=== PATIENT | female | born 1945 | race Caucasian/White ===

== ENCOUNTER 2016-10-17 17:40 | Inpatient (IN) | payer MEDICARE, OTHER ==
[~2016-10-17] VITALS: Ht 157.5 cm; Wt 78.2 kg
[~2016-10-17 17:40] MED LIST: ALBU8.5H6 IH; ASPI-482 PO; ASPI1TAB2 PO; BUPR100T7 PO; BUPR100T8 PO; BUSP10TA PO; CARB200T2 PO; CARB200T4 PO; CARV12.5 PO; CETI-17 PO; CHOL200044 PO; CIPR500T94 PO; DEXL60CA2 PO; DICL100G18 TP; DOCU-109 PO; DOMPERIDONE PO; DULO60CA6 PO; ESZO2TAB PO; FLUT16SP21 NS; GABA600T14 PO; HYDR25TA PO; INSU100I17 SQ; INSU100I27 SQ; INSU100V8 SQ; LEVO750T31 PO; MAG DELAY64 MG PO; MAGN1TAB PO; METF10002 PO; MONT10TA9 PO; MULT-246 PO; NOVALOG; OMEG500C PO; ONDA8TAB15 PO; OXYC-327 PO; POLY17PO5 PO; POTA500T5 PO; RANI150C PO; ROPI1TAB2 PO; SIMV10TA PO; SUCR1TAB PO; TAPE100T7 PO; TELM20TA PO; TIZA4TAB PO; [UNRECOGNIZED DRUG - CODE] PO
[2016-10-17] MEDS ORDERED: tiZANidine 4 MG TABLET. PO PRN (18:15)
[2016-10-17] MEDS ORDERED: DICLOFENAC SODIUM 1% TOPICAL GEL 100GM TUBE. TP PRN (18:15)
[2016-10-17] MEDS ORDERED: DOCUSATE SODIUM 100 MG CAPSULE PO PRN (18:15)
[2016-10-17 18:24] VITALS: BP 145/81
[2016-10-17] MEDS ORDERED: ONDANSETRON PF 4 MG/2 ML VIAL. IV PRN (18:30)
[2016-10-17] MEDS ORDERED: MAG HYDROX/AL HYDROX/SIMETH 30 ML ORAL.SUSP PO PRN (18:45)
[2016-10-17] MEDS ORDERED: ZOLPIDEM 5 MG TABLET. PO PRN (18:45)
[2016-10-17 19:39] LABS: BASO # 0.3 x10^3/uL (0.0-0.2); BASO % 1 % (0-3); EOS # 0.4 x10^3/uL (0.0-0.7); EOS % 2 % (0-3); HEMOGLOBIN 11.6 g/dL (12.0-15.5); LYMPH # 8.6 x10^3/uL (1.0-4.8); LYMPH % 39 % (24-48); MEAN CORPUSCULAR HEMOGLOBIN 30 pg (25-35); MEAN CORPUSCULAR HGB CONC 32 g/dL (31-37); MEAN CORPUSCULAR VOLUME 94 fL (79-100); MONO # 1.4 x10^3/uL (0.0-1.1); MONO % 6 % (0-9); NEUT # 11.6 x10^3uL (1.8-7.7); NEUT % 52 % (31-73); PLATELET COUNT 466 x10^3/uL (140-400); RED BLOOD COUNT 3.83 x10^6/uL (3.50-5.40); RED CELL DISTRIBUTION WIDTH 13.6 % (11.5-14.5); WHITE BLOOD COUNT 22.2 x10^3/uL (4.0-11.0)
[2016-10-17] MEDS ORDERED: BUPR150T8 PO (19:43)
[2016-10-17] MEDS ORDERED: ASPI81TA50 PO (19:47)
[2016-10-17] MEDS ORDERED: SIMV10TA PO (19:47)
[2016-10-17] MEDS ORDERED: CLON0.5T PO (19:47)
[2016-10-17] MEDS ORDERED: OMEG1CAP50 PO (19:47)
[2016-10-17] MEDS ORDERED: FERR-26 PO (19:47)
[2016-10-17 19:50] LABS: ALBUMIN 3.3 g/dL (3.4-5.0); ALBUMIN/GLOBULIN RATIO 0.7 (1.0-1.7); CALCIUM 8.8 mg/dL (8.5-10.1); CREATININE 1.2 mg/dL (0.6-1.0); GFR 44.3; POTASSIUM 4.2 mmol/L (3.5-5.1); TOTAL BILIRUBIN 0.2 mg/dL (0.2-1.0); TOTAL PROTEIN 8.2 g/dL (6.4-8.2)
[2016-10-17] MEDS ORDERED: MELO15TA6 PO (19:55)
[2016-10-17] MEDS ORDERED: PANT40TA3 PO (19:55)
[2016-10-17] MEDS ORDERED: LOSA25TA4 PO (19:55)
[2016-10-17] MEDS ORDERED: INSU100V31 SQ (19:55)
[2016-10-17] MEDS ORDERED: ASCO500T2 PO (19:55)
[2016-10-17] MEDS ORDERED: CYCL-331 PO (19:55)
[2016-10-17] MEDS ORDERED: ROPI1TAB PO (19:55)
[2016-10-17] MEDS ORDERED: NAPR500T PO (19:55)
[2016-10-17] MEDS ORDERED: MIRT15TA PO (19:55)
[2016-10-17] MEDS: IPRATRPIUM/ALBUTEROL 0.5/2.5MG 3 ML NEBU. NEB SCH (20:00)
[2016-10-17] MEDS ORDERED: AZITHROMYCIN 500 MG in IV NORMAL SALINE 250ML 250 ML IV SCH (20:00)
[2016-10-17] MEDS ORDERED: NORT25CA PO (20:10)
[2016-10-17 20:15] LABS: % EOS 2 % (0-5); % LYMPHS 42 % (24-48); % MONOS 10 % (0-10); % SEGS 46 % (35-66)
[2016-10-17 20:21] LABS: PLT ESTIMATE ADEQUATE (ADEQUATE)
[2016-10-17 20:22] LABS: ANISOCYTOSIS SLIGHT
[2016-10-17] MEDS ORDERED: DEXL60CA2 PO (20:46)
[2016-10-17] MEDS ORDERED: MIRT30TA3 PO (20:46)
[2016-10-17] MEDS ORDERED: ATOR10TA60 PO (20:46)
[2016-10-17] MEDS ORDERED: LISI-338 PO (20:47)
[2016-10-17] MEDS ORDERED: carBAMazepine XR 200 MG TAB.ER.12H PO SCH (21:00)
[2016-10-17] MEDS ORDERED: clonazePAM 0.5 MG TABLET PO SCH (21:00)
[2016-10-17] MEDS ORDERED: INSULIN DETEMIR 300 UNITS/3 ML INSULN.PEN. SQ SCH (21:00)
[2016-10-17] MEDS ORDERED: GABAPENTIN 300 MG CAPSULE. PO SCH (21:00)
[2016-10-17] MEDS ORDERED: SUCRALFATE 1 GM TABLET. PO SCH (21:00)
[2016-10-17] MEDS ORDERED: rOPINIRole 1 MG TABLET. PO SCH (21:00)
[2016-10-17] MEDS ORDERED: DULoxetine HCL 60 MG CAPSULE.DR PO SCH (21:00)
[2016-10-17] MEDS ORDERED: INSULIN ASPART 300 UNITS/3 ML INSULN.PEN SQ SCH (21:00)
[2016-10-17] MEDS ORDERED: NORTRIPTYLINE 25 MG CAPSULE PO SCH (21:00)
[2016-10-17] MEDS ORDERED: BUPR150T20 PO (21:21)
[2016-10-17] MEDS ORDERED: BUSP10TA PO (21:23)
[2016-10-17] MEDS ORDERED: NORT50CA PO (21:24)
[2016-10-17] MEDS ORDERED: AMLO5TAB2 PO (21:26)
[2016-10-17] MEDS ORDERED: IV NORMAL SALINE 250ML 250 ML ONE (22:09)
[2016-10-17] MEDS: ENOXAPARIN 40 MG/0.4 ML DISP.SYRIN. SQ SCH (22:35)
[2016-10-17] MEDS: MAGNESIUM CHLORIDE ER 64 MG TABLET.ER PO SCH (22:35)
[2016-10-17] MEDS: INSULIN DETEMIR 300 UNITS/3 ML INSULN.PEN. SQ SCH (22:40)
[2016-10-17] MEDS: INSULIN ASPART 300 UNITS/3 ML INSULN.PEN SQ SCH (22:41)
[2016-10-17 23:12] VITALS: BP 126/69
[2016-10-18] MEDS: IV NORMAL SALINE 1,000ML 1,000 ML IV SCH ×3 (03:30→21:23)
[2016-10-18 05:29] VITALS: BP 156/82
[2016-10-18] MEDS: IPRATRPIUM/ALBUTEROL 0.5/2.5MG 3 ML NEBU. NEB SCH ×4 (05:33→20:24)
[2016-10-18 06:27] LABS: BACTERIA,URINE 0 /HPF (0-FEW); BILIRUBIN,URINE NEG (NEG); CLARITY,URINE CLEAR; COLOR,URINE YELLOW; GLUCOSE,URINE NEG (NEG); HYALINE CASTS, URINE OCC /HPF; NITRITE,URINE NEG (NEG); RBC,URINE 0 /HPF (0-2); SQUAMOUS EPITHELIAL CELL,UR OCC /LPF; UROBILINOGEN,URINE 0.2 mg/dL (0.2 mg/dL)
[2016-10-18 06:36] LABS: BASO # 0.2 x10^3/uL (0.0-0.2); BASO % 1 % (0-3); EOS # 0.5 x10^3/uL (0.0-0.7); EOS % 2 % (0-3); HEMOGLOBIN 10.3 g/dL (12.0-15.5); LYMPH # 8.6 x10^3/uL (1.0-4.8); LYMPH % 39 % (24-48); MEAN CORPUSCULAR HEMOGLOBIN 31 pg (25-35); MEAN CORPUSCULAR HGB CONC 32 g/dL (31-37); MEAN CORPUSCULAR VOLUME 95 fL (79-100); MONO # 1.2 x10^3/uL (0.0-1.1); MONO % 6 % (0-9); NEUT # 11.4 x10^3uL (1.8-7.7); NEUT % 52 % (31-73); PLATELET COUNT 400 x10^3/uL (140-400); RED BLOOD COUNT 3.36 x10^6/uL (3.50-5.40); RED CELL DISTRIBUTION WIDTH 13.6 % (11.5-14.5); WHITE BLOOD COUNT 21.9 x10^3/uL (4.0-11.0)
[2016-10-18 06:44] LABS: CALCIUM 8.3 mg/dL (8.5-10.1); CREATININE 1.2 mg/dL (0.6-1.0); GFR 44.3; POTASSIUM 4.7 mmol/L (3.5-5.1)
[2016-10-18] MEDS ORDERED: metFORMIN 500 MG TABLET PO SCH (08:00)
[2016-10-18] MEDS: amLODIPine BESYLATE 5 MG TABLET PO SCH (08:42)
[2016-10-18] MEDS: DULoxetine HCL 60 MG CAPSULE.DR PO SCH (08:42)
[2016-10-18] MEDS: ASPIRIN ENTERIC COATED 81 MG TABLET.DR. PO SCH (08:42)
[2016-10-18] MEDS: DEXLANSOPRAZOLE 60 MG PO SCH (08:42)
[2016-10-18] MEDS: MONTELUKAST 10 MG TABLET. PO SCH (08:43)
[2016-10-18] MEDS: METFORMIN PO SCH ×2 (08:43→17:12)
[2016-10-18] MEDS: busPIRone 10 MG TABLET. PO SCH ×3 (08:43→21:25)
[2016-10-18] MEDS: buPROPion SR 150 MG TABLET.SA PO SCH ×2 (08:43→12:03)
[2016-10-18] MEDS: MAGNESIUM CHLORIDE ER 64 MG TABLET.ER PO SCH ×2 (08:49→21:30)
[2016-10-18] MEDS: FLUTICASONE 50MCG/NASAL SPRAY 16GM BOTTLE. NS SCH (08:49)
[2016-10-18] MEDS: INSULIN DETEMIR 300 UNITS/3 ML INSULN.PEN. SQ SCH ×2 (08:59→21:35)
[2016-10-18] MEDS ORDERED: ASPIRIN ENTERIC COATED 81 MG TABLET.DR. PO SCH (09:00)
[2016-10-18] MEDS ORDERED: MONTELUKAST 10 MG TABLET. PO SCH (09:00)
[2016-10-18] MEDS ORDERED: LOSARTAN 25 MG TABLET. PO SCH (09:00)
--- NOTE | 2016-10-18 09:23 | RAD ---
INDICATION: Infectious symptoms with concern for pneumonia COMPARISON: 12/19/2014 TECHNIQUE: Axial CT images obtained through the chest. No intravenous contrast. FINDINGS: Mild linear opacity bilateral lower lungs. No evidence of pneumothorax. Severe coronary artery calcific atherosclerosis. Leads are seen within the central canal. Thoracic aorta is nonaneurysmal. Degenerative changes the spine with osteophyte formation. IMPRESSION: 1. Mild linear opacities in bilateral lungs. Given the morphology would favor atelectasis or scarring as the etiology. 2. Severe calcific atherosclerosis including coronary arteries. 3. Degenerative changes of spine. 4. The partially visualized humeral head on the right there is relative lucency throughout the marrow. Could be from benign osseous demineralization but would correlate with symptoms in the region and history of neoplasm to ensure that there is not a more worrisome infiltrative process which is considered less likely. PQRS Compliance Statement: One or more of the following individualized dose reduction techniques were utilized for this examination: 1. Automated exposure control 2. Adjustment of the mA and/or kV according to patient size 3. Use of iterative reconstruction technique
--- NOTE | 2016-10-18 09:56 | PDOC ---
SUBJECTIVE: Feels better OBJECTIVE: WDWN NAD Alert and oriented feels better mild throat normal neck supple Lungs diminished poor movement of air but improved CVR exam regular sinus rhythm Abdomen soft nontender no rebounding or guarding positive bowel sounds External concerns edema Neurologically alert and oriented 3 Vital Signs: Vital Signs Date Time Temp Pulse Resp B/P (MAP) Pulse Ox O2 Delivery O2 Flow Rate FiO2 10/18/16 09:28 95 Room Air 10/18/16 08:42 105 156/82 10/18/16 05:29 97.3 16 I & O Intake and Output 10/18/16 07:00 Intake Total 1748 ml Balance 1748 ml Intake Oral 1150 ml IV Total 598 ml Labs: Laboratory Tests Test 10/17/16 18:43 10/17/16 21:40 10/17/16 22:37 10/18/16 01:55 White Blood Count 22.2 x10^3/uL (4.0-11.0) Red Blood Count 3.83 x10^6/uL (3.50-5.40) Hemoglobin 11.6 g/dL (12.0-15.5) Hematocrit 36.0 % (36.0-47.0) Mean Corpuscular Volume 94 fL (79-100) Mean Corpuscular Hemoglobin 30 pg (25-35) Mean Corpuscular Hemoglobin Concent 32 g/dL (31-37) Red Cell Distribution Width 13.6 % (11.5-14.5) Platelet Count 466 x10^3/uL (140-400) Neutrophils (%) (Auto) 52 % (31-73) Lymphocytes (%) (Auto) 39 % (24-48) Monocytes (%) (Auto) 6 % (0-9) Eosinophils (%) (Auto) 2 % (0-3) Basophils (%) (Auto) 1 % (0-3) Neutrophils # (Auto) 11.6 x10^3uL (1.8-7.7) Lymphocytes # (Auto) 8.6 x10^3/uL (1.0-4.8) Monocytes # (Auto) 1.4 x10^3/uL (0.0-1.1) Eosinophils # (Auto) 0.4 x10^3/uL (0.0-0.7) Basophils # (Auto) 0.3 x10^3/uL (0.0-0.2) Segmented Neutrophils % 46 % (35-66) Lymphocytes % 42 % (24-48) Monocytes % 10 % (0-10) Eosinophils % 2 % (0-5) Platelet Estimate Adequate (ADEQUATE) Large Platelets Present Anisocytosis Slight D-Dimer (Avis) 0.41 mg/L (0.00-0.50) Sodium Level 138 mmol/L (136-145) Potassium Level 4.2 mmol/L (3.5-5.1) Chloride Level 105 mmol/L (98-107) Carbon Dioxide Level 22 mmol/L (21-32) Anion Gap 11 (6-14) Blood Urea Nitrogen 29 mg/dL (7-20) Creatinine 1.2 mg/dL (0.6-1.0) Estimated GFR (Cockcroft-Gault) 44.3 BUN/Creatinine Ratio 24 (6-20) Glucose Level 112 mg/dL (70-99) Calcium Level 8.8 mg/dL (8.5-10.1) Total Bilirubin 0.2 mg/dL (0.2-1.0) Aspartate Amino Transf (AST/SGOT) 32 U/L (15-37) Alanine Aminotransferase (ALT/SGPT) 42 U/L (14-59) Alkaline Phosphatase 71 U/L (46-116) Total Protein 8.2 g/dL (6.4-8.2) Albumin 3.3 g/dL (3.4-5.0) Albumin/Globulin Ratio 0.7 (1.0-1.7) Lactic Acid Level 5.2 mmol/L (0.4-2.0) 3.1 mmol/L (0.4-2.0) Glucose (Fingerstick) 169 mg/dL (70-99) Test 10/18/16 05:45 10/18/16 06:05 10/18/16 07:53 White Blood Count 21.9 x10^3/uL (4.0-11.0) Red Blood Count 3.36 x10^6/uL (3.50-5.40) Hemoglobin 10.3 g/dL (12.0-15.5) Hematocrit 32.0 % (36.0-47.0) Mean Corpuscular Volume 95 fL (79-100) Mean Corpuscular Hemoglobin 31 pg (25-35) Mean Corpuscular Hemoglobin Concent 32 g/dL (31-37) Red Cell Distribution Width 13.6 % (11.5-14.5) Platelet Count 400 x10^3/uL (140-400) Neutrophils (%) (Auto) 52 % (31-73) Lymphocytes (%) (Auto) 39 % (24-48) Monocytes (%) (Auto) 6 % (0-9) Eosinophils (%) (Auto) 2 % (0-3) Basophils (%) (Auto) 1 % (0-3) Neutrophils # (Auto) 11.4 x10^3uL (1.8-7.7) Lymphocytes # (Auto) 8.6 x10^3/uL (1.0-4.8) Monocytes # (Auto) 1.2 x10^3/uL (0.0-1.1) Eosinophils # (Auto) 0.5 x10^3/uL (0.0-0.7) Basophils # (Auto) 0.2 x10^3/uL (0.0-0.2) Sodium Level 141 mmol/L (136-145) Potassium Level 4.7 mmol/L (3.5-5.1) Chloride Level 106 mmol/L (98-107) Carbon Dioxide Level 22 mmol/L (21-32) Anion Gap 13 (6-14) Blood Urea Nitrogen 29 mg/dL (7-20) Creatinine 1.2 mg/dL (0.6-1.0) Estimated GFR (Cockcroft-Gault) 44.3 Glucose Level 143 mg/dL (70-99) Calcium Level 8.3 mg/dL (8.5-10.1) Urine Collection Type Void Urine Color Yellow Urine Clarity Clear Urine pH 5.0 Urine Specific Comstock 1.020 Urine Protein 30 mg/dl (NEG-TRACE) Urine Glucose (UA) Neg mg/dL (NEG) Urine Ketones (Stick) Neg mg/dL (NEG) Urine Blood Neg (NEG) Urine Nitrite Neg (NEG) Urine Bilirubin Neg (NEG) Urine Urobilinogen Dipstick 0.2 mg/dL (0.2 mg/dL) Urine Leukocyte Esterase Small (NEG) Urine RBC 0 /HPF (0-2) Urine WBC 1-4 /HPF (0-4) Urine Squamous Epithelial Cells Occ /LPF Urine Bacteria 0 /HPF (0-FEW) Urine Hyaline Casts Occ /HPF Urine Mucus Slight /LPF Glucose (Fingerstick) 135 mg/dL (70-99) ASSESSMENT: Sepsis Pneumonia and unspecified etiology community-acquired Leukocytosis secondary to sepsis and pneumonia type 2 diabetes Obesity PLAN: Continue with IV antibiotic therapy switched from Zithromax to Levaquin and Rocephin continue to monitor accordingly JAYMIE GE MD Oct 18, 2016 09:56
[2016-10-18 10:52] VITALS: BP 163/70
--- NOTE | 2016-10-18 11:10 | EKG ---
[address] [address] Test Date: 2016-10-18 Test Time: 05:58:18 Pat Name: PAMELA CAIN Department: Room: 105 A Gender: F [employer] Operator: NAIMA : 1945 Requested By: JAYMIE EG Order Number: [id number] Reading MD: Shahid Medrano Measurements Intervals [place] Rate: 102 P: 36 WV: 186 QRS: -41 QRSD: 74 T: 77 QT: 342 QTc: 450 Interpretive Statements SINUS TACHYCARDIA ABNORMAL LEFT AXIS DEVIATION QRS(T) CONTOUR ABNORMALITY CONSIDER ANTEROLATERAL MYOCARDIAL DAMAGE ABNORMAL ECG Electronically Signed On 10-30-2016 14:24:08 CDT by Shahid Medrano
[2016-10-18] MEDS: INSULIN ASPART 300 UNITS/3 ML INSULN.PEN SQ SCH ×2 (12:05→17:16)
[2016-10-18] MEDS: LACTOBACILLUS ACIDOPH & BULGAR 1 TABLET. PO SCH ×2 (13:43→21:30)
[2016-10-18 14:40] VITALS: BP 144/75
[2016-10-18] MEDS ORDERED: buPROPion SR 100 MG TABLET.SA. PO SCH (16:00)
[2016-10-18 17:46] VITALS: BP 150/79
[2016-10-18] MEDS: clonazePAM 0.5 MG TABLET PO PRN (21:26)
[2016-10-18] MEDS: rOPINIRole 1 MG TABLET. PO SCH (21:27)
[2016-10-18] MEDS: NORTRIPTYLINE 50 MG PO SCH (21:27)
[2016-10-18] MEDS: ATORVASTATIN CALCIUM 10 MG TABLET. PO SCH (21:28)
[2016-10-18] MEDS: MIRTAZAPINE 30 MG TABLET PO SCH (21:28)
[2016-10-18] MEDS: carBAMazepine XR 200 MG TAB.ER.12H PO SCH (21:29)
[2016-10-18] MEDS: ENOXAPARIN 40 MG/0.4 ML DISP.SYRIN. SQ SCH (21:30)
[2016-10-18 23:31] VITALS: BP 155/78
[2016-10-19 01:07] LABS: HEMOGLOBIN A1C 7.4 % (4.8-5.6)
[2016-10-19] MEDS: IPRATRPIUM/ALBUTEROL 0.5/2.5MG 3 ML NEBU. NEB SCH ×4 (05:48→20:27)
[2016-10-19 06:05] VITALS: BP 157/84
[2016-10-19 06:29] LABS: BASO # 0.1 x10^3/uL (0.0-0.2); BASO % 0 % (0-3); EOS # 0.8 x10^3/uL (0.0-0.7); EOS % 4 % (0-3); HEMATOCRIT 33.1 % (36.0-47.0); HEMOGLOBIN 10.8 g/dL (12.0-15.5); LYMPH % 44 % (24-48); MEAN CORPUSCULAR HEMOGLOBIN 31 pg (25-35); MEAN CORPUSCULAR HGB CONC 33 g/dL (31-37); MEAN CORPUSCULAR VOLUME 95 fL (79-100); MONO # 1.6 x10^3/uL (0.0-1.1); MONO % 8 % (0-9); NEUT % 44 % (31-73); PLATELET COUNT 408 x10^3/uL (140-400); RED CELL DISTRIBUTION WIDTH 13.7 % (11.5-14.5); WHITE BLOOD COUNT 20.4 x10^3/uL (4.0-11.0)
[2016-10-19 06:43] LABS: CALCIUM 8.8 mg/dL (8.5-10.1); CREATININE 0.9 mg/dL (0.6-1.0); GFR 61.7; POTASSIUM 4.2 mmol/L (3.5-5.1)
[2016-10-19] MEDS: INSULIN ASPART 300 UNITS/3 ML INSULN.PEN SQ SCH ×3 (07:30→16:30)
[2016-10-19] MEDS: MAGNESIUM CHLORIDE ER 64 MG TABLET.ER PO SCH ×2 (07:59→22:08)
[2016-10-19] MEDS: LACTOBACILLUS ACIDOPH & BULGAR 1 TABLET. PO SCH ×3 (07:59→22:09)
[2016-10-19] MEDS: FLUTICASONE 50MCG/NASAL SPRAY 16GM BOTTLE. NS SCH (08:00)
[2016-10-19] MEDS: DEXLANSOPRAZOLE 60 MG PO SCH (08:01)
[2016-10-19] MEDS: MONTELUKAST 10 MG TABLET. PO SCH (08:01)
[2016-10-19] MEDS: DULoxetine HCL 60 MG CAPSULE.DR PO SCH (08:02)
[2016-10-19] MEDS: busPIRone 10 MG TABLET. PO SCH ×3 (08:02→22:09)
[2016-10-19] MEDS: amLODIPine BESYLATE 5 MG TABLET PO SCH (08:03)
[2016-10-19] MEDS: METFORMIN PO SCH ×2 (08:04→16:51)
[2016-10-19] MEDS: ASPIRIN ENTERIC COATED 81 MG TABLET.DR. PO SCH (08:04)
[2016-10-19] MEDS: buPROPion SR 150 MG TABLET.SA PO SCH ×2 (08:04→12:13)
[2016-10-19 08:12] LABS: % EOS 1 % (0-5); % LYMPHS 47 % (24-48); % MONOS 7 % (0-10); % SEGS 45 % (35-66); PLT ESTIMATE INCREASED (ADEQUATE)
[2016-10-19] MEDS: INSULIN DETEMIR 300 UNITS/3 ML INSULN.PEN. SQ SCH ×2 (09:00→22:18)
[2016-10-19 10:43] VITALS: BP 171/74
[2016-10-19] MEDS: IV NORMAL SALINE 1,000ML 1,000 ML IV SCH ×2 (11:31→21:19)
[2016-10-19] MEDS: ASA/APAP/CAFFEINE 250/250/65MG TABLET. PO PRN ×2 (13:55→22:09)
[2016-10-19 14:37] VITALS: BP 170/83
--- NOTE | 2016-10-19 14:38 | RAD ---
INDICATION:infiltrative process in the right humerus COMPARISON: None. FINDINGS: 25 mCi technetium 99m MDP was injected intravenously. Time was allowed for osseous uptake and scintigraphic images were obtained through the chest and humerus bilaterally. There is expected radiotracer distribution throughout the visualized osseous structures. There is some mild radiotracer uptake seen within the bilateral shoulders and elbows but a large focus of focally increased radiotracer uptake is not seen within the right humeral head. There is a small focus of increased radiotracer uptake at one of the left lower ribs posteriorly. IMPRESSION: Small foci of increased radiotracer uptake are seen within the bilateral shoulders, spine and elbows. Nonspecific appearance but can be seen with degenerative changes. There is not a definite focal region of increased radiotracer uptake within the right humeral head at the region of lucency seen on CT. Focus of increased radiotracer uptake is seen within one of the left lower ribs posteriorly. This is of unknown etiology but would correlate with symptoms in the region to ensure that there is not a posttraumatic cause such as a nondisplaced fracture or contusion. There is a subtle linear band of sclerosis in one of the left lower ribs on recent CT.
[2016-10-19 19:15] VITALS: BP 156/78
[2016-10-19] MEDS: ENOXAPARIN 40 MG/0.4 ML DISP.SYRIN. SQ SCH (22:08)
[2016-10-19] MEDS: MIRTAZAPINE 30 MG TABLET PO SCH (22:10)
[2016-10-19] MEDS: ATORVASTATIN CALCIUM 10 MG TABLET. PO SCH (22:11)
[2016-10-19] MEDS: clonazePAM 0.5 MG TABLET PO PRN (22:11)
[2016-10-19] MEDS: rOPINIRole 1 MG TABLET. PO SCH (22:12)
[2016-10-19] MEDS: NORTRIPTYLINE 50 MG PO SCH (22:13)
[2016-10-19] MEDS: carBAMazepine XR 200 MG TAB.ER.12H PO SCH (22:13)
[2016-10-19 23:07] VITALS: BP 163/82
[2016-10-20 05:10] VITALS: BP 177/92
[2016-10-20] MEDS: IV NORMAL SALINE 1,000ML 1,000 ML IV SCH ×2 (05:30→05:38)
[2016-10-20] MEDS: IPRATRPIUM/ALBUTEROL 0.5/2.5MG 3 ML NEBU. NEB SCH ×2 (05:31→11:36)
[2016-10-20 06:08] LABS: BASO # 0.2 x10^3/uL (0.0-0.2); BASO % 1 % (0-3); EOS # 0.7 x10^3/uL (0.0-0.7); EOS % 3 % (0-3); HEMATOCRIT 32.6 % (36.0-47.0); HEMOGLOBIN 10.6 g/dL (12.0-15.5); LYMPH # 9.3 x10^3/uL (1.0-4.8); LYMPH % 44 % (24-48); MEAN CORPUSCULAR HEMOGLOBIN 30 pg (25-35); MEAN CORPUSCULAR HGB CONC 32 g/dL (31-37); MEAN CORPUSCULAR VOLUME 94 fL (79-100); MONO # 1.6 x10^3/uL (0.0-1.1); MONO % 8 % (0-9); NEUT # 9.1 x10^3uL (1.8-7.7); NEUT % 43 % (31-73); PLATELET COUNT 389 x10^3/uL (140-400); RED BLOOD COUNT 3.47 x10^6/uL (3.50-5.40); RED CELL DISTRIBUTION WIDTH 13.4 % (11.5-14.5)
[2016-10-20 06:11] LABS: CALCIUM 8.6 mg/dL (8.5-10.1); CREATININE 0.8 mg/dL (0.6-1.0); GFR 70.7; POTASSIUM 3.8 mmol/L (3.5-5.1)
[2016-10-20] MEDS: METFORMIN PO SCH (08:00)
[2016-10-20] MEDS: buPROPion SR 150 MG TABLET.SA PO SCH ×2 (08:00→12:05)
[2016-10-20] MEDS: FLUTICASONE 50MCG/NASAL SPRAY 16GM BOTTLE. NS SCH (08:01)
[2016-10-20] MEDS: DEXLANSOPRAZOLE 60 MG PO SCH (08:01)
[2016-10-20] MEDS: LACTOBACILLUS ACIDOPH & BULGAR 1 TABLET. PO SCH (08:02)
[2016-10-20] MEDS: ASPIRIN ENTERIC COATED 81 MG TABLET.DR. PO SCH (08:02)
[2016-10-20] MEDS: busPIRone 10 MG TABLET. PO SCH (08:03)
[2016-10-20] MEDS: MAGNESIUM CHLORIDE ER 64 MG TABLET.ER PO SCH (08:04)
[2016-10-20] MEDS: DULoxetine HCL 60 MG CAPSULE.DR PO SCH (08:04)
[2016-10-20] MEDS: amLODIPine BESYLATE 5 MG TABLET PO SCH (08:05)
[2016-10-20] MEDS: MONTELUKAST 10 MG TABLET. PO SCH (08:05)
[2016-10-20] MEDS: INSULIN DETEMIR 300 UNITS/3 ML INSULN.PEN. SQ SCH (08:23)
[2016-10-20] MEDS: INSULIN ASPART 300 UNITS/3 ML INSULN.PEN SQ SCH ×2 (08:23→11:30)
[2016-10-20] MEDS: ASA/APAP/CAFFEINE 250/250/65MG TABLET. PO PRN (08:29)
[2016-10-20] MEDS ORDERED: GUAI237L83 PO (11:09)
[2016-10-20 11:46] VITALS: BP 166/80
--- NOTE | 2016-10-27 12:27 | DS ---
DATE OF DISCHARGE: 10/20/2016 HOSPITAL COURSE: A 71-year-old female brought in with increased shortness of breath, sepsis. The patient is extremely weak for about a week or so prior to admission and had elevated white counts of over 20,000, hemoglobin remained low. The patient made excellent progress during the rest of her hospitalization and her white count then came down. She responded nicely to all the other medications given to her and made good progress during the rest of her hospitalization. She was discharged home. She will be followed up with me in the office. Bone scan was performed of her right humerus negative. In any case, the patient made good progress during the rest of her hospitalization. She was discharged home and followed up as an outpatient. Regular diet. Decreased activity. Continue outpatient therapy as noted. She will return to clinic in 1-2 days or sooner and further evaluation at that time. JAYMIE GE MD DR: MAURIZIO/luis angel JOB#: [id number] / [id number]
--- NOTE | 2016-10-31 14:40 | PATHOLOGY ---
PATHOLOGY REPORT * * * * * * * * FINAL DIAGNOSIS: Peripheral smear: - Mild leukocytosis with a mild absolute neutrophilia with leukoerythroblastic reaction, and with an absolute lymphocytosis comprised of small lymphocytes. - Normocytic normochromic anemia, mild. - Thrombocytosis, mild. COMMENT: The peripheral smear shows a mild leukocytosis. There is a mild absolute neutrophilia with leukoerythroblastic reaction. This is most likely reactive secondary to an infectious or inflammatory process. There is also an absolute lymphocytosis comprised of small lymphocytes. Given the patient's age, the findings are suggestive of a chronic lymphoproliferative disorder, such as CLL. If the lymphocytosis persists, would recommend sending peripheral blood for lymphocyte marker studies by flow cytometry. The peripheral smear also shows a mild normocytic normochromic anemia and mild thrombocytosis, the latter of which is most likely reactive. (JPM:mml; 10/31/2016) REPORT ELECTRONICALLY SIGNED BY: Gary Kim M.D. DATE/TIME: 10/31/2016 14:40 * * * * * * * * MICROSCOPIC DESCRIPTION: Laboratory Data: The CBC results are dated 10/17. The WBC count is 22.2 K/CMM, and the WBC differential reveals 46% segmented neutrophils, 42% lymphs, 10% monos, and 2% eos. The RBC count is 3.83 M/CMM, hemoglobin 11.6 G/DL, hematocrit 36.0%, MCV 94 FL, MCH 30 PG, MCHC 32 G/DL, and the RDW is 13.6%. The platelet count is 466 K/CMM. Peripheral Smear: The peripheral smear is reviewed. The WBC count is mildly increased. There is both an absolute neutrophilia and an absolute lymphocytosis. The WBC differential reveals a predominance of segmented neutrophils, with a slightly smaller population of lymphocytes and with several monocytes and an occasional eosinophil noted. The cytoplasm of neutrophils is pale staining and hypogranular. There is a leukoerythroblastic reaction comprised of rare circulating immature granulocytes and a rare circulating nucleated red blood cell. There are no circulating blasts. The lymphocyte population consists predominantly of small lymphocytes having a high N/C ratio. The lymphocytes have scanty cytoplasm, and possess rounded nuclei having a coarsely condensed chromatin. Red blood cells appear normocytic and normochromic and show no significant anisopoikilocytosis. Platelets are normal in number. A few large platelets are noted. GROSS PATHOLOGY: Received are two Day stained peripheral blood smears, labeled, Pamela Smith. INITIAL CPT CODE(S): 99289 Professional services performed by [facility] at [address] [address] Technical services performed by [facility] at [address] [place] [address], [facility] [address] [address]. SPECIMEN(S) RECEIVED: A.Peripheral smear CLINICAL HISTORY: Pneumonia, leukocytosis, sepsis; physician requests pathologist review of PBS PATIENT: PAMELA SMITH /AGE: 5 1945 (Age: 71) PATIENT #: [id number] ALT CASE #: SPECIMEN COLLECTION DATE: 10/19/2016 SPECIMEN RECEIVED DATE: 10/28/2016 [facility] - [address] [place] [address] - PHONE: [phone] * * * END OF REPORT * * *
== END 2016-10-20 13:45 | disposition home or self-care (01) | DRG 871 ==
LOC: 1 SOUTH 17:40
PROVIDERS: ADMIT Family Medicine; ATTEND Family Medicine
DX: A41.9 Sepsis, unspecified organism (principal); J18.9 Pneumonia, unspecified organism; Y95 Nosocomial condition; E66.9 Obesity, unspecified; E11.9 Type 2 diabetes mellitus without complications; Z68.31 Body mass index [BMI] 31.0-31.9, adult; Z88.8 Allergy status to other drugs, medicaments and biological substances; Z91.018 Allergy to other foods; Z79.899 Other long term (current) drug therapy
CPT/HCPCS: 36415; 71250; 78300; 80048; 80053; 81001; 82947; 83036; 83605; 85007; 85027; 85379; 87040; 87086; 87324; 93005; 94640; 96374; A9503; J0456; J0696; J1650; J1815; J1956; J2405; J7050; J7620; J7030

== ENCOUNTER → 2016-11-23 | Outpatient (CLI) | payer MEDICARE, OTHER ==
[~2016-11-23] MED LIST changes: +AMLO5TAB2 PO; +ASCO500T2 PO; +ASPI81TA50 PO; +ATOR10TA60 PO; +BUPR150T20 PO; +BUPR150T8 PO; +CLON0.5T PO; +CYCL-331 PO; +FERR-26 PO; +GUAI237L83 PO; +INSU100V31 SQ; +LISI-338 PO; +LOSA25TA4 PO; +MELO15TA6 PO; +MIRT15TA PO; +MIRT30TA3 PO; +NAPR500T PO; +NORT25CA PO; +NORT50CA PO; +OMEG1CAP50 PO; +PANT40TA3 PO; +ROPI1TAB PO
--- NOTE | 2016-11-23 16:53 | RAD ---
Maxillofacial CT without IV contrast Indication: Chronic sinusitis Technique: CT of the maxillofacial bones with multiplanar reformats without IV contrast Comparison: None Findings: The frontal sinuses, sphenoid sinuses, ethmoid air cells are clear without evidence of mucoperiosteal thickening or polyps. Mucus retention cyst or polyp is seen within right maxillary sinus in the posteromedial aspect. Mild mucoperiosteal thickening or mucous is seen in the dependent portion of the left maxilla sinus. Mastoid air cells are clear. Orbits within normal limits. Nasal septum is slightly deviated to the right. No suspicious bony lesions. Visualized noncontrast appearance of the brain is within normal limits. The nasopharynx and oropharynx are within normal limits. The temporomandibular joints are within normal limits. Atherosclerotic disease of bilateral cavernous carotid arteries. Impression: Mucous retention cyst or polyp within the right maxilla sinus. Mild apical paracervical thickening or dependent mucus within left maxillary sinus. Rest of the sinuses are clear. PQRS Compliance Statement: One or more of the following individualized dose reduction techniques were utilized for this examination: 1. Automated exposure control 2. Adjustment of the mA and/or kV according to patient size 3. Use of iterative reconstruction technique
== END | disposition home or self-care (01) ==
LOC: CT 13:30
PROVIDERS: ATTEND Otolaryngology
DX: J32.9 Chronic sinusitis, unspecified (principal); I65.23 Occlusion and stenosis of bilateral carotid arteries
CPT/HCPCS: 70486

== ENCOUNTER 2016-12-06 15:18 | Inpatient (IN) | payer MEDICARE, OTHER ==
[~2016-12-06] VITALS: Ht 144.8 cm; Wt 74.6 kg
[2016-12-06 15:53] VITALS: BP 117/72
[2016-12-06] MEDS ORDERED: IV NORMAL SALINE 1,000ML 1,000 ML IV SCH (16:00)
[2016-12-06 16:28] LABS: BASO # 0.1 x10^3/uL (0.0-0.2); BASO % 1 % (0-3); EOS # 0.4 x10^3/uL (0.0-0.7); EOS % 2 % (0-3); HEMATOCRIT 40.4 % (36.0-47.0); HEMOGLOBIN 12.9 g/dL (12.0-15.5); LYMPH % 38 % (24-48); MEAN CORPUSCULAR HEMOGLOBIN 30 pg (25-35); MEAN CORPUSCULAR HGB CONC 32 g/dL (31-37); MEAN CORPUSCULAR VOLUME 94 fL (79-100); MONO % 6 % (0-9); NEUT # 9.8 x10^3uL (1.8-7.7); NEUT % 54 % (31-73); PLATELET COUNT 446 x10^3/uL (140-400); RED BLOOD COUNT 4.32 x10^6/uL (3.50-5.40); RED CELL DISTRIBUTION WIDTH 13.7 % (11.5-14.5); WHITE BLOOD COUNT 18.3 x10^3/uL (4.0-11.0)
[2016-12-06 16:35] LABS: ALBUMIN 3.8 g/dL (3.4-5.0); ALBUMIN/GLOBULIN RATIO 0.8 (1.0-1.7); CALCIUM 8.7 mg/dL (8.5-10.1); CREATININE 1.3 mg/dL (0.6-1.0); GFR 40.4; POTASSIUM 4.8 mmol/L (3.5-5.1); TOTAL BILIRUBIN 0.2 mg/dL (0.2-1.0); TOTAL PROTEIN 8.6 g/dL (6.4-8.2)
[2016-12-06] MEDS: IPRATRPIUM/ALBUTEROL 0.5/2.5MG 3 ML NEBU. NEB SCH ×2 (16:56→22:07)
--- NOTE | 2016-12-06 17:06 | RAD ---
Paranasal sinuses, 4 views, 12/06/2016: History: Left frontal and ethmoid pain, congestion The paranasal sinuses are clear. There is mild deviation of the nasal septum to the right of midline. No bone destruction is evident. IMPRESSION: No significant paranasal sinus abnormality is detected.
--- NOTE | 2016-12-06 17:09 | RAD ---
Chest, 2 views, 12/06/2016: History: Shortness of breath Comparison is made to a study from 12/20/2014. The heart size and pulmonary vascularity are within normal limits. There is mild bibasilar linear scarring and/or atelectasis. No pulmonary consolidation is seen. There is no evidence of significant pleural fluid. Spinal stimulator electrodes extend into the lower thoracic spinal canal. There are moderate scattered spurs in the spine. IMPRESSION: Mild bibasilar linear scarring and/or atelectasis.
--- NOTE | 2016-12-06 18:05 | PDOC ---
Exam Armani Demential Exam: Armani Note: Please also refer to the separate dictated note~for this date of service dictated separately.~Patient seen individually. Discussed the patient with Nursing staff reviewed the chart.~Reviewed interim history and current functioning. Reviewed vital signs,~Labs/ Radiology~and current medications noted below. Continue current treatment with the changes noted in the dictated addendum note Assessment: Vital Signs: Vital Signs Date Time Temp Pulse Resp B/P (MAP) Pulse Ox O2 Delivery O2 Flow Rate FiO2 12/06/16 17:42 Room Air 12/06/16 16:57 96 12/06/16 15:53 97.7 100 20 117/72 (87) Labs: Laboratory Tests Test 12/06/16 16:00 White Blood Count 18.3 x10^3/uL (4.0-11.0) H Red Blood Count 4.32 x10^6/uL (3.50-5.40) Hemoglobin 12.9 g/dL (12.0-15.5) Hematocrit 40.4 % (36.0-47.0) Mean Corpuscular Volume 94 fL (79-100) Mean Corpuscular Hemoglobin 30 pg (25-35) Mean Corpuscular Hemoglobin Concent 32 g/dL (31-37) Red Cell Distribution Width 13.7 % (11.5-14.5) Platelet Count 446 x10^3/uL (140-400) H Neutrophils (%) (Auto) 54 % (31-73) Lymphocytes (%) (Auto) 38 % (24-48) Monocytes (%) (Auto) 6 % (0-9) Eosinophils (%) (Auto) 2 % (0-3) Basophils (%) (Auto) 1 % (0-3) Neutrophils # (Auto) 9.8 x10^3uL (1.8-7.7) H Lymphocytes # (Auto) 7.0 x10^3/uL (1.0-4.8) H Monocytes # (Auto) 1.0 x10^3/uL (0.0-1.1) Eosinophils # (Auto) 0.4 x10^3/uL (0.0-0.7) Basophils # (Auto) 0.1 x10^3/uL (0.0-0.2) Platelet Estimate Pending Sodium Level 137 mmol/L (136-145) Potassium Level 4.8 mmol/L (3.5-5.1) Chloride Level 103 mmol/L (98-107) Carbon Dioxide Level 22 mmol/L (21-32) Anion Gap 12 (6-14) Blood Urea Nitrogen 25 mg/dL (7-20) H Creatinine 1.3 mg/dL (0.6-1.0) H Estimated GFR (Cockcroft-Gault) 40.4 BUN/Creatinine Ratio 19 (6-20) Glucose Level 199 mg/dL (70-99) H Lactic Acid Level 3.3 mmol/L (0.4-2.0) H Calcium Level 8.7 mg/dL (8.5-10.1) Total Bilirubin 0.2 mg/dL (0.2-1.0) Aspartate Amino Transferase (AST) 30 U/L (15-37) Alanine Aminotransferase (ALT) 45 U/L (14-59) Alkaline Phosphatase 77 U/L (46-116) Troponin I Quantitative < 0.017 ng/mL (0-0.055) YF-Qin-N-Type Natriuretic Peptide 45 pg/mL (0-124) Total Protein 8.6 g/dL (6.4-8.2) H Albumin 3.8 g/dL (3.4-5.0) Albumin/Globulin Ratio 0.8 (1.0-1.7) L Current Medications: Meds: Current Medications Ceftriaxone Sodium 1 gm/ Sodium Chloride 50 ml @ 100 mls/hr Q24H IV Last administered on 12/06/16 16:36; Start 12/06/16 at 16:00 Sodium Chloride 1,000 ml @ 75 mls/hr [id number] IV Last administered on 12/06/16 16:00; Start 12/06/16 at 16:00 Albuterol/ Ipratropium (Duoneb) 3 ml RTQID NEB Last administered on 12/06/16 16 :56; Start 12/06/16 at 16:00 Active Scripts Active Robitussin Cough-Chest Dm Liq (Guaifenesin/Dextromethorphan) 237 Ml Liquid 237 Ml PO Q6HRS PRN 10 Days as directions on bottle Novolog Flexpen (Insulin Aspart) 100 Unit/1 Ml Insuln.pen 100 Unit SQ QIDACHS 6 units with every meals + sliding scale inuslin for high blood sugar blood glucose: 151-200 = 3 units if eating, 0 units if not eating. 201-250= 4 units if eating, 2 units if not eating. 251-300= 6 units if eating, 3 units if not eating. 301-351= 7 units if eating, 4 units if not eating. >351= call doctor. Mag Delay (Magnesium Chloride) 64 Mg Tablet.er 64 Mg PO BID Levemir Flextouch (Insulin Detemir) 100 Unit/1 Ml Insuln.pen 50 Unit SQ BID NEW MEDICATION, instead of Lantus with breakfast & @ bedtime Reported Amlodipine Besylate 5 Mg Tablet 5 Mg PO DAILY LAST DOSE GIVEN: DATE: 10/20 TIME: AM NEXT DOSE DUE: DATE: 10/21 TIME: AM Nortriptyline Hcl 50 Mg Capsule 50 Mg PO HS LAST DOSE GIVEN: DATE: 10/19 TIME: Bedtime NEXT DOSE DUE: DATE: 10/20 TIME: Bedtime Buspirone Hcl 10 Mg Tablet 10 Mg PO TID LAST DOSE GIVEN: DATE: 10/20 TIME: AM NEXT DOSE DUE: DATE: 10/20 TIME: NOON Bupropion Hcl Sr (Bupropion Hcl) 150 Mg Tablet.er 150 Mg PO BIDW/ LAST DOSE GIVEN: DATE: 10/20 TIME: AM NEXT DOSE DUE: DATE: 10/20 TIME: Noon Lisinopril 5 Mg Tablet 1 Tab PO DAILY LAST DOSE GIVEN: DATE: 10/20 TIME: AM NEXT DOSE DUE: DATE: 10/21 TIME: AM Dexilant (Dexlansoprazole) 60 Mg Cap. 1 Cap PO DAILY Atorvastatin Calcium 10 Mg Tablet 10 Mg PO QHS LAST DOSE GIVEN: DATE: 10/19 TIME: Bedtime NEXT DOSE DUE: DATE: 10/20 TIME: Bedtime Mirtazapine 30 Mg Tablet 1 Tab PO QHS LAST DOSE GIVEN: DATE: 10/19 TIME: Bedtime NEXT DOSE DUE: DATE: 10/20 TIME: Bedtime Requip (Ropinirole Hcl) 1 Mg Tablet 1 Tab PO QHS LAST DOSE GIVEN: DATE: 10/19 TIME: Bedtime NEXT DOSE DUE: DATE: 10/20 TIME: Bedtime Novolog (Insulin Aspart) 100 Unit/1 Ml Vial 16 Unit SQ TIDAC Klonopin (Clonazepam) 0.5 Mg Tablet 1 Tab PO TID PRN PRN NEEDED every 8 hours, up to three times per day Aspir-Low (Aspirin) 81 Mg Tablet.dr 1 Tab PO DAILY LAST DOSE GIVEN: DATE: 10/20 TIME: AM NEXT DOSE DUE: DATE: 10/21 TIME: AM Fluticasone Propionate Nasal Jet (Fluticasone Propionate) 16 Gm Jet.susp 2 Spr NS DAILY LAST DOSE GIVEN: DATE: 10/20 TIME: AM NEXT DOSE DUE: DATE: 10/21 TIME: AM Tegretol Xr (Carbamazepine) 200 Mg Tab.er.12h 200 Mg PO HS LAST DOSE GIVEN: DATE: YESTERDAY TIME: AT BEDTIME NEXT DOSE DUE: DATE: TODAY TIME: AT BEDTIME Montelukast Sodium Tablet (Montelukast Sodium) 10 Mg Tablet 10 Mg PO DAILY LAST DOSE GIVEN: DATE: 10/20 TIME: AM NEXT DOSE DUE: DATE: 10/21 TIME: AM Colace (Docusate Sodium) 100 Mg Capsule 100 Mg PO BID PRN LAST DOSE GIVEN: DATE: TODAY TIME: AM NEXT DOSE DUE: DATE: TODAY TIME: PM IF NEEDED Cymbalta (Duloxetine Hcl) 60 Mg Capsule.dr 60 Mg PO DAILY LAST DOSE GIVEN: DATE: 10/20 TIME: AM NEXT DOSE DUE: DATE: 10/21 TIME: AM Zyrtec (Cetirizine Hcl) 10 Mg Tab.chew 10 Mg PO DAILY PRN LAST DOSE GIVEN: DATE: NOT USED ON THIS ADMISSION TIME: NEXT DOSE DUE: DATE: TODAY TIME: IF NEEDED Metformin Hcl 1,000 Mg Tablet 1,000 Mg PO BIDWMEALS LAST DOSE GIVEN: DATE: 10/20 TIME: WITH BREAKFAST NEXT DOSE DUE: DATE: 10/20 TIME: WITH DINNER Diagnosis: Problems: (1) Major depressive disorder, recurrent episode (2) Altered mental state CAROL MITCHELL MD Dec 06, 2016 18:04
[2016-12-06] MEDS ORDERED: DOCUSATE SODIUM 100 MG CAPSULE PO PRN (18:30)
[2016-12-06] MEDS ORDERED: clonazePAM 0.5 MG TABLET PO PRN (18:30)
[2016-12-06] MEDS ORDERED: B CO1TAB30 PO (18:45)
[2016-12-06] MEDS ORDERED: TOPI25TA52 PO (18:46)
[2016-12-06] MEDS ORDERED: NAPR500T3 PO (18:46)
[2016-12-06] MEDS ORDERED: AMLO5TAB2 PO (19:09)
[2016-12-06] MEDS ORDERED: INSU100V13 SQ (19:15)
[2016-12-06] MEDS ORDERED: CYAN100072 PO (19:15)
[2016-12-06] MEDS ORDERED: ASCO1TAB14 PO (19:15)
[2016-12-06] MEDS ORDERED: CHOL500016 PO (19:17)
[2016-12-06] MEDS ORDERED: MONT10TA6 PO (19:17)
[2016-12-06] MEDS ORDERED: DULO60CA6 PO (19:17)
[2016-12-06] MEDS ORDERED: OMEG1CAP6 PO (19:31)
[2016-12-06 19:33] VITALS: BP 106/65
[2016-12-06] MEDS ORDERED: ENOXAPARIN 40 MG/0.4 ML DISP.SYRIN. SQ SCH (20:00)
[2016-12-06 20:14] LABS: INFLUENZA A PATIENT NEGATIVE (NEGATIVE); INFLUENZA B PATIENT NEGATIVE (NEGATIVE)
[2016-12-06] MEDS ORDERED: NORTRIPTYLINE HCL 50 MG PO SCH ×2 (21:00)
[2016-12-06] MEDS ORDERED: NON FORMULARY ITEM (Magnesium Chloride (Mag Delay) 64 MG) PO SCH (21:00)
[2016-12-06] MEDS ORDERED: INSULIN ASPART 300 UNITS/3 ML INSULN.PEN SQ SCH (21:00)
[2016-12-06] MEDS: IV NORMAL SALINE 1,000ML 1,000 ML IV SCH ×3 (21:00→22:06)
[2016-12-06] MEDS ORDERED: MIRTAZAPINE 30 MG TABLET PO SCH (21:00)
[2016-12-06] MEDS ORDERED: busPIRone 10 MG TABLET. PO SCH (21:00)
[2016-12-06] MEDS: ATORVASTATIN CALCIUM 10 MG TABLET. PO SCH (21:00)
[2016-12-06] MEDS: MIRTAZAPINE 30 MG TABLET PO SCH (21:00)
[2016-12-06] MEDS ORDERED: INSULIN DETEMIR 300 UNITS/3 ML INSULN.PEN. SQ SCH (21:00)
[2016-12-06] MEDS: TOPIRAMATE 25 MG TABLET. PO SCH (21:00)
[2016-12-06] MEDS: OMEGA-3 FATTY ACIDS/FISH OIL 1,000 MG CAPSULE. PO SCH (21:00)
[2016-12-06] MEDS ORDERED: guaiFENesin DM 200MG/20MG 10 ML SYRUP PO PRN (21:15)
[2016-12-06] MEDS: CEFEPIME HCL 2 GM in IV NORMAL SALINE 100ML 100 ML IV SCH (21:28)
[2016-12-06 21:33] LABS: % EOS 3 % (0-5); % LYMPHS 38 % (24-48); % MONOS 5 % (0-10); % SEGS 54 % (35-66)
[2016-12-06 21:34] LABS: BURR CELLS FEW; PLT ESTIMATE INCREASED (ADEQUATE)
[2016-12-06] MEDS: rOPINIRole 1 MG TABLET. PO SCH (22:00)
[2016-12-06] MEDS: INSULIN DETEMIR 300 UNITS/3 ML INSULN.PEN. SQ SCH (22:00)
[2016-12-06] MEDS: MONTELUKAST 10 MG TABLET. PO SCH (22:00)
[2016-12-06] MEDS: carBAMazepine XR 200 MG TAB.ER.12H PO SCH (22:02)
[2016-12-06] MEDS: ENOXAPARIN 40 MG/0.4 ML DISP.SYRIN. SQ SCH (22:06)
[2016-12-06 22:41] VITALS: BP 100/51
[2016-12-06 23:03] LABS: BILIRUBIN,URINE NEG (NEG); CLARITY,URINE CLEAR; COLOR,URINE YELLOW; GLUCOSE,URINE 500 mg/dL (NEG)
[2016-12-06 23:04] LABS: BACTERIA,URINE FEW /HPF (0-FEW); NITRITE,URINE NEG (NEG); RBC,URINE OCC /HPF (0-2); SQUAMOUS EPITHELIAL CELL,UR FEW /LPF; UROBILINOGEN,URINE 0.2 mg/dL (0.2 mg/dL)
[2016-12-07] MEDS: IV NORMAL SALINE 1,000ML 1,000 ML IV SCH ×4 (00:34→17:31)
[2016-12-07] MEDS: ACETAMINOPHEN 325 MG TABLET PO PRN ×2 (04:50→15:34)
[2016-12-07 05:00] VITALS: BP 128/76
[2016-12-07] MEDS: IPRATRPIUM/ALBUTEROL 0.5/2.5MG 3 ML NEBU. NEB SCH ×4 (05:38→20:44)
[2016-12-07 06:04] LABS: BASO % 0 % (0-3); EOS # 0.4 x10^3/uL (0.0-0.7); EOS % 3 % (0-3); HEMATOCRIT 31.5 % (36.0-47.0); HEMOGLOBIN 10.2 g/dL (12.0-15.5); LYMPH # 8.4 x10^3/uL (1.0-4.8); LYMPH % 46 % (24-48); MEAN CORPUSCULAR HEMOGLOBIN 30 pg (25-35); MEAN CORPUSCULAR HGB CONC 32 g/dL (31-37); MEAN CORPUSCULAR VOLUME 94 fL (79-100); MONO # 1.4 x10^3/uL (0.0-1.1); MONO % 8 % (0-9); NEUT % 44 % (31-73); PLATELET COUNT 351 x10^3/uL (140-400); RED BLOOD COUNT 3.37 x10^6/uL (3.50-5.40); RED CELL DISTRIBUTION WIDTH 13.6 % (11.5-14.5); WHITE BLOOD COUNT 18.3 x10^3/uL (4.0-11.0)
[2016-12-07 06:10] LABS: CALCIUM 7.4 mg/dL (8.5-10.1); CREATININE 1.3 mg/dL (0.6-1.0); GFR 40.4; POTASSIUM 4.3 mmol/L (3.5-5.1)
--- NOTE | 2016-12-07 07:27 | CONS ---
DATE OF CONSULTATION: 12/06/2016 PSYCHIATRIC CONSULTATION This note covers elements not covered in my initial note of 12/06/2016. The patient was seen individually the evening of 12/06/2016. I have discussed with nursing staff, reviewed the chart. IDENTIFYING DATA: The patient is a 71-year-old female, referred by Dr. Moreland on account of worsening symptoms of depression and the patient making statements, "I just want to feel better." Reportedly, the patient has been "emotionally unstable, not eating, no desire to get out of bed, ____ motivated, depressed, withdrawn. CHIEF COMPLAINT: "I have had a lot of stress. My has bipolar disorder and he has been more depressed lately. He goes for treatment at the [facility]. My physical health is deteriorating. I am not sleeping well. I have no appetite, I feel very depressed. I have not been drinking. I used to have an alcohol problem, but none for 37 years." HISTORY OF PRESENT ILLNESS: The patient has a history of major depressive disorder. She has been treated at the [facility] with shahnaz Frost and Ruben is doing the psychotropic medication management. The patient has had increased psychosocial stresses recently. She admits to feeling hopeless, helpless, worthless. She denies active suicidal ideation. She feels she is getting more forgetful. She still drives to [place] and states she has had no issues with this. No clear history of bipolar disorder. PAST PSYCHIATRIC HISTORY: As above. Past history of alcohol abuse, dependence none for 37 years. PAST MEDICAL HISTORY: Hyperlipidemia, hypertension, diabetes mellitus, UTI, pneumonia. ALLERGIES: GRAPE FRUIT, HYDROMORPHONE, METOCLOPRAMIDE, MORPHINE, PHENYTOIN, RESTORIL, TRAZODONE. CURRENT PSYCHOTROPICS: BuSpar 10 mg daily, Tegretol XR 200 mg at bedtime, Klonopin 0.5 mg t.i.d. p.r.n., Cymbalta 60 mg a day, Remeron 15 mg at bedtime, Topamax 25 mg b.i.d. FAMILY HISTORY: Noncontributory. CODE STATUS: Full code. SOCIAL HISTORY: The patient lives at home with her . Her receives psychiatric treatment at the [facility] for bipolar disorder, has been more depressed lately suicidal, this has been stressful for the patient. MENTAL STATUS EXAMINATION: The patient was seen individually. She is lying in bed. She is reasonably oriented, knew it was 12/2016, able to do one step on serial 7s, spelled word world, forward no error, backward 2 errors. Intellect average, Insight good. Judgment intact. No active suicidal ideation. Attention span short. Language function intact. LABORATORY DATA: Reviewed. IMPRESSION: Major depressive disorder, recurrent; moderate anxiety disorder, unspecified. Rest as above. PLAN: Continue Cymbalta 60 mg a day, Klonopin p.r.n., Tegretol XR 200 mg at bedtime. We will go ahead and stop the BuSpar and augment the Cymbalta with Abilify 5 mg a day. Continue Remeron 15 mg at bedtime. Add trazodone 50 mg at bedtime p.r.n., may repeat x 1 for insomnia. Make further adjustments as clinically indicated. Discussed all of this with the patient and received informed consent. Dr. Moreland, thank you for the opportunity to participate in your patient's care. We will follow with you. CAROL MITCHELL MD DR: LALITHA/luis angel JOB#: [id number] / [id number]
[2016-12-07] MEDS ORDERED: BUPROPION HCL 150 MG PO SCH (08:00)
[2016-12-07] MEDS: INSULIN ASPART 300 UNITS/3 ML INSULN.PEN SQ SCH ×3 (08:31→16:37)
[2016-12-07] MEDS: FLUTICASONE 50MCG/NASAL SPRAY 16GM BOTTLE. NS SCH (08:34)
[2016-12-07] MEDS: NON FORMULARY ITEM (Dexlansoprazole (Dexilant) 1 CAP) PO SCH (08:36)
[2016-12-07] MEDS: ASPIRIN ENTERIC COATED 81 MG TABLET.DR. PO SCH (08:38)
[2016-12-07] MEDS: DULoxetine HCL 60 MG CAPSULE.DR PO SCH (08:39)
[2016-12-07] MEDS: OMEGA-3 FATTY ACIDS/FISH OIL 1,000 MG CAPSULE. PO SCH ×3 (08:40→21:38)
[2016-12-07] MEDS: amLODIPine BESYLATE 5 MG TABLET PO SCH (08:46)
[2016-12-07] MEDS: LISINOPRIL 5 MG TABLET. PO SCH (08:47)
[2016-12-07] MEDS: TOPIRAMATE 25 MG TABLET. PO SCH ×2 (08:47→21:38)
[2016-12-07] MEDS: CYANOCOBALAMIN (VITAMIN B-12) 1,000 MCG TABLET. PO SCH (08:48)
[2016-12-07] MEDS ORDERED: CETIRIZINE HCL 10 MG TABLET PO PRN (09:00)
[2016-12-07] MEDS ORDERED: MONTELUKAST 10 MG TABLET. PO SCH (09:00)
[2016-12-07] MEDS ORDERED: amLODIPine BESYLATE 5 MG TABLET PO SCH (09:00)
[2016-12-07] MEDS ORDERED: PNEUMOC CONJ VACC 23-VALENT 0.5 ML VIAL. VAX IM ONE (09:00)
[2016-12-07] MEDS ORDERED: VITAMIN E PO SCH (09:00)
[2016-12-07] MEDS ORDERED: busPIRone 10 MG TABLET. PO SCH (09:00)
[2016-12-07] MEDS ORDERED: BIOTIN PO SCH (09:00)
[2016-12-07] MEDS ORDERED: NAPROXEN 500 MG TABLET PO SCH (09:00)
[2016-12-07] MEDS ORDERED: [UNRECOGNIZED DRUG - OTHER] PO SCH (09:00)
[2016-12-07] MEDS ORDERED: B COMPLEX WITH VITAMIN C PO SCH (09:00)
[2016-12-07] MEDS ORDERED: ARIPiprazole 5 MG TABLET PO SCH (09:00)
[2016-12-07] MEDS ORDERED: ASCORBIC ACID PO SCH (09:00)
[2016-12-07] MEDS ORDERED: CHOLECALCIFEROL PO SCH (09:00)
[2016-12-07] MEDS: NAPROXEN 500 MG TABLET PO SCH ×2 (09:29→21:39)
[2016-12-07] MEDS: INSULIN DETEMIR 300 UNITS/3 ML INSULN.PEN. SQ SCH ×2 (09:31→21:57)
--- NOTE | 2016-12-07 09:33 | RAD ---
CT of the chest without contrast, 12/07/2016: History: Persistent cough, possible pneumonia Noncontrast scans were obtained as requested. Comparison is made to a study from 10/17/2016. There is mild calcific plaquing of the thoracic aorta without evidence of aneurysm. Extensive coronary artery calcifications are present. The heart is not enlarged. Small mediastinal lymph nodes are present without evidence of pathologic enlargement. There are mild streaky bibasilar pulmonary opacities similar to those seen on the previous exam. The findings suggest scarring and/or atelectasis. Respiratory motion artifacts result in some blurring of the basilar pulmonary markings. No dense pulmonary consolidation is seen. There is no evidence of pleural fluid. A spinal stimulator lead extends into the posterior aspect of the lower thoracic spinal canal. There are moderate hypertrophic degenerative changes throughout the thoracic spine. IMPRESSION: 1. Moderate bibasilar linear opacities similar to those seen on 10/17/2016, compatible with scarring and/or chronic atelectasis. 2. Extensive coronary artery calcifications. PQRS Compliance Statement: One or more of the following individualized dose reduction techniques were utilized for this examination: 1. Automated exposure control 2. Adjustment of the mA and/or kV according to patient size 3. Use of iterative reconstruction technique
[2016-12-07 11:27] VITALS: BP 139/77
[2016-12-07] MEDS ORDERED: ZOLPIDEM 5 MG TABLET. PO PRN (12:00)
--- NOTE | 2016-12-07 14:49 | RAD ---
CT of the abdomen without contrast 12/07/2016 Indication: Abdominal pain. History of hernia. Comparison study: CT of the abdomen and pelvis with oral contrast December 20, 2014 Technique: Multidetector CT imaging of the abdomen and pelvis was performed without the administration of IV or oral contrast Findings: Limited visualization of the lung bases demonstrates no gross abnormality. Prior cholecystectomy is noted. The liver and adrenal glands have an unremarkable noncontrast enhanced appearance. Minimal nonspecific perinephric stranding is noted bilaterally. The kidneys otherwise have a grossly unremarkable noncontrast enhanced appearance. Pancreas is atrophic in appearance otherwise grossly unremarkable. The spleen is not visualized. Correlate with history of splenectomy. There is a ventral hernia, just to the left the abdominal midline in the upper abdomen. Hernia defect measures approximately 9 cm longitudinally by approximately 6 cm AP. The hernia sac appears smaller than comparison study. Hernia contains both a nondilated loop of transverse colon, and small bowel loops. Evidence of prior hernia repair noted. The pelvis was not included on this study. Visualized bowel demonstrates no evidence of obstruction or inflammatory change. An acute osseous abnormality is not identified. Dorsal column stimulator is partially visualized. Impression: Ventral hernia in the left upper abdomen as described. PQRS Compliance Statement: One or more of the following individualized dose reduction techniques were utilized for this examination: 1. Automated exposure control 2. Adjustment of the mA and/or kV according to patient size 3. Use of iterative reconstruction technique
[2016-12-07 15:17] VITALS: BP 136/66
--- NOTE | 2016-12-07 18:59 | PDOC ---
Exam [facility] Exam: [facility] Note: Please also refer to the separate dictated note~for this date of service dictated separately.~Patient seen individually. Discussed the patient with Nursing staff reviewed the chart.~Reviewed interim history and current functioning. Reviewed vital signs,~Labs/ Radiology~and current medications noted below. Continue current treatment with the changes noted in the dictated addendum note Assessment: Vital Signs: Vital Signs Date Time Temp Pulse Resp B/P (MAP) Pulse Ox O2 Delivery O2 Flow Rate FiO2 12/07/16 15:40 96 Room Air 12/07/16 15:17 98.3 91 20 136/66 (89) 12/07/16 05:40 2.0 I&O Intake and Output 12/08/16 07:00 Intake Total 2017 ml Output Total 800 ml Balance 1217 ml Intake Oral 750 ml IV Total 1267 ml Output Urine Total 800 ml # Bowel Movements 1 Labs: Laboratory Tests Test 12/06/16 19:30 12/06/16 20:00 12/06/16 20:11 12/06/16 21:40 Influenza Type A (Rapid) Negative (NEGATIVE) Influenza Type B (Rapid) Negative (NEGATIVE) Lactic Acid Level 4.0 mmol/L (0.4-2.0) *H Glucose (Fingerstick) 378 mg/dL (70-99) H Urine Collection Type Unknown Urine Color Yellow Urine Clarity Clear Urine pH 5.0 Urine Specific [place] 1.020 Urine Protein Neg (NEG-TRACE) Urine Glucose (UA) 500 mg/dL (NEG) Urine Ketones (Stick) Neg mg/dL (NEG) Urine Blood Neg (NEG) Urine Nitrite Neg (NEG) Urine Bilirubin Neg (NEG) Urine Urobilinogen Dipstick 0.2 mg/dL (0.2 mg/dL) Urine Leukocyte Esterase Neg (NEG) Urine RBC Occ /HPF (0-2) Urine WBC 1-4 /HPF (0-4) Urine Squamous Epithelial Cells Few /LPF Urine Bacteria Few /HPF (0-FEW) Test 12/07/16 00:50 12/07/16 05:34 12/07/16 07:49 12/07/16 11:32 Lactic Acid Level 2.0 mmol/L (0.4-2.0) White Blood Count 18.3 x10^3/uL (4.0-11.0) H Red Blood Count 3.37 x10^6/uL (3.50-5.40) L Hemoglobin 10.2 g/dL (12.0-15.5) L Hematocrit 31.5 % (36.0-47.0) L Mean Corpuscular Volume 94 fL (79-100) Mean Corpuscular Hemoglobin 30 pg (25-35) Mean Corpuscular Hemoglobin Concent 32 g/dL (31-37) Red Cell Distribution Width 13.6 % (11.5-14.5) Platelet Count 351 x10^3/uL (140-400) Neutrophils (%) (Auto) 44 % (31-73) Lymphocytes (%) (Auto) 46 % (24-48) Monocytes (%) (Auto) 8 % (0-9) Eosinophils (%) (Auto) 3 % (0-3) Basophils (%) (Auto) 0 % (0-3) Neutrophils # (Auto) 8.0 x10^3uL (1.8-7.7) H Lymphocytes # (Auto) 8.4 x10^3/uL (1.0-4.8) H Monocytes # (Auto) 1.4 x10^3/uL (0.0-1.1) H Eosinophils # (Auto) 0.4 x10^3/uL (0.0-0.7) Basophils # (Auto) 0.0 x10^3/uL (0.0-0.2) Sodium Level 139 mmol/L (136-145) Potassium Level 4.3 mmol/L (3.5-5.1) Chloride Level 109 mmol/L (98-107) H Carbon Dioxide Level 21 mmol/L (21-32) Anion Gap 9 (6-14) Blood Urea Nitrogen 23 mg/dL (7-20) H Creatinine 1.3 mg/dL (0.6-1.0) H Estimated GFR (Cockcroft-Gault) 40.4 Glucose Level 192 mg/dL (70-99) H Calcium Level 7.4 mg/dL (8.5-10.1) #L Glucose (Fingerstick) 202 mg/dL (70-99) H 292 mg/dL (70-99) H Test 12/07/16 16:34 Glucose (Fingerstick) 121 mg/dL (70-99) H Current Medications: Meds: Current Medications Ceftriaxone Sodium 1 gm/ Sodium Chloride 50 ml @ 100 mls/hr Q24H IV Last administered on 12/06/16 16:36; Start 12/06/16 at 16:00; Stop 12/06/16 at 20:55; Status DC Sodium Chloride 1,000 ml @ 75 mls/hr [id number] IV Last administered on 12/06/16 16:00; Start 12/06/16 at 16:00; Stop 12/06/16 at 21:44; Status DC Albuterol/ Ipratropium (Duoneb) 3 ml RTQID NEB Last administered on 12/07/16 15 :40; Start 12/06/16 at 16:00 Levofloxacin/ Dextrose 150 ml @ 150 mls/hr QODAY IV Last administered on 19:19; Start 12/06/16 at 18:45 Amlodipine Besylate (Norvasc) 5 mg DAILY PO Last administered on 12/07/16 08:46 ; Start 12/07/16 at 09:00 Aspirin (Aspirin Enteric Coated) 81 mg DAILY PO Last administered on 12/07/16 08:38; Start 12/07/16 at 09:00 Atorvastatin Calcium (Lipitor) 10 mg QHS PO Last administered on 12/06/16 21:00 ; Start 12/06/16 at 21:00 Buspirone HCl (Buspar) 10 mg TID PO ; Start 12/06/16 at 21:00; Stop 12/06/16 at 21 :00; Status DC Carbamazepine (TEGretol XR) 200 mg HS PO Last administered on 12/06/16 22:02; Start 12/06/16 at 21:00 Clonazepam (KlonoPIN) 0.5 mg PRN TID PRN PO ANXIETY Last administered on 22:11; Start 12/06/16 at 18:30 Docusate Sodium (Colace) 100 mg PRN BID PRN PO CONSTIPATION; Start 12/06/16 at 18:30 Duloxetine HCl (Cymbalta) 60 mg DAILY PO Last administered on 12/07/16 08:39; Start 12/07/16 at 09:00 Fluticasone Propionate (Flonase) 2 spray DAILY NS Last administered on 08:34; Start 12/07/16 at 09:00 Insulin Aspart (NovoLOG) 100 units QIDACHS SQ ; Start 12/06/16 at 21:00; Stop 12/06/16 at 21:00; Status DC Insulin Detemir (Levemir) 50 units BID SQ ; Start 12/06/16 at 21:00; Stop at 21:00; Status DC Lisinopril (Prinivil) 5 mg DAILY PO Last administered on 12/07/16 08:47; Start 12/07/16 at 09:00 Mirtazapine (Remeron) 30 mg QHS PO ; Start 12/06/16 at 21:00; Stop 12/06/16 at 21: 00; Status DC Montelukast Sodium (Singulair) 10 mg DAILY PO ; Start 12/07/16 at 09:00; Stop 12/07/16 at 09:00; Status DC Ropinirole HCl (Requip) 1 mg QHS PO Last administered on 12/06/16 22:00; Start 12/06/16 at 21:00 Non-Formulary Medication 150 mg BIDWBKFT/CARMELA PO ; Start 12/07/16 at 08:00; Stop 12/07/16 at 08:00; Status DC Cetirizine HCl (ZyrTEC) 10 mg PRN DAILY PRN PO ALLERGIES; Start 12/07/16 at 09: 00 Non-Formulary Medication 1 cap DAILY PO Last administered on 12/07/16 08:36; Start 12/07/16 at 09:00 Guaifenesin (Robitussin Dm) 10 ml PRN Q6HRS PRN PO COUGH; Start 12/06/16 at 21: 15 Insulin Aspart (NovoLOG) 16 units TIDAC SQ Last administered on 12/07/16 11:57 ; Start 12/07/16 at 07:30 Non-Formulary Medication 64 mg BID PO ; Start 12/06/16 at 21:00; Stop 12/06/16 at 21:00; Status DC Non-Formulary Medication 1,000 mg BIDWMEALS PO Last administered on 12/07/16 17 :09; Start 12/07/16 at 08:00 Non-Formulary Medication 50 mg HS PO ; Start 12/06/16 at 21:00; Stop 12/06/16 at 21:00; Status DC Pneumococcal Polyvalent Vaccine (Pneumovax 23) 0.5 ml ONCE ONCE VAX IM Last administered on 12/07/16 08:55; Start 12/07/16 at 09:00; Stop 12/07/16 at 09:01; Status DC Amlodipine Besylate (Norvasc) 5 mg DAILY PO ; Start 12/07/16 at 09:00; Stop at 09:00; Status DC Cyanocobalamin (Vitamin B-12) 1,000 mcg DAILY PO Last administered on 12/07/16 08:48; Start 12/07/16 at 09:00 Montelukast Sodium (Singulair) 10 mg HS PO Last administered on 12/06/16 22:00 ; Start 12/06/16 at 21:00 Topiramate (Topamax) 25 mg BID PO Last administered on 12/07/16 08:47; Start at 21:00 Non-Formulary Medication 1 each DAILY PO ; Start 12/07/16 at 09:00; Stop 12/07/16 at 09:00; Status DC Non-Formulary Medication 1 each DAILY PO ; Start 12/07/16 at 09:00; Stop 12/07/16 at 09:00; Status DC Non-Formulary Medication 2 tab DAILY PO ; Start 12/07/16 at 09:00; Stop 12/07/16 at 09:00; Status DC Insulin Detemir (Levemir) 80 units BID SQ ; Start 12/07/16 at 21:00; Stop at 21:00; Status DC Fish Oil (Fish Oil) 1,000 mg TID PO Last administered on 12/07/16 14:41; Start 12/06/16 at 21:00 Buspirone HCl (Buspar) 10 mg DAILY PO ; Start 12/07/16 at 09:00; Stop 12/07/16 at 09:00; Status DC Mirtazapine (Remeron) 15 mg QHS PO ; Start 12/06/16 at 21:00 Non-Formulary Medication 50 mg TID PO ; Start 12/06/16 at 21:00; Stop 12/06/16 at 21:08; Status DC Enoxaparin Sodium (Lovenox) 40 mg Q24H SQ ; Start 12/06/16 at 20:00; Stop at 20:00; Status DC Enoxaparin Sodium (Lovenox) 40 mg Q24H SQ Last administered on 12/06/16 22:06; Start 12/06/16 at 21:00 Sodium Chloride 1,000 ml @ 125 mls/hr Q8H IV Last administered on 12/07/16 17: 31; Start 12/06/16 at 21:00 Sodium Chloride 1,000 ml @ 2,190 mls/hr Q28M IV Last administered on 12/07/16 00:34; Start 12/06/16 at 21:00; Stop 12/06/16 at 22:00; Status DC Cefepime HCl 2 gm/ Sodium Chloride 100 ml @ 200 mls/hr Q24H IV Last administered on 12/06/16 21:28; Start 12/06/16 at 21:30 Insulin Detemir (Levemir) 80 units BID SQ Last administered on 12/07/16 09:31; Start 12/06/16 at 21:45 Aripiprazole (Abilify) 5 mg DAILY PO Last administered on 12/07/16 08:37; Start 12/07/16 at 09:00 Acetaminophen (Tylenol) 650 mg PRN Q6HRS PRN PO MILD PAIN / TEMP Last administered on 12/07/16 15:34; Start 12/07/16 at 04:45 Naproxen (Naprosyn) 500 mg BID PO ; Start 12/07/16 at 09:00; Stop 12/07/16 at 09: 00; Status DC Naproxen (Naprosyn) 500 mg BID PO Last administered on 12/07/16 09:29; Start at 09:00 Zolpidem Tartrate (Ambien) 5 mg PRN QHS PRN PO INSOMNIA; Start 12/07/16 at 12:00 ; Stop 12/07/16 at 16:26; Status DC Active Scripts Active Reported Fish Oil 1,000 Mg Capsule ([place]-3 Fatty Acids/Fish Oil) 1 Each Capsule 1 Each PO TID Vitamin D3 (Cholecalciferol (Vitamin D3)) 5,000 Unit Tablet 2 Tab PO DAILY Singulair Tablet (Montelukast Sodium) 10 Mg Tablet 10 Mg PO HS Levemir (Insulin Detemir) 100 Unit/1 Ml Vial 80 Unit SQ BID Hair Skin Nails-Biotin Gummies (Ascorbic Acid/Vitamin E/Biotin) 1 Each Tab.chew 1 Each PO DAILY B-12 (Cyanocobalamin (Vitamin B-12)) 1,000 Mcg Tablet 1,000 Mcg PO DAILY Amlodipine Besylate 5 Mg Tablet 1 Tab PO DAILY Naproxen 500 Mg Tablet 1 Tab PO BID Topamax (Topiramate) 25 Mg Tablet 1 Tab PO BID B-Complex with C (B Complex with Vitamin C) 1 Each Tablet 1 Each PO DAILY Nortriptyline Hcl 50 Mg Capsule 50 Mg PO TID LAST DOSE GIVEN: DATE: 10/19 TIME: Bedtime NEXT DOSE DUE: DATE: 10/20 TIME: Bedtime Buspirone Hcl 10 Mg Tablet 10 Mg PO DAILY LAST DOSE GIVEN: DATE: 10/20 TIME: AM NEXT DOSE DUE: DATE: 10/20 TIME: NOON Lisinopril 5 Mg Tablet 1 Tab PO DAILY LAST DOSE GIVEN: DATE: 10/20 TIME: AM NEXT DOSE DUE: DATE: 10/21 TIME: AM Dexilant (Dexlansoprazole) 60 Mg Cap. 1 Cap PO DAILY Atorvastatin Calcium 10 Mg Tablet 10 Mg PO QHS LAST DOSE GIVEN: DATE: 10/19 TIME: Bedtime NEXT DOSE DUE: DATE: 10/20 TIME: Bedtime Mirtazapine 30 Mg Tablet 0.5 Tab PO QHS LAST DOSE GIVEN: DATE: 10/19 TIME: Bedtime NEXT DOSE DUE: DATE: 10/20 TIME: Bedtime Requip (Ropinirole Hcl) 1 Mg Tablet 1 Tab PO QHS LAST DOSE GIVEN: DATE: 10/19 TIME: Bedtime NEXT DOSE DUE: DATE: 10/20 TIME: Bedtime Novolog (Insulin Aspart) 100 Unit/1 Ml Vial 16 Unit SQ TIDAC Klonopin (Clonazepam) 0.5 Mg Tablet 1 Tab PO TID PRN PRN NEEDED every 8 hours, up to three times per day Aspir-Low (Aspirin) 81 Mg Tablet. 1 Tab PO DAILY LAST DOSE GIVEN: DATE: 10/20 TIME: AM NEXT DOSE DUE: DATE: 10/21 TIME: AM Fluticasone Propionate Nasal [place] (Fluticasone Propionate) 16 Gm [place].susp 2 Spr NS DAILY LAST DOSE GIVEN: DATE: 10/20 TIME: AM NEXT DOSE DUE: DATE: 10/21 TIME: AM Tegretol Xr (Carbamazepine) 200 Mg Tab.er.12h 200 Mg PO HS LAST DOSE GIVEN: DATE: YESTERDAY TIME: AT BEDTIME NEXT DOSE DUE: DATE: TODAY TIME: AT BEDTIME Colace (Docusate Sodium) 100 Mg Capsule 100 Mg PO BID PRN LAST DOSE GIVEN: DATE: TODAY TIME: AM NEXT DOSE DUE: DATE: TODAY TIME: PM IF NEEDED Cymbalta (Duloxetine Hcl) 60 Mg Capsule.dr 60 Mg PO DAILY LAST DOSE GIVEN: DATE: 10/20 TIME: AM NEXT DOSE DUE: DATE: 10/21 TIME: AM Metformin Hcl 1,000 Mg Tablet 1,000 Mg PO BIDWMEALS LAST DOSE GIVEN: DATE: 10/20 TIME: WITH BREAKFAST NEXT DOSE DUE: DATE: 10/20 TIME: WITH DINNER Diagnosis: Problems: (1) Major depressive disorder, recurrent episode CAROL MITCHELL MD Dec 07, 2016 18:59
[2016-12-07 19:11] VITALS: BP 126/67
--- NOTE | 2016-12-07 19:47 | PDOC ---
Exam Armani Demential Exam: Armani Note: Please also refer to the separate dictated note~for this date of service dictated separately.~Patient seen individually. Discussed the patient with Nursing staff reviewed the chart.~Reviewed interim history and current functioning. Reviewed vital signs,~Labs/ Radiology~and current medications noted below. Continue current treatment with the changes noted in the dictated addendum note Assessment: Vital Signs: Vital Signs Date Time Temp Pulse Resp B/P (MAP) Pulse Ox O2 Delivery O2 Flow Rate FiO2 12/07/16 19:11 97.7 86 18 126/67 (86) 97 Nasal Cannula 2.0 I&O Intake and Output 12/08/16 07:00 Intake Total 2017 ml Output Total 800 ml Balance 1217 ml Intake Oral 750 ml IV Total 1267 ml Output Urine Total 800 ml # Bowel Movements 1 Labs: Laboratory Tests Test 12/06/16 20:00 12/06/16 20:11 12/06/16 21:40 12/07/16 00:50 Lactic Acid Level 4.0 mmol/L (0.4-2.0) *H 2.0 mmol/L (0.4-2.0) Glucose (Fingerstick) 378 mg/dL (70-99) H Urine Collection Type Unknown Urine Color Yellow Urine Clarity Clear Urine pH 5.0 Urine Specific Brandt 1.020 Urine Protein Neg (NEG-TRACE) Urine Glucose (UA) 500 mg/dL (NEG) Urine Ketones (Stick) Neg mg/dL (NEG) Urine Blood Neg (NEG) Urine Nitrite Neg (NEG) Urine Bilirubin Neg (NEG) Urine Urobilinogen Dipstick 0.2 mg/dL (0.2 mg/dL) Urine Leukocyte Esterase Neg (NEG) Urine RBC Occ /HPF (0-2) Urine WBC 1-4 /HPF (0-4) Urine Squamous Epithelial Cells Few /LPF Urine Bacteria Few /HPF (0-FEW) Test 12/07/16 05:34 12/07/16 07:49 12/07/16 11:32 12/07/16 16:34 White Blood Count 18.3 x10^3/uL (4.0-11.0) H Red Blood Count 3.37 x10^6/uL (3.50-5.40) L Hemoglobin 10.2 g/dL (12.0-15.5) L Hematocrit 31.5 % (36.0-47.0) L Mean Corpuscular Volume 94 fL (79-100) Mean Corpuscular Hemoglobin 30 pg (25-35) Mean Corpuscular Hemoglobin Concent 32 g/dL (31-37) Red Cell Distribution Width 13.6 % (11.5-14.5) Platelet Count 351 x10^3/uL (140-400) Neutrophils (%) (Auto) 44 % (31-73) Lymphocytes (%) (Auto) 46 % (24-48) Monocytes (%) (Auto) 8 % (0-9) Eosinophils (%) (Auto) 3 % (0-3) Basophils (%) (Auto) 0 % (0-3) Neutrophils # (Auto) 8.0 x10^3uL (1.8-7.7) H Lymphocytes # (Auto) 8.4 x10^3/uL (1.0-4.8) H Monocytes # (Auto) 1.4 x10^3/uL (0.0-1.1) H Eosinophils # (Auto) 0.4 x10^3/uL (0.0-0.7) Basophils # (Auto) 0.0 x10^3/uL (0.0-0.2) Sodium Level 139 mmol/L (136-145) Potassium Level 4.3 mmol/L (3.5-5.1) Chloride Level 109 mmol/L (98-107) H Carbon Dioxide Level 21 mmol/L (21-32) Anion Gap 9 (6-14) Blood Urea Nitrogen 23 mg/dL (7-20) H Creatinine 1.3 mg/dL (0.6-1.0) H Estimated GFR (Cockcroft-Gault) 40.4 Glucose Level 192 mg/dL (70-99) H Calcium Level 7.4 mg/dL (8.5-10.1) #L Glucose (Fingerstick) 202 mg/dL (70-99) H 292 mg/dL (70-99) H 121 mg/dL (70-99) H Current Medications: Meds: Current Medications Ceftriaxone Sodium 1 gm/ Sodium Chloride 50 ml @ 100 mls/hr Q24H IV Last administered on 12/06/16t 16:36; Start 12/06/16 at 16:00; Stop 12/06/16 at 20:55; Status DC Sodium Chloride 1,000 ml @ 75 mls/hr [id number] IV Last administered on 12/06/16 16:00; Start 12/06/16 at 16:00; Stop 12/06/16 at 21:44; Status DC Albuterol/ Ipratropium (Duoneb) 3 ml RTQID NEB Last administered on 12/07/16 15 :40; Start 12/06/16 at 16:00 Levofloxacin/ Dextrose 150 ml @ 150 mls/hr QODAY IV Last administered on 19:19; Start 12/06/16 at 18:45 Amlodipine Besylate (Norvasc) 5 mg DAILY PO Last administered on 12/07/16 08:46 ; Start 12/07/16 at 09:00 Aspirin (Aspirin Enteric Coated) 81 mg DAILY PO Last administered on 12/07/16 08:38; Start 12/07/16 at 09:00 Atorvastatin Calcium (Lipitor) 10 mg QHS PO Last administered on 12/06/16 21:00 ; Start 12/06/16 at 21:00 Buspirone HCl (Buspar) 10 mg TID PO ; Start 12/06/16 at 21:00; Stop 12/06/16 at 21 :00; Status DC Carbamazepine (TEGretol XR) 200 mg HS PO Last administered on 12/06/16 22:02; Start 12/06/16 at 21:00 Clonazepam (KlonoPIN) 0.5 mg PRN TID PRN PO ANXIETY Last administered on 22:11; Start 12/06/16 at 18:30 Docusate Sodium (Colace) 100 mg PRN BID PRN PO CONSTIPATION; Start 12/06/16 at 18:30 Duloxetine HCl (Cymbalta) 60 mg DAILY PO Last administered on 12/07/16 08:39; Start 12/07/16 at 09:00 Fluticasone Propionate (Flonase) 2 spray DAILY NS Last administered on 08:34; Start 12/07/16 at 09:00 Insulin Aspart (NovoLOG) 100 units QIDACHS SQ ; Start 12/06/16 at 21:00; Stop 12/06/16 at 21:00; Status DC Insulin Detemir (Levemir) 50 units BID SQ ; Start 12/06/16 at 21:00; Stop at 21:00; Status DC Lisinopril (Prinivil) 5 mg DAILY PO Last administered on 12/07/16 08:47; Start 12/07/16 at 09:00 Mirtazapine (Remeron) 30 mg QHS PO ; Start 12/06/16 at 21:00; Stop 12/06/16 at 21: 00; Status DC Montelukast Sodium (Singulair) 10 mg DAILY PO ; Start 12/07/16 at 09:00; Stop 12/07/16 at 09:00; Status DC Ropinirole HCl (Requip) 1 mg QHS PO Last administered on 12/06/16 22:00; Start 12/06/16 at 21:00 Non-Formulary Medication 150 mg BIDWBKFT/CARMELA PO ; Start 12/07/16 at 08:00; Stop 12/07/16 at 08:00; Status DC Cetirizine HCl (ZyrTEC) 10 mg PRN DAILY PRN PO ALLERGIES; Start 12/07/16 at 09: 00 Non-Formulary Medication 1 cap DAILY PO Last administered on 12/07/16 08:36; Start 12/07/16 at 09:00 Guaifenesin (Robitussin Dm) 10 ml PRN Q6HRS PRN PO COUGH; Start 12/06/16 at 21: 15 Insulin Aspart (NovoLOG) 16 units TIDAC SQ Last administered on 12/07/16 11:57 ; Start 12/07/16 at 07:30 Non-Formulary Medication 64 mg BID PO ; Start 12/06/16 at 21:00; Stop 12/06/16 at 21:00; Status DC Non-Formulary Medication 1,000 mg BIDWMEALS PO Last administered on 12/07/16 17 :09; Start 12/07/16 at 08:00 Non-Formulary Medication 50 mg HS PO ; Start 12/06/16 at 21:00; Stop 12/06/16 at 21:00; Status DC Pneumococcal Polyvalent Vaccine (Pneumovax 23) 0.5 ml ONCE ONCE VAX IM Last administered on 12/07/16 08:55; Start 12/07/16 at 09:00; Stop 12/07/16 at 09:01; Status DC Amlodipine Besylate (Norvasc) 5 mg DAILY PO ; Start 12/07/16 at 09:00; Stop at 09:00; Status DC Cyanocobalamin (Vitamin B-12) 1,000 mcg DAILY PO Last administered on 12/07/16 08:48; Start 12/07/16 at 09:00 Montelukast Sodium (Singulair) 10 mg HS PO Last administered on 12/06/16 22:00 ; Start 12/06/16 at 21:00 Topiramate (Topamax) 25 mg BID PO Last administered on 12/07/16 08:47; Start at 21:00 Non-Formulary Medication 1 each DAILY PO ; Start 12/07/16 at 09:00; Stop 12/07/16 at 09:00; Status DC Non-Formulary Medication 1 each DAILY PO ; Start 12/07/16 at 09:00; Stop 12/07/16 at 09:00; Status DC Non-Formulary Medication 2 tab DAILY PO ; Start 12/07/16 at 09:00; Stop 12/07/16 at 09:00; Status DC Insulin Detemir (Levemir) 80 units BID SQ ; Start 12/07/16 at 21:00; Stop at 21:00; Status DC Fish Oil (Fish Oil) 1,000 mg TID PO Last administered on 12/07/16 14:41; Start 12/06/16 at 21:00 Buspirone HCl (Buspar) 10 mg DAILY PO ; Start 12/07/16 at 09:00; Stop 12/07/16 at 09:00; Status DC Mirtazapine (Remeron) 15 mg QHS PO ; Start 12/06/16 at 21:00 Non-Formulary Medication 50 mg TID PO ; Start 12/06/16 at 21:00; Stop 12/06/16 at 21:08; Status DC Enoxaparin Sodium (Lovenox) 40 mg Q24H SQ ; Start 12/06/16 at 20:00; Stop at 20:00; Status DC Enoxaparin Sodium (Lovenox) 40 mg Q24H SQ Last administered on 12/06/16 22:06; Start 12/06/16 at 21:00 Sodium Chloride 1,000 ml @ 125 mls/hr Q8H IV Last administered on 12/07/16 17: 31; Start 12/06/16 at 21:00 Sodium Chloride 1,000 ml @ 2,190 mls/hr Q28M IV Last administered on 12/07/16 00:34; Start 12/06/16 at 21:00; Stop 12/06/16 at 22:00; Status DC Cefepime HCl 2 gm/ Sodium Chloride 100 ml @ 200 mls/hr Q24H IV Last administered on 12/06/16 21:28; Start 12/06/16 at 21:30 Insulin Detemir (Levemir) 80 units BID SQ Last administered on 12/07/16 09:31; Start 12/06/16 at 21:45 Aripiprazole (Abilify) 5 mg DAILY PO Last administered on 12/07/16 08:37; Start 12/07/16 at 09:00; Stop 12/07/16 at 19:01; Status DC Acetaminophen (Tylenol) 650 mg PRN Q6HRS PRN PO MILD PAIN / TEMP Last administered on 12/07/16 15:34; Start 12/07/16 at 04:45 Naproxen (Naprosyn) 500 mg BID PO ; Start 12/07/16 at 09:00; Stop 12/07/16 at 09: 00; Status DC Naproxen (Naprosyn) 500 mg BID PO Last administered on 12/07/16 09:29; Start at 09:00 Zolpidem Tartrate (Ambien) 5 mg PRN QHS PRN PO INSOMNIA; Start 12/07/16 at 12:00 ; Stop 12/07/16 at 16:26; Status DC Aripiprazole (Abilify) 2.5 mg DAILY PO ; Start 12/08/16 at 09:00 Active Scripts Active Reported Fish Oil 1,000 Mg Capsule ([place]-3 Fatty Acids/Fish Oil) 1 Each Capsule 1 Each PO TID Vitamin D3 (Cholecalciferol (Vitamin D3)) 5,000 Unit Tablet 2 Tab PO DAILY Singulair Tablet (Montelukast Sodium) 10 Mg Tablet 10 Mg PO HS Levemir (Insulin Detemir) 100 Unit/1 Ml Vial 80 Unit SQ BID Hair Skin Nails-Biotin Gummies (Ascorbic Acid/Vitamin E/Biotin) 1 Each Tab.chew 1 Each PO DAILY B-12 (Cyanocobalamin (Vitamin B-12)) 1,000 Mcg Tablet 1,000 Mcg PO DAILY Amlodipine Besylate 5 Mg Tablet 1 Tab PO DAILY Naproxen 500 Mg Tablet 1 Tab PO BID Topamax (Topiramate) 25 Mg Tablet 1 Tab PO BID B-Complex with C (B Complex with Vitamin C) 1 Each Tablet 1 Each PO DAILY Nortriptyline Hcl 50 Mg Capsule 50 Mg PO TID LAST DOSE GIVEN: DATE: 10/19 TIME: Bedtime NEXT DOSE DUE: DATE: 10/20 TIME: Bedtime Buspirone Hcl 10 Mg Tablet 10 Mg PO DAILY LAST DOSE GIVEN: DATE: 10/20 TIME: AM NEXT DOSE DUE: DATE: 10/20 TIME: NOON Lisinopril 5 Mg Tablet 1 Tab PO DAILY LAST DOSE GIVEN: DATE: 10/20 TIME: AM NEXT DOSE DUE: DATE: 10/21 TIME: AM Dexilant (Dexlansoprazole) 60 Mg Cap. 1 Cap PO DAILY Atorvastatin Calcium 10 Mg Tablet 10 Mg PO QHS LAST DOSE GIVEN: DATE: 10/19 TIME: Bedtime NEXT DOSE DUE: DATE: 10/20 TIME: Bedtime Mirtazapine 30 Mg Tablet 0.5 Tab PO QHS LAST DOSE GIVEN: DATE: 10/19 TIME: Bedtime NEXT DOSE DUE: DATE: 10/20 TIME: Bedtime Requip (Ropinirole Hcl) 1 Mg Tablet 1 Tab PO QHS LAST DOSE GIVEN: DATE: 10/19 TIME: Bedtime NEXT DOSE DUE: DATE: 10/20 TIME: Bedtime Novolog (Insulin Aspart) 100 Unit/1 Ml Vial 16 Unit SQ TIDAC Klonopin (Clonazepam) 0.5 Mg Tablet 1 Tab PO TID PRN PRN NEEDED every 8 hours, up to three times per day Aspir-Low (Aspirin) 81 Mg Tablet.dr 1 Tab PO DAILY LAST DOSE GIVEN: DATE: 10/20 TIME: AM NEXT DOSE DUE: DATE: 10/21 TIME: AM Fluticasone Propionate Nasal [place] (Fluticasone Propionate) 16 Gm [place].susp 2 Spr NS DAILY LAST DOSE GIVEN: DATE: 10/20 TIME: AM NEXT DOSE DUE: DATE: 10/21 TIME: AM Tegretol Xr (Carbamazepine) 200 Mg Tab.er.12h 200 Mg PO HS LAST DOSE GIVEN: DATE: YESTERDAY TIME: AT BEDTIME NEXT DOSE DUE: DATE: TODAY TIME: AT BEDTIME Colace (Docusate Sodium) 100 Mg Capsule 100 Mg PO BID PRN LAST DOSE GIVEN: DATE: TIME: AM NEXT DOSE DUE: DATE: TODAY TIME: PM IF NEEDED Cymbalta (Duloxetine Hcl) 60 Mg Capsule.dr 60 Mg PO DAILY LAST DOSE GIVEN: DATE: 10/20 TIME: AM NEXT DOSE DUE: DATE: 10/21 TIME: AM Metformin Hcl 1,000 Mg Tablet 1,000 Mg PO BIDWMEALS LAST DOSE GIVEN: DATE: 10/20 TIME: WITH BREAKFAST NEXT DOSE DUE: DATE: 10/20 TIME: WITH DINNER Diagnosis: Problems: (1) Major depressive disorder, recurrent episode CAROL MITCHELL MD Dec 07, 2016 19:47
[2016-12-07] MEDS ORDERED: INSULIN DETEMIR 300 UNITS/3 ML INSULN.PEN. SQ SCH (21:00)
[2016-12-07] MEDS: CEFEPIME HCL 2 GM in IV NORMAL SALINE 100ML 100 ML IV SCH (21:28)
[2016-12-07] MEDS: rOPINIRole 1 MG TABLET. PO SCH (21:32)
[2016-12-07] MEDS: carBAMazepine XR 200 MG TAB.ER.12H PO SCH (21:32)
[2016-12-07] MEDS: MONTELUKAST 10 MG TABLET. PO SCH (21:32)
[2016-12-07] MEDS: ATORVASTATIN CALCIUM 10 MG TABLET. PO SCH (21:33)
[2016-12-07] MEDS: MIRTAZAPINE 30 MG TABLET PO SCH (21:38)
[2016-12-07] MEDS: ENOXAPARIN 40 MG/0.4 ML DISP.SYRIN. SQ SCH (21:38)
[2016-12-07 22:50] VITALS: BP 144/77
--- NOTE | 2016-12-08 02:33 | PN ---
DATE: 12/07/2016 This note covers elements not covered in my initial note of 12/07/2016. The patient was seen individually evening of 12/07/2016. Per nursing report, the patient continues to be depressed, withdrawn. She has been ruminating about the fact that she was told she has a hernia and she is perseverating on this, feeling miserable for her ill health. We processed this during the visit today. She also complains of insomnia and we started trazodone p.r.n. MENTAL STATUS EXAM: The patient readily recognizes me. Speech is coherent, but slightly slurred and I wonder if the Abilify 5 mg a day might have something to do with this. We will drop it down to 2.5 mg a day. Abstraction fair, computation impaired, language function intact. Mood and affect still depressed. LABORATORY DATA: Reviewed. IMPRESSION: Major depressive disorder, recurrent; anxiety disorder, unspecified. PLAN: Continue Cymbalta, Tegretol at current dosage together with trazodone p.r.n., reduce Abilify from 5 mg a day to 2.5 mg a day. Make further adjustments as clinically indicated. MAN Adrianna MITCHELL MD DR: LALITHA/luis angel JOB#: [id number] / [id number]
[2016-12-08] MEDS: IV NORMAL SALINE 1,000ML 1,000 ML IV SCH ×2 (04:28→08:41)
[2016-12-08 05:07] VITALS: BP 135/75
[2016-12-08] MEDS: IPRATRPIUM/ALBUTEROL 0.5/2.5MG 3 ML NEBU. NEB SCH ×2 (05:23→09:40)
--- NOTE | 2016-12-08 05:59 | PN ---
DATE: 12/06/2016 SUBJECTIVE: A 71-year-old female admitted with sepsis. The patient says she feels better this morning, so we are going in the right direction. Her white count is still 18,000, main problem. Her chest x-ray, CTA were basically unremarkable. She has a low calcium of 7.4; however, she has this abdominal hernia. CT scan is pending on that, we will make further evaluation. Blood sugars are down in the 200s now as they were markedly elevated. The patient has cough, although basically she does not have anything noted in her saliva or sputum. She was not able to get up, so may be the infection ____ may be from her abdominal area, where she has this large swelling to her abdominal wall, probably a size of the bowling ball. OBJECTIVE: LUNGS: Diminished, but clear. CARDIOVASCULAR: Regular sinus rhythm. ABDOMEN: Soft, protuberant and abdominal hernia as noted primarily in left midline. Positive bowel sounds ____ noted. EXTREMITIES: No clubbing, cyanosis. Trace edema noted. NEUROLOGIC: The patient otherwise neurologically intact. LABORATORY DATA: White count still elevated at 18,000. IMPRESSION: Sepsis, abdominal pain with massive abdominal ventral hernia, cough, and sinus congestion. PLAN: Continue with IV antibiotic therapy. Monitor lactic acid and make further evaluation, although blood pressure has come down to 140/70, respirations 18, pulse 93, and afebrile. JAYMIE GE MD DR: MAURIZIO/luis angel JOB#: [id number] / [id number]
[2016-12-08 06:48] LABS: BASO # 0.1 x10^3/uL (0.0-0.2); BASO % 0 % (0-3); EOS # 0.8 x10^3/uL (0.0-0.7); EOS % 4 % (0-3); HEMOGLOBIN 10.1 g/dL (12.0-15.5); LYMPH # 8.5 x10^3/uL (1.0-4.8); LYMPH % 37 % (24-48); MEAN CORPUSCULAR HEMOGLOBIN 30 pg (25-35); MEAN CORPUSCULAR HGB CONC 32 g/dL (31-37); MEAN CORPUSCULAR VOLUME 95 fL (79-100); MONO # 1.8 x10^3/uL (0.0-1.1); MONO % 8 % (0-9); NEUT % 52 % (31-73); PLATELET COUNT 340 x10^3/uL (140-400); RED BLOOD COUNT 3.37 x10^6/uL (3.50-5.40); RED CELL DISTRIBUTION WIDTH 13.4 % (11.5-14.5); WHITE BLOOD COUNT 23.1 x10^3/uL (4.0-11.0)
[2016-12-08 06:49] LABS: CALCIUM 8.7 mg/dL (8.5-10.1); CREATININE 0.9 mg/dL (0.6-1.0); GFR 61.7; POTASSIUM 4.3 mmol/L (3.5-5.1)
--- NOTE | 2016-12-08 07:43 | ACF ---
Admit Criteria Forms Admit Criteria Forms Admit Criteria Forms PSYCHIATRIC DISORDERS Clinical Indications for Inpatient Care (Place 'X' for any and all applicable criteria): Ongoing inpatient care may be needed for 1 or more of the following(1)(2)(3)(4)( 6)(7)(8): [ ]I. Danger to self or others not manageable at lower level of care. [ ]II. Grave disability (eg, inability to perform self care necessary at lower level of care) [ ]III. Agitation or inappropriate behavior interfering with care for primary condition (eg, attempting to discontinue lines or drains prematurely, unable to cooperate with respiratory care) [X]IV. Severe disability or disorder indicated by ALL of the following: [X]a) Severe behavioral health disorder-related symptoms or condition indicated by 1 or more of the following: [ ]i) Severe problem with cognition, memory, judgment, or impulse control [X]ii) Severe clinical manifestations (eg, hallucinations, delusions, other acute psychotic symptoms, antoni, extreme agitation or anxiety) [X]b) Patient management at lower level of care is not feasible until acute intervention or modification is initiated. Extended stay beyond goal length of stay for the primary condition may be needed untilALLof the following are present(1)(2)(3)(4)722)(23): [ ]a) Danger to self or others is absent or manageable at lower level of care [ ]b) Behavior crisis management, including physical or chemical restraints, is required and is not available at a lower level of care. [ ]c) Behavioral symptoms (e.g., agitation, somnolence, inappropriate behavior) are present, and are not manageable at a lower level of care. [ ]d) Patient cannot understand follow-up treatment and crisis plan. [ ]e) Provider and supports are sufficiently available at lower level of care. [ ]f) Patient can participate (e.g., verify absence of plan for harm) and is in needed of monitoring. The original [facility] [employer] content created by [facility] [employer] has been revised. The portions of the content which have been revised are identified through the use of italic text, and [facility] [employer] has neither reviewed nor approved the modified material. All other unmodified content is copyright [facility]. Please see references footnoted in the original [facility] edition 2014 JOHAN WALDEN Dec 08, 2016 07:43
[2016-12-08 08:17] LABS: % BANDS 1 % (0-9); % EOS 4 % (0-5); % LYMPHS 39 % (24-48); % MONOS 6 % (0-10); % SEGS 50 % (35-66); PLT ESTIMATE ADEQUATE (ADEQUATE)
[2016-12-08 08:20] LABS: SCHISTOCYTES OCC
[2016-12-08] MEDS: INSULIN ASPART 300 UNITS/3 ML INSULN.PEN SQ SCH (08:25)
[2016-12-08] MEDS: LISINOPRIL 5 MG TABLET. PO SCH (08:36)
[2016-12-08] MEDS: ASPIRIN ENTERIC COATED 81 MG TABLET.DR. PO SCH (08:38)
[2016-12-08] MEDS: NAPROXEN 500 MG TABLET PO SCH (08:39)
[2016-12-08] MEDS: DULoxetine HCL 60 MG CAPSULE.DR PO SCH (08:39)
[2016-12-08] MEDS: OMEGA-3 FATTY ACIDS/FISH OIL 1,000 MG CAPSULE. PO SCH (08:39)
[2016-12-08] MEDS: amLODIPine BESYLATE 5 MG TABLET PO SCH (08:40)
[2016-12-08] MEDS: CYANOCOBALAMIN (VITAMIN B-12) 1,000 MCG TABLET. PO SCH (08:40)
[2016-12-08] MEDS: TOPIRAMATE 25 MG TABLET. PO SCH (08:40)
[2016-12-08] MEDS: NON FORMULARY ITEM (Dexlansoprazole (Dexilant) 1 CAP) PO SCH (08:42)
[2016-12-08] MEDS ORDERED: ARIPiprazole 5 MG TABLET PO SCH (09:00)
[2016-12-08] MEDS: FLUTICASONE 50MCG/NASAL SPRAY 16GM BOTTLE. NS SCH (09:00)
[2016-12-08 10:00] VITALS: BP 131/72
== END 2016-12-08 11:40 | disposition short-term general hospital (02) | DRG 872 ==
LOC: 1 SOUTH 15:18
PROVIDERS: ADMIT Family Medicine; ATTEND Family Medicine
DX: A41.9 Sepsis, unspecified organism (principal); N17.9 Acute kidney failure, unspecified; F33.9 Major depressive disorder, recurrent, unspecified; E11.9 Type 2 diabetes mellitus without complications; E78.5 Hyperlipidemia, unspecified; F41.9 Anxiety disorder, unspecified; I10 Essential (primary) hypertension; K43.9 Ventral hernia without obstruction or gangrene; R09.81 Nasal congestion; Z87.01 Personal history of pneumonia (recurrent); Z87.440 Personal history of urinary (tract) infections; Z88.6 Allergy status to analgesic agent; Z88.1 Allergy status to other antibiotic agents; Z88.8 Allergy status to other drugs, medicaments and biological substances; Z91.018 Allergy to other foods; Z79.4 Long term (current) use of insulin; N18.3 Chronic kidney disease, stage 3 (moderate)
CPT/HCPCS: 36415; 70220; 71020; 71250; 74150; 80048; 80053; 81001; 82947; 83605; 83880; 84484; 85007; 85025; 85379; 86738; 87040; 87086; 87205; 87804; 90732; 94640; 94760; J0692; J0696; J1650; J1815; J1956; J7620; 97110; 97530; J7030

== ENCOUNTER 2016-12-26 15:35 | Emergency (ER) | payer MEDICARE, OTHER ==
[~2016-12-26] VITALS: Ht 144.8 cm; Wt 74.4 kg
[~2016-12-26 15:35] MED LIST changes: +ASCO1TAB14 PO; +ASPI-621 PO; -ASPI1TAB2 PO; +B CO1TAB30 PO; +CHOL500016 PO; +CYAN100072 PO; +INSU100V13 SQ; +MONT10TA6 PO; +NAPR500T3 PO; +OMEG1CAP6 PO; +TOPI25TA52 PO
--- NOTE | 2016-12-26 15:41 | PHYS DOC ---
Past History Past Medical History: Asthma, Diabetes, Hypertension, Renal Disease Past Surgical History: Appendectomy, Cholecystectomy, Hysterectomy Smoking: Non-smoker Alcohol Use: None Drug Use: None Adult General Chief Complaint Chief Complaint: MECHANICAL FALL HPI HPI Patient is a 71 year old female who presents with mechanical fall. She was at her doctor's office and tripped over a rug and fell forward. She states that she thinks she lost consciousness because when she opened her eyes are very was standing around her. She denies any back pain. She does complain about a headache and neck discomfort in addition to right knee pain. She also states that she's has some right sided abdominal pain after she fell Mrs. around her hernia site. She also was seeing Dr. Thomas for a chronic cough that she's been having ever since she was diagnosed with pneumonia and discharged from the hospital. She denies any orthopnea or PND. She states she came later on her house. Short of breath but she states she did a 6 minute walking tests and couldn't walk very far. She states she's been using afwv-sgo-mpketci cough suppressants without any relief. Review of Systems Review of Systems Constitutional: Denies fever or chills [] Eyes: Denies change in visual acuity, redness, or eye pain [] HENT: Denies nasal congestion or sore throat [] Respiratory: Denies cough or shortness of breath [] Cardiovascular: No additional information not addressed in HPI [] GI: Denies abdominal pain, nausea, vomiting, bloody stools or diarrhea [] : Denies dysuria or hematuria [] Musculoskeletal: Positive for neck pain, denies any back pain Integument: Denies rash or skin lesions [] Neurologic: Positive for headache, Denies focal weakness or sensory changes [] Endocrine: Denies polyuria or polydipsia [] Allergies Allergies Allergies Coded Allergies Type Severity Reaction Last Updated Verified grapefruit Allergy Intermediate 12/19/14 Yes hydromorphone Allergy Intermediate 12/19/14 Yes metoclopramide Allergy Intermediate 09/03/14 Yes morphine Allergy Intermediate 09/03/14 Yes phenytoin Allergy Intermediate 09/03/14 Yes temazepam Allergy Intermediate 12/19/14 Yes trazodone Allergy Intermediate 09/03/14 Yes zolpidem Allergy Unknown 12/07/16 Yes Physical Exam Physical Exam Constitutional: Well developed, well nourished, no acute distress, non-toxic appearance. [] HENT: Normocephalic, atraumatic, bilateral external ears normal, oropharynx moist, no oral exudates, nose normal. [] Eyes: PERRLA, EOMI, conjunctiva normal, no discharge. [] Neck: Normal range of motion, c-collar in place supple, no stridor. [] Cardiovascular:Heart rate regular rhythm, no murmur [] Lungs & Thorax: Bilateral breath sounds clear to auscultation [] Abdomen: Bowel sounds normal, soft, no tenderness, no masses, no pulsatile masses. [] Skin: Warm, dry, no erythema, no rash. [] Back: No tenderness, no CVA tenderness. [] Extremities: Her palpation around the right knee with ecchymosis distal to the right knee, no pain with range of motion of hips, no cyanosis, no clubbing, ROM intact, no edema. [] Neurologic: Alert and oriented X 3, normal motor function, normal sensory function, no focal deficits noted. [] Psychologic: Affect normal, judgement normal, mood normal. [] EKG EKG [] Radiology/Procedures Radiology/Procedures [address] [address] IMAGING REPORT Signed PATIENT: PAMELA CAIN ACCOUNT: [id number] : 1945 LOCATION: ER AGE: 71 SEX: F EXAM STATUS: REG ER ORD. PHYSICIAN: MARGARETH WAYNE MD REASON: cough PROCEDURE: CHEST AP ONLY EXAM: Chest one view. HISTORY: Cough. COMPARISON: 12/06/2016. FINDINGS: A frontal view of the chest is obtained. There is mild basilar atelectasis. There are no confluent infiltrates. There is no pneumothorax or pleural effusion. The heart is not clearly enlarged given this projection. There are atherosclerotic calcifications of the aorta. There is a chronic fracture deformity along the right proximal humerus. There may be pagetoid change within the right proximal humerus. IMPRESSION: 1. No confluent infiltrates. DICTATED AND SIGNED BY: VLADISLAV CARVALHO MD DATE: 12/26/16 1956 CC: JAYMIE GE MD; MARGARETH WAYNE MD ~ [address] [address] IMAGING REPORT Signed PATIENT: PAMELA CAIN ACCOUNT: [id number] : 1945 LOCATION: ER AGE: 71 SEX: F EXAM STATUS: REG ER ORD. PHYSICIAN: MARGARETH WAYNE MD REASON: fall with neck pain PROCEDURE: CT HEAD AND CERVICAL SPINE WO EXAM: 1. CT head without contrast. 2. CT cervical spine without contrast. HISTORY: Fall, neck pain. TECHNIQUE: Computed tomography of the head and cervical spine was performed without intravenous contrast. COMPARISON: 11/23/2016. FINDINGS: There is no intracranial hemorrhage. Mild hypoattenuation within the periventricular white matter indicates mild chronic small vessel ischemic change. Prominence of the lateral ventricles and hemispheric sulci indicate mild to moderate atrophy. The visualized paranasal sinuses appear clear. There are changes of bilateral cataract surgery. The temporal bones are unremarkable. The calvarium reveals no suspicious lesions. There are atherosclerotic calcifications of the carotid and vertebral arteries. There is a mild cervical dextrocurvature. Mild reversal of the normal lordosis is likely positional area the craniocervical junction is unremarkable. No fractures are identified. Degenerative disc disease is moderate to severe from C4 through C7 and throughout the upper thoracic spine. It is mild more superiorly. There is no prevertebral soft tissue swelling. At C2-3, there is a small posterior disc bulge. Left facet osteoarthritis does not result in significant stenosis. At C3-4, there is a moderate posterior disc-osteophyte complex. It abuts the anterior cord without clear deformity. Uncovertebral osteoarthritis is mild bilaterally. Left facet osteoarthritis is moderate. Foraminal stenosis is moderate on the left. Central canal stenosis is mild. At C4-5, there is a moderate posterior disc-osteophyte complex. Central canal stenosis appears mild with abutment of the anterior cord. Uncovertebral osteoarthritis is moderate to severe on the right and moderate on the left. Foraminal stenosis is moderate to severe on the right and moderate on the left. At C5-6, there is a moderate posterior disc-osteophyte complex. This appears to flatten the anterior cord mildly. Central canal stenosis is mild to moderate. Uncovertebral osteoarthritis is moderate to severe bilaterally. Foraminal stenosis is mild bilaterally. At C6-7, there is a moderate to large posterior disc-osteophyte complex. Central canal stenosis appears mild to moderate with some flattening of the right anterior cord. Uncovertebral osteoarthritis is moderate to severe on the left and moderate on the right. Foraminal stenosis is moderate on the left and mild on the right. IMPRESSION: 1. No acute intracranial findings. 2. Ihxl-ox-ynwrjdod atrophy and mild chronic small vessel ischemic white matter change. 3. No cervical fracture or malalignment. 4. Multilevel central canal stenosis is mild to moderate at C6-7 and mild more superiorly. 5. Multilevel bilateral foraminal stenosis is generally moderate as detailed above. *One or more of the following individualized dose reduction techniques were utilized for this examination: 1. Automated exposure control. 2. Adjustment of the mA and/or kV according to patient size. 3. Use of iterative reconstruction technique. DICTATED AND SIGNED BY: VLADISLAV CARVALHO MD DATE: 12/26/161615 CC: JAYMIE GE MD; MARGARETH WAYNE MD ~ [place] [address] IMAGING REPORT Signed PATIENT: PAMELA CAIN ACCOUNT: [id number] : 1945 LOCATION: ER AGE: 71 SEX: F EXAM STATUS: REG ER ORD. PHYSICIAN: MARGARETH WAYNE MD REASON: fall with pain PROCEDURE: KNEE RIGHT 4V EXAM: Right knee, 4 views HISTORY: Right knee pain. Fall. COMPARISON: None. FINDINGS: No fractures are identified. Joint spaces are maintained. Alignment is normal. There is no joint effusion. Atherosclerotic calcifications are noted. IMPRESSION: 1. Unremarkable examination of the right knee. DICTATED AND SIGNED BY: VLADISLAV CARVALHO MD DATE: 12/26/16 160 CC: JAYMIE GE MD; MARGARETH WAYNE MD ~ Impressions: Closed head injury Neck pain Knee pain Chronic cough Course & Med Decision Making Course & Med Decision Making Pertinent Labs and Imaging studies reviewed. (See chart for details) CT scan head neck and plain films of chest and knee in addition to her Accu- Chek all were nonacute. Patient feels better is being discharged home. Return precautions. Dragon Disclaimer Dragon Disclaimer This chart was dictated in whole or in part using Voice Recognition software in a busy, high-work load, and often noisy Emergency Department environment. It may contain unintended and wholly unrecognized errors or omissions. Departure Departure: Impression: Primary Impression: Closed head injury Disposition: 01 HOME, SELF-CARE Condition: STABLE Referrals: JAYMIE GE MD (PCP) Patient Instructions: Head Injury, Adult, [id number] Additional Instructions: The CAT scan of your head neck and addition to chest x-ray and your x-ray of your knee did not show any abnormalities. Your being discharged home. You can try taking Tylenol as needed for pain. If your headache gets severe. You become confused please return back to emergency department immediately. You can take Tessalon Perles for your cough. You will need to follow-up with your primary care physician regarding her chronic cough. Scripts Benzonatate (TESSALON PERLE) 100 Mg Capsule 1 CAP PO TID Y for COUGH, #30 CAP Prov: MARGARETH WAYNE MD 12/26/16 Problem Qualifiers Primary Impression: Closed head injury Encounter type: initial encounter Qualified Codes: S09.90XA - Unspecified injury of head, initial encounter MARGARETH WAYNE MD Dec 26, 2016 15:41
--- NOTE | 2016-12-26 16:10 | RAD ---
EXAM: Right knee, 4 views HISTORY: Right knee pain. Fall. COMPARISON: None. FINDINGS: No fractures are identified. Joint spaces are maintained. Alignment is normal. There is no joint effusion. Atherosclerotic calcifications are noted. IMPRESSION: 1. Unremarkable examination of the right knee.
--- NOTE | 2016-12-26 16:27 | RAD ---
EXAM: 1. CT head without contrast. 2. CT cervical spine without contrast. HISTORY: Fall, neck pain. TECHNIQUE: Computed tomography of the head and cervical spine was performed without intravenous contrast. COMPARISON: 11/23/2016. FINDINGS: There is no intracranial hemorrhage. Mild hypoattenuation within the periventricular white matter indicates mild chronic small vessel ischemic change. Prominence of the lateral ventricles and hemispheric sulci indicate mild to moderate atrophy. The visualized paranasal sinuses appear clear. There are changes of bilateral cataract surgery. The temporal bones are unremarkable. The calvarium reveals no suspicious lesions. There are atherosclerotic calcifications of the carotid and vertebral arteries. There is a mild cervical dextrocurvature. Mild reversal of the normal lordosis is likely positional area the craniocervical junction is unremarkable. No fractures are identified. Degenerative disc disease is moderate to severe from C4 through C7 and throughout the upper thoracic spine. It is mild more superiorly. There is no prevertebral soft tissue swelling. At C2-3, there is a small posterior disc bulge. Left facet osteoarthritis does not result in significant stenosis. At C3-4, there is a moderate posterior disc-osteophyte complex. It abuts the anterior cord without clear deformity. Uncovertebral osteoarthritis is mild bilaterally. Left facet osteoarthritis is moderate. Foraminal stenosis is moderate on the left. Central canal stenosis is mild. At C4-5, there is a moderate posterior disc-osteophyte complex. Central canal stenosis appears mild with abutment of the anterior cord. Uncovertebral osteoarthritis is moderate to severe on the right and moderate on the left. Foraminal stenosis is moderate to severe on the right and moderate on the left. At C5-6, there is a moderate posterior disc-osteophyte complex. This appears to flatten the anterior cord mildly. Central canal stenosis is mild to moderate. Uncovertebral osteoarthritis is moderate to severe bilaterally. Foraminal stenosis is mild bilaterally. At C6-7, there is a moderate to large posterior disc-osteophyte complex. Central canal stenosis appears mild to moderate with some flattening of the right anterior cord. Uncovertebral osteoarthritis is moderate to severe on the left and moderate on the right. Foraminal stenosis is moderate on the left and mild on the right. IMPRESSION: 1. No acute intracranial findings. 2. Tsbk-bg-dfhppqhk atrophy and mild chronic small vessel ischemic white matter change. 3. No cervical fracture or malalignment. 4. Multilevel central canal stenosis is mild to moderate at C6-7 and mild more superiorly. 5. Multilevel bilateral foraminal stenosis is generally moderate as detailed above. *One or more of the following individualized dose reduction techniques were utilized for this examination: 1. Automated exposure control. 2. Adjustment of the mA and/or kV according to patient size. 3. Use of iterative reconstruction technique.
--- NOTE | 2016-12-26 16:52 | RAD ---
EXAM: Chest one view. HISTORY: Cough. COMPARISON: 12/06/2016. FINDINGS: A frontal view of the chest is obtained. There is mild basilar atelectasis. There are no confluent infiltrates. There is no pneumothorax or pleural effusion. The heart is not clearly enlarged given this projection. There are atherosclerotic calcifications of the aorta. There is a chronic fracture deformity along the right proximal humerus. There may be pagetoid change within the right proximal humerus. IMPRESSION: 1. No confluent infiltrates.
[2016-12-26] MEDS ORDERED: BENZ100C PO (17:31)
[2016-12-26 17:50] VITALS: BP 165/90
== END 2016-12-26 17:50 | disposition home or self-care (01) ==
LOC: ER 15:35
DX: S09.8XXA Other specified injuries of head, initial encounter (principal); M54.2 Cervicalgia; M25.561 Pain in right knee; J45.909 Unspecified asthma, uncomplicated; E11.9 Type 2 diabetes mellitus without complications; N28.9 Disorder of kidney and ureter, unspecified; Z88.5 Allergy status to narcotic agent; Z88.8 Allergy status to other drugs, medicaments and biological substances; Z91.018 Allergy to other foods; W18.09XA Striking against other object with subsequent fall, initial encounter; Y93.89 Activity, other specified; Y92.89 Other specified places as the place of occurrence of the external cause; Y99.8 Other external cause status
CPT/HCPCS: 70450; 71010; 72125; 73564; 82947; 96374; 99285; J3010

== ENCOUNTER 2017-01-09 16:35 | Emergency (ER) | payer MEDICARE, OTHER ==
[~2017-01-09] VITALS: Ht 144.8 cm; Wt 74.4 kg
[~2017-01-09 16:35] MED LIST changes: +BENZ100C PO; -NAPR500T3 PO; +NAPR500T4 PO
--- NOTE | 2017-01-09 17:01 | PHYS DOC ---
General Chief Complaint: MECHANICAL FALL Stated Complaint: HEADACHE Time Seen by MD: 16:37 Problems: History of Present Illness Initial Comments Patient is a 71-year-old female sent to the ED by Dr. Reyes, a new physician and Dr. Ge's office for CT evaluation from reported fall. Dr. Reyes did call and give a report to ED staff. He reports the patient is neurologically intact aside from some dizziness. Patient apparently fell yesterday trying to leave the house, she states that after she fell while she was trying to get up the screen door repeatedly hit her in the head in addition to her hitting her head on the ground. She states that her head was twisted to the left and she complains of lateral right neck pain she describes as muscular. She denies any midline or bony pain. She has had some dizziness and Dr. Reyes has sent her requesting that we repeat CT evaluation. Patient denies loss of consciousness nausea vomiting photophobia or focal neurologic deficit new with this fall. I have attached CT report from December 26 fall. PATIENT: PAMELA CAIN ACCOUNT: [id number] : 1945 LOCATION: ER AGE: 71 SEX: F EXAM STATUS: REG ER ORD. PHYSICIAN: MARGARETH WAYNE MD REASON: fall with neck pain PROCEDURE: CT HEAD AND CERVICAL SPINE WO EXAM: 1. CT head without contrast. 2. CT cervical spine without contrast. HISTORY: Fall, neck pain. TECHNIQUE: Computed tomography of the head and cervical spine was performed without intravenous contrast. COMPARISON: 11/23/2016. FINDINGS: There is no intracranial hemorrhage. Mild hypoattenuation within the periventricular white matter indicates mild chronic small vessel ischemic change. Prominence of the lateral ventricles and hemispheric sulci indicate mild to moderate atrophy. The visualized paranasal sinuses appear clear. There are changes of bilateral cataract surgery. The temporal bones are unremarkable. The calvarium reveals no suspicious lesions. There are atherosclerotic calcifications of the carotid and vertebral arteries. There is a mild cervical dextrocurvature. Mild reversal of the normal lordosis is likely positional area the craniocervical junction is unremarkable. No fractures are identified. Degenerative disc disease is moderate to severe from C4 through C7 and throughout the upper thoracic spine. It is mild more superiorly. There is no prevertebral soft tissue swelling. At C2-3, there is a small posterior disc bulge. Left facet osteoarthritis does not result in significant stenosis. At C3-4, there is a moderate posterior disc-osteophyte complex. It abuts the anterior cord without clear deformity. Uncovertebral osteoarthritis is mild bilaterally. Left facet osteoarthritis is moderate. Foraminal stenosis is moderate on the left. Central canal stenosis is mild. At C4-5, there is a moderate posterior disc-osteophyte complex. Central canal stenosis appears mild with abutment of the anterior cord. Uncovertebral osteoarthritis is moderate to severe on the right and moderate on the left. Foraminal stenosis is moderate to severe on the right and moderate on the left. At C5-6, there is a moderate posterior disc-osteophyte complex. This appears to flatten the anterior cord mildly. Central canal stenosis is mild to moderate. Uncovertebral osteoarthritis is moderate to severe bilaterally. Foraminal stenosis is mild bilaterally. At C6-7, there is a moderate to large posterior disc-osteophyte complex. Central canal stenosis appears mild to moderate with some flattening of the right anterior cord. Uncovertebral osteoarthritis is moderate to severe on the left and moderate on the right. Foraminal stenosis is moderate on the left and mild on the right. IMPRESSION: 1. No acute intracranial findings. 2. Ymqk-ha-hthtlmsk atrophy and mild chronic small vessel ischemic white matter change. 3. No cervical fracture or malalignment. 4. Multilevel central canal stenosis is mild to moderate at C6-7 and mild more superiorly. 5. Multilevel bilateral foraminal stenosis is generally moderate as detailed above. *One or more of the following individualized dose reduction techniques were utilized for this examination: 1. Automated exposure control. 2. Adjustment of the mA and/or kV according to patient size. 3. Use of iterative reconstruction technique. DICTATED AND SIGNED BY: VLADISLAV CARVALHO MD DATE: 12/26/16 7554 CC: JAYMIE GE MD; MARGARETH WAYNE MD ~ Occurred: yesterday Severity: moderate Injuries/Pain Location: head, neck Context: slipped Loss of Consciousness: no loss of consciousness Modifying Factors: worse with jarring, worse with movement Associated Symptoms: dizziness, headache, muscle spasms Allergies: Coded Allergies: grapefruit (Verified Allergy, Intermediate, 12/19/14) hydromorphone (Verified Allergy, Intermediate, 12/19/14) metoclopramide (Verified Allergy, Intermediate, 09/03/14) morphine (Verified Allergy, Intermediate, 09/03/14) phenytoin (Verified Allergy, Intermediate, 09/03/14) temazepam (Verified Allergy, Intermediate, 12/19/14) trazodone (Verified Allergy, Intermediate, 09/03/14) zolpidem (Verified Allergy, Unknown, 12/07/16) Past Medical History Medical History: other (anxiety, depression, GERD) Surgical History: noncontributory Social History Smoker: non-smoker Alcohol: none Drugs: none Review of Systems Constitutional: denies chills, denies fever Eyes: denies blindness, denies decreased acuity Ears, Nose, Mouth, Throat: denies ear discharge, denies nose discharge, denies epistaxis, denies mouth pain Respiratory: denies cough, denies shortness of breath Cardiovascular: denies chest pain, denies palpitations, denies syncope Gastrointestinal: denies nausea, denies vomiting Musculoskeletal: see HPI Skin: see HPI Physical Exam General Appearance: no apparent distress, obese Head: no evidence of injury (head is normocephalic atraumatic negative Ramos sign negative raccoon eyes no ear or nose discharge no fluid behind TMs bilaterally.) Eyes: bilateral eye normal inspection, bilateral eye PERRL, bilateral eye EOMI Ears, Nose, Mouth, Throat: hearing grossly normal, no evidence of ENT injury, no dental injury Neck: full range of motion, muscle spasm (right sided muscle hypertonicity with tenderness no midline or bony pain) Cardiovascular/Respiratory: normal breath sounds, no respiratory distress Gastrointestinal: non tender, soft Back: no CVA tenderness, no vertebral tenderness Extremities: non-tender, pelvis stable Neurologic/Psychiatric: residential treatment staff II-XII nml as tested, no motor/sensory deficits, alert, normal mood/affect, oriented x 3 Skin: normal color, warm/dry [place] Coma Score Best Eye Response: (4) open spontaneously (I know all his life and) Best Verbal Response: (5) oriented Best Motor Response: (6) obeys commands Andrea Total: 15 Orders, Labs, Meds PATIENT: PAMELA CAIN ACCOUNT: [id number] : 1945 LOCATION: ER AGE: 71 SEX: F EXAM STATUS: REG ER ORD. PHYSICIAN: ÁLVARO JOE DO REASON: fall/head trauma yest, dizzy/neck pain today PROCEDURE: CT HEAD AND CERVICAL SPINE WO CT scan of the head without contrast 01/09/2017 Clinical History: Fall last night with head pain and dizziness. Technique: Unenhanced, contiguous, 5 mm axial sections were obtained through the head. One or more of the following individualized dose reduction techniques were utilized for this study: 1. Automated exposure control. 2. Adjustment of the mA and/or kV according to patient size. 3. Use of iterative reconstruction technique. Findings: Comparison study is dated 12/26/2016. There is generalized parenchymal atrophy. Areas of decreased attenuation are seen within the periventricular and subcortical white matter of both cerebral hemispheres consistent with areas of small vessel ischemic disease. No acute parenchymal abnormality is seen. No extra-axial fluid collection is noted. No skull fracture is seen. Impression: No acute intracranial abnormality is seen. CT scan of the cervical spine without contrast 01/09/2017 Clinical history: Fall with neck pain. Technique: Unenhanced, contiguous, 0.625 mm axial sections were obtained through the cervical spine. Axial, coronal and sagittal reconstructed images were obtained. One or more of the following individualized dose reduction techniques were utilized for this study: 1. Automated exposure control. 2. Adjustment of the mA and/or kV according to patient size. 3. Use of iterative reconstruction technique. Findings: Sagittal and coronal reconstructed images demonstrate mild lateral curvature of the cervical spine convex to the right. There is reversal of the normal cervical lordosis. Degenerative changes consisting of disc space narrowing, vertebral endplate sclerosis and mild to moderate anterior and posterior vertebral body osteophyte formation are seen throughout the mid and lower cervical disc spaces. Degenerative changes are seen along the uncovertebral and facet joints throughout the cervical disc spaces. Moderate atherosclerotic calcification is seen in the region of the carotid bifurcations. Impression: No fracture or subluxation of the cervical vertebra is identified. Electronically signed by: Eligio Loya MD (01/09/2017 5:34 PM) [facility] DICTATED AND SIGNED BY: ELIGIO LOYA MD DATE: 01/09/17 1728 CC: JAYMIE GE MD; ÁLVARO JOE DO ~ I discussed findings with the patient and her spouse. Copies of her imaging were given via disc and written report as they are to follow-up with Dr. Reyes. They fester agreement and understanding with the treatment plan and have taken measures to prevent further falls. Departure Time of Disposition: 17:51 Disposition: 01 HOME, SELF-CARE Diagnosis: recurrant fall, concussion, cervical strain Condition: GOOD Patient Instructions: Cervical Strain and Sprain with Rehab-SportsMed, Concussion and Brain Injury, Usbt-gc-Crqz, Fall Prevention and Home Safety, Easy -to-Read Additional Instructions: Use motorized wheelchair and assisted lift to prevent further falls as discussed. Continue current medications. Take disc of your images and written copy of CT results to follow-up appointment with Dr. Reyes as discussed. Return to ED with new or changing symptoms. ÁLVARO JOE DO Jan 09, 2017 17:01
--- NOTE | 2017-01-09 17:37 | RAD ---
CT scan of the head without contrast 01/09/2017 Clinical History: Fall last night with head pain and dizziness. Technique: Unenhanced, contiguous, 5 mm axial sections were obtained through the head. One or more of the following individualized dose reduction techniques were utilized for this study: 1. Automated exposure control. 2. Adjustment of the mA and/or kV according to patient size. 3. Use of iterative reconstruction technique. Findings: Comparison study is dated 12/26/2016. There is generalized parenchymal atrophy. Areas of decreased attenuation are seen within the periventricular and subcortical white matter of both cerebral hemispheres consistent with areas of small vessel ischemic disease. No acute parenchymal abnormality is seen. No extra-axial fluid collection is noted. No skull fracture is seen. Impression: No acute intracranial abnormality is seen. CT scan of the cervical spine without contrast 01/09/2017 Clinical history: Fall with neck pain. Technique: Unenhanced, contiguous, 0.625 mm axial sections were obtained through the cervical spine. Axial, coronal and sagittal reconstructed images were obtained. One or more of the following individualized dose reduction techniques were utilized for this study: 1. Automated exposure control. 2. Adjustment of the mA and/or kV according to patient size. 3. Use of iterative reconstruction technique. Findings: Sagittal and coronal reconstructed images demonstrate mild lateral curvature of the cervical spine convex to the right. There is reversal of the normal cervical lordosis. Degenerative changes consisting of disc space narrowing, vertebral endplate sclerosis and mild to moderate anterior and posterior vertebral body osteophyte formation are seen throughout the mid and lower cervical disc spaces. Degenerative changes are seen along the uncovertebral and facet joints throughout the cervical disc spaces. Moderate atherosclerotic calcification is seen in the region of the carotid bifurcations. Impression: No fracture or subluxation of the cervical vertebra is identified. Electronically signed by: Eligio Loya MD (01/09/2017 5:34 PM) [facility]
[2017-01-09 18:05] VITALS: BP 121/70
== END 2017-01-09 18:16 | disposition home or self-care (01) ==
LOC: ER 16:35
DX: S06.0X0A Concussion without loss of consciousness, initial encounter (principal); S16.1XXA Strain of muscle, fascia and tendon at neck level, initial encounter; R29.6 Repeated falls; F41.9 Anxiety disorder, unspecified; F32.9 Major depressive disorder, single episode, unspecified; K21.9 Gastro-esophageal reflux disease without esophagitis; Z88.5 Allergy status to narcotic agent; Z88.8 Allergy status to other drugs, medicaments and biological substances; Z91.018 Allergy to other foods; W18.09XA Striking against other object with subsequent fall, initial encounter; Y93.89 Activity, other specified; Y99.8 Other external cause status; Y92.009 Unspecified place in unspecified non-institutional (private) residence as the place of occurrence of the external cause
CPT/HCPCS: 70450; 72125; 99284-25

== ENCOUNTER → 2017-01-26 | Day surgery (SDC) | payer MEDICARE, OTHER ==
[2017-01-09 18:05] VITALS: BP 121/70
[~2017-01-26] MED LIST changes: +ALBUTEROL SULFATE 2.5 MG/3 ML NEBU. ONE; +GLYCOPYRROLATE 1 MG/5 ML VIAL. ONE; +IV RINGERS SOLUTION,LACTATED 1,000 ML IV ONE; +KETAMINE HCL 500 MG/10 ML VIAL. ONE; +LIDOCAINE 2% PF Vial for OR 5 ML VIAL. ONE; +PROPOFOL 20 ML IV ONE
== END | disposition home or self-care (01) ==
LOC: SURG 08:58
PROVIDERS: ATTEND Internal Medicine Gastroenterology
DX: K64.8 Other hemorrhoids (principal); K57.30 Diverticulosis of large intestine without perforation or abscess without bleeding; K29.70 Gastritis, unspecified, without bleeding; B37.81 Candidal esophagitis; I10 Essential (primary) hypertension; E78.5 Hyperlipidemia, unspecified; E11.9 Type 2 diabetes mellitus without complications; Z87.01 Personal history of pneumonia (recurrent); Z98.890 Other specified postprocedural states
CPT/HCPCS: 43239; 45380; 82947; J2704; J3490; J7120; J7613; J2001

== ENCOUNTER 2017-03-22 13:15 | Inpatient (IN) | payer MEDICARE, OTHER ==
[~2017-03-22] VITALS: Ht 144.8 cm; Wt 75.1 kg
[~2017-03-22 13:15] MED LIST changes: -ALBUTEROL SULFATE 2.5 MG/3 ML NEBU. ONE; -GLYCOPYRROLATE 1 MG/5 ML VIAL. ONE; -IV RINGERS SOLUTION,LACTATED 1,000 ML IV ONE; -KETAMINE HCL 500 MG/10 ML VIAL. ONE; -LIDOCAINE 2% PF Vial for OR 5 ML VIAL. ONE; +NAPR-683 PO; -NAPR500T PO; -PROPOFOL 20 ML IV ONE
[2017-03-22] MEDS ORDERED: ONDANSETRON PF 4 MG/2 ML VIAL. IV ONE (13:30)
[2017-03-22 13:49] LABS: BASO # 0.1 x10^3/uL (0.0-0.2); BASO % 1 % (0-3); EOS # 0.2 x10^3/uL (0.0-0.7); EOS % 2 % (0-3); HEMOGLOBIN 11.3 g/dL (12.0-15.5); LYMPH # 5.9 x10^3/uL (1.0-4.8); LYMPH % 37 % (24-48); MEAN CORPUSCULAR HEMOGLOBIN 31 pg (25-35); MEAN CORPUSCULAR HGB CONC 32 g/dL (31-37); MEAN CORPUSCULAR VOLUME 94 fL (79-100); MONO # 1.3 x10^3/uL (0.0-1.1); MONO % 8 % (0-9); NEUT # 8.4 x10^3uL (1.8-7.7); NEUT % 53 % (31-73); PLATELET COUNT 427 x10^3/uL (140-400); RED BLOOD COUNT 3.71 x10^6/uL (3.50-5.40); RED CELL DISTRIBUTION WIDTH 14.5 % (11.5-14.5); WHITE BLOOD COUNT 15.9 x10^3/uL (4.0-11.0)
[2017-03-22] MEDS ORDERED: IV NORMAL SALINE 500ML 500 ML IV ONE (14:00)
[2017-03-22 14:12] LABS: ALBUMIN 3.4 g/dL (3.4-5.0); ALBUMIN/GLOBULIN RATIO 0.8 (1.0-1.7); CALCIUM 10.2 mg/dL (8.5-10.1); CREATININE 2.5 mg/dL (0.6-1.0); POTASSIUM 5.8 mmol/L (3.5-5.1); TOTAL BILIRUBIN 0.2 mg/dL (0.2-1.0); TOTAL PROTEIN 7.8 g/dL (6.4-8.2)
[2017-03-22 14:15] LABS: % BANDS 2 % (0-9); % EOS 1 % (0-5); % LYMPHS 41 % (24-48); % MONOS 4 % (0-10); % SEGS 52 % (35-66)
[2017-03-22 14:17] LABS: PLT ESTIMATE INCREASED (ADEQUATE)
[2017-03-22 14:18] LABS: INFLUENZA A PATIENT NEGATIVE (NEGATIVE); INFLUENZA B PATIENT NEGATIVE (NEGATIVE)
[2017-03-22] MEDS ORDERED: ALBUTEROL SULFATE 2.5 MG/3 ML NEBU. CONT NEB ONE (15:00)
[2017-03-22] MEDS ORDERED: IV NORMAL SALINE 1,000ML 2,190 ML IV SCH (15:00)
[2017-03-22] MEDS ORDERED: ALBUTEROL SULFATE 2.5 MG/3 ML NEBU. ONE (15:04)
[2017-03-22] MEDS ORDERED: IV NORMAL SALINE 50ML 50 ML ONE (15:10)
--- NOTE | 2017-03-22 15:10 | RAD ---
History: Elevated lactic acid AP view the chest was obtained at 1503 hours. Comparison: December 26, 2016 The cardiomediastinal silhouette is normal. The pulmonary vasculature is normal. The lungs and pleural margins are clear. Impression: No evidence of an acute cardiopulmonary process.
[2017-03-22 15:11] LABS: BACTERIA,URINE 0 /HPF (0-FEW); BILIRUBIN,URINE NEG (NEG); CLARITY,URINE HAZY; COLOR,URINE YELLOW; GLUCOSE,URINE NEG (NEG); NITRITE,URINE NEG (NEG); SQUAMOUS EPITHELIAL CELL,UR MOD /LPF; UROBILINOGEN,URINE 0.2 mg/dL (0.2 mg/dL)
[2017-03-22] MEDS ORDERED: PIPERACILLIN/TAZOBACTAM 3.375 GM VIAL IV ONE (15:11)
--- NOTE | 2017-03-22 15:11 | PHYS DOC ---
Past History Past Medical History: Cancer, COPD, Depression, Diabetes, High Cholesterol, Hypertension Past Surgical History: Cholecystectomy, Hysterectomy, Tonsillectomy, Other Smoking: Non-smoker Alcohol Use: Sober Drug Use: None Adult General Chief Complaint Chief Complaint: NAUSEA/VOMITING/DIARRHEA HPI HPI 71-year-old female patient brought in by EMS because of nausea and vomiting and diarrhea for one week. Patient states she has had 4 episodes of vomiting daily and total of 2 episodes of diarrhea for the last one week with lower abdominal cramping pain and episode of nonproductive cough with subjective fever and chills and generalized weakness. Patient denies chest pain and palpitation and urinary symptom. Patient states she had sick contacts at home and her had the same problem. Review of Systems Review of Systems Constitutional: Reports subjective fever and chills and generalized weakness Eyes: Denies change in visual acuity, redness, or eye pain [] HENT: Denies nasal congestion or sore throat [] Respiratory: Reports cough and shortness of breath [] Cardiovascular: No additional information not addressed in HPI [] GI: Reports abdominal pain, nausea, vomiting, diarrhea [] : Denies dysuria or hematuria [] Musculoskeletal: Denies back pain or joint pain [] Integument: Denies rash or skin lesions [] Neurologic: Denies headache, focal weakness or sensory changes [] Endocrine: Denies polyuria or polydipsia [] All other systems were reviewed and found to be within normal limits, except as documented in this note. Current Medications Current Medications Current Medications Medications (Trade) Dose Ordered Sig/Kristin Start Time Stop Time Status Last Admin Dose Admin Albuterol Sulfate (Ventolin) 10 mg 1X ONCE 03/22/17 15:00 03/22/17 15:01 UNV Ondansetron HCl (Zofran) 4 mg 1X ONCE 03/22/17 13:30 03/22/17 13:46 DC 03/22/17 13:52 4 MG Piperacillin Sod/ Tazobactam Sod 3.375 gm/Sodium Chloride 50 ml @ 100 mls/hr 1X ONCE 03/22/17 15:00 03/22/17 15:29 UNV Sodium Polystyrene Sulfonate (Kayexalate) 15 gm 1X ONCE 03/22/17 15:00 03/22/17 15:01 UNV Sodium Chloride 2,190 ml @ 2,190 mls/hr Q1H 03/22/17 15:00 UNV Vancomycin HCl 1 gm/Sodium Chloride 250 ml @ 250 mls/hr 1X ONCE 03/22/17 15:00 03/22/17 15:59 UNV Allergies Allergies Allergies Coded Allergies Type Severity Reaction Last Updated Verified grapefruit Allergy Intermediate 12/19/14 Yes hydromorphone Allergy Intermediate 12/19/14 Yes metoclopramide Allergy Intermediate 09/03/14 Yes morphine Allergy Intermediate 09/03/14 Yes phenytoin Allergy Intermediate 09/03/14 Yes temazepam Allergy Intermediate 12/19/14 Yes trazodone Allergy Intermediate 09/03/14 Yes zolpidem Allergy Unknown 12/07/16 Yes Physical Exam Physical Exam Constitutional: Mild distress, ill looking , dehydrated, afebrile, non-toxic appearance. [] HENT: Normocephalic, atraumatic, bilateral external ears normal, oropharynx dry , no oral exudates, nose normal. [] Eyes: PERRLA, EOMI, conjunctiva normal, no discharge. [] Neck: Normal range of motion, no tenderness, supple, no stridor. [] Cardiovascular: Tachycardia, no murmur [] Lungs & Thorax: Bilateral breath sounds clear to auscultation [] Abdomen: Bowel sounds is hypoactive, soft, no tenderness, no masses, no pulsatile masses. [] Skin: Warm, dry, no erythema, no rash. [] Back: No tenderness, no CVA tenderness. [] Extremities: No tenderness, no cyanosis, no clubbing, ROM intact, no edema. [] Neurologic: Alert and oriented X 3, normal motor function, normal sensory function, no focal deficits noted. [] Psychologic: Affect normal, judgement normal, mood normal. [] Current Patient Data Vital Signs Vital Signs Date Time Temp Pulse Resp B/P (MAP) Pulse Ox O2 Delivery O2 Flow Rate FiO2 03/22/17 13:22 97.8 112 18 98 Nasal Cannula 2.0 Lab Results Laboratory Tests Test 03/22/17 13:30 03/22/17 13:53 03/22/17 14:07 White Blood Count 15.9 x10^3/uL (4.0-11.0) H Red Blood Count 3.71 x10^6/uL (3.50-5.40) Hemoglobin 11.3 g/dL (12.0-15.5) L Hematocrit 35.0 % (36.0-47.0) L Mean Corpuscular Volume 94 fL (79-100) Mean Corpuscular Hemoglobin 31 pg (25-35) Mean Corpuscular Hemoglobin Concent 32 g/dL (31-37) Red Cell Distribution Width 14.5 % (11.5-14.5) Platelet Count 427 x10^3/uL (140-400) H Neutrophils (%) (Auto) 53 % (31-73) Lymphocytes (%) (Auto) 37 % (24-48) Monocytes (%) (Auto) 8 % (0-9) Eosinophils (%) (Auto) 2 % (0-3) Basophils (%) (Auto) 1 % (0-3) Neutrophils # (Auto) 8.4 x10^3uL (1.8-7.7) H Lymphocytes # (Auto) 5.9 x10^3/uL (1.0-4.8) H Monocytes # (Auto) 1.3 x10^3/uL (0.0-1.1) H Eosinophils # (Auto) 0.2 x10^3/uL (0.0-0.7) Basophils # (Auto) 0.1 x10^3/uL (0.0-0.2) Segmented Neutrophils % 52 % (35-66) Band Neutrophils % 2 % (0-9) Lymphocytes % 41 % (24-48) Monocytes % 4 % (0-10) Eosinophils % 1 % (0-5) Platelet Estimate Increased (ADEQUATE) Large Platelets Occ Giant Platelets Occ Sodium Level 137 mmol/L (136-145) Potassium Level 5.8 mmol/L (3.5-5.1) H Chloride Level 102 mmol/L (98-107) Carbon Dioxide Level 21 mmol/L (21-32) Anion Gap 14 (6-14) Blood Urea Nitrogen 39 mg/dL (7-20) H Creatinine 2.5 mg/dL (0.6-1.0) H Estimated GFR (Cockcroft-Gault) 19.0 BUN/Creatinine Ratio 16 (6-20) Glucose Level 321 mg/dL (70-99) H Calcium Level 10.2 mg/dL (8.5-10.1) H Total Bilirubin 0.2 mg/dL (0.2-1.0) Aspartate Amino Transferase (AST) 18 U/L (15-37) Alanine Aminotransferase (ALT) 19 U/L (14-59) Alkaline Phosphatase 56 U/L (46-116) Troponin I Quantitative < 0.017 ng/mL (0-0.055) CV-Mdz-X-Type Natriuretic Peptide 188 pg/mL (0-124) H Total Protein 7.8 g/dL (6.4-8.2) Albumin 3.4 g/dL (3.4-5.0) Albumin/Globulin Ratio 0.8 (1.0-1.7) L Lipase 88 U/L (73-393) Influenza Type A (Rapid) Negative (NEGATIVE) Influenza Type B (Rapid) Negative (NEGATIVE) Lactic Acid Level 4.7 mmol/L (0.4-2.0) *H EKG EKG [EKG interpreted by me . EKG at 1323 showed sinus tachycardia at rate of 110, abnormal left axis deviation, poor R-wave progress in inferior leads Radiology/Procedures Radiology/Procedures [] Course & Med Decision Making Course & Med Decision Making Pertinent Labs and Imaging studies reviewed. (See chart for details) Evaluation of patient in ER showed 71-year-old patient brought in by EMS because of nausea and vomiting and diarrhea for one week. Patient had tachycardia without fever or hypotension. Patient had elevation of lactic acid at 4.7 and leukocytosis of 16,000. Code sepsis treatment was started with obtaining blood culture and starting IV fluid and antibiotic. UA showed mild UTI. Cardiac enzymes was unremarkable. Patient had blood sugar more than 300. CT of abdomen/pelvis is pending. Patient had potassium of 5.8 and albuterol and Kayexalate was given. Patient felt better after treatment in ER. Dr. Moreland was informed at 1512 and agreed with plan of care. Dragon Disclaimer Dragon Disclaimer This electronic medical record was generated, in whole or in part, using a voice recognition dictation system. Departure Departure: Impression: Primary Impression: Severe sepsis Additional Impressions: Hyperkalemia Renal insufficiency Uncontrolled diabetes mellitus Hyperglycemia Nausea and vomiting UTI (lower urinary tract infection) Disposition: 09 ADMITTED INPATIENT (At 1512) Admitting Physician: Jimenez Moreland Referrals: JIMENEZ MORELAND MD (PCP) Critical Care Note Total Time (mins): 70 Problem Qualifiers CAROLINE VALENCIA MD Mar 22, 2017 15:11
[2017-03-22 15:12] LABS: HYALINE CASTS, URINE MANY /HPF
[2017-03-22] MEDS ORDERED: IV NORMAL SALINE 1,000ML 1,000 ML IV ONE (15:15)
[2017-03-22] MEDS ORDERED: ONDANSETRON PF 4 MG/2 ML VIAL. IV PRN (15:15)
[2017-03-22] MEDS ORDERED: SODIUM POLYSTYRENE SULFONATE 15 GM/60 ML ORAL.SUSP. PO ONE (15:30)
[2017-03-22] MEDS ORDERED: PIPERACILLIN/TAZOBACTAM 3.375 GM in IV NORMAL SALINE 50ML 50 ML IV ONE (15:30)
[2017-03-22] MEDS ORDERED: IV NORMAL SALINE 250ML 250 ML ONE (15:54)
[2017-03-22] MEDS ORDERED: VANCOMYCIN 1 GM VIAL. ONE (15:54)
[2017-03-22] MEDS ORDERED: VANCOMYCIN 1 GM in IV NORMAL SALINE 250ML 250 ML IV ONE (16:00)
--- NOTE | 2017-03-22 16:17 | RAD ---
CT abdomen and pelvis without contrast: History: Nausea vomiting diarrhea leukocytosis and elevated lactic acid . Comparison:December 10, 2016. Procedure: Axial images are obtained of the abdomen and pelvis without IV or oral contrast. CT abdomen without contrast: Evaluation of solid organs is limited without contrast. There are 2 ventral abdominal wall hernias containing multiple loops of bowel seen previously and unchanged. Liver: Normal. Spleen: Removed. Pancreas: Normal. Gallbladder: Removed. Adrenal Glands: Normal. Kidneys: Normal. There is no free air or free fluid. There is no lymphadenopathy. Impression: Please see CT pelvis without contrast. CT pelvis without contrast: Evaluation of stomach and bowel is limited without contrast. There is no free fluid or lymphadenopathy. There are multiple lytic lesions in the iliacs. These are unchanged also seen on December 02, 2012 CT and therefore felt to be benign. Impression: 1. Ventral hernias seen previously. 2. Stable appearance of the abdomen and pelvis. End impression PQRS Compliance Statement: One or more of the following individualized dose reduction techniques were utilized for this examination: 1. Automated exposure control 2. Adjustment of the mA and/or kV according to patient size 3. Use of iterative reconstruction technique
--- NOTE | 2017-03-22 16:24 | EKG ---
[address] [address] Test Date: 2017-03-22 Test Time: 13:23:48 Pat Name: PAMELA CAIN Department: Room: Gender: F Dermatologist And Dermatopathologist: NINA : 1945 Requested By: CAROLINE VALENCIA Order Number: [id number] Reading MD: Shahid Medrano Measurements Intervals [place] Rate: 110 P: 45 DE: 184 QRS: -46 QRSD: 84 T: 66 QT: 316 QTc: 433 Interpretive Statements SINUS TACHYCARDIA ABNORMAL LEFT AXIS DEVIATION QRS(T) CONTOUR ABNORMALITY CONSISTENT WITH INFERIOR INFARCT PROBABLY OLD ABNORMAL ECG Electronically Signed On 03-31-2017 16:36:07 SMOKE CONTROL SUPERVISOR by Shahid Medrano
[2017-03-22] MEDS ORDERED: VANCOMYCIN 750 MG in IV NORMAL SALINE 250ML 250 ML IV ONE (17:30)
[2017-03-22 19:42] VITALS: BP 114/68
[2017-03-22] MEDS ORDERED: VANCOMYCIN PER PHARMACY MC PRN (20:15)
[2017-03-22] MEDS: INSULIN DETEMIR 300 UNITS/3 ML INSULN.PEN. SQ SCH (21:55)
[2017-03-22] MEDS: HEPARIN PF for SUB-Q USE 5,000 UNIT/0.5 ML VIAL. SQ SCH (21:56)
[2017-03-22] MEDS: NORTRIPTYLINE 25 MG CAPSULE PO SCH (21:57)
[2017-03-22] MEDS: carBAMazepine XR 200 MG TAB.ER.12H PO SCH (21:57)
[2017-03-22] MEDS: MIRTAZAPINE 15 MG TABLET PO SCH (21:57)
[2017-03-22] MEDS: rOPINIRole 1 MG TABLET. PO SCH (21:57)
[2017-03-22] MEDS: MONTELUKAST 10 MG TABLET. PO SCH (21:57)
[2017-03-22] MEDS: TOPIRAMATE 25 MG TABLET. PO SCH (21:57)
[2017-03-22 22:44] VITALS: BP 114/72
[2017-03-22] MEDS: ALBUTEROL SULFATE 2.5 MG/3 ML NEBU. NEB PRN (23:06)
[2017-03-22] MEDS: IV NORMAL SALINE 1,000ML 1,000 ML IV SCH (23:06)
[2017-03-22] MEDS: clonazePAM 0.5 MG TABLET PO PRN (23:44)
[2017-03-22 23:48] VITALS: BP 126/58
[2017-03-23 05:03] VITALS: BP 118/86
[2017-03-23] MEDS: HEPARIN PF for SUB-Q USE 5,000 UNIT/0.5 ML VIAL. SQ SCH ×3 (05:33→21:11)
[2017-03-23 07:09] LABS: BASO # 0.2 x10^3/uL (0.0-0.2); BASO % 1 % (0-3); EOS # 0.7 x10^3/uL (0.0-0.7); EOS % 4 % (0-3); HEMATOCRIT 28.5 % (36.0-47.0); HEMOGLOBIN 9.4 g/dL (12.0-15.5); LYMPH % 53 % (24-48); MEAN CORPUSCULAR HEMOGLOBIN 31 pg (25-35); MEAN CORPUSCULAR HGB CONC 33 g/dL (31-37); MEAN CORPUSCULAR VOLUME 93 fL (79-100); MONO # 1.6 x10^3/uL (0.0-1.1); MONO % 9 % (0-9); NEUT # 5.6 x10^3uL (1.8-7.7); NEUT % 33 % (31-73); PLATELET COUNT 360 x10^3/uL (140-400); RED BLOOD COUNT 3.07 x10^6/uL (3.50-5.40); RED CELL DISTRIBUTION WIDTH 14.5 % (11.5-14.5); WHITE BLOOD COUNT 17.1 x10^3/uL (4.0-11.0)
[2017-03-23 07:21] LABS: ALBUMIN 2.7 g/dL (3.4-5.0); ALBUMIN/GLOBULIN RATIO 0.7 (1.0-1.7); CALCIUM 8.3 mg/dL (8.5-10.1); CREATININE 1.2 mg/dL (0.6-1.0); GFR 44.3; POTASSIUM 3.9 mmol/L (3.5-5.1); TOTAL BILIRUBIN 0.2 mg/dL (0.2-1.0); TOTAL PROTEIN 6.7 g/dL (6.4-8.2)
[2017-03-23] MEDS: PANTOPRAZOLE 40 MG TABLET. PO SCH (07:51)
[2017-03-23] MEDS: INSULIN ASPART 300 UNITS/3 ML INSULN.PEN SQ SCH ×3 (08:15→18:14)
[2017-03-23] MEDS: busPIRone 10 MG TABLET. PO SCH (09:38)
[2017-03-23] MEDS: TOPIRAMATE 25 MG TABLET. PO SCH ×2 (09:38→21:11)
[2017-03-23] MEDS: ASPIRIN ENTERIC COATED 81 MG TABLET.DR. PO SCH (09:38)
[2017-03-23] MEDS: FLUTICASONE 50MCG/NASAL SPRAY 16GM BOTTLE. NS SCH (09:38)
[2017-03-23] MEDS: DULoxetine HCL 60 MG CAPSULE.DR PO SCH (09:38)
[2017-03-23] MEDS: NORTRIPTYLINE 25 MG CAPSULE PO SCH ×3 (09:39→21:11)
[2017-03-23] MEDS: LISINOPRIL 5 MG TABLET. PO SCH (09:39)
[2017-03-23] MEDS: amLODIPine BESYLATE 5 MG TABLET PO SCH (09:39)
[2017-03-23] MEDS: INSULIN DETEMIR 300 UNITS/3 ML INSULN.PEN. SQ SCH ×2 (09:41→21:24)
[2017-03-23 10:41] VITALS: BP 119/63
[2017-03-23] MEDS: clonazePAM 0.5 MG TABLET PO PRN ×2 (11:48→21:12)
[2017-03-23 14:36] VITALS: BP 150/80
[2017-03-23] MEDS ORDERED: VANCOMYCIN 1 GM in IV NORMAL SALINE 250ML 250 ML IV SCH (17:00)
[2017-03-23 17:40] VITALS: BP 120/67
[2017-03-23] MEDS: IV NORMAL SALINE 1,000ML 1,000 ML IV SCH ×2 (18:15→23:10)
--- NOTE | 2017-03-23 19:23 | HP ---
ADMIT DATE: 03/22/2017 HISTORY OF PRESENT ILLNESS: A 71-year-old female admitted through the Emergency Room yesterday, came in with EMS with nausea, vomiting, and diarrhea for the past week. The patient has had 4 episodes of vomiting totally, a total of 2 episodes of diarrhea in the last week, lower abdominal cramping pain, episodic nonproductive cough with subjective fever, chills, generalized weakness, elevated lactic acid. The patient denies any chest pain, palpitation, or urinary symptoms. The patient states she has been sick and has been in contact with her , who has had similar problems. PAST MEDICAL AND SURGICAL HISTORY: Hypertension, hypercholesterolemia, diabetes, asthma, chronic kidney disease with Dr. Mendoza, chronic oxygen therapy as well. The patient has had tonsillectomy, headaches, cardiac problems, respiratory problem, COPD, pneumonia, oxygen dependent, sleep apnea, diverticulosis, hiatal hernia, abdominal surgeries, obesity, abdominal pain, nausea, vomiting, GERD, hysterectomy, multiple urinary tract infections, degenerative arthritis, spine stimulator for chronic pain, also depression. SOCIAL HISTORY: The patient did have smoking, but quit 30 years ago. Denies alcohol or drug use. Lives at home. The patient is a full code. FAMILY HISTORY: Father with hypertension, gallbladder problems in the mother, diabetes in the mother, depression in the father as well as cardiovascular disease in the father. ALLERGIES: GRAPEFRUIT, HYDROMORPHONE, METOCLOPRAMIDE, MORPHINE, DILANTIN, TEMAZEPAM, TRAZODONE AND AMBIEN. MEDICATIONS: Include Norvasc 5 mg a day, ascorbic acid, aspirin 81, Lipitor 10, B complex, Tessalon Perles, buspirone 10 mg daily, Tegretol-XR 200 mg q. 12 hours, vitamin D3, Klonopin 0.5 t.i.d., B12, Dexilant 1 capsule daily, docusate sodium, stool softeners, Cymbalta 60 mg daily, fluticasone nasal spray, NovoLog 16 units t.i.d., Levemir 80 units b.i.d., lisinopril 5 mg daily, metformin 1000 mg b.i.d., Remeron 30 mg daily, Singulair 10 mg daily, naproxen 500 b.i.d., nortriptyline 50 mg t.i.d., omega 3, Requip 1 mg at bedtime, Topamax 25 mg b.i.d. REVIEW OF SYSTEMS: Generally, nausea, vomiting, and diarrhea. Denies chest pain or shortness of breath as usual. PHYSICAL EXAMINATION: GENERAL: Pleasant white female, in moderate amount of distress. VITAL SIGNS: Blood pressure 120/64, respiratory rate 19, pulse 110, temperature 97.8. The patient is somewhat diaphoretic. HEENT: The patient's head was atraumatic, normocephalic. Eyes: PERRLA without jaundice. ____. Mouth and throat: Poor dentition. NECK: Supple without JVD or carotid bruits. No thyromegaly. LUNGS: Diminished throughout, poor movement of air. CARDIOVASCULAR: Regular sinus rhythm, S1, S2, without murmur, rub, thrill, or extra heart sounds. ABDOMEN: Soft, diffuse tenderness. No rebounding or guarding. Positive bowel sounds, no hepatosplenomegaly was noted. EXTREMITIES: No clubbing, cyanosis or edema. NEUROLOGIC: The patient was alert and oriented x 3. The patient did have an elevated lactic acid up to 5. She was placed on vancomycin and make further evaluation on her as indicated on that report. She apparently was extremely dehydrated and believed that the hydration helped the patient with that situation as well. LABORATORY DATA: In any case, the patient's chemistry showed a normal BUN, slightly elevated creatinine and GFR down to 44.3. Sugars are basically holding steady. White count was elevated to 17,000, hemoglobin 9.4 and ____ 28. IMPRESSION: Sepsis, probable gastroenteritis, dehydration, type 2 diabetes, morbid obesity, chronic obstructive pulmonary disease, on chronic oxygen. CT scan of abdomen and pelvis was basically ____ ventral hernias were basically unremarkable. There were multiple lytic lesions in the iliac, apparently seen unchanged since 2012, stable appearance, ventral hernias, otherwise, there were no other abnormalities noted. PLAN: The patient will be given IV fluids, IV antibiotic therapy. Make further evaluation on her as indicated. JAYMIE GE MD DR: MAURIZIO/luis angel JOB#: [id number] / [id number]
[2017-03-23 19:28] VITALS: BP 101/48
[2017-03-23] MEDS: ALBUTEROL SULFATE 2.5 MG/3 ML NEBU. NEB PRN (20:51)
[2017-03-23] MEDS: MONTELUKAST 10 MG TABLET. PO SCH (21:11)
[2017-03-23] MEDS: rOPINIRole 1 MG TABLET. PO SCH (21:11)
[2017-03-23] MEDS: MIRTAZAPINE 15 MG TABLET PO SCH (21:12)
[2017-03-23] MEDS: BENZONATATE 100 MG CAPSULE. PO PRN (21:12)
[2017-03-23] MEDS: carBAMazepine XR 200 MG TAB.ER.12H PO SCH (21:12)
[2017-03-23 22:56] VITALS: BP 126/66
[2017-03-24] MEDS: BENZONATATE 100 MG CAPSULE. PO PRN (04:11)
[2017-03-24] MEDS: HEPARIN PF for SUB-Q USE 5,000 UNIT/0.5 ML VIAL. SQ SCH ×3 (06:29→22:04)
[2017-03-24 06:32] VITALS: BP 119/55
[2017-03-24 06:34] LABS: CALCIUM 8.4 mg/dL (8.5-10.1); GFR 54.7; POTASSIUM 4.1 mmol/L (3.5-5.1)
[2017-03-24 06:36] LABS: BASO # 0.1 x10^3/uL (0.0-0.2); BASO % 0 % (0-3); EOS # 0.8 x10^3/uL (0.0-0.7); EOS % 5 % (0-3); HEMATOCRIT 26.4 % (36.0-47.0); HEMOGLOBIN 8.9 g/dL (12.0-15.5); LYMPH # 8.5 x10^3/uL (1.0-4.8); LYMPH % 52 % (24-48); MEAN CORPUSCULAR HEMOGLOBIN 31 pg (25-35); MEAN CORPUSCULAR HGB CONC 34 g/dL (31-37); MEAN CORPUSCULAR VOLUME 93 fL (79-100); MONO # 1.7 x10^3/uL (0.0-1.1); MONO % 10 % (0-9); NEUT # 5.4 x10^3uL (1.8-7.7); NEUT % 33 % (31-73); PLATELET COUNT 363 x10^3/uL (140-400); RED BLOOD COUNT 2.84 x10^6/uL (3.50-5.40); RED CELL DISTRIBUTION WIDTH 14.2 % (11.5-14.5); WHITE BLOOD COUNT 16.4 x10^3/uL (4.0-11.0)
[2017-03-24] MEDS: PANTOPRAZOLE 40 MG TABLET. PO SCH (07:55)
[2017-03-24 08:23] LABS: % BASOS 1 % (0-3); % EOS 3 % (0-5); % LYMPHS 56 % (24-48); % MONOS 4 % (0-10); % SEGS 36 % (35-66)
[2017-03-24 08:24] LABS: PLT ESTIMATE INCREASED (ADEQUATE); SCHISTOCYTES OCC
[2017-03-24 08:26] LABS: POLYCHROMASIA SLIGHT
[2017-03-24] MEDS: TOPIRAMATE 25 MG TABLET. PO SCH ×2 (08:30→22:02)
[2017-03-24] MEDS: FLUTICASONE 50MCG/NASAL SPRAY 16GM BOTTLE. NS SCH (08:30)
[2017-03-24] MEDS: ASPIRIN ENTERIC COATED 81 MG TABLET.DR. PO SCH (08:30)
[2017-03-24] MEDS: amLODIPine BESYLATE 5 MG TABLET PO SCH (08:33)
[2017-03-24] MEDS: busPIRone 10 MG TABLET. PO SCH (08:34)
[2017-03-24] MEDS: DULoxetine HCL 60 MG CAPSULE.DR PO SCH (08:34)
[2017-03-24] MEDS: LISINOPRIL 5 MG TABLET. PO SCH (08:34)
[2017-03-24] MEDS: NORTRIPTYLINE 25 MG CAPSULE PO SCH ×3 (08:35→22:02)
[2017-03-24] MEDS: INSULIN ASPART 300 UNITS/3 ML INSULN.PEN SQ SCH ×3 (08:44→18:29)
[2017-03-24] MEDS: INSULIN DETEMIR 300 UNITS/3 ML INSULN.PEN. SQ SCH ×2 (08:45→22:05)
[2017-03-24] MEDS: IV NORMAL SALINE 1,000ML 1,000 ML IV SCH ×2 (09:14→23:00)
[2017-03-24 11:04] VITALS: BP 114/59
[2017-03-24 15:53] VITALS: BP 109/63
[2017-03-24] MEDS ORDERED: VANCOMYCIN 1 GM in IV NORMAL SALINE 250ML 250 ML IV SCH (16:00)
[2017-03-24] MEDS: BENZONATATE 100 MG CAPSULE. PO SCH ×2 (19:37→22:02)
[2017-03-24 19:52] VITALS: BP 140/67
[2017-03-24] MEDS: IPRATRPIUM/ALBUTEROL 0.5/2.5MG 3 ML NEBU. NEB SCH (20:16)
[2017-03-24] MEDS: rOPINIRole 1 MG TABLET. PO SCH (22:01)
[2017-03-24] MEDS: MONTELUKAST 10 MG TABLET. PO SCH (22:01)
[2017-03-24] MEDS: MIRTAZAPINE 15 MG TABLET PO SCH (22:01)
[2017-03-24] MEDS: clonazePAM 0.5 MG TABLET PO PRN (22:01)
[2017-03-24] MEDS: carBAMazepine XR 200 MG TAB.ER.12H PO SCH (22:02)
[2017-03-24 23:05] VITALS: BP 139/67
[2017-03-25] VITALS (7 sets, daily range): BP systolic 114–151; BP diastolic 51–78
[2017-03-25] MEDS: IPRATRPIUM/ALBUTEROL 0.5/2.5MG 3 ML NEBU. NEB SCH ×4 (05:27→20:38)
[2017-03-25] MEDS: HEPARIN PF for SUB-Q USE 5,000 UNIT/0.5 ML VIAL. SQ SCH ×3 (06:31→21:42)
[2017-03-25] MEDS: PANTOPRAZOLE 40 MG TABLET. PO SCH (08:08)
[2017-03-25] MEDS: INSULIN ASPART 300 UNITS/3 ML INSULN.PEN SQ SCH ×3 (08:10→17:40)
[2017-03-25 08:15] LABS: BASO # 0.1 x10^3/uL (0.0-0.2); BASO % 0 % (0-3); EOS # 0.8 x10^3/uL (0.0-0.7); EOS % 4 % (0-3); HEMATOCRIT 28.4 % (36.0-47.0); HEMOGLOBIN 9.6 g/dL (12.0-15.5); LYMPH # 8.7 x10^3/uL (1.0-4.8); LYMPH % 51 % (24-48); MEAN CORPUSCULAR HEMOGLOBIN 31 pg (25-35); MEAN CORPUSCULAR HGB CONC 34 g/dL (31-37); MEAN CORPUSCULAR VOLUME 93 fL (79-100); MONO # 1.5 x10^3/uL (0.0-1.1); MONO % 9 % (0-9); NEUT # 6.2 x10^3uL (1.8-7.7); NEUT % 36 % (31-73); PLATELET COUNT 383 x10^3/uL (140-400); RED BLOOD COUNT 3.06 x10^6/uL (3.50-5.40); RED CELL DISTRIBUTION WIDTH 14.2 % (11.5-14.5); WHITE BLOOD COUNT 17.3 x10^3/uL (4.0-11.0)
[2017-03-25 08:23] LABS: CALCIUM 8.9 mg/dL (8.5-10.1); GFR 54.7; POTASSIUM 4.2 mmol/L (3.5-5.1)
[2017-03-25] MEDS: ASPIRIN ENTERIC COATED 81 MG TABLET.DR. PO SCH (08:43)
[2017-03-25] MEDS: DULoxetine HCL 60 MG CAPSULE.DR PO SCH (08:43)
[2017-03-25] MEDS: FLUTICASONE 50MCG/NASAL SPRAY 16GM BOTTLE. NS SCH (08:43)
[2017-03-25] MEDS: TOPIRAMATE 25 MG TABLET. PO SCH ×2 (08:45→21:41)
[2017-03-25] MEDS: BENZONATATE 100 MG CAPSULE. PO SCH ×3 (08:45→21:40)
[2017-03-25] MEDS: LISINOPRIL 5 MG TABLET. PO SCH (08:46)
[2017-03-25] MEDS: amLODIPine BESYLATE 5 MG TABLET PO SCH (08:46)
[2017-03-25] MEDS: busPIRone 10 MG TABLET. PO SCH (08:48)
[2017-03-25] MEDS: NORTRIPTYLINE 25 MG CAPSULE PO SCH ×3 (08:48→21:40)
[2017-03-25] MEDS: INSULIN DETEMIR 300 UNITS/3 ML INSULN.PEN. SQ SCH ×2 (08:54→21:43)
[2017-03-25] MEDS ORDERED: IOHEXOL 300 MG/ML 75 ML VIAL. IV ONE (10:30)
--- NOTE | 2017-03-25 12:13 | RAD ---
PQRS Compliance Statement: One or more of the following individualized dose reduction techniques were utilized for this examination: 1. Automated exposure control 2. Adjustment of the mA and/or kV according to patient size 3. Use of iterative reconstruction technique CT CHEST WITH CONTRAST, PULMONARY ANGIOGRAM. CT ABDOMEN PELVIS WITH CONTRAST History: LLQ pain, shortness of breath. History of COPD. Comparison: CT chest without contrast 12/07/2016. CT abdomen and pelvis without contrast, 3 days ago. Technique: Helical CT of the chest was performed after the administration of 70 cc of Omnipaque 300 intravenous contrast according to PE protocol. 3-D MIP coronal reconstruction was performed to better evaluate the pulmonary arteries. Helical CT imaging continued in the abdomen and pelvis. Findings: Pulmonary arteries are adequately opacified. There is no evidence of pulmonary embolism. Subsegmental pulmonary arteries in the bilateral lower lobes are not well evaluated. There is no thoracic aortic dissection. Great vessels normal caliber. Thyroid is symmetric. No adenopathy in the chest. Coronary artery disease. Cardiac size is mildly enlarged. No pericardial effusion. The central airways are patent. There is respiratory motion artifact. Mild consolidations and linear opacities are seen in the bilateral lower lobes mainly posteriorly. Finding unchanged from prior study and is probably scarring or chronic atelectasis. Cholecystectomy. Liver, pancreas, and adrenal glands are normal. The spleen is absent. No hydronephrosis. Atherosclerotic abdominal aorta. Unchanged ventral hernias containing small bowel and colon. No bowel obstruction. No dilated small bowel. No evidence of colitis. No secondary signs of appendicitis. No abdominal adenopathy or free fluid. Urinary bladder is distended, otherwise normal. Uterus surgically absent. No pelvic free fluid. There is right upper gluteal spinal simulator pack. Leads are posterior to T9 vertebral body. L2 vertebral body hemangioma. IMPRESSION: 1. There is no CT evidence of pulmonary embolus. Subsegmental pulmonary arteries in the lower lobes are not well evaluated due to respiratory motion. 2. There is stable scarring or chronic atelectasis in the bilateral lower lobes. 3. No acute abdominal or pelvic abnormality. 4. There are multiple ventral hernias containing small bowel and colon.
[2017-03-25] MEDS: IV NORMAL SALINE 1,000ML 1,000 ML IV SCH (15:10)
[2017-03-25] MEDS: MONTELUKAST 10 MG TABLET. PO SCH (21:40)
[2017-03-25] MEDS: carBAMazepine XR 200 MG TAB.ER.12H PO SCH (21:40)
[2017-03-25] MEDS: rOPINIRole 1 MG TABLET. PO SCH (21:40)
[2017-03-25] MEDS: MIRTAZAPINE 15 MG TABLET PO SCH (21:40)
--- NOTE | 2017-03-25 23:50 | PN ---
DATE: LOCATION: [facility] ICU bed #4 ____. SUBJECTIVE: This patient came in with severe abdominal pain, nausea, vomiting, and diarrhea. She had an elevated white count of 17,000. The patient was having some trouble breathing, put her on some breathing treatments. The patient has cough and bronchospasms as well. The diarrhea still is present, although stools have been negative for any type of abnormality. The patient seems to be a little bit better hydrated. Labs all have improved. OBJECTIVE: LUNGS: Otherwise, the patient's lungs are diminished throughout, ____ been, but she still has coarse breath sounds and she is on chronic oxygen therapy. CARDIOVASCULAR: Regular sinus rhythm. ABDOMEN: Soft, diffuse tenderness. No rebounding or guarding. Positive bowel sounds, no hepatosplenomegaly was noted. EXTREMITIES: No clubbing, cyanosis, or edema. IMPRESSION: Leukocytosis, gastroenteritis, dehydration, chronic obstructive pulmonary disease, oxygen dependency. We will go ahead and continue with present hydration. Continue to monitor her diarrhea, make further evaluation of electrolytes and so forth and give her some breathing treatments since she was having trouble breathing. JAYMIE GE MD DR: MAURIZIO/luis angel JOB#: [id number] / [id number]
[2017-03-26] MEDS: IV NORMAL SALINE 1,000ML 1,000 ML IV SCH (02:30)
[2017-03-26 05:03] VITALS: BP 135/69
[2017-03-26] MEDS: HEPARIN PF for SUB-Q USE 5,000 UNIT/0.5 ML VIAL. SQ SCH ×3 (05:38→22:06)
[2017-03-26] MEDS: IPRATRPIUM/ALBUTEROL 0.5/2.5MG 3 ML NEBU. NEB SCH ×4 (05:49→20:13)
[2017-03-26 07:17] LABS: BASO # 0.1 x10^3/uL (0.0-0.2); BASO % 1 % (0-3); EOS # 0.7 x10^3/uL (0.0-0.7); EOS % 4 % (0-3); HEMATOCRIT 28.3 % (36.0-47.0); HEMOGLOBIN 9.6 g/dL (12.0-15.5); LYMPH # 8.1 x10^3/uL (1.0-4.8); LYMPH % 44 % (24-48); MEAN CORPUSCULAR HEMOGLOBIN 31 pg (25-35); MEAN CORPUSCULAR HGB CONC 34 g/dL (31-37); MEAN CORPUSCULAR VOLUME 92 fL (79-100); MONO # 1.9 x10^3/uL (0.0-1.1); MONO % 10 % (0-9); NEUT # 7.7 x10^3uL (1.8-7.7); NEUT % 42 % (31-73); PLATELET COUNT 396 x10^3/uL (140-400); RED BLOOD COUNT 3.09 x10^6/uL (3.50-5.40); RED CELL DISTRIBUTION WIDTH 14.1 % (11.5-14.5); WHITE BLOOD COUNT 18.6 x10^3/uL (4.0-11.0)
[2017-03-26 07:43] LABS: CALCIUM 9.3 mg/dL (8.5-10.1); CREATININE 0.9 mg/dL (0.6-1.0); POTASSIUM 4.2 mmol/L (3.5-5.1)
[2017-03-26 07:51] LABS: GFR 61.7
[2017-03-26] MEDS: INSULIN ASPART 300 UNITS/3 ML INSULN.PEN SQ SCH ×3 (08:37→17:19)
[2017-03-26] MEDS: INSULIN DETEMIR 300 UNITS/3 ML INSULN.PEN. SQ SCH ×2 (08:37→21:13)
[2017-03-26] MEDS: PANTOPRAZOLE 40 MG TABLET. PO SCH (08:43)
[2017-03-26] MEDS: LISINOPRIL 5 MG TABLET. PO SCH (08:43)
[2017-03-26] MEDS: DULoxetine HCL 60 MG CAPSULE.DR PO SCH (08:43)
[2017-03-26] MEDS: TOPIRAMATE 25 MG TABLET. PO SCH ×2 (08:44→21:14)
[2017-03-26] MEDS: amLODIPine BESYLATE 5 MG TABLET PO SCH (08:44)
[2017-03-26] MEDS: ASPIRIN ENTERIC COATED 81 MG TABLET.DR. PO SCH (08:44)
[2017-03-26] MEDS: NORTRIPTYLINE 25 MG CAPSULE PO SCH ×3 (08:44→21:14)
[2017-03-26] MEDS: BENZONATATE 100 MG CAPSULE. PO SCH ×3 (08:44→21:14)
[2017-03-26] MEDS: busPIRone 10 MG TABLET. PO SCH (08:44)
[2017-03-26] MEDS: FLUTICASONE 50MCG/NASAL SPRAY 16GM BOTTLE. NS SCH (08:45)
[2017-03-26 09:06] LABS: % BANDS 1 % (0-9); % EOS 4 % (0-5); % LYMPHS 43 % (24-48); % MONOS 7 % (0-10); % SEGS 45 % (35-66); PLT ESTIMATE INCREASED (ADEQUATE)
[2017-03-26 09:07] LABS: POLYCHROMASIA SLIGHT
[2017-03-26 09:08] LABS: OVALOCYTES OCC
[2017-03-26] MEDS ORDERED: HYDROcodone/APAP 5/325MG 1 TAB TABLET PO PRN (10:45)
[2017-03-26 11:36] VITALS: BP 146/69
--- NOTE | 2017-03-26 14:47 | PN ---
DATE: SUBJECTIVE: The patient in with gastroenteritis, sepsis. The patient has been resting fairly comfortably here. Her temperatures remained stable, blood pressure 150/50, respiratory 18, pulse 87, afebrile, oxygen saturation good. The patient was complaining of left lower quadrant pain, had some diaphoresis this morning, and so a CT scan was performed. Her white count is still elevated at 17,000. She does have a switch on her lymphocytes, so now that there preponderant could be from a viral infection. Otherwise, no lymphadenopathy, no rashes noted. No joint achiness. In any case, the patient had pain in the left side. CT scan was unremarkable. PHYSICAL EXAMINATION: VITAL SIGNS: The patient's vital signs as noted. LUNGS: Clear. CARDIOVASCULAR: Regular sinus rhythm. ABDOMEN: Soft, diffuse tenderness in the mid to left lower quadrant area. No rebounding, slight guarding. EXTREMITIES: No clubbing or cyanosis, no edema. NEUROLOGIC: The patient was alert and oriented x 3. LABORATORY DATA: White count of 17,000. The source of this is still a mystery of somewhat. IMPRESSION: Gastroenteritis, dehydration, abdominal pain. PLAN: Continue to monitor the patient accordingly, make further evaluation on her as indicated, with fluids and hopefully ready for discharge ____. JAYMIE GE MD DR: MAURIZIO/luis angel JOB#: [id number] / [id number]
[2017-03-26 16:30] VITALS: BP 111/60
[2017-03-26 19:36] VITALS: BP 100/52
[2017-03-26] MEDS: rOPINIRole 1 MG TABLET. PO SCH (21:14)
[2017-03-26] MEDS: MIRTAZAPINE 15 MG TABLET PO SCH (21:14)
[2017-03-26] MEDS: MONTELUKAST 10 MG TABLET. PO SCH (21:15)
[2017-03-26] MEDS: carBAMazepine XR 200 MG TAB.ER.12H PO SCH (21:15)
[2017-03-26 22:42] VITALS: BP 151/67
--- NOTE | 2017-03-27 00:40 | PN ---
DATE: SUBJECTIVE: A 71-year-old female in with abdominal pain, nausea, vomiting, diarrhea. The patient still has extremely high white count of almost 19,000; hemoglobin 9.6 and hematocrit 28, stable. The patient's lymphocytes are going down. The patient otherwise seems to be resting fairly comfortably, making fairly good progress overall. The patient's urine cultures were negative. OBJECTIVE: VITAL SIGNS: Otherwise, the patient's blood pressure 130/70, respiratory rate 20, pulse 90, afebrile. GENERAL: The patient alert and oriented. LUNGS: Clear. CARDIOVASCULAR: Stable. ABDOMEN: The patient has tenderness left rib, left upper quadrant area. The patient is having difficulty eating. Pain medication and alike. Continue to monitor accordingly. The patient's CTA was basically unremarkable, chronic atelectasis noted. Otherwise, the patient is resting comfortably. He will continue to be monitored carefully and make further evaluation on her as indicated. IMPRESSION: Therefore, acute exacerbation of abdominal pain, diarrhea, gastroenteritis. PLAN: Continue to monitor the patient accordingly, make further evaluation per those results. Otherwise, we will continue to try pain management, make sure she is able eating, drinking, and hopefully discharge her soon. JAYMIE GE MD DR: MAURIZIO/luis angel JOB#: [id number] / [id number]
[2017-03-27 05:09] VITALS: BP 113/69
[2017-03-27] MEDS: IPRATRPIUM/ALBUTEROL 0.5/2.5MG 3 ML NEBU. NEB SCH ×2 (05:21→09:54)
[2017-03-27] MEDS: HEPARIN PF for SUB-Q USE 5,000 UNIT/0.5 ML VIAL. SQ SCH (06:10)
[2017-03-27] MEDS: ASPIRIN ENTERIC COATED 81 MG TABLET.DR. PO SCH (08:35)
[2017-03-27] MEDS: BENZONATATE 100 MG CAPSULE. PO SCH (08:35)
[2017-03-27] MEDS: busPIRone 10 MG TABLET. PO SCH (08:35)
[2017-03-27] MEDS: LISINOPRIL 5 MG TABLET. PO SCH (08:35)
[2017-03-27] MEDS: TOPIRAMATE 25 MG TABLET. PO SCH (08:35)
[2017-03-27] MEDS: DULoxetine HCL 60 MG CAPSULE.DR PO SCH (08:35)
[2017-03-27] MEDS: PANTOPRAZOLE 40 MG TABLET. PO SCH (08:35)
[2017-03-27] MEDS: FLUTICASONE 50MCG/NASAL SPRAY 16GM BOTTLE. NS SCH (08:36)
[2017-03-27] MEDS: amLODIPine BESYLATE 5 MG TABLET PO SCH (08:36)
[2017-03-27] MEDS: NORTRIPTYLINE 25 MG CAPSULE PO SCH (08:37)
[2017-03-27] MEDS: INSULIN ASPART 300 UNITS/3 ML INSULN.PEN SQ SCH ×2 (08:46→12:20)
[2017-03-27] MEDS: INSULIN DETEMIR 300 UNITS/3 ML INSULN.PEN. SQ SCH (08:46)
[2017-03-27 10:33] VITALS: BP 119/54
--- NOTE | 2017-03-27 17:56 | DS ---
DATE OF DISCHARGE: 03/27/2017 HOSPITAL COURSE: A 71-year-old female came in initially through the Emergency Room on 03/23/2017, discharged 03/27/2017. The patient has been having episodes of nausea, vomiting, unable to keep anything down. Also, was nonproductive cough with fever, chills and generalized weakness. The patient had an elevated lactic acid. She also was noted to have a white count that was extremely elevated in the range of 16,000, but was as high as 18,000. There was no left shift. The patient had chronic anemia. She did show some signs of dehydration. The patient's blood sugars were elevated. Her lactic acid was as high as 5.5. Her potassium was also noted to be elevated at first as well. In any case, the patient was placed initially on IV antibiotic therapy. Workup did not really show any particular type of a source of infection. She had a CTA of her abdomen as well as her chest and nothing was found of any significance there. The patient also was noted to have some ventral hernias, but did not complain obviously of abdominal pain. The patient made good progress and despite her being on antibiotics, her white count actually went up and when taken off her white count remained stable, so we did not feel it was an infectious etiology and she will be followed up by Hematology as an outpatient. There were no complications during the hospital administration and the patient made good progress. Her urine cultures were negative. IMPRESSION: Sepsis, gastroenteritis, dehydration, abdominal pain, type 2 diabetes, morbid obesity, chronic obstructive pulmonary disease, possible gastroenteritis, hyperkalemia, [id number] protein malnutrition. PLAN: The patient will be placed on a diabetic diet, decreased activity. Continue her breathing treatments at home and make further evaluation on her as an outpatient. JAYMIE GE MD DR: MAURIZIO/luis angel JOB#: [id number] / [id number]
== END 2017-03-27 13:20 | disposition home or self-care (01) | DRG 872 ==
LOC: ER 13:15 → 1 SOUTH 15:19 → ER 16:45 → ICU 03-23 18:20 → 1 SOUTH 03-25 11:35
PROVIDERS: ADMIT Family Medicine; ATTEND Family Medicine
DX: A41.9 Sepsis, unspecified organism (principal); N17.9 Acute kidney failure, unspecified; E44.0 Moderate protein-calorie malnutrition; E11.22 Type 2 diabetes mellitus with diabetic chronic kidney disease; N39.0 Urinary tract infection, site not specified; E11.65 Type 2 diabetes mellitus with hyperglycemia; E87.5 Hyperkalemia; Z99.81 Dependence on supplemental oxygen; D64.9 Anemia, unspecified; E66.01 Morbid (severe) obesity due to excess calories; E78.00 Pure hypercholesterolemia, unspecified; E86.0 Dehydration; R65.20 Severe sepsis without septic shock; G47.30 Sleep apnea, unspecified; I12.9 Hypertensive chronic kidney disease with stage 1 through stage 4 chronic kidney disease, or unspecified chronic kidney disease; J44.9 Chronic obstructive pulmonary disease, unspecified; K21.9 Gastro-esophageal reflux disease without esophagitis; K43.9 Ventral hernia without obstruction or gangrene; M19.90 Unspecified osteoarthritis, unspecified site; K57.90 Diverticulosis of intestine, part unspecified, without perforation or abscess without bleeding; G89.29 Other chronic pain; F32.9 Major depressive disorder, single episode, unspecified; K52.9 Noninfective gastroenteritis and colitis, unspecified; Z81.8 Family history of other mental and behavioral disorders; Z82.49 Family history of ischemic heart disease and other diseases of the circulatory system; Z83.3 Family history of diabetes mellitus; Z87.440 Personal history of urinary (tract) infections; Z87.891 Personal history of nicotine dependence; Z90.710 Acquired absence of both cervix and uterus; Z87.01 Personal history of pneumonia (recurrent); Z90.49 Acquired absence of other specified parts of digestive tract; Z88.6 Allergy status to analgesic agent; Z88.8 Allergy status to other drugs, medicaments and biological substances; Z91.018 Allergy to other foods; Z79.4 Long term (current) use of insulin; Z68.35 Body mass index [BMI] 35.0-35.9, adult; N18.3 Chronic kidney disease, stage 3 (moderate)
CPT/HCPCS: 36415; 71010; 71275; 74174; 74176; 80048; 80053; 81001; 82947; 83605; 83690; 83880; 84484; 85007; 85025; 87040; 87086; 87804; 93005; 94640; 94760; 96365; 96368; 96375; J1815; J1956; J2405; J2543; J3370; J7040; J7050; J7613; J7620; Q9967; 97530; 99291-25; J7030

== ENCOUNTER 2017-06-03 17:23 | Inpatient (IN) | payer MEDICARE, OTHER ==
[~2017-06-03] VITALS: Ht 144.8 cm; Wt 69.5 kg
[~2017-06-03 17:23] MED LIST changes: -FERR-26 PO; +FERR325T14 PO; +NAPR-514 PO; -NAPR500T4 PO
[2017-06-03] MEDS ORDERED: IV NORMAL SALINE 1,000ML 1,000 ML IV ONE (18:30)
[2017-06-03] MEDS ORDERED: ONDANSETRON PF 4 MG/2 ML VIAL. IV ONE (18:30)
[2017-06-03 18:52] LABS: BASO # 0.2 x10^3/uL (0.0-0.2); BASO % 1 % (0-3); EOS # 1.3 x10^3/uL (0.0-0.7); EOS % 7 % (0-3); HEMATOCRIT 33.3 % (36.0-47.0); HEMOGLOBIN 10.8 g/dL (12.0-15.5); LYMPH # 6.8 x10^3/uL (1.0-4.8); LYMPH % 35 % (24-48); MEAN CORPUSCULAR HEMOGLOBIN 31 pg (25-35); MEAN CORPUSCULAR HGB CONC 32 g/dL (31-37); MEAN CORPUSCULAR VOLUME 95 fL (79-100); MONO # 1.5 x10^3/uL (0.0-1.1); MONO % 8 % (0-9); NEUT # 9.5 x10^3uL (1.8-7.7); NEUT % 49 % (31-73); PLATELET COUNT 414 x10^3/uL (140-400); RED BLOOD COUNT 3.51 x10^6/uL (3.50-5.40); RED CELL DISTRIBUTION WIDTH 14.1 % (11.5-14.5); WHITE BLOOD COUNT 19.2 x10^3/uL (4.0-11.0)
[2017-06-03 19:01] LABS: CALCIUM 9.3 mg/dL (8.5-10.1); CREATININE 2.1 mg/dL (0.6-1.0); GFR 23.2; MAGNESIUM 1.6 mg/dL (1.8-2.4); POTASSIUM 5.4 mmol/L (3.5-5.1)
[2017-06-03] MEDS ORDERED: MAGNESIUM SULFATE 1GM 100 ML IV ONE (19:15)
[2017-06-03] MEDS ORDERED: cefTRIAXone IV Push 1 GM VIAL. IVP ONE (19:45)
--- NOTE | 2017-06-03 19:54 | PHYS DOC ---
Past History Past Medical History: Cancer, COPD, Depression, Diabetes, High Cholesterol, Hypertension Past Surgical History: Cholecystectomy, Hysterectomy, Spleenectomy, Tonsillectomy, Other Smoking: Non-smoker Alcohol Use: Sober Drug Use: None Adult General Chief Complaint Chief Complaint: NAUSEA/VOMITING/DIARRHEA HPI HPI Patient is a 71 year old F who presents with nausea/vomiting and diarrhea over the past 3-4 days. Dian was diagnosed with a urinary tract infection 3 days ago and started on antibiotic. At that time she describes right flank pain associated with nausea and vomiting. She vomited multiple times yesterday but only vomited once today. She feels that her flank pain has improved. She feels that the flank pain is improved since she used a topical pain medication. She denies any other associated symptoms at this time. She denies any exacerbating or relieving factors. She is accompanied by her . She has multiple chronic medical problems. They both state that when she has had similar symptoms previously she did require admission for IV antibiotics. Review of Systems Review of Systems Constitutional: Denies fever or chills [] Eyes: Denies change in visual acuity, redness, or eye pain [] HENT: Denies nasal congestion or sore throat [] Respiratory: Denies cough or shortness of breath [] Cardiovascular: No additional information not addressed in HPI [] GI: Negative except history of present illness : Negative except history of present illness Musculoskeletal: Denies back pain or joint pain [] Integument: Denies rash or skin lesions [] Neurologic: Denies headache, focal weakness or sensory changes [] Endocrine: Denies polyuria or polydipsia [] All other systems were reviewed and found to be within normal limits, except as documented in this note. Family History Family History No pertinent family medical history was reported Current Medications Current Medications Current medications were reviewed Current Medications Medications (Trade) Dose Ordered Sig/Kristin Start Time Stop Time Status Last Admin Dose Admin Ceftriaxone Sodium 1 gm/ Sodium Chloride 50 ml @ 100 mls/hr 1X ONCE 06/03/17 19:30 06/03/17 19:59 UNV Ceftriaxone Sodium (Rocephin) 1 gm 1X ONCE 06/03/17 19:45 06/03/17 19:46 DC Magnesium Sulfate 100 ml @ 100 mls/hr 1X ONCE 06/03/17 19:15 06/03/17 20:14 06/03/17 19:34 100 MLS/HR Ondansetron HCl (Zofran) 4 mg 1X ONCE 06/03/17 18:30 06/03/17 18:31 DC 06/03/17 18:38 4 MG Sodium Chloride 1,000 ml @ 1,000 mls/hr 1X ONCE 06/03/17 18:30 06/03/17 19:29 DC 06/03/17 18:38 1,000 MLS/HR Allergies Allergies Allergies Coded Allergies Type Severity Reaction Last Updated Verified grapefruit Allergy Intermediate 12/19/14 Yes hydromorphone Allergy Intermediate 12/19/14 Yes metoclopramide Allergy Intermediate 09/03/14 Yes morphine Allergy Intermediate 09/03/14 Yes phenytoin Allergy Intermediate 09/03/14 Yes temazepam Allergy Intermediate 12/19/14 Yes trazodone Allergy Intermediate 09/03/14 Yes zolpidem Allergy Intermediate 03/24/17 Yes Physical Exam Physical Exam Constitutional: Well developed, well nourished, mild distress, non-toxic appearance. [] HENT: Normocephalic, atraumatic, Eyes: EOMI, conjunctiva normal, no discharge. [] Neck: Normal range of motion, no tenderness, supple, no stridor. [] Cardiovascular:Heart rate regular rhythm, Lungs & Thorax: Bilateral breath sounds clear to auscultation [] Abdomen: Bowel sounds normal, soft, no masses, no pulsatile masses. [] Mild right flank pain noted Skin: Warm, dry, no erythema, no rash. [] Back: No tenderness, no CVA tenderness. [] Extremities: No tenderness, no cyanosis, no clubbing, ROM intact, no edema. [] Neurologic: Alert and oriented X 3, normal motor function, normal sensory function, no focal deficits noted. [] Psychologic: Affect normal, judgement normal, mood normal. [] Current Patient Data Vital Signs Vital Signs Date Time Temp Pulse Resp B/P (MAP) Pulse Ox O2 Delivery O2 Flow Rate FiO2 06/03/17 18:00 98.2 89 16 99 Room Air Lab Results Laboratory Tests Test 06/03/17 18:30 06/03/17 19:26 06/03/17 20:38 White Blood Count 19.2 x10^3/uL (4.0-11.0) Red Blood Count 3.51 x10^6/uL (3.50-5.40) Hemoglobin 10.8 g/dL (12.0-15.5) Hematocrit 33.3 % (36.0-47.0) Mean Corpuscular Volume 95 fL (79-100) Mean Corpuscular Hemoglobin 31 pg (25-35) Mean Corpuscular Hemoglobin Concent 32 g/dL (31-37) Red Cell Distribution Width 14.1 % (11.5-14.5) Platelet Count 414 x10^3/uL (140-400) Neutrophils (%) (Auto) 49 % (31-73) Lymphocytes (%) (Auto) 35 % (24-48) Monocytes (%) (Auto) 8 % (0-9) Eosinophils (%) (Auto) 7 % (0-3) Basophils (%) (Auto) 1 % (0-3) Neutrophils # (Auto) 9.5 x10^3uL (1.8-7.7) Lymphocytes # (Auto) 6.8 x10^3/uL (1.0-4.8) Monocytes # (Auto) 1.5 x10^3/uL (0.0-1.1) Eosinophils # (Auto) 1.3 x10^3/uL (0.0-0.7) Basophils # (Auto) 0.2 x10^3/uL (0.0-0.2) Segmented Neutrophils % 51 % (35-66) Lymphocytes % 38 % (24-48) Monocytes % 4 % (0-10) Eosinophils % 5 % (0-5) Basophils % 2 % (0-3) Platelet Estimate Increased (ADEQUATE) Large Platelets Occ Polychromasia Slight Ovalocytes Occ Crenated Cell Present Sodium Level 132 mmol/L (136-145) Potassium Level 5.4 mmol/L (3.5-5.1) Chloride Level 101 mmol/L (98-107) Carbon Dioxide Level 17 mmol/L (21-32) Anion Gap 14 (6-14) Blood Urea Nitrogen 43 mg/dL (7-20) Creatinine 2.1 mg/dL (0.6-1.0) Estimated GFR (Cockcroft-Gault) 23.2 Glucose Level 197 mg/dL (70-99) Calcium Level 9.3 mg/dL (8.5-10.1) Magnesium Level 1.6 mg/dL (1.8-2.4) Lactic Acid Level 1.6 mmol/L (0.4-2.0) Urine Collection Type Unknown Urine Color Yellow Urine Clarity Clear Urine pH 5.0 Urine Specific [place] 1.020 Urine Protein Neg (NEG-TRACE) Urine Glucose (UA) Neg mg/dL (NEG) Urine Ketones (Stick) Neg mg/dL (NEG) Urine Blood Neg (NEG) Urine Nitrite Neg (NEG) Urine Bilirubin Small (NEG) Urine Urobilinogen Dipstick 0.2 mg/dL (0.2 mg/dL) Urine Leukocyte Esterase Small (NEG) Urine RBC 0 /HPF (0-2) Urine WBC 5-10 /HPF (0-4) Urine Squamous Epithelial Cells Occ /LPF Urine Bacteria 0 /HPF (0-FEW) Urine Mucus Slight /LPF Laboratory Tests Test 06/03/17 18:30 White Blood Count 19.2 x10^3/uL (4.0-11.0) H Red Blood Count 3.51 x10^6/uL (3.50-5.40) Hemoglobin 10.8 g/dL (12.0-15.5) L Hematocrit 33.3 % (36.0-47.0) L Mean Corpuscular Volume 95 fL (79-100) Mean Corpuscular Hemoglobin 31 pg (25-35) Mean Corpuscular Hemoglobin Concent 32 g/dL (31-37) Red Cell Distribution Width 14.1 % (11.5-14.5) Platelet Count 414 x10^3/uL (140-400) H Neutrophils (%) (Auto) 49 % (31-73) Lymphocytes (%) (Auto) 35 % (24-48) Monocytes (%) (Auto) 8 % (0-9) Eosinophils (%) (Auto) 7 % (0-3) H Basophils (%) (Auto) 1 % (0-3) Neutrophils # (Auto) 9.5 x10^3uL (1.8-7.7) H Lymphocytes # (Auto) 6.8 x10^3/uL (1.0-4.8) H Monocytes # (Auto) 1.5 x10^3/uL (0.0-1.1) H Eosinophils # (Auto) 1.3 x10^3/uL (0.0-0.7) H Basophils # (Auto) 0.2 x10^3/uL (0.0-0.2) Platelet Estimate Pending Sodium Level 132 mmol/L (136-145) L Potassium Level 5.4 mmol/L (3.5-5.1) H Chloride Level 101 mmol/L (98-107) Carbon Dioxide Level 17 mmol/L (21-32) L Anion Gap 14 (6-14) Blood Urea Nitrogen 43 mg/dL (7-20) H Creatinine 2.1 mg/dL (0.6-1.0) H Estimated GFR (Cockcroft-Gault) 23.2 Glucose Level 197 mg/dL (70-99) H Calcium Level 9.3 mg/dL (8.5-10.1) Magnesium Level 1.6 mg/dL (1.8-2.4) L EKG EKG Normal sinus rhythm, normal QRS interval, no ST abnormalities, peak T waves noted Radiology/Procedures Radiology/Procedures [] Course & Med Decision Making Course & Med Decision Making Pertinent Labs and Imaging studies reviewed. (See chart for details) [] Dragon Disclaimer Dragon Disclaimer This electronic medical record was generated, in whole or in part, using a voice recognition dictation system. Departure Departure: Impression: Primary Impression: Hyperkalemia Additional Impressions: Hypomagnesemia Acute kidney failure UTI (urinary tract infection) Disposition: ADMITTED INPATIENT Admitting Physician: Domonique Power Condition: STABLE Referrals: JAYMIE GE MD (PCP) Problem Qualifiers Additional Impressions: Acute kidney failure Acute renal failure type: unspecified Qualified Codes: N17.9 - Acute kidney failure, unspecified UTI (urinary tract infection) Urinary tract infection type: site unspecified JAYMEI HO MD Jun 03, 2017 19:54
[2017-06-03 21:10] LABS: BACTERIA,URINE 0 /HPF (0-FEW); BILIRUBIN,URINE SMALL (NEG); CLARITY,URINE CLEAR; COLOR,URINE YELLOW; GLUCOSE,URINE NEG (NEG); NITRITE,URINE NEG (NEG); RBC,URINE 0 /HPF (0-2); SQUAMOUS EPITHELIAL CELL,UR OCC /LPF; UROBILINOGEN,URINE 0.2 mg/dL (0.2 mg/dL)
[2017-06-03 21:49] VITALS: BP 134/78
[2017-06-03 22:33] LABS: % BASOS 2 % (0-3); % EOS 5 % (0-5); % LYMPHS 38 % (24-48); % MONOS 4 % (0-10); % SEGS 51 % (35-66)
[2017-06-03 22:37] LABS: OVALOCYTES OCC; PLT ESTIMATE INCREASED (ADEQUATE); POLYCHROMASIA SLIGHT
[2017-06-04] MEDS ORDERED: BUPR150T8 PO ×2 (01:25)
[2017-06-04] MEDS ORDERED: GABA-586 PO (01:25)
[2017-06-04] MEDS ORDERED: DICL100G18 TP (01:25)
[2017-06-04] MEDS ORDERED: CYCL-331 PO (01:25)
[2017-06-04] MEDS ORDERED: ONDA4TAB12 PO (01:25)
[2017-06-04] MEDS ORDERED: ASCO500T2 PO (01:25)
[2017-06-04] MEDS ORDERED: METO50TA6 PO (01:25)
[2017-06-04] MEDS ORDERED: TRAM50TA PO (01:25)
[2017-06-04] MEDS ORDERED: PROM25TA10 PO (01:25)
[2017-06-04] MEDS ORDERED: ONDA4TAB11 PO (01:25)
[2017-06-04] MEDS ORDERED: ALBU8.5H8 INH (01:25)
[2017-06-04] MEDS ORDERED: CETI10TA16 PO (01:25)
[2017-06-04] MEDS ORDERED: LOSA1TAB22 PO ×2 (01:25)
[2017-06-04] MEDS ORDERED: IPRA3AMP NEB ×2 (01:25→01:40)
[2017-06-04] MEDS ORDERED: TIZA4TAB PO (01:25)
[2017-06-04] MEDS ORDERED: SUMA100T4 PO (01:25)
[2017-06-04] MEDS ORDERED: MELO15TA23 PO (01:25)
[2017-06-04] MEDS ORDERED: RANI150T2 PO (01:25)
[2017-06-04 05:20] VITALS: BP 131/59
--- NOTE | 2017-06-04 06:30 | NUR ---
Assumed care of the patient from the ED on 06/03/17 @2146 via stretcher. Patient alert and oriented no acute distress noted. Vital signs stable, sat 99% on 2 liters of oxygen nasal cannula. No complaints or concerns voiced during the shift. Able to transfer self to and from the bathroom without any difficulties. Resting quietly with eyes closed. Call henriquez is in reach.
[2017-06-04] MEDS ORDERED: ALBUTEROL SULFATE 8GM INHALER. INH PRN (07:30)
[2017-06-04] MEDS ORDERED: ONDANSETRON ODT 4 MG TAB.RAPDIS PO PRN (07:30)
[2017-06-04] MEDS ORDERED: ALBUTEROL SULFATE 2.5 MG/3 ML NEBU. NEB PRN (07:45)
[2017-06-04] MEDS: IPRATRPIUM/ALBUTEROL 0.5/2.5MG 3 ML NEBU. NEB SCH ×4 (08:00→20:39)
[2017-06-04 08:06] LABS: BASO # 0.2 x10^3/uL (0.0-0.2); BASO % 1 % (0-3); EOS # 1.6 x10^3/uL (0.0-0.7); EOS % 11 % (0-3); HEMATOCRIT 31.3 % (36.0-47.0); HEMOGLOBIN 10.3 g/dL (12.0-15.5); LYMPH # 5.6 x10^3/uL (1.0-4.8); LYMPH % 38 % (24-48); MEAN CORPUSCULAR HEMOGLOBIN 31 pg (25-35); MEAN CORPUSCULAR HGB CONC 33 g/dL (31-37); MEAN CORPUSCULAR VOLUME 95 fL (79-100); MONO # 1.3 x10^3/uL (0.0-1.1); MONO % 9 % (0-9); NEUT # 6.3 x10^3uL (1.8-7.7); NEUT % 42 % (31-73); PLATELET COUNT 401 x10^3/uL (140-400); RED BLOOD COUNT 3.29 x10^6/uL (3.50-5.40); RED CELL DISTRIBUTION WIDTH 13.9 % (11.5-14.5); WHITE BLOOD COUNT 14.9 x10^3/uL (4.0-11.0)
[2017-06-04 08:13] LABS: ALBUMIN 3.2 g/dL (3.4-5.0); ALBUMIN/GLOBULIN RATIO 0.7 (1.0-1.7); CREATININE 1.7 mg/dL (0.6-1.0); GFR 29.6; POTASSIUM 5.7 mmol/L (3.5-5.1); TOTAL BILIRUBIN 0.1 mg/dL (0.2-1.0); TOTAL PROTEIN 7.5 g/dL (6.4-8.2)
[2017-06-04] MEDS: DICLOFENAC SODIUM 1% TOPICAL GEL 100GM TUBE. TP SCH ×4 (09:00→21:13)
[2017-06-04] MEDS ORDERED: tiZANidine 4 MG TABLET. PO SCH (09:00)
[2017-06-04] MEDS ORDERED: LISINOPRIL 5 MG TABLET. PO SCH (09:00)
[2017-06-04] MEDS ORDERED: VITAMIN B COMPLEX CAPSULE. PO SCH (09:00)
[2017-06-04] MEDS: ASPIRIN ENTERIC COATED 81 MG TABLET.DR. PO SCH (09:18)
[2017-06-04] MEDS: CHOLECALCIFEROL (VITAMIN D3) 1,000 UNIT TABLET PO SCH (09:18)
[2017-06-04] MEDS: ASCORBIC ACID 500 MG TABLET PO SCH (09:18)
[2017-06-04] MEDS: OMEGA-3 FATTY ACIDS/FISH OIL 1,000 MG CAPSULE. PO SCH ×3 (09:18→21:11)
[2017-06-04] MEDS: TOPIRAMATE 25 MG TABLET. PO SCH ×2 (09:18→21:12)
[2017-06-04] MEDS: CYANOCOBALAMIN (VITAMIN B-12) 1,000 MCG TABLET. PO SCH (09:19)
[2017-06-04] MEDS: busPIRone 10 MG TABLET. PO SCH (09:19)
[2017-06-04] MEDS: DULoxetine HCL 60 MG CAPSULE.DR PO SCH (09:19)
[2017-06-04] MEDS: FLUTICASONE 50MCG/NASAL SPRAY 16GM BOTTLE. NS SCH (09:19)
[2017-06-04] MEDS: CETIRIZINE HCL 10 MG TABLET PO SCH (09:22)
[2017-06-04] MEDS: buPROPion SR 150 MG TABLET.SA PO SCH ×2 (09:22→21:12)
[2017-06-04] MEDS: cefTRIAXone IV Push 1 GM VIAL. IVP SCH (09:22)
[2017-06-04] MEDS: CYCLOBENZAPRINE 10 MG TABLET. PO SCH ×3 (09:22→21:11)
[2017-06-04] MEDS: GABAPENTIN 300 MG CAPSULE. PO SCH ×3 (09:22→21:12)
[2017-06-04] MEDS: METOPROLOL TART IMMED RELEASE 50 MG TABLET PO SCH ×2 (09:23→21:11)
[2017-06-04] MEDS: INSULIN DETEMIR 300 UNITS/3 ML INSULN.PEN. SQ SCH ×2 (09:24→21:19)
[2017-06-04] MEDS: INSULIN ASPART 300 UNITS/3 ML INSULN.PEN SQ SCH ×3 (09:25→17:10)
[2017-06-04] MEDS: traMADol 50 MG TABLET PO PRN (09:38)
[2017-06-04] MEDS: IV NORMAL SALINE 1,000ML 1,000 ML IV SCH (09:38)
--- NOTE | 2017-06-04 10:16 | HP ---
ADMIT DATE: 06/03/2017 HISTORY OF PRESENT ILLNESS: The patient is a 71-year-old female with nausea, vomiting for the last 3-4 days, treated for urinary tract infection, got increasingly worse, started to have severe right flank pain as well, pain radiating up into her back associated with nausea and vomiting. The patient also has severe left arm pain with movement, made worse with movement. In any case, the patient was taking antiemetics placed and she was markedly dehydrated, acute renal failure as well as dehydration, nausea, vomiting, and flank pain. The patient was admitted for further evaluation and treatment thereof. PAST MEDICAL HISTORY: Includes that of tonsillectomy, headaches, hypercholesterolemia, COPD, pneumonia, sleep apnea, diverticulosis, abdominal surgeries, obesity, GERD, reproductive disorders, hysterectomy, renal disease, urinary tract infections, degenerative arthritis, chronic lower back pain with a pain stimulator, endocrine disorders like diabetes, depression, tardive dyskinesia, blood disorders. Influenza and pneumococcal vaccinations were normal. She has also had a splenectomy. FAMILY HISTORY: Positive for hypertension in the father. Mother with gallbladder and diabetes. Father with depression and cardiovascular problems. ALLERGIES: GRAPEFRUIT, HYDROMORPHONE, METOCLOPRAMIDE, MORPHINE, DILANTIN, TEMAZEPAM, TRAZODONE AND AMBIEN. The patient is a full code. HOME MEDICATIONS: Include that of albuterol, ascorbic acid, aspirin, Lipitor, B complex, Wellbutrin 150, buspirone 10 mg daily, Tegretol XR 200 mg at bedtime, Zyrtec 10, vitamin D3, B12, Voltaren, Cymbalta 60, fluticasone, gabapentin 300 mg t.i.d., DuoNeb, lisinopril 5, losartan/ HCTZ, meloxicam 15, metformin 1000 b.i.d., metoprolol 50 mg b.i.d., Zofran 4 mg, promethazine 25 mg, Zantac 150, Requip 1 mg, sumatriptan 100 mg, tizanidine 4 mg, Topamax, tramadol 50. REVIEW OF SYSTEMS: The patient denies any chest pain, some mild shortness of breath, left arm pain, nausea, vomiting, right flank pain. Denies any melena, hematochezia, hematemesis. Did have some diarrhea; however, neurologically stable. PHYSICAL EXAMINATION: GENERAL: The patient is a pleasant white female, moderate amount of pain. VITAL SIGNS: Blood pressure 130/60, respiratory rate 16, pulse 85, afebrile. HEENT: The patient's head was atraumatic, normocephalic. Eyes: PERRLA without jaundice. Mouth and throat were normal. NECK: Supple, no JVD, carotid bruits. No thyromegaly. LUNGS: The patient's lungs were diminished throughout, poor movement of air. CARDIOVASCULAR: Regular sinus rhythm, S1, S2, without murmur, rub, thrill, or extra heart sounds. ABDOMEN: The patient's abdomen is soft, nontender, no rebound or guarding. Positive bowel sounds, no hepatosplenomegaly was noted. EXTREMITIES: No clubbing, cyanosis, nor edema. The patient's left arm with poor movement secondary to the pain, I believe in the shoulder and elbow area. NEUROLOGIC: Stable. LABORATORY DATA: White count 19,000, hemoglobin 10. BUN 43, creatinine 2.1, potassium has gone up slightly, but not on potassium. Urine unremarkable. IMPRESSION: Leukocytosis, hyperkalemia, type 2 diabetes, history of gastroparesis, right flank pain. PLAN: The patient will be admitted for further evaluation, IV fluids, antibiotics and make further assessment on her as indicated. JAYMIE GE MD DR: MAURIZIO/luis angel JOB#: [id number] / [id number]
--- NOTE | 2017-06-04 10:44 | RAD ---
2 view CXR: Clinical indications: Shortness of breath. Comparison: March 22, 2017. Findings: No acute lung infiltrate or pleural effusion or pulmonary edema or lung mass or pneumothorax is seen. The heart size, pulmonary vasculature, mediastinum and both oliver are stable. The osseous structures appear intact. Impression: No acute radiographic abnormality is seen.
--- NOTE | 2017-06-04 10:47 | NUR ---
Pt alert and oriented x4. Complaining of left arm pain, Dr Moreland aware. PRN tramadol given along with heating pad. Pt is A paced on the monitor. Bed low and locked. IVF started. Will continue to monitor.
--- NOTE | 2017-06-04 11:20 | RAD ---
CT study of the abdomen and pelvis without contrast History: Abdominal pain. Left flank pain for 2 days. Comparison: March 25, 2017. Technique: Noncontrast helical CT scanning of the abdomen and pelvis was performed. Without contrast, the sensitivity to detect organ pathology and GI tract pathology is decreased. PQRS Compliance Statement: One or more of the following individualized dose reduction techniques were utilized for this examination: 1. Automated exposure control 2. Adjustment of the mA and/or kV according to patient size 3. Use of iterative reconstruction technique Findings: The liver and pancreas are homogeneous in appearance on this noncontrast study. 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 The gallbladder is surgically absent. No extrahepatic biliary ductal dilatation is seen. No adrenal mass is evident. No renal stone or hydronephrosis or hydroureter is seen. However, there is a tiny 2 mm stone within the distal left ureter seen on image 109 and series 2 located about 2 cm proximal to the UVJ. The urinary bladder wall is smooth. Left-sided mild perinephric inflammatory stranding is seen. No focal aneurysmal dilatation of the abdominal aorta is seen. No enlarged abdominal or pelvic lymphadenopathy is evident. Anterior abdominal wall hernia containing bowel is again evident. This is unchanged. No bowel obstruction is seen. No free air or free fluid or mesenteric edema is seen. L2 hemangioma is seen. No lung base consolidation is evident. There is chronic atelectasis of both lung bases posteriorly. IMPRESSION: 2 mm distal left ureteral stone located 2 cm proximal to the UVJ. No hydronephrosis or hydroureter is seen. However, there is mild perinephric inflammatory change around the left kidney. Therefore, rupture of a calyx is possible which may decompress any hydronephrosis or hydroureter.
[2017-06-04 11:25] VITALS: BP 105/65
--- NOTE | 2017-06-04 11:40 | EKG ---
[address] [address] Test Date: 2017-06-03 Test Time: 18:32:49 Pat Name: PAMELA CAIN Department: Room: Gender: F Toe Lining Closer: SHLOMO : 1945 Requested By: JAYMIE HO Order Number: [id number] Reading MD: Measurements Intervals [place] Rate: 83 P: 0 AK: 170 QRS: -49 QRSD: 84 T: 71 QT: 360 QTc: 429 Interpretive Statements SINUS RHYTHM ABNORMAL LEFT AXIS DEVIATION T ABNORMALITY IN HIGH LATERAL LEADS ABNORMAL ECG RI6.01 No previous ECG available for comparison
[2017-06-04] MEDS: ENOXAPARIN 30 MG/0.3 ML DISP.SYRIN. SQ SCH (12:10)
[2017-06-04 14:38] VITALS: BP 109/61
[2017-06-04 19:45] VITALS: BP 99/58
[2017-06-04] MEDS ORDERED: MONTELUKAST 10 MG TABLET. PO SCH (21:00)
[2017-06-04] MEDS ORDERED: carBAMazepine XR 200 MG TAB.ER.12H PO SCH (21:00)
[2017-06-04] MEDS ORDERED: rOPINIRole 1 MG TABLET. PO SCH (21:00)
[2017-06-04] MEDS ORDERED: ATORVASTATIN CALCIUM 10 MG TABLET. PO SCH (21:00)
[2017-06-04] MEDS ORDERED: MIRTAZAPINE 30 MG TABLET PO SCH (21:00)
[2017-06-04] MEDS: LACTOBACILLUS RHAMNOSUS GG 1 CAPSULE. PO SCH (21:12)
[2017-06-04 23:44] VITALS: BP 134/69
[2017-06-05] MEDS: traMADol 50 MG TABLET PO PRN (02:04)
[2017-06-05] MEDS: IPRATRPIUM/ALBUTEROL 0.5/2.5MG 3 ML NEBU. NEB SCH ×2 (04:54→10:52)
[2017-06-05] MEDS: TOPIRAMATE 25 MG TABLET. PO SCH (05:30)
[2017-06-05] MEDS: IV NORMAL SALINE 1,000ML 1,000 ML IV SCH (06:10)
[2017-06-05 06:31] LABS: BASO # 0.1 x10^3/uL (0.0-0.2); BASO % 1 % (0-3); EOS # 1.5 x10^3/uL (0.0-0.7); EOS % 8 % (0-3); HEMATOCRIT 28.3 % (36.0-47.0); HEMOGLOBIN 9.2 g/dL (12.0-15.5); LYMPH # 8.2 x10^3/uL (1.0-4.8); LYMPH % 47 % (24-48); MEAN CORPUSCULAR HEMOGLOBIN 31 pg (25-35); MEAN CORPUSCULAR HGB CONC 33 g/dL (31-37); MEAN CORPUSCULAR VOLUME 96 fL (79-100); MONO # 1.7 x10^3/uL (0.0-1.1); MONO % 10 % (0-9); NEUT # 6.1 x10^3uL (1.8-7.7); NEUT % 35 % (31-73); PLATELET COUNT 344 x10^3/uL (140-400); RED BLOOD COUNT 2.96 x10^6/uL (3.50-5.40); RED CELL DISTRIBUTION WIDTH 14.1 % (11.5-14.5); WHITE BLOOD COUNT 17.6 x10^3/uL (4.0-11.0)
[2017-06-05 06:41] LABS: CALCIUM 8.7 mg/dL (8.5-10.1); CREATININE 1.3 mg/dL (0.6-1.0); GFR 40.4; POTASSIUM 4.7 mmol/L (3.5-5.1)
[2017-06-05 07:41] LABS: % BASOS 2 % (0-3); % EOS 12 % (0-5); % LYMPHS 44 % (24-48); % MONOS 5 % (0-10); % SEGS 37 % (35-66)
[2017-06-05 07:42] LABS: PLATELET CLUMP PRESENT; PLT ESTIMATE ADEQUATE (ADEQUATE)
[2017-06-05] MEDS: buPROPion SR 150 MG TABLET.SA PO SCH (08:29)
[2017-06-05] MEDS: CHOLECALCIFEROL (VITAMIN D3) 1,000 UNIT TABLET PO SCH (08:29)
[2017-06-05] MEDS: CYANOCOBALAMIN (VITAMIN B-12) 1,000 MCG TABLET. PO SCH (08:29)
[2017-06-05] MEDS: GABAPENTIN 300 MG CAPSULE. PO SCH (08:29)
[2017-06-05] MEDS: DULoxetine HCL 60 MG CAPSULE.DR PO SCH (08:30)
[2017-06-05] MEDS: ASCORBIC ACID 500 MG TABLET PO SCH (08:30)
[2017-06-05] MEDS: CYCLOBENZAPRINE 10 MG TABLET. PO SCH (08:30)
[2017-06-05] MEDS: busPIRone 10 MG TABLET. PO SCH (08:30)
[2017-06-05] MEDS: ASPIRIN ENTERIC COATED 81 MG TABLET.DR. PO SCH (08:30)
[2017-06-05] MEDS: OMEGA-3 FATTY ACIDS/FISH OIL 1,000 MG CAPSULE. PO SCH (08:30)
[2017-06-05] MEDS: LACTOBACILLUS RHAMNOSUS GG 1 CAPSULE. PO SCH (08:30)
[2017-06-05] MEDS: CETIRIZINE HCL 10 MG TABLET PO SCH (08:30)
[2017-06-05] MEDS: METOPROLOL TART IMMED RELEASE 50 MG TABLET PO SCH (08:30)
[2017-06-05] MEDS: FLUTICASONE 50MCG/NASAL SPRAY 16GM BOTTLE. NS SCH (08:31)
[2017-06-05] MEDS: ENOXAPARIN 30 MG/0.3 ML DISP.SYRIN. SQ SCH (08:35)
[2017-06-05] MEDS: INSULIN ASPART 300 UNITS/3 ML INSULN.PEN SQ SCH (08:38)
[2017-06-05] MEDS: INSULIN DETEMIR 300 UNITS/3 ML INSULN.PEN. SQ SCH (08:39)
[2017-06-05] MEDS: cefTRIAXone IV Push 1 GM VIAL. IVP SCH (08:42)
[2017-06-05] MEDS: DICLOFENAC SODIUM 1% TOPICAL GEL 100GM TUBE. TP SCH (09:00)
[2017-06-05 09:53] VITALS: BP 151/79
--- NOTE | 2017-06-05 12:01 | NUR ---
NSG NOTE; TRANSFER TO [facility] AT 1200 VIA CART ACCOMP BY EMS PERSONNEL. REPORT GIVEN VIA PHONE TO RECEIVING AMADEO WEAVER.
--- NOTE | 2017-06-09 12:26 | DS ---
DATE OF DISCHARGE: 06/05/2017 HOSPITAL COURSE: The patient is a 71-year-old female who came in with nausea, vomiting for 3-4 days, possibly treated for urinary tract infection, began to have severe pain in left arm and also in her right abdominal area. A CT scan demonstrated nephrolithiasis as well as possible injury to the chuyita of the kidney. As a result of this and her elevated white count of 19,000, the patient was transferred down to [place] for urological consultation. The patient otherwise was stable by the time of discharge. Sugars were elevated. The patient made good progress during the rest of her hospitalization here and was transferred via EMS to [place] for urological consultation. IMPRESSION: Nephrolithiasis, possible injury to the chuyita, type 2 diabetes, morbid obesity, moderate protein malnutrition, chronic kidney disease 3, possibly due to the obstruction. JAYMIE GE MD DR: MAURIZIO/luis angel JOB#: [id number] / [id number]
== END 2017-06-05 12:00 | disposition short-term general hospital (02) | DRG 683 ==
LOC: ER 17:23 → 1 SOUTH 20:50
PROVIDERS: ADMIT Family Medicine; ATTEND Family Medicine
DX: N17.9 Acute kidney failure, unspecified (principal); N39.0 Urinary tract infection, site not specified; E11.22 Type 2 diabetes mellitus with diabetic chronic kidney disease; E87.5 Hyperkalemia; N20.0 Calculus of kidney; E66.01 Morbid (severe) obesity due to excess calories; E83.42 Hypomagnesemia; J44.9 Chronic obstructive pulmonary disease, unspecified; E78.00 Pure hypercholesterolemia, unspecified; E86.0 Dehydration; G47.30 Sleep apnea, unspecified; I10 Essential (primary) hypertension; F32.9 Major depressive disorder, single episode, unspecified; G89.29 Other chronic pain; K57.90 Diverticulosis of intestine, part unspecified, without perforation or abscess without bleeding; M19.90 Unspecified osteoarthritis, unspecified site; M54.5 Low back pain; K21.9 Gastro-esophageal reflux disease without esophagitis; E66.9 Obesity, unspecified; Z81.8 Family history of other mental and behavioral disorders; Z82.49 Family history of ischemic heart disease and other diseases of the circulatory system; Z83.3 Family history of diabetes mellitus; Z90.710 Acquired absence of both cervix and uterus; Z90.81 Acquired absence of spleen; Z88.6 Allergy status to analgesic agent; Z88.1 Allergy status to other antibiotic agents; Z88.8 Allergy status to other drugs, medicaments and biological substances; Z91.018 Allergy to other foods; Z90.49 Acquired absence of other specified parts of digestive tract; Z68.33 Body mass index [BMI] 33.0-33.9, adult; N18.3 Chronic kidney disease, stage 3 (moderate)
CPT/HCPCS: 36415; 71046; 74176; 80048; 80053; 81001; 82947; 83605; 83735; 85007; 85025; 85379; 87040; 93005; 94640; 94760; 96361; 96365; 96375; J0696; J1650; J1815; J1956; J2405; J3475; J7620; 99285-25; J7030

== ENCOUNTER → 2017-06-28 | Outpatient (CLI) | payer MEDICARE, OTHER ==
[2017-06-05 09:53] VITALS: BP 151/79
[~2017-06-28] MED LIST changes: +ALBU8.5H8 INH; +CETI10TA16 PO; +GABA-586 PO; +IPRA3AMP NEB; +LOSA1TAB22 PO; +MELO15TA23 PO; +METO50TA6 PO; +ONDA4TAB11 PO; +ONDA4TAB12 PO; +PROM25TA10 PO; +RANI150T2 PO; +SUMA100T4 PO; +TRAM50TA PO
--- NOTE | 2017-06-28 12:11 | RAD ---
Indication: Abdominal hernia. Technique: CT abdomen and pelvis without IV contrast with multiplanar reformats. Comparison: Previous study from 06/04/2017 Findings: Limited study due to lack of IV contrast. Heart is normal in size. No pericardial or pleural effusion. Coronary artery calcifications noted. Clear lung bases. Noncontrast appearance of the liver, pancreas, adrenals is within normal limits. Status post splenectomy and cholecystectomy. No hydronephrosis or nephrolithiasis. No retroperitoneal or pelvic adenopathy. No bowel obstruction. Left parasagittal anterior abdominal wall hernia containing focal loop of transverse colon, small bowel and omentum and mesentery with neck measuring approximately 8.3 cm. The hernia sac measures 8.0 x 4.5 x 12.0 cm. Another focal small bowel loop containing umbilical hernia noted with neck measuring 3.3 cm. Bladder is compressed limiting evaluation however shows no radiopaque stones. Status post hysterectomy. No solid adnexal lesions. No ascites or free pelvic fluid. Right superficial gluteal spinal course to greater noted with its leads at the level of T9 vertebral body. Hemangioma seen in L2 vertebral body. No suspicious bony lesion. Impression: Limited study due to lack of IV contrast. Anterior abdominal wall hernia as described above without evidence of bowel obstruction or strangulation. PQRS Compliance Statement: One or more of the following individualized dose reduction techniques were utilized for this examination: 1. Automated exposure control 2. Adjustment of the mA and/or kV according to patient size 3. Use of iterative reconstruction technique
== END | disposition home or self-care (01) ==
LOC: CT 10:59
PROVIDERS: ATTEND Family Medicine
DX: K43.9 Ventral hernia without obstruction or gangrene (principal); I25.10 Atherosclerotic heart disease of native coronary artery without angina pectoris; D18.09 Hemangioma of other sites; J44.9 Chronic obstructive pulmonary disease, unspecified; I10 Essential (primary) hypertension; E11.9 Type 2 diabetes mellitus without complications; Z90.710 Acquired absence of both cervix and uterus; Z90.81 Acquired absence of spleen; Z79.01 Long term (current) use of anticoagulants
CPT/HCPCS: 74176

== ENCOUNTER → 2017-06-29 | Day surgery (SDC) | payer MEDICARE, OTHER ==
[~2017-06-29] MED LIST changes: +ALBUTEROL SULFATE 2.5 MG/3 ML NEBU. NEB ONE; +ALBUTEROL SULFATE 2.5 MG/3 ML NEBU. NEB PRN; +ATROPINE 0.5 MG/5 ML DISP.SYRIN. IV PRN; +IV RINGERS SOLUTION,LACTATED 1,000 ML IV ONE; +IV RINGERS SOLUTION,LACTATED 1,000 ML IV SCH; +LIDOCAINE 2% PF Vial for OR 5 ML VIAL. ONE; +NALOXONE 0.4 MG/ML VIAL. IV PRN; +ONDANSETRON PF 4 MG/2 ML VIAL. IV PRN; +PROPOFOL 20 ML IV ONE
[2017-06-29 10:33] VITALS: BP 123/63
== END | disposition home or self-care (01) ==
LOC: SURG 08:21
PROVIDERS: ATTEND Internal Medicine Gastroenterology
DX: K25.9 Gastric ulcer, unspecified as acute or chronic, without hemorrhage or perforation (principal); K20.9 Esophagitis, unspecified; K31.89 Other diseases of stomach and duodenum; K21.9 Gastro-esophageal reflux disease without esophagitis; I25.2 Old myocardial infarction; I12.9 Hypertensive chronic kidney disease with stage 1 through stage 4 chronic kidney disease, or unspecified chronic kidney disease; E11.22 Type 2 diabetes mellitus with diabetic chronic kidney disease; N18.3 Chronic kidney disease, stage 3 (moderate); E78.5 Hyperlipidemia, unspecified; J45.909 Unspecified asthma, uncomplicated; F32.9 Major depressive disorder, single episode, unspecified; M19.90 Unspecified osteoarthritis, unspecified site; G25.81 Restless legs syndrome; Z79.899 Other long term (current) drug therapy; Z79.82 Long term (current) use of aspirin; Z87.891 Personal history of nicotine dependence; Z90.49 Acquired absence of other specified parts of digestive tract; Z90.710 Acquired absence of both cervix and uterus; Z90.81 Acquired absence of spleen; Z88.6 Allergy status to analgesic agent; Z88.8 Allergy status to other drugs, medicaments and biological substances
CPT/HCPCS: 43235; 82947; J2704; J7120; J7613; J2001

== ENCOUNTER → 2017-07-19 | Outpatient (CLI) | payer MEDICARE, OTHER ==
[2017-06-29 10:33] VITALS: BP 123/63
[~2017-07-19] MED LIST changes: -ALBUTEROL SULFATE 2.5 MG/3 ML NEBU. NEB ONE; -ALBUTEROL SULFATE 2.5 MG/3 ML NEBU. NEB PRN; -ATROPINE 0.5 MG/5 ML DISP.SYRIN. IV PRN; -IV RINGERS SOLUTION,LACTATED 1,000 ML IV ONE; -IV RINGERS SOLUTION,LACTATED 1,000 ML IV SCH; -LIDOCAINE 2% PF Vial for OR 5 ML VIAL. ONE; -NALOXONE 0.4 MG/ML VIAL. IV PRN; -ONDANSETRON PF 4 MG/2 ML VIAL. IV PRN; -PROPOFOL 20 ML IV ONE
[2017-07-19 13:22] LABS: BASO # 0.2 x10^3/uL (0.0-0.2); BASO % 1 % (0-3); EOS # 0.8 x10^3/uL (0.0-0.7); EOS % 5 % (0-3); HEMATOCRIT 32.4 % (36.0-47.0); HEMOGLOBIN 10.6 g/dL (12.0-15.5); LYMPH # 5.6 x10^3/uL (1.0-4.8); LYMPH % 38 % (24-48); MEAN CORPUSCULAR HEMOGLOBIN 31 pg (25-35); MEAN CORPUSCULAR HGB CONC 33 g/dL (31-37); MEAN CORPUSCULAR VOLUME 94 fL (79-100); MONO # 1.1 x10^3/uL (0.0-1.1); MONO % 7 % (0-9); NEUT # 7.2 x10^3uL (1.8-7.7); NEUT % 48 % (31-73); PLATELET COUNT 466 x10^3/uL (140-400); RED BLOOD COUNT 3.44 x10^6/uL (3.50-5.40); RED CELL DISTRIBUTION WIDTH 14.8 % (11.5-14.5); WHITE BLOOD COUNT 14.9 x10^3/uL (4.0-11.0)
[2017-07-19 13:32] LABS: ALBUMIN 3.6 g/dL (3.4-5.0); ALBUMIN/GLOBULIN RATIO 0.8 (1.0-1.7); CALCIUM 9.4 mg/dL (8.5-10.1); CREATININE 1.4 mg/dL (0.6-1.0); GFR 37.1; POTASSIUM 4.9 mmol/L (3.5-5.1); TOTAL BILIRUBIN 0.2 mg/dL (0.2-1.0)
[2017-07-19 14:00] LABS: % ATYL 3 % (0-0); % BANDS 0 % (0-9); % BASOS 1 % (0-3); % EOS 5 % (0-5); % LYMPHS 40 % (24-48); % METAS 0 % (0-0); % MONOS 2 % (0-10); % MYELOS 1 % (0-0); % SEGS 48 % (35-66); PLT ESTIMATE INCREASED (ADEQUATE)
[2017-07-19 14:01] LABS: BURR CELLS PRESENT
== END | disposition home or self-care (01) ==
LOC: LAB 12:04
PROVIDERS: ATTEND Internal Medicine Hematology & Oncology
DX: D72.829 Elevated white blood cell count, unspecified (principal); D64.9 Anemia, unspecified; I12.9 Hypertensive chronic kidney disease with stage 1 through stage 4 chronic kidney disease, or unspecified chronic kidney disease; E11.22 Type 2 diabetes mellitus with diabetic chronic kidney disease; N18.3 Chronic kidney disease, stage 3 (moderate)
CPT/HCPCS: 36415; 80053; 84443; 85007; 85025

== ENCOUNTER → 2017-07-28 | Outpatient (CLI) | payer MEDICARE, OTHER ==
[2017-06-29 10:33] VITALS: BP 123/63
--- NOTE | 2017-07-28 12:11 | RAD ---
Radionuclide gastric emptying study, 07/28/2017: History: Fullness, retained food in stomach The study was performed utilizing a solid test meal radiolabeled with 2.0 mCi of technetium 99m sulfur colloid. Imaging was performed out to 1 hour. Very little gastric emptying is evident. The T1/2 was calculated at 255 minutes. A normal T1/2 is 60 minutes +/- 30 minutes. IMPRESSION: Moderately delayed gastric emptying
== END | disposition home or self-care (01) ==
LOC: NM 08:59
PROVIDERS: ATTEND Internal Medicine Gastroenterology
DX: K30 Functional dyspepsia (principal)
CPT/HCPCS: 78264; A9541

== ENCOUNTER 2017-10-10 18:27 | Emergency (ER) | payer MEDICARE, OTHER ==
[~2017-10-10] VITALS: Ht 144.8 cm; Wt 72.6 kg
[~2017-10-10 18:27] MED LIST changes: -IPRA3AMP NEB; +IPRA3AMP29 NEB; -METF10002 PO; +METF10003 PO
[2017-10-10] MEDS ORDERED: IV NORMAL SALINE 1,000ML 1,000 ML IV SCH (18:34)
--- NOTE | 2017-10-10 18:34 | ED.ADGEN ---
Past History Past Medical History: Cancer, COPD, Depression, Diabetes, High Cholesterol, Hypertension, VT Past Surgical History: Cholecystectomy, Hysterectomy, Spleenectomy, Tonsillectomy, Other Smoking: Non-smoker Alcohol Use: Sober Drug Use: None Adult General Chief Complaint Chief Complaint ".. I ve been sick today.. nausea... a little diarrhea ..abd. pain.. ".. " But just this afternoon.. I got really weak..I got bad reflux or something.. I got dizzy and passed out..." HPI HPI Patient is a 72 year old female who presents with nausea, vomiting, some diarrhea, generalized weakness, epigastric pain and hypotension. Pt. is know diabetic . In [place] 2 weeks ago on vacation. Pt. is very diaphoretic and localizes her discomfort to epigastric area. Pt. present in hypotension and tachycardia. Pt. denies prior hx of VT. Denies tarry stools. Pt. denies intake of bad food. Pt. does have hx DM, HTN, and elevated cholesterol. Stat EKG shows elevation of ST In II and I with contralateral changes. STEMI protocol initiated. . Follows with Dr. Moreland Review of Systems Review of Systems Constitutional: Denies fever or chills [] Eyes: Denies change in visual acuity, redness, or eye pain [] HENT: Denies nasal congestion or sore throat [] Respiratory: Denies cough or shortness of breath [] Cardiovascular: No additional information not addressed in HPI [] GI: Complaints of epigastric abdominal pain, nausea,. Denies vomiting, bloody stools . Hx of some diarrhea [] : Denies dysuria or hematuria [] Musculoskeletal: Denies back pain or joint pain [] Integument: Denies rash or skin lesions [] Neurologic: Denies headache, focal weakness or sensory changes [] Endocrine: Denies polyuria or polydipsia [] All other systems were reviewed and found to be within normal limits, except as documented in this note. Family History Family History Non-contributory Current Medications Current Medications Current Medications Medications (Trade) Dose Ordered Sig/Kristin Start Time Stop Time Status Last Admin Dose Admin Aspirin (Melany Aspirin) 325 mg 1X ONCE 10/10/17 19:00 10/10/17 19:01 DC Famotidine (Pepcid Vial) 20 mg 1X ONCE 10/10/17 19:00 10/10/17 19:01 DC Fentanyl Citrate (Fentanyl 2ml Vial) 25 mcg PRN Q15MIN PRN 10/10/17 18:45 10/10/17 21:15 DC Heparin Sodium (Porcine) (Heparin Sodium) 4,000 unit 1X ONCE 10/10/17 18:45 10/10/17 18:47 DC Heparin Sodium/ Dextrose 500 ml @ 0 mls/hr CONT PRN 10/10/17 18:45 10/10/17 21:15 DC Ondansetron HCl (Zofran) 8 mg 1X ONCE 10/10/17 19:00 10/10/17 19:01 DC Potassium Chloride/Dextrose 1,000 ml @ 75 mls/hr 1X ONCE 10/10/17 19:00 10/10/17 21:15 DC Sodium Chloride 1,000 ml @ 1,000 mls/hr Q1H 10/10/17 18:34 10/10/17 19:33 DC See Nursing for home meds. Allergies Allergies Allergies Coded Allergies Type Severity Reaction Last Updated Verified grapefruit Allergy Intermediate 12/19/14 Yes hydromorphone Allergy Intermediate 12/19/14 Yes metoclopramide Allergy Intermediate 09/03/14 Yes morphine Allergy Intermediate 09/03/14 Yes phenytoin Allergy Intermediate 09/03/14 Yes temazepam Allergy Intermediate 12/19/14 Yes trazodone Allergy Intermediate 09/03/14 Yes zolpidem Allergy Intermediate 03/24/17 Yes ropinirole Allergy Unknown 06/22/17 Yes Physical Exam Physical Exam Constitutional: In acute distress, ill in appearance. [] HENT: Normocephalic, atraumatic, bilateral external ears normal, oropharynx moist, no oral exudates, nose normal. [] Eyes: PERRLA, EOMI, conjunctiva normal, no discharge. [] Neck: Normal range of motion, no tenderness, supple, no stridor. [] Cardiovascular:Tachycardia Heart rate regular rhythm, PMI to Lt. Lungs & Thorax: Bilateral breath sounds crackles and wheezed bi lateral on auscultation [] Abdomen: Bowel sounds decreased, soft, epigastric tenderness, no masses, no pulsatile masses. Morbid obesity. Skin: Warm, diaphoretic, no erythema, no rash. [] Back: No tenderness, no CVA tenderness. [] Extremities: No tenderness, no cyanosis, no clubbing, ROM intact, ankle edema. [] No cording appreciated. Neurologic: Alert and oriented X 3, normal motor function, normal sensory function, no focal deficits noted. [] Psychologic: Affect anxious, judgement normal, mood normal. [] Current Patient Data Vital Signs Vital Signs Date Time Temp Pulse Resp B/P (MAP) Pulse Ox O2 Delivery O2 Flow Rate FiO2 10/10/17 18:54 Nasal Cannula 10/10/17 18:54 105 20 100 3.0 10/10/17 18:53 82/50 (61) Lab Results Laboratory Tests Test 10/10/17 18:45 10/10/17 19:00 POC Troponin I 0.02 ng/ml (<0.08) POC Hemoglobin 14.6 gm/dL POC Hematocrit 43 % POC Sodium 141 mmol/L (135-145) POC Potassium 4.1 mmol/L (3.5-5.0) POC Chloride 112 mmol/L (98-110) H POC Total CO2 14 mmol/L (23-32) L Anion Gap 20 mmol/L (6-14) H POC Blood Urea Nitrogen 31 mg/dL (8-26) H POC Creatinine 1.7 mg/dL (0.5-1.4) H Glucose Level 238 mg/dL (60-99) H POC Ionized Calcium (Jacob) 1.19 mmol/L (1.13-1.32) EKG EKG My interpretation of EKG shows as supraventricular tachycardia[]. Does have elevation in ST segment in lead I and II with contralateral changes-consistent with inferior VT- compared to prior these findings not present Radiology/Procedures Radiology/Procedures Patient was transferred before x-ray completed[] Course & Med Decision Making Course & Med Decision Making Pertinent Labs and Imaging studies reviewed. (See chart for details) Patient's labs were normal. Glucose 238, BUN 31 creatinine 1.7. Hgb. 14.6 Discussed presentation, testing and tx. plan with Dr. Casey- will accept pt in transfer to [facility] as STEMI- CC [address] Moreland to be notified of transfer. [] Final Impression Final Impression 1. Acute VT- Inferior? 2. Hypotension[] 3. Hx. HTN 4. DM 5. Hx. N, V, Diarrhea Dragon Disclaimer Dragon Disclaimer This electronic medical record was generated, in whole or in part, using a voice recognition dictation system. OTIS BOUDREAUX MD Oct 10, 2017 18:33
[2017-10-10] MEDS ORDERED: HEPARIN for IV BOLUS 10,000 UNIT/10 ML VIAL. IV ONE (18:45)
[2017-10-10] MEDS ORDERED: HEPARIN 25,000UTS/500ML PREMIX 500 ML IV PRN (18:45)
[2017-10-10 18:54] VITALS: BP 82/50
[2017-10-10] MEDS ORDERED: ONDANSETRON PF 4 MG/2 ML VIAL. IV ONE (19:00)
[2017-10-10] MEDS ORDERED: POTASSIUM CL 20MEQ IN D5W 1,000 ML IV ONE (19:00)
[2017-10-10] MEDS ORDERED: ASPIRIN 325 MG TABLET PO ONE (19:00)
[2017-10-10] MEDS ORDERED: FAMOTIDINE 20 MG/2 ML VIAL IVP ONE (19:00)
[2017-10-10 19:05] LABS: HEMOGLOBIN ISTAT 14.6 gm/dL; POTASSIUM ISTAT 4.1 mmol/L (3.5-5.0)
--- NOTE | 2017-10-11 06:23 | EKG ---
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
== END 2017-10-10 19:00 | disposition short-term general hospital (02) ==
LOC: ER 18:27
DX: I95.9 Hypotension, unspecified (principal); J44.9 Chronic obstructive pulmonary disease, unspecified; E11.9 Type 2 diabetes mellitus without complications; E78.00 Pure hypercholesterolemia, unspecified; I10 Essential (primary) hypertension; I25.2 Old myocardial infarction; Z90.49 Acquired absence of other specified parts of digestive tract; Z90.710 Acquired absence of both cervix and uterus; Z88.5 Allergy status to narcotic agent; Z88.8 Allergy status to other drugs, medicaments and biological substances; Z91.018 Allergy to other foods
CPT/HCPCS: 36415; 80047; 84484; 93005; 99291

== ENCOUNTER 2017-11-10 17:50 | Emergency (ER) | payer MEDICARE, OTHER ==
[~2017-11-10] VITALS: Ht 144.8 cm; Wt 72.0 kg
[2017-11-10] MEDS ORDERED: IV NORMAL SALINE 500ML 500 ML IV ONE (18:45)
[2017-11-10 18:46] LABS: BASO # 0.2 x10^3/uL (0.0-0.2); BASO % 1 % (0-3); EOS # 0.7 x10^3/uL (0.0-0.7); EOS % 4 % (0-3); HEMATOCRIT 32.4 % (36.0-47.0); HEMOGLOBIN 10.6 g/dL (12.0-15.5); LYMPH # 6.1 x10^3/uL (1.0-4.8); LYMPH % 34 % (24-48); MEAN CORPUSCULAR HEMOGLOBIN 30 pg (25-35); MEAN CORPUSCULAR HGB CONC 33 g/dL (31-37); MEAN CORPUSCULAR VOLUME 90 fL (79-100); MONO # 1.6 x10^3/uL (0.0-1.1); MONO % 9 % (0-9); NEUT # 9.4 x10^3uL (1.8-7.7); NEUT % 52 % (31-73); PLATELET COUNT 448 x10^3/uL (140-400); RED BLOOD COUNT 3.59 x10^6/uL (3.50-5.40); RED CELL DISTRIBUTION WIDTH 13.9 % (11.5-14.5); WHITE BLOOD COUNT 17.9 x10^3/uL (4.0-11.0)
[2017-11-10 18:59] LABS: ALBUMIN 3.4 g/dL (3.4-5.0); ALBUMIN/GLOBULIN RATIO 0.7 (1.0-1.7); CALCIUM 9.7 mg/dL (8.5-10.1); CREATININE 1.2 mg/dL (0.6-1.0); GFR 44.2; POTASSIUM 4.7 mmol/L (3.5-5.1); TOTAL BILIRUBIN 0.1 mg/dL (0.2-1.0); TOTAL PROTEIN 8.4 g/dL (6.4-8.2)
--- NOTE | 2017-11-10 19:24 | PHYS DOC ---
Past History Past Medical History: CAD, COPD, Depression, Diabetes, GERD, UTI Past Surgical History: Hysterectomy, Tonsillectomy Smoking: Non-smoker Alcohol Use: None Drug Use: None Adult General Chief Complaint Chief Complaint: ABDOMINAL PAIN HPI HPI 72-year-old female presents with one-day history of abdominal pain. Patient states that she has had abdominal cramping around her umbilicus intermittently throughout the day. She feels that her abdomen is more distended than normal. Nothing seems to pain better or worse. Patient denies shortness of breath, chest pain, fever, or chills. She has had nausea but no vomiting. She denies diarrhea, but has not had a bowel movement today. She had a bowel movement yesterday but admits to constipation and straining yesterday. The patient recently had an [facility] and had stents placed. She states that her pain is not similar today. Review of Systems Review of Systems Constitutional: Denies fever or chills [] Eyes: Denies change in visual acuity, redness, or eye pain [] HENT: Denies nasal congestion or sore throat [] Respiratory: Denies cough or shortness of breath [] Cardiovascular: No additional information not addressed in HPI [] GI: Abdominal pain and constipation[] : Denies dysuria or hematuria [] Musculoskeletal: Denies back pain or joint pain [] Integument: Denies rash or skin lesions [] Neurologic: Denies headache, focal weakness or sensory changes [] Endocrine: Denies polyuria or polydipsia [] All other systems were reviewed and found to be within normal limits, except as documented in this note. Current Medications Current Medications Current Medications Medications (Trade) Dose Ordered Sig/Kristin Start Time Stop Time Status Last Admin Dose Admin Sodium Chloride 500 ml @ 0 mls/hr 1X ONCE 11/10/17 18:45 11/10/17 18:46 DC 11/10/17 18:45 500 MLS/HR Allergies Allergies Allergies Coded Allergies Type Severity Reaction Last Updated Verified grapefruit Allergy Intermediate 12/19/14 Yes hydromorphone Allergy Intermediate 12/19/14 Yes metoclopramide Allergy Intermediate 09/03/14 Yes morphine Allergy Intermediate 09/03/14 Yes phenytoin Allergy Intermediate 09/03/14 Yes temazepam Allergy Intermediate 12/19/14 Yes trazodone Allergy Intermediate 09/03/14 Yes zolpidem Allergy Intermediate 03/24/17 Yes ropinirole Allergy Unknown 06/22/17 Yes Physical Exam Physical Exam Constitutional: Well developed, obese, well nourished, no acute distress, non- toxic appearance. [] HENT: Normocephalic, atraumatic, bilateral external ears normal, oropharynx moist, no oral exudates, nose normal. [] Eyes: PERRLA, EOMI, conjunctiva normal, no discharge. [] Neck: Normal range of motion, no tenderness, supple, no stridor. [] Cardiovascular:Heart rate regular rhythm, no murmur [] Lungs & Thorax: Bilateral breath sounds clear to auscultation [] Abdomen: Bowel sounds normal, soft, periumbilical tenderness, no masses, no pulsatile masses. [] Skin: Warm, dry, no erythema, no rash. [] Back: No tenderness, no CVA tenderness. [] Extremities: No tenderness, no cyanosis, no clubbing, ROM intact, no edema. [] Neurologic: Alert and oriented X 3, normal motor function, normal sensory function, no focal deficits noted. [] Psychologic: Affect normal, judgement normal, mood normal. [] Current Patient Data Vital Signs Vital Signs Date Time Temp Pulse Resp B/P (MAP) Pulse Ox O2 Delivery O2 Flow Rate FiO2 11/10/17 18:40 98.3 86 22 97 Room Air Lab Results Laboratory Tests Test 11/10/17 18:30 White Blood Count 17.9 x10^3/uL (4.0-11.0) H Red Blood Count 3.59 x10^6/uL (3.50-5.40) Hemoglobin 10.6 g/dL (12.0-15.5) L Hematocrit 32.4 % (36.0-47.0) L Mean Corpuscular Volume 90 fL (79-100) Mean Corpuscular Hemoglobin 30 pg (25-35) Mean Corpuscular Hemoglobin Concent 33 g/dL (31-37) Red Cell Distribution Width 13.9 % (11.5-14.5) Platelet Count 448 x10^3/uL (140-400) H Neutrophils (%) (Auto) 52 % (31-73) Lymphocytes (%) (Auto) 34 % (24-48) Monocytes (%) (Auto) 9 % (0-9) Eosinophils (%) (Auto) 4 % (0-3) H Basophils (%) (Auto) 1 % (0-3) Neutrophils # (Auto) 9.4 x10^3uL (1.8-7.7) H Lymphocytes # (Auto) 6.1 x10^3/uL (1.0-4.8) H Monocytes # (Auto) 1.6 x10^3/uL (0.0-1.1) H Eosinophils # (Auto) 0.7 x10^3/uL (0.0-0.7) Basophils # (Auto) 0.2 x10^3/uL (0.0-0.2) Platelet Estimate Pending Sodium Level 136 mmol/L (136-145) Potassium Level 4.7 mmol/L (3.5-5.1) Chloride Level 103 mmol/L (98-107) Carbon Dioxide Level 20 mmol/L (21-32) L Anion Gap 13 (6-14) Blood Urea Nitrogen 28 mg/dL (7-20) H Creatinine 1.2 mg/dL (0.6-1.0) H Estimated GFR (Cockcroft-Gault) 44.2 BUN/Creatinine Ratio 23 (6-20) H Glucose Level 93 mg/dL (70-99) Calcium Level 9.7 mg/dL (8.5-10.1) Total Bilirubin 0.1 mg/dL (0.2-1.0) L Aspartate Amino Transferase (AST) 17 U/L (15-37) Alanine Aminotransferase (ALT) 21 U/L (14-59) Alkaline Phosphatase 75 U/L (46-116) Total Protein 8.4 g/dL (6.4-8.2) H Albumin 3.4 g/dL (3.4-5.0) Albumin/Globulin Ratio 0.7 (1.0-1.7) L Lipase 117 U/L (73-393) EKG EKG [] Radiology/Procedures Radiology/Procedures [] Impressions: PA chest radiograph 11/10/2017 Clinical History: Coronary artery disease. Recent [facility]. A PA digital radiograph of the chest was obtained. Comparison study is dated 06/04/2017. A spinal stimulator is unchanged position. The cardiac silhouette is mildly enlarged. The thoracic aorta is mildly tortuous. No acute pulmonary infiltrate is seen. No pleural effusion or pneumothorax is noted. The osseous structures are unchanged. Impression: No acute abnormality is seen. Electronically signed by: Eligio Loya MD (11/10/2017 10:03 PM) [facility] CT scan of the abdomen and pelvis with contrast 11/10/2017 CLINICAL HISTORY: Abdominal pain. TECHNIQUE: After the intravenous administration of 60 cc of Omnipaque 300, contiguous, 5 mm axial sections were obtained through the abdomen and pelvis. One or more of the following individualized dose reduction techniques were utilized for this study: 1. Automated exposure control. 2. Adjustment of the mA and/or kV according to patient size. 3. Use of iterative reconstruction technique. FINDINGS: Comparison study is dated 06/28/2017. Images through the lung bases demonstrate mild cardiomegaly. Minimal subsegmental atelectasis is seen. The liver, pancreas, adrenal glands and kidneys are within normal limits. 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 Surgical clips are seen within the gallbladder fossa consistent with a cholecystectomy. Atherosclerotic calcification of the abdominal aorta is seen which tapers normally. Air and stool is seen throughout the colon. A large ventral hernia is seen which contains nondilated small and large bowel loops is again noted. This measures 12 cm in greatest transverse diameter. Images through the pelvis demonstrate the urinary bladder distended with urine. A moderate amount of stool is seen within the sigmoid colon and rectum. No free fluid is seen. The patient appears to be post hysterectomy. No adnexal mass is noted. No free fluid is seen. A spinal stimulator is seen in place. The osseous structures are unchanged. IMPRESSION: No acute abnormality is seen. Electronically signed by: Eligio Loya MD (11/10/2017 8:36 PM) [facility] Course & Med Decision Making Course & Med Decision Making Pertinent Labs and Imaging studies reviewed. (See chart for details) Patient's labs are marked for a white count of 17. Her troponin is negative. Her chest x-ray is unremarkable. Her CT of the abdomen and pelvis shows a large ventral hernia 12 cm which is not new. This could be the source for discomfort. There is no sign of incarcerated bowel. She also has moderate stool retention and a distended bladder. Her urine does show leukocyte esterase and white cells. I will treat her for UTI. [] Dragon Disclaimer Dragon Disclaimer This electronic medical record was generated, in whole or in part, using a voice recognition dictation system. Departure Departure: Referrals: JAYMIE GE MD (PCP) SABRINA DAMON DO Nov 10, 2017 19:24
[2017-11-10 19:56] LABS: % BANDS 1 % (0-9); % BASOS 1 % (0-3); % EOS 7 % (0-5); % LYMPHS 39 % (24-48); % MONOS 8 % (0-10); % SEGS 44 % (35-66); ANISOCYTOSIS PRESENT; PLT ESTIMATE INCREASED (ADEQUATE)
[2017-11-10] MEDS ORDERED: IOHEXOL 300 MG/ML 75 ML VIAL. IV ONE (20:00)
--- NOTE | 2017-11-10 20:40 | RAD ---
CT scan of the abdomen and pelvis with contrast 11/10/2017 CLINICAL HISTORY: Abdominal pain. TECHNIQUE: After the intravenous administration of 60 cc of Omnipaque 300, contiguous, 5 mm axial sections were obtained through the abdomen and pelvis. One or more of the following individualized dose reduction techniques were utilized for this study: 1. Automated exposure control. 2. Adjustment of the mA and/or kV according to patient size. 3. Use of iterative reconstruction technique. FINDINGS: Comparison study is dated 06/28/2017. Images through the lung bases demonstrate mild cardiomegaly. Minimal subsegmental atelectasis is seen. The liver, pancreas, adrenal glands and kidneys are within normal limits. 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 Surgical clips are seen within the gallbladder fossa consistent with a cholecystectomy. Atherosclerotic calcification of the abdominal aorta is seen which tapers normally. Air and stool is seen throughout the colon. A large ventral hernia is seen which contains nondilated small and large bowel loops is again noted. This measures 12 cm in greatest transverse diameter. Images through the pelvis demonstrate the urinary bladder distended with urine. A moderate amount of stool is seen within the sigmoid colon and rectum. No free fluid is seen. The patient appears to be post hysterectomy. No adnexal mass is noted. No free fluid is seen. A spinal stimulator is seen in place. The osseous structures are unchanged. IMPRESSION: No acute abnormality is seen. Electronically signed by: Eligio Loya MD (11/10/2017 8:36 PM) [facility]
[2017-11-10 20:46] LABS: BACTERIA,URINE FEW /HPF (0-FEW); BILIRUBIN,URINE NEG (NEG); CLARITY,URINE CLEAR; COLOR,URINE YELLOW; GLUCOSE,URINE NEG (NEG); NITRITE,URINE NEG (NEG); RBC,URINE 0 /HPF (0-2); UROBILINOGEN,URINE 0.2 mg/dL (0.2 mg/dL)
--- NOTE | 2017-11-10 22:07 | RAD ---
PA chest radiograph 11/10/2017 Clinical History: Coronary artery disease. Recent [place]. A PA digital radiograph of the chest was obtained. Comparison study is dated 06/04/2017. A spinal stimulator is unchanged position. The cardiac silhouette is mildly enlarged. The thoracic aorta is mildly tortuous. No acute pulmonary infiltrate is seen. No pleural effusion or pneumothorax is noted. The osseous structures are unchanged. Impression: No acute abnormality is seen. Electronically signed by: Eligio Loya MD (11/10/2017 10:03 PM) [facility]
[2017-11-10] MEDS ORDERED: SULF1TAB24 PO (22:25)
[2017-11-10] MEDS ORDERED: cefTRIAXone IV Push 1 GM VIAL. IVP ONE (22:30)
[2017-11-10 22:36] VITALS: BP 128/71
--- NOTE | 2017-11-11 06:33 | EKG ---
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
== END 2017-11-10 22:44 | disposition home or self-care (01) ==
LOC: ER 17:50
DX: N39.0 Urinary tract infection, site not specified (principal); K43.9 Ventral hernia without obstruction or gangrene; I25.10 Atherosclerotic heart disease of native coronary artery without angina pectoris; J44.9 Chronic obstructive pulmonary disease, unspecified; F32.9 Major depressive disorder, single episode, unspecified; E11.9 Type 2 diabetes mellitus without complications; K21.9 Gastro-esophageal reflux disease without esophagitis; Z87.440 Personal history of urinary (tract) infections; Z90.710 Acquired absence of both cervix and uterus; Z88.5 Allergy status to narcotic agent; Z88.8 Allergy status to other drugs, medicaments and biological substances; Z91.018 Allergy to other foods
CPT/HCPCS: 36415; 71045; 74177; 80053; 81001; 83690; 84484; 85007; 85025; 87086; 93005; 96374; 99285; J0696; J7040; Q9967

== ENCOUNTER 2017-11-21 07:53 | Emergency (ER) | payer MEDICARE, OTHER ==
[~2017-11-21] VITALS: Ht 144.8 cm; Wt 67.1 kg
[~2017-11-21 07:53] MED LIST changes: +SULF1TAB24 PO
--- NOTE | 2017-11-21 08:16 | PHYS DOC ---
Past History Past Medical History: CAD, COPD, Depression, Diabetes, GERD, UTI Past Surgical History: Appendectomy, Cholecystectomy, Hysterectomy, Spleenectomy, Tonsillectomy Smoking: Non-smoker Alcohol Use: None Drug Use: None Adult General Chief Complaint Chief Complaint: GI PROBLEM HPI HPI Patient is a 72-year-old female who presents for evaluation of abdominal pain and states that her known hernia is "sticking out more" than it normally does and is hurting. She states that she lifted something that only weighed about 10 pounds yesterday and afterwards noticed increased pain and swelling. She had difficulty sleeping last night because of the pain. She reports a history of previous hernia surgery, cholecystectomy, hysterectomy, splenectomy, and appendectomy. She's had a bowel movement since the pain and swelling was noted without difficulty. She has had some mild nausea but no vomiting. She is alert and oriented 3, calm, and appears to be no distress at this time. She states that Dr. Ge is her primary care physician. Review of Systems Review of Systems Constitutional: Denies fever or chills [] Eyes: Denies change in visual acuity, redness, or eye pain [] HENT: Denies nasal congestion or sore throat [] Respiratory: Denies cough or shortness of breath [] Cardiovascular: No additional information not addressed in HPI [] GI: Denies vomiting, bloody stools or diarrhea [] +abd pain, +hernia - larger than usual : Denies dysuria or hematuria [] Musculoskeletal: Denies back pain or joint pain [] Integument: Denies rash or skin lesions [] Neurologic: Denies headache, focal weakness or sensory changes [] Endocrine: Denies polyuria or polydipsia [] All other systems were reviewed and found to be within normal limits, except as documented in this note. Allergies Allergies Allergies Coded Allergies Type Severity Reaction Last Updated Verified grapefruit Allergy Intermediate 12/19/14 Yes hydromorphone Allergy Intermediate 12/19/14 Yes metoclopramide Allergy Intermediate 09/03/14 Yes morphine Allergy Intermediate 09/03/14 Yes phenytoin Allergy Intermediate 09/03/14 Yes temazepam Allergy Intermediate 12/19/14 Yes trazodone Allergy Intermediate 09/03/14 Yes zolpidem Allergy Intermediate 03/24/17 Yes ropinirole Allergy Unknown 06/22/17 Yes Physical Exam Physical Exam Constitutional: Well developed, well nourished, no acute distress, non-toxic appearance. [] obese, calm HENT: Normocephalic, atraumatic, bilateral external ears normal, oropharynx moist, no oral exudates, nose normal. [] Eyes: PERRLA, EOMI, conjunctiva normal, no discharge. [] Neck: Normal range of motion, no tenderness, supple, no stridor. [] Cardiovascular:Heart rate regular rhythm, no murmur [] Lungs & Thorax: Bilateral breath sounds clear to auscultation [] Abdomen: Bowel sounds normal, soft, no tenderness, no masses, no pulsatile masses. [] +hernia inferior to umbilicus and slightly left of midline, not reducible, moderately +ttp, high-pitched bowel sounds are noted, remainder of abdominal examination is unremarkable Skin: Warm, dry, no erythema, no rash. [] Back: No tenderness, no CVA tenderness. [] Extremities: No tenderness, no cyanosis, no clubbing, ROM intact, no edema. [] Neurologic: Alert and oriented X 3, normal motor function, normal sensory function, no focal deficits noted. [] Psychologic: Affect normal, judgement normal, mood normal. [] Current Patient Data Lab Results Laboratory Tests Test 11/21/17 08:20 11/21/17 08:43 11/21/17 09:30 White Blood Count 23.0 x10^3/uL Red Blood Count 3.42 x10^6/uL Hemoglobin 10.2 g/dL Hematocrit 31.1 % Mean Corpuscular Volume 91 fL Mean Corpuscular Hemoglobin 30 pg Mean Corpuscular Hemoglobin Concent 33 g/dL Red Cell Distribution Width 14.4 % Platelet Count 534 x10^3/uL Neutrophils (%) (Auto) 64 % Lymphocytes (%) (Auto) 25 % Monocytes (%) (Auto) 7 % Eosinophils (%) (Auto) 3 % Basophils (%) (Auto) 1 % Neutrophils # (Auto) 14.8 x10^3uL Lymphocytes # (Auto) 5.7 x10^3/uL Monocytes # (Auto) 1.5 x10^3/uL Eosinophils # (Auto) 0.7 x10^3/uL Basophils # (Auto) 0.3 x10^3/uL Segmented Neutrophils % 60 % Band Neutrophils % 2 % Lymphocytes % 29 % Monocytes % 8 % Eosinophils % 1 % Platelet Estimate Increased Large Platelets Occ Polychromasia Slight Tear Drop Cells Occ Ovalocytes Occ Sodium Level 138 mmol/L Potassium Level 4.3 mmol/L Chloride Level 103 mmol/L Carbon Dioxide Level 22 mmol/L Anion Gap 13 Blood Urea Nitrogen 34 mg/dL Creatinine 1.2 mg/dL Estimated GFR (Cockcroft-Gault) 44.2 BUN/Creatinine Ratio 28 Glucose Level 162 mg/dL Calcium Level 9.2 mg/dL Total Bilirubin 0.2 mg/dL Aspartate Amino Transf (AST/SGOT) 17 U/L Alanine Aminotransferase (ALT/SGPT) 21 U/L Alkaline Phosphatase 69 U/L Total Protein 7.7 g/dL Albumin 3.2 g/dL Albumin/Globulin Ratio 0.7 Lipase 121 U/L Urine Collection Type Unknown Urine Color Yellow Urine Clarity Clear Urine pH 5.5 Urine Specific [place] 1.010 Urine Protein Neg Urine Glucose (UA) Neg mg/dL Urine Ketones (Stick) Neg mg/dL Urine Blood Neg Urine Nitrite Neg Urine Bilirubin Neg Urine Urobilinogen Dipstick 0.2 mg/dL Urine Leukocyte Esterase Neg Urine RBC 1-2 /HPF Urine WBC 1-4 /HPF Urine Squamous Epithelial Cells Few /LPF Urine Transitional Epithelial Cells Occ /LPF Urine Bacteria 0 /HPF Current Medications Medications (Trade) Dose Ordered Sig/Kristin Route PRN Reason Start Time Stop Time Status Last Admin Dose Admin Fentanyl Citrate (Fentanyl 2ml Vial) 50 mcg PRN Q15MIN PRN IV PAIN GREATER THAN 3/10 11/21/17 08:15 11/22/17 08:14 11/21/17 08:29 Sodium Chloride 1,000 ml @ 100 mls/hr Q10H IV 11/21/17 08:15 11/21/17 18:14 11/21/17 08:25 Ondansetron HCl (Zofran) 4 mg 1X ONCE IV 11/21/17 08:15 11/21/17 08:16 DC 11/21/17 08:28 Iohexol (Omnipaque 240 Mg/ml) 50 ml STK-MED ONCE .ROUTE 11/21/17 08:31 11/21/17 08:32 DC Iohexol (Omnipaque 300 Mg/ml) 75 ml 1X ONCE IV 11/21/17 09:30 11/21/17 09:31 DC EKG EKG [] Radiology/Procedures Radiology/Procedures [address] [id number] IMAGING REPORT Signed PATIENT: PAMELA CAIN ACCOUNT: [id number] : 1945 LOCATION: ER AGE: 72 SEX: F EXAM STATUS: REG ER ORD. PHYSICIAN: ZULEYKA MONTAGUE DO REASON: abd pain, states hernia is "sticking out more and hurts" PROCEDURE: CT ABD PELV W/ORAL&IV CONTRAST CT abdomen and pelvis with contrast History: Painful hernia, abdominal pain Technique: After the administration of oral and intravenous contrast, CT imaging was performed of the abdomen and pelvis. Multiplanar images are reviewed. Exposure: One or more of the following individualized dose reduction techniques were utilized for this examination: 1. Automated exposure control 2. Adjustment of the mA and/or kV according to patient size 3. Use of iterative reconstruction technique. Contrast: 60 cc Omnipaque 300 Comparison: November 10, 2017 Findings: The entirety of the lateral flank regions are not included due to patient's size. There is prominent coronary calcification. No new focal abnormality is identified of the liver or pancreas. 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 There has been cholecystectomy. Both kidneys enhance, no hydronephrosis. There is lobulated contour of the bilateral kidneys. There is scattered mild plaque of the abdominal aorta and iliac arteries. There is again ventral left paracentral hernia containing segments of the small bowel and also short segment of the transverse colon. There is also a small right paracentral ventral hernia containing short segment of the small bowel. Bowel is not significantly dilated. There may be some small bowel wall thickening in the left abdomen. There is no evidence of bowel obstruction. There is no free air or free fluid. There is again lytic focus right L2 vertebral body more likely hemangioma. There is thoracic spinal stimulator device, lead tips terminating T8-9. There is multilevel lumbar facet degenerative change. There is vacuum disc disease L5-S1. Impression: 1. There is again left paracentral ventral hernia containing segments of the transverse colon and nondilated small bowel, also small right paracentral ventral hernia containing short segment of small bowel. There is no evidence of bowel obstruction. There is appearance of possible small bowel wall thickening in the left abdomen which could be due to enteritis. 2. There is prominent coronary calcification. Electronically signed by: Maya Mauricio MD (11/21/2017 10:14 AM) [facility] DICTATED AND SIGNED BY: MAYA MAURICIO MD DATE: 11/21/17 1006 CC: ZULEYKA MONTAGUE DO; JAYMIE GE MD ~ Course & Med Decision Making Course & Med Decision Making Pertinent Labs and Imaging studies reviewed. (See chart for details) @1142 - Patient updated on lab and imaging results. Of note her white blood cell count has been elevated many times in the past usually between 14 and 20. Workup today fails reveal any emergent pathology. The CT scan suggests there could be some enteritis. A result the patient will be sent home with Cipro and Flagyl. She stable for discharge at this time will follow-up with her primary care physician in the next 2-3 days. Advised patient to return to the emergency Department immediately for any new or worsening symptoms. Dragon Disclaimer Dragon Disclaimer This electronic medical record was generated, in whole or in part, using a voice recognition dictation system. Departure Departure: Impression: Primary Impression: Enteritis Additional Impressions: Abdominal pain Ventral hernia, recurrent Disposition: 01 HOME, SELF-CARE Condition: STABLE Referrals: JAYMIE GE MD (PCP) Patient Instructions: Hernia, Viral Gastroenteritis Additional Instructions: Take the medications as prescribed. Return to the ER immediately for any new or worsening symptoms. Follow-up with your doctor in the next 2-3 days. Scripts Ciprofloxacin Hcl (CIPRO) 500 Mg Tablet 1 TAB PO BID, #14 TAB Prov: ZULEYKA MONTAGUE DO 11/21/17 Metronidazole (FLAGYL) 500 Mg Tablet 1 TAB PO TID for 7 Days, #21 TAB Prov: ZULEYKA MONTAGUE DO 11/21/17 Hydrocodone Bit/Acetaminophen (NORCO 5-325 TABLET) 1 Each Tablet 1 TAB PO PRN Q6HRS PRN for PAIN, #20 TAB 0 Refills Prov: ZULEYKA MONTAGUE DO 11/21/17 Problem Qualifiers ZULEYAK MONTAGUE DO Nov 21, 2017 08:16
[2017-11-21] MEDS: IV NORMAL SALINE 1,000ML 1,000 ML IV SCH (08:25)
[2017-11-21] MEDS: ONDANSETRON PF 4 MG/2 ML VIAL. IV ONE (08:28)
[2017-11-21] MEDS ORDERED: IOHEXOL 240 MG/ML 50ML VIAL. ONE (08:31)
[2017-11-21 08:36] LABS: BASO # 0.3 x10^3/uL (0.0-0.2); BASO % 1 % (0-3); EOS # 0.7 x10^3/uL (0.0-0.7); EOS % 3 % (0-3); HEMATOCRIT 31.1 % (36.0-47.0); HEMOGLOBIN 10.2 g/dL (12.0-15.5); LYMPH # 5.7 x10^3/uL (1.0-4.8); LYMPH % 25 % (24-48); MEAN CORPUSCULAR HEMOGLOBIN 30 pg (25-35); MEAN CORPUSCULAR HGB CONC 33 g/dL (31-37); MEAN CORPUSCULAR VOLUME 91 fL (79-100); MONO # 1.5 x10^3/uL (0.0-1.1); MONO % 7 % (0-9); NEUT # 14.8 x10^3uL (1.8-7.7); NEUT % 64 % (31-73); PLATELET COUNT 534 x10^3/uL (140-400); RED BLOOD COUNT 3.42 x10^6/uL (3.50-5.40); RED CELL DISTRIBUTION WIDTH 14.4 % (11.5-14.5)
[2017-11-21 09:03] LABS: % BANDS 2 % (0-9); % EOS 1 % (0-5); % LYMPHS 29 % (24-48); % MONOS 8 % (0-10); % SEGS 60 % (35-66)
[2017-11-21 09:05] LABS: OVALOCYTES OCC; PLT ESTIMATE INCREASED (ADEQUATE); TEAR DROP CELLS OCC
[2017-11-21 09:06] LABS: POLYCHROMASIA SLIGHT
[2017-11-21 09:09] LABS: ALBUMIN 3.2 g/dL (3.4-5.0); ALBUMIN/GLOBULIN RATIO 0.7 (1.0-1.7); CALCIUM 9.2 mg/dL (8.5-10.1); CREATININE 1.2 mg/dL (0.6-1.0); POTASSIUM 4.3 mmol/L (3.5-5.1); TOTAL BILIRUBIN 0.2 mg/dL (0.2-1.0); TOTAL PROTEIN 7.7 g/dL (6.4-8.2)
[2017-11-21 09:10] LABS: GFR 44.2
[2017-11-21] MEDS ORDERED: IOHEXOL 300 MG/ML 75 ML VIAL. IV ONE (09:30)
[2017-11-21 09:49] LABS: BACTERIA,URINE 0 /HPF (0-FEW); BILIRUBIN,URINE NEG (NEG); CLARITY,URINE CLEAR; COLOR,URINE YELLOW; GLUCOSE,URINE NEG (NEG); NITRITE,URINE NEG (NEG); SQUAMOUS EPITHELIAL CELL,UR FEW /LPF; UROBILINOGEN,URINE 0.2 mg/dL (0.2 mg/dL)
--- NOTE | 2017-11-21 10:17 | RAD ---
CT abdomen and pelvis with contrast History: Painful hernia, abdominal pain Technique: After the administration of oral and intravenous contrast, CT imaging was performed of the abdomen and pelvis. Multiplanar images are reviewed. Exposure: One or more of the following individualized dose reduction techniques were utilized for this examination: 1. Automated exposure control 2. Adjustment of the mA and/or kV according to patient size 3. Use of iterative reconstruction technique. Contrast: 60 cc Omnipaque 300 Comparison: November 10, 2017 Findings: The entirety of the lateral flank regions are not included due to patient's size. There is prominent coronary calcification. No new focal abnormality is identified of the liver or pancreas. 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 There has been cholecystectomy. Both kidneys enhance, no hydronephrosis. There is lobulated contour of the bilateral kidneys. There is scattered mild plaque of the abdominal aorta and iliac arteries. There is again ventral left paracentral hernia containing segments of the small bowel and also short segment of the transverse colon. There is also a small right paracentral ventral hernia containing short segment of the small bowel. Bowel is not significantly dilated. There may be some small bowel wall thickening in the left abdomen. There is no evidence of bowel obstruction. There is no free air or free fluid. There is again lytic focus right L2 vertebral body more likely hemangioma. There is thoracic spinal stimulator device, lead tips terminating T8-9. There is multilevel lumbar facet degenerative change. There is vacuum disc disease L5-S1. Impression: 1. There is again left paracentral ventral hernia containing segments of the transverse colon and nondilated small bowel, also small right paracentral ventral hernia containing short segment of small bowel. There is no evidence of bowel obstruction. There is appearance of possible small bowel wall thickening in the left abdomen which could be due to enteritis. 2. There is prominent coronary calcification. Electronically signed by: Rachid Roe MD (11/21/2017 10:14 AM) [facility]
[2017-11-21] MEDS ORDERED: METR500T PO (11:52)
[2017-11-21] MEDS ORDERED: CIPR500T94 PO (11:52)
[2017-11-21] MEDS ORDERED: HYDR-971 PO (11:52)
[2017-11-21 12:05] VITALS: BP 117/74
== END 2017-11-21 12:15 | disposition home or self-care (01) ==
LOC: ER 07:53
DX: K43.2 Incisional hernia without obstruction or gangrene (principal); K52.9 Noninfective gastroenteritis and colitis, unspecified; J44.9 Chronic obstructive pulmonary disease, unspecified; I25.10 Atherosclerotic heart disease of native coronary artery without angina pectoris; E11.9 Type 2 diabetes mellitus without complications; K21.9 Gastro-esophageal reflux disease without esophagitis; Z87.440 Personal history of urinary (tract) infections; Z90.89 Acquired absence of other organs; Z90.49 Acquired absence of other specified parts of digestive tract; Z90.710 Acquired absence of both cervix and uterus; Z88.5 Allergy status to narcotic agent; Z88.8 Allergy status to other drugs, medicaments and biological substances; Z91.018 Allergy to other foods
CPT/HCPCS: 36415; 74177; 80053; 81001; 83690; 85007; 85025; 96361; 96374; J2405; J3010; 99285-25; J7030

== ENCOUNTER 2017-11-23 14:49 | Inpatient (IN) | payer MEDICARE, OTHER ==
[~2017-11-23] VITALS: Ht 146.1 cm; Wt 66.2 kg
[~2017-11-23 14:49] MED LIST changes: +HYDR-971 PO; +METR500T PO
[2017-11-23 15:37] VITALS: BP 139/81
[2017-11-23] MEDS: IV NORMAL SALINE 1,000ML 1,000 ML IV SCH ×2 (16:00→18:00)
[2017-11-23] MEDS ORDERED: HYDROcodone/APAP 5/325MG 1 TAB TABLET PO PRN ×2 (16:00→18:15)
[2017-11-23] MEDS ORDERED: ONDANSETRON ODT 4 MG TAB.RAPDIS PO PRN (16:00)
[2017-11-23] MEDS ORDERED: ACETAMINOPHEN 325 MG TABLET PO PRN (16:00)
[2017-11-23] MEDS ORDERED: ALBU8.5H8 INH (16:25)
[2017-11-23] MEDS ORDERED: PANT40TA5 PO (16:25)
[2017-11-23] MEDS ORDERED: HYDR-2758 PO (16:25)
[2017-11-23] MEDS ORDERED: NORT25CA PO (16:25)
[2017-11-23] MEDS ORDERED: ATOR10TA PO (16:25)
[2017-11-23] MEDS ORDERED: FLUT9.9S NS (16:25)
[2017-11-23] MEDS ORDERED: CLON0.5T PO (16:25)
[2017-11-23] MEDS ORDERED: RANI150T2 PO (16:25)
[2017-11-23] MEDS ORDERED: CARB200T PO (16:25)
[2017-11-23] MEDS ORDERED: MIRT15TA PO (16:25)
[2017-11-23] MEDS ORDERED: LOPE2CAP PO (16:25)
[2017-11-23] MEDS ORDERED: METO-239 PO (16:25)
[2017-11-23] MEDS ORDERED: SODI650T PO (16:25)
[2017-11-23] MEDS ORDERED: METF10003 PO (16:25)
[2017-11-23] MEDS ORDERED: CLOP75TA PO (16:25)
[2017-11-23] MEDS ORDERED: INSU100I27 SQ (16:25)
[2017-11-23] MEDS ORDERED: ZONI100C PO (16:25)
[2017-11-23] MEDS ORDERED: BUPR150T8 PO (16:25)
[2017-11-23] MEDS ORDERED: IPRA3AMP29 NEB (16:25)
[2017-11-23] MEDS ORDERED: MONT10TA9 PO (16:25)
[2017-11-23] MEDS ORDERED: CIPR500T PO (16:25)
[2017-11-23] MEDS ORDERED: METR500T PO (16:25)
[2017-11-23] MEDS ORDERED: MULT-245 PO (16:25)
[2017-11-23] MEDS ORDERED: ERYT250T14 PO (16:25)
[2017-11-23] MEDS ORDERED: BUSP10TA PO (16:25)
[2017-11-23] MEDS ORDERED: DULO60CA6 PO (16:25)
[2017-11-23] MEDS ORDERED: LISI-338 PO (16:25)
[2017-11-23] MEDS ORDERED: CYAN10005 PO (16:25)
[2017-11-23] MEDS ORDERED: ASCO500T2 PO (16:25)
[2017-11-23] MEDS ORDERED: ASPI-630 PO (16:25)
[2017-11-23] MEDS ORDERED: INSU100I17 SQ (16:25)
[2017-11-23] MEDS ORDERED: OMEG-33 PO (16:25)
[2017-11-23] MEDS ORDERED: ROPI1TAB PO (16:25)
[2017-11-23] MEDS ORDERED: AMLO5TAB4 PO (16:25)
[2017-11-23] MEDS ORDERED: DICL100G18 TP (16:25)
[2017-11-23 16:47] LABS: BASO # 0.1 x10^3/uL (0.0-0.2); BASO % 1 % (0-3); EOS # 0.6 x10^3/uL (0.0-0.7); EOS % 4 % (0-3); HEMATOCRIT 31.5 % (36.0-47.0); HEMOGLOBIN 10.4 g/dL (12.0-15.5); LYMPH # 5.2 x10^3/uL (1.0-4.8); LYMPH % 37 % (24-48); MEAN CORPUSCULAR HEMOGLOBIN 30 pg (25-35); MEAN CORPUSCULAR HGB CONC 33 g/dL (31-37); MEAN CORPUSCULAR VOLUME 89 fL (79-100); MONO # 1.3 x10^3/uL (0.0-1.1); MONO % 9 % (0-9); NEUT % 49 % (31-73); PLATELET COUNT 538 x10^3/uL (140-400); RED BLOOD COUNT 3.52 x10^6/uL (3.50-5.40); RED CELL DISTRIBUTION WIDTH 14.4 % (11.5-14.5); WHITE BLOOD COUNT 14.3 x10^3/uL (4.0-11.0)
[2017-11-23 17:02] LABS: ALBUMIN 3.4 g/dL (3.4-5.0); ALBUMIN/GLOBULIN RATIO 0.7 (1.0-1.7); CALCIUM 9.2 mg/dL (8.5-10.1); CREATININE 1.2 mg/dL (0.6-1.0); GFR 44.2; POTASSIUM 4.1 mmol/L (3.5-5.1); TOTAL BILIRUBIN 0.1 mg/dL (0.2-1.0); TOTAL PROTEIN 8.3 g/dL (6.4-8.2)
[2017-11-23] MEDS ORDERED: CHOL10003 PO (17:08)
[2017-11-23 17:22] LABS: BACTERIA,URINE 0 /HPF (0-FEW); BILIRUBIN,URINE NEG (NEG); CLARITY,URINE CLEAR; COLOR,URINE YELLOW; GLUCOSE,URINE 500 mg/dL (NEG); NITRITE,URINE NEG (NEG); RBC,URINE 0 /HPF (0-2); UROBILINOGEN,URINE 0.2 mg/dL (0.2 mg/dL); WBC,URINE RARE /HPF (0-4)
[2017-11-23] MEDS ORDERED: ALBUTEROL SULFATE 8GM INHALER. INH PRN (17:45)
[2017-11-23] MEDS ORDERED: PIP/TAZO PER PHARMACY MC PRN (17:45)
[2017-11-23 18:12] VITALS: BP 157/85
[2017-11-23] MEDS ORDERED: LOPERAMIDE 2 MG CAPSULE PO PRN (18:15)
[2017-11-23] MEDS ORDERED: ALBUTEROL SULFATE 2.5 MG/3 ML NEBU. NEB PRN (18:30)
[2017-11-23] MEDS: IPRATRPIUM/ALBUTEROL 0.5/2.5MG 3 ML NEBU. NEB SCH (20:46)
[2017-11-23] MEDS ORDERED: NORTRIPTYLINE 25 MG CAPSULE PO SCH (21:00)
[2017-11-23] MEDS ORDERED: rOPINIRole 1 MG TABLET. PO SCH (21:00)
[2017-11-23] MEDS ORDERED: ATORVASTATIN CALCIUM 10 MG TABLET. PO SCH (21:00)
[2017-11-23] MEDS ORDERED: carBAMazepine 200 MG TABLET PO SCH (21:00)
[2017-11-23] MEDS ORDERED: MONTELUKAST 10 MG TABLET. PO SCH (21:00)
[2017-11-23] MEDS ORDERED: MIRTAZAPINE 15 MG TABLET PO SCH (21:00)
[2017-11-23] MEDS: DICLOFENAC SODIUM 1% TOPICAL GEL 100GM TUBE. TP SCH (21:09)
[2017-11-23] MEDS: CIPROFLOXACIN 200MG PREMIX 100 ML IV SCH (21:10)
[2017-11-23] MEDS: busPIRone 10 MG TABLET. PO SCH (21:10)
[2017-11-23] MEDS: OMEGA-3 FATTY ACIDS/FISH OIL 1,000 MG CAPSULE. PO SCH (21:11)
[2017-11-23] MEDS: clonazePAM 0.5 MG TABLET PO SCH (21:11)
[2017-11-23] MEDS: buPROPion SR 150 MG TABLET.SA PO SCH (21:11)
[2017-11-23] MEDS: ZONISAMIDE 100 MG CAPSULE. PO SCH (21:12)
[2017-11-23] MEDS: INSULIN GLARGINE 300 UNITS/3 ML INSULN.PEN. SQ SCH (21:16)
[2017-11-23 22:47] VITALS: BP 131/76
[2017-11-24] MEDS: PIPERACILLIN/TAZOBACTAM 2.25 GM in IV NORMAL SALINE 50ML 50 ML IV SCH ×3 (00:28→12:13)
[2017-11-24] MEDS: IV NORMAL SALINE 1,000ML 1,000 ML IV SCH ×2 (02:00→08:24)
[2017-11-24] MEDS: IPRATRPIUM/ALBUTEROL 0.5/2.5MG 3 ML NEBU. NEB SCH ×2 (04:57→11:15)
[2017-11-24 05:01] VITALS: BP 135/75
[2017-11-24 06:19] LABS: BASO # 0.1 x10^3/uL (0.0-0.2); BASO % 1 % (0-3); EOS # 0.7 x10^3/uL (0.0-0.7); EOS % 4 % (0-3); HEMATOCRIT 29.1 % (36.0-47.0); HEMOGLOBIN 9.6 g/dL (12.0-15.5); LYMPH # 7.8 x10^3/uL (1.0-4.8); LYMPH % 43 % (24-48); MEAN CORPUSCULAR HEMOGLOBIN 30 pg (25-35); MEAN CORPUSCULAR HGB CONC 33 g/dL (31-37); MEAN CORPUSCULAR VOLUME 90 fL (79-100); MONO # 1.8 x10^3/uL (0.0-1.1); MONO % 10 % (0-9); NEUT # 7.8 x10^3uL (1.8-7.7); NEUT % 43 % (31-73); PLATELET COUNT 490 x10^3/uL (140-400); RED BLOOD COUNT 3.25 x10^6/uL (3.50-5.40); RED CELL DISTRIBUTION WIDTH 14.4 % (11.5-14.5); WHITE BLOOD COUNT 18.2 x10^3/uL (4.0-11.0)
[2017-11-24 06:41] LABS: CALCIUM 8.7 mg/dL (8.5-10.1); CREATININE 1.1 mg/dL (0.6-1.0); GFR 48.8; POTASSIUM 3.7 mmol/L (3.5-5.1)
[2017-11-24 07:00] LABS: % BANDS 3 % (0-9); % EOS 4 % (0-5); % LYMPHS 42 % (24-48); % MONOS 3 % (0-10); % SEGS 41 % (35-66)
[2017-11-24 07:02] LABS: PLT ESTIMATE INCREASED (ADEQUATE); SCHISTOCYTES OCC; SPHEROCYTES OCC
[2017-11-24 07:03] LABS: OVALOCYTES OCC
[2017-11-24] MEDS ORDERED: PANTOPRAZOLE 40 MG TABLET. PO SCH (07:30)
--- NOTE | 2017-11-24 07:54 | RAD ---
Abdomen, 2 views, 11/23/2017: HISTORY: Lower abdominal pain, nausea There is surgical clips in the right upper quadrant. Spinal stimulator leads extend into the lower thoracic spinal canal. There is contrast material in the left colon from previous diagnostic study. There is a moderate amount stool in the right colon. The bowel loops are not dilated. No free air is present in the abdomen. There is no evidence of organomegaly. IMPRESSION: 1. Residual contrast in the left colon from a recent CT study. 2. No acute abdominal abnormality is detected. Electronically signed by: Zana Aviles MD (11/24/2017 7:51 AM) [facility]
[2017-11-24] MEDS ORDERED: metFORMIN 500 MG TABLET PO SCH (08:00)
[2017-11-24] MEDS ORDERED: ASPIRIN 81 MG TAB.CHEW PO SCH (08:00)
[2017-11-24] MEDS: CIPROFLOXACIN 200MG PREMIX 100 ML IV SCH (08:17)
[2017-11-24] MEDS: DICLOFENAC SODIUM 1% TOPICAL GEL 100GM TUBE. TP SCH ×2 (08:21→12:12)
[2017-11-24] MEDS: buPROPion SR 150 MG TABLET.SA PO SCH (08:23)
[2017-11-24] MEDS: clonazePAM 0.5 MG TABLET PO SCH ×2 (08:23→12:11)
[2017-11-24] MEDS: busPIRone 10 MG TABLET. PO SCH (08:23)
[2017-11-24] MEDS: OMEGA-3 FATTY ACIDS/FISH OIL 1,000 MG CAPSULE. PO SCH ×2 (08:23→15:21)
[2017-11-24] MEDS: ZONISAMIDE 100 MG CAPSULE. PO SCH ×2 (08:25→15:21)
[2017-11-24] MEDS: INSULIN LISPRO 300 UNITS/3 ML INSULN.PEN. SQ SCH ×2 (08:36→12:20)
[2017-11-24] MEDS: INSULIN GLARGINE 300 UNITS/3 ML INSULN.PEN. SQ SCH (08:37)
[2017-11-24] MEDS ORDERED: FLUTICASONE 50MCG/NASAL SPRAY 16GM BOTTLE. NS SCH (09:00)
[2017-11-24] MEDS ORDERED: LISINOPRIL 5 MG TABLET. PO SCH (09:00)
[2017-11-24] MEDS ORDERED: SODIUM BICARBONATE 650 MG TABLET PO SCH (09:00)
[2017-11-24] MEDS ORDERED: DULoxetine HCL 60 MG CAPSULE.DR PO SCH (09:00)
[2017-11-24] MEDS ORDERED: METOPROLOL SUCC 24HR ER 25 MG TAB.ER.24H. PO SCH (09:00)
[2017-11-24] MEDS ORDERED: amLODIPine BESYLATE 5 MG TABLET PO SCH (09:00)
[2017-11-24] MEDS ORDERED: MULTIVITAMIN with MINERAL TABLET. PO SCH (09:00)
[2017-11-24] MEDS ORDERED: FAMOTIDINE 20 MG TABLET PO SCH (09:00)
[2017-11-24] MEDS ORDERED: CYANOCOBALAMIN (VITAMIN B-12) 1,000 MCG TABLET. PO SCH (09:00)
[2017-11-24] MEDS ORDERED: CLOPIDOGREL BISULFATE 75 MG TABLET PO SCH (09:00)
[2017-11-24 11:17] VITALS: BP 125/72
[2017-11-24 16:02] VITALS: BP 109/67
[2017-11-24] MEDS ORDERED: CIPROFLOXACIN 400MG PREMIX 200 ML IV SCH (21:00)
[2017-11-24] MEDS ORDERED: LACTOBACILLUS RHAMNOSUS GG 1 CAPSULE. PO SCH (21:00)
--- NOTE | 2017-11-25 10:52 | DS ---
DATE OF DISCHARGE: 11/24/2017 HOSPITAL COURSE: The patient is a 72-year-old female. She was having severe abdominal pain, came in through the office and was evaluated there. The patient's CAT scan had been taken a day previous and noted that the patient had severe ventral hernia containing segments of the transverse colon and nondilated small bowel; however, the patient's white count was noted to be as high as 18,000, hemoglobin was dropping down to 9.6 and 29. As a result of the increase in her white count she had been placed on IV antibiotic therapy. Her lactic acid was elevated. She was transferred down to a surgical consultation down to [facility] per her request and the like. In any case, the patient tolerated the procedure and her stay here. There were no complications. She received IV antibiotic therapy and then transferred for surgical consultation. IMPRESSION: Colitis, hernia of the small bowel, type 2 diabetes, leukocytosis, morbid obesity. PLAN: The patient will be transferred via ambulance down to that medical center down there at [place]. JAYMIE GE MD DR: MAURIZIO/luis angel JOB#: [id number] / [id number]
== END 2017-11-24 16:50 | disposition short-term general hospital (02) | DRG 872 ==
LOC: 1 SOUTH 15:11
PROVIDERS: ADMIT Family Medicine; ATTEND Family Medicine
DX: A41.9 Sepsis, unspecified organism (principal); K42.0 Umbilical hernia with obstruction, without gangrene; N39.0 Urinary tract infection, site not specified; E11.9 Type 2 diabetes mellitus without complications; E66.01 Morbid (severe) obesity due to excess calories; R30.0 Dysuria; K45.8 Other specified abdominal hernia without obstruction or gangrene; K52.9 Noninfective gastroenteritis and colitis, unspecified; Z68.31 Body mass index [BMI] 31.0-31.9, adult; Z88.5 Allergy status to narcotic agent; Z88.8 Allergy status to other drugs, medicaments and biological substances; Z79.899 Other long term (current) drug therapy; Z83.3 Family history of diabetes mellitus
CPT/HCPCS: 36415; 74021; 74177; 80048; 80053; 81001; 82947; 83605; 83690; 85007; 85025; 94640; J0744; J1815; J2543; J3490; J7620; J7030

== ENCOUNTER 2017-12-18 17:16 | Emergency (ER) | payer MEDICARE, OTHER ==
[~2017-12-18] VITALS: Ht 144.8 cm; Wt 65.8 kg
[~2017-12-18 17:16] MED LIST changes: -AMLO5TAB2 PO; +AMLO5TAB4 PO; +AMLO5TAB7 PO; +ASPI-630 PO; +ATOR10TA PO; +CARB200T PO; +CHOL10003 PO; +CIPR500T PO; +CLOP75TA PO; +CYAN10005 PO; +ERYT250T14 PO; -ESZO2TAB PO; +ESZO2TAB26 PO; +FLUT9.9S NS; +HYDR-2758 PO; +LOPE2CAP PO; -LOSA25TA4 PO; +LOSA25TA5 PO; -METF10003 PO; +METF10007 PO; +METO-239 PO; +MULT-245 PO; +OMEG-33 PO; +PANT40TA5 PO; +SODI650T PO; +ZONI100C PO
[2017-12-18] MEDS ORDERED: IV NORMAL SALINE 1,000ML 1,000 ML IV SCH (17:34)
--- NOTE | 2017-12-18 17:42 | PHYS DOC ---
Past History Past Medical History: CAD, COPD, Depression, Diabetes, GERD, UTI Past Surgical History: Appendectomy, Cholecystectomy, Hysterectomy, Spleenectomy, Tonsillectomy Additional Past Surgical Histo: several failed hernia surgeries Smoking: Non-smoker Alcohol Use: None Drug Use: None Adult General Chief Complaint Chief Complaint: SYNCOPE HPI HPI Patient is a 72-year-old female who presents to the emergency department via EMS. She states she was sitting down and felt very lightheaded and had a syncopal episode. She states she has felt weak and lightheaded for the past 24 hours. She has had several episodes of vomiting and had generalized abdominal pain. She has been having regular bowel movements without diarrhea or constipation. She denies any shortness of breath or chest pain, headache, numbness, focal weakness, but doesn't at the generalized dizziness, lightheadedness, and fatigue. She has not had any fevers or chills. She is noted to be hypotensive upon arrival with blood pressure about 70/35. Review of Systems Review of Systems Constitutional: Denies fever or chills [] Eyes: Denies change in visual acuity, redness, or eye pain [] HENT: Denies nasal congestion or sore throat [] Respiratory: Denies cough or shortness of breath [] Cardiovascular:The patient denies any shortness of breath, chest pain, palpitations, or orthopnea [] GI: No additional information not addressed in HPI [] : Denies dysuria or hematuria [] Musculoskeletal: Denies back pain or joint pain [] Integument: Denies rash or skin lesions [] Neurologic: Denies headache, focal weakness or sensory changes. Reports generalized weakness and fatigue. [] Endocrine: Denies polyuria or polydipsia [] All other systems were reviewed and found to be within normal limits, except as documented in this note. Allergies Allergies Allergies Coded Allergies Type Severity Reaction Last Updated Verified grapefruit Allergy Intermediate 12/19/14 Yes hydromorphone Allergy Intermediate 12/19/14 Yes metoclopramide Allergy Intermediate 09/03/14 Yes morphine Allergy Intermediate 09/03/14 Yes phenytoin Allergy Intermediate 09/03/14 Yes temazepam Allergy Intermediate 12/19/14 Yes trazodone Allergy Intermediate 09/03/14 Yes zolpidem Allergy Intermediate 03/24/17 Yes ropinirole Allergy Unknown 3/22/18 Yes Physical Exam Physical Exam PHYSICAL EXAM: CONSTITUTIONAL: Well developed, well nourished HEAD: normocephalic, atraumatic EENT: PERRL, EOMI. Conjunctivae normal color, sclerae non-icteric; moist mucous membranes. NECK: Supple, non-tender; no meningismus. LUNGS: Lungs CTA, breathing even and unlabored. Normal air movement. HEART: Regular rate and rhythm, no murmur CHEST: No deformity; non-tender ABDOMEN: The abdomen is soft, there is mild diffuse tenderness to palpation of the abdomen, which is somewhat protuberant. There is questionable hernia palpable in the left mid abdomen without any definite firm or tender bowel loops palpable. Bowel sounds are diminished. EXTREM: Normal ROM; no deformity, no calf tenderness. Weak, but present pedal pulses are palpable in all extremities. There is no pedal edema. SKIN: No rash; no diaphoresis NEURO: Alert; normal speech and cognition; CN's grossly intact; strength grossly intact without focal deficit. BACK: No CVA TTP. EKG EKG [Normal Sinus Rhythm @ 87 BPM, leftward axis, normal intervals, there are non- specific ST/T changes without acute ischemic changes noted. ] Radiology/Procedures Radiology/Procedures [] Course & Med Decision Making Course & Med Decision Making Pertinent Labs and Imaging studies reviewed. (See chart for details) CRITICAL CARE TIME: 45 Minutes, excluding any procedures and care of other patients. 6:00 PM: Patient care was turned over to Dr. Swanson at shift change, pending lab results, disposition, and further resuscitation. The patient will need hospitalization. Report has been given. Severe sepsis with septic shock. Fluid bolus, IV antibiotics given. Blood pressure stabilized. Patient will require hospitalization with available critical care staff and infectious disease consultants. Patient to be transferred to [facility]. Dragon Disclaimer Dragon Disclaimer This electronic medical record was generated, in whole or in part, using a voice recognition dictation system. Departure Departure: Impression: Primary Impression: Syncope Additional Impressions: Abdominal pain Hypotension Condition: GUARDED Referrals: JAYMIE GE MD (PCP) Problem Qualifiers FITZ QUINN MD Dec 18, 2017 17:42 SABRINA SWANSON DO Dec 19, 2017 02:19
--- NOTE | 2017-12-18 17:59 | EKG ---
[address] [address] Test Date: 2017-12-18 Test Time: 17:54:20 Pat Name: PAMELA CAIN Department: Room: Gender: F Covered Button Maker: : 1945 Requested By: FITZ QUINN Order Number: [id number] Reading MD: Cj Casey MD Measurements Intervals [place] Rate: 87 P: 41 RI: 182 QRS: -5 QRSD: 84 T: 58 QT: 366 QTc: 441 Interpretive Statements SINUS RHYTHM Electronically Signed On 12-19-2017 12:48:56 CDT by Cj Casey MD
[2017-12-18] MEDS ORDERED: IV NORMAL SALINE 1,000ML 1,000 ML IV ONE (18:00)
[2017-12-18 18:18] LABS: BASO # 0.3 x10^3/uL (0.0-0.2); BASO % 1 % (0-3); EOS # 0.4 x10^3/uL (0.0-0.7); EOS % 1 % (0-3); HEMATOCRIT 36.6 % (36.0-47.0); HEMOGLOBIN 11.6 g/dL (12.0-15.5); LYMPH # 4.9 x10^3/uL (1.0-4.8); LYMPH % 17 % (24-48); MEAN CORPUSCULAR HEMOGLOBIN 29 pg (25-35); MEAN CORPUSCULAR HGB CONC 32 g/dL (31-37); MEAN CORPUSCULAR VOLUME 92 fL (79-100); MONO # 0.9 x10^3/uL (0.0-1.1); MONO % 3 % (0-9); NEUT # 21.8 x10^3uL (1.8-7.7); NEUT % 77 % (31-73); PLATELET COUNT 512 x10^3/uL (140-400); RED BLOOD COUNT 3.99 x10^6/uL (3.50-5.40); RED CELL DISTRIBUTION WIDTH 14.6 % (11.5-14.5); WHITE BLOOD COUNT 28.4 x10^3/uL (4.0-11.0)
[2017-12-18] MEDS ORDERED: IV NORMAL SALINE 50ML 50 ML ONE (18:24)
[2017-12-18] MEDS ORDERED: cefTRIAXone SODIUM 1 GM VIAL IV ONE (18:24)
[2017-12-18 18:34] LABS: ALBUMIN 3.4 g/dL (3.4-5.0); ALBUMIN/GLOBULIN RATIO 0.8 (1.0-1.7); CALCIUM 9.8 mg/dL (8.5-10.1); CREATININE 1.5 mg/dL (0.6-1.0); GFR 34.1; MAGNESIUM 1.8 mg/dL (1.8-2.4); POTASSIUM 4.5 mmol/L (3.5-5.1); TOTAL BILIRUBIN 0.1 mg/dL (0.2-1.0)
[2017-12-18 18:35] LABS: TOTAL PROTEIN 7.9 g/dL (6.4-8.2)
[2017-12-18] MEDS ORDERED: CONTRAST GIVEN MC PRN (18:45)
[2017-12-18] MEDS ORDERED: MEROPENEM 1 GM VIAL IV ONE ×2 (18:54→18:55)
[2017-12-18] MEDS ORDERED: IV NORMAL SALINE 100ML 100 ML ONE ×2 (18:55)
[2017-12-18] MEDS ORDERED: IOHEXOL 300 MG/ML 75 ML VIAL. IV ONE (19:00)
[2017-12-18 19:08] LABS: % BANDS 13 % (0-9); % BASOS 1 % (0-3); % EOS 2 % (0-5); % LYMPHS 17 % (24-48); % MONOS 3 % (0-10); % SEGS 64 % (35-66); BURR CELLS OCC; HYPOCHROMIA PRESENT; PLATELET CLUMP PRESENT; PLT ESTIMATE INCREASED (ADEQUATE); TOXIC GRANULATION PRESENT
[2017-12-18] MEDS ORDERED: MEROPENEM 1 GM in IV NORMAL SALINE 100ML 100 ML IV ONE (19:15)
--- NOTE | 2017-12-18 19:22 | RAD ---
CT scan of the abdomen and pelvis with contrast 12/18/2017 CLINICAL HISTORY: Abdominal pain with nausea and vomiting and elevated white blood count. TECHNIQUE: After the intravenous administration of 60 cc of Omnipaque 300, contiguous, 5 mm axial sections were obtained through the abdomen and pelvis. One or more of the following individualized dose reduction techniques were utilized for this study: 1. Automated exposure control. 2. Adjustment of the mA and/or kV according to patient size. 3. Use of iterative reconstruction technique. FINDINGS: Comparison study is dated 11/21/2017. Images through the lung bases demonstrate mild cardiomegaly. Extensive coronary artery calcifications are seen. Dependent subsegmental atelectasis is seen involving both lower lobes. The liver, pancreas, adrenal glands and kidneys are within normal limits. Atherosclerotic calcification of the abdominal aorta is seen. The abdominal aorta tapers normally. A stimulator is seen within the superior right gluteal region, unchanged. Surgical clips are seen within the gallbladder fossa consistent with a cholecystectomy. No free fluid or free air is seen within the abdomen. A left paracentral ventral hernia is again seen. This contains both small bowel loops and a portion of the mid transverse colon. The hernia sac measures 11 cm greatest transverse diameter. It does not appear to be causing a bowel obstruction. A large amount of stool is seen throughout the colon. The colon is distended throughout its course. Mild wall thickening of the midportion of the descending colon is seen. Increased density seen within the adjacent fat. These findings could reflect a mild colitis. Images through the pelvis demonstrate the urinary bladder to be contracted. No free fluid is seen. The osseous structures are unchanged. IMPRESSION: 1. Large amount stool is seen throughout the colon extending to the rectum without evidence of bowel obstruction. 2. Mild wall thickening of portions of the descending colon is seen. Increased density is seen within the adjacent fat. These findings could reflect a mild colitis. Electronically signed by: Eligio Loya MD (12/18/2017 7:19 PM) [facility]
[2017-12-18 21:07] LABS: AMORPHOUS SEDIMENT,UR PRESENT /HPF; BACTERIA,URINE FEW /HPF (0-FEW); BILIRUBIN,URINE NEG (NEG); CLARITY,URINE HAZY; COLOR,URINE YELLOW; GLUCOSE,URINE NEG (NEG); HYALINE CASTS, URINE OCC /HPF; NITRITE,URINE NEG (NEG); RBC,URINE 0 /HPF (0-2); UROBILINOGEN,URINE 0.2 mg/dL (0.2 mg/dL)
[2017-12-18 21:20] VITALS: BP 119/90
--- NOTE | 2017-12-18 21:42 | RAD ---
AP portable chest radiograph 12/18/2017 Clinical History: Hypotension and syncope. An AP erect portable digital radiograph of the chest was obtained. Comparison study is dated 11/10/2017. The cardiac silhouette is mildly enlarged. The thoracic aorta is tortuous. No acute pulmonary infiltrate is seen. No pleural effusion or pneumothorax is noted. The osseous structures are unchanged. IMPRESSION: No acute abnormality is seen. Electronically signed by: Eligio Loya MD (12/18/2017 9:38 PM) [facility]
== END 2017-12-18 21:31 | disposition short-term general hospital (02) ==
LOC: ER 17:16
DX: R55 Syncope and collapse (principal); I95.9 Hypotension, unspecified; R10.84 Generalized abdominal pain; I25.10 Atherosclerotic heart disease of native coronary artery without angina pectoris; J44.9 Chronic obstructive pulmonary disease, unspecified; E11.9 Type 2 diabetes mellitus without complications; K21.9 Gastro-esophageal reflux disease without esophagitis; Z87.440 Personal history of urinary (tract) infections; Z90.89 Acquired absence of other organs; Z90.49 Acquired absence of other specified parts of digestive tract; Z90.710 Acquired absence of both cervix and uterus; Z90.81 Acquired absence of spleen; Z88.5 Allergy status to narcotic agent; Z88.8 Allergy status to other drugs, medicaments and biological substances; Z91.018 Allergy to other foods
CPT/HCPCS: 36415; 51702; 71045; 74177; 80053; 81001; 83605; 83690; 83735; 83880; 84484; 85007; 85025; 85610; 85730; 93005; 96365; 96367; 96375; 99285; J0696; J2185; J3010; Q9967; J7030

== ENCOUNTER → 2018-04-16 | Outpatient (CLI) | payer MEDICARE, OTHER ==
[~2018-04-16] MED LIST changes: +ALBU2.5V8 INH; -ALBU8.5H8 INH; +HYDR-2155 PO; -HYDR-2758 PO; +HYDR-3165 PO; -HYDR-971 PO; +IOHEXOL 300 MG/ML 50 ML VIAL. IV ONE; +LOSA25TA11 PO; -LOSA25TA5 PO; -OXYC-327 PO; +OXYC1TAB19 PO
[2018-04-16 10:24] LABS: CREATININE 1.1 mg/dL (0.6-1.0); GFR 48.8
--- NOTE | 2018-04-16 15:56 | RAD ---
CT scan of the head without and with contrast 04/16/2018 Clinical History: Headache with left retro-orbital pain for sometime. Technique: Contiguous, 5 mm axial sections were obtained through the head without and with use of intravenous contrast. 60 cc of Omnipaque 300 were administered intravenously during this examination. One or more of the following individualized dose reduction techniques were utilized for this study: 1. Automated exposure control. 2. Adjustment of the mA and/or kV according to patient size. 3. Use of iterative reconstruction technique. Findings: There is generalized parenchymal atrophy. Areas of decreased attenuation are seen within the periventricular and subcortical white matter of both cerebral hemispheres consistent with areas of small vessel ischemic disease. No acute parenchymal abnormality is seen. No extra-axial fluid collection is noted. No area of abnormal contrast enhancement is seen. No skull fracture is seen. The visualized orbits are within normal limits. Impression: No acute intracranial abnormality is seen. Electronically signed by: Eligio Loya MD (04/16/2018 3:52 PM) [facility]
== END | disposition home or self-care (01) ==
LOC: CT 09:26
PROVIDERS: ATTEND Family Medicine
DX: G31.89 Other specified degenerative diseases of nervous system (principal); J32.8 Other chronic sinusitis; E11.9 Type 2 diabetes mellitus without complications; J44.9 Chronic obstructive pulmonary disease, unspecified
CPT/HCPCS: 36415; 70470; 82565; 84520; Q9967

== ENCOUNTER 2018-04-20 14:32 | Inpatient (IN) | payer MEDICARE, OTHER ==
[~2018-04-20] VITALS: Ht 144.8 cm; Wt 70.5 kg
[~2018-04-20 14:32] MED LIST changes: -IOHEXOL 300 MG/ML 50 ML VIAL. IV ONE
[2018-04-20] MEDS ORDERED: IV NORMAL SALINE 1,000ML 1,000 ML IV ONE (14:45)
--- NOTE | 2018-04-20 14:52 | PHYS DOC ---
Past History Past Medical History: CAD, COPD, Depression, Diabetes, GERD, UTI Past Surgical History: Appendectomy, Cholecystectomy, Hysterectomy, Spleenectomy, Tonsillectomy Additional Past Surgical Histo: several failed hernia surgeries Smoking: Non-smoker Alcohol Use: None Drug Use: None Adult General Chief Complaint Chief Complaint: syncope HPI HPI 72-year-old female presents via EMS with syncope and fall. The patient has had 4 syncopal episodes today. She has fallen twice. The other 2 times her caught her. She has been having intermittent headaches almost every day recently. Her PCP is currently working this up. She recently had a CT scan to evaluate her sinuses. The patient denies any injuries or pain at this time. She has had at least one episode of diarrhea today. She is feeling very tired and worn out. She denies fever at home. Review of Systems Review of Systems Constitutional: Denies fever or chills [] Eyes: Denies change in visual acuity, redness, or eye pain [] HENT: Denies nasal congestion or sore throat [] Respiratory: Denies cough or shortness of breath [] Cardiovascular: No additional information not addressed in HPI [] GI: Diarrhea. Denies abdominal pain, nausea, vomiting, bloody stools. [] : Denies dysuria or hematuria [] Musculoskeletal: Denies back pain or joint pain [] Integument: Denies rash or skin lesions [] Neurologic: Headache. Denies focal weakness or sensory changes [] Endocrine: Denies polyuria or polydipsia [] All other systems were reviewed and found to be within normal limits, except as documented in this note. Current Medications Current Medications Current Medications Medications (Trade) Dose Ordered Sig/Kristin Start Time Stop Time Status Last Admin Dose Admin Sodium Chloride 1,000 ml @ 1,000 mls/hr 1X ONCE 04/20/18 14:45 04/20/18 15:44 Allergies Allergies Allergies Coded Allergies Type Severity Reaction Last Updated Verified grapefruit Allergy Intermediate 12/19/14 Yes hydromorphone Allergy Intermediate 12/19/14 Yes metoclopramide Allergy Intermediate 09/03/14 Yes morphine Allergy Intermediate 09/03/14 Yes phenytoin Allergy Intermediate 09/03/14 Yes temazepam Allergy Intermediate 12/19/14 Yes trazodone Allergy Intermediate 09/03/14 Yes zolpidem Allergy Intermediate 03/24/17 Yes ropinirole Allergy Unknown 06/22/17 Yes Physical Exam Physical Exam Constitutional: Well developed, well nourished, no acute distress, non-toxic appearance. Appears tired [] HENT: Normocephalic, atraumatic, bilateral external ears normal, oropharynx dry , no oral exudates, nose normal. [] Eyes: PERRLA, EOMI, conjunctiva normal, no discharge. [] Neck: Normal range of motion, no tenderness, supple, no stridor. [] Cardiovascular: Heart rate 103, regular rhythm, no murmur [] Lungs & Thorax: Bilateral breath sounds clear to auscultation [] Abdomen: Bowel sounds normal, soft, no tenderness, no masses, no pulsatile masses. [] Skin: Warm, dry, no erythema, no rash. [] Back: No tenderness, no CVA tenderness. [] Extremities: No tenderness, no cyanosis, no clubbing, ROM intact, no edema. [] Neurologic: Alert and oriented X 3, normal motor function, normal sensory function, no focal deficits noted. [] Psychologic: Affect normal, judgement normal, mood normal. [] EKG EKG Sinus rhythm, rate 96, left axis, no ST elevations or depressions.[] Radiology/Procedures Radiology/Procedures [] Impressions: PQRS Compliance Statement: One or more of the following individualized dose reduction techniques were utilized for this examination: 1. Automated exposure control 2. Adjustment of the mA and/or kV according to patient size 3. Use of iterative reconstruction technique CT HEAD WITHOUT CONTRAST History: DIZZY, N/V Comparison: CT head with and without contrast, 4 days ago. Procedure: Axial images are obtained of the head from the skull base through the vertex without IV contrast. Findings: There is generalized cerebral atrophy. No mass-effect, midline shift, hemorrhage, extra-axial fluid collection, or obvious acute infarction is identified. Basilar cisterns are patent. Bone windows demonstrate no acute calvarial abnormality. The visualized paranasal sinuses are clear. Mastoid air cells are well aerated. IMPRESSION: No acute intracranial abnormality. Electronically signed by: Kirk Madrid MD (04/20/2018 3:14 PM) [id number] DICTATED AND SIGNED BY: KIRK MADRID MD DATE: 04/20/18 [id number] CC: SABRINA DAMON DO; JAYMIE GE MD AP chest, 04/10/2018: HISTORY: Dizziness Comparison is made to a study from 12/18/2017. The heart size and pulmonary vascularity are normal. No pulmonary infiltrate is seen. There is no evidence of pleural fluid. A spinal stimulator lead is again noted in the lower thoracic spinal canal. IMPRESSION: No acute cardiopulmonary abnormality is detected. Electronically signed by: Zana Aviles MD (04/20/2018 3:19 PM) [facility] DICTATED AND SIGNED BY: ZANA AVILES MD DATE: 04/20/18 [id number] CC: SABRINA DAMON DO; JAYMIE GE MD Course & Med Decision Making Course & Med Decision Making Pertinent Labs and Imaging studies reviewed. (See chart for details) Patient was hypotensive on arrival the blood pressure in the 80s over 60s. We have given her 1 L normal saline. The patient's labs are significant for a white count 22 and a left shift. Her chart does show that she typically has an elevated white count. Her head CT is negative for acute findings. Chest x-rays unremarkable. Her creatinine is 1.6. Review of her chart shows that she has had creatinines as high in the past, but mostly she is 1.1. She does appear clinically dehydrated. I have discussed the patient with Dr. Ge and he has accepted the patient for admission. [] Dragon Disclaimer Dragon Disclaimer This electronic medical record was generated, in whole or in part, using a voice recognition dictation system. Departure Departure: Impression: Primary Impression: Dehydration Additional Impression: Elevated serum creatinine Disposition: ADMITTED INPATIENT Admitting Physician: Jaymie Ge Condition: STABLE Referrals: JAYMIE GE MD (PCP) Problem Qualifiers SABRINA DAMON DO Apr 20, 2018 14:52
--- NOTE | 2018-04-20 15:23 | RAD ---
AP chest, 04/10/2018: HISTORY: Dizziness Comparison is made to a study from 12/18/2017. The heart size and pulmonary vascularity are normal. No pulmonary infiltrate is seen. There is no evidence of pleural fluid. A spinal stimulator lead is again noted in the lower thoracic spinal canal. IMPRESSION: No acute cardiopulmonary abnormality is detected. Electronically signed by: Zana Aviles MD (04/20/2018 3:19 PM) [facility]
[2018-04-20 15:27] LABS: BASO # 0.2 x10^3/uL (0.0-0.2); BASO % 1 % (0-3); EOS # 0.5 x10^3/uL (0.0-0.7); EOS % 2 % (0-3); HEMATOCRIT 36.2 % (36.0-47.0); HEMOGLOBIN 11.4 g/dL (12.0-15.5); LYMPH # 2.6 x10^3/uL (1.0-4.8); LYMPH % 12 % (24-48); MEAN CORPUSCULAR HEMOGLOBIN 29 pg (25-35); MEAN CORPUSCULAR HGB CONC 32 g/dL (31-37); MEAN CORPUSCULAR VOLUME 91 fL (79-100); MONO # 1.1 x10^3/uL (0.0-1.1); MONO % 5 % (0-9); NEUT # 17.9 x10^3uL (1.8-7.7); NEUT % 80 % (31-73); PLATELET COUNT 567 x10^3/uL (140-400); RED CELL DISTRIBUTION WIDTH 17.6 % (11.5-14.5); WHITE BLOOD COUNT 22.2 x10^3/uL (4.0-11.0)
--- NOTE | 2018-04-20 15:29 | RAD ---
PQRS Compliance Statement: One or more of the following individualized dose reduction techniques were utilized for this examination: 1. Automated exposure control 2. Adjustment of the mA and/or kV according to patient size 3. Use of iterative reconstruction technique CT HEAD WITHOUT CONTRAST History: DIZZY, N/V Comparison: CT head with and without contrast, 4 days ago. Procedure: Axial images are obtained of the head from the skull base through the vertex without IV contrast. Findings: There is generalized cerebral atrophy. No mass-effect, midline shift, hemorrhage, extra-axial fluid collection, or obvious acute infarction is identified. Basilar cisterns are patent. Bone windows demonstrate no acute calvarial abnormality. The visualized paranasal sinuses are clear. Mastoid air cells are well aerated. IMPRESSION: No acute intracranial abnormality. Electronically signed by: Kirk Madrid MD (04/20/2018 3:14 PM) [id number]
[2018-04-20] MEDS ORDERED: ONDANSETRON PF 4 MG/2 ML VIAL. IV ONE (15:30)
[2018-04-20 15:36] LABS: ALBUMIN 3.7 g/dL (3.4-5.0); ALBUMIN/GLOBULIN RATIO 0.7 (1.0-1.7); CALCIUM 9.5 mg/dL (8.5-10.1); CREATININE 1.6 mg/dL (0.6-1.0); GFR 31.7; POTASSIUM 4.8 mmol/L (3.5-5.1); TOTAL BILIRUBIN 0.2 mg/dL (0.2-1.0); TOTAL PROTEIN 8.8 g/dL (6.4-8.2)
[2018-04-20 16:09] LABS: % BANDS 12 % (0-9); % EOS 1 % (0-5); % LYMPHS 13 % (24-48); % MONOS 2 % (0-10); % SEGS 72 % (35-66)
[2018-04-20 16:10] LABS: PLT ESTIMATE INCREASED (ADEQUATE)
[2018-04-20 16:11] LABS: ANISOCYTOSIS SLIGHT; HYPOCHROMIA SLIGHT; TOXIC GRANULATION SLIGHT
[2018-04-20 19:30] VITALS: BP 113/70
[2018-04-20 20:08] LABS: BILIRUBIN,URINE NEG (NEG); CLARITY,URINE HAZY; COLOR,URINE AMBER; GLUCOSE,URINE NEG (NEG)
[2018-04-20 20:09] LABS: BACTERIA,URINE MANY /HPF (0-FEW); NITRITE,URINE POS (NEG); RBC,URINE OCC /HPF (0-2); SQUAMOUS EPITHELIAL CELL,UR OCC /LPF; UROBILINOGEN,URINE 0.2 mg/dL (0.2 mg/dL); WBC,URINE 20-40 /HPF (0-4)
[2018-04-20] MEDS ORDERED: PIP/TAZO PER PHARMACY MC PRN (20:45)
[2018-04-20] MEDS ORDERED: ALBUTEROL SULFATE 2.5 MG/3 ML NEBU. INH PRN ×2 (20:45→21:29)
[2018-04-20] MEDS ORDERED: FISH OIL PO SCH (21:00)
[2018-04-20] MEDS: IPRATRPIUM/ALBUTEROL 0.5/2.5MG 3 ML NEBU. NEB SCH (21:00)
[2018-04-20] MEDS ORDERED: NON FORMULARY ITEM (Ciprofloxacin Hcl 1 TAB) PO SCH (21:00)
[2018-04-20] MEDS ORDERED: FATTY ACIDS PO SCH (21:00)
[2018-04-20] MEDS ORDERED: NON FORMULARY ITEM (Metronidazole (Flagyl) 1 TAB) PO SCH (21:00)
[2018-04-20] MEDS ORDERED: VANCOMYCIN 1.5 GM in IV NORMAL SALINE 500ML 500 ML IV ONE (21:00)
[2018-04-20] MEDS ORDERED: OMEGA PO SCH (21:00)
[2018-04-20] MEDS ORDERED: ERYTHROMYCIN BASE 250 MG TABLET PO SCH (21:00)
[2018-04-20] MEDS ORDERED: LOPERAMIDE 2 MG CAPSULE PO PRN (22:00)
[2018-04-20] MEDS: clonazePAM 0.5 MG TABLET PO SCH (22:44)
[2018-04-20] MEDS: ATORVASTATIN CALCIUM 10 MG TABLET. PO SCH (22:45)
[2018-04-20] MEDS: MIRTAZAPINE 15 MG TABLET PO SCH (22:45)
[2018-04-20] MEDS: carBAMazepine 200 MG TABLET PO SCH (22:45)
[2018-04-20 22:48] VITALS: BP 103/63
[2018-04-20] MEDS: METOPROLOL TART IMMED RELEASE 25 MG TABLET PO SCH (23:03)
[2018-04-20] MEDS: ZONISAMIDE 100 MG CAPSULE. PO SCH (23:04)
[2018-04-20] MEDS: NORTRIPTYLINE 25 MG CAPSULE PO SCH (23:04)
[2018-04-20] MEDS: rOPINIRole 1 MG TABLET. PO SCH (23:04)
[2018-04-20] MEDS: DICLOFENAC SODIUM 1% TOPICAL GEL 100GM TUBE. TP SCH (23:04)
[2018-04-20] MEDS: INSULIN GLARGINE 300 UNITS/3 ML INSULN.PEN. SQ SCH (23:06)
--- NOTE | 2018-04-21 00:09 | EKG ---
[address] [address] Test Date: 2018-04-20 Test Time: 14:47:08 Pat Name: PAMELA CAIN Department: Room: Gender: F Camp Boss: NINA : 1945 Requested By: SABRINA DAMON Order Number: [id number] Reading MD: Measurements Intervals [place] Rate: 96 P: 28 SD: 178 QRS: -36 QRSD: 84 T: 90 QT: 376 QTc: 476 Interpretive Statements SINUS RHYTHM ABNORMAL LEFT AXIS DEVIATION QRS(T) CONTOUR ABNORMALITY CONSISTENT WITH ANTERIOR INFARCT AGE UNDETERMINED CONSISTENT WITH INFERIOR INFARCT PROBABLY OLD ST & T ABNORMALITY, CONSIDER HIGH LATERAL ISCHEMIA OR LEFT VENTRICULAR STRAIN ABNORMAL ECG RI6.01 Unconfirmed report No previous ECG available for comparison
[2018-04-21] MEDS: PIPERACILLIN/TAZOBACTAM 3.375 GM in IV NORMAL SALINE 50ML 50 ML IV SCH ×4 (01:18→17:38)
[2018-04-21] MEDS: IV NORMAL SALINE 1,000ML 1,000 ML IV SCH ×4 (03:35→22:29)
[2018-04-21] MEDS: IPRATRPIUM/ALBUTEROL 0.5/2.5MG 3 ML NEBU. NEB SCH ×3 (05:06→20:12)
[2018-04-21 05:40] VITALS: BP 106/63
[2018-04-21] MEDS: HYDROcodone/APAP 5/325MG 1 TAB TABLET PO PRN (06:15)
[2018-04-21 06:16] LABS: BASO # 0.1 x10^3/uL (0.0-0.2); BASO % 1 % (0-3); EOS % 5 % (0-3); HEMATOCRIT 29.4 % (36.0-47.0); HEMOGLOBIN 9.3 g/dL (12.0-15.5); LYMPH # 8.6 x10^3/uL (1.0-4.8); LYMPH % 44 % (24-48); MEAN CORPUSCULAR HEMOGLOBIN 28 pg (25-35); MEAN CORPUSCULAR HGB CONC 32 g/dL (31-37); MEAN CORPUSCULAR VOLUME 90 fL (79-100); MONO # 1.4 x10^3/uL (0.0-1.1); MONO % 7 % (0-9); NEUT # 8.5 x10^3uL (1.8-7.7); NEUT % 44 % (31-73); PLATELET COUNT 476 x10^3/uL (140-400); RED BLOOD COUNT 3.28 x10^6/uL (3.50-5.40); RED CELL DISTRIBUTION WIDTH 17.5 % (11.5-14.5); WHITE BLOOD COUNT 19.5 x10^3/uL (4.0-11.0)
[2018-04-21] MEDS ORDERED: metFORMIN 500 MG TABLET PO SCH (08:00)
[2018-04-21] MEDS: SODIUM BICARBONATE 650 MG TABLET PO SCH (08:44)
[2018-04-21] MEDS: INSULIN LISPRO 300 UNITS/3 ML INSULN.PEN. SQ SCH ×3 (08:45→17:10)
[2018-04-21] MEDS: ASPIRIN ENTERIC COATED 81 MG TABLET.DR. PO SCH (08:46)
[2018-04-21] MEDS: clonazePAM 0.5 MG TABLET PO SCH ×3 (08:46→21:15)
[2018-04-21] MEDS: LISINOPRIL 5 MG TABLET. PO SCH (08:47)
[2018-04-21] MEDS: buPROPion SR 150 MG TABLET.SA PO SCH (08:47)
[2018-04-21] MEDS: PANTOPRAZOLE 40 MG TABLET. PO SCH (08:47)
[2018-04-21] MEDS: CETIRIZINE HCL 10 MG TABLET PO SCH (08:48)
[2018-04-21] MEDS: busPIRone 10 MG TABLET. PO SCH (08:48)
[2018-04-21] MEDS: MULTIVITAMIN with MINERAL TABLET. PO SCH (08:49)
[2018-04-21] MEDS: DULoxetine HCL 60 MG CAPSULE.DR PO SCH (08:49)
[2018-04-21] MEDS: CLOPIDOGREL BISULFATE 75 MG TABLET PO SCH (08:50)
[2018-04-21] MEDS: ZONISAMIDE 100 MG CAPSULE. PO SCH ×3 (08:50→21:16)
[2018-04-21] MEDS: FLUTICASONE 50MCG/NASAL SPRAY 16GM BOTTLE. NS SCH (08:50)
[2018-04-21] MEDS: LACTOBACILLUS RHAMNOSUS GG 1 CAPSULE. PO SCH ×2 (08:50→21:15)
[2018-04-21] MEDS: FAMOTIDINE 20 MG TABLET PO SCH (08:50)
[2018-04-21] MEDS: DICLOFENAC SODIUM 1% TOPICAL GEL 100GM TUBE. TP SCH ×4 (08:51→21:00)
[2018-04-21] MEDS: INSULIN GLARGINE 300 UNITS/3 ML INSULN.PEN. SQ SCH ×2 (08:52→21:24)
[2018-04-21 10:40] VITALS: BP 119/67
[2018-04-21] MEDS ORDERED: IOHEXOL 240 MG/ML 50ML VIAL. ONE (11:09)
[2018-04-21] MEDS: METOPROLOL TART IMMED RELEASE 25 MG TABLET PO SCH ×2 (11:19→21:16)
[2018-04-21] MEDS: amLODIPine BESYLATE 5 MG TABLET PO SCH (11:19)
[2018-04-21] MEDS: ASA/APAP/CAFFEINE 250/250/65MG TABLET. PO PRN (11:20)
--- NOTE | 2018-04-21 12:23 | PN ---
DATE: 04/21/2018 SUBJECTIVE: A 72-year-old female admitted yesterday. The patient apparently may have a sepsis. She has an elevated white count over 24,000. She had multiple syncopal episodes. She is complaining of migraine headache. Her white count has come down from over 20 down to 19,000. She is on double antibiotics. OBJECTIVE: VITAL SIGNS: Show elevated pulse rates. Her initial blood pressure was 84/52, respiratory rate 20, pulse in the 90s, blood pressures come up with fluids and holding back some of her blood pressure medications. Last blood pressure 106/60, respiratory rate 20, pulse 87, afebrile. GENERAL: The patient is alert and oriented, complaining of facial pain. We will get sinus x-rays. NECK: Supple. LUNGS: Diminished, but clear. CARDIOVASCULAR: Stable. ABDOMEN: Soft, but definite tenderness in the left upper quadrant area. Some guarding, but no rebounding, positive bowel sounds. No hepatosplenomegaly. Frankly bursitis edema. NEUROLOGIC: Baseline for her. LABORATORY DATA: White count is noted 9.5 yesterday. She did have 12 bands. Hemoglobin has dropped to 9.3. Blood sugars are being monitored. Urine did show 20-40 white blood cells. D-dimer elevated, will do a V/Q scan. IMPRESSION: Sepsis, leukocytosis, urinary tract infection, abdominal pain, type 2 diabetes. PLAN: Continue with protocol for now and make sure for results on these other situations. JAYMIE GE MD DR: MAURIZIO/luis angel JOB#: [id number] / [id number]
[2018-04-21] MEDS: VANCOMYCIN PER PHARMACY MC PRN (12:47)
[2018-04-21 15:11] VITALS: BP 109/66
--- NOTE | 2018-04-21 15:12 | RAD ---
CT scan dated 04/21/2018. Comparison made to chest x-ray dated 04/20/2018. Clinical data indication: Elevated d-dimer. FINDINGS: Ventilation/perfusion imaging performed after the administration of 5.5 mCi of technetium 99 MAA and 16.4 mCi of xenon-133. Single breath and equilibrium phase ventilation images show symmetric distribution of tracer throughout both lungs. No significant retention of xenon on the washout images. Perfusion imaging show symmetric distribution of tracer. No pleural-based defect or mismatch defect. IMPRESSION: Low probability for pulmonary embolus. Electronically signed by: Cyrus Barrientos MD (04/21/2018 3:08 PM) [facility] – [place]
--- NOTE | 2018-04-21 15:14 | RAD ---
EXAM: CT Abdomen and Pelvis without IV contrast CLINICAL HISTORY: LUQ PAIN AND ELEVATED WBC. COMPARISON: 12/18/2017 TECHNIQUE: Helical CT of the abdomen and pelvis without intravenous contrast. Oral contrast was administered. Axial, coronal and sagittal reformatted images were generated. PQRS compliance statement - One or more of the following individualized dose reduction techniques were utilized for this study: 1. Automated exposure control 2. Adjustment of the mA and/or kV according to patient size 3. Use of iterative reconstruction technique FINDINGS: Lack of intravenous contrast limits evaluation of solid organs, vasculature, and lymph nodes. Lower chest: Coronary artery calcifications are seen. Patchy opacities in the lower lobes bilaterally likely atelectasis limited in evaluation by respiratory motion artifact. Abdomen and Pelvis: No focal liver lesion. Accounting for postcholecystectomy change, no biliary ductal dilatation. 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 Adrenal glands are normal. Pancreas is unremarkable. Moderate colonic stool content is seen. Colonic diverticula are seen. No evidence for acute diverticulitis. There are 2 ventral abdominal hernias containing portions of small and large bowel however no associated fat infiltration or free fluid is seen. Portion of metal mesh hernia repair is seen. Appendix is not seen. No abdominal or pelvic ascites. No lymphadenopathy. Atherosclerotic calcifications of aorta are seen. Bones: Spinal stimulator leads are seen. Multilevel degenerative changes are seen.. Lytic lesion within the L2 vertebral body with coarse trabeculation, likely hemangioma. IMPRESSION: 1. 2 ventral abdominal hernias containing portions of small and large bowel are again seen. No evidence for bowel obstruction. 2. 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 3. Colonic diverticulosis without evidence of acute diverticulitis. Electronically signed by: Romario Tyler MD (04/21/2018 3:10 PM) [facility]
--- NOTE | 2018-04-21 15:16 | RAD ---
3 views of sinuses dated 04/21/2018. No comparison available. CLINICAL INDICATION: Sinus pain facial pain and pressure. FINDINGS: 4 views of the facial bones obtained. Suspected partial opacification of the right maxillary sinus without air-fluid level. Ethmoid and sphenoid sinuses are grossly clear. No bony destructive process. IMPRESSION: Suspected mild mucosal thickening of the right maxillary sinus. No air-fluid levels are identified. Electronically signed by: Cyrus Barrientos MD (04/21/2018 3:12 PM) [facility] [place]
[2018-04-21 19:44] VITALS: BP 101/61
[2018-04-21] MEDS ORDERED: TEMAZEPAM 15 MG CAPSULE PO SCH (21:00)
[2018-04-21] MEDS: ATORVASTATIN CALCIUM 10 MG TABLET. PO SCH (21:15)
[2018-04-21] MEDS: carBAMazepine 200 MG TABLET PO SCH (21:15)
[2018-04-21] MEDS: NORTRIPTYLINE 25 MG CAPSULE PO SCH (21:16)
[2018-04-21] MEDS: rOPINIRole 1 MG TABLET. PO SCH (21:16)
[2018-04-21] MEDS: TEMAZEPAM 15 MG CAPSULE PO SCH (21:16)
[2018-04-21] MEDS: MIRTAZAPINE 15 MG TABLET PO SCH (21:16)
[2018-04-21] MEDS: VANCOMYCIN 1 GM in IV NORMAL SALINE 250ML 250 ML IV SCH (22:29)
[2018-04-21 22:57] VITALS: BP 113/72
[2018-04-22] MEDS: PIPERACILLIN/TAZOBACTAM 3.375 GM in IV NORMAL SALINE 50ML 50 ML IV SCH ×4 (02:32→17:15)
[2018-04-22] MEDS: IPRATRPIUM/ALBUTEROL 0.5/2.5MG 3 ML NEBU. NEB SCH ×3 (05:05→20:13)
[2018-04-22 05:47] VITALS: BP 102/62
[2018-04-22] MEDS: IV NORMAL SALINE 1,000ML 1,000 ML IV SCH ×3 (06:05→21:28)
[2018-04-22 07:20] LABS: BASO # 0.2 x10^3/uL (0.0-0.2); BASO % 1 % (0-3); EOS % 7 % (0-3); HEMOGLOBIN 8.7 g/dL (12.0-15.5); LYMPH # 3.7 x10^3/uL (1.0-4.8); LYMPH % 28 % (24-48); MEAN CORPUSCULAR HEMOGLOBIN 28 pg (25-35); MEAN CORPUSCULAR HGB CONC 31 g/dL (31-37); MEAN CORPUSCULAR VOLUME 91 fL (79-100); MONO # 1.2 x10^3/uL (0.0-1.1); MONO % 9 % (0-9); NEUT # 7.2 x10^3uL (1.8-7.7); NEUT % 55 % (31-73); PLATELET COUNT 435 x10^3/uL (140-400); RED BLOOD COUNT 3.07 x10^6/uL (3.50-5.40); RED CELL DISTRIBUTION WIDTH 17.5 % (11.5-14.5); WHITE BLOOD COUNT 13.3 x10^3/uL (4.0-11.0)
[2018-04-22 07:25] LABS: CALCIUM 7.6 mg/dL (8.5-10.1); CREATININE 1.1 mg/dL (0.6-1.0); GFR 48.8; POTASSIUM 4.2 mmol/L (3.5-5.1)
[2018-04-22] MEDS: FAMOTIDINE 20 MG TABLET PO SCH (08:03)
[2018-04-22] MEDS: PANTOPRAZOLE 40 MG TABLET. PO SCH (08:03)
[2018-04-22] MEDS: CLOPIDOGREL BISULFATE 75 MG TABLET PO SCH (08:03)
[2018-04-22] MEDS: MULTIVITAMIN with MINERAL TABLET. PO SCH (08:03)
[2018-04-22] MEDS: buPROPion SR 150 MG TABLET.SA PO SCH (08:03)
[2018-04-22] MEDS: ASPIRIN ENTERIC COATED 81 MG TABLET.DR. PO SCH (08:03)
[2018-04-22] MEDS: CETIRIZINE HCL 10 MG TABLET PO SCH (08:04)
[2018-04-22] MEDS: LACTOBACILLUS RHAMNOSUS GG 1 CAPSULE. PO SCH ×2 (08:04→21:25)
[2018-04-22] MEDS: DULoxetine HCL 60 MG CAPSULE.DR PO SCH (08:04)
[2018-04-22] MEDS: clonazePAM 0.5 MG TABLET PO SCH ×3 (08:04→21:27)
[2018-04-22] MEDS: busPIRone 10 MG TABLET. PO SCH (08:04)
[2018-04-22] MEDS: ZONISAMIDE 100 MG CAPSULE. PO SCH ×3 (08:05→21:29)
[2018-04-22] MEDS: FLUTICASONE 50MCG/NASAL SPRAY 16GM BOTTLE. NS SCH (08:05)
[2018-04-22] MEDS: SODIUM BICARBONATE 650 MG TABLET PO SCH (08:05)
[2018-04-22] MEDS: INSULIN LISPRO 300 UNITS/3 ML INSULN.PEN. SQ SCH ×3 (08:06→17:13)
[2018-04-22] MEDS: DICLOFENAC SODIUM 1% TOPICAL GEL 100GM TUBE. TP SCH ×4 (08:08→21:00)
[2018-04-22] MEDS: INSULIN GLARGINE 300 UNITS/3 ML INSULN.PEN. SQ SCH ×2 (08:08→21:41)
[2018-04-22] MEDS: HYDROcodone/APAP 5/325MG 1 TAB TABLET PO PRN (09:24)
[2018-04-22] MEDS ORDERED: LOPERAMIDE 2 MG CAPSULE PO PRN (12:00)
[2018-04-22] MEDS: amLODIPine BESYLATE 5 MG TABLET PO SCH (12:04)
[2018-04-22] MEDS: METOPROLOL TART IMMED RELEASE 25 MG TABLET PO SCH ×2 (12:04→21:26)
[2018-04-22] MEDS: LISINOPRIL 5 MG TABLET. PO SCH (12:05)
[2018-04-22 12:40] VITALS: BP 127/75
--- NOTE | 2018-04-22 16:11 | PN ---
DATE: SUBJECTIVE: The patient admitted with apparent sepsis, had a white count of over 24,000, gradually it has come down with IV antibiotic. She has developed some diarrhea. The source of her infection is somewhat still pending and we are still looking for sources of that. The patient has been worked up at [facility] for a very similar situation and they were able to rescue the problem as well. The patient's diarrhea is infrequent, but may be related to her IV antibiotic. The patient had a CT scan that did show a lytic lesion within L2 bilaterally with coarse trabeculation likely hemangioma. She has a spinal stimulator, other than that basically stable there. OBJECTIVE: VITAL SIGNS: Blood pressure 130/80, respiratory rate 20, pulse 60, afebrile. NEUROLOGIC: The patient is alert and oriented x 3. Speech fluent, spontaneous, appropriate. Cranial nerves 2-12 are grossly intact. LUNGS: Diminished. ABDOMEN: Soft, diffuse tenderness in the left upper quadrant area, but no rebounding, no guarding. Positive bowel sounds. No hepatosplenomegaly was noted. The patient otherwise continued to be monitored. IMPRESSION: Sepsis, leukocytosis, urinary tract infection, abdominal pain, no diarrhea, type 2 diabetes, obesity. PLAN: Continue to monitor the patient accordingly. Make further evaluation. The patient also has some partial opacification of right maxillary sinus consistent with sinusitis, which may be a source of some of these white counts. Continue to monitor on that. JAYMIE GE MD DR: MAURIZIO/luis angel JOB#: [id number] / [id number]
[2018-04-22 17:44] VITALS: BP 122/65
[2018-04-22 19:57] VITALS: BP 108/61
[2018-04-22] MEDS: MIRTAZAPINE 15 MG TABLET PO SCH (21:25)
[2018-04-22] MEDS: ASA/APAP/CAFFEINE 250/250/65MG TABLET. PO PRN (21:25)
[2018-04-22] MEDS: carBAMazepine 200 MG TABLET PO SCH (21:25)
[2018-04-22] MEDS: rOPINIRole 1 MG TABLET. PO SCH (21:27)
[2018-04-22] MEDS: ATORVASTATIN CALCIUM 10 MG TABLET. PO SCH (21:27)
[2018-04-22] MEDS: TEMAZEPAM 15 MG CAPSULE PO SCH (21:27)
[2018-04-22] MEDS: NORTRIPTYLINE 25 MG CAPSULE PO SCH (21:29)
[2018-04-22] MEDS: VANCOMYCIN 1 GM in IV NORMAL SALINE 250ML 250 ML IV SCH (21:32)
[2018-04-22 21:34] LABS: FECAL OB PT NEGATIVE (NEG)
[2018-04-22 21:40] LABS: VANC TR 10.3 mcg/mL (10.0-20.0)
[2018-04-22] MEDS: BENZOCAINE/MENTHOL LOZNGE 18'S BOX. PO PRN (22:34)
[2018-04-22 22:51] VITALS: BP 131/74
[2018-04-23] MEDS: PIPERACILLIN/TAZOBACTAM 3.375 GM in IV NORMAL SALINE 50ML 50 ML IV SCH ×4 (00:39→17:26)
[2018-04-23] MEDS: IV NORMAL SALINE 1,000ML 1,000 ML IV SCH ×2 (02:15→08:35)
[2018-04-23 05:22] VITALS: BP 128/78
[2018-04-23] MEDS: IPRATRPIUM/ALBUTEROL 0.5/2.5MG 3 ML NEBU. NEB SCH ×3 (05:23→20:22)
[2018-04-23 07:05] LABS: BASO # 0.2 x10^3/uL (0.0-0.2); BASO % 1 % (0-3); EOS # 1.1 x10^3/uL (0.0-0.7); EOS % 6 % (0-3); HEMATOCRIT 27.4 % (36.0-47.0); HEMOGLOBIN 8.6 g/dL (12.0-15.5); LYMPH # 4.4 x10^3/uL (1.0-4.8); LYMPH % 24 % (24-48); MEAN CORPUSCULAR HEMOGLOBIN 28 pg (25-35); MEAN CORPUSCULAR HGB CONC 31 g/dL (31-37); MEAN CORPUSCULAR VOLUME 91 fL (79-100); MONO # 1.5 x10^3/uL (0.0-1.1); MONO % 8 % (0-9); NEUT % 60 % (31-73); PLATELET COUNT 416 x10^3/uL (140-400); RED BLOOD COUNT 3.02 x10^6/uL (3.50-5.40); RED CELL DISTRIBUTION WIDTH 17.5 % (11.5-14.5); WHITE BLOOD COUNT 18.2 x10^3/uL (4.0-11.0)
[2018-04-23 07:19] LABS: CALCIUM 8.1 mg/dL (8.5-10.1); CREATININE 0.9 mg/dL (0.6-1.0); GFR 61.5; POTASSIUM 4.2 mmol/L (3.5-5.1)
[2018-04-23] MEDS: INSULIN LISPRO 300 UNITS/3 ML INSULN.PEN. SQ SCH ×3 (07:30→16:30)
[2018-04-23 08:11] LABS: % BANDS 1 % (0-9); % EOS 6 % (0-5); % LYMPHS 26 % (24-48); % MONOS 5 % (0-10); % SEGS 62 % (35-66)
[2018-04-23 08:12] LABS: HYPOCHROMIA SLIGHT; PLT ESTIMATE ADEQUATE (ADEQUATE)
[2018-04-23 08:13] LABS: ANISOCYTOSIS SLIGHT
[2018-04-23] MEDS: FAMOTIDINE 20 MG TABLET PO SCH (08:31)
[2018-04-23] MEDS: LACTOBACILLUS RHAMNOSUS GG 1 CAPSULE. PO SCH ×2 (08:31→23:13)
[2018-04-23] MEDS: buPROPion SR 150 MG TABLET.SA PO SCH (08:31)
[2018-04-23] MEDS: LISINOPRIL 5 MG TABLET. PO SCH (08:32)
[2018-04-23] MEDS: MULTIVITAMIN with MINERAL TABLET. PO SCH (08:32)
[2018-04-23] MEDS: CLOPIDOGREL BISULFATE 75 MG TABLET PO SCH (08:32)
[2018-04-23] MEDS: PANTOPRAZOLE 40 MG TABLET. PO SCH (08:33)
[2018-04-23] MEDS: METOPROLOL TART IMMED RELEASE 25 MG TABLET PO SCH ×2 (08:33→23:11)
[2018-04-23] MEDS: ASPIRIN ENTERIC COATED 81 MG TABLET.DR. PO SCH (08:33)
[2018-04-23] MEDS: FLUTICASONE 50MCG/NASAL SPRAY 16GM BOTTLE. NS SCH (08:34)
[2018-04-23] MEDS: busPIRone 10 MG TABLET. PO SCH (08:34)
[2018-04-23] MEDS: CETIRIZINE HCL 10 MG TABLET PO SCH (08:34)
[2018-04-23] MEDS: amLODIPine BESYLATE 5 MG TABLET PO SCH (08:34)
[2018-04-23] MEDS: clonazePAM 0.5 MG TABLET PO SCH (08:34)
[2018-04-23] MEDS: DULoxetine HCL 60 MG CAPSULE.DR PO SCH (08:34)
[2018-04-23] MEDS: SODIUM BICARBONATE 650 MG TABLET PO SCH (08:35)
[2018-04-23] MEDS: ZONISAMIDE 100 MG CAPSULE. PO SCH ×3 (08:36→23:08)
[2018-04-23] MEDS: DICLOFENAC SODIUM 1% TOPICAL GEL 100GM TUBE. TP SCH ×4 (08:36→23:00)
[2018-04-23] MEDS: INSULIN GLARGINE 300 UNITS/3 ML INSULN.PEN. SQ SCH ×2 (08:45→23:07)
[2018-04-23] MEDS: VANCOMYCIN PER PHARMACY MC PRN (09:09)
[2018-04-23] MEDS ORDERED: BUTALB/APAP/CAFEIN 50/325/40MG TABLET. PO PRN (09:45)
[2018-04-23] MEDS: VANCOMYCIN 1 GM in IV NORMAL SALINE 250ML 250 ML IV SCH ×2 (09:54→22:59)
--- NOTE | 2018-04-23 10:23 | PN ---
DATE: SUBJECTIVE: The patient in the course with multiple medical problems. She has been having more difficulty breathing here of late and as a result of this will get some Lasix and get a chest x-ray, breathing treatments have been ordered. Her white count is back up to 18,000, but according to notes from [facility] that may be well within her range of white count, they attributed to the fact that the patient had a splenectomy. She had 5 stools already today. Her weight has been increasing, so we will decrease her IV fluids as well as give her some IV Lasix. OBJECTIVE: VITAL SIGNS: Otherwise, vital signs include blood pressure 130/70, pulse is 80, respiratory rate is 24, and afebrile. GENERAL: The patient is alert and oriented, having a little bit of trouble breathing. LUNGS: Do show some expiratory wheezes and rhonchi. CARDIOVASCULAR: Tachycardic. ABDOMEN: Soft, nontender, no rebounding or guarding. Positive bowel sounds. IMPRESSION: Therefore of sepsis, acute respiratory distress, and chronic leukocytosis, post-splenectomy. PLAN: We will continue to monitor the patient accordingly and make further assessment as indicated. C. diff is still pending. JAYMIE GE MD DR: MAURIZIO/luis angel JOB#: [id number] / [id number]
[2018-04-23] MEDS ORDERED: FUROSEMIDE 20 MG/2 ML VIAL IVP ONE (10:30)
[2018-04-23] MEDS: BENZOCAINE/MENTHOL LOZNGE 18'S BOX. PO PRN (10:38)
[2018-04-23] MEDS: BUDESONIDE 3 MG CAP.ER.24H. PO SCH (10:38)
[2018-04-23] MEDS: ASA/APAP/CAFFEINE 250/250/65MG TABLET. PO PRN ×2 (10:39→18:01)
[2018-04-23 11:18] VITALS: BP 127/71
[2018-04-23] MEDS: clonazePAM 1 MG TABLET PO SCH ×2 (14:22→23:12)
[2018-04-23 15:12] VITALS: BP 112/69
[2018-04-23] MEDS: metFORMIN 500 MG TABLET PO SCH (17:00)
[2018-04-23 19:48] VITALS: BP 159/83
[2018-04-23 23:00] VITALS: BP 160/88
[2018-04-23] MEDS: MIRTAZAPINE 15 MG TABLET PO SCH (23:09)
[2018-04-23] MEDS: TEMAZEPAM 15 MG CAPSULE PO SCH (23:09)
[2018-04-23] MEDS: rOPINIRole 1 MG TABLET. PO SCH (23:11)
[2018-04-23] MEDS: carBAMazepine 200 MG TABLET PO SCH (23:11)
[2018-04-23] MEDS: ATORVASTATIN CALCIUM 10 MG TABLET. PO SCH (23:12)
[2018-04-23] MEDS: NORTRIPTYLINE 25 MG CAPSULE PO SCH (23:13)
[2018-04-24] MEDS: PIPERACILLIN/TAZOBACTAM 3.375 GM in IV NORMAL SALINE 50ML 50 ML IV SCH ×2 (00:23→06:42)
[2018-04-24] MEDS: ASA/APAP/CAFFEINE 250/250/65MG TABLET. PO PRN ×3 (00:52→19:42)
[2018-04-24] MEDS: IPRATRPIUM/ALBUTEROL 0.5/2.5MG 3 ML NEBU. NEB SCH ×3 (05:37→19:33)
[2018-04-24 05:55] VITALS: BP 101/62
[2018-04-24 06:59] LABS: BASO # 0.2 x10^3/uL (0.0-0.2); BASO % 1 % (0-3); EOS # 1.1 x10^3/uL (0.0-0.7); EOS % 6 % (0-3); HEMATOCRIT 25.4 % (36.0-47.0); LYMPH % 24 % (24-48); MEAN CORPUSCULAR HEMOGLOBIN 28 pg (25-35); MEAN CORPUSCULAR HGB CONC 31 g/dL (31-37); MEAN CORPUSCULAR VOLUME 90 fL (79-100); MONO # 1.5 x10^3/uL (0.0-1.1); MONO % 9 % (0-9); NEUT # 10.1 x10^3uL (1.8-7.7); NEUT % 60 % (31-73); PLATELET COUNT 375 x10^3/uL (140-400); RED BLOOD COUNT 2.81 x10^6/uL (3.50-5.40); RED CELL DISTRIBUTION WIDTH 17.6 % (11.5-14.5); WHITE BLOOD COUNT 16.8 x10^3/uL (4.0-11.0)
[2018-04-24 07:22] LABS: CALCIUM 8.1 mg/dL (8.5-10.1); GFR 54.5; POTASSIUM 3.3 mmol/L (3.5-5.1)
[2018-04-24] MEDS: INSULIN LISPRO 300 UNITS/3 ML INSULN.PEN. SQ SCH ×3 (07:30→17:52)
[2018-04-24] MEDS: metFORMIN 500 MG TABLET PO SCH ×2 (08:00→17:46)
[2018-04-24] MEDS: clonazePAM 1 MG TABLET PO SCH ×3 (08:11→22:25)
[2018-04-24] MEDS: CLOPIDOGREL BISULFATE 75 MG TABLET PO SCH (08:13)
[2018-04-24] MEDS: MULTIVITAMIN with MINERAL TABLET. PO SCH (08:13)
[2018-04-24] MEDS: ASPIRIN ENTERIC COATED 81 MG TABLET.DR. PO SCH (08:13)
[2018-04-24] MEDS: CETIRIZINE HCL 10 MG TABLET PO SCH (08:14)
[2018-04-24] MEDS: busPIRone 10 MG TABLET. PO SCH (08:14)
[2018-04-24] MEDS: FAMOTIDINE 20 MG TABLET PO SCH (08:14)
[2018-04-24] MEDS: DULoxetine HCL 60 MG CAPSULE.DR PO SCH (08:14)
[2018-04-24] MEDS: PANTOPRAZOLE 40 MG TABLET. PO SCH (08:15)
[2018-04-24] MEDS: LACTOBACILLUS RHAMNOSUS GG 1 CAPSULE. PO SCH ×2 (08:15→22:21)
[2018-04-24] MEDS: buPROPion SR 150 MG TABLET.SA PO SCH (08:15)
[2018-04-24] MEDS: BENZOCAINE/MENTHOL LOZNGE 18'S BOX. PO PRN (08:16)
[2018-04-24] MEDS: DICLOFENAC SODIUM 1% TOPICAL GEL 100GM TUBE. TP SCH ×4 (08:16→22:21)
[2018-04-24] MEDS: FLUTICASONE 50MCG/NASAL SPRAY 16GM BOTTLE. NS SCH (08:17)
[2018-04-24] MEDS: SODIUM BICARBONATE 650 MG TABLET PO SCH (08:18)
[2018-04-24] MEDS: BUDESONIDE 3 MG CAP.ER.24H. PO SCH (08:19)
[2018-04-24] MEDS: ZONISAMIDE 100 MG CAPSULE. PO SCH ×4 (08:19→22:21)
[2018-04-24] MEDS: amLODIPine BESYLATE 5 MG TABLET PO SCH (08:23)
[2018-04-24] MEDS: METOPROLOL TART IMMED RELEASE 25 MG TABLET PO SCH ×2 (08:23→22:22)
[2018-04-24] MEDS: LISINOPRIL 5 MG TABLET. PO SCH (08:24)
[2018-04-24] MEDS: INSULIN GLARGINE 300 UNITS/3 ML INSULN.PEN. SQ SCH ×2 (08:24→23:07)
--- NOTE | 2018-04-24 08:40 | RAD ---
Chest radiograph 04/23/2018 1:18 PM INDICATION: Shortness of air COMPARISON: 04/20/2018 TECHNIQUE: Portable upright frontal view of the chest is provided. FINDINGS: The cardiomediastinal silhouette is borderline enlarged, stable. There are no pleural effusions. Mild pulmonary vascular congestion. There is no pneumothorax. The lungs are clear. No significant osseous abnormality is identified. IMPRESSION: Mild pulmonary vascular congestion as may be seen with congestive heart failure or alternate fluid overload states. Perihilar interstitial changes may be seen with atypical pneumonitis. Electronically signed by: Ceci Quintana MD (04/24/2018 8:35 AM) [facility]
[2018-04-24] MEDS ORDERED: ELECTROLYTE (NON-ICU) PROTOCOL MC PRN (09:00)
[2018-04-24] MEDS ORDERED: FUROSEMIDE 40 MG/4 ML VIAL IVP ONE (09:45)
[2018-04-24] MEDS ORDERED: POTASSIUM CHLORIDE 20 MEQ TABLET.ER. PO ONE (10:00)
[2018-04-24] MEDS ORDERED: AZITHROMYCIN 250 MG TABLET. PO SCH (10:00)
[2018-04-24] MEDS: FERROUS SULFATE 325 MG TABLET. PO SCH ×2 (10:24→22:25)
[2018-04-24] MEDS: VANCOMYCIN PER PHARMACY MC PRN (10:39)
[2018-04-24 11:16] VITALS: BP 114/70
[2018-04-24 16:02] VITALS: BP_SYST 115; BP_SYST 148; BP_DIAS 71; BP_DIAS 81
[2018-04-24 20:59] VITALS: BP 133/77
--- NOTE | 2018-04-24 21:53 | PN ---
DATE: SUBJECTIVE: A 72-year-old female in the course with multiple medical problems. The patient had met some septic criteria and her white count has been vacillating, although chest x-ray demonstrates of the possibility of an atypical type of pneumonia and so that is being performed and waiting for results on that. Otherwise, she will be changed on her antibiotics. She is feeling fairly well. We will continue to be monitored accordingly on that. PHYSICAL EXAMINATION: VITAL SIGNS: Blood pressure 148/81, respiration 16, pulse 100, afebrile. GENERAL: The patient is alert and oriented. LUNGS: Diminished throughout, poor movement of air. CARDIOVASCULAR: Regular sinus rhythm. ABDOMEN: Soft, nontender. LABORATORY DATA: White count around 16,000, hemoglobin continues to drop to about 8 and 25. We will continue to monitor her, continue on IV antibiotic therapy since she does meet the criteria of sepsis and continue to administer IV antibiotic therapy, sepsis, acute respiratory distress with hypoxia, chronic leukocytosis, post splenectomy, and type 2 diabetes. PLAN: As above to continue to monitor her and make further evaluation with PT, OT as well. JAYMIE GE MD DR: MAURIZIO/luis angel JOB#: [id number] / [id number]
[2018-04-24] MEDS: TEMAZEPAM 15 MG CAPSULE PO SCH (22:21)
[2018-04-24] MEDS: NORTRIPTYLINE 25 MG CAPSULE PO SCH (22:21)
[2018-04-24] MEDS: rOPINIRole 1 MG TABLET. PO SCH (22:25)
[2018-04-24] MEDS: carBAMazepine 200 MG TABLET PO SCH (22:25)
[2018-04-24] MEDS: ATORVASTATIN CALCIUM 10 MG TABLET. PO SCH (22:25)
[2018-04-24] MEDS: MIRTAZAPINE 15 MG TABLET PO SCH (22:25)
[2018-04-24 23:30] VITALS: BP 124/68
[2018-04-25] MEDS: BENZOCAINE/MENTHOL LOZNGE 18'S BOX. PO PRN ×3 (01:05→22:00)
[2018-04-25] MEDS ORDERED: VANCOMYCIN 1 GM in IV NORMAL SALINE 250ML 250 ML IV SCH (05:00)
[2018-04-25] MEDS: IPRATRPIUM/ALBUTEROL 0.5/2.5MG 3 ML NEBU. NEB SCH ×3 (05:22→21:57)
[2018-04-25 05:25] VITALS: BP 123/78
[2018-04-25 07:18] LABS: BASO # 0.1 x10^3/uL (0.0-0.2); BASO % 1 % (0-3); EOS # 0.9 x10^3/uL (0.0-0.7); EOS % 5 % (0-3); HEMATOCRIT 24.8 % (36.0-47.0); HEMOGLOBIN 7.8 g/dL (12.0-15.5); LYMPH % 23 % (24-48); MEAN CORPUSCULAR HEMOGLOBIN 28 pg (25-35); MEAN CORPUSCULAR HGB CONC 32 g/dL (31-37); MEAN CORPUSCULAR VOLUME 90 fL (79-100); MONO # 1.4 x10^3/uL (0.0-1.1); MONO % 8 % (0-9); NEUT # 11.1 x10^3uL (1.8-7.7); NEUT % 63 % (31-73); PLATELET COUNT 384 x10^3/uL (140-400); RED BLOOD COUNT 2.76 x10^6/uL (3.50-5.40); RED CELL DISTRIBUTION WIDTH 17.5 % (11.5-14.5); WHITE BLOOD COUNT 17.6 x10^3/uL (4.0-11.0)
[2018-04-25 07:21] LABS: CALCIUM 8.3 mg/dL (8.5-10.1); GFR 54.5; POTASSIUM 3.5 mmol/L (3.5-5.1)
[2018-04-25] MEDS: INSULIN LISPRO 300 UNITS/3 ML INSULN.PEN. SQ SCH ×3 (07:30→17:18)
[2018-04-25] MEDS: amLODIPine BESYLATE 5 MG TABLET PO SCH (09:00)
[2018-04-25] MEDS: CLOPIDOGREL BISULFATE 75 MG TABLET PO SCH (09:00)
[2018-04-25] MEDS: METOPROLOL TART IMMED RELEASE 25 MG TABLET PO SCH ×2 (09:00→21:59)
[2018-04-25] MEDS: LISINOPRIL 5 MG TABLET. PO SCH (09:00)
[2018-04-25] MEDS: INSULIN GLARGINE 300 UNITS/3 ML INSULN.PEN. SQ SCH ×2 (09:00→21:00)
[2018-04-25 10:13] LABS: % BANDS 5 % (0-9); % BASOS 0 % (0-3); % EOS 6 % (0-5); % LYMPHS 23 % (24-48); % MONOS 1 % (0-10); % SEGS 65 % (35-66); ANISOCYTOSIS PRESENT; HYPOCHROMIA PRESENT; PLT ESTIMATE ADEQUATE (ADEQUATE); POLYCHROMASIA PRESENT; TARGET CELLS OCC
[2018-04-25 10:38] VITALS: BP_SYST 103; BP_SYST 117; BP_DIAS 62; BP_DIAS 75
[2018-04-25 10:39] VITALS: BP 93/60
[2018-04-25] MEDS: DULoxetine HCL 60 MG CAPSULE.DR PO SCH (10:42)
[2018-04-25] MEDS: metFORMIN 500 MG TABLET PO SCH ×2 (10:42→17:07)
[2018-04-25] MEDS: PANTOPRAZOLE 40 MG TABLET. PO SCH (10:42)
[2018-04-25] MEDS: CETIRIZINE HCL 10 MG TABLET PO SCH (10:42)
[2018-04-25] MEDS: LACTOBACILLUS RHAMNOSUS GG 1 CAPSULE. PO SCH ×2 (10:42→21:58)
[2018-04-25] MEDS: busPIRone 10 MG TABLET. PO SCH (10:42)
[2018-04-25] MEDS: MULTIVITAMIN with MINERAL TABLET. PO SCH (10:42)
[2018-04-25] MEDS: FERROUS SULFATE 325 MG TABLET. PO SCH ×2 (10:45→22:00)
[2018-04-25] MEDS: buPROPion SR 150 MG TABLET.SA PO SCH (10:45)
[2018-04-25] MEDS: FLUTICASONE 50MCG/NASAL SPRAY 16GM BOTTLE. NS SCH (10:45)
[2018-04-25] MEDS: FAMOTIDINE 20 MG TABLET PO SCH (10:45)
[2018-04-25] MEDS: BUDESONIDE 3 MG CAP.ER.24H. PO SCH (10:46)
[2018-04-25] MEDS: SODIUM BICARBONATE 650 MG TABLET PO SCH (10:46)
[2018-04-25] MEDS: DICLOFENAC SODIUM 1% TOPICAL GEL 100GM TUBE. TP SCH ×4 (10:47→21:58)
[2018-04-25] MEDS: ZONISAMIDE 100 MG CAPSULE. PO SCH ×3 (10:47→21:59)
[2018-04-25] MEDS: clonazePAM 1 MG TABLET PO SCH ×3 (10:52→21:58)
[2018-04-25 12:04] LABS: FECAL OB PT NEGATIVE (NEG)
[2018-04-25 14:58] VITALS: BP 111/70
[2018-04-25 19:38] VITALS: BP 143/81
[2018-04-25] MEDS: ASA/APAP/CAFFEINE 250/250/65MG TABLET. PO PRN (20:09)
[2018-04-25] MEDS: NORTRIPTYLINE 25 MG CAPSULE PO SCH (21:58)
[2018-04-25] MEDS: MIRTAZAPINE 15 MG TABLET PO SCH (21:59)
[2018-04-25] MEDS: ATORVASTATIN CALCIUM 10 MG TABLET. PO SCH (21:59)
[2018-04-25] MEDS: TEMAZEPAM 15 MG CAPSULE PO SCH (21:59)
[2018-04-25] MEDS: carBAMazepine 200 MG TABLET PO SCH (21:59)
[2018-04-25] MEDS: rOPINIRole 1 MG TABLET. PO SCH (22:00)
--- NOTE | 2018-04-25 22:13 | PN ---
DATE: SUBJECTIVE: The patient is not feeling very well this morning, became orthostatic. We will put some Jobst stockings, DINA hoses on her. She had a significant drop in her blood pressure from 123 down to 93. She then felt lightheaded and tired with some respiratory rates up to 24, pulse 76, afebrile. The patient will continue to be monitored there. She will be switched over to Levaquin. Final cultures on her urine finally came back and shows that the Klebsiella pneumoniae and is sensitive to Levaquin, so she will be started on that as her white count had also gone up to about 17.6. OBJECTIVE: LUNGS: Otherwise, the patient's lungs are diminished, but clear. CARDIOVASCULAR: Regular sinus rhythm. ABDOMEN: Soft, nontender. NEUROLOGIC: The patient looks very tired, worn out. We will continue with her antibiotic to see if we can bring the white count down and she is diuresed well with the Lasix. May need to cutdown on the furosemide a little bit to also help also that her orthostatic blood pressure. Her budesonide, again, she is taking budesonide 3 mg daily, I may cut that down to just 1 mg. IMPRESSION: Therefore impression of sepsis, Klebsiella pneumoniae, urinary tract infection, leukocytosis, history of splenectomy, abdominal pain, diarrhea, type 2 diabetes, orthostatic hypotension, lightheadedness, dizziness, iron deficiency anemia. PLAN: I have doubled up on her iron supplement to bring that up and we will continue to monitor her accordingly on that situation. Clostridium difficile was negative as well. JAYMIE GE MD DR: MAURIZIO/luis angel JOB#: [id number] / [id number]
[2018-04-25] MEDS: HYDROcodone/APAP 5/325MG 1 TAB TABLET PO PRN (23:15)
[2018-04-25 23:16] VITALS: BP 167/88
[2018-04-26] MEDS: IPRATRPIUM/ALBUTEROL 0.5/2.5MG 3 ML NEBU. NEB SCH ×2 (05:01→09:29)
[2018-04-26 05:50] VITALS: BP 110/70
[2018-04-26 06:27] LABS: BASO # 0.1 x10^3/uL (0.0-0.2); BASO % 1 % (0-3); EOS % 6 % (0-3); HEMATOCRIT 23.7 % (36.0-47.0); HEMOGLOBIN 7.6 g/dL (12.0-15.5); LYMPH # 4.6 x10^3/uL (1.0-4.8); LYMPH % 29 % (24-48); MEAN CORPUSCULAR HEMOGLOBIN 29 pg (25-35); MEAN CORPUSCULAR HGB CONC 32 g/dL (31-37); MEAN CORPUSCULAR VOLUME 89 fL (79-100); MONO # 1.4 x10^3/uL (0.0-1.1); MONO % 8 % (0-9); NEUT # 9.1 x10^3uL (1.8-7.7); NEUT % 56 % (31-73); PLATELET COUNT 411 x10^3/uL (140-400); RED BLOOD COUNT 2.66 x10^6/uL (3.50-5.40); RED CELL DISTRIBUTION WIDTH 17.4 % (11.5-14.5); WHITE BLOOD COUNT 16.2 x10^3/uL (4.0-11.0)
[2018-04-26] MEDS: INSULIN LISPRO 300 UNITS/3 ML INSULN.PEN. SQ SCH ×2 (07:30→13:02)
[2018-04-26] MEDS: CLOPIDOGREL BISULFATE 75 MG TABLET PO SCH (09:00)
[2018-04-26] MEDS ORDERED: BUDESONIDE 3 MG CAP.ER.24H. PO SCH (09:00)
--- NOTE | 2018-04-26 09:13 | CONS ---
DATE OF CONSULTATION: 04/24/2018 NEUROLOGY CONSULTATION REFERRING PHYSICIAN: Dr. Moreland. REASON FOR CONSULTATION: Recurrent syncopal episode and falls. HISTORY OF PRESENT ILLNESS: This is a 72-year-old right-handed -Mex[place] female who was admitted through Emergency Room on 04/20/2018 on account of generalized weakness, frequent falls and possible syncopal attacks. According to the patient, she has had recurrent episodes when she passed out while standing. She described a very brief spell lasted a few seconds without postictal confusion or seizure-like activities. She denies any head injuries, bowel or bladder incontinence or tongue biting. The patient always is able to get up after the episode. Apparently, she possibly had 4 syncopal episodes, but she fell in 2 of them. She also complains of frequent vomiting and diarrhea. She also complains of migraine headaches described as severe one-sided headaches associated with nausea and sometimes vomiting, photophobia and phonophobia. The patient denies any history of seizure or recent head injuries. PAST MEDICAL HISTORY: Significant for coronary artery disease, COPD, depressions, diabetes mellitus, GERD, and urinary tract infection. PAST SURGICAL HISTORY: Significant for cholecystectomy, appendectomy, hysterectomy, splenectomy, tonsillectomy. SOCIAL HISTORY: The patient is . She denies smoking, alcohol drinking, or illicit drug use. CURRENT HOME MEDICATIONS: Excedrin for migraines, Tylenol, albuterol inhaler, amlodipine, Lipitor, Entocort, bupropion, BuSpar, carbamazepine, clonazepam, Plavix, Voltaren, Cymbalta, Pepcid, Flonase, Lortab, insulin, lisinopril, metformin, metoprolol, Remeron, nortriptyline, pantoprazole, allopurinol for restless leg syndrome. ALLERGIES: GRAPEFRUIT, HYDROMORPHONE, METOCLOPRAMIDE, MORPHINE, PHENYTOIN, ____, TRAZODONE, AND ZOLPIDEM. FAMILY HISTORY: Brother had stomach cancer. Sister had breast cancer. Father had hypertension, depression, and cardiovascular disease. Mother had gallbladder disease. PHYSICAL EXAMINATION: GENERAL: Well-developed, well-nourished female, not in acute distress. She weighs 155 pounds. VITAL SIGNS: Blood pressure 133/77, respiratory rate 24, pulse is 112, temperature 98.7, oxygen saturation 94% on 3 liters by nasal cannula. HEENT: Normocephalic, atraumatic, otherwise, unremarkable. NECK: Supple. Negative for carotid bruit, lymphadenopathy or thyromegaly. LUNGS: Clear to A and P. CARDIOVASCULAR: Regular rate and rhythm, normal S1, S2. ABDOMEN: Soft. Bowel sounds positive. EXTREMITIES: Negative for cyanosis, clubbing or pitting edema. NEUROLOGICAL EXAM: 1. Mental Status: The patient is alert and oriented x 3. The speech is fluent. There is no language dysfunction. Memory, judgment, and abstracting thinking are fair. The patient denies hallucination or delusion. 2. Cranial Nerves: Visual perez are full. The pupils are reactive to light and accommodation. The extraocular movements are intact. There is no nystagmus. There is no facial motor or sensory deficit. Hearing is intact bilaterally. The palate is elevated symmetrically. Sternocleidomastoid muscles are powerful bilaterally. The patient shrugs her shoulders symmetrically, protrudes her tongue in the midline without fasciculation or atrophy. 3. Motor: No focal muscle bulk was seen. The tone is normal. The strength is 4/5 throughout. 4. Sensory examination revealed normal pinprick, light touch, vibratory and position senses. Deep tendon reflexes were symmetric and hypoactive with absent Achilles responses. Gait not tested. LABORATORY DATA: CBC revealed white blood cells of 16.8 thousand, hemoglobin 8, hematocrit 25.4, platelet count 375,000. Chemistry revealed sodium of INCOMPLETE DICTATION M Bernard ROB MD DR: SYLVIE/luis angel JOB#: [id number] / [id number]
[2018-04-26] MEDS: LACTOBACILLUS RHAMNOSUS GG 1 CAPSULE. PO SCH (09:17)
[2018-04-26] MEDS: clonazePAM 1 MG TABLET PO SCH ×2 (09:17→13:03)
[2018-04-26] MEDS: busPIRone 10 MG TABLET. PO SCH (09:18)
[2018-04-26] MEDS: metFORMIN 500 MG TABLET PO SCH (09:18)
[2018-04-26] MEDS: LISINOPRIL 5 MG TABLET. PO SCH (09:18)
[2018-04-26] MEDS: FERROUS SULFATE 325 MG TABLET. PO SCH (09:18)
[2018-04-26] MEDS: DULoxetine HCL 60 MG CAPSULE.DR PO SCH (09:18)
[2018-04-26] MEDS: FAMOTIDINE 20 MG TABLET PO SCH (09:18)
[2018-04-26] MEDS: MULTIVITAMIN with MINERAL TABLET. PO SCH (09:18)
[2018-04-26] MEDS: buPROPion SR 150 MG TABLET.SA PO SCH (09:19)
[2018-04-26] MEDS: METOPROLOL TART IMMED RELEASE 25 MG TABLET PO SCH (09:19)
[2018-04-26] MEDS: ZONISAMIDE 100 MG CAPSULE. PO SCH ×2 (09:19→13:03)
[2018-04-26] MEDS: CETIRIZINE HCL 10 MG TABLET PO SCH (09:19)
[2018-04-26] MEDS: PANTOPRAZOLE 40 MG TABLET. PO SCH (09:19)
[2018-04-26] MEDS: amLODIPine BESYLATE 5 MG TABLET PO SCH (09:21)
[2018-04-26] MEDS: FLUTICASONE 50MCG/NASAL SPRAY 16GM BOTTLE. NS SCH (09:23)
[2018-04-26] MEDS: SODIUM BICARBONATE 650 MG TABLET PO SCH (09:23)
[2018-04-26] MEDS: INSULIN GLARGINE 300 UNITS/3 ML INSULN.PEN. SQ SCH (09:31)
[2018-04-26] MEDS: DICLOFENAC SODIUM 1% TOPICAL GEL 100GM TUBE. TP SCH ×2 (09:33→11:14)
[2018-04-26] MEDS ORDERED: IRON SUCROSE COMPLEX 200 MG in IV NORMAL SALINE 100ML 100 ML IV ONE (11:00)
[2018-04-26 11:11] VITALS: BP 104/62
[2018-04-26] MEDS: ASA/APAP/CAFFEINE 250/250/65MG TABLET. PO PRN (11:23)
--- NOTE | 2018-04-26 12:20 | CONS ---
DATE OF CONSULTATION: 04/24/2018 NEUROLOGY CONSULTATION REFERRING PHYSICIAN: Dr. Moreland. REASON FOR CONSULTATION: Recurrent syncopal episode and falls. HISTORY OF PRESENT ILLNESS: This is a 72-year-old right-handed -Serbian female who was admitted through Emergency Room on 04/20/2018 on account of generalized weakness, frequent falls and possible syncopal attacks. According to the patient, she has had recurrent episodes when she passed out while standing. She described a very brief spell lasted a few seconds without postictal confusion or seizure-like activities. She denies any head injuries, bowel or bladder incontinence or tongue biting. The patient always is able to get up after the episode. Apparently, she possibly had 4 syncopal episodes, but she fell in 2 of them. She also complains of frequent vomiting and diarrhea. She also complains of migraine headaches described as severe one-sided headaches associated with nausea and sometimes vomiting, photophobia and phonophobia. The patient denies any history of seizure or recent head injuries. PAST MEDICAL HISTORY: Significant for coronary artery disease, COPD, depressions, diabetes mellitus, GERD, and urinary tract infection. PAST SURGICAL HISTORY: Significant for cholecystectomy, appendectomy, hysterectomy, splenectomy, tonsillectomy. SOCIAL HISTORY: The patient is . She denies smoking, alcohol drinking, or illicit drug use. CURRENT HOME MEDICATIONS: Excedrin for migraines, Tylenol, albuterol inhaler, amlodipine, Lipitor, Entocort, bupropion, BuSpar, carbamazepine, clonazepam, Plavix, Voltaren, Cymbalta, Pepcid, Flonase, Lortab, insulin, lisinopril, metformin, metoprolol, Remeron, nortriptyline, pantoprazole, allopurinol for restless leg syndrome. ALLERGIES: GRAPEFRUIT, HYDROMORPHONE, METOCLOPRAMIDE, MORPHINE, PHENYTOIN, ____, TRAZODONE, AND ZOLPIDEM. FAMILY HISTORY: Brother had stomach cancer. Sister had breast cancer. Father had hypertension, depression, and cardiovascular disease. Mother had gallbladder disease. PHYSICAL EXAMINATION: GENERAL: Well-developed, well-nourished female, not in acute distress. She weighs 155 pounds. VITAL SIGNS: Blood pressure 133/77, respiratory rate 24, pulse is 112, temperature 98.7, oxygen saturation 94% on 3 liters by nasal cannula. HEENT: Normocephalic, atraumatic, otherwise, unremarkable. NECK: Supple. Negative for carotid bruit, lymphadenopathy or thyromegaly. LUNGS: Clear to A and P. CARDIOVASCULAR: Regular rate and rhythm, normal S1, S2. ABDOMEN: Soft. Bowel sounds positive. EXTREMITIES: Negative for cyanosis, clubbing or pitting edema. NEUROLOGICAL EXAM: 1. Mental Status: The patient is alert and oriented x 3. The speech is fluent. There is no language dysfunction. Memory, judgment, and abstracting thinking are fair. The patient denies hallucination or delusion. 2. Cranial Nerves: Visual perez are full. The pupils are reactive to light and accommodation. The extraocular movements are intact. There is no nystagmus. There is no facial motor or sensory deficit. Hearing is intact bilaterally. The palate is elevated symmetrically. Sternocleidomastoid muscles are powerful bilaterally. The patient shrugs her shoulders symmetrically, protrudes her tongue in the midline without fasciculation or atrophy. 3. Motor: No focal muscle bulk was seen. The tone is normal. The strength is 4/5 throughout. 4. Sensory examination revealed normal pinprick, light touch, vibratory and position senses. Deep tendon reflexes were symmetric and hypoactive with absent Achilles responses. Gait not tested. LABORATORY DATA: CBC revealed white blood cells of 16.8 thousand, hemoglobin 8, hematocrit 25.4, platelet count 375,000. Chemistry revealed sodium of IMPRESSION: 1. Frequent falls and syncopal episode, probably multifactorial including severe anemia, probably due to iron deficiency, rule out dehydration, orthostatic hypotension. 2. Multiple medical problems and include anemia with a hemoglobin of 7.6, diabetes mellitus, frequent migraine headaches, depression, anxiety, GERD, urinary tract infection, COPD, coronary artery disease and hyperlipidemia. RECOMMENDATIONS: 1. Continue with current management for sepsis and other medical problems. 2. We will add topiramate 25 mg twice daily for recurrent migraine headaches. 3. Physical therapy as tolerated. M Bernard ROB MD DR: SYLVIE/luis angel JOB#: [id number] / [id number]
--- NOTE | 2018-04-26 12:25 | PN ---
DATE: 04/26/2018 SUBJECTIVE: The patient complains of frequent headaches behind the left eye associated with photophobia, phonophobia, and sometimes with dizziness. 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 She has been on topiramate daily until 05/2017. The patient stated the topiramate had helped her in the past to prevent migraine-like headaches. OBJECTIVE: GENERAL: Well-developed, well-nourished female, not in acute distress. VITAL SIGNS: Blood pressure 110/70, respiratory rate 20, pulse is 76, temperature is 97.8, oxygen saturation is 98% on 2 liters by nasal cannula. HEENT: The patient looked very pale. Normocephalic, atraumatic, otherwise unremarkable. NECK: Supple. Negative for carotid bruit, lymphadenopathy or thyromegaly. LUNGS: Clear to A and P. CARDIOVASCULAR: Regular rate and rhythm, normal S1, S2. ABDOMEN: Soft. Bowel sounds positive. EXTREMITIES: Negative for cyanosis, clubbing or pitting edema. NEUROLOGICAL EXAM: Mental Status: The patient is alert and oriented x 3. Speech is fluent. There is no language dysfunction, otherwise unremarkable. Cranial nerves are intact. Motor Examination: No focal muscle bulk was seen. The tone is normal. The strength is 4/5 throughout. Sensory examination revealed normal pinprick and light touch senses throughout. Deep tendon reflexes were symmetric and hypoactive with absent Achilles responses. Gait not tested at this time. LABORATORY DATA: CBC revealed white blood cells of 16.2 thousand, hemoglobin 7.6, hematocrit 23.7, platelet count 411,000. Chemistry revealed sodium 139, potassium 4.1, chloride 107, CO2 of 21, BUN 13, creatinine 1, glucose 124. IMPRESSION: 1. Frequent falls and syncopal episode, probably multifactorial including severe anemia, probably due to iron deficiency, rule out dehydration, orthostatic hypotension. 2. Multiple medical problems and include anemia with a hemoglobin of 7.6, diabetes mellitus, frequent migraine headaches, depression, anxiety, GERD, urinary tract infection, COPD, coronary artery disease and hyperlipidemia. RECOMMENDATIONS: 1. Continue with current management for sepsis and other medical problems. 2. We will add topiramate 25 mg twice daily for recurrent migraine headaches. 3. Physical therapy as tolerated. M Bernard ROB MD DR: SYLVIE/luis angel JOB#: [id number] / [id number]
[2018-04-26] MEDS ORDERED: POLYVINYL ALCOHOL/POVIDONE/PF OPHTH SOLUTION DROPERETTE. OU PRN (13:00)
[2018-04-26 14:44] VITALS: BP 118/63
[2018-04-26] MEDS ORDERED: TOPIRAMATE 25 MG TABLET. PO SCH (21:00)
[2018-04-27] MEDS ORDERED: ASPIRIN ENTERIC COATED 81 MG TABLET.DR. PO SCH (09:00)
== END 2018-04-26 15:42 | DRG 871 ==
LOC: ER 14:32 → 1 SOUTH 18:10
PROVIDERS: ADMIT Family Medicine; ATTEND Family Medicine
DX: A41.9 Sepsis, unspecified organism (principal); N17.0 Acute kidney failure with tubular necrosis; N39.0 Urinary tract infection, site not specified; B96.1 Klebsiella pneumoniae [K. pneumoniae] as the cause of diseases classified elsewhere; D18.00 Hemangioma unspecified site; D50.9 Iron deficiency anemia, unspecified; E78.5 Hyperlipidemia, unspecified; E86.0 Dehydration; F32.9 Major depressive disorder, single episode, unspecified; F41.9 Anxiety disorder, unspecified; G25.81 Restless legs syndrome; G43.909 Migraine, unspecified, not intractable, without status migrainosus; I25.10 Atherosclerotic heart disease of native coronary artery without angina pectoris; J44.9 Chronic obstructive pulmonary disease, unspecified; K21.9 Gastro-esophageal reflux disease without esophagitis; R29.6 Repeated falls; Z79.4 Long term (current) use of insulin; Z80.0 Family history of malignant neoplasm of digestive organs; Z80.3 Family history of malignant neoplasm of breast; Z81.8 Family history of other mental and behavioral disorders; Z82.49 Family history of ischemic heart disease and other diseases of the circulatory system; Z90.49 Acquired absence of other specified parts of digestive tract; Z90.710 Acquired absence of both cervix and uterus; Z90.81 Acquired absence of spleen; I12.9 Hypertensive chronic kidney disease with stage 1 through stage 4 chronic kidney disease, or unspecified chronic kidney disease; E11.22 Type 2 diabetes mellitus with diabetic chronic kidney disease; N18.2 Chronic kidney disease, stage 2 (mild)
CPT/HCPCS: 36415; 70220; 70450; 71045; 74176; 78582; 80048; 80053; 80202; 81001; 82274; 82550; 82947; 83540; 83550; 83605; 84132; 84484; 85007; 85025; 85045; 85379; 86738; 87086; 87186; 87493; 93005; 94640; 94760; 96361; 96374; A9540; A9558; J0456; J1756; J1815; J1940; J1956; J2405; J2543; J3370; J7040; J7050; J7620; 99285-25; J7030

== ENCOUNTER 2018-05-04 23:50 | Inpatient (IN) | payer MEDICARE, OTHER ==
[~2018-05-04] VITALS: Ht 144.8 cm; Wt 68.3 kg
[~2018-05-04 23:50] MED LIST changes: +AMLO5TAB10 PO; -AMLO5TAB7 PO; +CYAN-25 PO; -CYAN10005 PO; -MONT10TA6 PO; +MONT10TA80 PO; -MONT10TA9 PO; -TIZA4TAB PO; +TIZA4TAB2 PO
--- NOTE | 2018-05-04 23:54 | ED.ADGEN ---
Past History Past Medical History: CAD, COPD, Depression, Diabetes, GERD, Hypertension, UTI Past Surgical History: Appendectomy, Cholecystectomy, Hysterectomy, Spleenectomy, Tonsillectomy Additional Past Surgical Histo: several failed hernia surgeries Smoking: Non-smoker Alcohol Use: None Drug Use: None Adult General Chief Complaint Chief Complaint "..I ve been vomiting..so much.. I could not count... and so many stools I can' t count,," HPI HPI Patient is a 72 year old female who presents with above hx and complaints nausea , vomiting and diarrhea. Patient reports multiple episodes of watery stools. No history of tarry or bloody stools. Patient does have history of immunosuppression due to splenectomy. Patient also has history of diabetes and hypertension. Patient denies any specific ill contacts. Patient currently at [facility] for rehabilitation. Patient has been a resident there since previous discharge from [facility]. History of multiple medical problems including generalized weakness, anemia, gait disorder, depression, GERD, COPD, diabetes, chronic renal disease, hypertension, asthma, anxiety disorder, allergic rhinitis, hyperlipidemia, generalized deconditioning. Patient normally follows Dr. Hong. Review of Systems Review of Systems Constitutional: Denies fever or chills [] Eyes: Denies change in visual acuity, redness, or eye pain [] HENT: Denies nasal congestion or sore throat [] Respiratory: Denies cough or shortness of breath [] Cardiovascular: No additional information not addressed in HPI [] GI: Complaints of generalized crampy abdominal pain, nausea, vomiting, and diarrhea [] : Denies dysuria or hematuria [] Musculoskeletal: Denies back pain or joint pain [] Integument: Denies rash or skin lesions [] Neurologic: Denies headache, focal weakness or sensory changes [] Endocrine: Denies polyuria or polydipsia [] All other systems were reviewed and found to be within normal limits, except as documented in this note. Family History Family History Noncontributory Current Medications Current Medications See nursing for home meds Current Medications Medications (Trade) Dose Ordered Sig/Kristin Start Time Stop Time Status Last Admin Dose Admin Acetaminophen (Tylenol) 650 mg PRN Q4HRS PRN 05/05/18 01:30 05/06/18 01:29 Famotidine (Pepcid Vial) 20 mg 1X ONCE 05/05/18 00:30 05/05/18 00:31 DC 05/05/18 00:22 20 MG Lactated Ringer's 1,000 ml @ 1,000 mls/hr Q1H 05/05/18 00:30 05/05/18 01:29 DC 05/05/18 00:21 1,000 MLS/HR Metronidazole 100 ml @ 100 mls/hr Q8HRS 05/05/18 02:00 Ondansetron HCl (Zofran) 4 mg PRN Q4HRS PRN 05/05/18 01:30 05/06/18 01:29 Sodium Chloride 500 ml @ As Directed STK-MED ONCE 05/05/18 02:19 05/05/18 02:22 DC Vancomycin HCl (Vanco Per Pharmacy) 1 each PRN DAILY PRN 05/05/18 01:30 Vancomycin HCl (Vancomycin Trough Level) 1 each 1X ONCE 05/07/18 01:30 05/07/18 01:31 Vancomycin HCl (Vancomycin) 1 gm STK-MED ONCE 05/05/18 02:22 05/05/18 02:24 DC Vancomycin HCl 1.5 gm/Sodium Chloride 500 ml @ 250 mls/hr 1X ONCE 05/05/18 02:00 05/05/18 03:59 05/05/18 02:00 250 MLS/HR Vancomycin HCl 1 gm/Sodium Chloride 250 ml @ 250 mls/hr Q24H 05/06/18 02:00 Allergies Allergies Allergies Coded Allergies Type Severity Reaction Last Updated Verified grapefruit Allergy Intermediate 12/19/14 Yes hydromorphone Allergy Intermediate 12/19/14 Yes metoclopramide Allergy Intermediate 09/03/14 Yes morphine Allergy Intermediate 09/03/14 Yes phenytoin Allergy Intermediate 09/03/14 Yes ropinirole Allergy Intermediate 04/23/18 Yes trazodone Allergy Intermediate 09/03/14 Yes zolpidem Allergy Intermediate 03/24/17 Yes Physical Exam Physical Exam Constitutional: Moderately acute distress, non-toxic appearance. [] HENT: Normocephalic, atraumatic, bilateral external ears normal, oropharynx moist, no oral exudates, nose normal. [] Eyes: PERRLA, EOMI, conjunctiva normal, no discharge. [] Neck: Normal range of motion, no tenderness, supple, no stridor. [] Cardiovascular:Heart rate regular rhythm, no murmur [] Lungs & Thorax: Bilateral breath sounds equal apex with few scattered wheezes on auscultation [] Abdomen: Bowel sounds hyperactive, soft, generalized tenderness, no masses, no pulsatile masses. Old scar.. Obese Skin: Warm, dry, no erythema, no rash. [] Back: No tenderness, no CVA tenderness. [] Extremities: No tenderness, no cyanosis, no clubbing, ROM intact, equal edema. [ ] Neurologic: Alert and oriented X 3, normal motor function, normal sensory function, no focal deficits noted. [] Psychologic: Affect anxious, judgement normal, mood depressed Current Patient Data Vital Signs Vital Signs Date Time Temp Pulse Resp B/P (MAP) Pulse Ox O2 Delivery O2 Flow Rate FiO2 05/05/18 02:55 87 19 100/42 (61) 96 Nasal Cannula 2.0 05/05/18 00:56 97.6 Lab Results Laboratory Tests Test 05/05/18 00:20 05/05/18 01:35 05/05/18 02:20 White Blood Count 28.2 x10^3/uL (4.0-11.0) H Red Blood Count 3.98 x10^6/uL (3.50-5.40) Hemoglobin 11.5 g/dL (12.0-15.5) L Hematocrit 36.7 % (36.0-47.0) Mean Corpuscular Volume 92 fL (79-100) Mean Corpuscular Hemoglobin 29 pg (25-35) Mean Corpuscular Hemoglobin Concent 31 g/dL (31-37) Red Cell Distribution Width 18.7 % (11.5-14.5) H Platelet Count 891 x10^3/uL (140-400) #H Neutrophils (%) (Auto) 89 % (31-73) H Lymphocytes (%) (Auto) 6 % (24-48) L Monocytes (%) (Auto) 3 % (0-9) Eosinophils (%) (Auto) 1 % (0-3) Basophils (%) (Auto) 0 % (0-3) Neutrophils # (Auto) 25.1 x10^3uL (1.8-7.7) H Lymphocytes # (Auto) 1.8 x10^3/uL (1.0-4.8) Monocytes # (Auto) 0.9 x10^3/uL (0.0-1.1) Eosinophils # (Auto) 0.3 x10^3/uL (0.0-0.7) Basophils # (Auto) 0.1 x10^3/uL (0.0-0.2) Segmented Neutrophils % 81 % (35-66) H Band Neutrophils % 9 % (0-9) Lymphocytes % 7 % (24-48) L Monocytes % 1 % (0-10) Eosinophils % 1 % (0-5) Basophils % 1 % (0-3) Platelet Estimate Increased (ADEQUATE) Polychromasia Present Hypochromasia Present Anisocytosis Present Microcytosis Present Macrocytosis Present Prothrombin Time 11.2 SEC (9.4-11.4) Prothrombin Time INR 1.1 (0.9-1.1) PTT 25 SEC (23-33) Sodium Level 133 mmol/L (136-145) L Potassium Level 5.6 mmol/L (3.5-5.1) H Chloride Level 98 mmol/L (98-107) Carbon Dioxide Level 21 mmol/L (21-32) Anion Gap 14 (6-14) Blood Urea Nitrogen 33 mg/dL (7-20) H Creatinine 1.7 mg/dL (0.6-1.0) H Estimated GFR (Cockcroft-Gault) 29.5 Glucose Level 228 mg/dL (70-99) H Calcium Level 9.1 mg/dL (8.5-10.1) Total Bilirubin 0.3 mg/dL (0.2-1.0) Direct Bilirubin 0.1 mg/dL (0.0-0.2) Aspartate Amino Transferase (AST) 25 U/L (15-37) Alanine Aminotransferase (ALT) 32 U/L (14-59) Alkaline Phosphatase 115 U/L (46-116) Creatine Kinase 37 U/L (26-192) Troponin I Quantitative 0.018 ng/mL (0-0.055) Total Protein 9.5 g/dL (6.4-8.2) H Albumin 3.5 g/dL (3.4-5.0) Lipase 140 U/L (73-393) Urine Collection Type U cath Urine Color Yellow Urine Clarity Clear Urine pH 5.5 Urine Specific [place] 1.020 Urine Protein 30 mg/dl (NEG-TRACE) Urine Glucose (UA) Neg mg/dL (NEG) Urine Ketones (Stick) Trace mg/dL (NEG) Urine Blood Neg (NEG) Urine Nitrite Neg (NEG) Urine Bilirubin Neg (NEG) Urine Urobilinogen Dipstick 0.2 mg/dL (0.2 mg/dL) Urine Leukocyte Esterase Neg (NEG) Urine RBC 0 /HPF (0-2) Urine WBC 0 /HPF (0-4) Urine Squamous Epithelial Cells Few /LPF Urine Amorphous Sediment Present /HPF Urine Bacteria Few /HPF (0-FEW) Urine Mucus Slight /LPF Urine Opiates Screen Neg (NEG) Urine Methadone Screen Neg (NEG) Urine Barbiturates Pos (NEG) Urine Phencyclidine Screen Neg (NEG) Urine Amphetamine/Methamphetamine Neg (NEG) Urine Benzodiazepines Screen Neg (NEG) Urine Cocaine Screen Neg (NEG) Urine Cannabinoids Screen Neg (NEG) Urine Ethyl Alcohol Neg (NEG) Lactic Acid Level 1.4 mmol/L (0.4-2.0) EKG EKG My interpretation EKG shows a sinus rhythm at 75 bpm. There is some nonspecific left port axis. No findings acute STEMI of contralateral changes[] Radiology/Procedures Radiology/Procedures I interpretation chest x-ray shows no acute cardiopulmonary changes from last film on file. Does have some findings of pulmonary edema but is improved from prior film. Does have cardiomegaly. Acute abdomen film still pending at time of admission.[] Course & Med Decision Making Course & Med Decision Making Pertinent Labs and Imaging studies reviewed. (See chart for details). Patient had multiple stools while in the emergency department Discussed presentation, testing and treatment plan with - Will be admitted for further treatment and evaluation. [] Final Impression Final Impression 1. Nausea vomiting diarrhea 2. Dehydration 3, Leukocytosis 28 with 81 Segs 4. Thrombocytosis 891 5. DM -228 gluc[] 6. Hyponatremia 133 7. Hyperkalemia 8. Anemia 11.5 Hgb 9. Suspect C-diff 10.Hypotension 11. SIRs- Sepsis Dragon Disclaimer Dragon Disclaimer This electronic medical record was generated, in whole or in part, using a voice recognition dictation system. Dragon Disclaimer This chart was dictated in whole or in part using Voice Recognition software in a busy, high-work load, and often noisy Emergency Department environment. It may contain unintended and wholly unrecognized errors or omissions. Discharge Summary Visit Information Final Diagnosis Problems Medical Problems: (1) Abdominal pain Status: Acute Brief Hospital Course Allergies Allergies Coded Allergies Type Severity Reaction Last Updated Verified grapefruit Allergy Intermediate 12/19/14 Yes hydromorphone Allergy Intermediate 12/19/14 Yes metoclopramide Allergy Intermediate 09/03/14 Yes morphine Allergy Intermediate 09/03/14 Yes phenytoin Allergy Intermediate 09/03/14 Yes ropinirole Allergy Intermediate 04/23/18 Yes trazodone Allergy Intermediate 09/03/14 Yes zolpidem Allergy Intermediate 03/24/17 Yes Vital Signs Vital Signs Date Time Temp Pulse Resp B/P (MAP) Pulse Ox O2 Delivery O2 Flow Rate FiO2 05/05/18 06:24 90 18 100/46 (64) 95 Room Air 05/05/18 02:55 2.0 05/05/18 00:56 97.6 Lab Results Laboratory Tests Test 05/05/18 00:20 05/05/18 01:35 05/05/18 02:20 05/05/18 05:15 White Blood Count 28.2 x10^3/uL (4.0-11.0) Red Blood Count 3.98 x10^6/uL (3.50-5.40) Hemoglobin 11.5 g/dL (12.0-15.5) Hematocrit 36.7 % (36.0-47.0) Mean Corpuscular Volume 92 fL (79-100) Mean Corpuscular Hemoglobin 29 pg (25-35) Mean Corpuscular Hemoglobin Concent 31 g/dL (31-37) Red Cell Distribution Width 18.7 % (11.5-14.5) Platelet Count 891 x10^3/uL (140-400) Neutrophils (%) (Auto) 89 % (31-73) Lymphocytes (%) (Auto) 6 % (24-48) Monocytes (%) (Auto) 3 % (0-9) Eosinophils (%) (Auto) 1 % (0-3) Basophils (%) (Auto) 0 % (0-3) Neutrophils # (Auto) 25.1 x10^3uL (1.8-7.7) Lymphocytes # (Auto) 1.8 x10^3/uL (1.0-4.8) Monocytes # (Auto) 0.9 x10^3/uL (0.0-1.1) Eosinophils # (Auto) 0.3 x10^3/uL (0.0-0.7) Basophils # (Auto) 0.1 x10^3/uL (0.0-0.2) Segmented Neutrophils % 81 % (35-66) Band Neutrophils % 9 % (0-9) Lymphocytes % 7 % (24-48) Monocytes % 1 % (0-10) Eosinophils % 1 % (0-5) Basophils % 1 % (0-3) Platelet Estimate Increased (ADEQUATE) Polychromasia Present Hypochromasia Present Anisocytosis Present Microcytosis Present Macrocytosis Present Prothrombin Time 11.2 SEC (9.4-11.4) Prothromb Time International Ratio 1.1 (0.9-1.1) Activated Partial Thromboplast Time 25 SEC (23-33) Sodium Level 133 mmol/L (136-145) Potassium Level 5.6 mmol/L (3.5-5.1) Chloride Level 98 mmol/L (98-107) Carbon Dioxide Level 21 mmol/L (21-32) Anion Gap 14 (6-14) Blood Urea Nitrogen 33 mg/dL (7-20) Creatinine 1.7 mg/dL (0.6-1.0) Estimated GFR (Cockcroft-Gault) 29.5 Glucose Level 228 mg/dL (70-99) Calcium Level 9.1 mg/dL (8.5-10.1) Total Bilirubin 0.3 mg/dL (0.2-1.0) Direct Bilirubin 0.1 mg/dL (0.0-0.2) Aspartate Amino Transf (AST/SGOT) 25 U/L (15-37) Alanine Aminotransferase (ALT/SGPT) 32 U/L (14-59) Alkaline Phosphatase 115 U/L (46-116) Creatine Kinase 37 U/L (26-192) Troponin I Quantitative 0.018 ng/mL (0-0.055) Total Protein 9.5 g/dL (6.4-8.2) Albumin 3.5 g/dL (3.4-5.0) Lipase 140 U/L (73-393) Urine Collection Type U cath Urine Color Yellow Urine Clarity Clear Urine pH 5.5 Urine Specific [place] 1.020 Urine Protein 30 mg/dl (NEG-TRACE) Urine Glucose (UA) Neg mg/dL (NEG) Urine Ketones (Stick) Trace mg/dL (NEG) Urine Blood Neg (NEG) Urine Nitrite Neg (NEG) Urine Bilirubin Neg (NEG) Urine Urobilinogen Dipstick 0.2 mg/dL (0.2 mg/dL) Urine Leukocyte Esterase Neg (NEG) Urine RBC 0 /HPF (0-2) Urine WBC 0 /HPF (0-4) Urine Squamous Epithelial Cells Few /LPF Urine Amorphous Sediment Present /HPF Urine Bacteria Few /HPF (0-FEW) Urine Mucus Slight /LPF Urine Opiates Screen Neg (NEG) Urine Methadone Screen Neg (NEG) Urine Barbiturates Pos (NEG) Urine Phencyclidine Screen Neg (NEG) Urine Amphetamine/Methamphetamine Neg (NEG) Urine Benzodiazepines Screen Neg (NEG) Urine Cocaine Screen Neg (NEG) Urine Cannabinoids Screen Neg (NEG) Urine Ethyl Alcohol Neg (NEG) Lactic Acid Level 1.4 mmol/L (0.4-2.0) Influenza Type A (Rapid) Negative (NEGATIVE) Influenza Type B (Rapid) Negative (NEGATIVE) Brief Hospital Course Ms. Smith is a 72 old female who presented with N,V,D. Admitted Dr. Moreland Discharge Information Condition at Discharge: Improved Dischare Medications Current Medications Lactated Ringer's 1,000 ml @ 1,000 mls/hr Q1H IV Last administered on at 00:21; Start 05/05/18 at 00:30; Stop 05/05/18 at 01:29; Status DC Ondansetron HCl (Zofran) 8 mg 1X ONCE IV Last administered on 05/05/18at 00:22; Start 05/05/18 at 00:30; Stop 05/05/18 at 00:31; Status DC Famotidine (Pepcid Vial) 20 mg 1X ONCE IVP Last administered on 05/05/18at 00:22 ; Start 05/05/18 at 00:30; Stop 05/05/18 at 00:31; Status DC Vancomycin HCl 1 gm/Sodium Chloride 250 ml @ 250 mls/hr 1X ONCE IV ; Start 05/05/18 at 01:30; Stop 05/05/18 at 02:29; Status UNV Vancomycin HCl 1.5 gm/Sodium Chloride 500 ml @ 250 mls/hr 1X ONCE IV Last administered on 05/05/18at 02:00; Start 05/05/18 at 02:00; Stop 05/05/18 at 03:59; Status DC Vancomycin HCl (Vanco Per Pharmacy) 1 each PRN DAILY PRN MC SEE COMMENTS Last administered on 05/05/18at 04:17; Start 05/05/18 at 01:30 Ondansetron HCl (Zofran) 4 mg PRN Q4HRS PRN IV NAUSEA/VOMITING; Start 05/05/18 at 01:30; Stop 05/06/18 at 01:29 Acetaminophen (Tylenol) 650 mg PRN Q4HRS PRN PO FEVER; Start 05/05/18 at 01:30; Stop 05/06/18 at 01:29 Sodium Chloride 1,000 ml @ 2,000 mls/hr 1X ONCE IV Last administered on at 01:33; Start 05/05/18 at 01:30; Stop 05/05/18 at 01:59; Status DC Sodium Chloride 1,000 ml @ 160 mls/hr 1X ONCE IV ; Start 05/05/18 at 02:30; Stop 05/05/18 at 08:44 Metronidazole 100 ml @ 100 mls/hr Q8HRS IV ; Start 05/05/18 at 02:00 Sodium Chloride 500 ml @ As Directed STK-MED ONCE .ROUTE ; Start 05/05/18 at 02: 19; Stop 05/05/18 at 02:22; Status DC Vancomycin HCl (Vancomycin) 1 gm STK-MED ONCE .ROUTE ; Start 05/05/18 at 02:20; Stop 05/05/18 at 02:22; Status DC Vancomycin HCl (Vancomycin) 1 gm STK-MED ONCE .ROUTE ; Start 05/05/18 at 02:22; Stop 05/05/18 at 02:24; Status DC Vancomycin HCl 1 gm/Sodium Chloride 250 ml @ 250 mls/hr Q24H IV ; Start at 02:00 Vancomycin HCl (Vancomycin Trough Level) 1 each 1X ONCE MC ; Start 05/07/18 at 01:30; Stop 05/07/18 at 01:31 Active Scripts Active Reported Vitamin D3 (Cholecalciferol (Vitamin D3)) 1,000 Unit Tablet 1 Tab PO DAILY Hydrocodone-Apap 5-325 (Hydrocodone Bit/Acetaminophen) 1 Each Tablet 1 Tab PO PRN Q6HRS PRN Flagyl (Metronidazole) 500 Mg Tablet 1 Tab PO TID Ciprofloxacin Hcl 500 Mg Tablet 1 Tab PO BID Lipitor (Atorvastatin Calcium) 10 Mg Tablet 1 Tab PO QHS Klonopin (Clonazepam) 0.5 Mg Tablet 1 Tab PO TID Norvasc (Amlodipine Besylate) 5 Mg Tablet 1 Tab PO DAILY Zonisamide 100 Mg Capsule 100 Mg PO TID Clopidogrel (Clopidogrel Bisulfate) 75 Mg Tablet 1 Tab PO DAILY Nortriptyline Hcl 25 Mg Capsule 2 Cap PO QHS Metformin Hcl 1,000 Mg Tablet 1 Tab PO BID Flonase Allergy Relief (Fluticasone Propionate) 9.9 Ml [place].susp 2 Sprays NS DAILY Lisinopril 5 Mg Tablet 1 Tab PO DAILY Pantoprazole Sodium 40 Mg Tablet.dr 1 Tab PO DAILY Proair Hfa Inhaler (Albuterol Sulfate) 8.5 Gm Hfa.aer.ad 1 Puff INH PRN Q6HRS PRN Omro 3 1,000 Mg Softgel (Omro-3 Fatty Acids/Fish Oil) 1 Each Capsule 1 Each PO TID Wellbutrin Sr (Bupropion Hcl) 150 Mg Tablet.er 1 Tab PO BID Montelukast Sodium Tablet (Montelukast Sodium) 10 Mg Tablet 1 Tab PO HS Cymbalta (Duloxetine Hcl) 60 Mg Capsule.dr 1 Cap PO DAILY Vitamin C (Ascorbic Acid) 500 Mg Tablet 500 Mg PO BID Multi Vitamin Daily (Multivitamin) 1 Each Tablet 1 Each PO DAILY Vitamin B-12 (Cyanocobalamin (Vitamin B-12)) 1,000 Mcg Tablet 1 Tab PO DAILY Novolog Flexpen (Insulin Aspart) 100 Unit/1 Ml Insuln.pen 15 Unit SQ TIDAC Levemir Flextouch (Insulin Detemir) 100 Unit/1 Ml Insuln.pen 80 Unit SQ BID Remeron (Mirtazapine) 15 Mg Tablet 1 Tab PO QHS Tegretol (Carbamazepine) 200 Mg Tablet 1 Tab PO HS Buspirone Hcl 10 Mg Tablet 1 Tab PO DAILY Voltaren (Diclofenac Sodium) 100 Gm Gel..gram. 1 Gm TP QID Erythromycin (Erythromycin Base) 250 Mg Tablet 125 Mg PO BID Sodium Bicarbonate 650 Mg Tablet 1 Tab PO DAILY Loperamide (Loperamide Hcl) 2 Mg Capsule 2 Mg PO AFTER EACH LOOSE STO Ranitidine Hcl 150 Mg Tablet 1 Tab PO DAILY Requip (Ropinirole Hcl) 1 Mg Tablet 1 Tab PO QHS Aspirin 81 Mg Tab.chew 81 Mg PO DAILY Metoprolol Succinate ( Xl ) (Metoprolol Succinate) 25 Mg Tab.er.24h 0.5 Tab PO DAILY Duoneb 0.5-3(2.5) Mg/3 Ml (Albuterol/Ipratropium) 3 Ml Ampul.neb 3 Ml NEB TID OTIS BOUDREAUX MD May 04, 2018 23:54
[2018-05-05] VITALS (18 sets, daily range): BP systolic 95–143; BP diastolic 43–65
[2018-05-05] MEDS ORDERED: FAMOTIDINE 20 MG/2 ML VIAL IVP ONE (00:30)
[2018-05-05] MEDS ORDERED: ONDANSETRON PF 4 MG/2 ML VIAL. IV ONE (00:30)
[2018-05-05] MEDS ORDERED: IV RINGERS SOLUTION,LACTATED 1,000 ML IV SCH (00:30)
[2018-05-05 00:48] LABS: BASO # 0.1 x10^3/uL (0.0-0.2); BASO % 0 % (0-3); EOS # 0.3 x10^3/uL (0.0-0.7); EOS % 1 % (0-3); HEMATOCRIT 36.7 % (36.0-47.0); HEMOGLOBIN 11.5 g/dL (12.0-15.5); LYMPH # 1.8 x10^3/uL (1.0-4.8); LYMPH % 6 % (24-48); MEAN CORPUSCULAR HEMOGLOBIN 29 pg (25-35); MEAN CORPUSCULAR HGB CONC 31 g/dL (31-37); MEAN CORPUSCULAR VOLUME 92 fL (79-100); MONO # 0.9 x10^3/uL (0.0-1.1); MONO % 3 % (0-9); NEUT # 25.1 x10^3uL (1.8-7.7); NEUT % 89 % (31-73); PLATELET COUNT 891 x10^3/uL (140-400); RED BLOOD COUNT 3.98 x10^6/uL (3.50-5.40); RED CELL DISTRIBUTION WIDTH 18.7 % (11.5-14.5); WHITE BLOOD COUNT 28.2 x10^3/uL (4.0-11.0)
[2018-05-05 00:51] LABS: ALBUMIN 3.5 g/dL (3.4-5.0); CALCIUM 9.1 mg/dL (8.5-10.1); CREATININE 1.7 mg/dL (0.6-1.0); DIRECT BILIRUBIN 0.1 mg/dL (0.0-0.2); GFR 29.5; POTASSIUM 5.6 mmol/L (3.5-5.1); TOTAL BILIRUBIN 0.3 mg/dL (0.2-1.0); TOTAL PROTEIN 9.5 g/dL (6.4-8.2)
[2018-05-05] MEDS ORDERED: VANCOMYCIN 1 GM in IV NORMAL SALINE 250ML 250 ML IV ONE (01:30)
[2018-05-05] MEDS ORDERED: ONDANSETRON PF 4 MG/2 ML VIAL. IV PRN (01:30)
[2018-05-05] MEDS ORDERED: ACETAMINOPHEN 325 MG TABLET PO PRN (01:30)
[2018-05-05] MEDS ORDERED: IV NORMAL SALINE 1,000ML 1,000 ML IV ONE ×2 (01:30→02:30)
[2018-05-05 01:55] LABS: BILIRUBIN,URINE NEG (NEG); CLARITY,URINE CLEAR; COLOR,URINE YELLOW; GLUCOSE,URINE NEG (NEG)
[2018-05-05 01:56] LABS: AMORPHOUS SEDIMENT,UR PRESENT /HPF; BACTERIA,URINE FEW /HPF (0-FEW); NITRITE,URINE NEG (NEG); RBC,URINE 0 /HPF (0-2); SQUAMOUS EPITHELIAL CELL,UR FEW /LPF; UROBILINOGEN,URINE 0.2 mg/dL (0.2 mg/dL); WBC,URINE 0 /HPF (0-4)
[2018-05-05] MEDS ORDERED: VANCOMYCIN 1.5 GM in IV NORMAL SALINE 500ML 500 ML IV ONE (02:00)
[2018-05-05 02:08] LABS: % BANDS 9 % (0-9); % BASOS 1 % (0-3); % EOS 1 % (0-5); % LYMPHS 7 % (24-48); % MONOS 1 % (0-10); % SEGS 81 % (35-66); ANISOCYTOSIS PRESENT; HYPOCHROMIA PRESENT; PLT ESTIMATE INCREASED (ADEQUATE); POLYCHROMASIA PRESENT
[2018-05-05 02:08] LABS: BARBITURATES POS (NEG); BENZODIAZEPINES NEG (NEG); CANNABINOIDS NEG (NEG); COCAINE NEG (NEG); METHADONE NEG (NEG); OPIATES NEG (NEG); PHENCYCLIDINE NEG (NEG)
[2018-05-05 02:09] LABS: MICROCYTOSIS PRESENT
[2018-05-05 02:11] LABS: AMPHETAMINE/METHAMPHETAMINE NEG (NEG)
[2018-05-05] MEDS ORDERED: IV NORMAL SALINE 500ML 500 ML ONE (02:19)
[2018-05-05] MEDS ORDERED: VANCOMYCIN 1 GM VIAL. ONE ×2 (02:20→02:22)
[2018-05-05] MEDS: VANCOMYCIN PER PHARMACY MC PRN (04:17)
--- NOTE | 2018-05-05 04:18 | EKG ---
[address] [address] Test Date: 2018-05-05 Test Time: 00:58:57 Pat Name: PAMELA CAIN Department: Room: [place] [address] Gender: F Local Coordinator: SHLOMO : 1945 Requested By: OTIS BOUDREAUX Order Number: [id number] Reading MD: Cj Casey MD Measurements Intervals Burton Rate: 75 P: 31 UT: 170 QRS: -21 QRSD: 64 T: 59 QT: 420 QTc: 472 Interpretive Statements SINUS RHYTHM CANNOT RULE OUT PRIOR SEPTAL INFARCT NON-SPECIFIC ST/T CHANGES Electronically Signed On 05-07-2018 10:07:19 [employer] HISTORY by Cj Casey MD
--- NOTE | 2018-05-05 04:32 | RAD ---
AP chest x-ray COMPARISON: Chest x-ray April 23, 2018. HISTORY: Shortness of breath. FINDINGS: Thoracic spinal stimulator. Mild cardiomegaly stable. There is improvement of the pulmonary edema since the prior exam. No pneumothorax or pleural effusions. Chronic deformity of the right humeral neck again noted. IMPRESSION: Mild improvement of the pulmonary edema since the prior x-ray. Mild cardiomegaly is stable. Electronically signed by: Vinnie Gan MD (05/05/2018 4:27 AM) [facility]
[2018-05-05 06:18] LABS: INFLUENZA A PATIENT NEGATIVE (NEGATIVE); INFLUENZA B PATIENT NEGATIVE (NEGATIVE)
[2018-05-05] MEDS ORDERED: ALBUTEROL SULFATE 2.5 MG/3 ML NEBU. INH PRN (08:00)
[2018-05-05] MEDS ORDERED: HYDROcodone/APAP 5/325MG 1 TAB TABLET PO PRN (08:00)
[2018-05-05] MEDS ORDERED: LOPERAMIDE 2 MG CAPSULE PO PRN (08:30)
[2018-05-05] MEDS ORDERED: DEXTROSE 50% 25 GM / 50ML DISP.SYRIN. IV PRN (08:45)
[2018-05-05] MEDS ORDERED: ERYTHROMYCIN BASE 250 MG TABLET PO SCH (09:00)
[2018-05-05] MEDS: LISINOPRIL 5 MG TABLET. PO SCH (09:00)
[2018-05-05] MEDS ORDERED: CIPROFLOXACIN HCL 500 MG TABLET PO SCH (09:00)
[2018-05-05] MEDS ORDERED: NON FORMULARY ITEM (Metronidazole (Flagyl) 1 TAB) PO SCH (09:00)
[2018-05-05] MEDS ORDERED: ZONISAMIDE 25 MG PO SCH (09:00)
[2018-05-05] MEDS ORDERED: FLUTICASONE 50MCG/NASAL SPRAY 16GM BOTTLE. NS SCH (09:00)
[2018-05-05] MEDS: IPRATRPIUM/ALBUTEROL 0.5/2.5MG 3 ML NEBU. NEB SCH ×3 (09:00→20:51)
[2018-05-05] MEDS ORDERED: INSULIN GLARGINE 300 UNITS/3 ML INSULN.PEN. SQ SCH (09:00)
[2018-05-05] MEDS: amLODIPine BESYLATE 5 MG TABLET PO SCH (09:00)
[2018-05-05] MEDS: metFORMIN 500 MG TABLET PO SCH ×2 (09:09→17:14)
[2018-05-05] MEDS: busPIRone 10 MG TABLET. PO SCH (09:10)
[2018-05-05] MEDS: ASPIRIN 81 MG TAB.CHEW PO SCH (09:10)
[2018-05-05] MEDS: SODIUM BICARBONATE 650 MG TABLET PO SCH (09:10)
[2018-05-05] MEDS: DULoxetine HCL 60 MG CAPSULE.DR PO SCH (09:11)
[2018-05-05] MEDS: clonazePAM 0.5 MG TABLET PO SCH ×3 (09:12→21:10)
[2018-05-05] MEDS: FAMOTIDINE 20 MG TABLET PO SCH (09:12)
[2018-05-05] MEDS: OMEGA-3 FATTY ACIDS/FISH OIL 1,000 MG CAPSULE. PO SCH ×3 (09:12→21:10)
[2018-05-05] MEDS: MULTIVITAMIN with MINERAL TABLET. PO SCH (09:13)
[2018-05-05] MEDS: PANTOPRAZOLE 40 MG TABLET. PO SCH (09:13)
[2018-05-05] MEDS: CLOPIDOGREL BISULFATE 75 MG TABLET PO SCH (09:13)
[2018-05-05] MEDS: METOPROLOL SUCC 24HR ER 25 MG TAB.ER.24H. PO SCH (09:14)
[2018-05-05] MEDS: buPROPion SR 150 MG TABLET.SA PO SCH ×2 (09:15→21:10)
[2018-05-05] MEDS: CHOLECALCIFEROL (VITAMIN D3) 1,000 UNIT TABLET PO SCH (09:15)
[2018-05-05] MEDS: CYANOCOBALAMIN (VITAMIN B-12) 1,000 MCG TABLET. PO SCH (09:15)
[2018-05-05] MEDS: ASCORBIC ACID 500 MG TABLET PO SCH ×2 (09:15→21:10)
[2018-05-05] MEDS: ZONISAMIDE 100 MG CAPSULE. PO SCH ×3 (09:17→21:10)
[2018-05-05] MEDS: DICLOFENAC SODIUM 1% TOPICAL GEL 100GM TUBE. TP SCH ×4 (09:19→21:11)
[2018-05-05] MEDS ORDERED: INSULIN LISPRO 300 UNITS/3 ML INSULN.PEN. SQ SCH (12:00)
[2018-05-05] MEDS: INSULIN LISPRO 300 UNITS/3 ML INSULN.PEN. SQ SCH ×3 (12:00→17:00)
[2018-05-05] MEDS ORDERED: POLYVINYL ALCOHOL 1.4% OPHTH SOLUTION 15ML BOTTLE. OU PRN (14:00)
[2018-05-05] MEDS: ASA/APAP/CAFFEINE 250/250/65MG TABLET. PO PRN ×2 (14:18→22:15)
[2018-05-05] MEDS: IV NORMAL SALINE 1,000ML 1,000 ML IV SCH (14:19)
[2018-05-05 16:57] LABS: FECAL OB PT NEGATIVE (NEG)
[2018-05-05] MEDS: INSULIN GLARGINE 300 UNITS/3 ML INSULN.PEN. SQ SCH (21:00)
[2018-05-05] MEDS: NORTRIPTYLINE 25 MG CAPSULE PO SCH (21:10)
[2018-05-05] MEDS: MONTELUKAST 10 MG TABLET. PO SCH (21:10)
[2018-05-05] MEDS: MIRTAZAPINE 15 MG TABLET PO SCH (21:10)
[2018-05-05] MEDS: carBAMazepine 200 MG TABLET PO SCH (21:10)
[2018-05-05] MEDS: ATORVASTATIN CALCIUM 10 MG TABLET. PO SCH (21:10)
[2018-05-05] MEDS: rOPINIRole 1 MG TABLET. PO SCH (21:10)
[2018-05-05] MEDS: LACTOBACILLUS RHAMNOSUS GG 1 CAPSULE. PO SCH (21:10)
--- NOTE | 2018-05-05 21:17 | HP ---
ADMIT DATE: 05/05/2018 HISTORY OF PRESENT ILLNESS: The patient is a 72-year-old female who came in through the Emergency Room, apparently having problems with nausea, vomiting and diarrhea. The patient has had multiple episodes of watery stool. 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 The patient also has multiple other problems. The patient had a white count of 28,000 and as a result of this, the patient was admitted to the hospital for further evaluation and treatment. The patient is also a diabetic. Her C. diff and influenzas were negative. We will continue to monitor the patient on that, place her on IV fluids with her white count of 28,000, platelet count of almost 900,000. The patient was also having 9% bands. The patient was admitted for further evaluation and possible sepsis and make further evaluation on her as indicated. PAST MEDICAL HISTORY: As noted immunocompromised, splenectomy, tonsillectomy, headaches, heart attacks, coronary artery disease, hypercholesterolemia, respiratory disease, pneumonias. She is on chronic oxygen home therapy, sleep apnea, diverticulosis, obesity, umbilical hernia repair, gastroesophageal reflux, hysterectomy, renal disease, urinary tract infection, musculoskeletal disorders, back pain, endocrine disorders, spinal stimulator for pain in place. Psychiatric impression of severe depression, previous suicide attempt 25 years ago. She has had history of tardive dyskinesia but off medications and splenectomy. Influenza and pneumococcal vaccinations are all up-to-date. FAMILY HISTORY: Positive for brother and mother and another brother with diabetes as well as a sister, one brother with polio. One sister with breast cancer, hypertension in the father, cholecystectomy in the mother, depression in the father and cardiovascular disease in the father as well. ALLERGIES: GRAPEFRUIT, HYDROMORPHONE, METOCLOPRAMIDE, MORPHINE, DILANTIN, ROBINUL, TRAZODONE, AND AMBIEN. MEDICATIONS: See her medication list, reconciled in the chart. The doses have been reviewed. REVIEW OF SYSTEMS: Denies smoking, alcohol or drug use. Lives at home. SOCIAL HISTORY: No smoking, alcohol or chewing tobacco. REVIEW OF SYSTEMS: Nausea, vomiting with diarrhea. The patient denies any chest pain, shortness of breath. Does have chronic migraine headaches, but no visual changes, blurred vision, double vision. Denies any melena, hematochezia, or hematemesis and neurologically baseline except for her bad headache. PHYSICAL EXAMINATION: GENERAL: A pleasant white female, in moderate amount of distress, looking very fairly ill. VITAL SIGNS: Temperature was as high as 99.7, blood pressure as low as 82/44, respiratory rate 16, pulse as high as 95. The patient was given additional fluids and her blood pressure came up, temperature up to 99.7. HEENT: The patient's head was atraumatic, normocephalic. Eyes: PERRLA without jaundice. Mouth and throat: Poor dentition. NECK: Supple, no JVD or thyromegaly. LUNGS: Diminished throughout, but clear. CARDIOVASCULAR: Regular sinus rhythm. ABDOMEN: Soft, nontender, no rebound or guarding. Positive bowel sounds, no hepatosplenomegaly noted. EXTREMITIES: No clubbing, cyanosis, no edema. NEUROLOGIC: The patient was alert and oriented x 3. Speech fluent, spontaneous, appropriate. Cranial nerves 2-12 grossly intact. LABORATORY DATA: White count 28, hemoglobin 9.5, platelets elevated to 900,000; bands 9. Chemistries as indicated 133 sodium, 5.6 potassium, creatinine of 1.7, sugar 228. BNP of 5900. Urine unremarkable, positive for barbiturates, otherwise C. diff, influenza A, B negative. Stool hemoccult negative. MRSA negative. RADIOLOGICAL DATA: The patient's chest x-ray shows improvement of pulmonary edema. IMPRESSION: Severe nausea, vomiting, dehydration, probable gastroenteritis, probable sepsis, history of splenectomy, type 2 diabetes, tardive dyskinesia, obesity, diarrhea, thrombocytosis possibly related to her splenomegaly, dehydration, mild pulmonary edema, hyperkalemia, chronic kidney disease stage 3. IMPRESSION AND PLAN: The patient continued to be monitored in ICU, put her on vancomycin, small amount of IV fluids. Continue to monitor vital signs and make further evaluation on the progress of this individual. JAYMIE GE MD DR: MAURIZIO/luis angel JOB#: [id number] / [id number]
--- NOTE | 2018-05-05 22:06 | RAD ---
CT abdomen pelvis without contrast dated 05/05/2018. Comparison made to 04/21/2018. CLINICAL INDICATION: Abdominal pain and diarrhea. Increased white count. TECHNIQUE: Contiguous axial imaging of the abdomen and pelvis performed without the administration of IV or oral contrast. One or more of the following individualized dose reduction techniques were utilized for this examination: 1. Automated exposure control 2. Adjustment of the mA and/or kV according to patient size 3. Use of iterative reconstruction technique. FINDINGS: Images of the lung bases show patchy bibasilar airspace disease with small bilateral pleural effusions. Heart size mildly enlarged. Extensive coronary artery calcifications. No pericardial effusion. Solid abdominal viscera not well evaluated in the absence of contrast material. No apparent attenuation abnormality of the liver. The gallbladder and spleen are surgically absent. Pancreas, adrenal glands and kidneys are unremarkable. No stone or hydronephrosis. Unopacified GI tract is normal in caliber and contour. There are fluid-filled loops of small and large bowel. There is evidence of prior ventral hernia repair. There are 2 recurrent hernia defect along the margins of the mass to the left of midline that contains small bowel loops, unchanged from prior study. No bowel obstruction. No inflammatory changes in the mesentery. There is a third smaller hernia defect of the right of midline that contains only fat. Scattered diverticula throughout the colon. No focal bowel wall thickening. Images of the pelvis show mildly distended urinary bladder. The uterus is surgically absent. No free pelvic fluid or pelvic lymphadenopathy. Bone windows show no acute findings. Multilevel spondylosis. IMPRESSION: 1. There are fluid-filled loops of small and large bowel without evidence of focal bowel wall thickening or mesenteric inflammatory change. This could be related to enteritis. 2. There 2 prominent ventral hernias containing small bowel loops that are unchanged from prior study. No evidence of bowel obstruction. 3. Diverticulosis. 4. Status post cholecystectomy and hysterectomy. 5. Patchy bibasilar airspace disease, atelectasis versus edema. There are small bilateral pleural effusions. Electronically signed by: Cyrus Barrientos MD (05/05/2018 10:01 PM) [facility]
[2018-05-06] VITALS (24 sets, daily range): BP systolic 110–154; BP diastolic 45–75
[2018-05-06] MEDS: IV NORMAL SALINE 1,000ML 1,000 ML IV SCH (02:07)
[2018-05-06] MEDS: VANCOMYCIN 1 GM in IV NORMAL SALINE 250ML 250 ML IV SCH (02:07)
[2018-05-06] MEDS: IV DEXTROSE 5 %-0.45 % NACL 1,000 ML IV SCH ×2 (02:46→13:43)
[2018-05-06] MEDS: IPRATRPIUM/ALBUTEROL 0.5/2.5MG 3 ML NEBU. NEB SCH ×3 (05:23→20:53)
[2018-05-06 06:53] LABS: BASO # 0.1 x10^3/uL (0.0-0.2); BASO % 1 % (0-3); EOS # 0.9 x10^3/uL (0.0-0.7); EOS % 7 % (0-3); HEMATOCRIT 27.7 % (36.0-47.0); HEMOGLOBIN 8.6 g/dL (12.0-15.5); LYMPH # 3.5 x10^3/uL (1.0-4.8); LYMPH % 30 % (24-48); MEAN CORPUSCULAR HEMOGLOBIN 29 pg (25-35); MEAN CORPUSCULAR HGB CONC 31 g/dL (31-37); MEAN CORPUSCULAR VOLUME 94 fL (79-100); MONO # 1.3 x10^3/uL (0.0-1.1); MONO % 11 % (0-9); NEUT % 51 % (31-73); PLATELET COUNT 668 x10^3/uL (140-400); RED BLOOD COUNT 2.96 x10^6/uL (3.50-5.40); RED CELL DISTRIBUTION WIDTH 18.2 % (11.5-14.5); WHITE BLOOD COUNT 11.8 x10^3/uL (4.0-11.0)
[2018-05-06 06:57] LABS: CALCIUM 7.7 mg/dL (8.5-10.1); CREATININE 0.9 mg/dL (0.6-1.0); GFR 61.5; POTASSIUM 3.5 mmol/L (3.5-5.1)
[2018-05-06] MEDS: metFORMIN 500 MG TABLET PO SCH ×2 (07:31→16:30)
[2018-05-06] MEDS: INSULIN LISPRO 300 UNITS/3 ML INSULN.PEN. SQ SCH ×6 (07:31→17:00)
[2018-05-06] MEDS: PANTOPRAZOLE 40 MG TABLET. PO SCH (07:31)
[2018-05-06] MEDS: ASPIRIN 81 MG TAB.CHEW PO SCH (07:31)
[2018-05-06] MEDS: FLUTICASONE 50MCG/NASAL SPRAY 16GM BOTTLE. NS SCH (08:51)
[2018-05-06] MEDS: FAMOTIDINE 20 MG TABLET PO SCH (08:51)
[2018-05-06] MEDS: buPROPion SR 150 MG TABLET.SA PO SCH ×2 (08:51→21:25)
[2018-05-06] MEDS: MULTIVITAMIN with MINERAL TABLET. PO SCH (08:51)
[2018-05-06] MEDS: ASCORBIC ACID 500 MG TABLET PO SCH ×2 (08:51→21:25)
[2018-05-06] MEDS: clonazePAM 0.5 MG TABLET PO SCH ×3 (08:51→21:25)
[2018-05-06] MEDS: CHOLECALCIFEROL (VITAMIN D3) 1,000 UNIT TABLET PO SCH (08:52)
[2018-05-06] MEDS: LACTOBACILLUS RHAMNOSUS GG 1 CAPSULE. PO SCH ×2 (08:52→21:25)
[2018-05-06] MEDS: CLOPIDOGREL BISULFATE 75 MG TABLET PO SCH (08:52)
[2018-05-06] MEDS: CYANOCOBALAMIN (VITAMIN B-12) 1,000 MCG TABLET. PO SCH (08:52)
[2018-05-06] MEDS: OMEGA-3 FATTY ACIDS/FISH OIL 1,000 MG CAPSULE. PO SCH ×3 (08:52→21:25)
[2018-05-06] MEDS: busPIRone 10 MG TABLET. PO SCH (08:52)
[2018-05-06] MEDS: DULoxetine HCL 60 MG CAPSULE.DR PO SCH (08:52)
[2018-05-06] MEDS: DICLOFENAC SODIUM 1% TOPICAL GEL 100GM TUBE. TP SCH ×4 (08:53→21:26)
[2018-05-06] MEDS: METOPROLOL SUCC 24HR ER 25 MG TAB.ER.24H. PO SCH (08:53)
[2018-05-06] MEDS: ZONISAMIDE 100 MG CAPSULE. PO SCH ×3 (08:57→21:25)
[2018-05-06] MEDS: SODIUM BICARBONATE 650 MG TABLET PO SCH (08:57)
[2018-05-06] MEDS: amLODIPine BESYLATE 5 MG TABLET PO SCH (09:00)
[2018-05-06] MEDS: LISINOPRIL 5 MG TABLET. PO SCH (09:00)
[2018-05-06] MEDS: INSULIN GLARGINE 300 UNITS/3 ML INSULN.PEN. SQ SCH ×2 (09:00→21:00)
[2018-05-06] MEDS ORDERED: ELECTROLYTE (ICU) PROTOCOL. MC PRN (10:15)
[2018-05-06] MEDS ORDERED: LOPERAMIDE 2 MG CAPSULE PO PRN (10:15)
[2018-05-06] MEDS: NORTRIPTYLINE 25 MG CAPSULE PO SCH (21:25)
[2018-05-06] MEDS: rOPINIRole 1 MG TABLET. PO SCH (21:25)
[2018-05-06] MEDS: carBAMazepine 200 MG TABLET PO SCH (21:25)
[2018-05-06] MEDS: MIRTAZAPINE 15 MG TABLET PO SCH (21:25)
[2018-05-06] MEDS: ATORVASTATIN CALCIUM 10 MG TABLET. PO SCH (21:25)
[2018-05-06] MEDS: MONTELUKAST 10 MG TABLET. PO SCH (21:25)
--- NOTE | 2018-05-06 22:19 | PN ---
DATE: 05/06/2018 SUBJECTIVE: The patient is a 72-year-old female. She came in with markedly elevated problems of leukocytosis of 28,000. The patient was feeling quite ill with nausea, vomiting, diarrhea. The patient was placed on IV antibiotic therapy. Abdominal CT demonstrated multiple hernias, some of them fairly significant, but no entrapment of bowel. As a result of this, the patient is resting fairly comfortably. We are hydrating her carefully. Her white count dropped from 28,000 down to 11,000 and she is making there better progress. Blood sugars also were too low during the night, so we had to hold off on some of her hypoglycemic agents and they have come back up into range there. Otherwise, the patient seems to be making good progress, overall. We will continue to monitor, hydrate her gradually, make further evaluation on her, hopefully ready for discharge. IMPRESSION: Therefore, gastroenteritis, nausea, vomiting, diarrhea, dehydration, marked leukocytosis, probable SIRS and make further evaluation on her as indicated. JAYMIE GE MD DR: MAURIZIO/luis angel JOB#: [id number] / [id number]
[2018-05-07] VITALS (8 sets, daily range): BP systolic 96–119; BP diastolic 48–62
[2018-05-07 01:53] LABS: VANC TR 10.4 mcg/mL (10.0-20.0)
[2018-05-07] MEDS: VANCOMYCIN 1 GM in IV NORMAL SALINE 250ML 250 ML IV SCH (02:33)
[2018-05-07] MEDS: IV DEXTROSE 5 %-0.45 % NACL 1,000 ML IV SCH (02:34)
[2018-05-07] MEDS: VANCOMYCIN PER PHARMACY MC PRN (02:54)
[2018-05-07] MEDS: IPRATRPIUM/ALBUTEROL 0.5/2.5MG 3 ML NEBU. NEB SCH ×2 (05:21→09:11)
[2018-05-07] MEDS: INSULIN LISPRO 300 UNITS/3 ML INSULN.PEN. SQ SCH ×4 (08:00→12:00)
[2018-05-07] MEDS: INSULIN GLARGINE 300 UNITS/3 ML INSULN.PEN. SQ SCH (09:00)
[2018-05-07] MEDS: PANTOPRAZOLE 40 MG TABLET. PO SCH (09:04)
[2018-05-07] MEDS: buPROPion SR 150 MG TABLET.SA PO SCH (09:05)
[2018-05-07] MEDS: LACTOBACILLUS RHAMNOSUS GG 1 CAPSULE. PO SCH (09:05)
[2018-05-07] MEDS: LISINOPRIL 5 MG TABLET. PO SCH (09:05)
[2018-05-07] MEDS: busPIRone 10 MG TABLET. PO SCH (09:05)
[2018-05-07] MEDS: SODIUM BICARBONATE 650 MG TABLET PO SCH (09:05)
[2018-05-07] MEDS: CYANOCOBALAMIN (VITAMIN B-12) 1,000 MCG TABLET. PO SCH (09:05)
[2018-05-07] MEDS: CHOLECALCIFEROL (VITAMIN D3) 1,000 UNIT TABLET PO SCH (09:05)
[2018-05-07] MEDS: OMEGA-3 FATTY ACIDS/FISH OIL 1,000 MG CAPSULE. PO SCH ×2 (09:05→14:20)
[2018-05-07] MEDS: METOPROLOL SUCC 24HR ER 25 MG TAB.ER.24H. PO SCH (09:05)
[2018-05-07] MEDS: clonazePAM 0.5 MG TABLET PO SCH ×2 (09:05→14:20)
[2018-05-07] MEDS: DULoxetine HCL 60 MG CAPSULE.DR PO SCH (09:06)
[2018-05-07] MEDS: ASCORBIC ACID 500 MG TABLET PO SCH (09:06)
[2018-05-07] MEDS: FAMOTIDINE 20 MG TABLET PO SCH (09:06)
[2018-05-07] MEDS: ZONISAMIDE 100 MG CAPSULE. PO SCH ×2 (09:06→14:20)
[2018-05-07] MEDS: FLUTICASONE 50MCG/NASAL SPRAY 16GM BOTTLE. NS SCH (09:06)
[2018-05-07] MEDS: CLOPIDOGREL BISULFATE 75 MG TABLET PO SCH (09:06)
[2018-05-07] MEDS: ASPIRIN 81 MG TAB.CHEW PO SCH (09:06)
[2018-05-07] MEDS: MULTIVITAMIN with MINERAL TABLET. PO SCH (09:06)
[2018-05-07] MEDS: amLODIPine BESYLATE 5 MG TABLET PO SCH (09:06)
[2018-05-07] MEDS: DICLOFENAC SODIUM 1% TOPICAL GEL 100GM TUBE. TP SCH ×2 (09:07→14:21)
[2018-05-07] MEDS: metFORMIN 500 MG TABLET PO SCH (09:13)
[2018-05-07 10:01] LABS: BASO # 0.1 x10^3/uL (0.0-0.2); BASO % 1 % (0-3); EOS # 0.7 x10^3/uL (0.0-0.7); EOS % 7 % (0-3); HEMATOCRIT 28.2 % (36.0-47.0); HEMOGLOBIN 9.1 g/dL (12.0-15.5); LYMPH # 2.9 x10^3/uL (1.0-4.8); LYMPH % 28 % (24-48); MEAN CORPUSCULAR HEMOGLOBIN 30 pg (25-35); MEAN CORPUSCULAR HGB CONC 32 g/dL (31-37); MEAN CORPUSCULAR VOLUME 94 fL (79-100); MONO % 9 % (0-9); NEUT # 5.7 x10^3uL (1.8-7.7); NEUT % 55 % (31-73); PLATELET COUNT 620 x10^3/uL (140-400); RED BLOOD COUNT 3.01 x10^6/uL (3.50-5.40); RED CELL DISTRIBUTION WIDTH 18.5 % (11.5-14.5); WHITE BLOOD COUNT 10.3 x10^3/uL (4.0-11.0)
[2018-05-07 10:17] LABS: ALBUMIN 2.7 g/dL (3.4-5.0); ALBUMIN/GLOBULIN RATIO 0.6 (1.0-1.7); CREATININE 0.9 mg/dL (0.6-1.0); GFR 61.5; POTASSIUM 3.3 mmol/L (3.5-5.1); TOTAL BILIRUBIN 0.2 mg/dL (0.2-1.0); TOTAL PROTEIN 7.3 g/dL (6.4-8.2)
[2018-05-07] MEDS: ASA/APAP/CAFFEINE 250/250/65MG TABLET. PO PRN (10:57)
[2018-05-07] MEDS ORDERED: POTASSIUM CHLORIDE 20 MEQ TABLET.ER. PO ONE (12:00)
--- NOTE | 2018-05-07 14:52 | DISCH ---
HOME HEALTH DISCHARGE/MEDS DISCHARGE INFORMATION: Final Diagnosis: Problems Medical Problems: (1) Abdominal pain Status: Acute Condition on Discharge: Stable CODE STATUS: Code Status: Full HOME HEALTH: Face to Face: I certify this patient is under my care and that I, or a nurse practitioner or physician's property management assistant working with me, had a face to face encounter that meets the physician face to face encounter requirements with this patient on [Date]. Physical Therapy For: Evalulation/Treatment Occupational Therapy For: Evaluation/Treatment Speech Language Pathology For: Evaluation/Treatment POST DISCHARGE ORDERS: Activity Instructions for Disc: Resume previous activity DIET AFTER DISCHARGE: ADA TREATMENT/EQUIPMENT ORDERS: Adaptive Equipment Issued: None CERTIFICATION STATEMENT: Certification Statement: Based on the above finding, I certify that this patient is confined to the home and needs intermittent correction care, physical therapy and/or speech therapy, or continues to need occupational therapy.~ This patient is under my care, and I have initiated the establishment of the plan of care.~ This patient will be followed by myself or a community physician who will periodically review the plan of care. DISCHARGE MEDICATIONS: Home Meds Reported Medications Cholecalciferol (Vitamin D3) (VITAMIN D3) 1,000 Unit Tablet, 1 TAB PO DAILY, # 30 TAB 5 Refills 11/23/17 Hydrocodone Bit/Acetaminophen (HYDROCODONE-APAP 5-325 ) 1 Each Tablet, 1 TAB PO PRN Q6HRS PRN for PAIN, TAB 0 Refills 11/23/17 Metronidazole (FLAGYL) 500 Mg Tablet, 1 TAB PO TID, #14 TAB 11/23/17 Atorvastatin Calcium (LIPITOR) 10 Mg Tablet, 1 TAB PO QHS, #90 TAB 1 Refill 11/23/17 Clonazepam (KLONOPIN) 0.5 Mg Tablet, 1 TAB PO TID, #90 TAB 11/23/17 Amlodipine Besylate (NORVASC) 5 Mg Tablet, 1 TAB PO DAILY, #30 TAB 5 Refills 11/23/17 Zonisamide (ZONISAMIDE) 100 Mg Capsule, 100 MG PO TID, CAP 11/23/17 Clopidogrel Bisulfate (CLOPIDOGREL) 75 Mg Tablet, 1 TAB PO DAILY, #90 TAB 1 Refill 11/23/17 Nortriptyline Hcl (NORTRIPTYLINE HCL) 25 Mg Capsule, 2 CAP PO QHS, #30 CAP 3 Refills 11/23/17 Metformin Hcl (METFORMIN HCL) 1,000 Mg Tablet, 1 TAB PO BID, #60 TAB 5 Refills 11/23/17 Fluticasone Propionate (Flonase Allergy Relief) 9.9 Ml [place].susp, 2 SPRAYS NS DAILY, BOTTLE 11/23/17 Lisinopril (LISINOPRIL) 5 Mg Tablet, 1 TAB PO DAILY, #30 TAB 5 Refills 11/23/17 Pantoprazole Sodium (PANTOPRAZOLE SODIUM) 40 Mg Tablet.dr, 1 TAB PO DAILY, #30 TAB 3 Refills 11/23/17 Albuterol Sulfate (PROAIR HFA INHALER) 8.5 Gm Hfa.aer.ad, 1 PUFF INH PRN Q6HRS PRN for SHORTNESS OF BREATH, INHALER 0 Refills 11/23/17 Bupropion Hcl (WELLBUTRIN SR) 150 Mg Tablet.er, 1 TAB PO BID, #60 TAB 5 Refills 11/23/17 Montelukast Sodium (MONTELUKAST SODIUM TABLET) 10 Mg Tablet, 1 TAB PO HS, #30 TAB 5 Refills 11/23/17 Duloxetine Hcl (CYMBALTA) 60 Mg Capsule.dr, 1 CAP PO DAILY, #90 CAP 3 Refills 11/23/17 Ascorbic Acid (VITAMIN C) 500 Mg Tablet, 500 MG PO BID, TAB 11/23/17 Multivitamin (MULTI VITAMIN DAILY) 1 Each Tablet, 1 EACH PO DAILY, TAB 11/23/17 Cyanocobalamin (Vitamin B-12) (VITAMIN B-12) 1,000 Mcg Tablet, 1 TAB PO DAILY, # 30 TAB 2 Refills 11/23/17 Insulin Aspart (NOVOLOG FLEXPEN) 100 Unit/1 Ml Insuln.pen, 15 UNIT SQ TIDAC, SYR 11/23/17 Insulin Detemir (Levemir Flextouch) 100 Unit/1 Ml Insuln.pen, 80 UNIT SQ BID, SYR 11/23/17 Mirtazapine (REMERON) 15 Mg Tablet, 1 TAB PO QHS, #30 TAB 1 Refill 11/23/17 Carbamazepine (TEGRETOL) 200 Mg Tablet, 1 TAB PO HS, #60 TAB 1 Refill 11/23/17 Buspirone Hcl (BUSPIRONE HCL) 10 Mg Tablet, 1 TAB PO DAILY, #60 TAB 1 Refill 11/23/17 Diclofenac Sodium (VOLTAREN) 100 Gm Gel..gram., 1 GM TP QID, #100 GM 2 Refills 11/23/17 Erythromycin Base (ERYTHROMYCIN) 250 Mg Tablet, 125 MG PO BID, TAB 11/23/17 Sodium Bicarbonate (SODIUM BICARBONATE) 650 Mg Tablet, 1 TAB PO DAILY, #60 TAB 5 Refills 11/23/17 Loperamide Hcl (LOPERAMIDE) 2 Mg Capsule, 2 MG PO AFTER EACH LOOSE STO, CAP 11/23/17 Ranitidine Hcl (RANITIDINE HCL) 150 Mg Tablet, 1 TAB PO DAILY, #180 TAB 3 Refills 11/23/17 Ropinirole Hcl (REQUIP) 1 Mg Tablet, 1 TAB PO QHS, #30 TAB 2 Refills 11/23/17 Aspirin (ASPIRIN) 81 Mg Tab.chew, 81 MG PO DAILY, TAB 11/23/17 Metoprolol Succinate (METOPROLOL SUCCINATE ( XL )) 25 Mg Tab.er.24h, 0.5 TAB PO DAILY, #30 TAB 5 Refills 11/23/17 Ipratropium/Albuterol Sulfate (DUONEB 0.5-3(2.5) MG/3 ML) 3 Ml Ampul.neb, 3 ML NEB TID, EACH 11/23/17 AISLINN ALLEN MD May 07, 2018 14:52
--- NOTE | 2018-05-07 15:42 | DS ---
DATE OF DISCHARGE: 05/05/2018 HOSPITAL COURSE: The patient is a 72-year-old female patient, who was admitted from [facility] with recurrent bouts of nausea, vomiting and diarrhea. The patient is immunocompromised, has splenectomy and was found to have marked leukocytosis with a white cell count 28,000. Her platelet count is also extremely high at 900,000. Her stool was sent for C. diff that was negative. Influenza A and B were negative and so far all her blood cultures and stool cultures were negative. The patient, herself is stable. She has had no further episodes of nausea, vomiting or diarrhea. No abdominal pain. She is tolerating her diet and she does not want to go back to [place]. She wants to go home with home health. PHYSICAL EXAMINATION: GENERAL: When I saw her this afternoon, she looked pale, but no jaundice, cyanosis, or thyromegaly. No jugular venous distension. No lower limb edema. VITAL SIGNS: Her heart rate was 75, blood pressure was 117/49, temperature was 98.1, respiratory rate 18 and oxygen saturation was 96% on room air. HEAD, EYES, EARS, NOSE AND THROAT: Showed normocephalic, atraumatic. NECK: Supple. HEART: Showed normal first and second heart sounds. No gallop, rub or murmur. CHEST: Clear to auscultation. No crepitation or rhonchi. ABDOMEN: Distended, soft, nontender. NEUROLOGIC: She is awake, alert, responding appropriately. All cranial nerves intact. She moves extremities without difficulty. She ambulates without assistance or assistive devices. Her intake over the last 24 hours was 2200, output was 550. Her lab work showed a white cell count of 10,300, hemoglobin 9.1, hematocrit 28, MCV 94 and platelet count of 620,000. Her chemistry showed serum sodium 140, potassium 3.3, chloride 108, bicarbonate 20, anion gap of 12, BUN 5, creatinine 0.9, estimated GFR was 61 mL per minute. Her glucose 134, calcium was 8. Total bilirubin, AST, ALT, alkaline phosphatase were normal. Total protein was 7.3, albumin 2.7. Her prothrombin time was 11.2, INR of 1.1, aPTT was 25. Urinalysis was essentially unremarkable and was negative for nitrite, leukocyte esterase. No wbc's and no bacteria. Her influenza A and B were negative. Stool for Clostridium difficile toxins were negative. Her nasal screen for MRSA by PCR was negative and her stool for occult blood was negative. DISCHARGE MEDICATIONS: The patient was discharged home to continue on all her medication including albuterol sulfate 1 puff every 6 hours, amlodipine besylate 5 mg once a day, ascorbic acid 500 mg twice a day, aspirin 81 mg once a day, atorvastatin calcium 10 mg at bedtime, Wellbutrin SR 150 mg p.o. b.i.d., buspirone 10 mg daily, carbamazepine for Tegretol 200 mg at bedtime, vitamin D3 1000 international units once a day, clonazepam 0.5 mg 3 times a day, Plavix 75 mg once a day, cyanocobalamin 1000 mcg tablet once a day, diclofenac sodium for Voltaren 1 gram topically 4 times a day, Cymbalta 60 mg once a day, Flonase 2 sprays to each nostril once a day, hydrocodone/APAP 5/325 one tablet every 6 hours. She is on NovoLog insulin 15 units before meals and detemir insulin 80 units twice a day, ipratropium bromide, albuterol sulfate 3 times a day, lisinopril 5 mg once a day, loperamide 2 mg up to 16 mg a day, metformin 1000 mg twice a day, metoprolol succinate 25 mg once a day, mirtazapine for Remeron 15 mg at bedtime, Singulair 10 mg once a day at bedtime, multivitamin 1 tablet once a day, nortriptyline once a day she takes 50 mg at bedtime, Protonix 40 mg once a day, Requip 1 mg at bedtime, sodium bicarbonate 650 mg daily, zonisamide 100 mg 3 times a day. I have discontinued her erythromycin, metronidazole and ranitidine. FINAL DISCHARGE DIAGNOSES: Acute gastroenteritis, resolved. Her glucose was negative. Stool for cultures all negative. Blood cultures negative. Influenza A and B were negative. Other medical problems include the patient immune suppression because of splenectomy, coronary artery disease, hypercholesterolemia, obstructive sleep apnea, morbid obesity, umbilical hernia repair, gastroesophageal reflux disease. AISLINN ALLEN MD DR: EDILSON/luis angel JOB#: [id number] / [id number]
== END 2018-05-07 15:20 | disposition home or self-care (01) | DRG 872 ==
LOC: ER 23:50 → UNDOADMIN 05-05 01:00 → ICU 05-05 01:00 → ER 05-05 03:37
PROVIDERS: ADMIT Family Medicine; ATTEND Family Medicine
DX: A41.9 Sepsis, unspecified organism (principal); E87.1 Hypo-osmolality and hyponatremia; K52.9 Noninfective gastroenteritis and colitis, unspecified; E86.0 Dehydration; E87.5 Hyperkalemia; D89.9 Disorder involving the immune mechanism, unspecified; E11.22 Type 2 diabetes mellitus with diabetic chronic kidney disease; E66.01 Morbid (severe) obesity due to excess calories; E78.00 Pure hypercholesterolemia, unspecified; G47.33 Obstructive sleep apnea (adult) (pediatric); I12.9 Hypertensive chronic kidney disease with stage 1 through stage 4 chronic kidney disease, or unspecified chronic kidney disease; J44.9 Chronic obstructive pulmonary disease, unspecified; E78.5 Hyperlipidemia, unspecified; I25.10 Atherosclerotic heart disease of native coronary artery without angina pectoris; K21.9 Gastro-esophageal reflux disease without esophagitis; N18.9 Chronic kidney disease, unspecified; Z80.3 Family history of malignant neoplasm of breast; Z81.8 Family history of other mental and behavioral disorders; Z82.49 Family history of ischemic heart disease and other diseases of the circulatory system; Z90.49 Acquired absence of other specified parts of digestive tract; Z90.710 Acquired absence of both cervix and uterus; Z90.81 Acquired absence of spleen; Z91.5 Personal history of self-harm; Z99.81 Dependence on supplemental oxygen; Z83.3 Family history of diabetes mellitus; F32.9 Major depressive disorder, single episode, unspecified; F41.9 Anxiety disorder, unspecified; K57.90 Diverticulosis of intestine, part unspecified, without perforation or abscess without bleeding; Z87.440 Personal history of urinary (tract) infections; Z88.6 Allergy status to analgesic agent; Z88.1 Allergy status to other antibiotic agents; Z88.8 Allergy status to other drugs, medicaments and biological substances; Z91.018 Allergy to other foods
CPT/HCPCS: 36415; 71045; 74176; 80048; 80053; 80076; 80202; 80307; 81001; 82274; 82550; 82947; 83605; 83690; 83880; 84145; 84484; 85007; 85025; 85610; 85730; 87040; 87045; 87493; 87641; 87804; 93005; 94640; 96361; 96365; 96366; 96375; J1815; J2405; J3370; J3490; J7040; J7050; J7120; J7620; P9612; 99285-25; J7030

== ENCOUNTER → 2018-05-29 | Outpatient (CLI) | payer MEDICARE, OTHER ==
[2018-05-07 11:56] VITALS: BP 117/49
[~2018-05-29] MED LIST changes: -CYAN-25 PO; +CYAN10005 PO; +MONT10TA6 PO; -MONT10TA80 PO; +MONT10TA9 PO; +TIZA4TAB PO; -TIZA4TAB2 PO
--- NOTE | 2018-05-29 16:27 | CARD ---
MR#: [id number] Date of Study: 05/29/2018 Ordering Physician: SHADI KENNEDY, Referring Physician: SHADI KENNEDY, Tech: Lakia Shea [facility] APPROVED REPORT EXAM: Two-dimensional and M-mode echocardiogram with Doppler and color Doppler. Other Information Quality : Technically LimitedHR: 86bpm Rhythm : NSRTechnically limited study due to body habitus. INDICATION CAD 2D DIMENSIONS RVDd1.9 (2.9-3.5cm)Left Atrium(2D)2.5 (1.6-4.0cm) IVSd1.0 (0.7-1.1cm)Aortic Root(2D)2.7 (2.0-3.7cm) LVDd4.1 (3.9-5.9cm)LVOT Diameter1.8 (1.8-2.4cm) PWd1.1 (0.7-1.1cm)LVDs2.7 (2.5-4.0cm) FS (%) 33.7 %SV47.5 ml LVEF(%)60.0 (>50%) Aortic Valve AoV Peak Jhonathan.185.3cm/sAoV VTI37.5cm AO Peak GR.13.7mmHgLVOT Peak Jhonathan.98.5cm/s LVOT VTI 19.69cmAO Mean GR.8mmHg LIGIA (VMAX)1.35hu3HBP (VTI)1.28cm2 Mitral Valve MV E Urlaxbeh91.8cm/sMV DECEL [id number] MV A Ksdrtocr356.4cm/sE/A Ratio0.7 MV A [id number] Pulmonary Valve PV Peak Bmrsskym67.5cm/sPV Peak Grad.3mmHg Tricuspid Valve TR P. Rfxwfvea516zn/sRAP TLPAGOIQ6uaZe TR Peak Gr.28bvTaDAMK74ppPt LEFT VENTRICLE The left ventricle is normal size. There is normal left ventricular wall thickness. The left ventricu lar systolic function is normal. The Ejection Fraction is 55-60%. There is normal LV segmental wall m otion. Transmitral Doppler flow pattern is Grade I-abnormal relaxation pattern. RIGHT VENTRICLE The right ventricle is normal size. There is normal right ventricular wall thickness. The right ventr icular systolic function is normal. ATRIA The left atrium size is normal. The right atrium size is normal. The interatrial septum is intact wit h no evidence for an atrial septal defect or patent foramen ovale as noted on 2-D or Doppler imaging. AORTIC VALVE The aortic valve is probably trileaflet. Doppler and Color Flow revealed no significant aortic regurg itation. There is no significant aortic valvular stenosis. MITRAL VALVE Mitral annular calcification is mild. There is no evidence of mitral valve prolapse. There is no mitr al valve stenosis. Doppler and Color Flow revealed no mitral valve regurgitation noted. TRICUSPID VALVE The tricuspid valve is normal in structure and function. Doppler and Color Flow revealed trace tricus pid regurgitation. The PA pressure was estimated at 28 mmHg. There is no tricuspid valve prolapse or vegetation. There is no tricuspid valve stenosis. PULMONIC VALVE The pulmonary valve is normal in structure and function. Doppler and Color Flow revealed no pulmonic valvular regurgitation. There is no pulmonic valvular stenosis. GREAT VESSELS The aortic root is normal in size. The ascending aorta is normal in size. The IVC is normal in size a nd collapses >50% with inspiration. PERICARDIAL EFFUSION There is no evidence of significant pericardial effusion. Critical Notification Critical Value: No <Conclusion> The left ventricular systolic function is normal. The Ejection Fraction is 55-60%. Transmitral Doppler flow pattern is Grade I-abnormal relaxation pattern. Trace tricuspid regurgitation. The PA pressure was estimated at 28 mmHg. There is no evidence of significant pericardial effusion. Signed by : Shahid Medrano, Electronically Approved : 05/29/2018 16:27:20
== END | disposition home or self-care (01) ==
LOC: ECHO 10:26
PROVIDERS: ATTEND Internal Medicine Cardiovascular Disease
DX: I25.10 Atherosclerotic heart disease of native coronary artery without angina pectoris (principal); R00.8 Other abnormalities of heart beat
CPT/HCPCS: 93306

== ENCOUNTER → 2018-07-31 | Outpatient (CLI) | payer MEDICARE, OTHER ==
[2018-05-07 11:56] VITALS: BP 117/49
[~2018-07-31] MED LIST changes: +IOHEXOL 240 MG/ML 50ML VIAL. ONE
[2018-07-31 12:58] LABS: BASO # 0.1 x10^3/uL (0.0-0.2); BASO % 1 % (0-3); EOS # 0.4 x10^3/uL (0.0-0.7); EOS % 3 % (0-3); HEMATOCRIT 37.4 % (36.0-47.0); HEMOGLOBIN 12.2 g/dL (12.0-15.5); LYMPH # 4.6 x10^3/uL (1.0-4.8); LYMPH % 39 % (24-48); MEAN CORPUSCULAR HEMOGLOBIN 29 pg (25-35); MEAN CORPUSCULAR HGB CONC 33 g/dL (31-37); MEAN CORPUSCULAR VOLUME 90 fL (79-100); MONO # 0.9 x10^3/uL (0.0-1.1); MONO % 8 % (0-9); NEUT # 5.8 x10^3uL (1.8-7.7); NEUT % 49 % (31-73); PLATELET COUNT 557 x10^3/uL (140-400); RED BLOOD COUNT 4.14 x10^6/uL (3.50-5.40); WHITE BLOOD COUNT 11.8 x10^3/uL (4.0-11.0)
[2018-07-31 13:04] LABS: CALCIUM 9.7 mg/dL (8.5-10.1); CREATININE 1.4 mg/dL (0.6-1.0); MAGNESIUM 1.4 mg/dL (1.8-2.4); POTASSIUM 4.7 mmol/L (3.5-5.1)
--- NOTE | 2018-07-31 14:41 | RAD ---
EXAM: Abdomen and pelvis CT without intravenous contrast. HISTORY: Pain. TECHNIQUE: Computed tomographic images of the abdomen and pelvis were obtained following without intravenous contrast. Multiplanar reformatting was performed. *One or more of the following individualized dose reduction techniques were utilized for this examination: 1. Automated exposure control. 2. Adjustment of the mA and/or kV according to patient size. 3. Use of iterative reconstruction technique. COMPARISON: 05/05/2018. FINDINGS: Evaluation of the lower thorax demonstrates increased posterior extrapleural fat, an incidental finding. There is no pleural effusion or pneumothorax. No infiltrate is seen. There is coronary artery atherosclerosis. No hepatic lesion is seen. The liver appears upper normal in size. The gallbladder is surgically absent. There is a calcification within the pancreatic head which may be due to the sequela of chronic pancreatitis. There is no acute pancreatitis or focal pancreatic lesion. The spleen is absent. The adrenal glands are unremarkable. There is renal cortical lobulation, likely developmental or due to scarring. There is no evidence of obstructive uropathy or nephroureterolithiasis. The bladder is nearly empty. The uterus is surgically absent. There is moderate colonic stool. There are a few distal colonic diverticula. There are ventral abdominal wall hernias to the right and left of midline containing fat and a segment of small bowel. The larger hernia sac to the left of midline also contains a portion of the transverse colon. There is no evidence of incarceration or mechanical obstruction. There is ventral abdominal wall mesh due to prior hernia repair. There are few smaller tiny fat-containing ventral abdominal wall hernias. There is no aneurysm. There are several stable prominent retroperitoneal and mesenteric lymph nodes. There is no suspicious osseous lesion. There is a generator within the right buttock with lead extending cephalad beyond the ptrsl-tc-lwci. There are few vertebral body osseous hemangiomas, an incidental finding. There is a suspected tiny incidental lipoma within the lateral right ventral abdominal wall. IMPRESSION: 1. Ventral abdominal wall hernias containing segments of small bowel and a segment of the transverse colon. There is no evidence of incarceration or mechanical obstruction. These are stable to slightly increased compared to the prior study and superimposed on findings consistent with prior hernia repair. 2. Few distal colonic diverticula. Electronically signed by: Kaleigh Shanks MD (07/31/2018 2:38 PM) [place] [id number]
== END | disposition home or self-care (01) ==
LOC: CT 12:18
PROVIDERS: ATTEND Family Medicine
DX: K57.30 Diverticulosis of large intestine without perforation or abscess without bleeding (principal); K43.9 Ventral hernia without obstruction or gangrene; I25.10 Atherosclerotic heart disease of native coronary artery without angina pectoris; K59.00 Constipation, unspecified
CPT/HCPCS: 36415; 74176; 80048; 83615; 83735; 85025

== ENCOUNTER 2018-08-03 19:28 | Emergency (ER) | payer MEDICARE, OTHER ==
[~2018-08-03] VITALS: Ht 144.8 cm; Wt 64.0 kg
[~2018-08-03 19:28] MED LIST changes: -IOHEXOL 240 MG/ML 50ML VIAL. ONE
--- NOTE | 2018-08-03 20:48 | RAD ---
ACUTE ABDOMEN SERIES History: Abdominal pain. History of small bowel obstruction. Single view chest compared with 05/04/2018. Heart size is stable. No evidence of pneumothorax, pleural effusion or consolidating infiltrate. Bones are intact. Spinal stimulator device is again noted. 4 images of the abdomen are obtained. No evidence of free intraperitoneal gas. Surgical clips right upper quadrant. Bowel gas pattern is nonspecific but does not appear obstructive. The spinal stimulator pack is identified. IMPRESSION: Bowel gas pattern does not appear obstructive. No acute infiltrate in the chest. Electronically signed by: Cyrus Garrison MD (08/03/2018 8:45 PM) [facility]
--- NOTE | 2018-08-03 20:50 | ED.ADGEN ---
Past History Past Medical History: Arthritis, Gallstones Past Surgical History: No Surgical History, Appendectomy, Cholecystectomy, Hysterectomy, Tonsillectomy Additional Past Surgical Histo: several failed hernia surgeries Smoking: Non-smoker Alcohol Use: None Drug Use: None Adult General Chief Complaint Chief Complaint Abdominal pain HPI HPI Patient is a 72-year-old female with history of constipation, abdominal wall hernias and small bowel obstructions who presents with persistent diffuse abdominal pain described as cramping. Mild to moderate, malaise and diarrhea. Also reports malaise. Patient urged have formed bowel movement but states she is only having liquid diarrhea. Patient seen by PCP earlier this week and prescribed MiraLAX and Zofran. Denies nausea. No fever chills, sweats. No other acute symptoms or complaints.[] Review of Systems Review of Systems Review symptoms as per history of present illness. All other review symptoms are negative. All other systems were reviewed and found to be within normal limits, except as documented in this note. Current Medications Current Medications Current Medications Medications (Trade) Dose Ordered Sig/Kristin Start Time Stop Time Status Last Admin Dose Admin Acetaminophen/ Hydrocodone Bitart (Lortab 5/325) 1 tab 1X ONCE 08/03/18 23:30 08/03/18 23:42 DC 08/03/18 23:38 1 TAB Fentanyl Citrate (Fentanyl 2ml Vial) 25 mcg 1X ONCE 08/03/18 21:00 08/03/18 21:01 DC 08/03/18 22:14 25 MCG Iohexol (Omnipaque 300 Mg/ml) 60 ml 1X ONCE 08/03/18 23:00 08/03/18 23:01 DC 08/03/18 23:06 60 ML Ondansetron HCl (Zofran) 4 mg 1X ONCE 08/03/18 21:00 08/03/18 21:01 DC 08/03/18 22:14 4 MG Allergies Allergies Allergies Coded Allergies Type Severity Reaction Last Updated Verified grapefruit Allergy Intermediate 12/19/14 Yes hydromorphone Allergy Intermediate 12/19/14 Yes metoclopramide Allergy Intermediate 09/03/14 Yes morphine Allergy Intermediate 09/03/14 Yes phenytoin Allergy Intermediate 09/03/14 Yes ropinirole Allergy Intermediate 04/23/18 Yes trazodone Allergy Intermediate 09/03/14 Yes zolpidem Allergy Intermediate 03/24/17 Yes Physical Exam Physical Exam Constitutional: Well developed, well nourished, no acute distress, non-toxic appearance. [] HENT: Normocephalic, atraumatic, bilateral external ears normal, oropharynx moist, no oral exudates, nose normal. [] Eyes: PERRLA, EOMI, conjunctiva normal, no discharge. [] Neck: Normal range of motion, no tenderness, supple, no stridor. [] Cardiovascular:Heart rate regular rhythm, no murmur [] Lungs & Thorax: Bilateral breath sounds clear to auscultation [] Abdomen: Bowel sounds normal, soft, obesity compromising exam, quite bowel sounds.. [] Back: No tenderness, no CVA tenderness. [] Extremities: No tenderness, no cyanosis, no clubbing, ROM intact, no edema. [] Neurologic: Alert and oriented X 3, normal motor function, normal sensory function, no focal deficits noted. [] Psychologic: Affect normal, judgement normal, mood normal. [] Current Patient Data Lab Results Laboratory Tests Test 08/03/18 20:35 08/03/18 22:05 Urine Collection Type Unknown Urine Color Straw Urine Clarity Clear Urine pH 5.5 Urine Specific [place] <=1.005 Urine Protein Neg (NEG-TRACE) Urine Glucose (UA) Neg mg/dL (NEG) Urine Ketones (Stick) Neg mg/dL (NEG) Urine Blood Neg (NEG) Urine Nitrite Neg (NEG) Urine Bilirubin Neg (NEG) Urine Urobilinogen Dipstick 0.2 mg/dL (0.2 mg/dL) Urine Leukocyte Esterase Neg (NEG) Urine RBC 0 /HPF (0-2) Urine WBC Occ /HPF (0-4) Urine Squamous Epithelial Cells Occ /LPF Urine Bacteria 0 /HPF (0-FEW) White Blood Count 15.2 x10^3/uL (4.0-11.0) H Red Blood Count 3.75 x10^6/uL (3.50-5.40) Hemoglobin 11.0 g/dL (12.0-15.5) L Hematocrit 33.7 % (36.0-47.0) L Mean Corpuscular Volume 90 fL (79-100) Mean Corpuscular Hemoglobin 29 pg (25-35) Mean Corpuscular Hemoglobin Concent 33 g/dL (31-37) Red Cell Distribution Width 15.1 % (11.5-14.5) H Platelet Count 483 x10^3/uL (140-400) H Neutrophils (%) (Auto) 48 % (31-73) Lymphocytes (%) (Auto) 39 % (24-48) Monocytes (%) (Auto) 8 % (0-9) Eosinophils (%) (Auto) 4 % (0-3) H Basophils (%) (Auto) 1 % (0-3) Neutrophils # (Auto) 7.3 x10^3uL (1.8-7.7) Lymphocytes # (Auto) 5.8 x10^3/uL (1.0-4.8) H Monocytes # (Auto) 1.2 x10^3/uL (0.0-1.1) H Eosinophils # (Auto) 0.5 x10^3/uL (0.0-0.7) Basophils # (Auto) 0.2 x10^3/uL (0.0-0.2) Platelet Estimate Pending Sodium Level 131 mmol/L (136-145) L Potassium Level 4.4 mmol/L (3.5-5.1) Chloride Level 96 mmol/L (98-107) L Carbon Dioxide Level 25 mmol/L (21-32) Anion Gap 10 (6-14) Blood Urea Nitrogen 27 mg/dL (7-20) H Creatinine 1.1 mg/dL (0.6-1.0) H Estimated GFR (Cockcroft-Gault) 48.8 BUN/Creatinine Ratio 25 (6-20) H Glucose Level 153 mg/dL (70-99) H Calcium Level 9.3 mg/dL (8.5-10.1) Total Bilirubin 0.2 mg/dL (0.2-1.0) Aspartate Amino Transferase (AST) 17 U/L (15-37) Alanine Aminotransferase (ALT) 17 U/L (14-59) Alkaline Phosphatase 73 U/L (46-116) Total Protein 8.0 g/dL (6.4-8.2) Albumin 3.3 g/dL (3.4-5.0) L Albumin/Globulin Ratio 0.7 (1.0-1.7) L Lipase 76 U/L (73-393) EKG EKG [] Radiology/Procedures Radiology/Procedures CT ABD/PELvIS: No findings of obstruction per radiology report Course & Med Decision Making Course & Med Decision Making Pertinent Labs and Imaging studies reviewed. (See chart for details) [Abdomen soft, nontender nonsurgical. No findings of bowel obstruction. Elevated white blood cell count without obvious source of infection. Vital signs stable. Will treat supportively with PCP follow-up. Return cautions reviewed.] Final Impression Final Impression [1 abdominal pain 2. constipation] Dragon Disclaimer Dragon Disclaimer This electronic medical record was generated, in whole or in part, using a voice recognition dictation system. SABRINA YANES DO August 03, 2018 20:50
[2018-08-03] MEDS ORDERED: ONDANSETRON PF 4 MG/2 ML VIAL. IV ONE (21:00)
[2018-08-03 21:45] LABS: BACTERIA,URINE 0 /HPF (0-FEW); BILIRUBIN,URINE NEG (NEG); CLARITY,URINE CLEAR; COLOR,URINE STRAW; GLUCOSE,URINE NEG (NEG); NITRITE,URINE NEG (NEG); RBC,URINE 0 /HPF (0-2); SQUAMOUS EPITHELIAL CELL,UR OCC /LPF; UROBILINOGEN,URINE 0.2 mg/dL (0.2 mg/dL); WBC,URINE OCC /HPF (0-4)
[2018-08-03 22:19] LABS: BASO # 0.2 x10^3/uL (0.0-0.2); BASO % 1 % (0-3); EOS # 0.5 x10^3/uL (0.0-0.7); EOS % 4 % (0-3); HEMATOCRIT 33.7 % (36.0-47.0); LYMPH # 5.8 x10^3/uL (1.0-4.8); LYMPH % 39 % (24-48); MEAN CORPUSCULAR HEMOGLOBIN 29 pg (25-35); MEAN CORPUSCULAR HGB CONC 33 g/dL (31-37); MEAN CORPUSCULAR VOLUME 90 fL (79-100); MONO # 1.2 x10^3/uL (0.0-1.1); MONO % 8 % (0-9); NEUT # 7.3 x10^3uL (1.8-7.7); NEUT % 48 % (31-73); PLATELET COUNT 483 x10^3/uL (140-400); RED BLOOD COUNT 3.75 x10^6/uL (3.50-5.40); RED CELL DISTRIBUTION WIDTH 15.1 % (11.5-14.5); WHITE BLOOD COUNT 15.2 x10^3/uL (4.0-11.0)
[2018-08-03 22:37] LABS: ALBUMIN 3.3 g/dL (3.4-5.0); ALBUMIN/GLOBULIN RATIO 0.7 (1.0-1.7); CALCIUM 9.3 mg/dL (8.5-10.1); CREATININE 1.1 mg/dL (0.6-1.0); GFR 48.8; POTASSIUM 4.4 mmol/L (3.5-5.1); TOTAL BILIRUBIN 0.2 mg/dL (0.2-1.0)
[2018-08-03] MEDS ORDERED: IOHEXOL 300 MG/ML 75 ML VIAL. IV ONE (23:00)
[2018-08-03] MEDS ORDERED: HYDROcodone/APAP 5/325MG 1 TAB TABLET PO ONE (23:30)
--- NOTE | 2018-08-03 23:42 | RAD ---
PQRS Compliance statement: One or more of the following individualized dose reduction techniques were utilized for this examination: 1. Automated exposure control. 2. Adjustment of the mA and/or kV according to patient size. 3. Use of iterative reconstruction technique. Indication:Abdominal pain. TECHNIQUE: CT abdomen and pelvis with IV contrast with multiplanar reformats. COMPARISON: 07/31/2018 FINDINGS: Heart is normal in size. No pericardial or pleural effusion. This liver, pancreas, adrenals within normal limits. Status post cholecystectomy. Spleen is not visualized likely surgically absent. No nephrolithiasis or hydronephrosis. No enlarged retroperitoneal or pelvic adenopathy. Mild diffuse atherosclerotic plaque in the abdominal aorta. No free pelvic fluid or ascites. No bowel obstruction. Midline anterior abdominal wall hernia is seen containing transverse colon and loops of small bowel with neck of the hernia approximately measuring 11.2 cm. No pneumoperitoneum. No suspicious bony lesion. Status post hysterectomy. Urinary bladder is within normal limits. IMPRESSION: 1. Stable anterior abdominal wall hernia as described above. No bowel obstruction. Electronically signed by: Gerry Thayer DO (08/03/2018 11:39 PM) [facility]
[2018-08-04 00:02] LABS: % EOS 2 % (0-5); % MONOS 9 % (0-10)
[2018-08-04 00:04] LABS: % LYMPHS 31 % (24-48); % SEGS 58 % (35-66)
[2018-08-04 00:06] LABS: ANISOCYTOSIS SLIGHT; PLT ESTIMATE INCREASED (ADEQUATE); SCHISTOCYTES OCC
[2018-08-04] MEDS ORDERED: MAGNESIUM CITRATE 296 ML SOLUTION. PO ONE (00:15)
[2018-08-04 00:20] VITALS: BP 140/82
== END 2018-08-04 00:20 | disposition home or self-care (01) ==
LOC: ER 19:28
DX: K59.00 Constipation, unspecified (principal); M19.90 Unspecified osteoarthritis, unspecified site; R53.81 Other malaise; Z90.49 Acquired absence of other specified parts of digestive tract; Z90.89 Acquired absence of other organs; Z90.710 Acquired absence of both cervix and uterus; Z88.5 Allergy status to narcotic agent; Z88.8 Allergy status to other drugs, medicaments and biological substances; Z91.018 Allergy to other foods
CPT/HCPCS: 36415; 74022; 74177; 80053; 81001; 83690; 85007; 85025; 96374; 96375; 99285; J2405; J3010; Q9967

== ENCOUNTER → 2019-01-23 | Outpatient (CLI) | payer MEDICARE, OTHER ==
[~2019-01-23] MED LIST changes: +CYAN-25 PO; -CYAN10005 PO; -MONT10TA6 PO; +MONT10TA80 PO; -MONT10TA9 PO; -TIZA4TAB PO; +TIZA4TAB2 PO
--- NOTE | 2019-01-23 14:15 | RAD ---
EXAM: CT RIGHT HIP WITHOUT CONTRAST DATE: 01/23/2019 10:30 AM COMPARISON: CT abdomen and pelvis 08/03/2018 INDICATION: Fall, mass TECHNIQUE: Non-union protocol completed through the affected site without IV contrast. 2-D reformatted sagittal and coronal images were created at the CT console workstation. PQRS compliance statement - One or more of the following individualized dose reduction techniques were utilized for this study: 1. Automated exposure control 2. Adjustment of the mA and/or kV according to patient size 3. Use of iterative reconstruction technique FINDINGS: Within the soft tissues overlying the posterior lateral right hip there is a 3.3 x 2.6 x 4.5 cm well-circumscribed mass. Centrally the attenuation measures approximately 25 Hounsfield units. Moderate associated subcutaneous soft tissue swelling is seen. Muscle bulk is grossly normal. No fatty atrophy. Vascular calcifications are seen. No acute fracture is seen. Borderline lateral patellar tracking. On this marginal evaluation of the visceral pelvis, no pelvic mass, lymphadenopathy or ascites. IMPRESSION: 1. Low attenuating mass overlying the right hip may represent hematoma given history of trauma/fall. Given the proximity to the subjacent fascia, Boykin-Dot lesion would also have similar appearance. Given the density measures greater than fluid, imaging follow-up is recommended to exclude associated solid mass component. Electronically signed by: Romario Tyler MD (01/23/2019 2:12 PM) [facility]
== END | disposition home or self-care (01) ==
LOC: CT 10:01
PROVIDERS: ATTEND Family Medicine
DX: R22.41 Localized swelling, mass and lump, right lower limb (principal); E11.22 Type 2 diabetes mellitus with diabetic chronic kidney disease
CPT/HCPCS: 73700

== ENCOUNTER 2019-02-23 17:16 | Inpatient (IN) | payer MEDICARE, OTHER ==
[~2019-02-23] VITALS: Ht 144.8 cm; Wt 65.5 kg
[~2019-02-23 17:16] MED LIST changes: -BUPR150T20 PO; +BUPR150T27 PO; +ONDA-84 PO; -ONDA4TAB11 PO; -ZONI100C PO; +ZONI100C26 PO
--- NOTE | 2019-02-23 17:59 | PHYS DOC ---
Past History Past Medical History: Depression, High Cholesterol, PR, Other Additional Past Medical Histor: tardive dysk, renal insuff Past Surgical History: Cholecystectomy, Hysterectomy, Other Additional Past Surgical Histo: splenectomy Smoking: Non-smoker Alcohol Use: None Drug Use: None Adult General Chief Complaint Chief Complaint: MECHANICAL FALL [facility] HPI Patient is a 73-year-old female with multiple medical problems coronary artery disease diabetes tardive dyskinesia Hyperlipidemia depression who was brought in by after a fall in the bathroom she said she does not know why she follow falling is a frequent problem for her she was fell backwards no loss of consciousness per the who ran right up and she was wide awake with no seizure activity she did hit her head she takes aspirin only she's been describing 2 days of mid abdominal discomfort she has a history of diverticulitis she was worried about that she also has hernias as well Patient denies fever she has had diarrhea on arrival to the emergency room No chest pain or shortness of breath off the neck feels a little stiff as well Review of Systems Review of Systems Constitutional: Eyes: Denies change in visual acuity, redness, or eye pain [] HENT: Denies nasal congestion or sore throat [] Respiratory: Chronic cough Cardiovascular: No additional information not addressed in HPI [] GI: 2 days of abdominal pain described as a left left wrist pain Integument: Denies rash or skin lesions [] Neurologic: Denies headache, focal weakness or sensory changes [] Endocrine: Denies polyuria or polydipsia [] All other systems were reviewed and found to be within normal limits, except as documented in this note. Current Medications Current Medications Current Medications Medications (Trade) Dose Ordered Sig/Kristin Start Time Stop Time Status Last Admin Dose Admin Sodium Chloride 1,000 ml @ 1,000 mls/hr 1X ONCE 02/23/19 18:00 02/23/19 18:59 Allergies Allergies Allergies Coded Allergies Type Severity Reaction Last Updated Verified grapefruit Allergy Intermediate 12/19/14 Yes hydromorphone Allergy Intermediate 12/19/14 Yes metoclopramide Allergy Intermediate 09/03/14 Yes morphine Allergy Intermediate 09/03/14 Yes phenytoin Allergy Intermediate 09/03/14 Yes ropinirole Allergy Intermediate 04/23/18 Yes trazodone Allergy Intermediate 09/03/14 Yes zolpidem Allergy Intermediate 03/24/17 Yes Physical Exam Physical Exam Constitutional: Well developed, well nourished, no acute distress, non-toxic appearance. [] HENT: Normocephalic, contusion noted to the occiput, bilateral external ears normal, oropharynx moist, no oral exudates, nose normal. [] Eyes: PERRLA, EOMI, conjunctiva normal, no discharge. [] Neck: Normal range of motion mostly paraspinous tenderness on the left Cardiovascular:Heart rate regular rhythm, no murmur [] Lungs & Thorax: Bilateral breath sounds clear to auscultation [] Abdomen: Bowel sounds normal, soft, there is left lower quadrant tenderness which is mild and there is also easily reducible ventral hernia without tenderness, no masses, no pulsatile masses. [] Skin: Warm, dry, no erythema, no rash. [] Back: No tenderness, no CVA tenderness. [] Extremities: Tenderness to palpation the left snuffbox area range of motion of the wrist is intact however Neurologic: Alert and oriented X 3, normal motor function, normal sensory function, no focal deficits noted. [] Psychologic: Affect normal, judgement normal, mood normal. [] Current Patient Data Vital Signs Vital Signs Date Time Temp Pulse Resp B/P (MAP) Pulse Ox O2 Delivery O2 Flow Rate FiO2 02/23/19 17:43 98 18 99 Room Air EKG EKG []nsr normal rate twi high lateral overall the ekg is improved compared to 04/20/18 Radiology/Procedures Radiology/Procedures []IMPRESSION: 1. Two ventral abdominal wall hernias containing fat and loops of small bowel and transverse colon status post ventral abdominal wall hernia repair. There is no evidence of incarceration or mechanical obstruction. These are similar compared to the prior exam. 2. Nonspecific fluid-filled colon. This can be seen with diarrhea. There is no convincing colitis or diverticulitis. 3. Pancreatic parenchymal calcifications likely due to the sequela of chronic hepatitis. There is no acute pancreatitis. Electronically signed by: Kaleigh Pfeiffer MD (02/23/2019 7:14 PM) [facility] dislocation or subluxation. IMPRESSION: No acute osseous finding. Electronically signed by: Kaleigh Pfeiffer MD (02/23/2019 7:07 PM) [facility] DICTATED AND SIGNED BY: KALEIGH PFEIFFER MD DATE: 02/23/191906 CC: JAYMIE GE MD; BALTAZAR TERRY MD ~ FINDINGS: A frontal view of the chest obtained. There is no infiltrate, pleural effusion or pneumothorax. There is a stable prominent cardiac silhouette. There are dorsal column stimulator leads overlying the mid thoracic spine. There is a chronic fracture deformity of the proximal right humerus. IMPRESSION: No acute pulmonary finding. Electronically signed by: Kaleigh Pfeiffer MD (02/23/2019 7:07 PM) [place] [id number] DICTATED AND SIGNED BY: KALEIGH PFEIFFER MD DATE: 02/23/191906 Impressions: IMPRESSION: 1. No acute intracranial finding or evidence of acute cervical spine trauma. 2. Cerebral atrophy. 3. Multilevel degenerative change within the cervical spine, described in detail above. 4. Heterogeneous bone density due to demineralization and superimposed hemangiomas. This limits evaluation for small lytic lesions. Electronically signed by: Kaleigh Pfeiffer MD (02/23/2019 7:06 PM) [facility] Course & Med Decision Making Course & Med Decision Making Pertinent Labs and Imaging studies reviewed. (See chart for details) []73-year-old female multiple issues diabetes coronary disease depression tardive dyskinesia presenting after a fall frequent falls noted at baseline head trauma noted also complained of 2 days of abdominal discomfort with some diarrhea on arrival to the emergency room plan to rule out diverticulitis check urinalysis checked low blood work the blood pressure was in the 90s systolic with that she has a history also of orthostatic hypotension so we will give IV fluid bolus and monitor her closely. Chest x-ray also there were some snuffbox tenderness check that as well White count is actually somewhat better than previous. Waiting on the urinalysis I did give a bolus of ceftriaxone in the emergency room given the lactic acid pending completion of the ER workup Blood pressure was somewhat labile in the emergency room patient tells me this is a chronic problem for her she suffers from orthostatic hypotension. When I was in the room the blood pressure was in the mid 80s and then we laid her flat in Trendelenburg and a 1 up to 98 systolic we also had a reading of 113 systolic. We are giving IV fluid bolus at this time Urinalysis is pending otherwise no obvious source of bacterial infection CT scan did show fluid-filled loops of bowel and she is having diarrhea in the emergency room so we have ordered a C. difficile we are waiting on that I spoke with Dr. Hong plan to admit for the above hydration and observation repeat lactic etc. In addition the patient did have some snuffbox tenderness with a negative x-rays we put the patient in a Velcro wrist splint that I advise repeat x-rays in a week for persistent symptoms Dragon Disclaimer Dragon Disclaimer This electronic medical record was generated, in whole or in part, using a voice recognition dictation system. Departure Departure: Impression: Primary Impression: Dehydration Additional Impressions: Lactic acidosis Orthostatic hypotension Disposition: ADMITTED INPATIENT Admitting Physician: Jaymie Ge Condition: STABLE Referrals: JAYMIE GE MD (PCP) Problem Qualifiers BALTAZAR TERRY MD Feb 23, 2019 17:59
[2019-02-23] MEDS ORDERED: IV NORMAL SALINE 1,000ML 1,000 ML IV ONE (18:00)
[2019-02-23 18:34] LABS: BASO # 0.1 x10^3/uL (0.0-0.2); BASO % 1 % (0-3); EOS # 0.3 x10^3/uL (0.0-0.7); EOS % 2 % (0-3); HEMATOCRIT 34.3 % (36.0-47.0); HEMOGLOBIN 10.5 g/dL (12.0-15.5); LYMPH % 22 % (24-48); MEAN CORPUSCULAR HEMOGLOBIN 28 pg (25-35); MEAN CORPUSCULAR HGB CONC 31 g/dL (31-37); MEAN CORPUSCULAR VOLUME 92 fL (79-100); MONO # 0.8 x10^3/uL (0.0-1.1); MONO % 6 % (0-9); NEUT # 9.2 x10^3uL (1.8-7.7); NEUT % 69 % (31-73); PLATELET COUNT 471 x10^3/uL (140-400); RED BLOOD COUNT 3.71 x10^6/uL (3.50-5.40); RED CELL DISTRIBUTION WIDTH 17.6 % (11.5-14.5); WHITE BLOOD COUNT 13.4 x10^3/uL (4.0-11.0)
[2019-02-23 18:48] LABS: ALBUMIN 3.4 g/dL (3.4-5.0); ALBUMIN/GLOBULIN RATIO 0.8 (1.0-1.7); CALCIUM 9.1 mg/dL (8.5-10.1); CREATININE 1.7 mg/dL (0.6-1.0); GFR 29.5; TOTAL BILIRUBIN 0.1 mg/dL (0.2-1.0); TOTAL PROTEIN 7.8 g/dL (6.4-8.2)
--- NOTE | 2019-02-23 19:09 | RAD ---
EXAM: Head and cervical spine CT without contrast. HISTORY: Syncope. TECHNIQUE: Computed tomographic images of the head and cervical spine were obtained without contrast. *One or more of the following individualized dose reduction techniques were utilized for this examination: 1. Automated exposure control. 2. Adjustment of the mA and/or kV according to patient size. 3. Use of iterative reconstruction technique. COMPARISON: 04/20/2018. FINDINGS: Head: There is no hemorrhage. There is no mass effect or midline shift. There is no hydrocephalus. There is cerebral volume loss. The goodrich-white matter differentiation pattern is intact. The orbits, paranasal sinuses mastoid air cells are unremarkable. The temporomandibular joints are intact. No suspicious calvarial lesion is seen. Cervical spine: There is cervical kyphosis. There is mild anterolisthesis of C3 on C4, likely positional or degenerative. There is severe degenerative endplate remodeling with osteophytosis and Schmorl's node formation at C4 through the upper thoracic levels. There is bone demineralization and there are multiple osseous hemangiomas. This limits evaluation for lytic lesions. At C2-C3, there is moderate bilateral facet arthropathy. There is no stenosis. At C3-C4, there is a disc bulge and endplate remodeling. There is mild right and severe left facet arthropathy. There is mild right and moderate left foraminal stenosis. At C4-C5, there is a disc bulge and endplate ossified ptosis. There is moderate right and mild left facet arthropathy. There is bilateral uncovertebral arthropathy. There is severe bilateral foraminal stenosis. At C5-C6, there is a disc bulge and endplate osteophytosis. There is bilateral uncovertebral arthropathy. There is mild bilateral foraminal stenosis. There is mild central canal stenosis. At C6-C7, there is a disc bulge and endplate osteophytosis. There is bilateral uncovertebral arthropathy. There is mild central canal stenosis. At C7-T1, there is a disc bulge and endplate osteophytosis. There is left uncovertebral therapy. There is mild left foraminal stenosis. IMPRESSION: 1. No acute intracranial finding or evidence of acute cervical spine trauma. 2. Cerebral atrophy. 3. Multilevel degenerative change within the cervical spine, described in detail above. 4. Heterogeneous bone density due to demineralization and superimposed hemangiomas. This limits evaluation for small lytic lesions. Electronically signed by: Kaleigh Shanks MD (02/23/2019 7:06 PM) [facility]
--- NOTE | 2019-02-23 19:10 | RAD ---
EXAM: Chest, single view. HISTORY: Weakness. COMPARISON: 08/03/2018 FINDINGS: A frontal view of the chest obtained. There is no infiltrate, pleural effusion or pneumothorax. There is a stable prominent cardiac silhouette. There are dorsal column stimulator leads overlying the mid thoracic spine. There is a chronic fracture deformity of the proximal right humerus. IMPRESSION: No acute pulmonary finding. Electronically signed by: Kaleigh Shanks MD (02/23/2019 7:07 PM) [facility]
--- NOTE | 2019-02-23 19:10 | RAD ---
EXAM: Left wrist, 3 views. HISTORY: Trauma. Fall. COMPARISON: None. FINDINGS: 3 views of the left wrist are obtained. There is no fracture, dislocation or subluxation. IMPRESSION: No acute osseous finding. Electronically signed by: Kaleigh Shanks MD (02/23/2019 7:07 PM) [facility]
[2019-02-23] MEDS: IV NORMAL SALINE 1,000ML 1,000 ML IV SCH ×4 (19:15→22:59)
--- NOTE | 2019-02-23 19:17 | RAD ---
EXAM: Abdomen and pelvis CT without intravenous contrast. HISTORY: Pain. Syncope. TECHNIQUE: Computed tomographic images of the abdomen and pelvis were obtained without contrast. Multiplanar reformatting was performed. *One or more of the following individualized dose reduction techniques were utilized for this examination: 1. Automated exposure control. 2. Adjustment of the mA and/or kV according to patient size. 3. Use of iterative reconstruction technique. COMPARISON: 08/03/2018. FINDINGS: Evaluation of the lower thorax demonstrates posterior dependent and basilar atelectasis. There is cardiomegaly. There is coronary artery atherosclerosis. No hepatic lesion is seen. The gallbladder is surgically absent. There are few pancreatic parenchymal calcifications likely due to the sequela of chronic pancreatitis. There is no convincing acute pancreatitis. The spleen is absent. The adrenal glands are unremarkable. There is renal cortical lobulation likely due to scarring. There is no hydronephrosis. Evaluation for small renal lesions is limited in the absence of contrast. The appendix appears absent. There is nonspecific fluid-filled colon, a finding which can be seen with diarrhea. There is no evidence of colitis. No bowel obstruction is seen. There are ventral abdominal wall hernias containing fat and loops of small bowel and transverse colon. This includes a hernia sac to the left of midline measuring approximately 8 cm in maximum dimension and the hernia sac to the right of midline measuring approximately 4 cm in maximum dimension. There is evidence of prior ventral abdominal wall hernia repair. There is a generator within the right buttock with lead extending to terminate within the lower thoracic spinal canal. The uterus is surgically absent. The urinary bladder is unremarkable. There is aortic and aortic branch vessel atherosclerosis. There are few nonspecific lymph nodes. No suspicious lymphadenopathy is seen. There are degenerative changes involving the spine. There are few osseous hemangiomas, the largest of which is seen within L2. There is stranding and gas within the right ventral abdominal wall fat due to medication injection sites. IMPRESSION: 1. Two ventral abdominal wall hernias containing fat and loops of small bowel and transverse colon status post ventral abdominal wall hernia repair. There is no evidence of incarceration or mechanical obstruction. These are similar compared to the prior exam. 2. Nonspecific fluid-filled colon. This can be seen with diarrhea. There is no convincing colitis or diverticulitis. 3. Pancreatic parenchymal calcifications likely due to the sequela of chronic hepatitis. There is no acute pancreatitis. Electronically signed by: Kaleigh Shanks MD (02/23/2019 7:14 PM) [facility]
[2019-02-23] MEDS ORDERED: IV NORMAL SALINE 100ML 100 ML ONE ×2 (21:00)
[2019-02-23 22:33] LABS: BACTERIA,URINE MANY /HPF (0-FEW); BILIRUBIN,URINE NEG (NEG); CLARITY,URINE CLEAR; COLOR,URINE YELLOW; GLUCOSE,URINE 500 mg/dL (NEG); NITRITE,URINE POS (NEG); SQUAMOUS EPITHELIAL CELL,UR OCC /LPF; UROBILINOGEN,URINE 0.2 mg/dL (0.2 mg/dL)
[2019-02-23 23:07] VITALS: BP 123/73
--- NOTE | 2019-02-23 23:42 | NUR ---
The patient, PAMELA CAIN, 73 y/o, F admitted by JAYMIE GE MD, was given written information regarding hospital policies, unit procedures and contact persons. Patient did not bring her home medication list and states she does not remember all of her meds and that her will bring the list in the morning. Patient does know her home insulin regimen and states she would like her insulin tonight. Valuables were checked and left with patient.
[2019-02-24] MEDS ORDERED: NAPR-514 PO (01:05)
[2019-02-24] MEDS ORDERED: METF500T11 PO (01:05)
[2019-02-24] MEDS ORDERED: OMEG-33 PO (01:05)
[2019-02-24] MEDS ORDERED: CARV6.2541 PO (01:05)
[2019-02-24] MEDS ORDERED: CETI10TA16 PO (01:05)
[2019-02-24] MEDS ORDERED: RANI150T2 PO (01:05)
[2019-02-24] MEDS ORDERED: BUSP15TA PO (01:05)
[2019-02-24] MEDS ORDERED: ARIP2TAB35 PO (01:05)
[2019-02-24] MEDS ORDERED: FURO20TA3 PO (01:05)
[2019-02-24] MEDS ORDERED: ATORVASTATIN CA80 MG PO (01:05)
[2019-02-24] MEDS ORDERED: DULO60CA98 PO (01:05)
[2019-02-24] MEDS ORDERED: SPIR25TA5 PO (01:05)
[2019-02-24] MEDS: ASA/APAP/CAFFEINE 250/250/65MG TABLET. PO PRN ×3 (02:10→19:40)
[2019-02-24 05:20] VITALS: BP 120/73
[2019-02-24] MEDS ORDERED: LOPERAMIDE 2 MG CAPSULE PO PRN (08:45)
[2019-02-24] MEDS ORDERED: FUROSEMIDE 20 MG TABLET PO PRN (08:45)
[2019-02-24] MEDS ORDERED: IPRATRPIUM/ALBUTEROL 0.5/2.5MG 3 ML NEBU. NEB SCH (09:00)
[2019-02-24] MEDS: FLUTICASONE 50MCG/NASAL SPRAY 16GM BOTTLE. NS SCH (10:00)
[2019-02-24] MEDS: INSULIN GLARGINE SYRINGE. SQ SCH ×2 (10:00→20:56)
[2019-02-24] MEDS: buPROPion SR 150 MG TABLET.SA PO SCH ×2 (10:10→20:51)
[2019-02-24] MEDS: busPIRone 15 MG TABLET. PO SCH ×2 (10:10→20:52)
[2019-02-24] MEDS: CYANOCOBALAMIN (VITAMIN B-12) 1,000 MCG TABLET. PO SCH (10:11)
[2019-02-24] MEDS: ATORVASTATIN CALCIUM 20 MG TABLET PO SCH (10:11)
[2019-02-24] MEDS: NAPROXEN 500 MG TABLET PO SCH ×2 (10:11→20:52)
[2019-02-24] MEDS: MULTIVITAMIN with MINERAL TABLET. PO SCH (10:12)
[2019-02-24] MEDS: ASPIRIN 81 MG TAB.CHEW PO SCH (10:12)
[2019-02-24] MEDS: METOPROLOL SUCC 24HR ER 25 MG TAB.ER.24H. PO SCH (10:12)
[2019-02-24] MEDS: SPIRONOLACTONE 25 MG TABLET PO SCH (10:12)
[2019-02-24] MEDS: LISINOPRIL 5 MG TABLET. PO SCH (10:13)
[2019-02-24] MEDS: MONTELUKAST 10 MG TABLET. PO SCH (10:13)
[2019-02-24] MEDS: FAMOTIDINE 20 MG TABLET PO SCH (10:13)
[2019-02-24] MEDS: CHOLECALCIFEROL (VITAMIN D3) 1,000 UNIT TABLET PO SCH (10:13)
[2019-02-24] MEDS: CETIRIZINE HCL 10 MG TABLET PO SCH (10:14)
[2019-02-24] MEDS: PANTOPRAZOLE 40 MG TABLET. PO SCH (10:14)
[2019-02-24] MEDS: amLODIPine BESYLATE 5 MG TABLET PO SCH (10:14)
[2019-02-24] MEDS: ASCORBIC ACID 500 MG TABLET PO SCH ×2 (10:14→20:52)
[2019-02-24] MEDS: DULoxetine HCL 60 MG CAPSULE.DR PO SCH ×2 (10:26→20:51)
[2019-02-24] MEDS: DICLOFENAC SODIUM 1% TOPICAL GEL 100GM TUBE. TP SCH ×4 (10:27→20:55)
[2019-02-24] MEDS: ZONISAMIDE 100 MG CAPSULE. PO SCH ×3 (10:27→20:54)
[2019-02-24] MEDS: ARIPiprazole 2 MG TABLET PO SCH (10:27)
[2019-02-24] MEDS: INSULIN LISPRO 300 UNITS/3 ML VIAL. SQ SCH ×2 (11:30→16:30)
[2019-02-24 11:41] VITALS: BP 122/73
[2019-02-24] MEDS: metFORMIN XR 500 MG TAB.ER.24H PO SCH (12:44)
[2019-02-24] MEDS: IV NORMAL SALINE 1,000ML 1,000 ML IV SCH (12:48)
[2019-02-24] MEDS: SIMETHICONE 80 MG TAB.CHEW PO PRN (14:01)
[2019-02-24] MEDS ORDERED: IPRATRPIUM/ALBUTEROL 0.5/2.5MG 3 ML NEBU. NEB PRN (15:30)
[2019-02-24 15:41] VITALS: BP 117/69
[2019-02-24] MEDS: OMEGA-3 FATTY ACIDS/FISH OIL 1,000 MG CAPSULE. PO SCH ×2 (15:48→20:51)
[2019-02-24] MEDS: CARVEDILOL 6.25 MG TABLET PO SCH (17:39)
--- NOTE | 2019-02-24 18:27 | HP ---
ADMIT DATE: 02/23/2019 HISTORY OF PRESENT ILLNESS: A 73-year-old female came in through the Emergency Room. Apparently, she slipped and fell at home. She has a long history of multiple medical problems. She fell in the bathroom, fell backwards, hit her head and she claims she lost consciousness, although the ER says negative. There was no seizure activity, but the patient says she did go blank. She has also been having severe diarrhea of late with dehydration. The patient was admitted for orthostatic hypotension, syncope, mild concussion and the like to make further evaluation with rehydration. PAST MEDICAL HISTORY: Tonsillectomy, headaches, heart attack, coronary artery disease, coronary stent, October 2017, hypercholesterolemia, respiratory disease, pneumonias, sleep apnea, diverticulosis, abdominal surgery, obesity, gastroesophageal reflux, hysterectomy, renal disease, spine stimulator placement, diabetes, psychiatric problems of depression, anxiety, previous suicide attempt 25 years ago. Medical symptoms of tardive dyskinesia, splenectomy. Influenza vaccination, pneumococcal all up-to-date. Surgeries, splenectomy. FAMILY HISTORY: He had a brother with stomach cancer and polio. Father with depression and cardiovascular disease, hypertension. Sister with type 2 diabetes, mother with diabetes and cholecystectomy. ALLERGIES: GRAPEFRUIT, HYDROMORPHONE, METOCLOPRAMIDE, MORPHINE, DILANTIN, ROBINUL, TRAZODONE AND AMBIEN. SOCIAL HISTORY: The patient denies smoking, alcohol or drug use. Is a FULL CODE. HOME MEDICATIONS: Listed as Zyrtec 10, DuoNeb treatments, Lipitor 80, omega 3, carvedilol 6.25 b.i.d., Norvasc 5, aspirin, naproxen 500 b.i.d., diclofenac gel to affected joint, clonazepam 0.5, carbamazepine 100 mg t.i.d., Wellbutrin 150 mg, duloxetine 60 mg b.i.d., Remeron 2 tablets at bedtime, nortriptyline 2 capsules at bedtime 50 mg, buspirone p.r.n., furosemide 20 mg a day, Singulair, Flonase nasal spray, loperamide, Zantac, insulin and like and some vitamin pills. REVIEW OF SYSTEMS: The patient notes a headache bump on the back of her head, feeling lightheaded, having dizzy spells. The patient denies chest pain, shortness of breath. Denies abdominal pain. Denies any melena, hematochezia, hematemesis and neurologically baseline except for her diarrhea, giving her abdominal pain. PHYSICAL EXAMINATION: GENERAL: This is a pleasant white female complaining of pain. VITAL SIGNS: Blood pressure 97/39 dropped when standing to 82/41, respiratory rate 18, pulse in the upper 90s, afebrile. HEENT: The patient's head was atraumatic, normocephalic. Eyes: PERRLA without jaundice. The mouth and throat were normal. NECK: Supple, no JVD or thyromegaly. LUNGS: Diminished throughout, poor movement of air. CARDIOVASCULAR: Regular sinus rhythm. ABDOMEN: Soft, nontender. EXTREMITIES: No clubbing, cyanosis, nor edema. NEUROLOGIC: The patient was alert and oriented x 3. There was some swelling to the back of her head there. LABORATORY DATA: White count was 13,000, no left shift. Chemistries showed elevated blood sugar, consistent with her diabetes and a BUN and creatinine 27 and 1.7, lactic acid 3.7, but no obvious signs of infection outside of some 5-10 white blood cells, but since she is having loose stools and possibility of C. diff, she only gave one dose of Rocephin. We will wait for cultures to be more specific on that. IMPRESSION: Orthostatic hypotension, fall at home in the bathroom, concussion to the head, anemia of chronic disease, type 2 diabetes, poorly controlled, elevated lactic acid, chronic kidney disease stage 3, leukorrhea. Patient had multiple scans performed including abdominal CT, CT of the head. Basically outside of some ventral abdominal wall hernias, there was a fluid filled colon consistent with diarrhea. The CT scan of the head was unremarkable as well as her cervical spine, cerebral atrophy, multiple degenerative changes. JAYMIE GE MD DR: MAURIZIO/luis angel JOB#: [id number] / [id number]
[2019-02-24 19:22] VITALS: BP 117/51
[2019-02-24] MEDS: MIRTAZAPINE 30 MG TABLET PO SCH (20:52)
[2019-02-24] MEDS: carBAMazepine 200 MG TABLET PO SCH (20:52)
[2019-02-24] MEDS: NORTRIPTYLINE 25 MG CAPSULE PO SCH (20:53)
[2019-02-24] MEDS: rOPINIRole 1 MG TABLET. PO SCH (20:54)
--- NOTE | 2019-02-24 22:06 | NUR ---
Medical records show an allergy to ropinirole. Patient states she is not allergic and that she takes this medication daily. Allergy deleted from [facility].
[2019-02-24 22:30] VITALS: BP 139/83
[2019-02-25] MEDS: ASA/APAP/CAFFEINE 250/250/65MG TABLET. PO PRN ×2 (01:32→19:30)
--- NOTE | 2019-02-25 01:58 | EKG ---
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
[2019-02-25] MEDS: NAPROXEN 500 MG TABLET PO SCH ×2 (05:04→21:38)
[2019-02-25 05:17] VITALS: BP 160/78
[2019-02-25] MEDS: SIMETHICONE 80 MG TAB.CHEW PO PRN (06:21)
[2019-02-25 06:42] LABS: BASO # 0.1 x10^3/uL (0.0-0.2); BASO % 1 % (0-3); EOS # 0.6 x10^3/uL (0.0-0.7); EOS % 5 % (0-3); HEMATOCRIT 29.7 % (36.0-47.0); HEMOGLOBIN 9.4 g/dL (12.0-15.5); LYMPH # 4.5 x10^3/uL (1.0-4.8); LYMPH % 40 % (24-48); MEAN CORPUSCULAR HEMOGLOBIN 29 pg (25-35); MEAN CORPUSCULAR HGB CONC 32 g/dL (31-37); MEAN CORPUSCULAR VOLUME 91 fL (79-100); MONO # 1.1 x10^3/uL (0.0-1.1); MONO % 10 % (0-9); NEUT # 4.9 x10^3uL (1.8-7.7); NEUT % 44 % (31-73); PLATELET COUNT 454 x10^3/uL (140-400); RED BLOOD COUNT 3.28 x10^6/uL (3.50-5.40); RED CELL DISTRIBUTION WIDTH 17.5 % (11.5-14.5); WHITE BLOOD COUNT 11.3 x10^3/uL (4.0-11.0)
[2019-02-25 06:48] LABS: CALCIUM 8.7 mg/dL (8.5-10.1); GFR 54.3; POTASSIUM 4.6 mmol/L (3.5-5.1)
[2019-02-25] MEDS: INSULIN LISPRO 300 UNITS/3 ML VIAL. SQ SCH ×3 (07:30→16:39)
[2019-02-25] MEDS: PANTOPRAZOLE 40 MG TABLET. PO SCH (07:42)
[2019-02-25] MEDS: ATORVASTATIN CALCIUM 20 MG TABLET PO SCH (07:42)
[2019-02-25] MEDS: metFORMIN XR 500 MG TAB.ER.24H PO SCH (07:42)
[2019-02-25] MEDS: OMEGA-3 FATTY ACIDS/FISH OIL 1,000 MG CAPSULE. PO SCH ×3 (07:42→21:38)
[2019-02-25] MEDS: buPROPion SR 150 MG TABLET.SA PO SCH ×2 (07:42→21:38)
[2019-02-25] MEDS: LISINOPRIL 5 MG TABLET. PO SCH (07:43)
[2019-02-25] MEDS: amLODIPine BESYLATE 5 MG TABLET PO SCH (07:43)
[2019-02-25] MEDS: ASPIRIN 81 MG TAB.CHEW PO SCH (07:43)
[2019-02-25] MEDS: CHOLECALCIFEROL (VITAMIN D3) 1,000 UNIT TABLET PO SCH (07:43)
[2019-02-25] MEDS: METOPROLOL SUCC 24HR ER 25 MG TAB.ER.24H. PO SCH (07:44)
[2019-02-25] MEDS: CARVEDILOL 6.25 MG TABLET PO SCH (07:44)
[2019-02-25] MEDS: busPIRone 15 MG TABLET. PO SCH ×2 (07:44→21:37)
[2019-02-25] MEDS: FAMOTIDINE 20 MG TABLET PO SCH (07:44)
[2019-02-25] MEDS: CETIRIZINE HCL 10 MG TABLET PO SCH (07:45)
[2019-02-25] MEDS: MULTIVITAMIN with MINERAL TABLET. PO SCH (07:45)
[2019-02-25] MEDS: SPIRONOLACTONE 25 MG TABLET PO SCH (07:45)
[2019-02-25] MEDS: MONTELUKAST 10 MG TABLET. PO SCH (07:45)
[2019-02-25] MEDS: CYANOCOBALAMIN (VITAMIN B-12) 1,000 MCG TABLET. PO SCH (07:45)
[2019-02-25] MEDS: DULoxetine HCL 60 MG CAPSULE.DR PO SCH ×2 (07:45→21:39)
[2019-02-25] MEDS: ASCORBIC ACID 500 MG TABLET PO SCH (07:45)
[2019-02-25] MEDS: ARIPiprazole 2 MG TABLET PO SCH (07:45)
[2019-02-25] MEDS: ZONISAMIDE 100 MG CAPSULE. PO SCH ×3 (07:46→21:39)
[2019-02-25] MEDS: FLUTICASONE 50MCG/NASAL SPRAY 16GM BOTTLE. NS SCH (07:46)
[2019-02-25] MEDS: INSULIN GLARGINE SYRINGE. SQ SCH ×2 (07:46→21:42)
[2019-02-25] MEDS: DICLOFENAC SODIUM 1% TOPICAL GEL 100GM TUBE. TP SCH ×4 (07:47→21:44)
[2019-02-25] MEDS: clonazePAM 0.5 MG TABLET PO PRN (07:52)
[2019-02-25] MEDS ORDERED: CYCLOBENZAPRINE 10 MG TABLET. PO PRN (09:00)
[2019-02-25] MEDS ORDERED: CARVEDILOL 6.25 MG TABLET PO ONE (09:30)
[2019-02-25] MEDS: CYCLOBENZAPRINE 10 MG TABLET. PO PRN ×2 (09:50→21:49)
[2019-02-25] MEDS ORDERED: SIMETHICONE 80 MG TAB.CHEW PO PRN (10:00)
[2019-02-25 10:15] VITALS: BP 152/77
[2019-02-25] MEDS: SIMETHICONE 80 MG TAB.CHEW PO SCH ×2 (11:57→21:38)
[2019-02-25] MEDS: LIPASE/PROTEAS/AMYLAS 10/32/42 CAPSULE.DR. PO SCH ×2 (12:01→16:21)
[2019-02-25 14:31] VITALS: BP 136/78
[2019-02-25] MEDS: CARVEDILOL 12.5 MG TABLET PO SCH (16:21)
[2019-02-25 20:00] VITALS: BP 120/70
--- NOTE | 2019-02-25 21:01 | NUR ---
PT reported onset of migraine at beginning of shift, given medication. PT pleasant, calm and cooperative with cares.
[2019-02-25] MEDS: carBAMazepine 200 MG TABLET PO SCH (21:37)
[2019-02-25] MEDS: rOPINIRole 1 MG TABLET. PO SCH (21:39)
[2019-02-25] MEDS: MIRTAZAPINE 30 MG TABLET PO SCH (21:39)
[2019-02-25] MEDS: NORTRIPTYLINE 25 MG CAPSULE PO SCH (21:40)
[2019-02-25] MEDS: traMADol 50 MG TABLET PO PRN (23:16)
[2019-02-25 23:26] VITALS: BP 125/70
--- NOTE | 2019-02-26 02:19 | PN ---
DATE: 02/25/2019 SUBJECTIVE: The patient came in, apparently fell in her kitchen and hit the back of her head, had a mild concussion. The patient seems to be adjusting accordingly and is making fairly good progress overall. Ejection fraction 55%-60%. The patient receiving physical and occupational therapy, blood pressure elevated 166/86, respiratory rate 20, pulse 72, afebrile. The patient is alert and oriented, still a lump on the back of her head, is getting smaller. We will continue with PT, OT and make further evaluation on her as indicated. OBJECTIVE LUNGS: Diminished. CARDIOVASCULAR: Stable. ABDOMEN: Soft, nontender. NEUROLOGIC: The patient is alert and oriented x 3. LABORATORY DATA: The patient's white count 11.3, hemoglobin down to 9.4 and 29. The patient's blood sugar slightly elevated in the 140s-170s. The patient's UA is still pending and no signs of urinary tract infection. She still continued to have some form of diarrhea and we will continue to monitor her accordingly on that. As the C. difficile has not been returned yet and we will continue to monitor her on that. Adjust her diet accordingly. IMPRESSION: Orthostatic hypotension; concussion; anemia of chronic disease; type 2 diabetes, poorly controlled; chronic kidney disease stage 3; leukorrhea; ventral wall hernias. PLAN: Continue to monitor the patient and accordingly make further evaluation on her as indicated. PT, OT. JAYMIE GE MD DR: MAURIZIO/luis angel JOB#: [id number] / [id number]
[2019-02-26 06:18] VITALS: BP 107/69
[2019-02-26] MEDS: INSULIN LISPRO 300 UNITS/3 ML VIAL. SQ SCH (07:30)
[2019-02-26] MEDS: PANTOPRAZOLE 40 MG TABLET. PO SCH (07:45)
[2019-02-26] MEDS: LIPASE/PROTEAS/AMYLAS 10/32/42 CAPSULE.DR. PO SCH (07:45)
[2019-02-26] MEDS: clonazePAM 0.5 MG TABLET PO PRN (07:46)
[2019-02-26] MEDS: ASPIRIN 81 MG TAB.CHEW PO SCH (07:46)
[2019-02-26] MEDS: ZONISAMIDE 100 MG CAPSULE. PO SCH (07:46)
[2019-02-26] MEDS: busPIRone 15 MG TABLET. PO SCH (07:46)
[2019-02-26] MEDS: NAPROXEN 500 MG TABLET PO SCH (07:46)
[2019-02-26] MEDS: ATORVASTATIN CALCIUM 20 MG TABLET PO SCH (07:46)
[2019-02-26] MEDS: MULTIVITAMIN with MINERAL TABLET. PO SCH (07:46)
[2019-02-26] MEDS: OMEGA-3 FATTY ACIDS/FISH OIL 1,000 MG CAPSULE. PO SCH (07:47)
[2019-02-26] MEDS: CHOLECALCIFEROL (VITAMIN D3) 1,000 UNIT TABLET PO SCH (07:47)
[2019-02-26] MEDS: SPIRONOLACTONE 25 MG TABLET PO SCH (07:47)
[2019-02-26] MEDS: CYANOCOBALAMIN (VITAMIN B-12) 1,000 MCG TABLET. PO SCH (07:47)
[2019-02-26] MEDS: amLODIPine BESYLATE 5 MG TABLET PO SCH (07:47)
[2019-02-26] MEDS: buPROPion SR 150 MG TABLET.SA PO SCH (07:47)
[2019-02-26] MEDS: LISINOPRIL 5 MG TABLET. PO SCH (07:47)
[2019-02-26] MEDS: MONTELUKAST 10 MG TABLET. PO SCH (07:47)
[2019-02-26] MEDS: FAMOTIDINE 20 MG TABLET PO SCH (07:48)
[2019-02-26] MEDS: INSULIN GLARGINE SYRINGE. SQ SCH (07:48)
[2019-02-26] MEDS: DULoxetine HCL 60 MG CAPSULE.DR PO SCH (07:48)
[2019-02-26] MEDS: CETIRIZINE HCL 10 MG TABLET PO SCH (07:48)
[2019-02-26] MEDS: SIMETHICONE 80 MG TAB.CHEW PO SCH (07:48)
[2019-02-26] MEDS: CARVEDILOL 12.5 MG TABLET PO SCH (07:49)
[2019-02-26] MEDS: FLUTICASONE 50MCG/NASAL SPRAY 16GM BOTTLE. NS SCH (07:52)
[2019-02-26 07:53] VITALS: BP 107/69
[2019-02-26] MEDS: METOPROLOL SUCC 24HR ER 25 MG TAB.ER.24H. PO SCH (07:53)
[2019-02-26] MEDS: DICLOFENAC SODIUM 1% TOPICAL GEL 100GM TUBE. TP SCH (07:53)
[2019-02-26] MEDS: ARIPiprazole 2 MG TABLET PO SCH (07:53)
[2019-02-26] MEDS: traMADol 50 MG TABLET PO PRN (08:55)
[2019-02-26] MEDS ORDERED: CARV12.547 PO (09:47)
[2019-02-26] MEDS ORDERED: LIPA1CAP12 PO (09:47)
[2019-02-26] MEDS: CYCLOBENZAPRINE 10 MG TABLET. PO PRN (10:06)
--- NOTE | 2019-02-26 10:07 | NUR ---
Discharge Note: ERIN CAIN [facility] Discharge instructions and discharge home medications reviewed with Patient and a copy given. All questions have been answered and understanding verbalized. The following instructions and handouts were given: FALLS, FLEXERIL Discontinued lines and drains: IV D/C, TIP IN TACT. Patient discharged to home with family present at bedside at the time of discharge.
--- NOTE | 2019-03-20 21:30 | DS ---
DATE OF DISCHARGE: 02/26/2019 HOSPITAL COURSE: A 73-year-old female came in through the emergency room. Apparently slipped and fell at home, long history of multiple medical problems, fell backwards and hit her head. As a result of this, the patient was seen in the emergency room and was noted to also have severe diarrhea, dehydration. She was noted to have orthostatic hypotension. She also had chronic problems of anemia; type 2 diabetes, poorly controlled; elevated lactic acid, but it is, we believe, from her dehydration. Blood sugars were brought under control. Her urine was unremarkable. The patient had elevated white count of 11,000. The patient made good progress, received PT, OT. The patient was rehydrated. Home health to follow her as an outpatient. IMPRESSION: Multiple falls at home, mild concussion, anemia of chronic disease, type 2 diabetes, morbid obesity, chronic kidney disease stage 3, leukorrhea, ventral wall hernias. PLAN: The patient will be discharged home, followed up as an outpatient, make further evaluation on her as indicated as an outpatient. JAYMIE GE MD DR: MAURIZIO/luis angel JOB#: [id number] / [id number]
== END 2019-02-26 10:09 | disposition home or self-care (01) | DRG 391 ==
LOC: ER 17:16 → 1 SOUTH 20:09
PROVIDERS: ADMIT Family Medicine; ATTEND Family Medicine
DX: A09 Infectious gastroenteritis and colitis, unspecified (principal); N17.0 Acute kidney failure with tubular necrosis; S06.0X9A Concussion with loss of consciousness of unspecified duration, initial encounter; E78.00 Pure hypercholesterolemia, unspecified; F32.9 Major depressive disorder, single episode, unspecified; I25.10 Atherosclerotic heart disease of native coronary artery without angina pectoris; E78.5 Hyperlipidemia, unspecified; F41.9 Anxiety disorder, unspecified; K21.9 Gastro-esophageal reflux disease without esophagitis; I95.1 Orthostatic hypotension; D63.8 Anemia in other chronic diseases classified elsewhere; N18.3 Chronic kidney disease, stage 3 (moderate); E11.22 Type 2 diabetes mellitus with diabetic chronic kidney disease; E86.0 Dehydration; N89.8 Other specified noninflammatory disorders of vagina; W01.0XXA Fall on same level from slipping, tripping and stumbling without subsequent striking against object, initial encounter; Y93.89 Activity, other specified; Y92.091 Bathroom in other non-institutional residence as the place of occurrence of the external cause; Y99.8 Other external cause status; Z88.5 Allergy status to narcotic agent; Z88.8 Allergy status to other drugs, medicaments and biological substances; Z91.018 Allergy to other foods; Z95.5 Presence of coronary angioplasty implant and graft; I25.2 Old myocardial infarction; Z90.710 Acquired absence of both cervix and uterus; Z90.81 Acquired absence of spleen; Z91.5 Personal history of self-harm; Z80.0 Family history of malignant neoplasm of digestive organs; Z81.8 Family history of other mental and behavioral disorders; Z83.3 Family history of diabetes mellitus; Z82.49 Family history of ischemic heart disease and other diseases of the circulatory system
CPT/HCPCS: 29125; 36415; 70450; 71045; 72125; 73110; 74176; 80048; 80053; 81001; 82947; 83605; 83690; 84145; 84484; 85025; 87040; 87086; 93005; 96365; 96366; J0696; J1815; J3010; 97110; 99285-25; J7030

== ENCOUNTER 2019-04-08 12:05 | Inpatient (IN) | payer MEDICARE, OTHER ==
[~2019-04-08] VITALS: Ht 146.1 cm; Wt 64.5 kg
[~2019-04-08 12:05] MED LIST changes: +ARIP2TAB35 PO; +ATORVASTATIN CA80 MG PO; +BUSP15TA PO; +CARV12.547 PO; +CARV6.2541 PO; +DULO60CA98 PO; +FURO20TA3 PO; +LIPA1CAP12 PO; +METF500T11 PO; +SPIR25TA5 PO
[2019-04-08 12:28] VITALS: BP 158/76
[2019-04-08] MEDS ORDERED: IOHEXOL 240 MG/ML 50ML VIAL. ONE (12:52)
[2019-04-08] MEDS ORDERED: MORPHINE SULFATE 2 MG/ML DISP.SYRIN. IV PRN (13:00)
[2019-04-08] MEDS ORDERED: IOHEXOL 240 MG/ML 50ML VIAL. PO ONE (13:00)
[2019-04-08] MEDS ORDERED: ONDANSETRON PF 4 MG/2 ML VIAL. IVP PRN (13:00)
[2019-04-08 13:16] LABS: BASO # 0.2 x10^3/uL (0.0-0.2); BASO % 1 % (0-3); EOS # 0.5 x10^3/uL (0.0-0.7); EOS % 3 % (0-3); HEMATOCRIT 35.6 % (36.0-47.0); LYMPH % 21 % (24-48); MEAN CORPUSCULAR HEMOGLOBIN 28 pg (25-35); MEAN CORPUSCULAR HGB CONC 31 g/dL (31-37); MEAN CORPUSCULAR VOLUME 91 fL (79-100); MONO # 1.5 x10^3/uL (0.0-1.1); MONO % 8 % (0-9); NEUT # 12.4 x10^3uL (1.8-7.7); NEUT % 67 % (31-73); PLATELET COUNT 579 x10^3/uL (140-400); RED BLOOD COUNT 3.92 x10^6/uL (3.50-5.40); RED CELL DISTRIBUTION WIDTH 16.2 % (11.5-14.5); WHITE BLOOD COUNT 18.5 x10^3/uL (4.0-11.0)
[2019-04-08] MEDS ORDERED: FUROSEMIDE 20 MG TABLET PO PRN (13:30)
[2019-04-08] MEDS ORDERED: IV 1/2 NORMAL SALINE 1,000 ML IV PRN (13:30)
[2019-04-08 13:41] LABS: % BANDS 1 % (0-9); % EOS 1 % (0-5); % LYMPHS 19 % (24-48); % MONOS 9 % (0-10); % SEGS 70 % (35-66); PLT ESTIMATE INCREASED (ADEQUATE)
[2019-04-08 13:42] LABS: POLYCHROMASIA PRESENT
[2019-04-08 13:43] LABS: TOXIC GRANULATION PRESENT; TOXIC VACUOLATION PRESENT
[2019-04-08 13:44] LABS: ANISOCYTOSIS PRESENT
[2019-04-08 13:45] LABS: OVALOCYTES OCC; TEAR DROP CELLS OCC
[2019-04-08] MEDS ORDERED: LOPERAMIDE 2 MG CAPSULE PO PRN (13:45)
[2019-04-08 14:02] LABS: ALBUMIN 3.4 g/dL (3.4-5.0); ALBUMIN/GLOBULIN RATIO 0.7 (1.0-1.7); CALCIUM 8.9 mg/dL (8.5-10.1); CREATININE 1.5 mg/dL (0.6-1.0); POTASSIUM 5.1 mmol/L (3.5-5.1); TOTAL BILIRUBIN 0.2 mg/dL (0.2-1.0); TOTAL PROTEIN 8.3 g/dL (6.4-8.2)
[2019-04-08 14:22] VITALS: BP 145/85
[2019-04-08] MEDS: IV NORMAL SALINE 1,000ML 1,000 ML IV SCH (14:24)
--- NOTE | 2019-04-08 14:47 | RAD ---
Examination: CT ABD PEL W/ORAL CONTRST ONLY History: Left lower quadrant pain, nausea Comparison/Correlation: 02/23/2019 CT abdomen and pelvis without contrast Findings: Axial images of the abdomen and pelvis were obtained following oral contrast only. Sagittal and coronal reformatted images were provided. Coronary arterial calcification noted. Liver is unremarkable. Spleen is not identified. Few punctate calcifications involving the pancreas. Cholecystectomy is evident. Adrenal glands are normal. No radiopaque collecting system calculi. Inferior vena cava is somewhat decompressed. There are ventral abdominal wall hernias containing fat and loops of small bowel and transverse colon. This includes a hernia sac to the left of midline measuring approximately 8 cm in maximum dimension and the hernia sac to the right of midline measuring approximately 4 cm in maximum dimension. There is evidence of prior ventral abdominal wall hernia repair. There is a generator within the right buttock with lead extending to terminate within the lower thoracic spinal canal. The uterus is surgically absent. The urinary bladder is unremarkable. There is aortic and aortic branch vessel atherosclerosis. There are few nonspecific lymph nodes. No suspicious lymphadenopathy is seen. There are degenerative changes involving the spine. There are few osseous hemangiomas, the largest of which is seen within L2. Impression: No acute inflammatory process. Ventral hernias are again seen containing short segment of the transverse colon and small bowel. No findings of cannulation or obstruction. PQRS Compliance Statement: One or more of the following individualized dose reduction techniques were utilized for this examination: 1. Automated exposure control 2. Adjustment of the mA and/or kV according to patient size 3. Use of iterative reconstruction technique Electronically signed by: Leroy Loaiza MD (04/08/2019 2:44 PM) [facility]
--- NOTE | 2019-04-08 14:49 | NUR ---
NURSING NOTE ADMIT PT DIRECT ADMIT TO ROOM [address] OFFICE WITH DX OF LLQ PAIN, N/V. RULE OUT DIVERTICULITIS. PT C/O NAUSEA AND VOMITING, DENIES VOMITING SINCE YESTERDAY BUT STATES HER STOMACH DOES HURT. PT SETTLED IN ROOM, DR GE NOTIFIED OF ARRIVAL. NO COMPLICATIONS. AMADEO AYALA.
[2019-04-08] MEDS: CARVEDILOL 12.5 MG TABLET PO SCH (16:16)
[2019-04-08] MEDS: DICLOFENAC SODIUM 1% TOPICAL GEL 100GM TUBE. TP SCH ×4 (16:16→21:00)
[2019-04-08] MEDS: LIPASE/PROTEAS/AMYLAS 10/32/42 CAPSULE.DR. PO SCH (16:16)
[2019-04-08] MEDS ORDERED: INSULIN ASPART 6 UNIT SQ SCH (16:30)
[2019-04-08] MEDS: IPRATRPIUM/ALBUTEROL 0.5/2.5MG 3 ML NEBU. NEB SCH ×2 (16:34→20:37)
[2019-04-08] MEDS: INSULIN LISPRO 300 UNITS/3 ML VIAL. SQ SCH (16:49)
[2019-04-08 17:16] LABS: CLARITY,URINE CLEAR; COLOR,URINE YELLOW
[2019-04-08 17:17] LABS: BACTERIA,URINE 0 /HPF (0-FEW); BILIRUBIN,URINE NEG (NEG); GLUCOSE,URINE 500 mg/dL (NEG); NITRITE,URINE NEG (NEG); RBC,URINE 0 /HPF (0-2); SQUAMOUS EPITHELIAL CELL,UR OCC /LPF; UROBILINOGEN,URINE 0.2 mg/dL (0.2 mg/dL); WBC,URINE 0 /HPF (0-4)
[2019-04-08] MEDS ORDERED: PIP/TAZO PER PHARMACY MC PRN (18:30)
[2019-04-08 19:37] VITALS: BP 121/77
[2019-04-08] MEDS: busPIRone 15 MG TABLET. PO SCH (20:09)
[2019-04-08] MEDS: buPROPion SR 150 MG TABLET.SA PO SCH (20:09)
[2019-04-08 20:10] VITALS: BP 127/73
[2019-04-08] MEDS: DULoxetine HCL 60 MG CAPSULE.DR PO SCH (20:10)
[2019-04-08] MEDS: MIRTAZAPINE 30 MG TABLET PO SCH (20:11)
[2019-04-08] MEDS: ZONISAMIDE 100 MG CAPSULE. PO SCH (20:11)
[2019-04-08] MEDS: carBAMazepine 200 MG TABLET PO SCH (20:11)
[2019-04-08] MEDS: rOPINIRole 1 MG TABLET. PO SCH (20:11)
[2019-04-08] MEDS: NORTRIPTYLINE 25 MG CAPSULE PO SCH (20:11)
[2019-04-08] MEDS: INSULIN GLARGINE SYRINGE. SQ SCH (20:16)
[2019-04-08] MEDS ORDERED: INSULIN DETEMIR 36 UNIT SQ SCH (21:00)
[2019-04-08 22:10] VITALS: BP 127/73
[2019-04-08] MEDS: clonazePAM 0.5 MG TABLET PO PRN (22:53)
--- NOTE | 2019-04-08 23:26 | RAD ---
PA and lateral chest x-ray HISTORY: Shortness of breath. COMPARISON: Chest x-ray February 23, 2019. FINDINGS: Heart size normal. Mild tortuosity thoracic aorta is stable. Thoracic spinal stimulator. Blunting of the posterior costophrenic angles may represent small pleural effusions. No pneumothorax. No pulmonary opacities. Thoracic disc osteophytes. IMPRESSION: Small pleural effusions versus pleural thickening along the posterior diaphragms. Electronically signed by: Vinnie Gan MD (04/08/2019 11:23 PM) [facility]
[2019-04-08] MEDS: PIPERACILLIN/TAZOBACTAM 3.375 GM in IV NORMAL SALINE 50ML 50 ML IV SCH (23:59)
[2019-04-09] MEDS: IV NORMAL SALINE 1,000ML 1,000 ML IV SCH ×3 (02:20→15:58)
[2019-04-09] MEDS: IPRATRPIUM/ALBUTEROL 0.5/2.5MG 3 ML NEBU. NEB SCH ×4 (04:52→20:33)
[2019-04-09] MEDS: PIPERACILLIN/TAZOBACTAM 3.375 GM in IV NORMAL SALINE 50ML 50 ML IV SCH ×3 (05:37→16:34)
[2019-04-09 05:47] VITALS: BP 121/76
[2019-04-09 06:36] LABS: BASO # 0.1 x10^3/uL (0.0-0.2); BASO % 1 % (0-3); EOS # 0.6 x10^3/uL (0.0-0.7); EOS % 5 % (0-3); HEMATOCRIT 30.4 % (36.0-47.0); HEMOGLOBIN 9.6 g/dL (12.0-15.5); LYMPH # 4.1 x10^3/uL (1.0-4.8); LYMPH % 33 % (24-48); MEAN CORPUSCULAR HEMOGLOBIN 28 pg (25-35); MEAN CORPUSCULAR HGB CONC 32 g/dL (31-37); MEAN CORPUSCULAR VOLUME 90 fL (79-100); MONO # 1.2 x10^3/uL (0.0-1.1); MONO % 9 % (0-9); NEUT # 6.5 x10^3uL (1.8-7.7); NEUT % 52 % (31-73); PLATELET COUNT 526 x10^3/uL (140-400); RED BLOOD COUNT 3.37 x10^6/uL (3.50-5.40); RED CELL DISTRIBUTION WIDTH 15.9 % (11.5-14.5); WHITE BLOOD COUNT 12.4 x10^3/uL (4.0-11.0)
[2019-04-09 06:47] LABS: CALCIUM 8.1 mg/dL (8.5-10.1); GFR 54.3; POTASSIUM 4.3 mmol/L (3.5-5.1)
[2019-04-09] MEDS: INSULIN LISPRO 300 UNITS/3 ML VIAL. SQ SCH ×2 (08:00→12:07)
[2019-04-09] MEDS: DULoxetine HCL 60 MG CAPSULE.DR PO SCH ×2 (08:24→20:23)
[2019-04-09] MEDS: buPROPion SR 150 MG TABLET.SA PO SCH ×2 (08:24→20:23)
[2019-04-09] MEDS: LIPASE/PROTEAS/AMYLAS 10/32/42 CAPSULE.DR. PO SCH ×3 (08:25→16:34)
[2019-04-09] MEDS: busPIRone 15 MG TABLET. PO SCH ×2 (08:25→20:22)
[2019-04-09] MEDS: CARVEDILOL 12.5 MG TABLET PO SCH ×2 (08:25→16:35)
[2019-04-09] MEDS: ARIPiprazole 2 MG TABLET PO SCH (08:27)
[2019-04-09] MEDS: FLUTICASONE 50MCG/NASAL SPRAY 16GM BOTTLE. NS SCH (08:27)
[2019-04-09] MEDS: MONTELUKAST 10 MG TABLET. PO SCH (08:30)
[2019-04-09] MEDS: MULTIVITAMIN with MINERAL TABLET. PO SCH (08:30)
[2019-04-09] MEDS: amLODIPine BESYLATE 5 MG TABLET PO SCH (08:30)
[2019-04-09] MEDS: CHOLECALCIFEROL (VITAMIN D3) 1,000 UNIT TABLET PO SCH (08:30)
[2019-04-09] MEDS: PANTOPRAZOLE 40 MG TABLET. PO SCH (08:30)
[2019-04-09] MEDS: LISINOPRIL 5 MG TABLET. PO SCH (08:31)
[2019-04-09] MEDS: FAMOTIDINE 20 MG TABLET PO SCH (08:31)
[2019-04-09] MEDS: METOPROLOL SUCC 24HR ER 25 MG TAB.ER.24H. PO SCH (08:31)
[2019-04-09] MEDS: SPIRONOLACTONE 25 MG TABLET PO SCH (08:31)
[2019-04-09] MEDS: ATORVASTATIN CALCIUM 20 MG TABLET PO SCH (08:31)
[2019-04-09] MEDS: CETIRIZINE HCL 10 MG TABLET PO SCH (08:31)
[2019-04-09] MEDS: ASPIRIN 81 MG TAB.CHEW PO SCH (08:31)
[2019-04-09] MEDS: DICLOFENAC SODIUM 1% TOPICAL GEL 100GM TUBE. TP SCH ×4 (08:35→20:32)
[2019-04-09] MEDS: ZONISAMIDE 100 MG CAPSULE. PO SCH ×3 (08:36→20:23)
[2019-04-09] MEDS: INSULIN GLARGINE SYRINGE. SQ SCH (08:36)
[2019-04-09] MEDS ORDERED: ASA/APAP/CAFFEINE 250/250/65MG TABLET. PO PRN (10:00)
[2019-04-09 11:35] VITALS: BP 116/70
[2019-04-09] MEDS ORDERED: POLYVINYL ALCOHOL 1.4% OPHTH SOLUTION 15ML BOTTLE. OU PRN (14:15)
[2019-04-09 15:43] VITALS: BP 99/50
[2019-04-09] MEDS: POLYVINYL ALCOHOL 1.4% OPHTH SOLUTION 15ML BOTTLE. OU PRN ×2 (15:57→20:32)
[2019-04-09] MEDS: INSULIN ASPART 6 UNIT SQ SCH (16:36)
[2019-04-09 20:02] VITALS: BP 104/61
[2019-04-09] MEDS: LACTOBACILLUS RHAMNOSUS GG 1 CAPSULE. PO SCH (20:22)
[2019-04-09] MEDS: MIRTAZAPINE 30 MG TABLET PO SCH (20:23)
[2019-04-09] MEDS: carBAMazepine 200 MG TABLET PO SCH (20:23)
[2019-04-09] MEDS: rOPINIRole 1 MG TABLET. PO SCH (20:23)
[2019-04-09] MEDS: NORTRIPTYLINE 25 MG CAPSULE PO SCH (20:24)
[2019-04-09] MEDS: INSULIN DETEMIR 36 UNIT SQ SCH (20:25)
[2019-04-09] MEDS: clonazePAM 0.5 MG TABLET PO PRN (21:43)
[2019-04-09] MEDS: ASA/APAP/CAFFEINE 250/250/65MG TABLET. PO PRN (23:11)
--- NOTE | 2019-04-09 23:33 | PN ---
DATE: SUBJECTIVE: The patient came in with abdominal pain. She has had this before. The patient is resting fairly comfortably, making fairly good progress. She still had a lot of tenderness. Attempts were made to transfer the patient; however, [place] was on diversion and [facility] refused to see her because of some other problems they were having. In any case, the patient seems to be doing somewhat better. Her white count has come down very nicely to the 12,000 range from over 18,000. Notes from Dr. Perry, who had seen her down there at [facility] before indicated that these hernias are longstanding and that no surgery would be indicated because of her overall other medical health problems. OBJECTIVE: VITAL SIGNS: Her blood pressure is 100/50, respiratory rate 20, pulse 70, afebrile. GENERAL: The patient is alert and oriented x 3. Speech fluent, spontaneous, appropriate. ABDOMEN: Soft. Ventral hernias were noted. Tender on palpation, some slight guarding, but no rebounding. The patient's bowel sounds are active, having bowel movements. PLAN: We will go ahead and have her ready hopefully for discharge in the morning. Continue on IV antibiotic therapy. IMPRESSION: Abdominal ventral hernias, possible colitis; anemia of chronic disease; type 2 diabetes; morbid obesity. PLAN: As above. JAYMIE GE MD DR: MAURIZIO/luis angel JOB#: [id number] / [id number]
[2019-04-09 23:43] VITALS: BP 122/78
[2019-04-10] MEDS: PIPERACILLIN/TAZOBACTAM 3.375 GM in IV NORMAL SALINE 50ML 50 ML IV SCH ×4 (00:04→17:12)
[2019-04-10 00:07] LABS: HEMOGLOBIN A1C 8.4 % (4.8-5.6)
[2019-04-10] MEDS ORDERED: ACETAMINOPHEN 325 MG TABLET PO PRN (03:00)
[2019-04-10] MEDS: IPRATRPIUM/ALBUTEROL 0.5/2.5MG 3 ML NEBU. NEB SCH ×4 (04:35→20:38)
[2019-04-10] MEDS: IV NORMAL SALINE 1,000ML 1,000 ML IV SCH ×2 (05:51→18:01)
[2019-04-10 06:23] VITALS: BP 114/76
[2019-04-10 06:49] LABS: BASO # 0.1 x10^3/uL (0.0-0.2); BASO % 1 % (0-3); EOS # 0.7 x10^3/uL (0.0-0.7); EOS % 6 % (0-3); HEMATOCRIT 30.6 % (36.0-47.0); HEMOGLOBIN 9.5 g/dL (12.0-15.5); LYMPH # 3.3 x10^3/uL (1.0-4.8); LYMPH % 29 % (24-48); MEAN CORPUSCULAR HEMOGLOBIN 28 pg (25-35); MEAN CORPUSCULAR HGB CONC 31 g/dL (31-37); MEAN CORPUSCULAR VOLUME 91 fL (79-100); MONO # 1.1 x10^3/uL (0.0-1.1); MONO % 10 % (0-9); NEUT # 6.3 x10^3uL (1.8-7.7); NEUT % 55 % (31-73); PLATELET COUNT 500 x10^3/uL (140-400); RED BLOOD COUNT 3.37 x10^6/uL (3.50-5.40); RED CELL DISTRIBUTION WIDTH 15.5 % (11.5-14.5); WHITE BLOOD COUNT 11.6 x10^3/uL (4.0-11.0)
[2019-04-10 06:55] LABS: CALCIUM 8.6 mg/dL (8.5-10.1); CREATININE 1.1 mg/dL (0.6-1.0); GFR 48.7; POTASSIUM 4.3 mmol/L (3.5-5.1)
[2019-04-10] MEDS: INSULIN ASPART 6 UNIT SQ SCH ×3 (08:00→17:14)
[2019-04-10] MEDS: ATORVASTATIN CALCIUM 20 MG TABLET PO SCH (08:09)
[2019-04-10] MEDS: CARVEDILOL 12.5 MG TABLET PO SCH ×2 (08:10→17:11)
[2019-04-10] MEDS: FAMOTIDINE 20 MG TABLET PO SCH (08:10)
[2019-04-10] MEDS: METOPROLOL SUCC 24HR ER 25 MG TAB.ER.24H. PO SCH (08:11)
[2019-04-10] MEDS: busPIRone 15 MG TABLET. PO SCH ×2 (08:11→22:08)
[2019-04-10] MEDS: DULoxetine HCL 60 MG CAPSULE.DR PO SCH ×2 (08:11→22:08)
[2019-04-10] MEDS: LIPASE/PROTEAS/AMYLAS 10/32/42 CAPSULE.DR. PO SCH ×3 (08:11→17:11)
[2019-04-10] MEDS: buPROPion SR 150 MG TABLET.SA PO SCH ×2 (08:11→22:08)
[2019-04-10] MEDS: ASPIRIN 81 MG TAB.CHEW PO SCH (08:12)
[2019-04-10] MEDS: MULTIVITAMIN with MINERAL TABLET. PO SCH (08:12)
[2019-04-10] MEDS: CHOLECALCIFEROL (VITAMIN D3) 1,000 UNIT TABLET PO SCH (08:12)
[2019-04-10] MEDS: LACTOBACILLUS RHAMNOSUS GG 1 CAPSULE. PO SCH ×2 (08:12→22:08)
[2019-04-10] MEDS: LISINOPRIL 5 MG TABLET. PO SCH (08:12)
[2019-04-10] MEDS: SPIRONOLACTONE 25 MG TABLET PO SCH (08:12)
[2019-04-10] MEDS: CETIRIZINE HCL 10 MG TABLET PO SCH (08:12)
[2019-04-10] MEDS: PANTOPRAZOLE 40 MG TABLET. PO SCH (08:12)
[2019-04-10] MEDS: MONTELUKAST 10 MG TABLET. PO SCH (08:12)
[2019-04-10] MEDS: amLODIPine BESYLATE 5 MG TABLET PO SCH (08:13)
[2019-04-10] MEDS: DICLOFENAC SODIUM 1% TOPICAL GEL 100GM TUBE. TP SCH ×5 (08:13→22:11)
[2019-04-10] MEDS: FLUTICASONE 50MCG/NASAL SPRAY 16GM BOTTLE. NS SCH (08:13)
[2019-04-10] MEDS: POLYVINYL ALCOHOL 1.4% OPHTH SOLUTION 15ML BOTTLE. OU PRN (08:13)
[2019-04-10] MEDS: ZONISAMIDE 100 MG CAPSULE. PO SCH ×3 (08:14→22:08)
[2019-04-10] MEDS: ARIPiprazole 2 MG TABLET PO SCH (08:14)
[2019-04-10] MEDS: INSULIN DETEMIR 36 UNIT SQ SCH ×2 (08:18→22:09)
[2019-04-10] MEDS ORDERED: TEMAZEPAM 7.5 MG CAPSULE PO PRN (09:30)
[2019-04-10] MEDS ORDERED: BISACODYL 10 MG SUPP.RECT PR PRN (09:30)
[2019-04-10] MEDS: ASA/APAP/CAFFEINE 250/250/65MG TABLET. PO PRN (10:26)
[2019-04-10 10:49] VITALS: BP 132/62
[2019-04-10 14:54] VITALS: BP 133/70
[2019-04-10] MEDS: LIDOCAINE (700MG/PATCH) PATCH. TD SCH (14:56)
--- NOTE | 2019-04-10 16:30 | RAD ---
Examination: Acute abdomen series HISTORY: History of abdominal pain COMPARISON: 08/03/2018. Findings: Mild cardiomegaly. The lungs are clear. No evidence of free air noted under the hemidiaphragms. Cholecystectomy clips identified. Few air-fluid levels identified in the bowel loops in the mid abdomen. Feces and gas noted in the colon. IMPRESSION: Few air-fluid levels identified in the bowel loops in the mid abdomen, partial small bowel obstruction is not completely excluded. Electronically signed by: Gerald Rutherford MD (04/10/2019 4:27 PM) [facility]
[2019-04-10 19:26] VITALS: BP 121/71
[2019-04-10] MEDS ORDERED: PATCH REMOVAL. MC SCH (21:00)
[2019-04-10] MEDS: NORTRIPTYLINE 25 MG CAPSULE PO SCH (22:07)
[2019-04-10] MEDS: carBAMazepine 200 MG TABLET PO SCH (22:08)
[2019-04-10] MEDS: DOCUSATE SODIUM 100 MG CAPSULE PO SCH (22:08)
[2019-04-10] MEDS: MIRTAZAPINE 30 MG TABLET PO SCH (22:08)
[2019-04-10] MEDS: rOPINIRole 1 MG TABLET. PO SCH (22:08)
[2019-04-10 22:42] VITALS: BP 124/70
--- NOTE | 2019-04-10 23:05 | PN ---
DATE: SUBJECTIVE: A 73-year-old female in with severe abdominal pain. She has severe ventral hernias, possible colitis. The patient has noted no surgeons want to do anything with her because she is an extreme high risk for surgery. She has been seen by Psychiatry. If you look at her review of medication, she is on multiple antidepressants and other medications, but apparently she does see a psychiatrist to adjust her antidepressant medications as well as other medication such as carbamazepine, buspirone, nortriptyline, Zonegran and other neurological medications. She is on piperacillin and Levaquin and that seems to be helping her. Infection has come down from 18 down now to 11. The patient's sodium and potassium are basically unremarkable. Otherwise, holding its own. The patient otherwise is resting fairly comfortably, still complaining of some pain, but somewhat improved. OBJECTIVE: VITAL SIGNS: Blood pressure 114/76, respiratory rate 18, pulse 72, afebrile. GENERAL: The patient is alert and oriented x 3. Speech fluent, spontaneous, appropriate. Cranial nerves 2-12 grossly intact. ABDOMEN: Markedly distended with these ventral hernias. They are tender, but less tender than they were, so there is improvement. EXTREMITIES: No clubbing, cyanosis or edema. NEUROLOGIC: Intact. LABORATORY DATA: White count discussed earlier. The patient's electrolytes also basically stable as is her creatinine. Blood sugars seem to be under relatively good control overall. She did have an elevated uric acid, although no signs of gout there. The patient is to have an acute abdominal series this morning and make further evaluation. IMPRESSION: Severe abdominal pain; colitis; ventral hernias, inoperable; multiple antidepressive medications per her psychiatrist. PLAN: Continue to monitor her carefully and make further evaluation on her as indicated. JAYMIE GE MD DR: MAURIZIO/luis angel JOB#: [id number] / [id number]
[2019-04-11 05:55] VITALS: BP 163/82
[2019-04-11] MEDS: PIPERACILLIN/TAZOBACTAM 3.375 GM in IV NORMAL SALINE 50ML 50 ML IV SCH ×3 (06:03)
[2019-04-11] MEDS: LIPASE/PROTEAS/AMYLAS 10/32/42 CAPSULE.DR. PO SCH (08:18)
[2019-04-11] MEDS: buPROPion SR 150 MG TABLET.SA PO SCH (08:18)
[2019-04-11] MEDS: ASPIRIN 81 MG TAB.CHEW PO SCH (08:18)
[2019-04-11] MEDS: MULTIVITAMIN with MINERAL TABLET. PO SCH (08:18)
[2019-04-11] MEDS: FAMOTIDINE 20 MG TABLET PO SCH (08:18)
[2019-04-11] MEDS: ATORVASTATIN CALCIUM 20 MG TABLET PO SCH (08:18)
[2019-04-11] MEDS: LACTOBACILLUS RHAMNOSUS GG 1 CAPSULE. PO SCH (08:18)
[2019-04-11] MEDS: busPIRone 15 MG TABLET. PO SCH (08:18)
[2019-04-11] MEDS: CARVEDILOL 12.5 MG TABLET PO SCH (08:18)
[2019-04-11] MEDS: LISINOPRIL 5 MG TABLET. PO SCH (08:19)
[2019-04-11] MEDS: METOPROLOL SUCC 24HR ER 25 MG TAB.ER.24H. PO SCH (08:19)
[2019-04-11 08:20] VITALS: BP 163/82
[2019-04-11] MEDS: CETIRIZINE HCL 10 MG TABLET PO SCH (08:20)
[2019-04-11] MEDS: PANTOPRAZOLE 40 MG TABLET. PO SCH (08:20)
[2019-04-11] MEDS: CHOLECALCIFEROL (VITAMIN D3) 1,000 UNIT TABLET PO SCH (08:20)
[2019-04-11] MEDS: amLODIPine BESYLATE 5 MG TABLET PO SCH (08:20)
[2019-04-11] MEDS: DOCUSATE SODIUM 100 MG CAPSULE PO SCH (08:20)
[2019-04-11] MEDS: MONTELUKAST 10 MG TABLET. PO SCH (08:20)
[2019-04-11] MEDS: ARIPiprazole 2 MG TABLET PO SCH (08:21)
[2019-04-11] MEDS: SPIRONOLACTONE 25 MG TABLET PO SCH (08:21)
[2019-04-11] MEDS: ZONISAMIDE 100 MG CAPSULE. PO SCH (08:23)
[2019-04-11] MEDS: LIDOCAINE (700MG/PATCH) PATCH. TD SCH (08:23)
[2019-04-11] MEDS: DICLOFENAC SODIUM 1% TOPICAL GEL 100GM TUBE. TP SCH (08:24)
[2019-04-11] MEDS: DULoxetine HCL 60 MG CAPSULE.DR PO SCH (08:28)
[2019-04-11] MEDS: INSULIN ASPART 6 UNIT SQ SCH (08:39)
[2019-04-11] MEDS: INSULIN DETEMIR 36 UNIT SQ SCH (08:39)
[2019-04-11] MEDS: IPRATRPIUM/ALBUTEROL 0.5/2.5MG 3 ML NEBU. NEB SCH (08:40)
[2019-04-11] MEDS: FLUTICASONE 50MCG/NASAL SPRAY 16GM BOTTLE. NS SCH (08:41)
[2019-04-11] MEDS: ASA/APAP/CAFFEINE 250/250/65MG TABLET. PO PRN (09:08)
--- NOTE | 2019-04-11 09:24 | NUR ---
NURSING NOTES: DR. GE HERE TO SEE PATIENT THIS AM. PLAN IS TO TRANSFER PATIENT TO [facility] FOR PROBABLE SMALL BOWEL OBSTRUCTIONS. PATIENT C/O PAIN IN ABDOMEN AT 3/10 THIS AM. LBM 04/10/19 NOTED TO BE LOOSE. PATIENT ALSO C/O MIGRAINE THIS AM, PRN EXCEDRIN GIVEN, WILL CONTINUE TO MONITOR. NO FURTHER CONCERNS AT THIS TIME.
--- NOTE | 2019-04-11 10:30 | NUR ---
NURSING NOTES: EMS HERE TO TRANSFER PATIENT TO [facility] AT THIS TIME. ALL PATIENT BELONGINGS SENT WITH PATIENT. NO CONCERNS AT THIS TIME.
--- NOTE | 2019-04-11 11:11 | DS ---
DATE OF DISCHARGE: 04/11/2019 HOSPITAL SUMMARY: A 73-year-old female patient came in with abdominal pain. The patient has severe abdominal pain. She has multiple ventral hernias that have been there for some time. The patient was attempted to be transferred, but either due to diversion or surgeons not wanting to do anything aggressive with her at that time, the patient was kept here and bowel rest and the like. She actually been a little bit progress, but continued on her last x-ray did show a small-bowel obstruction and as a result of that partial small-bowel obstruction and only passing loose watery stools would indicate the patient does have some type of obstruction. The patient's blood pressure is 163/82, respiratory rate 20, pulse 75. The patient was transferred down to [place] for a second opinion with surgery down there as indicated. The patient has had previous repairs to her abdominal hernia. She also has some tardive dyskinesia. She has also splenectomy as noted. Her white count is 11, hemoglobin 9.5 and 30. Chemistries were unremarkable. She is also diabetic. BUN and creatinine of 18 and 1.1, sodium 137, 4.3 and A1c of 8.4. Uric acid elevated at 9.9. The patient did seem to get some relief with Lidoderm patches to her abdomen as well as afraid to give her pain medications by mouth, so as to cause even more constipation. The patient because of this recurrent partial small-bowel obstruction or small-bowel obstruction and her loose stools, would indicate some type of blockage. The patient will be transferred as noted down to [place] for a second opinion. The patient consents to such and will be transferred down there. IMPRESSION: Small-bowel obstruction, abdominal pain, ventral hernias, type 2 diabetes, morbid obesity, anemia of chronic disease, chronic kidney disease stage 2, hyperuricemia. PLAN: The patient will be continued to be monitored and transferred via EMS to [facility]. JAYMIE GE MD DR: MAURIZIO/luis angel JOB#: [id number] / [id number]
== END 2019-04-11 10:32 | disposition short-term general hospital (02) | DRG 388 ==
LOC: 1 SOUTH 12:05
PROVIDERS: ADMIT Family Medicine; ATTEND Family Medicine
DX: K56.609 Unspecified intestinal obstruction, unspecified as to partial versus complete obstruction (principal); N17.0 Acute kidney failure with tubular necrosis; Z68.44 Body mass index [BMI] 60.0-69.9, adult; K52.9 Noninfective gastroenteritis and colitis, unspecified; K43.9 Ventral hernia without obstruction or gangrene; Z88.8 Allergy status to other drugs, medicaments and biological substances; Z79.899 Other long term (current) drug therapy; E11.9 Type 2 diabetes mellitus without complications; E66.01 Morbid (severe) obesity due to excess calories; D63.1 Anemia in chronic kidney disease; E11.22 Type 2 diabetes mellitus with diabetic chronic kidney disease; N18.2 Chronic kidney disease, stage 2 (mild); Z79.4 Long term (current) use of insulin; E79.0 Hyperuricemia without signs of inflammatory arthritis and tophaceous disease
CPT/HCPCS: 36415; 71046; 74022; 74176; 80048; 80053; 81001; 82150; 82947; 83036; 83690; 84550; 85007; 85025; 94640; J1815; J1956; J2543; J3010; J7620; Q9966; J7030

== ENCOUNTER 2019-04-19 20:04 | Inpatient (IN) | payer MEDICARE, OTHER ==
[~2019-04-19] VITALS: Ht 146.1 cm; Wt 67.6 kg
[2019-04-19] MEDS ORDERED: IV NORMAL SALINE 1,000ML 1,000 ML IV ONE ×2 (20:15→22:15)
--- NOTE | 2019-04-19 20:45 | PHYS DOC ---
Past History Past Medical History: Depression, High Cholesterol, CA, Other Additional Past Medical Histor: tardive dysk, renal insuff Past Surgical History: Cholecystectomy, Hysterectomy, Other Additional Past Surgical Histo: splenectomy Smoking: Non-smoker Alcohol Use: None Drug Use: None Adult General Chief Complaint Chief Complaint: SYNCOPE HPI HPI 73-year-old female presents via EMS with 2 syncopal episodes today. They were about one hour apart. The patient tells me that she just started to feel weak and like she might pass out and then notes all she remembers. Her caught her the second time. The first time the patient's son exactly sure where she was when it happened. She has been having diarrhea the last 3 days. She was recently admitted to this facility and discharged on Monday. She has been trying to drink fluids orally. She denies vomiting. Her diarrhea is very runny. She denies any pain or other complaints. No recent changes to medications. Denies fever or chills. Review of Systems Review of Systems Constitutional: Denies fever or chills [] Eyes: Denies change in visual acuity, redness, or eye pain [] HENT: Denies nasal congestion or sore throat [] Respiratory: Denies cough or shortness of breath [] Cardiovascular: No additional information not addressed in HPI [] GI: Diarrhea. Denies abdominal pain, nausea, vomiting, bloody stools [] : Denies dysuria or hematuria [] Musculoskeletal: Denies back pain or joint pain [] Integument: Denies rash or skin lesions [] Neurologic: Syncope. Denies headache, focal weakness or sensory changes [] Endocrine: Denies polyuria or polydipsia [] All other systems were reviewed and found to be within normal limits, except as documented in this note. Current Medications Current Medications Current Medications Medications (Trade) Dose Ordered Sig/Kristin Start Time Stop Time Status Last Admin Dose Admin Loperamide HCl (Imodium) 4 mg 1X ONCE 04/19/19 21:00 04/19/19 21:01 Sodium Chloride 1,000 ml @ 1,000 mls/hr 1X ONCE 04/19/19 20:15 04/19/19 21:14 04/19/19 20:15 1,000 MLS/HR Allergies Allergies Allergies Coded Allergies Type Severity Reaction Last Updated Verified grapefruit Allergy Intermediate 04/19/19 Yes hydromorphone Allergy Intermediate 04/19/19 Yes metoclopramide Allergy Intermediate 04/19/19 Yes morphine Allergy Intermediate 04/19/19 Yes phenytoin Allergy Intermediate 04/19/19 Yes trazodone Allergy Intermediate 04/19/19 Yes zolpidem Allergy Intermediate 04/19/19 Yes Physical Exam Physical Exam Constitutional: Well developed, obese, well nourished, no acute distress, non- toxic appearance. [] HENT: Normocephalic, atraumatic, bilateral external ears normal, oropharynx dry, no oral exudates, nose normal. [] Eyes: PERRLA, EOMI, conjunctiva normal, no discharge. [] Neck: Normal range of motion, no tenderness, supple, no stridor. [] Cardiovascular:Heart rate regular rhythm, no murmur [] Lungs & Thorax: Bilateral breath sounds clear to auscultation [] Abdomen: Bowel sounds normal, soft, no tenderness, no masses, no pulsatile masses. [] Skin: Warm, dry, no erythema, no rash. [] Back: No tenderness, no CVA tenderness. [] Extremities: No tenderness, no cyanosis, no clubbing, ROM intact, no edema. [] Neurologic: Alert and oriented X 3, normal motor function, normal sensory function, no focal deficits noted. [] Psychologic: Affect normal, judgement normal, mood normal. [] Current Patient Data Vital Signs Vital Signs Date Time Temp Pulse Resp B/P (MAP) Pulse Ox O2 Delivery O2 Flow Rate FiO2 04/19/19 20:06 98.0 65 18 59/33 (42) 95 Room Air EKG EKG [] Radiology/Procedures Radiology/Procedures [] Course & Med Decision Making Course & Med Decision Making Pertinent Labs and Imaging studies reviewed. (See chart for details) The patient's initial blood pressure had a map of 62. She is awake and talking. I will start him a liter normal saline. Her labs, urinalysis, and stool testing is pending. The patient does have a history of being hypotensive with ER visits in the past. The patient's labs show anemia, elevated creatinine 1.6, her baseline appears to be 1.1. The patient is beginning to respond to fluids as her pressure has improved slightly. I spoke with Dr. Moreland and he has accepted her for admission. [] Dragon Disclaimer Dragon Disclaimer This electronic medical record was generated, in whole or in part, using a voice recognition dictation system. Departure Departure: Impression: Primary Impression: Syncope Additional Impressions: Diarrhea Hypotension Dehydration Disposition: 09 ADMITTED INPATIENT Admitting Physician: Jimenez Moreland Condition: GUARDED Referrals: JIMENEZ MORELAND MD (PCP) Problem Qualifiers Primary Impression: Syncope Syncope type: unspecified Qualified Codes: R55 - Syncope and collapse Additional Impressions: Diarrhea Diarrhea type: unspecified type Qualified Codes: R19.7 - Diarrhea, unspecified Hypotension Hypotension type: hypotension due to hypovolemia Qualified Codes: I95.89 - Other hypotension; E86.1 - Hypovolemia SABRINA DAMON DO Apr 19, 2019 20:44
[2019-04-19 20:59] LABS: BASO # 0.1 x10^3/uL (0.0-0.2); BASO % 1 % (0-3); EOS # 0.8 x10^3/uL (0.0-0.7); EOS % 6 % (0-3); HEMATOCRIT 31.6 % (36.0-47.0); HEMOGLOBIN 9.8 g/dL (12.0-15.5); LYMPH # 3.6 x10^3/uL (1.0-4.8); LYMPH % 27 % (24-48); MEAN CORPUSCULAR HEMOGLOBIN 28 pg (25-35); MEAN CORPUSCULAR HGB CONC 31 g/dL (31-37); MEAN CORPUSCULAR VOLUME 89 fL (79-100); MONO # 1.4 x10^3/uL (0.0-1.1); MONO % 10 % (0-9); NEUT # 7.3 x10^3uL (1.8-7.7); NEUT % 55 % (31-73); PLATELET COUNT 462 x10^3/uL (140-400); RED BLOOD COUNT 3.55 x10^6/uL (3.50-5.40); RED CELL DISTRIBUTION WIDTH 15.7 % (11.5-14.5); WHITE BLOOD COUNT 13.2 x10^3/uL (4.0-11.0)
[2019-04-19] MEDS ORDERED: LOPERAMIDE 2 MG CAPSULE PO ONE (21:00)
[2019-04-19 21:02] LABS: CALCIUM 8.6 mg/dL (8.5-10.1); CREATININE 1.6 mg/dL (0.6-1.0); GFR 31.6; POTASSIUM 5.1 mmol/L (3.5-5.1)
[2019-04-19 21:07] LABS: ALBUMIN/GLOBULIN RATIO 0.7 (1.0-1.7); TOTAL BILIRUBIN 0.2 mg/dL (0.2-1.0); TOTAL PROTEIN 7.6 g/dL (6.4-8.2)
[2019-04-19 21:18] LABS: BILIRUBIN,URINE NEG (NEG); CLARITY,URINE CLEAR; COLOR,URINE YELLOW; GLUCOSE,URINE 500 mg/dL (NEG)
[2019-04-19 21:19] LABS: BACTERIA,URINE FEW /HPF (0-FEW); NITRITE,URINE NEG (NEG); RBC,URINE 0 /HPF (0-2); SQUAMOUS EPITHELIAL CELL,UR OCC /LPF; UROBILINOGEN,URINE 0.2 mg/dL (0.2 mg/dL); WBC,URINE OCC /HPF (0-4); YEAST,URINE PRESENT /HPF
[2019-04-19] MEDS ORDERED: ONDANSETRON PF 4 MG/2 ML VIAL. IV PRN (23:00)
--- NOTE | 2019-04-19 23:15 | NUR ---
The patient, PAMELA CAIN, 73 y/o, F admitted by JAYMIE GE MD, was given written information regarding hospital policies, unit procedures and contact persons. Valuables were checked and logged. Call light in place. Will continue to monitor.
[2019-04-19] MEDS ORDERED: PIP/TAZO PER PHARMACY MC PRN (23:45)
[2019-04-19] MEDS ORDERED: VANCOMYCIN PER PHARMACY MC PRN (23:45)
[2019-04-19] MEDS ORDERED: ASPI-621 PO (23:53)
--- NOTE | 2019-04-19 23:55 | NUR ---
Dr. Moreland notified of low BP 89/48, elevated white count, and lactic acid. New orders received for IV fluids NS @100cc/hr, vanco and zosyn per pharmacy. Pt also c/o right lateral ankle pain from fall at home and migraine headache. PRN home meds resumed for pain and BLISS per MD.
[2019-04-20 00:14] VITALS: BP 89/48
[2019-04-20] MEDS: PIPERACILLIN/TAZOBACTAM 2.25 GM in IV NORMAL SALINE 50ML 50 ML IV SCH ×3 (00:30→11:31)
[2019-04-20] MEDS: ASA/APAP/CAFFEINE 250/250/65MG TABLET. PO PRN ×3 (00:42→21:52)
[2019-04-20] MEDS: rOPINIRole 0.5 MG TABLET. PO SCH ×2 (00:42→20:59)
[2019-04-20] MEDS: IV NORMAL SALINE 1,000ML 1,000 ML IV SCH ×3 (00:42→20:00)
[2019-04-20] MEDS: MIRTAZAPINE 15 MG TABLET PO SCH ×2 (00:43→20:59)
[2019-04-20] MEDS: NAPROXEN 500 MG TABLET PO SCH ×3 (00:43→20:59)
[2019-04-20] MEDS: carBAMazepine 200 MG TABLET PO SCH ×2 (00:43→21:00)
[2019-04-20] MEDS: clonazePAM 0.5 MG TABLET PO PRN (00:43)
[2019-04-20] MEDS ORDERED: VANCOMYCIN 1.5 GM in IV NORMAL SALINE 500ML 500 ML IV ONE (01:00)
--- NOTE | 2019-04-20 02:24 | NUR ---
Pharmacy Vancomycin Dosing Note S:Consulted to monitor and dose vancomycin started 04/20/19. O:PAMELA CAIN is a 73 year old F with Empiric, . Height: 4 feet, 9.5 inches Weight: 66.6 kg [place] Body Weight: 39.75 Adjusted Body Weight: 50.49 Dosing Weight: Actual Other Antibiotics: ZOSYN 2.25 GM Q6H LABS: Last BUN: 37 Last Creatinine: 1.6 Creatinine Clearance: 26 Last WBC: 13.2 Last Procalcitonin: Tmax (past 24 hours): Microbiology: I/O: Drug Levels: Last level: on at Last dose given 04/20/19 at 0200 Vancomycin Dosing: Loading Dose: 1500 mg x1 Dosing Weight: Actual Target Trough: 10-20 A: Based on: WT AND CRCL P: 1. Begin Vancomycin 1000 mg IV q24h 2. Follow up Trough level on 04/22/19 at 0130 3. Pharmacy will continue to monitor, follow and adjust therapy as needed. CHARLIE HERNANDEZ RPH, 04/20/19223 Signed: 04/20/19 at 022 by CHARLIE HERNANDEZ RPH PHA
[2019-04-20 03:16] VITALS: BP 102/49
[2019-04-20] MEDS: LACTOBACILLUS RHAMNOSUS GG 1 CAPSULE. PO SCH ×2 (08:37→21:00)
[2019-04-20 11:10] VITALS: BP 121/69
[2019-04-20] MEDS ORDERED: LOPERAMIDE 2 MG CAPSULE PO PRN (11:15)
[2019-04-20] MEDS ORDERED: FUROSEMIDE 20 MG TABLET PO PRN (11:15)
[2019-04-20] MEDS: IPRATRPIUM/ALBUTEROL 0.5/2.5MG 3 ML NEBU. NEB SCH ×3 (11:26→20:09)
[2019-04-20] MEDS ORDERED: INSULIN ASPART 6 UNIT SQ SCH (11:30)
[2019-04-20] MEDS: ASPIRIN 81 MG TAB.CHEW PO SCH (11:31)
[2019-04-20] MEDS: LIPASE/PROTEAS/AMYLAS 10/32/42 CAPSULE.DR. PO SCH ×2 (11:31→17:18)
[2019-04-20] MEDS: buPROPion SR 150 MG TABLET.SA PO SCH ×2 (11:31→20:59)
[2019-04-20] MEDS: FAMOTIDINE 20 MG TABLET PO SCH (11:31)
[2019-04-20] MEDS: DULoxetine HCL 60 MG CAPSULE.DR PO SCH ×2 (11:32→21:02)
[2019-04-20] MEDS: ATORVASTATIN CALCIUM 20 MG TABLET PO SCH (11:32)
[2019-04-20] MEDS: LISINOPRIL 5 MG TABLET. PO SCH (11:32)
[2019-04-20] MEDS: SPIRONOLACTONE 25 MG TABLET PO SCH (11:32)
[2019-04-20] MEDS: CYANOCOBALAMIN (VITAMIN B-12) 1,000 MCG TABLET. PO SCH (11:32)
[2019-04-20] MEDS: ASCORBIC ACID 500 MG TABLET PO SCH ×2 (11:32→21:00)
[2019-04-20] MEDS: CHOLECALCIFEROL (VITAMIN D3) 1,000 UNIT TABLET PO SCH (11:32)
[2019-04-20] MEDS: CETIRIZINE HCL 10 MG TABLET PO SCH (11:32)
[2019-04-20] MEDS: METOPROLOL SUCC 24HR ER 25 MG TAB.ER.24H. PO SCH (11:33)
[2019-04-20] MEDS: busPIRone 15 MG TABLET. PO SCH ×2 (11:39→21:00)
[2019-04-20] MEDS: MONTELUKAST 10 MG TABLET. PO SCH (11:39)
[2019-04-20] MEDS: MULTIVITAMIN with MINERAL TABLET. PO SCH (11:39)
[2019-04-20] MEDS: INSULIN LISPRO 300 UNITS/3 ML VIAL. SQ SCH ×2 (12:00→17:34)
--- NOTE | 2019-04-20 12:43 | HP ---
ADMIT DATE: 04/19/2019 HISTORY OF PRESENT ILLNESS: The patient with a history of abdominal hernias and possible bowel obstruction. The patient has been losing her bowels as well as becoming increasingly having syncopal episodes. The patient was feeling weak. Her blood pressure dropped down into the 50s, came in elevated lactic acid. The patient also has been having some diarrhea, but presently she denies any chest pain or shortness of breath. The patient has been trying to drink fluids, although she just has been having loose stools, which she is probably dehydrated and along with her other medications brought her systolic down into the 50s. The patient was initially seen and revived down in the Emergency Room. She was admitted for further evaluation and treatment of her syncope, hypotension, possible sepsis. PAST MEDICAL HISTORY: Tonsillectomy, heart attack, coronary stents in 10/2017, hypercholesterolemia, respiratory distress, pneumonia, home oxygen, sleep apnea, diverticulosis, hiatal hernias, abdominal surgery for umbilical hernia repair, obesity, GERD, hysterectomy, renal disease, UTIs, musculoskeletal disorders, diabetes, psychiatric problems with depression, anxiety, previous suicide attempt 25 years ago. Medical symptoms of tardive dyskinesia, blood disorders. The patient has splenectomy, seizure disorder. Influenza, pneumococcal all up-to-date. Pneumonia vaccines up-to-date. FAMILY HISTORY: Brother with polio. Mother and brother and sister with diabetes. Brother with stomach cancer, sister with breast cancer, father with hypertension, mother with gallbladder problems. Father, depression and coronary artery disease. ALLERGIES: THE PATIENT HAS ALLERGY TO GRAPEFRUIT, HYDROMORPHONE, METOCLOPRAMIDE, MORPHINE, DILANTIN, TRAZODONE, AND AMBIEN. HOME MEDICATIONS: Include that of Zyrtec, DuoNeb 4 times a day, Lipitor 10, omega 3, carvedilol 12.5, metoprolol 25, Norvasc 5, lisinopril 5, spironolactone, clonazepam 0.5, carbamazepine 200 mg, bupropion 150, duloxetine, Remeron 15 mg 2 at bedtime, nortriptyline 25 mg 2 capsules at bedtime, Abilify 2 mg, buspirone 1 b.i.d., Requip 1 mg at bedtime, furosemide 20, fluticasone propionate, loperamide, Zenpep, ranitidine 150, Protonix 40, insulin 6 units a.c. and Levemir, B12, ascorbic acid, multivitamin. SOCIAL HISTORY: Denies smoking, alcohol or drug use. REVIEW OF SYSTEMS: The patient denies any headaches, visual change, blurred vision, double vision. Does have shortness of breath and also problem with feeling lightheaded and passing out. The patient denies any chest pain, abdominal pain. Does have some nausea and loose stools, losing control of her bowels with diarrhea, no blood or mucus in them. Extremities, no clubbing or cyanosis. Neurologically baseline presently for her. PHYSICAL EXAMINATION: GENERAL: This is a very pleasant white female looking stated age. VITAL SIGNS: As noted, her initial blood pressure in the ER was 59/33, pulse of 65, afebrile, good oxygen saturation. However, she has come up to 120/70, respiratory rate 20, pulse 80, afebrile. HEENT: The patient's head was atraumatic, normocephalic. Eyes: PERRLA without jaundice. Mouth and throat were normal. NECK: Supple. No JVD, carotids bruits or thyromegaly. LUNGS: Diminished throughout, poor movement of air, but basically clear. CARDIOVASCULAR: Regular sinus rhythm. ABDOMEN: Soft, diffuse tenderness and has multiple ventral hernias. No rebounding or guarding. Positive bowel sounds, no hepatosplenomegaly. EXTREMITIES: No clubbing, cyanosis, nor edema. NEUROLOGIC: The patient was alert and oriented x 3. LABORATORY DATA: The patient's labs as noted were slightly off, did have an elevated lactic acid. White count 13, hemoglobin 9.8 and hematocrit 31, platelets elevated. Otherwise, chemistries; 135, BUN and creatinine 37 and 1.6, albumin low at 3. UA was unremarkable except for a high concentration in the patient. Otherwise, chest x-ray was unremarkable. IMPRESSION: Therefore of syncope, hypotension, possible sepsis, abdominal pain, ventral hernias, type 2 diabetes, morbid obesity, history of orthostatic hypotension, chronic kidney disease stage 3, moderate protein malnutrition, chronic diarrhea. PLAN: The patient will be hydrated with IV antibiotic therapy. C. diff. Monitor cardiac enzymes and make further evaluation as she progresses. Held back on some of her medications to help her get her blood pressure back up. JAYMIE GE MD DR: MAURIZIO/luis angel JOB#: [id number] / [id number]
[2019-04-20] MEDS: OMEGA-3 FATTY ACIDS/FISH OIL 1,000 MG CAPSULE. PO SCH ×2 (13:53→21:02)
[2019-04-20] MEDS: FLUTICASONE 50MCG/NASAL SPRAY 16GM BOTTLE. NS SCH (13:54)
[2019-04-20] MEDS: ARIPiprazole 2 MG TABLET PO SCH (13:54)
[2019-04-20] MEDS: DICLOFENAC SODIUM 1% TOPICAL GEL 100GM TUBE. TP SCH ×3 (13:54→20:59)
[2019-04-20] MEDS: ZONISAMIDE 100 MG CAPSULE. PO SCH ×2 (13:55→21:01)
[2019-04-20 15:46] VITALS: BP 109/66
[2019-04-20] MEDS: VANCOMYCIN 125 MG/2.5 ML ORAL SOLUTION. PO SCH ×2 (17:00→21:00)
--- NOTE | 2019-04-20 18:11 | RAD ---
Exam: Acute abdominal series INDICATION: Abdominal pain TECHNIQUE: Frontal view of the chest with upright and supine views of the abdomen Comparisons: 04/10/2019 FINDINGS: The cardiomediastinal silhouette and pulmonary vessels are within normal limits. The lung and pleural spaces are clear. Air and stool are noted throughout the colon to the level of the colon in a nonobstructive bowel gas pattern. No free air. No suspicious osseous lesions or acute fractures. IMPRESSION: 1. No acute cardiopulmonary process. 2. Nonobstructive bowel gas pattern. Electronically signed by: Lexx Hagen MD (04/20/2019 6:08 PM) [id number]
[2019-04-20] MEDS: NORTRIPTYLINE 25 MG CAPSULE PO SCH (21:01)
[2019-04-20] MEDS: INSULIN GLARGINE SYRINGE. SQ SCH (21:06)
[2019-04-20 21:37] VITALS: BP 114/69
[2019-04-21] MEDS ORDERED: VANCOMYCIN 1 GM in IV NORMAL SALINE 250ML 250 ML IV SCH (02:00)
[2019-04-21] MEDS: IPRATRPIUM/ALBUTEROL 0.5/2.5MG 3 ML NEBU. NEB SCH ×4 (05:21→20:26)
[2019-04-21 05:58] VITALS: BP 130/72
[2019-04-21] MEDS: IV NORMAL SALINE 1,000ML 1,000 ML IV SCH ×2 (06:00→16:00)
[2019-04-21 07:36] LABS: BASO # 0.1 x10^3/uL (0.0-0.2); BASO % 1 % (0-3); EOS % 7 % (0-3); HEMATOCRIT 28.9 % (36.0-47.0); HEMOGLOBIN 9.1 g/dL (12.0-15.5); LYMPH # 4.6 x10^3/uL (1.0-4.8); LYMPH % 33 % (24-48); MEAN CORPUSCULAR HEMOGLOBIN 28 pg (25-35); MEAN CORPUSCULAR HGB CONC 32 g/dL (31-37); MEAN CORPUSCULAR VOLUME 89 fL (79-100); MONO # 1.2 x10^3/uL (0.0-1.1); MONO % 9 % (0-9); NEUT % 51 % (31-73); PLATELET COUNT 431 x10^3/uL (140-400); RED BLOOD COUNT 3.24 x10^6/uL (3.50-5.40); RED CELL DISTRIBUTION WIDTH 15.5 % (11.5-14.5); WHITE BLOOD COUNT 13.8 x10^3/uL (4.0-11.0)
[2019-04-21 07:43] LABS: CALCIUM 8.5 mg/dL (8.5-10.1); CREATININE 1.2 mg/dL (0.6-1.0); POTASSIUM 4.4 mmol/L (3.5-5.1)
--- NOTE | 2019-04-21 08:51 | EKG ---
[address] [address] Test Date: 2019-04-21 Test Time: 08:44:07 Pat Name: PAMELA CAIN Department: Room: 107 A Gender: F Mobile Sales Assistant: : 1945 Requested By: JAYMIE GE Order Number: [id number] Reading MD: Measurements Intervals [place] Rate: 83 P: 47 [place]: 190 QRS: -21 QRSD: 68 T: 113 QT: 374 QTc: 445 Interpretive Statements SINUS RHYTHM LEFTWARD AXIS CONSIDER LEFT VENTRICULAR HYPERTROPHY QRS(T) CONTOUR ABNORMALITY CONSISTENT WITH INFERIOR INFARCT PROBABLY OLD ST & T ABNORMALITY, CONSIDER HIGH LATERAL ISCHEMIA OR LEFT VENTRICULAR STRAIN ABNORMAL ECG
[2019-04-21] MEDS: PANTOPRAZOLE 40 MG TABLET. PO SCH ×2 (09:00→09:26)
[2019-04-21] MEDS: VANCOMYCIN 125 MG/2.5 ML ORAL SOLUTION. PO SCH ×4 (09:26→21:40)
[2019-04-21] MEDS: ATORVASTATIN CALCIUM 20 MG TABLET PO SCH (09:26)
[2019-04-21] MEDS: OMEGA-3 FATTY ACIDS/FISH OIL 1,000 MG CAPSULE. PO SCH ×3 (09:26→21:41)
[2019-04-21] MEDS: NAPROXEN 500 MG TABLET PO SCH ×2 (09:26→21:41)
[2019-04-21] MEDS: LIPASE/PROTEAS/AMYLAS 10/32/42 CAPSULE.DR. PO SCH ×3 (09:27→17:45)
[2019-04-21] MEDS: ASA/APAP/CAFFEINE 250/250/65MG TABLET. PO PRN ×2 (09:27→19:20)
[2019-04-21] MEDS: MULTIVITAMIN with MINERAL TABLET. PO SCH (09:27)
[2019-04-21] MEDS: DULoxetine HCL 60 MG CAPSULE.DR PO SCH ×2 (09:27→21:42)
[2019-04-21] MEDS: SPIRONOLACTONE 25 MG TABLET PO SCH (09:27)
[2019-04-21] MEDS: ASCORBIC ACID 500 MG TABLET PO SCH ×2 (09:27→21:42)
[2019-04-21] MEDS: LISINOPRIL 5 MG TABLET. PO SCH (09:28)
[2019-04-21] MEDS: METOPROLOL SUCC 24HR ER 25 MG TAB.ER.24H. PO SCH (09:28)
[2019-04-21] MEDS: ASPIRIN 81 MG TAB.CHEW PO SCH (09:29)
[2019-04-21] MEDS: CYANOCOBALAMIN (VITAMIN B-12) 1,000 MCG TABLET. PO SCH (09:29)
[2019-04-21] MEDS: busPIRone 15 MG TABLET. PO SCH ×2 (09:29→21:41)
[2019-04-21] MEDS: CETIRIZINE HCL 10 MG TABLET PO SCH (09:29)
[2019-04-21] MEDS: FAMOTIDINE 20 MG TABLET PO SCH (09:29)
[2019-04-21] MEDS: CHOLECALCIFEROL (VITAMIN D3) 1,000 UNIT TABLET PO SCH (09:29)
[2019-04-21] MEDS: MONTELUKAST 10 MG TABLET. PO SCH (09:29)
[2019-04-21] MEDS: buPROPion SR 150 MG TABLET.SA PO SCH ×2 (09:30→21:41)
[2019-04-21] MEDS: ZONISAMIDE 100 MG CAPSULE. PO SCH ×3 (09:30→21:43)
[2019-04-21] MEDS: ARIPiprazole 2 MG TABLET PO SCH (09:30)
[2019-04-21] MEDS: clonazePAM 0.5 MG TABLET PO PRN ×2 (09:31→21:42)
[2019-04-21] MEDS: FLUTICASONE 50MCG/NASAL SPRAY 16GM BOTTLE. NS SCH (09:31)
[2019-04-21] MEDS: INSULIN GLARGINE SYRINGE. SQ SCH ×2 (09:36→21:54)
[2019-04-21] MEDS: DICLOFENAC SODIUM 1% TOPICAL GEL 100GM TUBE. TP SCH ×4 (09:37→21:43)
[2019-04-21] MEDS: INSULIN LISPRO 300 UNITS/3 ML VIAL. SQ SCH ×3 (09:43→17:47)
--- NOTE | 2019-04-21 12:10 | PN ---
DATE: 04/21/2019 SUBJECTIVE: A 73-year-old female came in with syncope, sepsis, hypotension and elevated lactic acids, blood sugar also elevated, but better control. OBJECTIVE: VITAL SIGNS: The patient's blood pressure was in the 70s and 80s systolic, come up to 130/72, respiratory rate 18, pulse 82, afebrile. GENERAL: The patient is alert and oriented. LUNGS: Diminished, but clear. CARDIOVASCULAR: Stable. ABDOMEN: Soft, diffuse tenderness, no rebound or guarding. Positive bowel sounds, no hepatosplenomegaly was noted. The patient had positive C. difficile probably the source of her lactic acid. We will go ahead and continue to monitor her accordingly and give her vancomycin orally and seems to be improving with that combination of medications. Otherwise, she is resting fairly comfortable. Continue to monitor her accordingly. The patient will be monitored. IMPRESSION: Clostridium difficile colitis, diarrhea, sepsis, possible systemic inflammatory response syndrome and chronic kidney disease stage 3, type 2 diabetes, morbid obesity. PLAN: As above. JAYMIE GE MD DR: MAURIZIO/luis angel JOB#: [id number] / [id number]
--- NOTE | 2019-04-21 14:09 | NUR ---
Per RN record, pt had fall at home prior to admission. Pt would benefit from PT/OT eval and treat to ensure safe discharge disposition. Please write PT/OT eval and treat orders if you agree. Addendum: 04/21/19 at 1409 by NANCY PRINCE PT Amended: Links added.
[2019-04-21 15:54] VITALS: BP 142/74
[2019-04-21 21:08] VITALS: BP 122/67
[2019-04-21] MEDS: rOPINIRole 0.5 MG TABLET. PO SCH (21:40)
[2019-04-21] MEDS: MIRTAZAPINE 15 MG TABLET PO SCH (21:41)
[2019-04-21] MEDS: carBAMazepine 200 MG TABLET PO SCH (21:42)
[2019-04-21] MEDS: NORTRIPTYLINE 25 MG CAPSULE PO SCH (21:43)
[2019-04-22] MEDS: IV NORMAL SALINE 1,000ML 1,000 ML IV SCH (02:00)
[2019-04-22] MEDS: IPRATRPIUM/ALBUTEROL 0.5/2.5MG 3 ML NEBU. NEB SCH ×2 (05:17→09:47)
[2019-04-22 06:04] VITALS: BP 143/77
[2019-04-22] MEDS: VANCOMYCIN 125 MG/2.5 ML ORAL SOLUTION. PO SCH (08:19)
[2019-04-22] MEDS: FLUTICASONE 50MCG/NASAL SPRAY 16GM BOTTLE. NS SCH (08:19)
[2019-04-22] MEDS: DICLOFENAC SODIUM 1% TOPICAL GEL 100GM TUBE. TP SCH (08:20)
[2019-04-22] MEDS: LIPASE/PROTEAS/AMYLAS 10/32/42 CAPSULE.DR. PO SCH ×2 (08:21→12:30)
[2019-04-22] MEDS: METOPROLOL SUCC 24HR ER 25 MG TAB.ER.24H. PO SCH (08:22)
[2019-04-22] MEDS: PANTOPRAZOLE 40 MG TABLET. PO SCH (08:22)
[2019-04-22] MEDS: ASCORBIC ACID 500 MG TABLET PO SCH (08:22)
[2019-04-22] MEDS: LISINOPRIL 5 MG TABLET. PO SCH (08:22)
[2019-04-22] MEDS: CETIRIZINE HCL 10 MG TABLET PO SCH (08:22)
[2019-04-22] MEDS: ATORVASTATIN CALCIUM 20 MG TABLET PO SCH (08:23)
[2019-04-22] MEDS: buPROPion SR 150 MG TABLET.SA PO SCH (08:23)
[2019-04-22] MEDS: MULTIVITAMIN with MINERAL TABLET. PO SCH (08:23)
[2019-04-22] MEDS: MONTELUKAST 10 MG TABLET. PO SCH (08:23)
[2019-04-22] MEDS: CHOLECALCIFEROL (VITAMIN D3) 1,000 UNIT TABLET PO SCH (08:23)
[2019-04-22] MEDS: OMEGA-3 FATTY ACIDS/FISH OIL 1,000 MG CAPSULE. PO SCH (08:23)
[2019-04-22] MEDS: FAMOTIDINE 20 MG TABLET PO SCH (08:23)
[2019-04-22] MEDS: DULoxetine HCL 60 MG CAPSULE.DR PO SCH (08:23)
[2019-04-22] MEDS: CYANOCOBALAMIN (VITAMIN B-12) 1,000 MCG TABLET. PO SCH (08:23)
[2019-04-22] MEDS: ARIPiprazole 2 MG TABLET PO SCH (08:23)
[2019-04-22] MEDS: SPIRONOLACTONE 25 MG TABLET PO SCH (08:24)
[2019-04-22] MEDS: NAPROXEN 500 MG TABLET PO SCH (08:24)
[2019-04-22] MEDS: ASPIRIN 81 MG TAB.CHEW PO SCH (08:24)
[2019-04-22] MEDS: ZONISAMIDE 100 MG CAPSULE. PO SCH (08:24)
[2019-04-22] MEDS: busPIRone 15 MG TABLET. PO SCH (08:24)
--- NOTE | 2019-04-22 08:27 | NUR ---
IP:patient test + for c diff. Requires contact + precautions.
[2019-04-22] MEDS: INSULIN GLARGINE SYRINGE. SQ SCH (08:35)
[2019-04-22] MEDS: INSULIN LISPRO 300 UNITS/3 ML VIAL. SQ SCH ×2 (08:36→12:37)
[2019-04-22] MEDS ORDERED: VANC500V PO (08:43)
--- NOTE | 2019-04-22 09:04 | DS ---
DATE OF DISCHARGE: HOSPITAL COURSE: A 73-year-old female came in with abdominal pain. The patient was having problems also with extremely low blood pressure. Her systolic dropped down into the 50s. She had an elevated lactic acid. Technically, she had sepsis. She was started on piperacillin and vancomycin; however, she was also having diarrhea and then later on, we did a C. difficile, came back positive, took her off her IV antibiotics and put her on oral vancomycin. She tolerated that well, felt better. Blood pressure came back up. The patient's white count was slightly elevated. Her last blood pressure 140/77, respiratory rate 20, pulse 83, afebrile. The patient is alert and oriented. LUNGS: Diminished, but clear. ABDOMEN: Ventral hernias giving her any problems at the present time, so we will continue to monitor her accordingly as an outpatient. Continue on vancomycin. IMPRESSION: Clostridium difficile colitis, sepsis, hypotension, anemia of chronic disease, type 2 diabetes, morbid obesity, chronic kidney disease stage 3, moderate protein malnutrition. PLAN: The patient will be discharged home. Follow up as an outpatient. Diabetic diet, decreased activity. C. difficile precautions at home. Follow up in 7-10 days or sooner as needed. JAYMIE GE MD DR: MAURIZIO/luis angel JOB#: [id number] / [id number]
[2019-04-22 10:33] VITALS: BP 122/68
--- NOTE | 2019-04-22 13:21 | NUR ---
NSG NOTE; DISCHARGE VERBAL AND WRITTEN DISCHARGE INSTRUCTIONS GIVEN TO PT WITH VERBAL UNDERSTANDING WRITTEN RX X1 GIVEN TO PT DISCHARGED TO HOME AT 1318 VIA W/C ACCOMP BY
== END 2019-04-22 13:18 | disposition home or self-care (01) | DRG 871 ==
LOC: ER 20:04 → 1 SOUTH 21:31
PROVIDERS: ADMIT Family Medicine; ATTEND Family Medicine
DX: A41.9 Sepsis, unspecified organism (principal); N17.0 Acute kidney failure with tubular necrosis; A04.72 Enterocolitis due to Clostridium difficile, not specified as recurrent; E44.0 Moderate protein-calorie malnutrition; D63.8 Anemia in other chronic diseases classified elsewhere; Z68.31 Body mass index [BMI] 31.0-31.9, adult; E66.01 Morbid (severe) obesity due to excess calories; E78.00 Pure hypercholesterolemia, unspecified; E86.0 Dehydration; G40.909 Epilepsy, unspecified, not intractable, without status epilepticus; F32.9 Major depressive disorder, single episode, unspecified; F41.9 Anxiety disorder, unspecified; G47.30 Sleep apnea, unspecified; I95.1 Orthostatic hypotension; K21.9 Gastro-esophageal reflux disease without esophagitis; K52.9 Noninfective gastroenteritis and colitis, unspecified; K57.90 Diverticulosis of intestine, part unspecified, without perforation or abscess without bleeding; E86.1 Hypovolemia; N18.3 Chronic kidney disease, stage 3 (moderate); E11.22 Type 2 diabetes mellitus with diabetic chronic kidney disease; K43.9 Ventral hernia without obstruction or gangrene; I25.2 Old myocardial infarction; Z80.0 Family history of malignant neoplasm of digestive organs; Z80.3 Family history of malignant neoplasm of breast; Z81.8 Family history of other mental and behavioral disorders; Z82.49 Family history of ischemic heart disease and other diseases of the circulatory system; Z83.3 Family history of diabetes mellitus; Z90.710 Acquired absence of both cervix and uterus; Z90.81 Acquired absence of spleen; Z91.5 Personal history of self-harm; Z95.5 Presence of coronary angioplasty implant and graft; Z87.01 Personal history of pneumonia (recurrent); Z90.49 Acquired absence of other specified parts of digestive tract; Z88.5 Allergy status to narcotic agent; Z88.8 Allergy status to other drugs, medicaments and biological substances
CPT/HCPCS: 36415; 74022; 80048; 80053; 81001; 82550; 82947; 83605; 84484; 85025; 87040; 87045; 87177; 87493; 93005; 94640; 96360; 96361; J1815; J2543; J3010; J3370; J7040; J7620; P9612; 99285-25; J7030

== ENCOUNTER 2019-05-18 17:54 | Observation (INO) | payer MEDICARE, OTHER ==
[~2019-05-18] VITALS: Ht 144.8 cm; Wt 67.6 kg
[~2019-05-18 17:54] MED LIST changes: -ROPI1TAB2 PO; +ROPI1TAB4 PO; +VANC500V PO
--- NOTE | 2019-05-18 18:12 | EKG ---
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
[2019-05-18] MEDS ORDERED: PROCHLORPERAZINE 10 MG/2 ML VIAL. IV ONE (18:15)
[2019-05-18] MEDS ORDERED: diphenhydrAMINE 50 MG/ML VIAL IVP ONE (18:15)
[2019-05-18] MEDS ORDERED: KETOROLAC 30 MG/ML VIAL. IVP ONE (18:15)
[2019-05-18] MEDS ORDERED: ASPIRIN 81 MG TAB.CHEW PO ONE (18:15)
--- NOTE | 2019-05-18 18:23 | PHYS DOC ---
Past History Past Medical History: Anemia, Depression, Diabetes, High Cholesterol, AR, Renal Disease, Other Additional Past Medical Histor: tardive dysk, renal insuff; morbid obesity; hyperuricemia; small bowel obst Past Surgical History: Cholecystectomy, Hysterectomy, Other Additional Past Surgical Histo: splenectomy Smoking: Non-smoker Alcohol Use: None Drug Use: None Adult General Chief Complaint Chief Complaint: CHEST PAIN HPI HPI Patient is a 73-year-old female with past medical history hypertension diabetes hyperlipidemia anxiety depression and migraine headaches and coronary artery disease status post stents 2. She states onset of migraine today around 1500 hrs. Migrated is in its typical location frontal region and associated with her normal symptoms of dizziness left earache and nausea. Patient states she's used her home medications with no relief. Patient also complains of chest pain. Patient states chest pain started approximately 1.5 hours prior to arrival. Patient states she noted her heart racing. She states her chest discomfort was in her left chest and radiated to her back. Patient states pain has been constant since onset she described it as an aching and pinching sensation. Patient does states she notices some left arm numbness and tingling. Review of Systems Review of Systems Constitutional: Denies fever or chills [] Eyes: Denies change in visual acuity, redness, or eye pain [] HENT: Denies nasal congestion or sore throat [] Respiratory: Denies cough or shortness of breath [] Cardiovascular: No additional information not addressed in HPI [] GI: Denies abdominal pain, nausea, vomiting, bloody stools or diarrhea [] : Denies dysuria or hematuria [] Musculoskeletal: Denies back pain or joint pain [] Integument: Denies rash or skin lesions [] Neurologic: Denies headache, focal weakness or sensory changes [] Endocrine: Denies polyuria or polydipsia [] All other systems were reviewed and found to be within normal limits, except as documented in this note. Current Medications Current Medications Current Medications Medications (Trade) Dose Ordered Sig/Kristin Start Time Stop Time Status Last Admin Dose Admin Aspirin (Children'S Aspirin) 324 mg 1X ONCE 05/18/19 18:15 05/18/19 18:16 UNV Diphenhydramine HCl (Benadryl) 50 mg 1X ONCE 05/18/19 18:15 05/18/19 18:16 UNV Fentanyl Citrate (Fentanyl 2ml Vial) 50 mcg 1X ONCE 05/18/19 18:15 05/18/19 18:17 DC Ketorolac Tromethamine (Toradol 30mg Vial) 30 mg 1X ONCE 05/18/19 18:15 05/18/19 18:16 UNV Prochlorperazine Edisylate (Compazine) 10 mg 1X ONCE 05/18/19 18:15 05/18/19 18:16 UNV Allergies Allergies Allergies Coded Allergies Type Severity Reaction Last Updated Verified grapefruit Allergy Intermediate 04/19/19 Yes hydromorphone Allergy Intermediate 04/19/19 Yes metoclopramide Allergy Intermediate 04/19/19 Yes morphine Allergy Intermediate 04/19/19 Yes phenytoin Allergy Intermediate 04/19/19 Yes trazodone Allergy Intermediate 04/19/19 Yes zolpidem Allergy Intermediate 04/19/19 Yes Physical Exam Physical Exam Constitutional: Well developed, well nourished, no acute distress, non-toxic appearance. [] HENT: Normocephalic, atraumatic, bilateral external ears normal, oropharynx moist, no oral exudates, nose normal. [] Eyes: PERRLA, EOMI, conjunctiva normal, no discharge. [] Neck: Normal range of motion, no tenderness, supple, no stridor. [] Cardiovascular:Heart rate regular rhythm, no murmur [] Lungs & Thorax: Bilateral breath sounds clear to auscultation [] Abdomen: Bowel sounds normal, soft, no tenderness, no masses, no pulsatile masses. [] Skin: Warm, dry, no erythema, no rash. [] Back: No tenderness, no CVA tenderness. [] Extremities: No tenderness, no cyanosis, no clubbing, ROM intact, no edema. [] Neurologic: Alert and oriented X 3, normal motor function, normal sensory function, no focal deficits noted. [] Psychologic: Affect normal, judgement normal, mood normal. [] Current Patient Data Vital Signs Vital Signs Date Time Temp Pulse Resp B/P (MAP) Pulse Ox O2 Delivery O2 Flow Rate FiO2 05/18/19 18:09 112 20 148/83 (104) 95 EKG EKG EKG at 1805 heart rate 111. Patient sinus tachycardia patient does have ST changes V2 V3 no reciprocal changes.[] Radiology/Procedures Radiology/Procedures CXR- no acute abnormalities [] Course & Med Decision Making Course & Med Decision Making Pertinent Labs and Imaging studies reviewed. (See chart for details) []Patient was evaluated for chief complaint. Workup consisted of laboratory analysis radiologic imaging and EKG. Results reviewed and discussed with patient. Patient's migraine was treated with Toradol Benadryl and Compazine with improvement. 2000hrs-- headche and chest pain completely resolved. EKG compared to previous. Patient does have new changes in V2 V3. Patient will be admitted to Dr. Moreland for further evaluation and treatment. Dragon Disclaimer Dragon Disclaimer This electronic medical record was generated, in whole or in part, using a voice recognition dictation system. Departure Departure: Impression: Primary Impression: Chest pain Additional Impression: Migraine Disposition: ADMITTED INPATIENT Admitting Physician: Jimenez Moreland Condition: STABLE Referrals: JIMENEZ MORELAND MD (PCP) Problem Qualifiers ALMA JOSEPH DO May 18, 2019 18:23
[2019-05-18 18:35] LABS: BASO # 0.1 x10^3/uL (0.0-0.2); BASO % 1 % (0-3); EOS # 0.5 x10^3/uL (0.0-0.7); EOS % 4 % (0-3); HEMATOCRIT 32.2 % (36.0-47.0); HEMOGLOBIN 10.1 g/dL (12.0-15.5); LYMPH # 4.3 x10^3/uL (1.0-4.8); LYMPH % 30 % (24-48); MEAN CORPUSCULAR HEMOGLOBIN 28 pg (25-35); MEAN CORPUSCULAR HGB CONC 31 g/dL (31-37); MEAN CORPUSCULAR VOLUME 91 fL (79-100); MONO # 1.2 x10^3/uL (0.0-1.1); MONO % 8 % (0-9); NEUT # 8.2 x10^3uL (1.8-7.7); NEUT % 57 % (31-73); PLATELET COUNT 630 x10^3/uL (140-400); RED BLOOD COUNT 3.56 x10^6/uL (3.50-5.40); RED CELL DISTRIBUTION WIDTH 16.3 % (11.5-14.5); WHITE BLOOD COUNT 14.4 x10^3/uL (4.0-11.0)
--- NOTE | 2019-05-18 19:11 | RAD ---
Exam: Chest one view INDICATION: Chest pain TECHNIQUE: Frontal view of the chest Comparisons: 04/08/2019 FINDINGS: The cardiomediastinal silhouette and pulmonary vessels are within normal limits. The lung and pleural spaces are clear. IMPRESSION: No acute cardiopulmonary process. Electronically signed by: Lexx Hagen MD (05/18/2019 7:08 PM) [id number]
[2019-05-18 19:18] LABS: CREATININE 1.7 mg/dL (0.6-1.0); GFR 29.5; POTASSIUM 4.7 mmol/L (3.5-5.1)
[2019-05-18 19:24] LABS: ALBUMIN 3.3 g/dL (3.4-5.0); ALBUMIN/GLOBULIN RATIO 0.7 (1.0-1.7); TOTAL BILIRUBIN 0.2 mg/dL (0.2-1.0); TOTAL PROTEIN 8.3 g/dL (6.4-8.2)
[2019-05-18] MEDS ORDERED: NITROGLYCERIN SUBLINGUAL 0.4 MG BOTTLE OF 25. SL PRN (20:30)
[2019-05-18] MEDS ORDERED: ONDANSETRON PF 4 MG/2 ML VIAL. IV PRN (20:30)
[2019-05-18 21:39] VITALS: BP 126/64
[2019-05-18] MEDS ORDERED: FUROSEMIDE 20 MG TABLET PO PRN (21:45)
[2019-05-18] MEDS ORDERED: ASA/APAP/CAFFEINE 250/250/65MG TABLET. PO PRN (21:45)
[2019-05-18] MEDS ORDERED: LOPERAMIDE 2 MG CAPSULE PO PRN (21:45)
[2019-05-18] MEDS ORDERED: clonazePAM 0.5 MG TABLET PO PRN (21:45)
--- NOTE | 2019-05-18 21:49 | NUR ---
The patient, PAMELA CAIN, 73 y/o, F admitted by JAYMIE GE MD, was given written information regarding hospital policies, unit procedures and contact persons. Valuables were checked and logged. Call light at bedside. Blood sugar checked. Pt had not had anything to eat all night and requested a box lunch. pvc monitor applied. Will continue to monitor.
[2019-05-18] MEDS ORDERED: ATORVASTATIN CALCIUM 20 MG TABLET PO SCH (22:00)
[2019-05-18] MEDS: DICLOFENAC SODIUM 1% TOPICAL GEL 100GM TUBE. TP SCH (22:00)
[2019-05-18] MEDS: IPRATRPIUM/ALBUTEROL 0.5/2.5MG 3 ML NEBU. NEB SCH (22:00)
[2019-05-18] MEDS ORDERED: NORTRIPTYLINE 25 MG CAPSULE PO SCH (22:00)
[2019-05-18] MEDS ORDERED: rOPINIRole 1 MG TABLET. PO SCH (22:00)
[2019-05-18] MEDS ORDERED: carBAMazepine 200 MG TABLET PO SCH (22:00)
[2019-05-18] MEDS: CARVEDILOL 12.5 MG TABLET PO SCH (22:00)
[2019-05-18] MEDS: ZONISAMIDE 100 MG CAPSULE. PO SCH (22:00)
[2019-05-18] MEDS: busPIRone 15 MG TABLET. PO SCH (22:00)
[2019-05-18] MEDS ORDERED: MIRTAZAPINE 15 MG TABLET PO SCH (22:00)
[2019-05-18] MEDS: NAPROXEN 500 MG TABLET PO SCH (22:00)
[2019-05-18] MEDS: OMEGA-3 FATTY ACIDS/FISH OIL 1,000 MG CAPSULE. PO SCH (22:18)
[2019-05-18] MEDS: buPROPion SR 150 MG TABLET.SA PO SCH (22:19)
[2019-05-18] MEDS: ASCORBIC ACID 500 MG TABLET PO SCH (22:19)
[2019-05-18] MEDS: DULoxetine HCL 60 MG CAPSULE.DR PO SCH (22:19)
[2019-05-18] MEDS: INSULIN GLARGINE SYRINGE. SQ SCH (22:27)
[2019-05-19] MEDS: IPRATRPIUM/ALBUTEROL 0.5/2.5MG 3 ML NEBU. NEB SCH ×3 (05:35→15:19)
[2019-05-19 06:13] VITALS: BP 101/60
[2019-05-19] MEDS ORDERED: PANTOPRAZOLE 40 MG TABLET. PO SCH (07:30)
[2019-05-19] MEDS ORDERED: FLUTICASONE 50MCG/NASAL SPRAY 16GM BOTTLE. NS SCH (09:00)
[2019-05-19] MEDS ORDERED: MONTELUKAST 10 MG TABLET. PO SCH (09:00)
[2019-05-19] MEDS ORDERED: LISINOPRIL 5 MG TABLET. PO SCH (09:00)
[2019-05-19] MEDS ORDERED: FAMOTIDINE 20 MG TABLET PO SCH (09:00)
[2019-05-19] MEDS ORDERED: CETIRIZINE HCL 10 MG TABLET PO SCH (09:00)
[2019-05-19] MEDS ORDERED: CHOLECALCIFEROL (VITAMIN D3) 1,000 UNIT TABLET PO SCH (09:00)
[2019-05-19] MEDS ORDERED: ASPIRIN 81 MG TAB.CHEW PO SCH (09:00)
[2019-05-19] MEDS ORDERED: ARIPiprazole 2 MG TABLET PO SCH (09:00)
[2019-05-19] MEDS ORDERED: METOPROLOL SUCC 24HR ER 25 MG TAB.ER.24H. PO SCH (09:00)
[2019-05-19] MEDS ORDERED: MULTIVITAMIN with MINERAL TABLET. PO SCH (09:00)
[2019-05-19] MEDS ORDERED: amLODIPine BESYLATE 5 MG TABLET PO SCH (09:00)
[2019-05-19] MEDS ORDERED: CYANOCOBALAMIN (VITAMIN B-12) 1,000 MCG TABLET. PO SCH (09:00)
[2019-05-19] MEDS ORDERED: SPIRONOLACTONE 25 MG TABLET PO SCH (09:00)
[2019-05-19] MEDS: ASCORBIC ACID 500 MG TABLET PO SCH (09:10)
[2019-05-19] MEDS: DULoxetine HCL 60 MG CAPSULE.DR PO SCH (09:11)
[2019-05-19] MEDS: buPROPion SR 150 MG TABLET.SA PO SCH (09:11)
[2019-05-19] MEDS: OMEGA-3 FATTY ACIDS/FISH OIL 1,000 MG CAPSULE. PO SCH ×2 (09:11→14:23)
[2019-05-19] MEDS: CARVEDILOL 12.5 MG TABLET PO SCH (09:12)
[2019-05-19] MEDS: LIPASE/PROTEAS/AMYLAS 10/32/42 CAPSULE.DR. PO SCH ×2 (09:13→12:56)
[2019-05-19] MEDS: INSULIN LISPRO 300 UNITS/3 ML VIAL. SQ SCH ×2 (09:31→12:00)
[2019-05-19] MEDS: busPIRone 15 MG TABLET. PO SCH (09:33)
[2019-05-19] MEDS: NAPROXEN 500 MG TABLET PO SCH (09:35)
[2019-05-19] MEDS: DICLOFENAC SODIUM 1% TOPICAL GEL 100GM TUBE. TP SCH ×2 (09:36→13:00)
[2019-05-19] MEDS: INSULIN GLARGINE SYRINGE. SQ SCH (09:36)
[2019-05-19] MEDS: ZONISAMIDE 100 MG CAPSULE. PO SCH ×2 (09:36→14:23)
[2019-05-19] MEDS ORDERED: IV NORMAL SALINE 1,000ML 1,000 ML IV SCH (09:45)
[2019-05-19] MEDS ORDERED: CLOPIDOGREL BISULFATE 75 MG TABLET PO ONE (09:45)
[2019-05-19] MEDS ORDERED: HEPARIN 25,000UTS/250ML PREMIX 250 ML IV PRN ×2 (09:45→10:30)
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
[2019-05-19] MEDS ORDERED: HEPARIN for IV BOLUS 10,000 UNIT/10 ML VIAL. IV ONE (10:30)
[2019-05-19] MEDS ORDERED: HEPARIN for IV BOLUS 10,000 UNIT/10 ML VIAL. IV PRN (10:30)
[2019-05-19 10:59] VITALS: BP 112/61
[2019-05-19] MEDS ORDERED: BUTALB/APAP/CAFEIN 50/325/40MG TABLET. PO PRN (11:00)
[2019-05-19 15:00] VITALS: BP 136/66
--- NOTE | 2019-05-19 15:34 | NUR ---
Pt resting in bed. Received Fioricet for a headache. Pt denies chest pain, but feels "pressure" to left chest. Received Plavix one time dose and Heparin drip started. Next PTT at 1751. Pt to transfer to [facility] for heart cath in the am.
--- NOTE | 2019-05-19 16:20 | NUR ---
Report given to Doroteo at [facility]. Pt being transferred to room 260.
--- NOTE | 2019-05-19 16:40 | EKG ---
[address] [address] Test Date: 2019-05-19 Test Time: 10:52:00 Pat Name: PAMELA CAIN Department: Room: [facility] 1 Gender: F Solutions Manager: NINA : 1945 Requested By: SHADI KENNEDY Order Number: [id number] Reading MD: Measurements Intervals [place] Rate: 88 P: 36 [place]: 186 QRS: -20 QRSD: 76 T: 78 QT: 366 QTc: 446 Interpretive Statements SINUS RHYTHM LEFTWARD AXIS QRS(T) CONTOUR ABNORMALITY CONSISTENT WITH INFERIOR INFARCT POSSIBLY RECENT ST & T ABNORMALITY, CONSIDER HIGH LATERAL ISCHEMIA OR LEFT VENTRICULAR STRAIN ABNORMAL ECG RI6.02 No previous ECG available for comparison
--- NOTE | 2019-05-19 16:52 | NUR ---
Pt transferred to [facility], room 260, via EMS. Spouse informed. Report given. Consents signed. IVF and Heparin drip infusing in route.
[2019-05-19] MEDS ORDERED: MIRTAZAPINE 30 MG TABLET PO SCH (21:00)
== END 2019-05-19 16:55 | disposition short-term general hospital (02) ==
LOC: ER 17:54 → ICU 21:28
PROVIDERS: ADMIT Family Medicine; ATTEND Family Medicine
DX: R07.89 Other chest pain (principal); I21.4 Non-ST elevation (NSTEMI) myocardial infarction; I25.110 Atherosclerotic heart disease of native coronary artery with unstable angina pectoris; I25.5 Ischemic cardiomyopathy; I10 Essential (primary) hypertension; E78.5 Hyperlipidemia, unspecified; E66.01 Morbid (severe) obesity due to excess calories; F32.9 Major depressive disorder, single episode, unspecified; E11.9 Type 2 diabetes mellitus without complications; I25.2 Old myocardial infarction; G43.909 Migraine, unspecified, not intractable, without status migrainosus; R42 Dizziness and giddiness; Z79.82 Long term (current) use of aspirin; Z79.899 Other long term (current) drug therapy; Z95.5 Presence of coronary angioplasty implant and graft; Z90.81 Acquired absence of spleen; Z90.710 Acquired absence of both cervix and uterus
CPT/HCPCS: 36415; 71045; 80053; 82947; 84484; 85025; 85610; 85730; 93005; 94640; 96361; 96365; 96366; 96375; 96376; 99285; G0378; J0780; J1200; J1644; J1815; J1885; G0379; J7030

== ENCOUNTER 2019-05-29 17:03 | Emergency (ER) | payer MEDICARE, OTHER ==
[~2019-05-29] VITALS: Ht 144.8 cm; Wt 67.6 kg
[2019-05-29] MEDS ORDERED: IV NORMAL SALINE 1,000ML 1,000 ML IV SCH (17:07)
--- NOTE | 2019-05-29 17:32 | PHYS DOC ---
Past History Past Medical History: Anemia, Depression, Diabetes, High Cholesterol, [place], Renal Disease, Other Additional Past Medical Histor: tardive dysk, renal insuff; morbid obesity; hyperuricemia; small bowel obst Past Surgical History: Cholecystectomy, Hysterectomy, Other Additional Past Surgical Histo: splenectomy Smoking: Non-smoker Alcohol Use: None Drug Use: None Adult General Chief Complaint Chief Complaint: ABDOMINAL PAIN [facility] HPI Patient is a 73-year-old female who presents with complaint of abdominal pain f or the last 24 hours. Patient states that she has developed nausea and vomiting over the last couple of hours and states that she has had several episodes of vomiting. She states that she has been constipated but states that her last bowel movement was earlier today at about 2 PM. She states the stool was soft but not like diarrhea. She rates pain in her abdomen at a 7 out of 10 and states that it is in her lower abdomen.[] Review of Systems Review of Systems Constitutional: Denies fever or chills [] Respiratory: Denies cough or shortness of breath [] Cardiovascular: No additional information not addressed in HPI [] GI: Complains of lower abdominal pain with nausea and vomiting. Denies diarrhea [] Integument: Denies rash or skin lesions [] Neurologic: Denies headache, focal weakness or sensory changes [] All other systems were reviewed and found to be within normal limits, except as documented in this note. Allergies Allergies Allergies Coded Allergies Type Severity Reaction Last Updated Verified grapefruit Allergy Intermediate 04/19/19 Yes hydromorphone Allergy Intermediate 04/19/19 Yes metoclopramide Allergy Intermediate 04/19/19 Yes morphine Allergy Intermediate 04/19/19 Yes phenytoin Allergy Intermediate 04/19/19 Yes trazodone Allergy Intermediate 04/19/19 Yes zolpidem Allergy Intermediate 04/19/19 Yes Physical Exam Physical Exam Constitutional: Well developed, well nourished, no acute distress, non-toxic appearance. [] HENT: Normocephalic, atraumatic, bilateral external ears normal, oropharynx moist, no oral exudates, nose normal. [] Eyes: PERRLA, EOMI, conjunctiva normal, no discharge. [] Neck: Normal range of motion, no tenderness, supple, no stridor. [] Cardiovascular: Regular rate and rhythm[] Lungs & Thorax: Bilateral breath sounds clear to auscultation [] Abdomen: Bowel sounds normal, soft, with lower abdominal tenderness. [] Skin: Warm, dry, no erythema, no rash. [] Extremities: No tenderness, no cyanosis, no clubbing, ROM intact. [] Neurologic: Alert and oriented X 3, no focal deficits noted. [] EKG EKG EKG demonstrates sinus tachycardia with a rate of 102. There are significant ST segment elevations noted in V2 through V5 consistent with anterior wall STEMI.[] Radiology/Procedures Radiology/Procedures [] Course & Med Decision Making Course & Med Decision Making Pertinent Labs and Imaging studies reviewed. (See chart for details) Patient moved to room upon arrival was evaluated by ER medical staff after which an IV was established and blood work was drawn. Upon reviewing EKG, image was sent to Dr. Casey who had completed a heart catheter just last week. He has reviewed today's EKG and compared it with last week's EKG and states that it does look worse. He is requesting the patient be transferred to [place] and will communicate findings with Dr. Medrano. I have communicated plan with Dr. Power who will accept patient in transfer. Dragon Disclaimer Dragon Disclaimer This electronic medical record was generated, in whole or in part, using a voice recognition dictation system. Departure Departure: Impression: Primary Impression: STEMI (ST elevation myocardial infarction) Disposition: [address] [facility] Admitting Physician: Domonique Power Condition: IMPROVED Referrals: JAYMIE GE MD (PCP) Problem Qualifiers Primary Impression: STEMI (ST elevation myocardial infarction) Involved coronary artery: unspecified coronary artery Qualified Codes: I21.3 - ST elevation (STEMI) myocardial infarction of unspecified site BRET BATES Jr. DO May 29, 2019 17:32
[2019-05-29] MEDS ORDERED: IV NORMAL SALINE 1,000ML 1,000 ML IV ONE (17:45)
[2019-05-29] MEDS ORDERED: ONDANSETRON PF 4 MG/2 ML VIAL. IVP ONE (17:45)
[2019-05-29 17:52] VITALS: BP 131/65
[2019-05-29 18:02] LABS: BASO # 0.1 x10^3/uL (0.0-0.2); BASO % 0 % (0-3); EOS # 0.5 x10^3/uL (0.0-0.7); EOS % 3 % (0-3); HEMATOCRIT 32.1 % (36.0-47.0); HEMOGLOBIN 10.2 g/dL (12.0-15.5); LYMPH # 3.6 x10^3/uL (1.0-4.8); LYMPH % 18 % (24-48); MEAN CORPUSCULAR HEMOGLOBIN 30 pg (25-35); MEAN CORPUSCULAR HGB CONC 32 g/dL (31-37); MEAN CORPUSCULAR VOLUME 94 fL (79-100); MONO # 1.5 x10^3/uL (0.0-1.1); MONO % 8 % (0-9); NEUT # 14.1 x10^3uL (1.8-7.7); NEUT % 71 % (31-73); PLATELET COUNT 623 x10^3/uL (140-400); RED BLOOD COUNT 3.41 x10^6/uL (3.50-5.40); RED CELL DISTRIBUTION WIDTH 16.8 % (11.5-14.5); WHITE BLOOD COUNT 19.8 x10^3/uL (4.0-11.0)
--- NOTE | 2019-05-29 18:05 | EKG ---
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
[2019-05-29 18:09] LABS: CALCIUM 8.8 mg/dL (8.5-10.1); CREATININE 1.9 mg/dL (0.6-1.0); GFR 25.9; POTASSIUM 4.7 mmol/L (3.5-5.1)
[2019-05-29 18:15] LABS: ALBUMIN 3.2 g/dL (3.4-5.0); ALBUMIN/GLOBULIN RATIO 0.6 (1.0-1.7); TOTAL BILIRUBIN 0.4 mg/dL (0.2-1.0); TOTAL PROTEIN 8.6 g/dL (6.4-8.2)
[2019-05-29 18:46] LABS: % BANDS 10 % (0-9); % BASOS 0 % (0-3); % EOS 5 % (0-5); % LYMPHS 17 % (24-48); % MONOS 4 % (0-10); % MYELOS 1 % (0-0); % SEGS 63 % (35-66); NUCLEATED RBC 1; PLT ESTIMATE INCREASED (ADEQUATE)
[2019-05-29 18:47] LABS: ANISOCYTOSIS SLIGHT
== END 2019-05-29 17:54 | disposition short-term general hospital (02) ==
LOC: ER 17:03
DX: I21.3 ST elevation (STEMI) myocardial infarction of unspecified site (principal); R11.2 Nausea with vomiting, unspecified; E11.9 Type 2 diabetes mellitus without complications; E78.00 Pure hypercholesterolemia, unspecified; I25.2 Old myocardial infarction; E66.01 Morbid (severe) obesity due to excess calories; Z68.32 Body mass index [BMI] 32.0-32.9, adult; Z88.5 Allergy status to narcotic agent; Z88.8 Allergy status to other drugs, medicaments and biological substances; Z91.018 Allergy to other foods
CPT/HCPCS: 36415; 80053; 83690; 84484; 85007; 85025; 93005; 96361; 96374; 96375; 99285; J1265; J2405; J7030

== ENCOUNTER → 2019-06-20 | Outpatient (CLI) | payer MEDICARE, OTHER ==
[2019-05-29 17:52] VITALS: BP 131/65
--- NOTE | 2019-06-20 16:56 | RAD ---
Two-view chest dated 06/20/2019. Comparison made to 2019. CLINICAL INDICATION: Dyspnea and edema. FINDINGS: PA and lateral views obtained. Heart and mediastinal contours are stable. Lungs are clear. No consolidation or pleural effusion. No pneumothorax. There are prominent perihilar linear markings, unchanged. Spinal similar device in place. IMPRESSION: No acute radiographic abnormality. Stable findings compared to 05/18/2019. Electronically signed by: Cyrus Barrientos MD (06/20/2019 4:53 PM) [id number]
[2019-06-20 17:04] LABS: BASO # 0.1 x10^3/uL (0.0-0.2); BASO % 1 % (0-3); EOS # 0.6 x10^3/uL (0.0-0.7); EOS % 5 % (0-3); HEMATOCRIT 32.1 % (36.0-47.0); HEMOGLOBIN 10.2 g/dL (12.0-15.5); LYMPH # 3.8 x10^3/uL (1.0-4.8); LYMPH % 31 % (24-48); MEAN CORPUSCULAR HEMOGLOBIN 30 pg (25-35); MEAN CORPUSCULAR HGB CONC 32 g/dL (31-37); MEAN CORPUSCULAR VOLUME 95 fL (79-100); MONO # 1.1 x10^3/uL (0.0-1.1); MONO % 9 % (0-9); NEUT # 6.5 x10^3uL (1.8-7.7); NEUT % 54 % (31-73); PLATELET COUNT 528 x10^3/uL (140-400); RED BLOOD COUNT 3.39 x10^6/uL (3.50-5.40); RED CELL DISTRIBUTION WIDTH 16.7 % (11.5-14.5); WHITE BLOOD COUNT 12.1 x10^3/uL (4.0-11.0)
[2019-06-20 17:09] LABS: CALCIUM 10.4 mg/dL (8.5-10.1); CREATININE 1.5 mg/dL (0.6-1.0); POTASSIUM 4.6 mmol/L (3.5-5.1)
== END | disposition home or self-care (01) ==
LOC: LAB 16:23
PROVIDERS: ATTEND Family Medicine
DX: R06.09 Other forms of dyspnea (principal); R00.8 Other abnormalities of heart beat; R60.0 Localized edema
CPT/HCPCS: 36415; 71046; 80048; 85025

== ENCOUNTER → 2019-06-26 | Outpatient (CLI) | payer MEDICARE, OTHER ==
[2019-05-29 17:52] VITALS: BP 131/65
--- NOTE | 2019-06-26 14:14 | RAD ---
Examination: 3 views of the right knee 2 views of the right hip HISTORY: History of right hip, knee pain COMPARISON: None available FINDINGS: The alignment of the knee joint grossly appears unremarkable. The alignment of the right hip joint grossly appears unremarkable. There is mild joint space loss identified in the right hip joint and medial, lateral, patellofemoral compartments of the knee joint likely degenerative changes. Impression: No acute osseous findings. Electronically signed by: Gerald Rutherford MD (06/26/2019 2:11 PM) [id number]
== END | disposition home or self-care (01) ==
LOC: DXRAD 13:36
PROVIDERS: ATTEND Family Medicine
DX: M16.11 Unilateral primary osteoarthritis, right hip (principal); M17.11 Unilateral primary osteoarthritis, right knee
CPT/HCPCS: 73502; 73562

== ENCOUNTER 2020-05-26 14:48 | Inpatient (IN) | payer MEDICARE, OTHER ==
[~2020-05-26] VITALS: Ht 144.8 cm; Wt 62.5 kg
[~2020-05-26 14:48] MED LIST changes: +AMLO-186 PO; -AMLO5TAB10 PO; -ASCO500T2 PO; +ASCO500T4 PO; -CIPR500T PO; +CIPR500T2 PO; -LISI-338 PO; +LISI-517 PO; +METF-658 PO; -METF500T11 PO; +MIRT-37 PO; -MIRT15TA PO; -PANT40TA5 PO; +PANT40TA6 PO
[2020-05-26] MEDS ORDERED: DEXTROSE 50% 25 GM / 50ML DISP.SYRIN. IV ONE (15:00)
--- NOTE | 2020-05-26 15:26 | EKG ---
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
[2020-05-26 16:57] LABS: HEMATOCRIT 29.8 % (36.0-47.0); HEMOGLOBIN 9.2 g/dL (12.0-15.5); MEAN CORPUSCULAR HEMOGLOBIN 28 pg (25-35); MEAN CORPUSCULAR HGB CONC 31 g/dL (31-37); MEAN CORPUSCULAR VOLUME 92 fL (79-100); PLATELET COUNT 820 x10^3/uL (140-400); RED BLOOD COUNT 3.26 x10^6/uL (3.50-5.40); RED CELL DISTRIBUTION WIDTH 19.1 % (11.5-14.5); WHITE BLOOD COUNT 12.3 x10^3/uL (4.0-11.0)
[2020-05-26 16:58] LABS: BASO % 1 % (0-3); EOS % 1 % (0-3); LYMPH # 3.5 x10^3/uL (1.0-4.8); LYMPH % 29 % (24-48); MONO # 1.2 x10^3/uL (0.0-1.1); MONO % 10 % (0-9); NEUT # 7.3 x10^3uL (1.8-7.7); NEUT % 59 % (31-73)
[2020-05-26 16:59] LABS: BASO # 0.1 x10^3/uL (0.0-0.2); EOS # 0.1 x10^3/uL (0.0-0.7)
[2020-05-26 17:04] LABS: CALCIUM 8.6 mg/dL (8.5-10.1); CREATININE 1.8 mg/dL (0.6-1.0); GFR 27.5; POTASSIUM 4.3 mmol/L (3.5-5.1)
--- NOTE | 2020-05-26 17:04 | PHYS DOC ---
Past History Past Medical History: Anemia, Depression, Diabetes, High Cholesterol, [place], Renal Disease, Other Additional Past Medical Histor: tardive dysk, renal insuff; morbid obesity; hyperuricemia; small bowel obst Past Surgical History: Cholecystectomy, Hysterectomy, Other Additional Past Surgical Histo: splenectomy Smoking: Non-smoker Alcohol Use: None Drug Use: None General Adult EDM: Chief Complaint: HYPOGLYCEMIA HPI: HPI: Patient is a [age] year old [sex] who presents with [] Review of Systems: Review of Systems: Constitutional: Denies fever or chills Eyes: Denies change in visual acuity HENT: Denies nasal congestion or sore throat Respiratory: Denies cough or shortness of breath Cardiovascular: Denies chest pain or edema GI: Denies abdominal pain, nausea, vomiting, bloody stools or diarrhea : Denies dysuria Musculoskeletal: Denies back pain or joint pain Integument: Denies rash Neurologic: Denies headache, focal weakness or sensory changes Endocrine: Denies polyuria or polydipsia Lymphatic: Denies swollen glands Psychiatric: Denies depression or anxiety Current Medications: Current Meds: Current Medications Medications (Trade) Dose Ordered Sig/Kristin Start Time Stop Time Status Last Admin Dose Admin Dextrose (Dextrose 50%-Water Syringe) 25 gm 1X ONCE 05/26/20 15:00 05/26/20 15:01 DC 05/26/20 15:20 25 GM Allergies: Allergies: Allergies Coded Allergies Type Severity Reaction Last Updated Verified grapefruit Allergy Intermediate 04/19/19 Yes hydromorphone Allergy Intermediate 04/19/19 Yes metoclopramide Allergy Intermediate 04/19/19 Yes morphine Allergy Intermediate 04/19/19 Yes phenytoin Allergy Intermediate 04/19/19 Yes trazodone Allergy Intermediate 04/19/19 Yes zolpidem Allergy Intermediate 04/19/19 Yes Physical Exam: PE: Constitutional: Well developed, well nourished, no acute distress, non-toxic appearance. [] HENT: Normocephalic, atraumatic, bilateral external ears normal, oropharynx moist, no oral exudates, nose normal. [] Eyes: PERRLA, EOMI, conjunctiva normal, no discharge. [] Neck: Normal range of motion, no tenderness, supple, no stridor. [] Cardiovascular:Heart rate regular rhythm, no murmur [] Lungs & Thorax: Bilateral breath sounds clear to auscultation [] Abdomen: Bowel sounds normal, soft, no tenderness, no masses, no pulsatile masses. [] Skin: Warm, dry, no erythema, no rash. [] Back: No tenderness, no CVA tenderness. [] Extremities: No tenderness, no cyanosis, no clubbing, ROM intact, no edema. [] Neurologic: Alert and oriented X 3, normal motor function, normal sensory function, no focal deficits noted. [] Psychologic: Affect normal, judgement normal, mood normal. [] Current Patient Data: Labs: Laboratory Tests Test 05/26/20 15:58 White Blood Count 12.3 x10^3/uL (4.0-11.0) H Red Blood Count 3.26 x10^6/uL (3.50-5.40) L Hemoglobin 9.2 g/dL (12.0-15.5) L Hematocrit 29.8 % (36.0-47.0) L Mean Corpuscular Volume 92 fL (79-100) Mean Corpuscular Hemoglobin 28 pg (25-35) Mean Corpuscular Hemoglobin Concent 31 g/dL (31-37) Red Cell Distribution Width 19.1 % (11.5-14.5) H Platelet Count 820 x10^3/uL (140-400) H Neutrophils (%) (Auto) 59 % (31-73) Lymphocytes (%) (Auto) 29 % (24-48) Monocytes (%) (Auto) 10 % (0-9) H Eosinophils (%) (Auto) 1 % (0-3) Basophils (%) (Auto) 1 % (0-3) Neutrophils # (Auto) 7.3 x10^3uL (1.8-7.7) Lymphocytes # (Auto) 3.5 x10^3/uL (1.0-4.8) Monocytes # (Auto) 1.2 x10^3/uL (0.0-1.1) H Eosinophils # (Auto) 0.1 x10^3/uL (0.0-0.7) Basophils # (Auto) 0.1 x10^3/uL (0.0-0.2) Platelet Estimate Pending Creatine Kinase 23 U/L (26-192) L Creatine Kinase MB (Mass) < 0.5 ng/mL (0.0-3.6) Creatine Kinase MB Relative Index 2.2 % (0-4) Troponin I Quantitative < 0.017 ng/mL (0-0.055) Vital Signs: Vital Signs Date Time Temp Pulse Resp B/P (MAP) Pulse Ox O2 Delivery O2 Flow Rate FiO2 05/26/20 14:50 97.6 74 16 116/63 (80) 97 EKG: EKG: @1519 NSR at 79bpm, NO ST elevation, QRS 66ms, QT/QTc 388/451ms Radiology/Procedures: Radiology/Procedures: [] Heart Score: Risk Factors: Risk Factors: DM, Current or recent (<one month) smoker, HTN, HLP, family history of CAD, obesity. Risk Scores: Score 0 - 3: 2.5% MACE over next 6 weeks - Discharge Home Score 4 - 6: 20.3% MACE over next 6 weeks - Admit for Clinical Observation Score 7 - 10: 72.7% MACE over next 6 weeks - Early Invasive Strategies Course & Med Decision Making: Course & Med Decision Making Pertinent Labs and Imaging studies reviewed. (See chart for details) [] Dragon Disclaimer: Dragon Disclaimer: This electronic medical record was generated, in whole or in part, using a voice recognition dictation system. Departure Departure: Impression: Primary Impression: Hypoglycemia Additional Impression: UTI (urinary tract infection) Qualified Codes: N30.00 - Acute cystitis without hematuria Disposition: ADMITTED INPT THIS HOSP Admitting Physician: Jaymie Moreland Condition: STABLE Referrals: JAYMIE MORELAND MD (PCP) Scripts Diclofenac Sodium (VOLTAREN) 100 Gm Gel..gram. 1 MELISSA TP QID for pain, #1 EACH 3 Refills Prov: JAYMIE MORELAND MD 06/01/20 Furosemide (FUROSEMIDE) 20 Mg Tablet 20 MG PO PRN DAILY PRN for FLUID RETENTION, #30 TAB 1 Refill Prov: JAYMIE MORELAND MD 06/01/20 Pantoprazole Sodium (PANTOPRAZOLE SODIUM) 40 Mg Tablet.dr 40 MG PO DAILYAC for stomach for 30 Days, #30 TAB 3 Refills Prov: JAYMIE MORELAND MD 06/01/20 Metoprolol Succinate (METOPROLOL SUCCINATE ( XL )) 25 Mg Tab.er.24h 12.5 MG PO DAILY for heart for 30 Days, #15 TAB.SR 3 Refills Prov: JAYMIE MORELAND MD 06/01/20 Erythromycin Base (ERYTHROMYCIN) 250 Mg Tablet 250 MG PO TIDAC for gastropresis for 10 Days, #30 TAB Prov: JAYMIE MORELAND MD 06/01/20 Cetirizine Hcl (CETIRIZINE HCL) 10 Mg Tablet 10 MG PO DAILY for allergies for 30 Days, #30 TAB 4 Refills Prov: JAYMIE MORELAND MD 06/01/20 Critical Care Time Critical care time was 30 minutes which includes time at bedside, spent in discussion of patient's care with specialists and/or family members, with interpretation of laboratory and/or radiological studies and is exclusive of procedures. TIFFANIE KAPLAN DO May 26, 2020 17:04
[2020-05-26 17:10] LABS: ALBUMIN 2.2 g/dL (3.4-5.0); ALBUMIN/GLOBULIN RATIO 0.4 (1.0-1.7); MAGNESIUM 1.7 mg/dL (1.8-2.4); TOTAL BILIRUBIN 0.2 mg/dL (0.2-1.0); TOTAL PROTEIN 7.6 g/dL (6.4-8.2)
[2020-05-26 17:10] LABS: BILIRUBIN,URINE NEG (NEG); CLARITY,URINE CLOUDY; COLOR,URINE YELLOW; GLUCOSE,URINE NEG (NEG); NITRITE,URINE POS (NEG); UROBILINOGEN,URINE 0.2 mg/dL (0.2 mg/dL)
[2020-05-26 17:11] LABS: BACTERIA,URINE MOD /HPF (0-FEW); SQUAMOUS EPITHELIAL CELL,UR OCC /LPF; WBC,URINE >40 /HPF (0-4)
[2020-05-26] MEDS ORDERED: DEXTROSE 50% 25 GM / 50ML DISP.SYRIN. IV PRN (17:15)
[2020-05-26] MEDS ORDERED: IV DEXTROSE 5 %-0.45 % NACL 1,000 ML IV ONE (17:15)
[2020-05-26] MEDS: ONDANSETRON PF 4 MG/2 ML VIAL. IVP PRN (17:40)
[2020-05-26] MEDS ORDERED: PHENAZOPYRIDINE 200 MG TABLET. PO ONE (18:00)
[2020-05-26] MEDS ORDERED: IV NORMAL SALINE 50ML 50 ML ONE (18:07)
[2020-05-26] MEDS ORDERED: cefTRIAXone SODIUM 1 GM VIAL ONE (18:07)
[2020-05-26 19:30] VITALS: BP 103/60
[2020-05-26 21:41] LABS: % BASOS 1 % (0-3); % LYMPHS 25 % (24-48); % MONOS 10 % (0-10); % SEGS 64 % (35-66); ANISOCYTOSIS SLIGHT; PLT ESTIMATE INCREASED (ADEQUATE)
[2020-05-27] VITALS: BP 102/60
[2020-05-27] MEDS ORDERED: FUROSEMIDE 20 MG TABLET PO PRN (00:30)
[2020-05-27] MEDS ORDERED: IPRATRPIUM/ALBUTEROL 0.5/2.5MG 3 ML NEBU. ONE (05:23)
[2020-05-27] MEDS: IPRATRPIUM/ALBUTEROL 0.5/2.5MG 3 ML NEBU. NEB SCH ×2 (05:25→10:42)
[2020-05-27] MEDS: clonazePAM 0.5 MG TABLET PO PRN ×2 (05:57→19:27)
[2020-05-27] MEDS: METOPROLOL SUCC 24HR ER 25 MG TAB.ER.24H. PO SCH (08:33)
[2020-05-27] MEDS: amLODIPine BESYLATE 5 MG TABLET PO SCH ×2 (08:33→08:36)
[2020-05-27] MEDS: SPIRONOLACTONE 25 MG TABLET PO SCH (08:33)
[2020-05-27] MEDS: ASPIRIN CHEWABLE 81 MG TABLET. PO SCH (08:33)
[2020-05-27] MEDS: LISINOPRIL 5 MG TABLET. PO SCH ×2 (08:33→08:37)
[2020-05-27] MEDS: LIPASE/PROTEAS/AMYLAS 10/32/42 CAPSULE.DR. PO SCH ×3 (08:34→17:00)
[2020-05-27] MEDS: PANTOPRAZOLE 40 MG TABLET. PO SCH (08:34)
[2020-05-27] MEDS: DICLOFENAC SODIUM 1% TOPICAL GEL 100GM TUBE. TP SCH ×4 (08:34→19:28)
[2020-05-27] MEDS: MONTELUKAST 10 MG TABLET. PO SCH (08:34)
[2020-05-27] MEDS: ARIPiprazole 2 MG TABLET PO SCH (08:34)
[2020-05-27] MEDS: LOPERAMIDE 2 MG CAPSULE PO SCH (08:34)
[2020-05-27] MEDS: CETIRIZINE HCL 10 MG TABLET PO SCH (08:34)
[2020-05-27] MEDS: ONDANSETRON PF 4 MG/2 ML VIAL. IVP PRN (08:46)
[2020-05-27] MEDS ORDERED: NAPROXEN 500 MG TABLET PO SCH (09:00)
[2020-05-27] MEDS ORDERED: DULoxetine HCL 60 MG CAPSULE.DR PO SCH (09:00)
[2020-05-27 10:01] LABS: BASO # 0.1 x10^3/uL (0.0-0.2); BASO % 1 % (0-3); EOS # 0.2 x10^3/uL (0.0-0.7); EOS % 1 % (0-3); HEMATOCRIT 26.9 % (36.0-47.0); HEMOGLOBIN 8.5 g/dL (12.0-15.5); LYMPH # 4.3 x10^3/uL (1.0-4.8); LYMPH % 33 % (24-48); MEAN CORPUSCULAR HEMOGLOBIN 29 pg (25-35); MEAN CORPUSCULAR HGB CONC 32 g/dL (31-37); MEAN CORPUSCULAR VOLUME 90 fL (79-100); MONO # 1.7 x10^3/uL (0.0-1.1); MONO % 13 % (0-9); NEUT # 6.8 x10^3uL (1.8-7.7); NEUT % 52 % (31-73); PLATELET COUNT 816 x10^3/uL (140-400); RED BLOOD COUNT 2.98 x10^6/uL (3.50-5.40); RED CELL DISTRIBUTION WIDTH 19.5 % (11.5-14.5)
[2020-05-27 10:06] LABS: CALCIUM 8.5 mg/dL (8.5-10.1); CREATININE 1.3 mg/dL (0.6-1.0)
[2020-05-27 10:50] VITALS: BP 149/82
[2020-05-27] MEDS ORDERED: ROPI1TAB4 PO (12:03)
[2020-05-27] MEDS ORDERED: ONDA4TAB12 PO (12:03)
[2020-05-27] MEDS ORDERED: OXYC-325 PO (12:03)
[2020-05-27] MEDS ORDERED: METF10007 PO (12:03)
[2020-05-27] MEDS ORDERED: LACT1CAP19 PO (12:03)
[2020-05-27] MEDS ORDERED: EMPA10TA PO (12:03)
[2020-05-27] MEDS ORDERED: ALBU2.5V8 INH (12:03)
[2020-05-27] MEDS ORDERED: OMEP20CA16 PO (12:03)
[2020-05-27] MEDS ORDERED: GABA600T7 PO (12:03)
[2020-05-27] MEDS ORDERED: AMIT50TA PO (12:03)
[2020-05-27] MEDS ORDERED: METH-38 PO (12:03)
[2020-05-27 14:48] VITALS: BP 166/74
--- NOTE | 2020-05-27 15:47 | RAD ---
CT of the abdomen and pelvis without IV contrast for nausea of unknown etiology, umbilical pain. TECHNIQUE: Contiguous axial CT images are obtained from the apex of diaphragm to the pelvic floor. Sa gittal and coronal reformations are evaluated. FINDINGS: There is a groundglass infiltrate in the left lower lobe concerning for infectious or infla mmatory pneumonitis. There is a large hemangioma at L2. No suspicious osteoblastic or osteolytic bone lesions are identified. Multilevel degenerative changes are seen throughout the lower thoracic and l umbar spine. There are extensive multifocal coronary artery calcifications. Heart size is normal. Cassie luation of the abdominal organs is limited by lack of IV contrast. There has been a prior cholecystec marcos. No gross morphologic abnormalities are identified involving the liver, pancreas, bilateral adre nal glands, or bilateral kidneys. Spleen is absent. No free or loculated fluid collections are identi fied. No suspicious retroperitoneal or mesenteric adenopathy is seen. There is a large anterior abdom inal wall hernia nonincarcerated loops of small bowel. There are postsurgical changes of the anterior abdominal wall in this location. Evaluation of large and small bowel is limited by lack of enteric c ontrast. There is no evidence of bowel obstruction. There is suggestion of circumferential mucosal th ickening throughout a 10 to 15 cm segment of distal sigmoid colon, with perhaps subtle hyperemia in t his area that could signify very early colitis perhaps from diverticulitis. The urinary bladder is fl uid distended and grossly unremarkable. There is mild aortoiliac atherosclerosis. IMPRESSION: 1. 10 to 15 cm segment of wall thickening and subtle hyperemia involving the sigmoid colon concerning for early uncomplicated colitis, likely diverticulitis. 2. Focal groundglass opacity in the left lower lobe which could reflect active inflammatory infectiou s pneumonitis. 3. Large abdominal wall hernia containing nonincarcerated small and large bowel. 4. Absence of the spleen. 5. Other chronic changes as described. PQRS Compliance Statement: One or more of the following individualized dose reduction techniques were utilized for this examinat ion: 1. Automated exposure control 2. Adjustment of the mA and/or kV according to patient size 3. Use of iterative reconstruction technique Electronically signed by: Jacoby Hollins MD (05/27/2020 3:45 PM) [id number]
--- NOTE | 2020-05-27 17:56 | PN ---
DATE: 05/27/2020 SUBJECTIVE: The patient admitted through the Emergency Room, continues to have some nausea, vomiting, abdominal pain. The patient came in with extremely low blood sugar in the 20s. The patient had an elevated white count. She is also anemic at 8.5 and 27. Blood sugars have come up into the 240 range and she has been placed on a sliding scale. She also was noted to have greater than 40 white blood cells per high powered field, probably with her history consistent with that of a pyelonephritis. Also, CT scan performed by this physician showed diverticulitis. Also, she could have pneumonia. The patient otherwise will be placed on appropriate IV antibiotics for that. OBJECTIVE: VITAL SIGNS: Blood pressure 160/70, respiratory rate 18, pulse 107. Earlier today, blood pressure approximately 100/60, pulse little bit over 100. She is afebrile, room air 98%. LUNGS: Diminished, but clear. CARDIOVASCULAR: Regular sinus rhythm. ABDOMEN: Soft, but there is definite tenderness in the left lower quadrant area. No rebounding, no guarding. Positive bowel sounds. EXTREMITIES: No clubbing, cyanosis or edema. NEUROLOGIC: A lot of pain and nausea. Continue to monitor the patient accordingly, make further evaluation on her as indicated. IMPRESSION: Pyelonephritis, diverticulitis, change in mental status, severe hypoglycemia, recent history of non-ST elevation myocardial infarction, history of chronic obstructive pulmonary disease, tardive dyskinesia. PLAN: The patient continued to be monitored carefully with IV antibiotic therapy and make further evaluation on her as adjustments are indicated. She had a previous history of C. difficile colitis. JAYMIE GE MD DR: MAURZIIO/luis angel JOB#: [id number] / [id number]
[2020-05-27] MEDS: rOPINIRole 1 MG TABLET. PO SCH (19:27)
[2020-05-27] MEDS: MIRTAZAPINE 30 MG TABLET PO SCH (19:27)
[2020-05-27] MEDS: ASA/APAP/CAFFEINE 250/250/65MG TABLET. PO PRN (19:30)
[2020-05-27 20:47] VITALS: BP 114/68
[2020-05-27] MEDS ORDERED: MIRTAZAPINE 15 MG TABLET PO SCH (21:00)
[2020-05-27] MEDS ORDERED: NORTRIPTYLINE 25 MG CAPSULE PO SCH (21:00)
[2020-05-27] MEDS: metroNIDAZOLE 500 MG TABLET PO SCH (22:02)
[2020-05-27 23:23] VITALS: BP 122/74
[2020-05-28] MEDS: metroNIDAZOLE 500 MG TABLET PO SCH ×3 (05:27→19:55)
[2020-05-28 05:39] VITALS: BP 122/75
[2020-05-28] MEDS: CETIRIZINE HCL 10 MG TABLET PO SCH (08:20)
[2020-05-28] MEDS: SPIRONOLACTONE 25 MG TABLET PO SCH (08:20)
[2020-05-28] MEDS: LOPERAMIDE 2 MG CAPSULE PO SCH (08:20)
[2020-05-28] MEDS: LIPASE/PROTEAS/AMYLAS 10/32/42 CAPSULE.DR. PO SCH ×3 (08:20→17:00)
[2020-05-28] MEDS: PANTOPRAZOLE 40 MG TABLET. PO SCH (08:20)
[2020-05-28] MEDS: ASPIRIN CHEWABLE 81 MG TABLET. PO SCH (08:21)
[2020-05-28] MEDS: MONTELUKAST 10 MG TABLET. PO SCH (08:21)
[2020-05-28] MEDS: LISINOPRIL 5 MG TABLET. PO SCH (08:22)
[2020-05-28] MEDS: METOPROLOL SUCC 24HR ER 25 MG TAB.ER.24H. PO SCH (08:23)
[2020-05-28] MEDS: amLODIPine BESYLATE 5 MG TABLET PO SCH (08:24)
[2020-05-28] MEDS: ARIPiprazole 2 MG TABLET PO SCH (08:25)
[2020-05-28] MEDS ORDERED: GALC120P SQ (08:59)
[2020-05-28] MEDS: DICLOFENAC SODIUM 1% TOPICAL GEL 100GM TUBE. TP SCH ×4 (09:00→19:56)
--- NOTE | 2020-05-28 10:11 | EKG ---
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
[2020-05-28 11:21] VITALS: BP 144/80
[2020-05-28] MEDS: ASA/APAP/CAFFEINE 250/250/65MG TABLET. PO PRN ×2 (13:21→19:56)
[2020-05-28 15:48] VITALS: BP 93/56
[2020-05-28] MEDS: PROCHLORPERAZINE 10 MG/2 ML VIAL. IV PRN (17:21)
--- NOTE | 2020-05-28 18:56 | PN ---
DATE: SUBJECTIVE: A 74-year-old female in with pneumonia, community acquired as well as that of pyelonephritis, diverticulitis. The patient continues to make satisfactory progress, recent history of non-STEMI, but doing well. No chest pain. Does feel a little bit better today. OBJECTIVE: VITAL SIGNS: Blood pressure 144/80, respiratory rate 16, pulse 104, afebrile, 97% on room air. The patient's white count still slightly elevated; however, she is making good progress overall. Blood sugars are being controlled. She is a poorly controlled diabetic. We will continue to monitor the patient accordingly, make further evaluation on her as indicated. LUNGS: Otherwise, lungs clear. CARDIOVASCULAR: Regular sinus rhythm. ABDOMEN: Soft, diffuse tenderness in the left lower quadrant area. No rebound or guarding. Positive bowel sounds. IMPRESSION: Therefore of a pyelonephritis, diverticulitis, history of chronic obstructive pulmonary disease with infection, history of recent non-STEMI. PLAN: Continue with present drug regimen. JAYMIE GE MD DR: MAURIZIO/luis angel JOB#: [id number] / [id number]
[2020-05-28] MEDS: rOPINIRole 1 MG TABLET. PO SCH (19:55)
[2020-05-28] MEDS: MIRTAZAPINE 30 MG TABLET PO SCH (19:55)
[2020-05-28] MEDS: clonazePAM 0.5 MG TABLET PO PRN (19:55)
[2020-05-28] MEDS: LACTOBACILLUS RHAMNOSUS GG 1 CAPSULE. PO SCH (19:55)
[2020-05-28 19:59] VITALS: BP 98/56
[2020-05-28] MEDS ORDERED: LACTOBACILLUS RHAMNOSUS GG 1 CAPSULE. PO SCH (21:00)
[2020-05-28 22:25] VITALS: BP 113/67
[2020-05-29 05:36] VITALS: BP 120/72
[2020-05-29] MEDS: metroNIDAZOLE 500 MG TABLET PO SCH ×3 (06:23→21:30)
[2020-05-29] MEDS: amLODIPine BESYLATE 5 MG TABLET PO SCH (09:05)
[2020-05-29] MEDS: LISINOPRIL 5 MG TABLET. PO SCH (09:06)
[2020-05-29] MEDS: MONTELUKAST 10 MG TABLET. PO SCH (09:06)
[2020-05-29] MEDS: CETIRIZINE HCL 10 MG TABLET PO SCH (09:06)
[2020-05-29] MEDS: METOPROLOL SUCC 24HR ER 25 MG TAB.ER.24H. PO SCH (09:06)
[2020-05-29] MEDS: ARIPiprazole 2 MG TABLET PO SCH (09:07)
[2020-05-29] MEDS: LIPASE/PROTEAS/AMYLAS 10/32/42 CAPSULE.DR. PO SCH ×3 (09:07→17:11)
[2020-05-29] MEDS: ASPIRIN CHEWABLE 81 MG TABLET. PO SCH (09:07)
[2020-05-29] MEDS: LOPERAMIDE 2 MG CAPSULE PO SCH (09:07)
[2020-05-29] MEDS: SPIRONOLACTONE 25 MG TABLET PO SCH (09:07)
[2020-05-29] MEDS: PANTOPRAZOLE 40 MG TABLET. PO SCH (09:07)
[2020-05-29] MEDS: LACTOBACILLUS RHAMNOSUS GG 1 CAPSULE. PO SCH ×2 (09:07→21:13)
[2020-05-29] MEDS: DICLOFENAC SODIUM 1% TOPICAL GEL 100GM TUBE. TP SCH ×4 (09:10→21:23)
[2020-05-29] MEDS: IPRATRPIUM/ALBUTEROL 0.5/2.5MG 3 ML NEBU. NEB PRN ×2 (09:58→22:33)
[2020-05-29] MEDS: PROCHLORPERAZINE 10 MG/2 ML VIAL. IV PRN ×2 (10:05→15:21)
[2020-05-29 10:57] VITALS: BP 113/71
--- NOTE | 2020-05-29 12:07 | RAD ---
PA and lateral chest x-ray compared to similar exam dated June 192019 for shortness of air. FINDINGS: The lungs are clear. The cardiomediastinum is grossly unremarkable. There are degenerative changes throughout the thoracic spine. IMPRESSION: 1. No acute cardiopulmonary abnormality. Electronically signed by: Jacoby Hollins MD (05/29/2020 12:05 PM) [id number]
[2020-05-29] MEDS ORDERED: INSULIN LISPRO 300 UNITS/3 ML VIAL. SQ SCH (13:00)
[2020-05-29 15:33] VITALS: BP 125/70
[2020-05-29] MEDS: INSULIN LISPRO 300 UNITS/3 ML VIAL. SQ SCH (17:00)
[2020-05-29 19:31] VITALS: BP 137/70
[2020-05-29] MEDS: rOPINIRole 1 MG TABLET. PO SCH (21:13)
[2020-05-29] MEDS: MIRTAZAPINE 30 MG TABLET PO SCH (21:13)
[2020-05-29] MEDS: clonazePAM 0.5 MG TABLET PO PRN (21:13)
[2020-05-29] MEDS: INSULIN GLARGINE SYRINGE. SQ SCH (21:30)
--- NOTE | 2020-05-29 21:48 | PN ---
DATE: 05/29/2020 SUBJECTIVE: A 74-year-old female in with diverticulitis as well as pyelonephritis and possible early infectious process in the lung, has no complaints, says she feels a little better, but still some tenderness in that left lower quadrant. OBJECTIVE: VITAL SIGNS: Her pulse is still elevated, sometimes as high as 130 (NC), blood pressure 113/70, afebrile, 97% oxygen. GENERAL: The patient is alert and oriented. LUNGS: Diminished, but clear. CARDIOVASCULAR: Stable. ABDOMEN: Soft, diffuse tenderness in that left lower quadrant, but markedly improved showing good progress overall. We will continue to monitor. LABORATORY DATA: Blood sugars are being come back up. She also had severe hypoglycemia when she first came in and we will restart her on her insulin. Also, urine came back both Klebsiella pneumoniae and E. coli, for which she is on appropriate antibiotic therapy. IMPRESSION: Pyelonephritis, diverticulitis, history of chronic obstructive pulmonary disease with the infection, history of recent non-ST elevated myocardial infarction, urinary tract infection with Klebsiella pneumoniae and E. coli. PLAN: Continue to give her IV antibiotic therapy. Restart her on her insulin and bring the sugars down and continue to treat the diverticulitis and the other infectious processes as indicated. JAYMIE GE MD DR: MAURIZIO/luis angel JOB#: [id number] / [id number]
[2020-05-29 22:35] VITALS: BP 111/71
[2020-05-30 05:29] VITALS: BP 102/67
[2020-05-30] MEDS: metroNIDAZOLE 500 MG TABLET PO SCH ×3 (06:06→21:05)
[2020-05-30] MEDS: LIPASE/PROTEAS/AMYLAS 10/32/42 CAPSULE.DR. PO SCH ×3 (07:55→16:57)
[2020-05-30] MEDS: MONTELUKAST 10 MG TABLET. PO SCH (07:55)
[2020-05-30] MEDS: PROCHLORPERAZINE 10 MG/2 ML VIAL. IV PRN (07:55)
[2020-05-30] MEDS: ASPIRIN CHEWABLE 81 MG TABLET. PO SCH (07:56)
[2020-05-30] MEDS: LACTOBACILLUS RHAMNOSUS GG 1 CAPSULE. PO SCH ×2 (07:56→20:23)
[2020-05-30] MEDS: PANTOPRAZOLE 40 MG TABLET. PO SCH (07:56)
[2020-05-30] MEDS: LOPERAMIDE 2 MG CAPSULE PO SCH (07:56)
[2020-05-30] MEDS: CETIRIZINE HCL 10 MG TABLET PO SCH (07:56)
[2020-05-30] MEDS: SPIRONOLACTONE 25 MG TABLET PO SCH (07:56)
[2020-05-30] MEDS: clonazePAM 0.5 MG TABLET PO PRN ×2 (07:56→20:23)
[2020-05-30] MEDS: METOPROLOL SUCC 24HR ER 25 MG TAB.ER.24H. PO SCH (07:57)
[2020-05-30] MEDS: LISINOPRIL 5 MG TABLET. PO SCH (07:57)
[2020-05-30] MEDS: ARIPiprazole 2 MG TABLET PO SCH (07:57)
[2020-05-30] MEDS: INSULIN GLARGINE SYRINGE. SQ SCH ×2 (08:00→20:28)
[2020-05-30] MEDS: INSULIN LISPRO 300 UNITS/3 ML VIAL. SQ SCH ×3 (08:00→16:56)
[2020-05-30] MEDS: DICLOFENAC SODIUM 1% TOPICAL GEL 100GM TUBE. TP SCH ×4 (08:02→20:22)
[2020-05-30] MEDS: amLODIPine BESYLATE 5 MG TABLET PO SCH (08:02)
[2020-05-30 10:18] VITALS: BP 103/68
[2020-05-30] MEDS: ERYTHROMYCIN BASE 250 MG TABLET PO SCH ×2 (11:30→16:30)
[2020-05-30 15:59] VITALS: BP 94/55
[2020-05-30] MEDS: LORazepam 1 MG TABLET PO PRN (16:47)
[2020-05-30 19:00] VITALS: BP 108/68
[2020-05-30] MEDS: MIRTAZAPINE 30 MG TABLET PO SCH (20:23)
[2020-05-30] MEDS: rOPINIRole 1 MG TABLET. PO SCH (20:23)
[2020-05-30] MEDS: IPRATRPIUM/ALBUTEROL 0.5/2.5MG 3 ML NEBU. NEB PRN (21:45)
[2020-05-30 22:59] VITALS: BP 114/72
[2020-05-31 05:24] VITALS: BP 108/70
[2020-05-31] MEDS: metroNIDAZOLE 500 MG TABLET PO SCH ×3 (05:33→20:20)
[2020-05-31] MEDS: ERYTHROMYCIN BASE 250 MG TABLET PO SCH ×3 (07:30→16:53)
[2020-05-31] MEDS: clonazePAM 0.5 MG TABLET PO PRN ×2 (07:45→20:20)
[2020-05-31] MEDS: LIPASE/PROTEAS/AMYLAS 10/32/42 CAPSULE.DR. PO SCH ×3 (07:45→16:53)
[2020-05-31] MEDS: ASPIRIN CHEWABLE 81 MG TABLET. PO SCH (07:45)
[2020-05-31] MEDS: LACTOBACILLUS RHAMNOSUS GG 1 CAPSULE. PO SCH ×2 (07:46→20:20)
[2020-05-31] MEDS: MONTELUKAST 10 MG TABLET. PO SCH (07:46)
[2020-05-31] MEDS: METOPROLOL SUCC 24HR ER 25 MG TAB.ER.24H. PO SCH (07:46)
[2020-05-31] MEDS: PROCHLORPERAZINE 10 MG/2 ML VIAL. IV PRN (07:48)
[2020-05-31] MEDS: CETIRIZINE HCL 10 MG TABLET PO SCH (07:48)
[2020-05-31] MEDS: PANTOPRAZOLE 40 MG TABLET. PO SCH (07:48)
[2020-05-31] MEDS: LOPERAMIDE 2 MG CAPSULE PO SCH (07:48)
[2020-05-31] MEDS: ARIPiprazole 2 MG TABLET PO SCH (07:49)
[2020-05-31] MEDS: SPIRONOLACTONE 25 MG TABLET PO SCH (07:49)
[2020-05-31] MEDS: LISINOPRIL 5 MG TABLET. PO SCH (07:49)
[2020-05-31] MEDS: amLODIPine BESYLATE 5 MG TABLET PO SCH (07:49)
[2020-05-31] MEDS: DICLOFENAC SODIUM 1% TOPICAL GEL 100GM TUBE. TP SCH ×4 (07:50→20:21)
[2020-05-31] MEDS: INSULIN LISPRO 300 UNITS/3 ML VIAL. SQ SCH ×3 (07:52→16:57)
[2020-05-31] MEDS: INSULIN GLARGINE SYRINGE. SQ SCH ×2 (08:23→20:21)
[2020-05-31 11:02] VITALS: BP 106/70
--- NOTE | 2020-05-31 11:27 | PN ---
DATE: SUBJECTIVE: A 74-year-old female with diverticulitis, pyelonephritis. The patient was doing fairly well yesterday, but began to have problems this morning, did not feel very good. Still had marked tenderness in the left lower quadrant area. The patient had nausea and difficulty in controlling since SHE IS ALLERGIC TO REGLAN and Compazine does not seem to help her with the nausea. Probable gastroparesis from her diabetes. OBJECTIVE: VITAL SIGNS: Blood pressure 105/70, respiratory rate 20, pulse 105, afebrile. GENERAL: The patient is alert, but somewhat anxious, agitated, depressed affect. LUNGS: Diminished, but clear. CARDIOVASCULAR: Regular sinus rhythm. ABDOMEN: Soft, diffuse tenderness in that left lower quadrant. We will continue with antibiotics, give her some Ativan and try to bring her blood sugars under better control to see if this does not help her gastroparesis. IMPRESSION: Diverticulitis, pyelonephritis, gastroparesis, nausea, type 2 diabetes, morbid obesity, hypotension. PLAN: Continue to monitor carefully and make further adjustments per those results. JAYMIE GE MD DR: MAURIZIO/luis angel JOB#: [id number] / [id number]
[2020-05-31] MEDS: LORazepam 1 MG TABLET PO PRN (11:34)
[2020-05-31 13:50] LABS: CALCIUM 8.7 mg/dL (8.5-10.1); CREATININE 1.2 mg/dL (0.6-1.0); GFR 43.9; POTASSIUM 5.3 mmol/L (3.5-5.1)
[2020-05-31 15:48] VITALS: BP 148/82
[2020-05-31 19:58] VITALS: BP 119/76
[2020-05-31] MEDS: IPRATRPIUM/ALBUTEROL 0.5/2.5MG 3 ML NEBU. NEB PRN (20:08)
[2020-05-31] MEDS: rOPINIRole 1 MG TABLET. PO SCH (20:19)
[2020-05-31] MEDS: MIRTAZAPINE 30 MG TABLET PO SCH (20:20)
--- NOTE | 2020-05-31 22:22 | PDOC ---
Exam Note: [facility] Note: Please also refer to the separate dictated note~for this date of service dictated separately.~Patient seen individually. Discussed the patient with Nursing staff reviewed the chart.~Reviewed interim history and current functioning. Reviewed vital signs,~Labs/ Radiology~and current medications noted below. Continue current treatment with the changes noted in the dictated addendum note Assessment: Vital Signs/I&O: Vital Signs Date Time Temp Pulse Resp B/P (MAP) Pulse Ox O2 Delivery O2 Flow Rate FiO2 05/31/20 22:15 18 05/31/20 21:10 97 Room Air 05/31/20 19:58 98.0 110 119/76 (90) 05/31/20 05:24 2.0 I & O 05/30/20 05/30/20 05/31/20 15:00 23:00 07:00 Intake Total 360 ml 490 ml Balance 360 ml 490 ml Labs: Laboratory Tests Test 05/31/20 07:36 05/31/20 11:26 05/31/20 13:20 05/31/20 16:27 Glucose (Fingerstick) 200 mg/dL (70-99) H 350 mg/dL (70-99) H 229 mg/dL (70-99) H D-Dimer (Avis) 1.34 mg/L (0.00-0.50) H Sodium Level 130 mmol/L (136-145) L Potassium Level 5.3 mmol/L (3.5-5.1) H Chloride Level 99 mmol/L (98-107) Carbon Dioxide Level 21 mmol/L (21-32) Anion Gap 10 (6-14) Blood Urea Nitrogen 25 mg/dL (7-20) H Creatinine 1.2 mg/dL (0.6-1.0) H Estimated GFR (Cockcroft-Gault) 43.9 Glucose Level 339 mg/dL (70-99) H Calcium Level 8.7 mg/dL (8.5-10.1) Thyroid Stimulating Hormone (TSH) 5.241 uIU/mL (0.358-3.740) Test 05/31/20 19:02 Glucose (Fingerstick) 301 mg/dL (70-99) H Current Medications: Meds: Laboratory Tests Test 05/31/20 07:36 05/31/20 11:26 05/31/20 13:20 05/31/20 16:27 Glucose (Fingerstick) 200 mg/dL 350 mg/dL 229 mg/dL D-Dimer (Avis) 1.34 mg/L Sodium Level 130 mmol/L Potassium Level 5.3 mmol/L Chloride Level 99 mmol/L Carbon Dioxide Level 21 mmol/L Anion Gap 10 Blood Urea Nitrogen 25 mg/dL Creatinine 1.2 mg/dL Estimated GFR (Cockcroft-Gault) 43.9 Glucose Level 339 mg/dL Calcium Level 8.7 mg/dL Thyroid Stimulating Hormone (TSH) 5.241 uIU/mL Test 05/31/20 19:02 Glucose (Fingerstick) 301 mg/dL Current Medications Medications (Trade) Dose Ordered Sig/Kristin Route PRN Reason Start Time Stop Time Status Last Admin Dose Admin Dextrose (Dextrose 50%-Water Syringe) 25 gm 1X ONCE IV 05/26/20 15:00 05/26/20 15:01 DC 05/26/20 15:20 Ondansetron HCl (Zofran) 4 mg PRN Q4HRS PRN IVP NAUSEA/VOMITING 05/26/20 17:15 05/27/20 17:14 DC 05/27/20 08:46 Dextrose (Dextrose 50%-Water Syringe) 12.5 gm PRN Q15MIN PRN IV SEE COMMENTS 05/26/20 17:15 05/26/20 18:20 Dextrose/Sodium Chloride 1,000 ml @ 75 mls/hr 1X ONCE IV 05/26/20 17:15 05/27/20 06:34 DC 05/26/20 20:35 Phenazopyridine HCl (Pyridium) 200 mg 1X ONCE PO 05/26/20 18:00 05/26/20 18:01 DC 05/26/20 18:14 Ceftriaxone Sodium 1 gm/ Sodium Chloride 50 ml @ 100 mls/hr 1X ONCE IV 05/26/20 18:00 05/26/20 18:29 DC 05/26/20 18:24 Sodium Chloride 50 ml @ As Directed STK-MED ONCE .ROUTE 05/26/20 18:07 05/26/20 18:08 DC Ceftriaxone Sodium (Rocephin) 1 gm STK-MED ONCE .ROUTE 05/26/20 18:07 05/26/20 18:08 DC Amlodipine Besylate (Norvasc) 5 mg DAILY PO 05/27/20 09:00 05/29/20 09:05 Aripiprazole (Abilify) 2 mg DAILY PO 05/27/20 09:00 05/31/20 07:49 Aspirin (Aspirin Chewable) 81 mg DAILYWBKFT PO 05/27/20 08:00 05/31/20 07:45 Acetaminophen/ Aspirin/Caffeine (Excedrin Migraine) 1 tab PRN Q6HRS PRN PO MIGRAINE HEADACHE 05/27/20 00:30 05/28/20 19:56 Cetirizine HCl (ZyrTEC) 10 mg DAILY PO 05/27/20 09:00 05/31/20 07:48 Clonazepam (KlonoPIN) 0.5 mg PRN BID PRN PO ANXIETY / AGITATION 05/27/20 00:30 05/31/20 20:20 Diclofenac Sodium (Voltaren) 1 tigre QID TP 05/27/20 09:00 05/31/20 20:21 Duloxetine HCl (Cymbalta) 60 mg BID PO 05/27/20 09:00 05/27/20 11:20 DC 05/27/20 08:34 Furosemide (Lasix) 20 mg PRN DAILY PRN PO FLUID RETENTION 05/27/20 00:30 Albuterol/ Ipratropium (Duoneb) 3 ml RTQID NEB 05/27/20 08:00 05/27/20 13:13 DC 05/27/20 10:42 Amylase/Lipase/ Protease (Zenpep 10,000) 2 cap TIDWMEALS PO 05/27/20 08:00 05/31/20 16:53 Lisinopril (Prinivil) 5 mg DAILY PO 05/27/20 09:00 05/29/20 09:06 Loperamide HCl (Imodium) 2 mg DAILY PO 05/27/20 09:00 05/31/20 07:48 Metoprolol Succinate (Toprol Xl) 12.5 mg DAILY PO 05/27/20 09:00 05/31/20 07:46 Mirtazapine (Remeron) 30 mg QHS PO 05/27/20 21:00 05/27/20 00:31 DC Montelukast Sodium (Singulair) 10 mg DAILY PO 05/27/20 09:00 05/31/20 07:46 Naproxen (Naprosyn) 500 mg BID PO 05/27/20 09:00 05/27/20 11:20 DC 05/27/20 08:33 Nortriptyline HCl (Pamelor) 50 mg QHS PO 05/27/20 21:00 05/27/20 00:31 DC Pantoprazole Sodium (Protonix) 40 mg DAILYAC PO 05/27/20 07:30 05/31/20 07:48 Ropinirole HCl (Requip) 1 mg QHS PO 05/27/20 21:00 05/31/20 20:19 Spironolactone (Aldactone) 25 mg DAILY PO 05/27/20 09:00 05/31/20 07:49 Albuterol/ Ipratropium (Duoneb) 3 ml STK-MED ONCE .ROUTE 05/27/20 05:23 05/27/20 05:23 DC Prochlorperazine Edisylate (Compazine) 10 mg PRN Q6HRS PRN IV NAUSEA/VOMITING 05/27/20 11:15 05/31/20 07:48 Fentanyl Citrate (Fentanyl 2ml Vial) 25 mcg PRN Q2HR PRN IVP PAIN 05/27/20 11:15 05/28/20 09:32 DC 05/28/20 08:21 Mirtazapine (Remeron) 30 mg QHS PO 05/27/20 21:00 05/31/20 20:20 Albuterol/ Ipratropium (Duoneb) 3 ml PRN QID PRN NEB SOA/wheezing 05/27/20 14:00 05/31/20 20:08 Metronidazole (Flagyl) 500 mg Q8HRS PO 05/27/20 22:00 05/31/20 20:20 Levofloxacin/ Dextrose 100 ml @ 100 mls/hr 1X ONCE IV 05/27/20 17:00 05/27/20 17:59 DC 05/27/20 17:21 Levofloxacin/ Dextrose 50 ml @ 50 mls/hr Q24H IV 05/28/20 17:00 05/31/20 17:08 Fentanyl Citrate (Fentanyl 2ml Vial) 50 mcg PRN Q2HR PRN IVP PAIN 05/28/20 09:45 05/31/20 20:22 Lactobacillus Rhamnosus (Culturelle) 1 cap BID PO 05/28/20 21:00 05/31/20 20:20 Lactobacillus Rhamnosus (Culturelle) 1 cap BID PO 05/28/20 21:00 Cancel Insulin Human Lispro (HumaLOG) 6 units TIDWMEALS SQ 05/29/20 17:00 05/31/20 16:57 Insulin Glargine (Lantus Syringe) 36 unit BID SQ 05/29/20 21:00 05/31/20 20:21 Insulin Human Lispro (HumaLOG) 25 units 1X SQ 05/29/20 13:00 05/29/20 13:34 Erythromycin (E-Mycin) 250 mg TIDAC PO 05/30/20 11:30 05/31/20 16:53 Lorazepam (Ativan) 1 mg PRN Q8HRS PRN PO ANXIETY / AGITATION 05/30/20 15:30 05/31/20 11:34 I have reviewed the current psychotropics carefully including drug interactions. Risk benefit ratio favors no change other than as noted in my dictated progress note. Diagnosis: Problems: (1) Shortness of breath (2) Altered mental state (3) UTI (urinary tract infection) CAROL MITCHELL MD May 31, 2020 22:22
[2020-06-01] MEDS: LORazepam 1 MG TABLET PO PRN (01:54)
--- NOTE | 2020-06-01 02:40 | PN ---
DATE: SUBJECTIVE: A 74-year-old female came in with pyelonephritis, diverticulitis. The patient had multiple anxiety attacks. We consulted Dr. Elizondo for this. Patient otherwise is ____, has some problems with high anxiety, still having some discomfort in her left lower quadrant. Dr. Elizondo has been kind enough to review the patient for ____ psychiatric needs. OBJECTIVE: VITAL SIGNS: Blood pressure 120/76, respiratory rate of 20, pulse of 110, afebrile. GENERAL: The patient is alert and oriented. LUNGS: Diminished throughout. CARDIOVASCULAR: Regular sinus rhythm. ABDOMEN: Soft, nontender, except for the left lower quadrant, but she has improved on the IV antibiotic therapy. We will continue on such and hopefully ready for discharge here soon. Discussed with the family, situation and hopefully would be ready for discharge. Potassium on the high side at 5.3. We will adjust that. Sugars are still running high, but improved from where they were when she came in with hypoglycemia. IMPRESSION: Diverticulitis, pyelonephritis, hypoglycemia, hypothyroidism, chronic kidney disease stage 3b. JAYIME GE MD DR: MAURIZIO/luis angel JOB#: [id number] / [id number]
[2020-06-01] MEDS: metroNIDAZOLE 500 MG TABLET PO SCH (05:30)
[2020-06-01 06:08] VITALS: BP 125/79
[2020-06-01] MEDS: PROCHLORPERAZINE 10 MG/2 ML VIAL. IV PRN (08:11)
[2020-06-01] MEDS: ARIPiprazole 2 MG TABLET PO SCH (09:52)
[2020-06-01] MEDS: amLODIPine BESYLATE 5 MG TABLET PO SCH (09:52)
[2020-06-01] MEDS: ERYTHROMYCIN BASE 250 MG TABLET PO SCH (09:52)
[2020-06-01] MEDS: PANTOPRAZOLE 40 MG TABLET. PO SCH (09:52)
[2020-06-01] MEDS: DICLOFENAC SODIUM 1% TOPICAL GEL 100GM TUBE. TP SCH (09:52)
[2020-06-01] MEDS: ASPIRIN CHEWABLE 81 MG TABLET. PO SCH (09:53)
[2020-06-01] MEDS: LISINOPRIL 5 MG TABLET. PO SCH (09:53)
[2020-06-01] MEDS: LACTOBACILLUS RHAMNOSUS GG 1 CAPSULE. PO SCH (09:53)
[2020-06-01] MEDS: CETIRIZINE HCL 10 MG TABLET PO SCH (09:53)
[2020-06-01 09:54] VITALS: BP 125/79
[2020-06-01] MEDS: MONTELUKAST 10 MG TABLET. PO SCH (09:54)
[2020-06-01] MEDS: LIPASE/PROTEAS/AMYLAS 10/32/42 CAPSULE.DR. PO SCH (09:54)
[2020-06-01] MEDS: SPIRONOLACTONE 25 MG TABLET PO SCH (09:54)
[2020-06-01] MEDS: METOPROLOL SUCC 24HR ER 25 MG TAB.ER.24H. PO SCH (09:54)
[2020-06-01] MEDS: LOPERAMIDE 2 MG CAPSULE PO SCH (09:58)
[2020-06-01] MEDS: INSULIN LISPRO 300 UNITS/3 ML VIAL. SQ SCH (10:01)
[2020-06-01] MEDS: INSULIN GLARGINE SYRINGE. SQ SCH (10:01)
[2020-06-01] MEDS ORDERED: ERYT250T14 PO (10:22)
[2020-06-01] MEDS ORDERED: METO-239 PO (10:22)
[2020-06-01] MEDS ORDERED: DICL100G18 TP (10:22)
[2020-06-01] MEDS ORDERED: CETI10TA16 PO (10:22)
[2020-06-01] MEDS ORDERED: LEVO250T7 PO (10:22)
[2020-06-01] MEDS ORDERED: FURO20TA3 PO (10:22)
[2020-06-01] MEDS ORDERED: PANT40TA6 PO (10:22)
--- NOTE | 2020-06-01 10:25 | DISCH ---
HOME HEALTH DISCHARGE/MEDS DISCHARGE INFORMATION: Discharge Date: Jun 01, 2020 Final Diagnosis: Problems Medical Problems: (1) Hypoglycemia Status: Acute (2) UTI (urinary tract infection) Status: Acute Condition on Discharge: Stable CODE STATUS: Code Status: Full HOME HEALTH: Face to Face: I certify this patient is under my care and that I, or a nurse practitioner or physician's medical office assistant instructor working with me, had a face to face encounter that meets the physician face to face encounter requirements with this patient on 06/01/2020 Medical Condition(s): COPD, DM, Falls, Other (DIVERTICULITIS, HYPOGLYCEMI A,PYELONEPHRITIS) Nursing Home For: Assess Cardiopulm Status, Assess & Educate Safety, Assess/Skilled Observatio, Diabetic Care, Medication Management, Pain Management Physical Therapy For: Evalulation/Treatment Occupational Therapy For: Evaluation/Treatment Homebound Status Met By: Unsteady balance w/ amb,, Extreme weakness w/ amb. CERTIFICATION STATEMENT: Certification Statement: Based on the above finding, I certify that this patient is confined to the home and needs intermittent custodial care, physical therapy and/or speech therapy, or continues to need occupational therapy.~ This patient is under my care, and I have initiated the establishment of the plan of care.~ This patient will be followed by myself or a community physician who will periodically review the plan of care. DISCHARGE MEDICATIONS: Home Meds Active Scripts Lipase/Protease/Amylase (ZENPEP DR 10,000 UNITS CAPSULE) 1 Each Capsule., 2 CAP PO TIDWMEALS for stomach, #90 CAP 2 Refills Prov:JAYMIE GE MD 02/26/19 Reported Medications Galcanezumab-Gnlm (Emgality) 120 Mg/1 Ml Pen.injctr, 120 MG SQ 1X for MONTHLY FOR MIGRANES, EACH 05/28/20 Ropinirole Hcl (ROPINIROLE HCL) 1 Mg Tablet, 1 MG PO Q8HRS for RESTLESS LEGS, TAB 05/27/20 Oxycodone HCl/Acetaminophen (Percocet 5-325 mg Tablet) 1 Each Tablet, 1 EACH PO PRN Q4HRS PRN for PAIN, TAB 05/27/20 Omeprazole (OMEPRAZOLE) 20 Mg Capsule., 20 MG PO DAILY for GERD, CAP 05/27/20 Methocarbamol (ROBAXIN-750) 750 Mg Tablet, 750 MG PO PRN Q8HRS PRN for MUSCLE SPASM, TAB 05/27/20 Metformin Hcl (METFORMIN HCL) 1,000 Mg Tablet, 1000 MG PO BID for ANTI-DIABETIC, TAB 0 Refills 05/27/20 Lactobacillus Rhamnosus Gg (CULTURELLE) 1 Each Cap.sprink, 1 CAP PO DAILY for SUPPLEMENT for 30 Days, #30 CAP 0 Refills 05/27/20 Gabapentin (GABAPENTIN) 600 Mg Tablet, 100 MG PO TID for NEUROGENIC PAIN, TAB 05/27/20 Empagliflozin (Jardiance) 10 Mg Tablet, 10 MG PO DAILY for DM, TAB 05/27/20 Amitriptyline Hcl (AMITRIPTYLINE HCL) 50 Mg Tablet, 1 TAB PO QHS for SLEEP, #30 TAB 1 Refill 05/27/20 Albuterol Sulfate (PROAIR HFA INHALER) 8.5 Gm Hfa.aer.ad, 1 PUFF INH Q8HRS PRN for SHORTNESS OF BREATH, EACH 0 Refills 05/27/20 Ondansetron (ONDANSETRON ODT) 4 Mg Tab.rapdis, 1 TAB PO PRN Q6-8HRS for NAUSEA, #16 TAB 05/27/20 Aripiprazole (ABILIFY) 2 Mg Tablet, 1 TAB PO DAILY for MOOD STABILIZER LAST DOSE GIVEN: DATE: TODAY TIME: AM NEXT DOSE DUE: DATE: TOMORROW TIME: AM 02/24/19 Spironolactone (SPIRONOLACTONE) 25 Mg Tablet, 1 TAB PO DAILY for FLUID RETENTION LAST DOSE GIVEN: DATE: TODAY TIME: AM NEXT DOSE DUE: DATE: TOMORROW TIME: AM 02/24/19 Naproxen (NAPROXEN) 500 Mg Tablet, 1 TAB PO BID for PAIN LAST DOSE GIVEN: DATE: TODAY TIME: AM NEXT DOSE DUE: DATE: TODAY TIME: PM 02/24/19 Atorvastatin Calcium (ATORVASTATIN CALCIUM) 80 Mg Tablet, 1 TAB PO DAILY for HIGH CHOLESTEROL LAST DOSE GIVEN: DATE: TODAY TIME: AM NEXT DOSE DUE: DATE: TOMORROW TIME: AM 02/24/19 Duloxetine Hcl (DULOXETINE HCL) 60 Mg Capsule.dr, 60 MG PO BID for DPRESSION LAST DOSE GIVEN: DATE: TODAY TIME: AM NEXT DOSE DUE: DATE: TODAY TIME: PM 02/24/19 Amlodipine Besylate (NORVASC) 5 Mg Tablet, 1 TAB PO DAILY for HIGH BLOOD PRESSURE LAST DOSE GIVEN: DATE: TODAY TIME: AM NEXT DOSE DUE: DATE: TOMORROW TIME: AM 11/23/17 Zonisamide (ZONISAMIDE) 100 Mg Capsule, 100 MG PO TID for SEIZURES LAST DOSE GIVEN: DATE: TODAY TIME: AM NEXT DOSE DUE: DATE: TODAY TIME: AFTERNOON 11/23/17 Nortriptyline Hcl (NORTRIPTYLINE HCL) 25 Mg Capsule, 2 CAP PO QHS for SLEEP AIDE LAST DOSE GIVEN: DATE: YESTERDAY TIME: AT BEDTIME NEXT DOSE DUE: DATE: TODAY TIME: AT BEDTIME 11/23/17 Lisinopril (LISINOPRIL) 5 Mg Tablet, 1 TAB PO DAILY for HIGH BLOOD PRESSURE LAST DOSE GIVEN: DATE: TODAY TIME: AM NEXT DOSE DUE: DATE: TOMORROW TIME: AM 11/23/17 Bupropion Hcl (WELLBUTRIN SR) 150 Mg Tablet.er, 1 TAB PO BID for DEPRESSION LAST DOSE GIVEN: DATE: TODAY TIME: AM NEXT DOSE DUE: DATE: TODAY TIME: PM 11/23/17 Montelukast Sodium (MONTELUKAST SODIUM TABLET ) 10 Mg Tablet, 1 TAB PO DAILY for ALLERGIES LAST DOSE GIVEN: DATE: TODAY TIME: AM NEXT DOSE DUE: DATE: TOMORROW TIME: AM 11/23/17 Insulin Aspart (NOVOLOG FLEXPEN) 100 Unit/1 Ml Insuln.pen, 6 UNIT SQ TIDAC for HIGH BLOOD SUGAR-DIABETES LAST DOSE GIVEN: DATE: TODAY TIME: WITH LUNCH NEXT DOSE DUE: DATE: TODAY TIME: WITH DINNER 11/23/17 Insulin Detemir (Levemir Flextouch) 100 Unit/1 Ml Insuln.pen, 36 UNIT SQ BID for HIGH BLOOD SUGAR-DIABETES LAST DOSE GIVEN: DATE: TODAY TIME: AM NEXT DOSE DUE: DATE: TODAY TIME: PM 11/23/17 Carbamazepine (TEGRETOL) 200 Mg Tablet, 1 TAB PO HS for NERVE PAIN LAST DOSE GIVEN: DATE: YESTERDAY TIME: AT BEDTIME NEXT DOSE DUE: DATE: TODAY TIME: AT BEDTIME 11/23/17 Loperamide Hcl (LOPERAMIDE) 2 Mg Capsule, 2 MG PO AFTER EACH LOOSE STO for DIARRHEA NOT GIVEN IN THE HOSPITAL DO NOT TAKE THIS MEDICATION WHILE YOU HAVE C DIFF 11/23/17 Aspirin (ASPIRIN) 81 Mg Tab.chew, 81 MG PO DAILY for HEART HEALTH LAST DOSE GIVEN: DATE: TODAY TIME: AM NEXT DOSE DUE: DATE: TOMORROW TIME: AM 11/23/17 Discontinued Reported Medications Aspirin/Acetaminophen/Caffeine (EXCEDRIN EXTRA STRENGTH CAPLET) 1 Each Tablet, 1 EACH PO PRN Q6HRS PRN for MIGRAINE HEADACHE NOT GIVEN TODAY NEXT DOSE DUE: DATE: TODAY TIME: IF AND WHEN NEEDED 04/19/19 Ranitidine Hcl (RANITIDINE HCL) 150 Mg Tablet, 1 TAB PO DAILY for GERD LAST DOSE GIVEN: DATE: TODAY TIME: AM NEXT DOSE DUE: DATE: TOMORROW TIME: AM 02/24/19 [place]-3 Fatty Acids/Fish Oil (OMEGA 3 1,000 MG SOFTGEL) 1 Each Capsule, 1 CAP PO TID for SUPPLEMENT LAST DOSE GIVEN: DATE: TODAY TIME: AM NEXT DOSE DUE: DATE: TODAY TIME: AFTERNOON 02/24/19 Furosemide (FUROSEMIDE) 20 Mg Tablet, 1 TAB PO PRN DAILY PRN for FLUID RETENTION NOT GIVEN TODAY NEXT DOSE DUE: DATE: TODAY TIME: IF AND WHEN NEEDED 02/24/19 Cetirizine Hcl (CETIRIZINE HCL) 10 Mg Tablet, 1 TAB PO DAILY for ALLERGIES LAST DOSE GIVEN: DATE: TODAY TIME: AM NEXT DOSE DUE: DATE: TOMORROW TIME: AM 02/24/19 Buspirone Hcl (BUSPIRONE HCL) 15 Mg Tablet, 1 TAB PO BID for ANXIETY LAST DOSE GIVEN: DATE: TIME: AM NEXT DOSE DUE: DATE: TOMORROW TIME: AM 02/24/19 Cholecalciferol (Vitamin D3) (VITAMIN D3) 1,000 Unit Tablet, 1 TAB PO DAILY for SUPPLEMENT LAST DOSE GIVEN: DATE: TODAY TIME: AM NEXT DOSE DUE: DATE: TOMORROW TIME: AM 11/23/17 Clonazepam (KLONOPIN) 0.5 Mg Tablet, 1 TAB PO PRN BID PRN for ANXIETY / AGITATION NOT GIVEN TODAY NEXT DOSE DUE: DATE: TODAY TIME: IF AND WHEN NEEDED 11/23/17 Fluticasone Propionate (Flonase Allergy Relief) 9.9 Ml [place].susp, 2 SPRAYS NS DAILY for SINUS CONGESTION LAST DOSE GIVEN: DATE: TODAY TIME: AM NEXT DOSE DUE: DATE: TOMORROW TIME: AM 11/23/17 Pantoprazole Sodium (PANTOPRAZOLE SODIUM) 40 Mg Tablet.dr, 1 TAB PO DAILY for HEARTBURN LAST DOSE GIVEN: DATE: TIME: AM NEXT DOSE DUE: DATE: TOMORROW TIME: AM 11/23/17 Ascorbic Acid (VITAMIN C) 500 Mg Tablet, 500 MG PO BID for SUPPLEMENT LAST DOSE GIVEN: DATE: TIME: AM NEXT DOSE DUE: DATE: TIME: PM 11/23/17 Multivitamin (MULTI VITAMIN DAILY) 1 Each Tablet, 1 EACH PO DAILY for SUPPLEMENT LAST DOSE GIVEN: DATE: TIME: AM NEXT DOSE DUE: DATE: TOMORROW TIME: AM 11/23/17 Cyanocobalamin (Vitamin B-12) (VITAMIN B-12) 1,000 Mcg Tablet, 1 TAB PO DAILY for SUPPLEMENT LAST DOSE GIVEN: DATE: TIME: AM NEXT DOSE DUE: DATE: TOMORROW TIME: AM 11/23/17 Mirtazapine (REMERON) 15 Mg Tablet, 2 TAB PO QHS for MEMORY LAST DOSE GIVEN: DATE: YESTERDAY TIME: AT BEDTIME NEXT DOSE DUE: DATE: TIME: AT BEDTIME 11/23/17 Diclofenac Sodium (VOLTAREN) 100 Gm Gel..gram., 1 GM TP QID for KNEE PAIN LAST DOSE GIVEN: DATE: TIME: AM NEXT DOSE DUE: DATE: TODAY TIME: EARLY AFTERNOON 11/23/17 Ropinirole Hcl (REQUIP) 1 Mg Tablet, 1 TAB PO QHS for RESTLESS LEGS LAST DOSE GIVEN: DATE: YESTERDAY TIME: AT BEDTIME NEXT DOSE DUE: DATE: TIME: AT BEDTIME 11/23/17 Metoprolol Succinate (METOPROLOL SUCCINATE ( XL )) 25 Mg Tab.er.24h, 0.5 TAB PO DAILY for HIGH BLOOD PRESSURE LAST DOSE GIVEN: DATE: TIME: AM NEXT DOSE DUE: DATE: TOMORROW TIME: AM 11/23/17 Ipratropium/Albuterol Sulfate (DUONEB 0.5-3(2.5) MG/3 ML) 3 Ml Ampul.neb, 3 ML NEB QID for SHORTNESS OF BREATH LAST DOSE GIVEN: DATE: TIME: AM NEXT DOSE DUE: DATE: TODAY TIME: EARLY AFTERNOON 11/23/17 JAYMIE GE MD Jun 01, 2020 10:25
--- NOTE | 2020-06-02 23:03 | CONS ---
DATE OF CONSULTATION: 05/31/2020 PSYCHIATRIC CONSULTATION This is a late entry, date of service 05/31/2020 covers elements not covered in my initial note 05/31/2020. IDENTIFYING DATA: The patient is a 74-year-old female referred by Dr. Moreland on account of increased anxiety and marked insomnia. The patient was seen individually evening of 05/31/2020. Discussed with nursing staff, reviewed the chart. IDENTIFYING DATA: The patient was admitted through the Emergency Room on account of nausea, vomiting, abdominal pain. She was initially admitted with very low blood sugars, elevated white cell count, anemic at 8.5. While being medically stabilized, she has been extremely anxious, apprehensive, restless and I have been asked to consult to make recommendations from a psychiatric standpoint. CHIEF COMPLAINT: "I have always had anxiety. 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 She has been seen at the [facility] by Eloy Gold, nurse practitioner, but anxiety has only worsened over time. No clear psychotic symptoms, suicidal or homicidal ideation. No symptoms of bipolar disorder. She has been depressed, but feels anxiety overwhelms even the mood symptoms. PAST PSYCHIATRIC HISTORY: As above. PAST MEDICAL HISTORY: Positive for pyelonephritis, diverticulitis, confirmed on CT abdomen. Severe hypoglycemia, recent history of non-ST elevation SC, history of COPD, tardive dyskinesia. CURRENT PSYCHOTROPICS: Reviewed. DRUG ALLERGIES: ____, HYDROMORPHONE, METOCLOPRAMIDE, MORPHINE, PHENYTOIN, TRAZODONE, AMBIEN. FAMILY HISTORY: Noncontributory. SOCIAL HISTORY: The patient lives at home with her . No alcohol or drug abuse history is noted. MENTAL STATUS EXAMINATION: The patient is reasonably oriented. Speech is coherent, abstraction fair, computation somewhat impaired, language function intact. Mood and affect somewhat anxious. No suicidal or homicidal ideation. LABORATORY DATA: Reviewed. IMPRESSION: History of major depressive disorder versus bipolar disorder, depressed; anxiety disorder, unspecified. PLAN: From a psychiatric standpoint, the patient remains on Klonopin and BuSpar for anxiety, Cymbalta 60 mg twice a day. It may be best for the patient to return back to the [facility] for further adjustments in her psychotropics for anxiety including increase in BuSpar and consideration for low dose Seroquel split during the day 12.5 mg 9 a.m., 1:00 p.m., 5:00 p.m. She is also on Remeron [address] Moreland, thank you for the opportunity to participate in your patient's care. We will follow with you. CAROL MITCHELL MD DR: LALITHA/luis angel JOB#: [id number] / [id number]
--- NOTE | 2020-06-04 06:49 | EKG ---
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
--- NOTE | 2020-06-08 11:29 | DS ---
DATE OF DISCHARGE: 06/01/2020 HOSPITAL COURSE: This is a 74-year-old female with pneumonia, community acquired as well as pyelonephritis. The patient came into the office and was found to have a sugar of approximately 25-35, was basically unconscious and a hypoglycemic episode. The patient was brought in, given D50. Apparently taking her medications without eating and had significant problems there. The patient also was noted to have abdominal pain. A CT scan of her abdomen and pelvis showed diverticulitis as well as pyelonephritis with left flank pain. The patient also was noted to have possibility of pneumonitis as well. She was placed on IV antibiotic therapy and was also noted she had Klebsiella pneumoniae and E. coli growing out of her urine. Approximately 1-2 months prior, the patient did have a non-STEMI heart attack and also was recovering from that. She has a multiplicity of medical issues. Her hemoglobin had dropped down to 8.5/27, but basically stable. Blood sugars were erratic at best. Kidney function showed chronic kidney disease stage 4, and she has severe protein malnutrition. The patient was placed on IV antibiotic therapy, and she made reasonably good progress with her diverticulitis, pyelonephritis and the like. The patient had been encouraged to go to a rehab facility for continued rehabilitation, and she was continued to be weakened even after recovery from these multiple problems, but she refused and wanted to go home. DISCHARGE DIAGNOSES: Therefore is sepsis, diverticulitis, pyelonephritis, chronic kidney disease stage 4, type 2 diabetes, coronary artery disease, recent history of a non-STEMI heart attack, COVID-19 negative. Severe protein malnutrition, anemia of chronic disease, sinus tachycardia. PLAN: As above, the patient was discharged per patient's request. She will be on a diabetic heart healthy diet. See MRAD. She will follow up in 7-10 days. Home health to be provided and will make further evaluation on her as an outpatient for close monitoring. JAYMIE GE MD DR: MAURIZIO/luis angel JOB#: [id number] / [id number]
== END 2020-06-01 11:00 | disposition home health service (06) | DRG 871 ==
LOC: ER 14:48 → 1 SOUTH 16:37 → OBSVTOIN 05-27 12:13
PROVIDERS: ADMIT Family Medicine; ATTEND Family Medicine
DX: A41.9 Sepsis, unspecified organism (principal); E43 Unspecified severe protein-calorie malnutrition; J15.6 Pneumonia due to other Gram-negative bacteria; J15.9 Unspecified bacterial pneumonia; J44.0 Chronic obstructive pulmonary disease with (acute) lower respiratory infection; K57.92 Diverticulitis of intestine, part unspecified, without perforation or abscess without bleeding; N18.4 Chronic kidney disease, stage 4 (severe); N10 Acute pyelonephritis; E11.43 Type 2 diabetes mellitus with diabetic autonomic (poly)neuropathy; E03.9 Hypothyroidism, unspecified; E11.22 Type 2 diabetes mellitus with diabetic chronic kidney disease; E11.649 Type 2 diabetes mellitus with hypoglycemia without coma; E66.01 Morbid (severe) obesity due to excess calories; E78.00 Pure hypercholesterolemia, unspecified; F41.1 Generalized anxiety disorder; I25.2 Old myocardial infarction; Z88.8 Allergy status to other drugs, medicaments and biological substances; Z90.710 Acquired absence of both cervix and uterus; Z90.81 Acquired absence of spleen; F32.9 Major depressive disorder, single episode, unspecified; K31.84 Gastroparesis; Z79.4 Long term (current) use of insulin; Z20.822 Contact with and (suspected) exposure to COVID-19; Z68.29 Body mass index [BMI] 29.0-29.9, adult; D63.8 Anemia in other chronic diseases classified elsewhere; I25.10 Atherosclerotic heart disease of native coronary artery without angina pectoris
CPT/HCPCS: 36415; 71046; 74176; 80048; 80053; 81001; 82550; 82553; 82947; 83735; 84443; 84484; 85007; 85025; 85379; 87077; 87086; 87186; 93005; 94640; 96365; 96375; 96376; G0378; G0379; J0696; J0780; J1815; J1956; J2405; J3010; U0003; 97110; 97116; 97530; 99291-25

== ENCOUNTER 2020-06-03 10:02 | Inpatient (IN) | payer MEDICARE, OTHER ==
[~2020-06-03] VITALS: Ht 144.8 cm; Wt 64.3 kg
[~2020-06-03 10:02] MED LIST changes: +AMIT50TA PO; +EMPA10TA PO; +GABA600T7 PO; +GALC120P SQ; +LACT1CAP19 PO; +LEVO250T7 PO; +METH-38 PO; +OMEP20CA16 PO; +OXYC-325 PO
[2020-06-03] MEDS ORDERED: IV NORMAL SALINE 1,000ML 1,000 ML IV ONE (10:45)
[2020-06-03 10:55] LABS: BASO # 0.1 x10^3/uL (0.0-0.2); BASO % 1 % (0-3); EOS # 0.3 x10^3/uL (0.0-0.7); EOS % 2 % (0-3); HEMATOCRIT 27.8 % (36.0-47.0); HEMOGLOBIN 8.6 g/dL (12.0-15.5); LYMPH % 28 % (24-48); MEAN CORPUSCULAR HEMOGLOBIN 29 pg (25-35); MEAN CORPUSCULAR HGB CONC 31 g/dL (31-37); MEAN CORPUSCULAR VOLUME 94 fL (79-100); MONO # 2.4 x10^3/uL (0.0-1.1); MONO % 14 % (0-9); NEUT # 9.7 x10^3uL (1.8-7.7); NEUT % 56 % (31-73); PLATELET COUNT 691 x10^3/uL (140-400); RED BLOOD COUNT 2.97 x10^6/uL (3.50-5.40); RED CELL DISTRIBUTION WIDTH 20.7 % (11.5-14.5); WHITE BLOOD COUNT 17.5 x10^3/uL (4.0-11.0)
[2020-06-03 11:06] LABS: ALBUMIN 2.3 g/dL (3.4-5.0); ALBUMIN/GLOBULIN RATIO 0.5 (1.0-1.7); CALCIUM 7.8 mg/dL (8.5-10.1); CREATININE 1.9 mg/dL (0.6-1.0); GFR 25.8; MAGNESIUM 1.6 mg/dL (1.8-2.4); TOTAL BILIRUBIN 0.2 mg/dL (0.2-1.0); TOTAL PROTEIN 6.9 g/dL (6.4-8.2)
[2020-06-03 11:12] LABS: POTASSIUM 6.5 mmol/L (3.5-5.1)
--- NOTE | 2020-06-03 11:14 | EKG ---
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
--- NOTE | 2020-06-03 11:51 | RAD ---
Single view chest dated 06/03/2020. Comparison made to 05/29/2020. Clinical data indication: Altered mental status. FINDINGS: Single upright view of the chest shows stable heart and mediastinal contours. Prominent perihilar ryley ear markings, similar to prior study. No consolidation or pleural effusion. No pneumothorax. IMPRESSION: No acute radiographic abnormality. Stable findings compared to 05/29/2020. Electronically signed by: Cyrus Barrientos MD (06/03/2020 11:49 AM) [id number]
[2020-06-03] MEDS ORDERED: INSULIN REGULAR 100 UNIT/ML 3ML VIAL. IV ONE (12:00)
[2020-06-03] MEDS ORDERED: DEXTROSE 25% 10 ML DISP.SYRIN. IV ONE (12:00)
[2020-06-03] MEDS ORDERED: ACETAMINOPHEN 325 MG TABLET PO PRN (12:00)
[2020-06-03] MEDS ORDERED: ONDANSETRON PF 4 MG/2 ML VIAL. IVP PRN (12:00)
[2020-06-03] MEDS ORDERED: CALCIUM GLUCONATE 1,000 MG/10 ML VIAL IV ONE (12:00)
[2020-06-03 13:33] LABS: % ATYL 1 % (0-0); % EOS 1 % (0-5); % LYMPHS 28 % (24-48); % MONOS 12 % (0-10); % SEGS 58 % (35-66); ANISOCYTOSIS MOD; PLT ESTIMATE INCREASED (ADEQUATE)
[2020-06-03 13:34] LABS: POIKILOCYTOSIS SLIGHT
[2020-06-03] MEDS: IV NORMAL SALINE 1,000ML 1,000 ML IV SCH (13:40)
--- NOTE | 2020-06-03 14:16 | PHYS DOC ---
Past History Past Medical History: Anemia, Depression, Diabetes, High Cholesterol, DC, Renal Disease, Other Additional Past Medical Histor: tardive dysk, renal insuff; morbid obesity; hyperuricemia; small bowel obst Past Surgical History: Cholecystectomy, Hysterectomy, Other Additional Past Surgical Histo: splenectomy Smoking: Non-smoker Alcohol Use: None Drug Use: None General Adult EDM: Chief Complaint: WEAKNESS/GENERALIZED HPI: HPI: Patient is a 74-year-old female coming in for generalized weakness and fatigue. Patient was discharged from the hospital 2 days ago. States she did not feel back to her normal state of health at that time but states she is feeling worse today. Patient states she was having diarrhea in the hospital and continues to have diarrhea, she describes it as not watery, nonbloody. Says it is reddish- brown. Patient states she has had history of C. difficile before but says this is different. Denies any vomiting. Per spouse she has had very little p.o. intake. Denies cough, fevers, chest pain. Patient states she has a sore on her bottom she thinks is a bedsore. Patient was diagnosed with a UTI discharged on antibiotics. Review of Systems: Review of Systems: All other systems within normal limits except for as noted in the HPI Current Medications: Current Meds: Current Medications Medications (Trade) Dose Ordered Sig/Kristin Start Time Stop Time Status Last Admin Dose Admin Sodium Chloride 1,000 ml @ 1,000 mls/hr 1X ONCE 06/03/20 10:45 06/03/20 11:44 DC 06/03/20 10:58 1,000 MLS/HR Allergies: Allergies: Allergies Coded Allergies Type Severity Reaction Last Updated Verified grapefruit Allergy Intermediate 04/19/19 Yes hydromorphone Allergy Intermediate 04/19/19 Yes metoclopramide Allergy Intermediate 04/19/19 Yes morphine Allergy Intermediate 04/19/19 Yes phenytoin Allergy Intermediate 04/19/19 Yes trazodone Allergy Intermediate 04/19/19 Yes zolpidem Allergy Intermediate 04/19/19 Yes Physical Exam: PE: Constitutional: Well developed, well nourished, no acute distress, non-toxic appearance. [] HENT: Normocephalic, atraumatic, bilateral external ears normal, nose normal. Dry mucous membranes [] Eyes: PERRLA, conjunctiva normal, no discharge. [] Neck: No rigidity, supple, no stridor. [] Cardiovascular: Regular rate and rhythm, brisk cap refill [] Lungs & Thorax: Non labored symmetric respirations, no tachypnea or respiratory distress [] Abdomen: Soft, nondistended. Skin: Warm, dry, no erythema, no rash. [] Back: Unremarkable, small area of erythema around sacrum Extremities: No deformities, range of motion grossly intact, no lower extremity edema [] Neurologic: Alert and oriented X 3, no focal deficits noted. [] Psychologic: Affect normal, judgement normal, mood normal. [] Current Patient Data: Labs: Laboratory Tests Test 06/03/20 10:05 06/03/20 10:32 06/03/20 10:55 White Blood Count 17.5 x10^3/uL (4.0-11.0) H Red Blood Count 2.97 x10^6/uL (3.50-5.40) L Hemoglobin 8.6 g/dL (12.0-15.5) L Hematocrit 27.8 % (36.0-47.0) L Mean Corpuscular Volume 94 fL (79-100) Mean Corpuscular Hemoglobin 29 pg (25-35) Mean Corpuscular Hemoglobin Concent 31 g/dL (31-37) Red Cell Distribution Width 20.7 % (11.5-14.5) H Platelet Count 691 x10^3/uL (140-400) H Neutrophils (%) (Auto) 56 % (31-73) Lymphocytes (%) (Auto) 28 % (24-48) Monocytes (%) (Auto) 14 % (0-9) H Eosinophils (%) (Auto) 2 % (0-3) Basophils (%) (Auto) 1 % (0-3) Neutrophils # (Auto) 9.7 x10^3uL (1.8-7.7) H Lymphocytes # (Auto) 5.0 x10^3/uL (1.0-4.8) H Monocytes # (Auto) 2.4 x10^3/uL (0.0-1.1) H Eosinophils # (Auto) 0.3 x10^3/uL (0.0-0.7) Basophils # (Auto) 0.1 x10^3/uL (0.0-0.2) Segmented Neutrophils % 58 % (35-66) Lymphocytes % 28 % (24-48) Atypical Lymphocytes % (Manual) 1 % (0-0) H Monocytes % 12 % (0-10) H Eosinophils % 1 % (0-5) Platelet Estimate Increased (ADEQUATE) Poikilocytosis Slight Anisocytosis Mod Sodium Level 127 mmol/L (136-145) L Potassium Level 6.5 mmol/L (3.5-5.1) *H Chloride Level 97 mmol/L (98-107) L Carbon Dioxide Level 18 mmol/L (21-32) L Anion Gap 12 (6-14) Blood Urea Nitrogen 25 mg/dL (7-20) H Creatinine 1.9 mg/dL (0.6-1.0) H Estimated GFR (Cockcroft-Gault) 25.8 BUN/Creatinine Ratio 13 (6-20) Glucose Level 241 mg/dL (70-99) H Calcium Level 7.8 mg/dL (8.5-10.1) L Magnesium Level 1.6 mg/dL (1.8-2.4) L Total Bilirubin 0.2 mg/dL (0.2-1.0) Aspartate Amino Transferase (AST) 19 U/L (15-37) Alanine Aminotransferase (ALT) 19 U/L (14-59) Alkaline Phosphatase 79 U/L (46-116) Total Protein 6.9 g/dL (6.4-8.2) Albumin 2.3 g/dL (3.4-5.0) L Albumin/Globulin Ratio 0.5 (1.0-1.7) L Troponin I Quantitative < 0.017 ng/mL (0-0.055) POC Venous pH 7.33 (7.32-7.42) POC Venous pCO2 33 mmHg (41-51) L POC Venous pO2 21 mmHg (20-40) Venous Blood HCO3 18 mmol/L (24-28) L POC Venous O2 Saturation (Jacob) 32 % POC FiO2 21 Lactic Acid Level 2.3 mmol/L (0.4-2.0) H Ammonia 14 mcmol/L (11-34) Vital Signs: Vital Signs Date Time Temp Pulse Resp B/P (MAP) Pulse Ox O2 Delivery O2 Flow Rate FiO2 06/03/20 13:20 96 19 94/42 (59) 95 Room Air 06/03/20 10:02 98.6 EKG: EKG: Sinus rhythm, left axis deviation, no ST elevation or depression, normal intervals, no ectopy, no peaked T waves. [] Radiology/Procedures: Radiology/Procedures: Single view chest dated 06/03/2020. Comparison made to 05/29/2020. Clinical data indication: Altered mental status. FINDINGS: Single upright view of the chest shows stable heart and mediastinal contours. Prominent perihilar linear markings, similar to prior study. No consolidation or pleural effusion. No pneumothorax. IMPRESSION: No acute radiographic abnormality. Stable findings compared to 05/29/2020.[] Heart Score: Risk Factors: Risk Factors: DM, Current or recent (<one month) smoker, HTN, HLP, family history of CAD, obesity. Risk Scores: Score 0 - 3: 2.5% MACE over next 6 weeks - Discharge Home Score 4 - 6: 20.3% MACE over next 6 weeks - Admit for Clinical Observation Score 7 - 10: 72.7% MACE over next 6 weeks - Early Invasive Strategies Course & Med Decision Making: Course & Med Decision Making Pertinent Labs and Imaging studies reviewed. (See chart for details) Hyperkalemia treated with insulin, dextrose, and calcium gluconate. No QRS widening on ECG, admitted to Dr. Moreland [] Karen Disclaimer: Karen Disclaimer: This electronic medical record was generated, in whole or in part, using a voice recognition dictation system. Departure Departure: Impression: Primary Impression: Hyperkalemia Additional Impressions: Dehydration Fatigue Diarrhea Disposition: ADMITTED INPT THIS HOSP Admitting Physician: Jaymie Moreland Condition: GUARDED Referrals: JAYMIE MORELAND MD (PCP) PADMINI SIFUENTES MD Jun 03, 2020 14:16
[2020-06-03 14:27] VITALS: BP 110/62
--- NOTE | 2020-06-03 17:32 | NUR ---
ADMISSION NOTE- PT ARRIVES VIA EMS FROM[facility] AT 1450. VSS, TELE APPLIED. NO C/O PAIN AT THIS TIME. TRANSFERS TO BED WITH ASSIST OF STAFF. REQUESTS BSC, SHE HAS BEEN HAVING TO USE THE RESTROOM A LOT, AND IS VERY FATIGUED.
--- NOTE | 2020-06-03 17:35 | NUR ---
PT REPORTS BEING UTD ON FLU VAX, BUT DOES NOT RECALL DATE.
[2020-06-03] MEDS ORDERED: ONDANSETRON ODT 4 MG TAB.RAPDIS PO PRN (18:15)
[2020-06-03] MEDS ORDERED: GALCANEZUMAB GNLM 120 MG SQ SCH (18:15)
[2020-06-03] MEDS ORDERED: ALBUTEROL SULFATE 2.5 MG/3 ML NEBU. INH PRN (18:15)
[2020-06-03] MEDS ORDERED: FUROSEMIDE 20 MG TABLET PO PRN (18:15)
--- NOTE | 2020-06-03 18:59 | HP ---
ADMIT DATE: 06/03/2020 HISTORY OF PRESENT ILLNESS: A 74-year-old female at home recently with diverticulitis and pyelonephritis. The patient was found by her home health agency nurse with blood pressure down in the 70s. Initially, she had come in a few weeks ago with a low blood sugar down in the 20s or 30s and recovered from that very nicely, went home and then depreciated her blood pressure extensively, became extremely weak and tired, came in, was seen through the Emergency Room and was admitted for further evaluation of her hypotension. She also continues to have some diarrhea. No blood noted, watery stools. Denies any cough or fever. She did have a history of diverticulitis as noted. The patient otherwise is admitted for this situation as indicated above. C. difficile will be ordered. PAST MEDICAL HISTORY: Unchanged since previous one noted here at her last H and P, CHF, heart attacks, headaches, sleep apnea, tardive dyskinesia, urinary tract infections, severe degenerative arthritis, previous suicide attempt, influenza, pneumococcal all up-to-date. She has had a previous history of splenectomy, diverticulitis, pyelonephritis and pneumonitis. FAMILY HISTORY: Positive for polio in her brother and diabetes, stomach cancer in her brother. Breast cancer in her sister, hypertension, gallbladder problems, depression, cardiovascular disease. ALLERGIES: GRAPEFRUIT, HYDROMORPHONE, REGLAN, MORPHINE, DILANTIN, TRAZODONE, AND AMBIEN. SOCIAL HISTORY: The patient denies smoking, alcohol or drug use, full code. REVIEW OF SYSTEMS: The patient basically feels weak, tired, run down, worse than what she was obviously when she left the hospital. Otherwise, she denies chest pain, shortness of breath, just generalized weakness. PHYSICAL EXAMINATION: GENERAL: Pleasant white female, moderate amount of distress. VITAL SIGNS: Blood pressure 90/35, respiratory rate 20, pulse 90. She is afebrile, 95% oxygen saturation. The patient otherwise is ill-appearing white female, moderate amount of distress. HEENT: The patient's head was atraumatic, normocephalic. Eyes: PERRLA without jaundice. The mouth and throat were normal. NECK: Supple, without JVD or carotid bruits. No thyromegaly. LUNGS: Diminished throughout, poor movement of air in the bases. CARDIOVASCULAR: Regular sinus rhythm, S1, S2. ABDOMEN: Soft, nontender, no rebound or guarding except in the left lower quadrant, some mild tenderness, but on deep palpation. NEUROLOGIC: Alert and oriented, baseline for her, but just does not feel good overall. Stool will be collected for C. difficile. LABORATORY DATA: Her white count has shot up to 17,000 and hemoglobin is down to 8.6 and 26. No left shift. Her potassium was also elevated at 6.5, sodium of only 127. Blood sugar 240. The patient will be monitored carefully in all these issues. IMPRESSION: Hyperkalemia, hyponatremia, hypotension, diarrhea, possible C. diff history recently of diverticulitis, history of chronic obstructive pulmonary disease, type 2 diabetes, history of pyelonephritis. PLAN: We will go ahead and continue to monitor the patient accordingly, get her potassium down and repeat her blood work in the morning. Also, may just start her on vancomycin, stool has been collected for her possible C. diff. JAYMIE GE MD DR: MAURIZIO/luis angel JOB#: [id number] / [id number]
[2020-06-03 19:05] VITALS: BP 97/61
[2020-06-03] MEDS ORDERED: ALBUTEROL SULFATE 2.5 MG/3 ML NEBU. NEB PRN (19:30)
[2020-06-03] MEDS ORDERED: LOPERAMIDE 2 MG CAPSULE PO SCH (21:00)
[2020-06-03] MEDS ORDERED: ATORVASTATIN CALCIUM 20 MG TABLET PO SCH (21:00)
[2020-06-03] MEDS: INSULIN GLARGINE SYRINGE. SQ SCH (21:00)
[2020-06-03] MEDS: VANCOMYCIN 125 MG/2.5 ML ORAL SOLUTION. PO SCH (21:00)
[2020-06-03] MEDS: DICLOFENAC SODIUM 1% TOPICAL GEL 100GM TUBE. TP SCH (21:00)
[2020-06-03] MEDS: buPROPion SR 150 MG TABLET.SA PO SCH (21:11)
[2020-06-03] MEDS: rOPINIRole 1 MG TABLET. PO SCH (21:11)
[2020-06-03] MEDS ORDERED: diphenhydrAMINE HCL 25 MG CAPSULE PO PRN (22:30)
[2020-06-04 00:26] VITALS: BP 109/67
[2020-06-04] MEDS: IV NORMAL SALINE 1,000ML 1,000 ML IV SCH (05:00)
[2020-06-04] MEDS: rOPINIRole 1 MG TABLET. PO SCH (05:47)
[2020-06-04 06:06] VITALS: BP 91/53
[2020-06-04 06:21] LABS: ALBUMIN 1.9 g/dL (3.4-5.0); ALBUMIN/GLOBULIN RATIO 0.4 (1.0-1.7); CALCIUM 7.9 mg/dL (8.5-10.1); CREATININE 1.4 mg/dL (0.6-1.0); GFR 36.8; POTASSIUM 5.4 mmol/L (3.5-5.1); TOTAL BILIRUBIN 0.2 mg/dL (0.2-1.0); TOTAL PROTEIN 6.4 g/dL (6.4-8.2)
[2020-06-04 06:24] LABS: BASO # 0.2 x10^3/uL (0.0-0.2); BASO % 1 % (0-3); EOS # 0.2 x10^3/uL (0.0-0.7); EOS % 2 % (0-3); HEMATOCRIT 23.1 % (36.0-47.0); HEMOGLOBIN 7.3 g/dL (12.0-15.5); LYMPH # 5.2 x10^3/uL (1.0-4.8); LYMPH % 38 % (24-48); MEAN CORPUSCULAR HEMOGLOBIN 29 pg (25-35); MEAN CORPUSCULAR HGB CONC 32 g/dL (31-37); MEAN CORPUSCULAR VOLUME 93 fL (79-100); MONO # 2.3 x10^3/uL (0.0-1.1); MONO % 16 % (0-9); NEUT # 5.9 x10^3uL (1.8-7.7); NEUT % 43 % (31-73); PLATELET COUNT 617 x10^3/uL (140-400); RED BLOOD COUNT 2.49 x10^6/uL (3.50-5.40); WHITE BLOOD COUNT 13.8 x10^3/uL (4.0-11.0)
[2020-06-04] MEDS: INSULIN LISPRO 300 UNITS/3 ML VIAL. SQ SCH ×2 (07:30→11:30)
[2020-06-04] MEDS ORDERED: PANTOPRAZOLE 40 MG TABLET. PO SCH (07:30)
[2020-06-04] MEDS: buPROPion SR 150 MG TABLET.SA PO SCH (08:37)
[2020-06-04] MEDS: amLODIPine BESYLATE 5 MG TABLET PO SCH ×2 (08:37→08:42)
[2020-06-04] MEDS: DICLOFENAC SODIUM 1% TOPICAL GEL 100GM TUBE. TP SCH (08:39)
[2020-06-04] MEDS: VANCOMYCIN 125 MG/2.5 ML ORAL SOLUTION. PO SCH (08:39)
[2020-06-04] MEDS: INSULIN GLARGINE SYRINGE. SQ SCH (08:39)
[2020-06-04] MEDS ORDERED: ASPIRIN CHEWABLE 81 MG TABLET. PO SCH (09:00)
[2020-06-04] MEDS ORDERED: SPIRONOLACTONE 25 MG TABLET PO SCH (09:00)
[2020-06-04] MEDS ORDERED: MONTELUKAST 10 MG TABLET. PO SCH (09:00)
[2020-06-04] MEDS ORDERED: ARIPiprazole 2 MG TABLET PO SCH (09:00)
[2020-06-04] MEDS ORDERED: CETIRIZINE HCL 10 MG TABLET PO SCH (09:00)
[2020-06-04] MEDS ORDERED: METOPROLOL SUCC 24HR ER 25 MG TAB.ER.24H. PO SCH (09:00)
[2020-06-04] MEDS ORDERED: LACTOBACILLUS RHAMNOSUS GG 1 CAPSULE. PO SCH (09:00)
--- NOTE | 2020-06-04 10:29 | DISCH ---
DISCHARGE ORDERS DISCHARGE DATE: Jun 04, 2020 FINAL DIAGNOSIS hyperkalemia, weakness, falls,diabetes, hypertension CONDITION AT DISCHARGE: Stable Code Status: Full SNF STAY <30 DAYS: Yes HOSPICE: No HOSPICE EVALUATE & TREAT: No ADMIT TO LTAC: No POST DISCHARGE ORDERS: ACTIVITY ORDERS: Resume previous activity WEIGHT BEARING STATUS: No restrictions DIET AFTER DISCHARGE: ADA WOUND/INCISION CARE: No wound care needed CHECKS AFTER DISCHARGE: CHECKS AFTER DISCHARGE: Check blood press - daily, Check blood sugar, ac/hs COMMENTS: Check blood pressure before giving medications FOLLOW-UP: LAB ORDERS FOLLOW-UP: CBC on June 08- please notifiy me of results TREATMENT/EQUIPMENT ORDERS: ADAPTIVE EQUIPMENT NEEDED: None DISCHARGE MEDICATIONS: Home Meds Active Scripts Diclofenac Sodium (VOLTAREN) 100 Gm Gel..gram., 1 MELISSA TP QID for pain, #1 EACH 3 Refills Prov:JAYMIE GE MD 06/01/20 Furosemide (FUROSEMIDE) 20 Mg Tablet, 20 MG PO PRN DAILY PRN for FLUID RETENTION, #30 TAB 1 Refill Prov:JAYMIE GE MD 06/01/20 Pantoprazole Sodium (PANTOPRAZOLE SODIUM) 40 Mg Tablet.dr, 40 MG PO DAILYAC for stomach for 30 Days, #30 TAB 3 Refills Prov:JAYMIE GE MD 06/01/20 Metoprolol Succinate (METOPROLOL SUCCINATE ( XL )) 25 Mg Tab.er.24h, 12.5 MG PO DAILY for heart for 30 Days, #15 TAB.SR 3 Refills Prov:JAYMIE GE MD 06/01/20 Erythromycin Base (ERYTHROMYCIN) 250 Mg Tablet, 250 MG PO TIDAC for gastropresis for 10 Days, #30 TAB Prov:JAYMIE GE MD 06/01/20 Cetirizine Hcl (CETIRIZINE HCL) 10 Mg Tablet, 10 MG PO DAILY for allergies for 30 Days, #30 TAB 4 Refills Prov:JAYMIE GE MD 06/01/20 Reported Medications Galcanezumab-Gnlm (Emgality) 120 Mg/1 Ml Pen.injctr, 120 MG SQ 1X for MONTHLY FOR MIGRANES TAKE ON YOUR REG SCHEDULED DAY 05/28/20 Ropinirole Hcl (ROPINIROLE HCL) 1 Mg Tablet, 1 MG PO Q8HRS for RESTLESS LEGS LAST DOSE GIVEN: DATE: TODAY TIME: 6 AM NEXT DOSE DUE: DATE: TODAY TIME: 2 PM 05/27/20 Lactobacillus Rhamnosus Gg (CULTURELLE) 1 Each Cap.sprink, 1 CAP PO DAILY for SUPPLEMENT LAST DOSE GIVEN: DATE: TODAY TIME: AM NEXT DOSE DUE: DATE: TOMORROW TIME: AM 05/27/20 Albuterol Sulfate (PROAIR HFA INHALER) 8.5 Gm Hfa.aer.ad, 1 PUFF INH Q8HRS PRN for SHORTNESS OF BREATH, 0 Refills NOT GIVEN TODAY NEXT DOSE DUE: DATE: TIME: IF AND WHEN NEEDED 05/27/20 Ondansetron (ONDANSETRON ODT) 4 Mg Tab.rapdis, 1 TAB PO PRN Q6-8HRS for NAUSEA NOT GIVEN TODAY NEXT DOSE DUE: DATE: TODAY TIME: IF AND WHEN NEEDED 05/27/20 Aripiprazole (ABILIFY) 2 Mg Tablet, 1 TAB PO DAILY for MOOD STABILIZER LAST DOSE GIVEN: DATE: TODAY TIME: AM NEXT DOSE DUE: DATE: TOMORROW TIME: AM 02/24/19 Spironolactone (SPIRONOLACTONE) 25 Mg Tablet, 1 TAB PO DAILY for FLUID RETENTION LAST DOSE GIVEN: DATE: TODAY TIME: AM NEXT DOSE DUE: DATE: TOMORROW TIME: AM 02/24/19 Atorvastatin Calcium (ATORVASTATIN CALCIUM) 80 Mg Tablet, 1 TAB PO DAILY for HIGH CHOLESTEROL LAST DOSE GIVEN: DATE: TODAY TIME: AM NEXT DOSE DUE: DATE: ORROW TIME: AM 02/24/19 Amlodipine Besylate (NORVASC) 5 Mg Tablet, 1 TAB PO DAILY for HIGH BLOOD PRESSURE LAST DOSE GIVEN: DATE: TODAY TIME: AM NEXT DOSE DUE: DATE: TOMORROW TIME: AM 11/23/17 Lisinopril (LISINOPRIL) 5 Mg Tablet, 1 TAB PO DAILY for HIGH BLOOD PRESSURE LAST DOSE GIVEN: DATE: TODAY TIME: AM NEXT DOSE DUE: DATE: TOMORROW TIME: AM 11/23/17 Bupropion Hcl (WELLBUTRIN SR) 150 Mg Tablet.er, 1 TAB PO BID for DEPRESSION LAST DOSE GIVEN: DATE: TODAY TIME: AM NEXT DOSE DUE: DATE: TODAY TIME: PM 11/23/17 Montelukast Sodium (MONTELUKAST SODIUM TABLET ) 10 Mg Tablet, 1 TAB PO DAILY for ALLERGIES LAST DOSE GIVEN: DATE: TODAY TIME: AM NEXT DOSE DUE: DATE: ORROW TIME: AM 11/23/17 Insulin Aspart (NOVOLOG FLEXPEN) 100 Unit/1 Ml Insuln.pen, 6 UNIT SQ TIDAC for HIGH BLOOD SUGAR-DIABETES LAST DOSE GIVEN: DATE: TODAY TIME: WITH BREAKFAST NEXT DOSE DUE: DATE: TODAY TIME: WITH LUNCH 11/23/17 Insulin Detemir (Levemir Flextouch) 100 Unit/1 Ml Insuln.pen, 36 UNIT SQ BID for HIGH BLOOD SUGAR-DIABETES LAST DOSE GIVEN: DATE: TODAY TIME: AM NEXT DOSE DUE: DATE: TODAY TIME: PM 11/23/17 Loperamide Hcl (LOPERAMIDE) 2 Mg Capsule, 2 MG PO AFTER EACH LOOSE STO for DIARRHEA LAST DOSE GIVEN: DATE: TIME: AM NEXT DOSE DUE: DATE: TODAY TIME: PM 11/23/17 Aspirin (ASPIRIN) 81 Mg Tab.chew, 81 MG PO DAILY for HEART HEALTH LAST DOSE GIVEN: DATE: TIME: AM NEXT DOSE DUE: DATE: TOMORROW TIME: AM 11/23/17 Discontinued Reported Medications Oxycodone HCl/Acetaminophen (Percocet 5-325 mg Tablet) 1 Each Tablet, 1 EACH PO PRN Q4HRS PRN for PAIN, TAB 05/27/20 Omeprazole (OMEPRAZOLE) 20 Mg Capsule.dr, 20 MG PO DAILY for GERD, CAP 05/27/20 Methocarbamol (ROBAXIN-750) 750 Mg Tablet, 750 MG PO PRN Q8HRS PRN for MUSCLE SPASM, TAB 05/27/20 Metformin Hcl (METFORMIN HCL) 1,000 Mg Tablet, 1000 MG PO BID for ANTI-DIABETIC, TAB 0 Refills 05/27/20 Gabapentin (GABAPENTIN) 600 Mg Tablet, 100 MG PO TID for NEUROGENIC PAIN, TAB 05/27/20 Empagliflozin (Jardiance) 10 Mg Tablet, 10 MG PO DAILY for DM, TAB 05/27/20 Amitriptyline Hcl (AMITRIPTYLINE HCL) 50 Mg Tablet, 1 TAB PO QHS for SLEEP, #30 TAB 1 Refill 05/27/20 Naproxen (NAPROXEN) 500 Mg Tablet, 1 TAB PO BID for PAIN LAST DOSE GIVEN: DATE: TIME: AM NEXT DOSE DUE: DATE: TODAY TIME: PM 02/24/19 Duloxetine Hcl (DULOXETINE HCL) 60 Mg Capsule.dr, 60 MG PO BID for DPRESSION LAST DOSE GIVEN: DATE: TODAY TIME: AM NEXT DOSE DUE: DATE: TODAY TIME: PM 02/24/19 Zonisamide (ZONISAMIDE) 100 Mg Capsule, 100 MG PO TID for SEIZURES LAST DOSE GIVEN: DATE: TODAY TIME: AM NEXT DOSE DUE: DATE: TODAY TIME: AFTERNOON 11/23/17 Nortriptyline Hcl (NORTRIPTYLINE HCL) 25 Mg Capsule, 2 CAP PO QHS for SLEEP AIDE LAST DOSE GIVEN: DATE: YESTERDAY TIME: AT BEDTIME NEXT DOSE DUE: DATE: TODAY TIME: AT BEDTIME 11/23/17 Carbamazepine (TEGRETOL) 200 Mg Tablet, 1 TAB PO HS for NERVE PAIN LAST DOSE GIVEN: DATE: YESTERDAY TIME: AT BEDTIME NEXT DOSE DUE: DATE: TODAY TIME: AT BEDTIME 11/23/17 JAYMIE GE MD Jun 04, 2020 10:29
[2020-06-04 11:24] VITALS: BP 109/65
--- NOTE | 2020-06-04 13:01 | NUR ---
MEDICATION NOTE- PT REFUSES NOON INSULIN, BLOOD SUGAR IS "FINALLY NORMAL" AFTER BEING LOW THIS AM. WILL CONTINUE TO OBSERVE ET NOTE CHANGES.
--- NOTE | 2020-06-04 17:06 | NUR ---
DISCHARGE NOTE-PIV DICONTINUED, TELE REMOVED. PT DRESSED IN OWN CLOTHES FOR TRANSPORT TO [facility]. DISCHARGE INFORMATION SENT TO [facility] STAFF. ALL POSSESSIONS SENT WITH PATIENT AT TIME OF DISCHARGE. WHEELED TO FRONT DOOR BY [employer] CO[employer] STAFF.
--- NOTE | 2020-06-10 12:25 | DS ---
DATE OF DISCHARGE: 06/04/2020 HOSPITAL COURSE: A 74-year-old female came in and was found by her home health nurse, blood pressure down in the 70s, blood sugar was also being erratic. The patient was admitted for further evaluation and treatment and came up with C. difficile colitis, recently been treated for diverticulitis and pyelonephritis. The patient came in with multiple loose stools, elevated white count of 17,000 and elevated platelet count of 690, hemoglobin approximately 7.3 and 23. The patient's potassium and sodium were good. Blood sugars are being monitored carefully. The patient showed a positive C. difficile colitis. In any case, the patient was given IV fluids, started on oral vancomycin solution per protocol. She made reasonably good progress with that stabilizing and will be turned over to [facility] for further consideration. IMPRESSION: Hyperkalemia, hyponatremia, hypotension, Clostridium difficile colitis, history of urinary tract infection, type 2 diabetes, morbid obesity, general deconditioning, chronic kidney disease, severe protein malnutrition. PLAN: As above. Discharged to nursing care. JAYMIE GE MD DR: MAURIZIO/luis angel JOB#: [id number] / [id number]
== END 2020-06-04 17:08 | DRG 371 ==
LOC: ER 10:02 → 1 SOUTH 11:55
PROVIDERS: ADMIT Family Medicine; ATTEND Family Medicine
DX: A04.72 Enterocolitis due to Clostridium difficile, not specified as recurrent (principal); E43 Unspecified severe protein-calorie malnutrition; E87.1 Hypo-osmolality and hyponatremia; I13.0 Hypertensive heart and chronic kidney disease with heart failure and stage 1 through stage 4 chronic kidney disease, or unspecified chronic kidney disease; E87.5 Hyperkalemia; E78.00 Pure hypercholesterolemia, unspecified; E78.5 Hyperlipidemia, unspecified; E86.0 Dehydration; I50.9 Heart failure, unspecified; J44.9 Chronic obstructive pulmonary disease, unspecified; L89.90 Pressure ulcer of unspecified site, unspecified stage; Z80.0 Family history of malignant neoplasm of digestive organs; Z80.3 Family history of malignant neoplasm of breast; Z81.8 Family history of other mental and behavioral disorders; Z82.49 Family history of ischemic heart disease and other diseases of the circulatory system; Z83.3 Family history of diabetes mellitus; Z87.891 Personal history of nicotine dependence; Z90.710 Acquired absence of both cervix and uterus; Z90.81 Acquired absence of spleen; Z91.5 Personal history of self-harm; E66.01 Morbid (severe) obesity due to excess calories; F32.9 Major depressive disorder, single episode, unspecified; M19.90 Unspecified osteoarthritis, unspecified site; Z20.822 Contact with and (suspected) exposure to COVID-19; Z88.8 Allergy status to other drugs, medicaments and biological substances; Z68.30 Body mass index [BMI] 30.0-30.9, adult; Z87.440 Personal history of urinary (tract) infections; E11.22 Type 2 diabetes mellitus with diabetic chronic kidney disease; N18.9 Chronic kidney disease, unspecified
CPT/HCPCS: 36415; 71045; 80053; 82140; 82803; 82947; 83605; 83735; 84484; 85007; 85025; 87426; 93005; 94640; 96360; J0610; J1815; U0003; 99285-25; J7030; J7613

== ENCOUNTER 2020-06-19 21:53 | Emergency (ER) | payer MEDICARE, OTHER ==
[~2020-06-19] VITALS: Ht 144.8 cm; Wt 64.3 kg
--- NOTE | 2020-06-19 22:32 | PHYS DOC ---
Past History Past Medical History: Anemia, CAD, Depression, Diverticulitis, Diabetes, GERD, GI Bleed, High Cholesterol, Heart Disease, MO, Renal Disease, Other Additional Past Medical Histor: tardive dysk, renal insuff; morbid obesity; hyperuricemia; small bowel obst Past Surgical History: Cholecystectomy, Hysterectomy, Other Additional Past Surgical Histo: spleenectomy, CARDIAC STENTS Smoking: Non-smoker Alcohol Use: None Drug Use: None General Adult EDM: Chief Complaint: RECTAL BLEED HPI: HPI: ".. We just got out of hospital a month ago.. she had diverticulitis, C - dif and MO in the past few months.. we were trying to not come back in.. but she is so weak.. she been having bloody diapers today... a lot of blood .. and she looks so pale..." ".. All I know .. is I feel so weak..." Patient Patient is a 74 year old female who presents with history of bright red rectal bleeding and increased weakness. Patient recently discharged from [facility] last month with an episode of MO and C. difficile. Patient does have a history of past diverticulitis and C. difficile episodes. Patient reports multiple stools since started on antibiotic for urinary tract infection. Patient has a history of CHF, MIs, headaches, sleep apnea, not tardive dyskinesia, urinary tract infections, severe degenerative arthritis, depression, splenectomy, diverticulitis, pyelonephritis, pneumonitis, pneumonia, and deconditioning. Patient recently developed a UTI and was started on antibiotics. Patient has chase blood per rectum that is filled at diaper. Patient follows with Dr. Ge. Review of Systems: Review of Systems: Constitutional: Denies fever or chills Eyes: Denies change in visual acuity HENT: Denies nasal congestion or sore throat Respiratory: Denies cough or shortness of breath Cardiovascular: Denies chest pain or edema GI: Complains of nausea, bloody stools : Denies dysuria Musculoskeletal: Denies back pain or joint pain. Complains of generalized weakness Integument: Denies rash Neurologic: Denies headache, focal weakness or sensory changes Endocrine: Denies polyuria or polydipsia Lymphatic: Denies swollen glands Psychiatric: Denies depression or anxiety Family History: Family History: There is family history positive for polio and brother. Brother also has diabetes stomach cancer. Has a sister that has breast cancer hypertension and gallbladder issues. There is a history of depression and cardiovascular disease with sister. Current Medications: Current Meds: Current Medications Medications (Trade) Dose Ordered Sig/Kristin Start Time Stop Time Status Last Admin Dose Admin Diphenhydramine HCl (Benadryl) 25 mg 1X ONCE 06/19/20 22:30 06/19/20 22:31 UNV Famotidine (Pepcid Vial) 20 mg 1X ONCE 06/19/20 22:30 06/19/20 22:31 UNV Ondansetron HCl (Zofran) 8 mg 1X ONCE 06/19/20 22:30 06/19/20 22:31 UNV Sodium Chloride 1,000 ml @ 1,000 mls/hr 1X ONCE 06/19/20 22:30 06/19/20 23:29 UNV Allergies: Allergies: Allergies Coded Allergies Type Severity Reaction Last Updated Verified grapefruit Allergy Intermediate 04/19/19 Yes hydromorphone Allergy Intermediate 04/19/19 Yes metoclopramide Allergy Intermediate 04/19/19 Yes morphine Allergy Intermediate 04/19/19 Yes phenytoin Allergy Intermediate 04/19/19 Yes trazodone Allergy Intermediate 04/19/19 Yes zolpidem Allergy Intermediate 04/19/19 Yes Physical Exam: PE: Constitutional: in acute distress, non-toxic appearance. [] HENT: Normocephalic, atraumatic, bilateral external ears normal, oropharynx moist, no oral exudates, nose normal. [] Eyes: PERRLA, EOMI, conjunctiva pale, no discharge. [] Neck: Normal range of motion, no tenderness, supple, no stridor. [] Cardiovascular:Heart rate regular rhythm, no murmur [] PMI to left Lungs & Thorax: Bilateral breath sounds equal apex with basilar crackles bilaterally auscultation [] Abdomen: Bowel sounds hyperactive, soft, mild left lower quadrant tenderness, no masses, no pulsatile masses. Mild rebound left lower quadrant. Gross bright red blood per rectum. No obvious hemorrhoid or fissure Skin: Warm, dry, no erythema, no rash. [Very pale Back: No tenderness, no CVA tenderness. [] Extremities: No tenderness, no cyanosis, no clubbing, ROM intact, no edema. Arthritic changes. No cording appreciated. Neurologic: Alert and oriented X 3, moves all extremities on request, has decreased plantar sensory, no focal deficits noted. [] Psychologic: Affect anxious, judgement normal, mood normal. [] Current Patient Data: Vital Signs: Vital Signs Date Time Temp Pulse Resp B/P (MAP) Pulse Ox O2 Delivery O2 Flow Rate FiO2 06/19/20 22:19 98.3 88 16 95/48 (64) 98 Room Air EKG: EKG: [] Radiology/Procedures: Radiology/Procedures: [][address] [address] IMAGING REPORT Signed PATIENT: PAMELA CAIN ACCOUNT: [id number] : 1945 LOCATION: ER AGE: 74 SEX: F EXAM STATUS: REG ER ORD. PHYSICIAN: OTIS BOUDREAUX MD REASON: Abdomen pain, GI bleed.HX HERNIA, DIVERTICULITIS PROCEDURE: ACUTE ABDOMEN SERIES EXAM: Frontal view of the chest, AP views of the abdomen in upright and supine positions. CLINICAL INDICATION: Reason: Abdomen pain, GI bleed.HX HERNIA, DIVERTICULITIS / Spl. Instructions: / History: COMPARISON: None. FINDINGS and IMPRESSION: The heart is not enlarged. Mediastinal and hilar contours are normal. Patchy opacities left lung base possibly atelectasis although developing consolidation would have this appearance as well. No pleural effusion or pneumothorax. No abnormal small or large bowel dilatation. Moderate colonic stool content. No abnormal soft tissue mass effect. No suspicious calcifications are seen. No free intraperitoneal gas. Cholecystectomy clips are seen. Electronically signed by: Romario Johnson MD (06/19/2020 11:30 PM) [facility] DICTATED AND SIGNED BY: ROMARIO JOHNSON MD DATE: 06/19/20 9221 CC: JAYMIE GE MD; OTIS BOUDREAUX MD ~MTH0 0 Heart Score: C/O Chest Pain: N/A HEART Score for Chest Pain: HEART Score for Chest Pain Response (Comments) Value History Moderately Suspicious 1 ECG Nonspecific Repolarizatio 1 Age > 65 2 Risk Factors 1 or 2 Risk Factors 1 Troponin < Normal Limit 0 Total 5 Risk Factors: Risk Factors: DM, Current or recent (<one month) smoker, HTN, HLP, family history of CAD, obesity. Risk Scores: Score 0 - 3: 2.5% MACE over next 6 weeks - Discharge Home Score 4 - 6: 20.3% MACE over next 6 weeks - Admit for Clinical Observation Score 7 - 10: 72.7% MACE over next 6 weeks - Early Invasive Strategies Course & Med Decision Making: Course & Med Decision Making Pertinent Labs and Imaging studies reviewed. (See chart for details) Critical Care -90 min. eval and treatment, discussion with and pt. Discussed presentation, testing and treatment plan with Dr. Martinez. A ccepted at [facility] Impression: 1. GI bleeding- suspect lower - Diverticular vs AV malformation 2. Anemia Critical Hgb 7.0 3. Leukocytosis 16.5 4. Hyponatremia 135 5. Hyperkalemia 5.5 6. DM- 137 glucose 7. Renal Insuf. Creat 1.8 8. Malnutrition albumin 2.2 9. Recent history of C. difficile 10. History of diverticulitis [] Dragon Disclaimer: Dragon Disclaimer: This electronic medical record was generated, in whole or in part, using a voice recognition dictation system. Departure Departure: Referrals: JAYMIE GE MD (PCP) Karen Disclaimer This chart was dictated in whole or in part using Voice Recognition software in a busy, high-work load, and often noisy Emergency Department environment. It may contain unintended and wholly unrecognized errors or omissions. Dragon Disclaimer This chart was dictated in whole or in part using Voice Recognition software in a busy, high-work load, and often noisy Emergency Department environment. It may contain unintended and wholly unrecognized errors or omissions. OTIS BOUDREAUX MD Jun 19, 2020 22:32
[2020-06-19 22:42] LABS: CALCIUM 8.1 mg/dL (8.5-10.1); CREATININE 1.8 mg/dL (0.6-1.0); GFR 27.5; POTASSIUM 5.5 mmol/L (3.5-5.1)
[2020-06-19 22:46] LABS: ALBUMIN 2.2 g/dL (3.4-5.0); DIRECT BILIRUBIN 0.1 mg/dL (0.0-0.2); TOTAL BILIRUBIN 0.2 mg/dL (0.2-1.0)
[2020-06-19] MEDS: IV NORMAL SALINE 1,000ML 1,000 ML IV ONE (22:57)
[2020-06-19] MEDS: diphenhydrAMINE 50 MG/ML VIAL IV ONE (22:58)
[2020-06-19] MEDS: ONDANSETRON PF 4 MG/2 ML VIAL. IVP ONE (22:58)
[2020-06-19] MEDS: FAMOTIDINE 20 MG/2 ML VIAL IVP ONE (22:58)
[2020-06-19 23:06] LABS: BASO # 0.1 x10^3/uL (0.0-0.2); BASO % 1 % (0-3); EOS # 0.5 x10^3/uL (0.0-0.7); EOS % 3 % (0-3); HEMATOCRIT 22.8 % (36.0-47.0); LYMPH # 5.6 x10^3/uL (1.0-4.8); LYMPH % 34 % (24-48); MEAN CORPUSCULAR HEMOGLOBIN 28 pg (25-35); MEAN CORPUSCULAR HGB CONC 31 g/dL (31-37); MEAN CORPUSCULAR VOLUME 91 fL (79-100); MONO # 1.9 x10^3/uL (0.0-1.1); MONO % 12 % (0-9); NEUT # 8.3 x10^3uL (1.8-7.7); NEUT % 51 % (31-73); PLATELET COUNT 566 x10^3/uL (140-400); RED BLOOD COUNT 2.49 x10^6/uL (3.50-5.40); RED CELL DISTRIBUTION WIDTH 18.1 % (11.5-14.5); WHITE BLOOD COUNT 16.5 x10^3/uL (4.0-11.0)
--- NOTE | 2020-06-19 23:14 | EKG ---
[facility] [address] [place] [address] Test Date: 2020-06-19 Test Time: 23:04:48 Pat Name: PAMELA CAIN Department: Room: Gender: F Barrel Header: MILADYS : 1945 Requested By: OTIS BOUDREAUX Order Number: [id number] Reading MD: Measurements Intervals [place] Rate: 90 P: 54 SC: 170 QRS: -20 QRSD: 58 T: 77 QT: 364 QTc: 449 Interpretive Statements SINUS RHYTHM LEFTWARD AXIS LOW VOLTAGE QRS(T) CONTOUR ABNORMALITY CONSISTENT WITH ANTEROSEPTAL INFARCT PROBABLY OLD CONSISTENT WITH INFERIOR INFARCT PROBABLY OLD T ABNORMALITY IN HIGH LATERAL LEADS ABNORMAL ECG RI6.02 No previous ECG available for comparison
[2020-06-19 23:19] LABS: BILIRUBIN,URINE NEG (NEG); CLARITY,URINE CLEAR; COLOR,URINE STRAW; GLUCOSE,URINE NEG (NEG); NITRITE,URINE NEG (NEG); RBC,URINE OCC /HPF (0-2); UROBILINOGEN,URINE 0.2 mg/dL (0.2 mg/dL)
[2020-06-19 23:20] LABS: BACTERIA,URINE FEW /HPF (0-FEW); SQUAMOUS EPITHELIAL CELL,UR OCC /LPF; WBC,URINE 0 /HPF (0-4)
[2020-06-19] MEDS: metroNIDAZOLE 500 MG TABLET PO ONE (23:30)
[2020-06-19] MEDS: oxyCODONE/APAP 5/325 1 TAB TABLET PO ONE (23:30)
[2020-06-19] MEDS ORDERED: ACETAMINOPHEN 325 MG TABLET PO PRN (23:30)
--- NOTE | 2020-06-19 23:33 | RAD ---
EXAM: Frontal view of the chest, AP views of the abdomen in upright and supine positions. CLINICAL INDICATION: Reason: Abdomen pain, GI bleed.HX HERNIA, DIVERTICULITIS / Spl. Instructions: / History: COMPARISON: None. FINDINGS and IMPRESSION: The heart is not enlarged. Mediastinal and hilar contours are normal. Patchy opacities left lung base possibly atelectasis although developing consolidation would have this appearance as well. No pleura l effusion or pneumothorax. No abnormal small or large bowel dilatation. Moderate colonic stool content. No abnormal soft tissu e mass effect. No suspicious calcifications are seen. No free intraperitoneal gas. Cholecystectomy clips are seen. Electronically signed by: Romario Tyler MD (06/19/2020 11:30 PM) JOHN
[2020-06-19] MEDS ORDERED: VANCOMYCIN 1 GM VIAL. ONE (23:39)
[2020-06-19] MEDS ORDERED: IV NORMAL SALINE 250ML 250 ML ONE (23:39)
[2020-06-19] MEDS: VANCOMYCIN 1 GM in IV NORMAL SALINE 250ML 250 ML IV ONE (23:42)
[2020-06-19 23:49] LABS: % ATYL 5 % (0-0); % BANDS 1 % (0-9); % BASOS 3 % (0-3); % EOS 1 % (0-5); % LYMPHS 33 % (24-48); % MONOS 9 % (0-10); % SEGS 48 % (35-66); ANISOCYTOSIS PRESENT; HYPOCHROMIA PRESENT; MICROCYTOSIS PRESENT; PLT ESTIMATE INCREASED (ADEQUATE)
[2020-06-20 00:39] VITALS: BP 99/47
== END 2020-06-20 00:52 | disposition short-term general hospital (02) ==
LOC: ER 21:53
DX: K92.2 Gastrointestinal hemorrhage, unspecified (principal); D64.9 Anemia, unspecified; D72.829 Elevated white blood cell count, unspecified; E87.1 Hypo-osmolality and hyponatremia; E87.5 Hyperkalemia; E46 Unspecified protein-calorie malnutrition; F32.9 Major depressive disorder, single episode, unspecified; K21.9 Gastro-esophageal reflux disease without esophagitis; E78.00 Pure hypercholesterolemia, unspecified; I25.2 Old myocardial infarction; I51.9 Heart disease, unspecified; Z90.49 Acquired absence of other specified parts of digestive tract; Z90.710 Acquired absence of both cervix and uterus; Z98.890 Other specified postprocedural states; Z91.018 Allergy to other foods; Z88.5 Allergy status to narcotic agent; Z88.6 Allergy status to analgesic agent; Z88.8 Allergy status to other drugs, medicaments and biological substances
CPT/HCPCS: 36415; 74022; 80048; 80076; 81001; 82550; 83690; 84484; 85007; 85025; 85610; 85730; 86850; 86900; 86901; 93005; 96361; 96365; 96375; 99291; 99292; J1200; J2405; J3370; J3490; J7030; J7050; P9612; 86920

== ENCOUNTER 2020-07-23 15:07 | Inpatient (IN) | payer MEDICARE, OTHER ==
[~2020-07-23] VITALS: Ht 144.8 cm; Wt 63.1 kg
[2020-07-23] MEDS ORDERED: IV NORMAL SALINE 1,000ML 1,000 ML IV ONE (16:15)
[2020-07-23 16:59] LABS: CALCIUM 9.7 mg/dL (8.5-10.1); CREATININE 1.9 mg/dL (0.6-1.0); GFR 25.8
[2020-07-23 17:02] LABS: BASO # 0.1 x10^3/uL (0.0-0.2); BASO % 1 % (0-3); EOS # 0.3 x10^3/uL (0.0-0.7); EOS % 2 % (0-3); HEMATOCRIT 29.8 % (36.0-47.0); HEMOGLOBIN 9.7 g/dL (12.0-15.5); LYMPH # 5.7 x10^3/uL (1.0-4.8); LYMPH % 35 % (24-48); MEAN CORPUSCULAR HEMOGLOBIN 29 pg (25-35); MEAN CORPUSCULAR HGB CONC 33 g/dL (31-37); MEAN CORPUSCULAR VOLUME 88 fL (79-100); MONO # 1.4 x10^3/uL (0.0-1.1); MONO % 9 % (0-9); NEUT % 54 % (31-73); PLATELET COUNT 694 x10^3/uL (140-400); RED BLOOD COUNT 3.39 x10^6/uL (3.50-5.40); RED CELL DISTRIBUTION WIDTH 15.9 % (11.5-14.5); WHITE BLOOD COUNT 16.5 x10^3/uL (4.0-11.0)
--- NOTE | 2020-07-23 17:05 | EKG ---
[address] [address] Test Date: 2020-07-23 Test Time: 16:28:28 Pat Name: PAMELA CAIN Department: Room: Gender: F Data Processing Specialist: : 1945 Requested By: PADMINI SIFUENTES Order Number: [id number] Reading MD: Measurements Intervals [place] Rate: 88 P: 47 MT: 160 QRS: -21 QRSD: 68 T: 68 QT: 370 QTc: 451 Interpretive Statements SINUS RHYTHM LEFTWARD AXIS QRS(T) CONTOUR ABNORMALITY CONSISTENT WITH INFERIOR INFARCT PROBABLY OLD T ABNORMALITY IN HIGH LATERAL LEADS ABNORMAL ECG RI6.02 No previous ECG available for comparison
--- NOTE | 2020-07-23 17:08 | PHYS DOC ---
Past History Past Medical History: Anemia, CAD, Depression, Diverticulitis, Diabetes, GERD, GI Bleed, High Cholesterol, Heart Disease, DE, Renal Disease, Other Additional Past Medical Histor: tardive dysk, renal insuff; morbid obesity; hyperuricemia; small bowel obst (PADMINI SIFUENTES MD) Past Surgical History: Cholecystectomy, Hysterectomy, Other Additional Past Surgical Histo: spleenectomy, CARDIAC STENTS (PADMINI SIFUENTES MD) Smoking: Non-smoker Alcohol Use: None Drug Use: None (PADMINI SIFUENTES MD) General Adult EDM: Chief Complaint: HYPERGLYCEMIA HPI: HPI: Patient is a 74-year-old female sent over her primary care provider for hyperglycemia and possible dehydration. Patient was there because she had had 2 episodes of vomiting yesterday followed by dry heaving this morning, and also having decreased p.o. intake. Patient was also there for complaints of her chronic arthritis that is not responding to Tylenol. Patient's blood glucose in the office was over 300, she was given 15 units of insulin as her prior hour, repeat glucose just under 300. Patient denies any diarrhea, fevers, change in urination. (PADMINI SIFUENTES MD) Review of Systems: Review of Systems: All other systems within normal limits except for as noted in the HPI (PADMINI SIFUENTES MD) Current Medications: Current Meds: Current Medications Medications (Trade) Dose Ordered Sig/[facility] Start Time Stop Time Status Last Admin Dose Admin Sodium Chloride 1,000 ml @ 1,000 mls/hr 1X ONCE 07/23/20 16:15 07/23/20 17:14 07/23/20 16:15 1,000 MLS/HR (PADMINI SIFUENTES MD) Allergies: Allergies: Allergies Coded Allergies Type Severity Reaction Last Updated Verified grapefruit Allergy Intermediate 07/23/20 Yes hydromorphone Allergy Intermediate 07/23/20 Yes metoclopramide Allergy Intermediate 07/23/20 Yes morphine Allergy Intermediate 07/23/20 Yes phenytoin Allergy Intermediate 07/23/20 Yes trazodone Allergy Intermediate 07/23/20 Yes zolpidem Allergy Intermediate 07/23/20 Yes (PADMINI SIFUENTES MD) Physical Exam: PE: Constitutional: Well developed, well nourished, no acute distress, non-toxic appearance. [] HENT: Normocephalic, atraumatic, bilateral external ears normal, nose normal. [] Eyes: PERRLA, conjunctiva normal, no discharge. [] Neck: No rigidity, supple, no stridor. [] Cardiovascular: Regular rate and rhythm, brisk cap refill [] Lungs & Thorax: Non labored symmetric respirations, no tachypnea or respiratory distress [] Abdomen: Soft, nondistended, left lower quadrant tenderness.. Skin: Warm, dry, no erythema, no rash. [] Back: Unremarkable Extremities: No deformities, range of motion grossly intact, no lower extremity edema [] Neurologic: Alert and oriented X 3, no focal deficits noted. [] Psychologic: Affect normal, judgement normal, mood normal. [] (PADMINI SIFUENTES MD) Current Patient Data: Labs: Laboratory Tests Test 07/23/20 15:41 Glucose (Fingerstick) 237 mg/dL (70-99) H Vital Signs: Vital Signs Date Time Temp Pulse Resp B/P (MAP) Pulse Ox O2 Delivery O2 Flow Rate FiO2 07/23/20 15:20 98.1 96 18 134/63 (86) 95 (PADMINI SIFUENTES MD) EKG: EKG: Sinus rhythm with a heart rate of 88 bpm, left axis deviation, no ST elevation or depression, no ectopy. [] (PADMINI SIFUENTES MD) Radiology/Procedures: Radiology/Procedures: EXAM: CT Abdomen and Pelvis without IV contrast CLINICAL HISTORY: LLQ pain COMPARISON: 05/27/2020 04/08/2019 TECHNIQUE: Helical CT of the abdomen and pelvis without intravenous contrast. Axial, coronal and sagittal reformatted images were generated. PQRS compliance statement - One or more of the following individualized dose reduction techniques were utilized for this study: 1. Automated exposure control 2. Adjustment of the mA and/or kV according to patient size 3. Use of iterative reconstruction technique FINDINGS: Lack of intravenous contrast limits evaluation of solid organs, vasculature, and lymph nodes. Lower chest: Heart is not enlarged. Aortic root, coronary artery calcifications. Abdomen and Pelvis: Cholecystectomy clips are seen. No biliary dilatation. No focal liver lesion. Pancreas is unremarkable. Spleen is not seen. Adrenal glands are normal. Prominent to borderline enlarged retroperitoneal and right upper quadrant lymph nodes are seen. For example a portacaval lymph node measures 3 x 1.4 cm. Aortic calcifications are seen. Aorta is normal in caliber. Appendix is normal. Moderate to large volume colonic stool content. Ventral abdominal hernias, in the periumbilical region 2 ventral abdominal hernia are seen containing small and large bowel without associated inflammatory change or loculated fluid collection. Fat-containing ventral abdominal hernia superiorly. No bowel obstruction. Region of colonic wall thickening in the sigmoid colon. There has been a hysterectomy. Bones: Degenerative changes of the spine are seen. Hip joint degenerative changes are seen. IMPRESSION: 1. Region of colonic wall thickening of the sigmoid colon, may represent focal colitis although underlying colonic mass is not excluded and can be correlated with colonoscopy if not recently performed. 2. Ventral abdominal hernias containing small or large bowel without associated obstruction or inflammatory change. 3. Mildly enlarged right upper quadrant lymph nodes including a portacaval lymp h node measuring 1.4 cm short axis. 4. Accounting for postcholecystectomy change, no biliary ductal dilatation. [] (PADMINI SIFUENTES MD) Radiology/Procedures: [place] [address] IMAGING REPORT Signed PATIENT: PAMELA CAIN ACCOUNT: [id number] : 1945 LOCATION: ER AGE: 74 SEX: F EXAM STATUS: REG ER ORD. PHYSICIAN: PADMINI SIFUENTES MD REASON: LLQ pain PROCEDURE: CT ABDOMEN PELVIS WO CONTRAST EXAM: CT Abdomen and Pelvis without IV contrast CLINICAL HISTORY: LLQ pain COMPARISON: 05/27/2020 04/08/2019 TECHNIQUE: Helical CT of the abdomen and pelvis without intravenous contrast. Axial, coronal and sagittal reformatted images were generated. PQRS compliance statement - One or more of the following individualized dose reduction techniques were utilized for this study: 1. Automated exposure control 2. Adjustment of the mA and/or kV according to patient size 3. Use of iterative reconstruction technique FINDINGS: Lack of intravenous contrast limits evaluation of solid organs, vasculature, and lymph nodes. Lower chest: Heart is not enlarged. Aortic root, coronary artery calcifications. Abdomen and Pelvis: Cholecystectomy clips are seen. No biliary dilatation. No focal liver lesion. Pancreas is unremarkable. Spleen is not seen. Adrenal glands are normal. Prominent to borderline enlarged retroperitoneal and right upper quadrant lymph nodes are seen. For example a portacaval lymph node measures 3 x 1.4 cm. Aortic calcifications are seen. Aorta is normal in caliber. Appendix is normal. Moderate to large volume colonic stool content. Ventral abdominal hernias, in the periumbilical region 2 ventral abdominal hernia are seen containing small and large bowel without associated inflammatory change or loculated fluid co llection. Fat-containing ventral abdominal hernia superiorly. No bowel obstruction. Region of colonic wall thickening in the sigmoid colon. There has been a hysterectomy. Bones: Degenerative changes of the spine are seen. Hip joint degenerative changes are seen. IMPRESSION: 1. Region of colonic wall thickening of the sigmoid colon, may represent focal colitis although underlying colonic mass is not excluded and can be correlated with colonoscopy if not recently performed. 2. Ventral abdominal hernias containing small or large bowel without associated obstruction or inflammatory change. 3. Mildly enlarged right upper quadrant lymph nodes including a portacaval lymph node measuring 1.4 cm short axis. 4. Accounting for postcholecystectomy change, no biliary ductal dilatation. Electronically signed by: Romario Johnson MD (07/23/2020 6:27 PM) [facility] DICTATED AND SIGNED BY: ROMARIO JOHNSON MD DATE: 07/23/201814 CC: PADMINI SIFUENTES MD; JAYMIE GE MD; OTIS BOUDREAUX MD ~MTH0 0 (OTIS BOUDREAUX MD) Heart Score: C/O Chest Pain: No Risk Factors: Risk Factors: DM, Current or recent (<one month) smoker, HTN, HLP, family history of CAD, obesity. Risk Scores: Score 0 - 3: 2.5% MACE over next 6 weeks - Discharge Home Score 4 - 6: 20.3% MACE over next 6 weeks - Admit for Clinical Observation Score 7 - 10: 72.7% MACE over next 6 weeks - Early Invasive Strategies (PADMINI SIFUENTES MD) Course & Med Decision Making: Course & Med Decision Making Pertinent Labs and Imaging studies reviewed. (See chart for details) [] (PADMINI SIFUENTES MD) Course & Med Decision Making See Dr. Sifuentes reports for detail s prior shift change. CT- currently pending. Plan to admit to Dr. Ge if not a surgical etiology. CT impression= 1. Region of colonic wall thickening of sigmoid, colitis vs mass ( need for colonscopy if not recently preformed- last colonscopy 5 yrs ago) 2. Ventral Hernia-= has small and large bowel, without obstruction or inflammat ory changes 3. Lymphnode portacaval 1.4 cm short axis 4. Post cholecystectomy change with no bilary ductal dilation. Impression; 1. Abdomen Pain 2. Nausea and vomiting 3. Dehydration 4. Localized Colitis Admitted to Aniceto Martinez., (OTIS BOUDREAUX MD) Dragon Disclaimer: Karen Disclaimer: This electronic medical record was generated, in whole or in part, using a voice recognition dictation system. (PADMINI SIFUENTES MD) Departure Departure: Impression: Primary Impression: Hyperglycemia Additional Impressions: Dehydration GHASSAN (acute kidney injury) Disposition: ADMITTED INPATIENT Admitting Physician: Jaymie Ge (PADMINI SIFUENTES MD) Condition: STABLE Referrals: JAYMIE GE MD (PCP) PADMINI SIFUENTES MD Jul 23, 2020 17:08 OTIS BOUDREAUX MD Jul 23, 2020 18:13
[2020-07-23 17:11] LABS: ALBUMIN 3.5 g/dL (3.4-5.0); ALBUMIN/GLOBULIN RATIO 0.6 (1.0-1.7); MAGNESIUM 1.4 mg/dL (1.8-2.4); TOTAL BILIRUBIN 0.1 mg/dL (0.2-1.0); TOTAL PROTEIN 9.3 g/dL (6.4-8.2)
[2020-07-23 17:28] LABS: CLARITY,URINE CLEAR; COLOR,URINE YELLOW
[2020-07-23 17:31] LABS: BILIRUBIN,URINE NEG (NEG); GLUCOSE,URINE NEG (NEG); NITRITE,URINE NEG (NEG); UROBILINOGEN,URINE 0.2 mg/dL (0.2 mg/dL)
[2020-07-23 17:32] LABS: BACTERIA,URINE FEW /HPF (0-FEW); RBC,URINE 0 /HPF (0-2); SQUAMOUS EPITHELIAL CELL,UR OCC /LPF; WBC,URINE OCC /HPF (0-4)
[2020-07-23] MEDS ORDERED: ACETAMINOPHEN 325 MG TABLET PO PRN (17:45)
[2020-07-23] MEDS ORDERED: ONDANSETRON PF 4 MG/2 ML VIAL. IVP PRN (17:45)
[2020-07-23 17:47] LABS: % BANDS 2 % (0-9); % EOS 1 % (0-5); % LYMPHS 28 % (24-48); % MONOS 7 % (0-10); % SEGS 62 % (35-66)
[2020-07-23 17:48] LABS: PLT ESTIMATE INCREASED (ADEQUATE)
[2020-07-23] MEDS ORDERED: IV NORMAL SALINE 50ML 50 ML ONE (18:02)
[2020-07-23] MEDS ORDERED: cefTRIAXone SODIUM 1 GM VIAL ONE (18:03)
--- NOTE | 2020-07-23 18:29 | RAD ---
EXAM: CT Abdomen and Pelvis without IV contrast CLINICAL HISTORY: LLQ pain COMPARISON: 05/27/2020 04/08/2019 TECHNIQUE: Helical CT of the abdomen and pelvis without intravenous contrast. Axial, coronal and sagi ttal reformatted images were generated. PQRS compliance statement - One or more of the following individualized dose reduction techniques wer e utilized for this study: 1. Automated exposure control 2. Adjustment of the mA and/or kV according to patient size 3. Use of iterative reconstruction technique FINDINGS: Lack of intravenous contrast limits evaluation of solid organs, vasculature, and lymph nodes. Lower chest: Heart is not enlarged. Aortic root, coronary artery calcifications. Abdomen and Pelvis: Cholecystectomy clips are seen. No biliary dilatation. No focal liver lesion. Pancreas is unremarkabl e. Spleen is not seen. Adrenal glands are normal. Prominent to borderline enlarged retroperitoneal an d right upper quadrant lymph nodes are seen. For example a portacaval lymph node measures 3 x 1.4 cm. Aortic calcifications are seen. Aorta is normal in caliber. Appendix is normal. Moderate to large vol ume colonic stool content. Ventral abdominal hernias, in the periumbilical region 2 ventral abdominal hernia are seen containing small and large bowel without associated inflammatory change or loculated fluid collection. Fat-containing ventral abdominal hernia superiorly. No bowel obstruction. Region o f colonic wall thickening in the sigmoid colon. There has been a hysterectomy. Bones: Degenerative changes of the spine are seen. Hip joint degenerative changes are seen. IMPRESSION: 1. Region of colonic wall thickening of the sigmoid colon, may represent focal colitis although unde rlying colonic mass is not excluded and can be correlated with colonoscopy if not recently performed. 2. Ventral abdominal hernias containing small or large bowel without associated obstruction or infla mmatory change. 3. Mildly enlarged right upper quadrant lymph nodes including a portacaval lymph node measuring 1.4 cm short axis. 4. Accounting for postcholecystectomy change, no biliary ductal dilatation. Electronically signed by: Romario Tyler MD (07/23/2020 6:27 PM) [facility]
[2020-07-23] MEDS: IV NORMAL SALINE 1,000ML 1,000 ML IV SCH (20:30)
[2020-07-23 20:38] VITALS: BP_SYST 132; BP_SYST 69; BP_DIAS 69
[2020-07-23] MEDS: INSULIN GLARGINE SYRINGE. SQ SCH ×2 (21:00→23:08)
[2020-07-23] MEDS ORDERED: ACET325T9 PO (21:21)
[2020-07-23] MEDS ORDERED: FLUT9.9S NS (21:21)
[2020-07-23] MEDS ORDERED: CLON0.5T4 PO (21:21)
[2020-07-23] MEDS ORDERED: BUPR150T21 PO (21:21)
[2020-07-23] MEDS ORDERED: METO1TAB11 PO (21:21)
[2020-07-23] MEDS ORDERED: CARB15DR3 EACHEYE (21:21)
[2020-07-23] MEDS ORDERED: GALCANEZUMAB GNLM 120 MG SQ SCH (21:30)
[2020-07-23] MEDS ORDERED: ALBUTEROL SULFATE 2.5 MG/3 ML NEBU. INH PRN (21:30)
[2020-07-23 22:19] VITALS: BP 133/78
[2020-07-23] MEDS: TEMAZEPAM 15 MG CAPSULE PO PRN (22:53)
[2020-07-23] MEDS: buPROPion SR 150 MG TABLET.SA PO SCH (22:53)
[2020-07-23] MEDS: clonazePAM 0.5 MG TABLET PO SCH (22:53)
[2020-07-23] MEDS: rOPINIRole 1 MG TABLET. PO SCH (22:54)
[2020-07-23] MEDS: ATORVASTATIN CALCIUM 10 MG TABLET. PO SCH (22:54)
[2020-07-24 05:41] VITALS: BP 142/75
[2020-07-24] MEDS: IV NORMAL SALINE 1,000ML 1,000 ML IV SCH ×2 (05:45→09:45)
[2020-07-24] MEDS: rOPINIRole 1 MG TABLET. PO SCH ×3 (06:16→21:21)
[2020-07-24 06:50] LABS: BASO # 0.1 x10^3/uL (0.0-0.2); BASO % 1 % (0-3); EOS # 0.4 x10^3/uL (0.0-0.7); EOS % 3 % (0-3); HEMATOCRIT 26.8 % (36.0-47.0); HEMOGLOBIN 8.4 g/dL (12.0-15.5); LYMPH # 5.6 x10^3/uL (1.0-4.8); LYMPH % 41 % (24-48); MEAN CORPUSCULAR HEMOGLOBIN 28 pg (25-35); MEAN CORPUSCULAR HGB CONC 32 g/dL (31-37); MEAN CORPUSCULAR VOLUME 90 fL (79-100); MONO # 1.3 x10^3/uL (0.0-1.1); MONO % 10 % (0-9); NEUT # 6.2 x10^3uL (1.8-7.7); NEUT % 45 % (31-73); PLATELET COUNT 593 x10^3/uL (140-400); RED BLOOD COUNT 2.99 x10^6/uL (3.50-5.40); WHITE BLOOD COUNT 13.7 x10^3/uL (4.0-11.0)
[2020-07-24 06:59] LABS: CALCIUM 8.6 mg/dL (8.5-10.1); CREATININE 1.2 mg/dL (0.6-1.0); GFR 43.9
[2020-07-24] MEDS: CETIRIZINE HCL 10 MG TABLET PO SCH (08:17)
[2020-07-24] MEDS: PANTOPRAZOLE 40 MG TABLET. PO SCH (08:18)
[2020-07-24] MEDS: hydroCHLOROthiazide 12.5 MG CAPSULE PO SCH (08:18)
[2020-07-24] MEDS: amLODIPine BESYLATE 5 MG TABLET PO SCH (08:18)
[2020-07-24] MEDS: buPROPion SR 150 MG TABLET.SA PO SCH ×2 (08:18→21:21)
[2020-07-24] MEDS: FLUTICASONE 50MCG/NASAL SPRAY 16GM BOTTLE. NS SCH (08:18)
[2020-07-24] MEDS: MONTELUKAST 10 MG TABLET. PO SCH (08:18)
[2020-07-24] MEDS: INSULIN LISPRO 300 UNITS/3 ML VIAL. SQ SCH ×3 (08:23→16:38)
[2020-07-24] MEDS ORDERED: [UNRECOGNIZED DRUG - OTHER] PO SCH (09:00)
[2020-07-24] MEDS ORDERED: METOPROLOL PO SCH (09:00)
[2020-07-24] MEDS ORDERED: ASPIRIN CHEWABLE 81 MG TABLET. PO SCH (09:00)
[2020-07-24] MEDS ORDERED: POLYVINYL ALCOHOL/POVIDONE/PF OPHTH SOLUTION DROPERETTE. OU SCH (09:00)
[2020-07-24] MEDS ORDERED: HYDROCHLOROTHIAZIDE PO SCH (09:00)
[2020-07-24] MEDS: ONDANSETRON ODT 4 MG TAB.RAPDIS PO PRN (09:10)
[2020-07-24] MEDS: METOPROLOL TART IMMED RELEASE 25 MG TABLET. PO SCH (09:10)
[2020-07-24] MEDS: INSULIN GLARGINE SYRINGE. SQ SCH ×2 (09:58→21:45)
[2020-07-24] MEDS ORDERED: levoFLOXacin PER PHARMACY 1 EACH. MC PRN (10:30)
[2020-07-24 10:39] VITALS: BP 138/77
[2020-07-24] MEDS: DICLOFENAC SODIUM 1% TOPICAL GEL 100GM TUBE. TP SCH ×2 (11:00→21:45)
[2020-07-24 14:33] VITALS: BP 119/64
[2020-07-24] MEDS: ACETAMINOPHEN 325 MG TABLET PO PRN ×2 (16:35→22:30)
[2020-07-24 16:37] LABS: FECAL OB PT POSITIVE (NEG)
[2020-07-24] MEDS ORDERED: ELECTROLYTE (NON-ICU) PROTOCOL. MC PRN (18:45)
[2020-07-24 19:00] VITALS: BP 125/68
--- NOTE | 2020-07-24 20:07 | RAD ---
Exam: CT head INDICATION: Left-sided facial droop TECHNIQUE: Sequential axial images through the head were obtained without the administration of IV co ntrast. Comparisons: 02/23/2019 FINDINGS: No focal parenchymal lesion or hemorrhage is identified. There is no midline shift or sulcal effaceme nt. No acute vascular territory infarction is identified. Salazar-white distinction is preserved. The ventricular system is within normal limits without compression hydrocephalus. The basal cisterns are well maintained. The visualized portions of the paranasal sinuses and mastoid air cells are well-pneumatized. No acute fractures. IMPRESSION: No acute intracranial abnormality. Exposure: One or more of the following in the visualized dose reduction techniques were utilized for this examination: 1. Automated exposure control 2. Adjustment of the MA and/or KV according to patient size Use of iterative of reconstructive technique Electronically signed by: Lexx Hagen MD (07/24/2020 8:05 PM) [facility]
--- NOTE | 2020-07-24 20:57 | PN ---
DATE: 07/23/2020 SUBJECTIVE: The patient admitted with abdominal pain, nausea, vomiting and dehydration, developed a left facial droop. We will get CT scan, carotid Dopplers on her. The patient also was noted to have problems with left lower quadrant pain. CT scan shows colitis, elevated white count of 16,000. The patient was placed on IV antibiotic therapy there. OBJECTIVE: VITAL SIGNS: Blood pressure 133/70, respiratory rate 20, pulse 70, afebrile, 97% on room air. 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 Because her hemoglobin dropped, we will put her on a blood thinner, but use compression hoses. Otherwise, the patient says she is still having a little bit of pain in the left lower quadrant, but improved. LUNGS: Diminished throughout, poor movement of air. CARDIOVASCULAR: Regular sinus rhythm. ABDOMEN: Soft, diffuse tenderness primarily in the left lower quadrant. EXTREMITIES: No clubbing, cyanosis, nor edema. NEUROLOGIC: The patient's baseline except for the facial droop and slurping of her words to some degree. We will go ahead and get a CT scan and make further evaluation once that is available. IMPRESSION: Colitis, nausea, dehydration, type 2 diabetes, facial droop, low magnesium, acute on chronic renal failure. PLAN: Continue with mild fluids as well as IV antibiotic therapy. See results of CTs and carotid Dopplers as indicated. JAYMIE GE MD DR: MAURIZIO/luis angel JOB#: [id number] / [id number]
[2020-07-24] MEDS: POLYVINYL ALCOHOL/POVIDONE/PF OPHTH SOLUTION DROPERETTE. OU PRN (21:21)
[2020-07-24] MEDS: clonazePAM 0.5 MG TABLET PO SCH (21:21)
[2020-07-24] MEDS: ATORVASTATIN CALCIUM 10 MG TABLET. PO SCH (21:21)
[2020-07-24] MEDS: LACTOBACILLUS RHAMNOSUS GG 1 CAPSULE. PO SCH (21:21)
[2020-07-25] MEDS: rOPINIRole 1 MG TABLET. PO SCH ×3 (06:15→21:53)
[2020-07-25 06:24] VITALS: BP 156/83
[2020-07-25 07:04] LABS: BASO # 0.1 x10^3/uL (0.0-0.2); BASO % 1 % (0-3); EOS # 0.4 x10^3/uL (0.0-0.7); EOS % 3 % (0-3); HEMATOCRIT 26.9 % (36.0-47.0); HEMOGLOBIN 8.8 g/dL (12.0-15.5); LYMPH # 5.4 x10^3/uL (1.0-4.8); LYMPH % 41 % (24-48); MEAN CORPUSCULAR HEMOGLOBIN 29 pg (25-35); MEAN CORPUSCULAR HGB CONC 33 g/dL (31-37); MEAN CORPUSCULAR VOLUME 89 fL (79-100); MONO # 1.2 x10^3/uL (0.0-1.1); MONO % 10 % (0-9); NEUT # 5.8 x10^3uL (1.8-7.7); NEUT % 45 % (31-73); PLATELET COUNT 636 x10^3/uL (140-400); RED BLOOD COUNT 3.02 x10^6/uL (3.50-5.40); RED CELL DISTRIBUTION WIDTH 16.2 % (11.5-14.5); WHITE BLOOD COUNT 12.9 x10^3/uL (4.0-11.0)
[2020-07-25 07:05] LABS: ALBUMIN 2.9 g/dL (3.4-5.0); CALCIUM 8.9 mg/dL (8.5-10.1); CREATININE 1.1 mg/dL (0.6-1.0); GFR 48.6; PHOSPHORUS 4.1 mg/dL (2.6-4.7); POTASSIUM 4.3 mmol/L (3.5-5.1)
--- NOTE | 2020-07-25 08:13 | RAD ---
EXAM: Carotid Doppler sonogram. HISTORY: Facial droop. Atherosclerosis. TECHNIQUE: Salazar scale and color Doppler sonographic evaluation of the neck with spectral waveform kristen lysis was performed and static images are submitted for review. FINDINGS: There is mild atherosclerotic plaque involving the carotid bifurcations. The peak systolic velocity within the right common carotid artery is 111 cm/sec. The peak systolic ve locity within the right internal carotid artery is 133 cm/sec and the end diastolic velocity within t he right internal carotid artery is 32 cm/sec. The right ICA/CCA ratio is 1.9. The peak systolic velocity within the left common carotid artery is 65 cm/sec. The peak systolic [place] within the left internal carotid artery is 63 cm/sec and the end diastolic velocity within the l eft internal carotid artery is 24 cm/sec. The left ICA/CCA ratio is 1.0. There is normal antegrade flow within both vertebral arteries. IMPRESSION: 1. Doppler findings suggesting 50-69 percent stenosis involving the left ICA and less than 50 percent stenosis involving the right ICA. 2. Mild atherosclerotic plaque involving the carotid bifurcations. PQRS Compliance Statement - Stenosis calculations for CT, MR and conventional angiography are based u lizet measurement of the distal ICA diameter in accordance with the NASCET methodology. Stenosis calcu lations for carotid ultrasound studies are derived from validated velocity criteria which are known t o correlate with the NASCET methodology. Electronically signed by: Kaleigh Shanks MD (07/25/2020 8:11 AM) [id number]
[2020-07-25] MEDS: MONTELUKAST 10 MG TABLET. PO SCH (08:39)
[2020-07-25] MEDS: CETIRIZINE HCL 10 MG TABLET PO SCH (08:39)
[2020-07-25] MEDS: buPROPion SR 150 MG TABLET.SA PO SCH ×2 (08:39→21:53)
[2020-07-25] MEDS: hydroCHLOROthiazide 12.5 MG CAPSULE PO SCH (08:40)
[2020-07-25] MEDS: FLUTICASONE 50MCG/NASAL SPRAY 16GM BOTTLE. NS SCH (08:40)
[2020-07-25] MEDS: METOPROLOL TART IMMED RELEASE 25 MG TABLET. PO SCH (08:40)
[2020-07-25] MEDS: amLODIPine BESYLATE 5 MG TABLET PO SCH (08:40)
[2020-07-25] MEDS: LACTOBACILLUS RHAMNOSUS GG 1 CAPSULE. PO SCH ×2 (08:40→21:53)
[2020-07-25] MEDS: DICLOFENAC SODIUM 1% TOPICAL GEL 100GM TUBE. TP SCH ×2 (08:41→21:52)
[2020-07-25] MEDS: PANTOPRAZOLE 40 MG TABLET. PO SCH (08:42)
[2020-07-25] MEDS: INSULIN LISPRO 300 UNITS/3 ML VIAL. SQ SCH ×3 (08:50→17:30)
[2020-07-25] MEDS: ACETAMINOPHEN 325 MG TABLET PO PRN ×2 (09:38→21:53)
[2020-07-25] MEDS: ONDANSETRON ODT 4 MG TAB.RAPDIS PO PRN ×3 (09:38→21:52)
[2020-07-25] MEDS: INSULIN GLARGINE SYRINGE. SQ SCH ×2 (09:45→21:52)
[2020-07-25 10:00] VITALS: BP 123/68
[2020-07-25] MEDS ORDERED: ALBUTEROL SULFATE 2.5 MG/3 ML NEBU. INH PRN (11:42)
[2020-07-25 16:04] VITALS: BP 121/55
[2020-07-25 20:23] VITALS: BP 137/83
[2020-07-25] MEDS: POLYVINYL ALCOHOL/POVIDONE/PF OPHTH SOLUTION DROPERETTE. OU PRN (21:51)
[2020-07-25] MEDS: ATORVASTATIN CALCIUM 10 MG TABLET. PO SCH (21:52)
[2020-07-25] MEDS: clonazePAM 0.5 MG TABLET PO SCH (21:52)
[2020-07-25] MEDS: TEMAZEPAM 15 MG CAPSULE PO PRN (22:11)
--- NOTE | 2020-07-26 05:22 | PN ---
DATE: 07/24/2020 SUBJECTIVE: A 74-year-old female came in with left lower quadrant pain, some colitis or diverticulitis in that area. Her white count is elevated close to 17,000. Her hemoglobin has come up slightly. The patient says she is feeling somewhat better, but still tenderness in that left lower quadrant area. The patient otherwise seems to be making fairly good progress, still very weak. She does have that left-sided facial droop, but her CT scan and ____ have been unremarkable. The fact that she had possibly some blood in her stool became anemic ____ held back down the aspirin temporarily as we get that clarified. OBJECTIVE: VITAL SIGNS: Blood pressure 120/50, respiratory rate 16, pulse 60, afebrile. GENERAL: The patient is alert and oriented, still some facial droop, but not quite as bad as it was yesterday. LUNGS: Diminished, but basically clear. CARDIOVASCULAR: ABDOMEN: Soft, but tender to that left lower quadrant, but markedly improved from yesterday. IMPRESSION AND PLAN: The patient will continue to be monitored carefully. Continue on IV antibiotic therapy and hopefully ready for discharge here soon, diverticulitis, colitis, left facial droop, type 2 diabetes, dysuria. Continue as noted ____. JAYMIE GE MD DR: MAURIZIO/luis angel JOB#: [id number] / [id number]
[2020-07-26] MEDS: rOPINIRole 1 MG TABLET. PO SCH (06:22)
[2020-07-26 06:28] VITALS: BP 102/59
[2020-07-26 07:18] LABS: HEMOGLOBIN A1C 8.7 % (4.8-5.6)
[2020-07-26] MEDS: FLUTICASONE 50MCG/NASAL SPRAY 16GM BOTTLE. NS SCH (08:48)
[2020-07-26] MEDS: METOPROLOL TART IMMED RELEASE 25 MG TABLET. PO SCH (08:49)
[2020-07-26] MEDS: ACETAMINOPHEN 325 MG TABLET PO PRN (08:49)
[2020-07-26] MEDS: PANTOPRAZOLE 40 MG TABLET. PO SCH (08:49)
[2020-07-26] MEDS: CETIRIZINE HCL 10 MG TABLET PO SCH (08:49)
[2020-07-26] MEDS: LACTOBACILLUS RHAMNOSUS GG 1 CAPSULE. PO SCH (08:49)
[2020-07-26] MEDS: MONTELUKAST 10 MG TABLET. PO SCH (08:49)
[2020-07-26] MEDS: ONDANSETRON ODT 4 MG TAB.RAPDIS PO PRN (08:49)
[2020-07-26] MEDS: buPROPion SR 150 MG TABLET.SA PO SCH (08:49)
[2020-07-26] MEDS: POLYVINYL ALCOHOL/POVIDONE/PF OPHTH SOLUTION DROPERETTE. OU PRN (08:49)
[2020-07-26] MEDS: hydroCHLOROthiazide 12.5 MG CAPSULE PO SCH (08:50)
[2020-07-26] MEDS: DICLOFENAC SODIUM 1% TOPICAL GEL 100GM TUBE. TP SCH (08:50)
[2020-07-26] MEDS: amLODIPine BESYLATE 5 MG TABLET PO SCH (08:50)
[2020-07-26] MEDS: INSULIN LISPRO 300 UNITS/3 ML VIAL. SQ SCH ×2 (09:14→12:14)
[2020-07-26] MEDS: INSULIN GLARGINE SYRINGE. SQ SCH (09:20)
[2020-07-26 11:42] VITALS: BP 123/67
[2020-07-26] MEDS ORDERED: METR-34 PO (12:46)
== END 2020-07-26 13:59 | disposition home health service (06) | DRG 871 ==
LOC: ER 15:07 → 1 SOUTH 17:43 → OBSVTOIN 07-24 11:08
PROVIDERS: ADMIT Family Medicine; ATTEND Family Medicine
DX: A41.9 Sepsis, unspecified organism (principal); N17.0 Acute kidney failure with tubular necrosis; K57.92 Diverticulitis of intestine, part unspecified, without perforation or abscess without bleeding; E11.65 Type 2 diabetes mellitus with hyperglycemia; K52.9 Noninfective gastroenteritis and colitis, unspecified; D64.9 Anemia, unspecified; E11.22 Type 2 diabetes mellitus with diabetic chronic kidney disease; E78.00 Pure hypercholesterolemia, unspecified; E86.0 Dehydration; I25.10 Atherosclerotic heart disease of native coronary artery without angina pectoris; M19.90 Unspecified osteoarthritis, unspecified site; N18.9 Chronic kidney disease, unspecified; Z90.710 Acquired absence of both cervix and uterus; Z90.81 Acquired absence of spleen; Z95.5 Presence of coronary angioplasty implant and graft; E66.01 Morbid (severe) obesity due to excess calories; F32.9 Major depressive disorder, single episode, unspecified; K21.9 Gastro-esophageal reflux disease without esophagitis; Z88.8 Allergy status to other drugs, medicaments and biological substances
CPT/HCPCS: 36415; 70450; 74176; 80048; 80053; 80069; 81001; 82274; 82947; 83036; 83540; 83550; 83605; 83690; 83735; 83880; 84484; 85007; 85025; 87086; 93005; 93880; 96365; 96366; G0378; G0379; J0696; J1815; J1956; J3490; Q0162; 97530; 99285-25; J7030

== ENCOUNTER 2020-08-19 22:12 | Emergency (ER) | payer MEDICARE, OTHER ==
[~2020-08-19] VITALS: Ht 144.8 cm; Wt 63.1 kg
[~2020-08-19 22:12] MED LIST changes: +ACET325T9 PO; +BUPR150T21 PO; +CARB15DR3 EACHEYE; +CLON0.5T4 PO; +METO1TAB11 PO; +METR-34 PO
[2020-08-19] MEDS ORDERED: CONTRAST GIVEN. MC PRN (22:30)
--- NOTE | 2020-08-19 22:37 | PHYS DOC ---
Past History Past Medical History: Anemia, CAD, Depression, Diverticulitis, Diabetes, GERD, GI Bleed, High Cholesterol, Heart Disease, [place], Renal Disease, Other Additional Past Medical Histor: tardive dysk, renal insuff; morbid obesity; hyperuricemia; small bowel obst Past Surgical History: Cholecystectomy, Hysterectomy, Other Additional Past Surgical Histo: spleenectomy, CARDIAC STENTS Smoking: Non-smoker Alcohol Use: None Drug Use: None Adult General Chief Complaint Chief Complaint: CONSTIPATION HPI HPI Patient is a 75-year-old female with a past medical history significant for CAD, insulin-dependent diabetes, anxiety, depression and hypertension who presents to the emergency department with a chief complaint of abdominal pain. States she has had abdominal pain, generalized, 6 out of 10, dull and achy in nature over the last 2 to 3 days with a couple episodes of nonbloody nonbilious emesis and soft stool. States she is also had some abdominal distention as well which is new for her that is tender to the touch. States she has not had a regular bowel movement in 3 days. And denies any recent traumas, travel, other illnesses, fevers, chest pain, shortness of breath, dysuria, hematuria or blood in the stool. Review of Systems Review of Systems Review of systems otherwise unremarkable except noted in HPI Current Medications Current Medications Current Medications Medications (Trade) Dose Ordered Sig/Kristin Start Time Stop Time Status Last Admin Dose Admin Fentanyl Citrate (Fentanyl 2ml Vial) 50 mcg 1X ONCE 08/19/20 23:00 08/19/20 23:01 Info (Do NOT chart on this entry -- for MONITORING) 1 each PRN DAILY PRN 08/19/20 22:30 08/21/20 22:29 Iohexol (Omnipaque 300 Mg/ml) 75 ml 1X ONCE 08/19/20 23:00 08/19/20 23:01 Lactated Ringer's 1,000 ml @ 1,000 mls/hr 1X ONCE 08/19/20 23:00 08/19/20 23:59 Allergies Allergies Allergies Coded Allergies Type Severity Reaction Last Updated Verified grapefruit Allergy Intermediate 07/23/20 Yes hydromorphone Allergy Intermediate 07/23/20 Yes metoclopramide Allergy Intermediate 07/23/20 Yes morphine Allergy Intermediate 07/23/20 Yes phenytoin Allergy Intermediate 07/23/20 Yes trazodone Allergy Intermediate 07/23/20 Yes zolpidem Allergy Intermediate 07/23/20 Yes Physical Exam Physical Exam Constitutional: Well developed, well nourished, no acute distress, non-toxic appearance. [] HENT: Normocephalic, atraumatic, bilateral external ears normal, oropharynx moist, no oral exudates, nose normal. [] Eyes: conjunctiva normal, no discharge. [] Neck: Normal range of motion, no tenderness, supple, no stridor. [] Cardiovascular: Sinus tachycardia Lungs & Thorax: Bilateral breath sounds clear to auscultation [] Abdomen: Large, tense, distended belly with large soft mass just to the left of the umbilicus suspicious for hernia, and generalized discomfort on palpation. Skin: Warm, dry, no erythema, no rash. [] Back: No tenderness, Extremities: No tenderness, no cyanosis, no clubbing, ROM intact, no edema. [] Neurologic: Alert and oriented X 3, normal motor function, normal sensory function, no focal deficits noted. [] Psychologic: Affect normal, judgement normal, mood normal. [] EKG EKG [] Radiology/Procedures Radiology/Procedures [] INDICATION: Reason: ab pain, N/V, OMNI 300, 60ml / Spl. Instructions: / History: . COMPARISON: July 23, 2020 TECHNIQUE: Axial CT images obtained through the abdomen and pelvis with contrast. One or more of the following individualized dose reduction techniques were utilized for this examination: 1. Automated exposure control; 2. Adjustment of the mA and/or kV according to patient size; 3. Use of iterative reconstruction technique. FINDINGS: Multifocal opacities at the lung bases. Small pleural effusions. Coronary artery calcific atherosclerosis. Atherosclerotic disease throughout the vasculature. Prominence of the bile ducts postcholecystectomy. Liver prominent in size. No peripancreatic fluid collection. Spleen absent. No hydronephrosis. Urinary bladder is partially distended. Small free fluid. Repeat demonstration of anterior abdominal wall hernia with loops of bowel within. Interval development of dilated loops of bowel with distal decompression. The suspected transition point is at the hernia sac. Degenerative changes throughout the spine with multilevel central canal and neural foraminal stenosis. Probable vertebral body hemangioma at L2. Patchy osseous demineralization. IMPRESSION: * Dilated loops of bowel proximally with distal decompression concerning for small bowel obstruction. * Patchy opacities at the lung bases which could be infectious in nature with aspiration or atelectasis also in the differential. Small adjacent pleural effusions. * Calcific atherosclerosis. Electronically signed by: Geovanny Her MD (08/20/2020 12:22 AM) DESKT Heart Score C/O Chest Pain: No Risk Factors: Risk Factors: DM, Current or recent (<one month) smoker, HTN, HLP, family history of CAD, obesity. Risk Scores: Risk Factors: DM, Current or recent (<one month) smoker, HTN, HLP, family history of CAD, obesity. Course & Med Decision Making Course & Med Decision Making Patient is a 75-year-old female who presents to the emergency department with a chief complaint of abdominal pain associated with nausea, vomiting and soft stools for 2 days Vital signs notable for tachycardia and hypertension. Physical exam noted above. Patient placed on the monitor with IV access established and IV fluid resuscitation begun. Given fentanyl for pain. Given Zofran for nausea. Laboratory analysis notable for neutrophilic leukocytosis, mild hyperkalemia to 5.6, and nitrite positive urinary tract infection. CT of the belly notable for dilated loops of bowel proximally with distal decompression concerning for small bowel obstruction as well as patchy opacities in the lung bases which could possibly infectious versus atelectasis. Patient continued on IV fluid resuscitation, made n.p.o. given broad-spectrum antibiotics that would cover both belly, lung and urine. Discussed all findings with family and recommended transfer to [place] for surgical evaluation for small bowel obstruction. Family grateful, verbalized understanding and agreed with plan of transfer and admission. [] Dragon Disclaimer Dragon Disclaimer This electronic medical record was generated, in whole or in part, using a voice recognition dictation system. Departure Departure: Impression: Primary Impression: Small bowel obstruction Additional Impressions: Urinary tract infection Hyperkalemia Pneumonia Disposition: 02 SHORT TERM HOSPITAL Condition: STABLE Referrals: JAYMIE GE MD (PCP) Problem Qualifiers ESTEBAN FORTUNE MD August 19, 2020 22:37
[2020-08-19] MEDS ORDERED: IV RINGERS SOLUTION,LACTATED 1,000 ML IV ONE (23:00)
[2020-08-19] MEDS ORDERED: IOHEXOL 300 MG/ML 75 ML VIAL. IV ONE (23:00)
[2020-08-19 23:12] LABS: BILIRUBIN,URINE NEG (NEG); CLARITY,URINE HAZY; COLOR,URINE YELLOW; GLUCOSE,URINE NEG (NEG); NITRITE,URINE POS (NEG); RBC,URINE 0 /HPF (0-2); UROBILINOGEN,URINE 0.2 mg/dL (0.2 mg/dL)
[2020-08-19 23:13] LABS: BACTERIA,URINE MOD /HPF (0-FEW); SQUAMOUS EPITHELIAL CELL,UR OCC /LPF
[2020-08-19] MEDS ORDERED: ONDANSETRON PF 4 MG/2 ML VIAL. IVP ONE ×2 (23:15)
[2020-08-19 23:26] LABS: BASO # 0.3 x10^3/uL (0.0-0.2); BASO % 2 % (0-3); EOS # 0.2 x10^3/uL (0.0-0.7); EOS % 1 % (0-3); HEMATOCRIT 27.7 % (36.0-47.0); HEMOGLOBIN 8.6 g/dL (12.0-15.5); LYMPH # 2.6 x10^3/uL (1.0-4.8); LYMPH % 12 % (24-48); MEAN CORPUSCULAR HEMOGLOBIN 26 pg (25-35); MEAN CORPUSCULAR HGB CONC 31 g/dL (31-37); MEAN CORPUSCULAR VOLUME 85 fL (79-100); MONO % 5 % (0-9); NEUT # 17.3 x10^3uL (1.8-7.7); NEUT % 81 % (31-73); PLATELET COUNT 627 x10^3/uL (140-400); RED BLOOD COUNT 3.25 x10^6/uL (3.50-5.40); RED CELL DISTRIBUTION WIDTH 16.7 % (11.5-14.5); WHITE BLOOD COUNT 21.5 x10^3/uL (4.0-11.0)
[2020-08-19 23:37] LABS: CREATININE 1.3 mg/dL (0.6-1.0); GFR 39.9
[2020-08-19 23:43] LABS: ALBUMIN 3.2 g/dL (3.4-5.0); ALBUMIN/GLOBULIN RATIO 0.5 (1.0-1.7); TOTAL BILIRUBIN 0.2 mg/dL (0.2-1.0); TOTAL PROTEIN 9.7 g/dL (6.4-8.2)
[2020-08-19 23:46] LABS: POTASSIUM 5.6 mmol/L (3.5-5.1)
[2020-08-19 23:52] LABS: % LYMPHS 16 % (24-48); % MONOS 3 % (0-10); % SEGS 81 % (35-66); PLT ESTIMATE INCREASED (ADEQUATE)
[2020-08-19] MEDS ORDERED: PIPERACILLIN/TAZOBACTAM 4.5 GM VIAL IV ONE (23:58)
[2020-08-19] MEDS ORDERED: IV NORMAL SALINE 50ML 50 ML ONE (23:58)
[2020-08-20] MEDS ORDERED: PIPERACILLIN/TAZOBACTAM 4.5 GM in IV NORMAL SALINE 50ML 50 ML IV ONE
--- NOTE | 2020-08-20 00:12 | EKG ---
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
--- NOTE | 2020-08-20 00:24 | RAD ---
INDICATION: Reason: ab pain, N/V, OMNI 300, 60ml / Spl. Instructions: / History: . COMPARISON: July 23, 2020 TECHNIQUE: Axial CT images obtained through the abdomen and pelvis with contrast. One or more of the following individualized dose reduction techniques were utilized for this examinat ion: 1. Automated exposure control; 2. Adjustment of the mA and/or kV according to patient size; 3 . Use of iterative reconstruction technique. FINDINGS: Multifocal opacities at the lung bases. Small pleural effusions. Coronary artery calcific atheroscler osis. Atherosclerotic disease throughout the vasculature. Prominence of the bile ducts postcholecyste ctomy. Liver prominent in size. No peripancreatic fluid collection. Spleen absent. No hydronephrosis. Urinary bladder is partially distended. Small free fluid. Repeat demonstration of anterior abdominal wall hernia with loops of bowel within. Interval development of dilated loops of bowel with distal d ecompression. The suspected transition point is at the hernia sac. Degenerative changes throughout th e spine with multilevel central canal and neural foraminal stenosis. Probable vertebral body hemangio ma at L2. Patchy osseous demineralization. IMPRESSION: * Dilated loops of bowel proximally with distal decompression concerning for small bowel obstruction . * Patchy opacities at the lung bases which could be infectious in nature with aspiration or atelecta sis also in the differential. Small adjacent pleural effusions. * Calcific atherosclerosis. Electronically signed by: Geovanny Her MD (08/20/2020 12:22 AM) [id number]
--- NOTE | 2020-08-20 00:26 | RAD ---
INDICATION: Reason: tachycardia / Spl. Instructions: / History: COMPARISON: June 03, 2020 FINDINGS: Single view of chest obtained. Probable posttraumatic changes of the right proximal humerus. Cardiac silhouette is enlarged. There a re some patchy opacities within the left greater than right lung IMPRESSION: * Patchy opacities at the left greater than right lung which could be secondary to bilateral pneumon ia with a component of asymmetric edema also within differential. Electronically signed by: Geovanny Her MD (08/20/2020 12:23 AM) [id number]
[2020-08-20] MEDS ORDERED: CALCIUM CHLORIDE 1,000 MG/10 ML DISP.SYRIN IV ONE (00:59)
[2020-08-20] MEDS ORDERED: PROCHLORPERAZINE 10 MG/2 ML VIAL. ONE (00:59)
[2020-08-20] MEDS ORDERED: IV RINGERS SOLUTION,LACTATED 1,000 ML IV ONE (01:30)
[2020-08-20] MEDS ORDERED: CALCIUM GLUCONATE 1,000 MG/10 ML VIAL IV ONE (01:30)
[2020-08-20] MEDS ORDERED: PROCHLORPERAZINE 10 MG/2 ML VIAL. IV ONE (01:30)
--- NOTE | 2020-08-20 04:32 | RAD ---
INDICATION: Reason: ng placement / Spl. Instructions: / History: COMPARISON: August 19, 2020 FINDINGS: Single view of chest obtained. Enteric tube is seen coursing below the diaphragm. Cardiac silhouette is prominent in size with calci fic atherosclerosis. Patchy opacities are seen bilaterally IMPRESSION: * Enteric tube coursing below diaphragm. * Patchy opacities in the bilateral lungs again seen Electronically signed by: Geovanny Her MD (08/20/2020 4:30 AM) [id number]
[2020-08-20 04:38] VITALS: BP 151/83
== END 2020-08-20 04:55 | disposition short-term general hospital (02) ==
LOC: ER 22:12
DX: K56.609 Unspecified intestinal obstruction, unspecified as to partial versus complete obstruction (principal); N39.0 Urinary tract infection, site not specified; E87.5 Hyperkalemia; J18.9 Pneumonia, unspecified organism; I25.10 Atherosclerotic heart disease of native coronary artery without angina pectoris; E11.9 Type 2 diabetes mellitus without complications; K21.9 Gastro-esophageal reflux disease without esophagitis; E78.00 Pure hypercholesterolemia, unspecified; I25.2 Old myocardial infarction; E66.01 Morbid (severe) obesity due to excess calories; Z86.2 Personal history of diseases of the blood and blood-forming organs and certain disorders involving the immune mechanism; Z68.30 Body mass index [BMI] 30.0-30.9, adult; Z90.49 Acquired absence of other specified parts of digestive tract; Z90.710 Acquired absence of both cervix and uterus; Z88.8 Allergy status to other drugs, medicaments and biological substances; Z88.5 Allergy status to narcotic agent; Z91.018 Allergy to other foods
CPT/HCPCS: 36415; 71045; 74177; 80053; 81001; 83605; 83690; 84484; 85007; 85025; 87086; 93005; 96361; 96365; 96375; 96376; 99285; J0610; J0780; J2405; J2543; J3010; J7120; Q9967

== ENCOUNTER 2020-08-26 12:56 | Inpatient (IN) | payer MEDICARE, OTHER ==
[~2020-08-26] VITALS: Ht 144.8 cm; Wt 70.5 kg
[~2020-08-26 12:56] MED LIST changes: +MIRT-8 PO; -MIRT30TA3 PO
--- NOTE | 2020-08-26 13:29 | PHYS DOC ---
Past History Past Medical History: Anemia, CAD, Depression, Diverticulitis, Diabetes, GERD, GI Bleed, High Cholesterol, Heart Disease, [place], Renal Disease, Other Additional Past Medical Histor: tardive dysk, renal insuff; morbid obesity; hyperuricemia; small bowel obst (TIFFANIE BALLARD APRN) Past Surgical History: Cholecystectomy, Hysterectomy, Other Additional Past Surgical Histo: spleenectomy, CARDIAC STENTS (TIFFANIE BALLARD APRN) Smoking: Non-smoker Alcohol Use: None Drug Use: None (TIFFANIE BALLARD APRN) Adult General Chief Complaint Chief Complaint: SHORTNESS OF BREATH HPI HPI Patient is a 75-year-old female presents emergency department with chief complaint of acute onset of shortness of breath that started last night approximately 10 PM. Patient states she took 2 albuterol nebulizer breathing treatments at home without relief. Patient also complains of arthritis pain to her shoulders and knees, stating she took a 650 mg Tylenol p.o. at noon without relief stating her pain is a 8 on a 1-10 pain scale. Patient states she is currently on Augmentin, was admitted to [facility] for small bowel obstruction, they incidentally found a urinary tract infection and pneumonia, discharged her home this past Monday with prescription for Augmentin. Patient is taking twice daily. Patient denies chest pain, recent fever or chills, chest congestion or nasal congestion. Patient denies throat pain. Denies swelling to her extremities. Denies urinary burning, frequency, or seeing blood in her urine. Patient states she had a normal bowel movement yesterday, denies seeing blood in her stool. Patient denies headaches. Patient denies any other physical complaints or physical concerns. (TIFFANIE BALLARD APRN) Review of Systems Review of Systems 14 body systems of review of systems have been reviewed. See HPI for pertinent positives and negative responses, otherwise all other systems are negative, nonpertinent or noncontributory. (TIFFANIE BALLARD APRN) Allergies Allergies Allergies Coded Allergies Type Severity Reaction Last Updated Verified grapefruit Allergy Intermediate 07/23/20 Yes hydromorphone Allergy Intermediate 07/23/20 Yes metoclopramide Allergy Intermediate 07/23/20 Yes morphine Allergy Intermediate 07/23/20 Yes phenytoin Allergy Intermediate 07/23/20 Yes trazodone Allergy Intermediate 07/23/20 Yes zolpidem Allergy Intermediate 07/23/20 Yes (TIFFANIE BALLARD APRN) Physical Exam Physical Exam Constitutional: Well developed, well nourished, patient in mild respiratory distress, tachypnea, toxic in appearance. HENT: Normocephalic, atraumatic, bilateral external ears normal, oropharynx mo ist, no oral exudates, nose normal. Oropharynx dry, tongue is dry, no erythema or infectious process appreciated of the oropharynx. Eyes: PERRLA, EOMI, conjunctiva normal, no discharge. Neck: Normal range of motion, no tenderness, supple, no stridor. No nuchal rigidity, no C-spine pain. Cardiovascular:Heart rate regular rhythm, no murmur, heart sounds S1-S2 to auscultation. Lungs & Thorax: Bilateral breath sounds clear to auscultation all lung perez, no adventitious lung sounds appreciated. Patient tachypneic during physical examination. Bedside O2 sat 86%, was placed on 2 L per nasal cannula, O2 sat raised to 96%. Abdomen: Bowel sounds normal, soft, no tenderness, no masses, no pulsatile masses. Abdomen round, obese. Skin: Warm, dry, no erythema, no rash. Back: No tenderness, no CVA tenderness. Extremities: No tenderness, no cyanosis, no clubbing, ROM intact, no edema. Tenderness to palpation of both shoulder joints and knee joints, no swelling, deformities, or areas of ecchymosis appreciated. There is no crepitus appreciated, distal cap refill is less than 2 seconds. Neurologic: Alert and oriented X 3, normal motor function, normal sensory function, no focal deficits noted. Psychologic: Affect normal, judgement normal, mood normal. (TIFFANIE BALLARD APRN) Current Patient Data Vital Signs Vital Signs Date Time Temp Pulse Resp B/P (MAP) Pulse Ox O2 Delivery O2 Flow Rate FiO2 08/26/20 13:02 98.3 98 20 128/83 (98) 87 Room Air (TIFFANIE BALLARD APRN) EKG EKG EKG performed at 1304 by house respiratory therapy staff shows a normal sinus rhythm with leftward axis, heart rate 97 bpm, NJ interval 0.168, QT 0.444, no ectopy appreciated, no acute STEMI, no ACS, no acute ischemia appreciated, EKG interpreted by ED attending physician Dr. Beckman. (TIFFANIE BALLARD APRN) Radiology/Procedures Radiology/Procedures PATIENT: PAMELA CAIN ACCOUNT: [id number] : 1945 LOCATION: ER AGE: 75 SEX: F EXAM STATUS: REG ER ORD. PHYSICIAN: TIFFANIE BALLARD APRN REASON: short of breath PROCEDURE: CHEST PA & LATERAL EXAM: Chest, 2 views. HISTORY: Shortness of breath. COMPARISON: 08/20/2020 FINDINGS: 2 views of the chest are obtained. There is diffuse interstitial infiltrate. There are small pleural effusions. There is cardiomegaly. There is no pneumothorax. IMPRESSION: Diffuse interstitial infiltrate with small pleural effusions and cardiomegaly. Electronically signed by: Kaleigh Pfeiffer MD (08/26/2020 2:06 PM) [id number] DICTATED AND SIGNED BY: KALEIGH PFEIFFER MD DATE: 08/26/201404 CC: TIFFANIE BALLARD APRN; JAYMIE GE MD ~MTH0 0 PATIENT: PAMELA CAIN ACCOUNT: [id number] : 1945 LOCATION: ER AGE: 75 SEX: F EXAM STATUS: REG ER ORD. PHYSICIAN: TIFFANIE BALLARD APRN REASON: short of breath, hypoxia PROCEDURE: CT ANGIOGRAPHY CHEST EXAM: CT angiography of the chest with intravenous contrast. HISTORY: Shortness of breath. TECHNIQUE: Computed tomographic images of the chest were obtained following the administration of intravenous contrast according to angiography protocol. Multiplanar reformatting was performed and three dimensional maximum intensity projection images were obtained. *One or more of the following individualized dose reduction techniques were utilized for this examination: 1. Automated exposure control. 2. Adjustment of the mA and/or kV according to patient size. 3. Use of iterative reconstruction technique. COMPARISON: None. FINDINGS: There is no evidence of pulmonary embolism. The aorta is normal in caliber. There is a standard aortic arch branching pattern. There is mild cardiomegaly. There is calcified atherosclerotic plaque involving the coronary arteries. There is calcification of the aortic valve. There are prominent mediastinal and hilar lymph nodes. For reference purposes, there is a precarinal lymph node measuring 1.9 cm in long axis. There are small bilateral pleural effusions. There is no pneumothorax. There is multifocal groundglass infiltrate and septal line thickening in a predominantly left upper and bilateral lower lobe distribution. There is superimposed posterior dependent and basilar atelectasis. No suspicious or nodule is seen. There is no acute finding involving the upper abdomen. The spleen is absent. There is mild renal atrophy. There is suspected mild hepatomegaly. There are degenerative changes throughout the spine. There are few osseous hemangiomas. No suspicious osseous lesion is seen. IMPRESSION: 1. No evidence of pulmonary embolism. 2. Multifocal groundglass infiltrate with septal line thickening and small pleural effusions. 3. Cardiomegaly, coronary artery atherosclerosis and calcification of the aortic valve. 4. Prominent mediastinal and hilar lymph nodes, likely reactive given the aforementioned findings. Electronically signed by: Kaleigh Pfeiffer MD (08/26/2020 2:19 PM) [id number] DICTATED AND SIGNED BY: KALEIGH PFEIFFER MD DATE: 08/26/201410 CC: TIFFANIE BALLARD APRN; JAYMIE GE MD; ROMULO BECKMAN DO ~MTH0 0 (TIFFANIE BALLARD APRN) Heart Score C/O Chest Pain: No Risk Factors: Risk Factors: DM, Current or recent (<one month) smoker, HTN, HLP, family history of CAD, obesity. Risk Scores: Risk Factors: DM, Current or recent (<one month) smoker, HTN, HLP, family history of CAD, obesity. (TIFFANIE BALLARD APRN) Course & Med Decision Making Course & Med Decision Making Pertinent Labs and Imaging studies reviewed. (See chart for details) 75-year-old female, vital signs reviewed, presents emergency department with complaints of acute onset of shortness of breath at 10 PM last night. Patient has a history of COPD, was recently admitted to [facility] on August, for small bowel obstruction, was discharged this past Monday with Augmentin and was told she has a urinary tract infection and pneumonia. Physical examination concerning for acute respiratory process, the patient's lung sounds are clear to auscultate, she was hypoxic upon arrival, the patient's oral mucosa dry, will order septic work-up, CT angio chest to rule out pulmonary emboli. Patient's white blood cell count elevated 19.5, thrombocytosis with platelet count of 626, patient had hypokalemia 3.3, hypocalcemia 8.2, hypomagnesia 1.6, oral supplements were ordered, patient's lactic acid 2.2, D-dimer 1.10, CT angio chest showed multifocal groundglass infiltrates mostly upper with bilateral lower lobe, started patient on 1 g Rocephin IV followed by 500 mg azithromycin IV. Discussed with patient recommended admission to hospital under Dr. Ge for community-acquired pneumonia failed outpatient therapy, hypoxia, leukocytosis, thrombocytosis, chronic anemia, patient is amenable to this plan. Patient states she does not feel any better with continuing shortness of breath complaints, O2 sat remains above 90% with 2 L per nasal cannula, will order DuoNeb treatment. Called and discussed patient case with patient's primary care physician Dr. Ge who was agreeable to assume patient care and admit patient to the telemetry unit at [facility] with the information he was given by me, Dr. Ge has assumed patient care at this time Patient is in emergency department awaiting transportation to [facility] telemetry by EMS, continues to complain of joint pain and shortness of breath, will order 650 mg Tylenol, a/a nebulizer treatment. (TIFFANIE BALLARD APRN) Course & Med Decision Making I oversaw on the above date of service of this patient and discussed the care with the SAP FUNCTIONAL ANALYST. I advised starting broad spectrum antibiotics, replacing electrolytes, and need for admission. I agree with the findings, plan of care, and disposition as documented. Electronically signed, Romulo Beckman DO Critical Care Time This patient required critical care. Due to the fact that the patient required a significant amount of one on one physician - patient contact time, ordering and review of studies, arranging urgent treatment with development of a management plan, evaluation of patients response to treatment with frequent reassessments, and discussions with other providers this patient required 40 minutes of critical care time. Critical care time was indicated due to the inherent instability and/or potential for instability in this patient. The critical care time that is allocated to this patient is above and beyond any time spent on any other billable procedures performed on this patient. (ROMULO BECKMAN DO) Dragon Disclaimer Dragon Disclaimer This electronic medical record was generated, in whole or in part, using a voice recognition dictation system. (TIFFANIE BALLARD APRN) Departure Departure: Impression: Primary Impression: Failure of outpatient treatment Additional Impressions: Pneumonia Leukocytosis Thrombocytosis Hypokalemia Hypocalcemia Hypomagnesemia Chronic anemia Disposition: ADMITTED INPATIENT (Admit to the telemetry unit to Dr. Ge) Admitting Physician: Jaymie Ge (TIFFANIE BALLARD APRN) Condition: GUARDED Referrals: JAYMIE GE MD (PCP) Problem Qualifiers Additional Impressions: Pneumonia Pneumonia type: due to unspecified organism Laterality: bilateral Lung location: unspecified part of lung Qualified Codes: J18.9 - Pneumonia, unspecified organism Leukocytosis Leukocytosis type: unspecified Qualified Codes: D72.829 - Elevated white blood cell count, unspecified TIFFANIE BALLARD APRN August 26, 2020 13:29 ROMULO BECKMAN DO August 26, 2020 16:13
[2020-08-26] MEDS ORDERED: IOHEXOL 350 MG/ML 100 ML VIAL. IV ONE (13:30)
[2020-08-26] MEDS ORDERED: IV NORMAL SALINE 1,000ML 1,000 ML IV ONE (13:30)
[2020-08-26] MEDS ORDERED: CONTRAST GIVEN. MC PRN (13:45)
[2020-08-26 14:00] LABS: BASO # 0.2 x10^3/uL (0.0-0.2); BASO % 1 % (0-3); EOS # 0.6 x10^3/uL (0.0-0.7); EOS % 3 % (0-3); HEMATOCRIT 24.6 % (36.0-47.0); HEMOGLOBIN 7.7 g/dL (12.0-15.5); LYMPH # 3.9 x10^3/uL (1.0-4.8); LYMPH % 20 % (24-48); MEAN CORPUSCULAR HEMOGLOBIN 27 pg (25-35); MEAN CORPUSCULAR HGB CONC 31 g/dL (31-37); MEAN CORPUSCULAR VOLUME 86 fL (79-100); MONO # 1.2 x10^3/uL (0.0-1.1); MONO % 6 % (0-9); NEUT # 13.6 x10^3uL (1.8-7.7); NEUT % 70 % (31-73); PLATELET COUNT 626 x10^3/uL (140-400); RED BLOOD COUNT 2.86 x10^6/uL (3.50-5.40); RED CELL DISTRIBUTION WIDTH 17.1 % (11.5-14.5); WHITE BLOOD COUNT 19.5 x10^3/uL (4.0-11.0)
--- NOTE | 2020-08-26 14:08 | RAD ---
EXAM: Chest, 2 views. HISTORY: Shortness of breath. COMPARISON: 08/20/2020 FINDINGS: 2 views of the chest are obtained. There is diffuse interstitial infiltrate. There are smal l pleural effusions. There is cardiomegaly. There is no pneumothorax. IMPRESSION: Diffuse interstitial infiltrate with small pleural effusions and cardiomegaly. Electronically signed by: Kaleigh Shanks MD (08/26/2020 2:06 PM) [id number]
[2020-08-26 14:09] LABS: CALCIUM 8.2 mg/dL (8.5-10.1); CREATININE 1.1 mg/dL (0.6-1.0); GFR 48.4; POTASSIUM 3.3 mmol/L (3.5-5.1)
[2020-08-26 14:10] LABS: MAGNESIUM 1.6 mg/dL (1.8-2.4); PHOSPHORUS 2.7 mg/dL (2.6-4.7)
[2020-08-26] MEDS ORDERED: POTASSIUM CHLORIDE 20 MEQ TABLET.ER. PO ONE (14:15)
--- NOTE | 2020-08-26 14:21 | RAD ---
EXAM: CT angiography of the chest with intravenous contrast. HISTORY: Shortness of breath. TECHNIQUE: Computed tomographic images of the chest were obtained following the administration of int ravenous contrast according to angiography protocol. Multiplanar reformatting was performed and three dimensional maximum intensity projection images were obtained. *One or more of the following individualized dose reduction techniques were utilized for this examina tion: 1. Automated exposure control. 2. Adjustment of the mA and/or kV according to patient size. 3. Use of iterative reconstruction technique. COMPARISON: None. FINDINGS: There is no evidence of pulmonary embolism. The aorta is normal in caliber. There is a laurence dard aortic arch branching pattern. There is mild cardiomegaly. There is calcified atherosclerotic pl aque involving the coronary arteries. There is calcification of the aortic valve. There are prominent mediastinal and hilar lymph nodes. For reference purposes, there is a precarinal lymph node measurin g 1.9 cm in long axis. There are small bilateral pleural effusions. There is no pneumothorax. There is multifocal groundglas s infiltrate and septal line thickening in a predominantly left upper and bilateral lower lobe distri bution. There is superimposed posterior dependent and basilar atelectasis. No suspicious or nodule is seen. There is no acute finding involving the upper abdomen. The spleen is absent. There is mild renal atrophy. There is suspected mild hepatomegaly. There are degenerative ch anges throughout the spine. There are few osseous hemangiomas. No suspicious osseous lesion is seen. IMPRESSION: 1. No evidence of pulmonary embolism. 2. Multifocal groundglass infiltrate with septal line thickening and small pleural effusions. 3. Cardiomegaly, coronary artery atherosclerosis and calcification of the aortic valve. 4. Prominent mediastinal and hilar lymph nodes, likely reactive given the aforementioned findings. Electronically signed by: Kaleigh Shanks MD (08/26/2020 2:19 PM) [id number]
[2020-08-26 14:22] LABS: ALBUMIN 2.7 g/dL (3.4-5.0); ALBUMIN/GLOBULIN RATIO 0.5 (1.0-1.7); DIRECT BILIRUBIN 0.1 mg/dL (0.0-0.2); TOTAL BILIRUBIN 0.2 mg/dL (0.2-1.0); TOTAL PROTEIN 8.2 g/dL (6.4-8.2)
[2020-08-26] MEDS ORDERED: AZITHROMYCIN 500 MG in IV NORMAL SALINE 250ML 250 ML IV ONE (14:30)
[2020-08-26] MEDS ORDERED: MAGNESIUM CHLORIDE ER 64 MG TABLET.ER PO ONE (14:31)
--- NOTE | 2020-08-26 14:41 | EKG ---
[address] [address] Test Date: 2020-08-26 Test Time: 13:04:38 Pat Name: PAMELA CAIN Department: Room: Gender: F Hypnotherapist: NINA : 1945 Requested By: ROMULO BECKMAN Order Number: [id number] Reading MD: Measurements Intervals Clarence Rate: 97 P: 3 DC: 168 QRS: -20 QRSD: 68 T: 106 QT: 346 QTc: 444 Interpretive Statements SINUS RHYTHM LEFTWARD AXIS CONSIDER LEFT VENTRICULAR HYPERTROPHY QRS(T) CONTOUR ABNORMALITY CONSISTENT WITH INFERIOR INFARCT PROBABLY OLD ST & T ABNORMALITY, CONSIDER HIGH LATERAL ISCHEMIA OR LEFT VENTRICULAR STRAIN ABNORMAL ECG RI6.02 No previous ECG available for comparison
[2020-08-26] MEDS ORDERED: AZITHROMYCIN 500 MG VIAL. IV ONE (14:48)
[2020-08-26] MEDS ORDERED: IV NORMAL SALINE 50ML 50 ML ONE (14:48)
[2020-08-26] MEDS ORDERED: IV NORMAL SALINE 250ML 250 ML ONE (14:48)
[2020-08-26] MEDS ORDERED: cefTRIAXone SODIUM 1 GM VIAL ONE (14:49)
[2020-08-26 14:51] LABS: % EOS 3 % (0-5); % LYMPHS 28 % (24-48); % MONOS 3 % (0-10); % SEGS 66 % (35-66)
[2020-08-26 14:52] LABS: PLT ESTIMATE INCREASED (ADEQUATE)
[2020-08-26 15:37] LABS: BACTERIA,URINE 0 /HPF (0-FEW); BILIRUBIN,URINE NEG (NEG); CLARITY,URINE CLEAR; COLOR,URINE YELLOW; GLUCOSE,URINE NEG (NEG); NITRITE,URINE NEG (NEG); RBC,URINE OCC /HPF (0-2); UROBILINOGEN,URINE 0.2 mg/dL (0.2 mg/dL); WBC,URINE 0 /HPF (0-4)
[2020-08-26] MEDS ORDERED: ALBUTEROL SULFATE 2.5 MG/3 ML NEBU. INH PRN (15:45)
[2020-08-26] MEDS ORDERED: ONDANSETRON ODT 4 MG TAB.RAPDIS PO PRN (15:45)
[2020-08-26] MEDS ORDERED: IPRATRPIUM/ALBUTEROL 0.5/2.5MG 3 ML NEBU. ONE (16:04)
[2020-08-26] MEDS: ACETAMINOPHEN 325 MG TABLET PO PRN (16:16)
[2020-08-26] MEDS ORDERED: ACETAMINOPHEN 325 MG TABLET PO ONE (16:30)
[2020-08-26] MEDS: INSULIN LISPRO 300 UNITS/3 ML VIAL. SQ SCH (16:30)
[2020-08-26] MEDS ORDERED: IPRATRPIUM/ALBUTEROL 0.5/2.5MG 3 ML NEBU. NEB ONE (16:30)
--- NOTE | 2020-08-26 16:30 | NUR ---
Patient was admitted to the unit from the ER. Patient is alert and oriented. Patient is complaining of SOA. Patient was oriented to unit. Dr. Moreland was notified of patients arrival to unit. Patient is currently in bed with side rails up X's 2 with call light in reach. [facility]
[2020-08-26 16:52] VITALS: BP 111/72
[2020-08-26] MEDS: CALCIUM CARBONATE 500 MG TABLET PO SCH (18:00)
[2020-08-26 18:45] VITALS: BP 114/68
[2020-08-26] MEDS ORDERED: METO-239 PO (19:25)
[2020-08-26] MEDS ORDERED: ONDA4TAB12 PO (19:25)
[2020-08-26] MEDS ORDERED: ARIP2TAB35 PO (19:25)
[2020-08-26] MEDS ORDERED: AMIT75TA PO (19:25)
[2020-08-26] MEDS ORDERED: DICL100G18 TP (19:25)
[2020-08-26] MEDS ORDERED: OMEG1CAP50 PO (19:25)
--- NOTE | 2020-08-26 19:27 | NUR ---
Admission: Pt arrived prior to fitness technician. Pt verbalizes poc. Call light at bedside.
[2020-08-26] MEDS ORDERED: clonazePAM 0.5 MG TABLET PO SCH (21:00)
[2020-08-26] MEDS: clonazePAM 0.5 MG TABLET PO PRN (21:35)
[2020-08-26] MEDS: rOPINIRole 1 MG TABLET. PO SCH (21:35)
[2020-08-26] MEDS: INSULIN GLARGINE SYRINGE. SQ SCH (21:54)
[2020-08-27 00:09] VITALS: BP 115/58
[2020-08-27] MEDS: rOPINIRole 1 MG TABLET. PO SCH ×3 (06:27→21:03)
[2020-08-27] MEDS: PANTOPRAZOLE 40 MG TABLET. PO SCH ×2 (06:28→08:31)
[2020-08-27 06:40] VITALS: BP 115/58
[2020-08-27] MEDS ORDERED: buPROPion XL 150 MG TAB.ER.24H PO SCH (08:00)
[2020-08-27] MEDS: amLODIPine BESYLATE 5 MG TABLET PO SCH (08:31)
[2020-08-27] MEDS: CALCIUM CARBONATE 500 MG TABLET PO SCH ×3 (08:31→17:36)
[2020-08-27] MEDS: MONTELUKAST 10 MG TABLET. PO SCH (08:31)
[2020-08-27] MEDS: METOPROLOL SUCC 24HR ER 25 MG TAB.ER.24H. PO SCH (08:32)
[2020-08-27] MEDS: FLUTICASONE 50MCG/NASAL SPRAY 16GM BOTTLE. NS SCH (08:32)
[2020-08-27] MEDS: buPROPion XL 300 MG TAB.ER.24H. PO SCH (08:33)
[2020-08-27] MEDS: CETIRIZINE HCL 10 MG TABLET PO SCH (08:33)
[2020-08-27] MEDS: INSULIN GLARGINE SYRINGE. SQ SCH ×2 (08:38→21:00)
[2020-08-27] MEDS: INSULIN LISPRO 300 UNITS/3 ML VIAL. SQ SCH ×3 (08:38→16:30)
[2020-08-27] MEDS ORDERED: PIP/TAZO PER PHARMACY MC PRN (09:00)
[2020-08-27] MEDS ORDERED: [UNRECOGNIZED DRUG - OTHER] PO SCH (09:00)
[2020-08-27] MEDS ORDERED: METOPROLOL PO SCH (09:00)
[2020-08-27] MEDS ORDERED: HYDROCHLOROTHIAZIDE PO SCH (09:00)
[2020-08-27] MEDS ORDERED: IPRATRPIUM/ALBUTEROL 0.5/2.5MG 3 ML NEBU. NEB SCH (09:15)
[2020-08-27] MEDS: FUROSEMIDE 20 MG/2 ML VIAL IVP SCH (10:04)
[2020-08-27] MEDS: ENOXAPARIN 40 MG/0.4 ML SYRINGE. SQ SCH (10:04)
[2020-08-27] MEDS ORDERED: ALBUTEROL SULFATE 8GM INHALER. INH PRN (11:00)
[2020-08-27] MEDS: clonazePAM 0.5 MG TABLET PO PRN ×2 (11:12→21:03)
[2020-08-27 11:17] VITALS: BP 114/59
[2020-08-27] MEDS: IPRATROPIUM/ALBUTEROL 20/100mcg/INH INHALER. INH SCH ×3 (12:00→21:03)
[2020-08-27] MEDS: PIPERACILLIN/TAZOBACTAM 2.25 GM in IV NORMAL SALINE 50ML 50 ML IV SCH ×3 (13:19→23:46)
[2020-08-27] MEDS ORDERED: IPRATRPIUM/ALBUTEROL 0.5/2.5MG 3 ML NEBU. NEB PRN (16:15)
[2020-08-27 16:26] VITALS: BP 92/53
--- NOTE | 2020-08-27 16:42 | NUR ---
NURSING NOTE THIS NURSE TOOK OVER PT CARE, REPORT FROM GA CHILDS. AMADEO AYALA.
--- NOTE | 2020-08-27 19:32 | HP ---
ADMIT DATE: 08/26/2020 HISTORY OF PRESENT ILLNESS: A 75-year-old female who came in with increased shortness of breath. The patient took two treatments at home, but failed those and came in markedly tachypneic. X-ray showed the patient had infiltrative process consistent with pneumonia; and as a result of this, the patient was admitted to the hospital for further evaluation and treatment of her pneumonia and acute respiratory failure. PAST MEDICAL HISTORY: Positive for a small bowel obstruction, tonsillectomy, adenoidectomy, cardiac disease with three stents placed, congestive heart failure, last one in April 2020, sleep apnea, home oxygen, diverticulosis, hiatal hernia, umbilical hernia repair, obesity, hysterectomy, oophorectomy, salpingectomy, renal disease, urinary tract infections, osteoarthritis, chronic back problems, hypoglycemia, psychiatric problems of affective disorder, depression, previous suicide attempt, medical symptoms, pneumococcal positive, splenectomy and Clostridium difficile positive at one time. FAMILY HISTORY: Positive for diabetes, stomach cancer, breast cancer, hypertension, depression, heart disease. ALLERGIES OR SENSITIVITIES: GRAPEFRUIT, HYDROMORPHONE, METOCLOPRAMIDE, MORPHINE, , TRAZODONE, AND AMBIEN. SOCIAL HISTORY: No history of smoking, alcohol or drug use. She is a full code. REVIEW OF SYSTEMS: Outside of her shortness of breath, she denies any headaches, visual changes, blurred vision, double vision, any weakness anywhere in her body, nausea, vomiting, abdominal pain. Denies any other problems except for that breathing situation. PHYSICAL EXAMINATION: GENERAL: This is a pleasant white female, in moderate amount of distress. VITAL SIGNS: Blood pressure 128/83, respiratory rate 20, pulse 100, afebrile, oxygen saturation 87% on room air. HEENT: The patient's head was atraumatic, normocephalic. Eyes: PERRLA without jaundice. Mouth and throat: Poor dentition. NECK: Supple without JVD, carotid bruit or thyromegaly. LUNGS: Diminished throughout, poor movement of air. Some rales noted in the bases, some expiratory wheezes. CARDIOVASCULAR: Regular sinus rhythm, S1, S2, without murmur, rub, thrill, or extra heart sounds. ABDOMEN: Soft, nontender, no rebounding or guarding. Positive bowel sounds, no hepatosplenomegaly noted. EXTREMITIES: No clubbing, cyanosis. Trace edema noted. NEUROLOGIC: Baseline for her. LABORATORY DATA: Her white count was 19,500, hemoglobin 7.7 and 25. The patient's chemistries showed elevated blood sugar, but did have an elevated lactic acid of 2.2. Sodium and potassium 141 and 3.3. Magnesium low at 1.6. Albumin extremely low at 2.7. UA was unremarkable. Serology: COVID-19 negative. The patient otherwise as noted, the chest x-ray was significant for diffuse interstitial infiltrate and pleural effusions and cardiomegaly. ASSESSMENT AND PLAN: Acute respiratory failure, sepsis, did have a heart rate greater than 100 along with her elevated white count; pneumonia of unspecified etiology, community acquired; type 2 diabetes; low magnesium; severe protein malnutrition; anemia, unknown etiology; positive D-dimer ( ). The patient on Lovenox for that. The patient otherwise will be admitted, placed on IV antibiotic therapy. Monitor her blood sugars and make further evaluation on her as needed. TORRI/AYAH DR: Jeff TID: [id number]
[2020-08-27 19:33] VITALS: BP 95/60
[2020-08-27] MEDS: DICLOFENAC SODIUM 1% TOPICAL GEL 100GM TUBE. TP PRN (21:03)
[2020-08-27] MEDS: LACTOBACILLUS RHAMNOSUS GG 1 CAPSULE. PO SCH (21:03)
[2020-08-28] MEDS: PIPERACILLIN/TAZOBACTAM 2.25 GM in IV NORMAL SALINE 50ML 50 ML IV SCH ×3 (05:25→17:05)
[2020-08-28] MEDS: rOPINIRole 1 MG TABLET. PO SCH ×3 (06:00→20:58)
[2020-08-28 06:11] LABS: BASO # 0.1 x10^3/uL (0.0-0.2); BASO % 1 % (0-3); EOS # 0.8 x10^3/uL (0.0-0.7); EOS % 5 % (0-3); HEMATOCRIT 22.6 % (36.0-47.0); LYMPH # 4.2 x10^3/uL (1.0-4.8); LYMPH % 27 % (24-48); MEAN CORPUSCULAR HEMOGLOBIN 27 pg (25-35); MEAN CORPUSCULAR HGB CONC 31 g/dL (31-37); MEAN CORPUSCULAR VOLUME 86 fL (79-100); MONO # 1.4 x10^3/uL (0.0-1.1); MONO % 9 % (0-9); NEUT # 9.3 x10^3uL (1.8-7.7); NEUT % 59 % (31-73); PLATELET COUNT 604 x10^3/uL (140-400); RED BLOOD COUNT 2.64 x10^6/uL (3.50-5.40); RED CELL DISTRIBUTION WIDTH 17.2 % (11.5-14.5); WHITE BLOOD COUNT 15.8 x10^3/uL (4.0-11.0)
[2020-08-28 06:12] LABS: CALCIUM 8.3 mg/dL (8.5-10.1); CREATININE 1.1 mg/dL (0.6-1.0); GFR 48.4; POTASSIUM 3.8 mmol/L (3.5-5.1)
--- NOTE | 2020-08-28 06:25 | NUR ---
Critical received from Alfonzo franklin. Relayed information to PT's nurse.
[2020-08-28 06:34] VITALS: BP 114/54
[2020-08-28 06:42] LABS: % BANDS 1 % (0-9); % EOS 4 % (0-5); % LYMPHS 28 % (24-48); % MONOS 2 % (0-10); % SEGS 65 % (35-66); PLT ESTIMATE INCREASED (ADEQUATE)
[2020-08-28] MEDS: INSULIN LISPRO 300 UNITS/3 ML VIAL. SQ SCH ×3 (07:30→17:06)
[2020-08-28] MEDS: MAGNESIUM CHLORIDE ER 64 MG TABLET.ER PO SCH (08:39)
[2020-08-28] MEDS: MONTELUKAST 10 MG TABLET. PO SCH (08:39)
[2020-08-28] MEDS: CALCIUM CARBONATE 500 MG TABLET PO SCH ×3 (08:39→17:04)
[2020-08-28] MEDS: CETIRIZINE HCL 10 MG TABLET PO SCH (08:39)
[2020-08-28] MEDS: METOPROLOL SUCC 24HR ER 25 MG TAB.ER.24H. PO SCH (08:40)
[2020-08-28] MEDS: PANTOPRAZOLE 40 MG TABLET. PO SCH (08:40)
[2020-08-28] MEDS: LACTOBACILLUS RHAMNOSUS GG 1 CAPSULE. PO SCH ×2 (08:40→20:58)
[2020-08-28] MEDS: buPROPion XL 300 MG TAB.ER.24H. PO SCH (08:41)
[2020-08-28] MEDS: INSULIN GLARGINE SYRINGE. SQ SCH ×2 (08:42→20:58)
[2020-08-28] MEDS: FUROSEMIDE 20 MG/2 ML VIAL IVP SCH (08:53)
[2020-08-28] MEDS: IPRATROPIUM/ALBUTEROL 20/100mcg/INH INHALER. INH SCH ×4 (08:56→20:00)
[2020-08-28] MEDS: FLUTICASONE 50MCG/NASAL SPRAY 16GM BOTTLE. NS SCH (08:56)
[2020-08-28] MEDS: amLODIPine BESYLATE 5 MG TABLET PO SCH (09:00)
[2020-08-28] MEDS: ENOXAPARIN 40 MG/0.4 ML SYRINGE. SQ SCH (09:00)
[2020-08-28] MEDS: POLYVINYL ALCOHOL 1.4% OPHTH SOLUTION 15ML BOTTLE. OU PRN (11:24)
[2020-08-28 11:34] VITALS: BP 122/70
[2020-08-28 15:29] VITALS: BP 128/70
[2020-08-28 15:46] LABS: HEMOGLOBIN 7.5 g/dL (12.0-15.5)
[2020-08-28 19:28] VITALS: BP 130/70
[2020-08-28] MEDS: clonazePAM 0.5 MG TABLET PO PRN (21:07)
[2020-08-28 23:22] VITALS: BP 121/68
[2020-08-28] MEDS: ACETAMINOPHEN 325 MG TABLET PO PRN (23:24)
[2020-08-29] VITALS (9 sets, daily range): BP systolic 103–132; BP diastolic 46–73
[2020-08-29] MEDS: PIPERACILLIN/TAZOBACTAM 2.25 GM in IV NORMAL SALINE 50ML 50 ML IV SCH ×4 (01:18→17:56)
--- NOTE | 2020-08-29 02:27 | NUR ---
PT WAS COOPERATIVE WITH ASSESSMENT AND MED PASS. PT IS A&0X4 ON 2L NC. PT IS UP TO BEDSIDE COMMODE WITH STANDBY ASSIST. PT HAS COMPLAINED 1X THIS SHIFT OF BACK PAIN PT RECEIVED TYLENOL PER ORDER. PT HAS SLEPT/RESTED WELL THUS FAR THIS SHIFT. WILL CONTINUE TO MONITOR.
[2020-08-29 05:37] LABS: BASO # 0.2 x10^3/uL (0.0-0.2); BASO % 1 % (0-3); EOS % 8 % (0-3); HEMATOCRIT 22.4 % (36.0-47.0); LYMPH # 3.7 x10^3/uL (1.0-4.8); LYMPH % 27 % (24-48); MEAN CORPUSCULAR HEMOGLOBIN 27 pg (25-35); MEAN CORPUSCULAR HGB CONC 31 g/dL (31-37); MEAN CORPUSCULAR VOLUME 85 fL (79-100); MONO # 1.4 x10^3/uL (0.0-1.1); MONO % 11 % (0-9); NEUT # 7.4 x10^3uL (1.8-7.7); NEUT % 54 % (31-73); PLATELET COUNT 600 x10^3/uL (140-400); RED BLOOD COUNT 2.63 x10^6/uL (3.50-5.40); RED CELL DISTRIBUTION WIDTH 17.4 % (11.5-14.5); WHITE BLOOD COUNT 13.7 x10^3/uL (4.0-11.0)
[2020-08-29] MEDS: rOPINIRole 1 MG TABLET. PO SCH ×3 (05:38→21:41)
[2020-08-29 05:46] LABS: CALCIUM 8.2 mg/dL (8.5-10.1); CREATININE 1.1 mg/dL (0.6-1.0); GFR 48.4; POTASSIUM 3.7 mmol/L (3.5-5.1)
--- NOTE | 2020-08-29 06:15 | NUR ---
DR NOTIFIED OF CRITICAL HGB 7.0. NO ORDERS RECEIVED AT THIS TIME.
[2020-08-29] MEDS: IPRATROPIUM/ALBUTEROL 20/100mcg/INH INHALER. INH SCH ×4 (08:00→20:00)
[2020-08-29] MEDS: CETIRIZINE HCL 10 MG TABLET PO SCH (08:23)
[2020-08-29] MEDS: MAGNESIUM CHLORIDE ER 64 MG TABLET.ER PO SCH (08:23)
[2020-08-29] MEDS: CALCIUM CARBONATE 500 MG TABLET PO SCH ×3 (08:23→17:56)
[2020-08-29] MEDS: LACTOBACILLUS RHAMNOSUS GG 1 CAPSULE. PO SCH ×2 (08:23→21:43)
[2020-08-29] MEDS: amLODIPine BESYLATE 5 MG TABLET PO SCH (08:24)
[2020-08-29] MEDS: MONTELUKAST 10 MG TABLET. PO SCH (08:24)
[2020-08-29] MEDS: METOPROLOL SUCC 24HR ER 25 MG TAB.ER.24H. PO SCH (08:24)
[2020-08-29] MEDS: FLUTICASONE 50MCG/NASAL SPRAY 16GM BOTTLE. NS SCH (08:24)
[2020-08-29] MEDS: FUROSEMIDE 20 MG/2 ML VIAL IVP SCH (08:25)
[2020-08-29] MEDS: buPROPion XL 300 MG TAB.ER.24H. PO SCH (08:25)
--- NOTE | 2020-08-29 08:28 | PN ---
SUBJECTIVE: A 75-year-old female brought in with multiple medical problems. The patient has had problems with hypoxia, tachypneic and increased shortness of breath, infiltrative process consistent with pneumonia. The patient was also extremely anemic, down to 7. Her white count was as high as 19,000, with IV antibiotics, has come down to 15,000. Hemoglobin has come back up to 7.5. The patient otherwise seems to be resting fairly comfortably, feels fairly cool. OBJECTIVE: VITAL SIGNS: Blood pressure 128/70, respiratory rate 20, pulse 70, afebrile, 94 on nasal cannula 2 liters. GENERAL: The patient otherwise is alert and oriented. LUNGS: Diminished, primarily in the bases. CARDIOVASCULAR: Regular sinus rhythm. ABDOMEN: Soft, diffuse tenderness. EXTREMITIES: No clubbing, cyanosis or edema. NEUROLOGIC: Stable, intact ____. The patient's blood sugar down to 165. We will continue to monitor her accordingly and make further evaluation. IMPRESSION: Sepsis, pneumonia, anemia of unspecified etiology at the present time. PLAN: Continue with workup and continue IV antibiotic therapy. MAURIZIO/DOUGLAS/MICHELLE DR: Jeff TID: [id number]
[2020-08-29] MEDS: INSULIN LISPRO 300 UNITS/3 ML VIAL. SQ SCH ×3 (08:29→16:30)
[2020-08-29] MEDS: clonazePAM 0.5 MG TABLET PO PRN ×2 (08:37→15:34)
[2020-08-29] MEDS: ACETAMINOPHEN 325 MG TABLET PO PRN ×2 (08:37→21:41)
[2020-08-29] MEDS: INSULIN GLARGINE SYRINGE. SQ SCH ×2 (08:39→21:00)
[2020-08-29 13:39] LABS: FECAL OB PT NEGATIVE (NEG)
--- NOTE | 2020-08-29 15:37 | NUR ---
Blood transfusion started at 1449. Tubing primed with normal saline and then bprimed with blood. Transfusion started at 60ml/hr, patient monitored closely for 15 minutes. No reaction noted, transfusion increased to 125ml/hr. Will continue to monitor.
--- NOTE | 2020-08-29 19:00 | NUR ---
Blood transfusion completed per day shift nurse at 1750. No reaction noted. Vital signs assessed and WNL. Will continue to monitor.
[2020-08-29 19:04] LABS: HEMATOCRIT 28.1 % (36.0-47.0); HEMOGLOBIN 8.7 g/dL (12.0-15.5); RED BLOOD COUNT 3.35 x10^6/uL (3.50-5.40); RED CELL DISTRIBUTION WIDTH 16.9 % (11.5-14.5); WHITE BLOOD COUNT 11.3 x10^3/uL (4.0-11.0)
--- NOTE | 2020-08-29 23:56 | PN ---
SUBJECTIVE: A 75-year-old female, brought in with pneumonia and exacerbation of her COPD with infection and hypoxia. The patient otherwise is breathing better. She has been very cold. Her hemoglobin has dropped again from 7.4 down to 7, so we did give her a unit of packed RBCs to see if that does not help her with her oxygenation as well as maintaining her hemoglobin at a more reasonable level. OBJECTIVE: VITAL SIGNS: In any case, the patient's blood pressure is 122/71, respiratory rate 76, afebrile. The patient on 2 liters at 96%, up from 93%. GENERAL: The patient is alert and oriented with cold, but otherwise very weak. LUNGS: Diminished, primarily in the bases, some decreased breath sounds. CARDIOVASCULAR: Regular sinus rhythm. ABDOMEN: Protuberant. EXTREMITIES: No clubbing, cyanosis. Trace edema noted. NEUROLOGIC: Baseline. CURRENT MEDICATIONS: The patient will continue to be monitored on IV antibiotic therapy. IMPRESSION AND PLAN: Sepsis, pneumonia of unspecified etiology, as well as hypoxia and acute respiratory distress. The patient is continued to be monitored on IV antibiotic therapy, blood transfusion for her anemia, and make further evaluation once that has been performed. VENUS DR: Jeff TID: [id number]
[2020-08-30] MEDS: PIPERACILLIN/TAZOBACTAM 2.25 GM in IV NORMAL SALINE 50ML 50 ML IV SCH ×5 (00:30→23:42)
[2020-08-30] MEDS: clonazePAM 0.5 MG TABLET PO PRN ×3 (00:46→23:42)
[2020-08-30 05:42] VITALS: BP 124/68
[2020-08-30] MEDS: rOPINIRole 1 MG TABLET. PO SCH ×3 (06:13→21:26)
[2020-08-30 07:18] LABS: BASO # 0.2 x10^3/uL (0.0-0.2); BASO % 2 % (0-3); EOS # 0.9 x10^3/uL (0.0-0.7); EOS % 8 % (0-3); HEMATOCRIT 27.5 % (36.0-47.0); HEMOGLOBIN 8.7 g/dL (12.0-15.5); LYMPH # 2.9 x10^3/uL (1.0-4.8); LYMPH % 27 % (24-48); MEAN CORPUSCULAR HEMOGLOBIN 27 pg (25-35); MEAN CORPUSCULAR HGB CONC 32 g/dL (31-37); MEAN CORPUSCULAR VOLUME 84 fL (79-100); MONO # 1.1 x10^3/uL (0.0-1.1); MONO % 10 % (0-9); NEUT # 5.8 x10^3uL (1.8-7.7); NEUT % 53 % (31-73); PLATELET COUNT 648 x10^3/uL (140-400); RED BLOOD COUNT 3.27 x10^6/uL (3.50-5.40); RED CELL DISTRIBUTION WIDTH 16.9 % (11.5-14.5)
[2020-08-30 07:34] LABS: CALCIUM 8.3 mg/dL (8.5-10.1); CREATININE 0.9 mg/dL (0.6-1.0)
[2020-08-30 07:44] LABS: POTASSIUM 3.9 mmol/L (3.5-5.1)
[2020-08-30] MEDS: IPRATROPIUM/ALBUTEROL 20/100mcg/INH INHALER. INH SCH ×4 (08:00→21:25)
[2020-08-30] MEDS: LACTOBACILLUS RHAMNOSUS GG 1 CAPSULE. PO SCH ×2 (08:53→21:27)
[2020-08-30] MEDS: MAGNESIUM CHLORIDE ER 64 MG TABLET.ER PO SCH (08:53)
[2020-08-30] MEDS: MONTELUKAST 10 MG TABLET. PO SCH (08:53)
[2020-08-30] MEDS: PANTOPRAZOLE 40 MG TABLET. PO SCH (08:53)
[2020-08-30] MEDS: amLODIPine BESYLATE 5 MG TABLET PO SCH (08:54)
[2020-08-30] MEDS: METOPROLOL SUCC 24HR ER 25 MG TAB.ER.24H. PO SCH (08:54)
[2020-08-30] MEDS: CALCIUM CARBONATE 500 MG TABLET PO SCH ×3 (08:54→17:02)
[2020-08-30] MEDS: FLUTICASONE 50MCG/NASAL SPRAY 16GM BOTTLE. NS SCH (08:54)
[2020-08-30] MEDS: FUROSEMIDE 20 MG/2 ML VIAL IVP SCH (08:54)
[2020-08-30] MEDS: CETIRIZINE HCL 10 MG TABLET PO SCH (08:54)
[2020-08-30] MEDS: INSULIN LISPRO 300 UNITS/3 ML VIAL. SQ SCH ×3 (08:55→17:02)
[2020-08-30] MEDS: buPROPion XL 300 MG TAB.ER.24H. PO SCH (08:56)
[2020-08-30] MEDS: INSULIN GLARGINE SYRINGE. SQ SCH ×2 (10:19→21:26)
[2020-08-30 11:45] VITALS: BP 127/63
[2020-08-30 15:49] VITALS: BP 137/67
[2020-08-30 19:05] VITALS: BP 122/67
--- NOTE | 2020-08-30 21:20 | PN ---
SUBJECTIVE: This is a 75-year-old female admitted with pneumonia and acute respiratory failure and anemia. The patient seems to be doing better. She received 1 unit of packed RBCs and the patient's Hemoccult was negative, but the patient was staying around the 7 range and having difficulty breathing, so we gave her a unit of packed RBCs. Her oxygen saturation has come up as a result of this. She is at 96% on 2 liters. OBJECTIVE: GENERAL: The patient otherwise is alert and oriented. present. LUNGS: Diminished but clear. CARDIOVASCULAR: Stable. ABDOMEN: Soft, nontender. EXTREMITIES: Without clubbing, cyanosis, nor edema. NEUROLOGIC: Intact. LABORATORY DATA: Patient's hemoglobin 8.7, hematocrit 27. White count 11, down from 19,000. PLAN: We will continue to monitor patient accordingly on IV antibiotic therapy. IMPRESSION: Sepsis, pneumonia of unspecified etiology, acute respiratory on top of chronic respiratory failure, anemia. Continue with IV antibiotic therapy and monitoring her H and H and start her on iron supplementation. PAULO DR: Jeff TID: [id number]
[2020-08-30] MEDS: ACETAMINOPHEN 325 MG TABLET PO PRN (21:27)
[2020-08-30] MEDS: DICLOFENAC SODIUM 1% TOPICAL GEL 100GM TUBE. TP PRN (21:30)
[2020-08-30 22:42] VITALS: BP 109/62
[2020-08-31 02:33] LABS: HEMOGLOBIN A1C 8.3 % (4.8-5.6)
[2020-08-31 05:11] VITALS: BP 101/52
[2020-08-31] MEDS: rOPINIRole 1 MG TABLET. PO SCH ×3 (05:39→21:15)
[2020-08-31] MEDS: PIPERACILLIN/TAZOBACTAM 2.25 GM in IV NORMAL SALINE 50ML 50 ML IV SCH ×4 (05:39→23:28)
--- NOTE | 2020-08-31 06:00 | NUR ---
Pt awake in bed at change of shift watching TV with call light in hand. Pt A&Ox4, very pleasant and cooperative with cares. Pt took HS medication whole and ate HS snack independently. Pt given shower x1 assist, tolerated well and was very appreciative. Pt wore 2L NC during sleep, stated that she slept well. Pt hopeful for DC soon.
[2020-08-31 07:15] LABS: HEMATOCRIT 26.6 % (36.0-47.0); HEMOGLOBIN 8.5 g/dL (12.0-15.5)
[2020-08-31] MEDS: INSULIN LISPRO 300 UNITS/3 ML VIAL. SQ SCH ×3 (07:30→17:14)
[2020-08-31] MEDS: PANTOPRAZOLE 40 MG TABLET. PO SCH (07:56)
[2020-08-31] MEDS: MONTELUKAST 10 MG TABLET. PO SCH (07:56)
[2020-08-31] MEDS: LACTOBACILLUS RHAMNOSUS GG 1 CAPSULE. PO SCH ×2 (07:56→21:15)
[2020-08-31] MEDS: FERROUS SULFATE 325 MG TABLET. PO SCH (07:56)
[2020-08-31] MEDS: CETIRIZINE HCL 10 MG TABLET PO SCH (07:56)
[2020-08-31] MEDS: CALCIUM CARBONATE 500 MG TABLET PO SCH ×3 (07:57→17:15)
[2020-08-31] MEDS: IPRATROPIUM/ALBUTEROL 20/100mcg/INH INHALER. INH SCH ×4 (07:57→21:15)
[2020-08-31] MEDS: clonazePAM 0.5 MG TABLET PO PRN ×2 (07:57→18:20)
[2020-08-31] MEDS: METOPROLOL SUCC 24HR ER 25 MG TAB.ER.24H. PO SCH (07:57)
[2020-08-31] MEDS: buPROPion XL 300 MG TAB.ER.24H. PO SCH (07:57)
[2020-08-31] MEDS: MAGNESIUM CHLORIDE ER 64 MG TABLET.ER PO SCH (07:57)
[2020-08-31] MEDS: POLYVINYL ALCOHOL 1.4% OPHTH SOLUTION 15ML BOTTLE. OU PRN (07:58)
[2020-08-31] MEDS: FLUTICASONE 50MCG/NASAL SPRAY 16GM BOTTLE. NS SCH (07:59)
[2020-08-31] MEDS: FUROSEMIDE 20 MG/2 ML VIAL IVP SCH (07:59)
[2020-08-31] MEDS: amLODIPine BESYLATE 5 MG TABLET PO SCH (08:04)
[2020-08-31] MEDS: INSULIN GLARGINE SYRINGE. SQ SCH ×2 (09:00→21:16)
[2020-08-31 11:30] VITALS: BP 130/67
[2020-08-31 15:50] VITALS: BP 112/61
[2020-08-31 19:17] VITALS: BP 120/72
[2020-08-31] MEDS: ACETAMINOPHEN 325 MG TABLET PO PRN (21:15)
[2020-08-31 22:35] VITALS: BP 121/71
--- NOTE | 2020-09-01 00:01 | RAD ---
Exam performed: 2 views of the chest. Indication: Reason: pneumonia / Spl. Instructions: / History: Date of Service: 08/31/2020 1:45 PM. Comparison : 2 views chest from 08/26/2020 Findings: PA and lateral radiographs of the chest reveal a normal cardiomediastinal contour. Pulmonary vascular ity is unremarkable. Prominent interstitial markings are seen in both lungs similar to prior exam. Th ere is a small right pleural effusion. There is no pneumothorax. Impression: No significant interval change. Electronically signed by: Nia Ge MD (08/31/2020 11:58 PM) [place]
--- NOTE | 2020-09-01 00:26 | PN ---
DATE: 08/31/2020 SUBJECTIVE: The patient is still somewhat short of breath. She desaturates down into the mid 80s without oxygen, still continuing with therapy. Her hemoglobin has stayed stable at 8.5. She is on iron supplementation. The patient otherwise has just mainly the shortness of breath that is occurring. OBJECTIVE: VITAL SIGNS: Her blood pressure is approximately 100/52, respiratory rate 20, pulse 60, afebrile. She continues on oxygen, will do a 6-minute walk in the morning, get her oxygen at home. HEENT: The patient's head was atraumatic, normocephalic. Eyes: PERRLA. LUNGS: Diminished, poor movement of air. CARDIOVASCULAR: Regular sinus rhythm. ABDOMEN: Soft, protuberant. EXTREMITIES: No clubbing, cyanosis or edema. NEUROLOGIC: Intact. LABORATORY DATA: Hemoglobin is noted at 8.5, staying up. INCOMPLETE DICTATION MAURIZIO/ZACKARY/ZULEYKA DR: Jeff TID: [id number]
[2020-09-01] MEDS: PIPERACILLIN/TAZOBACTAM 2.25 GM in IV NORMAL SALINE 50ML 50 ML IV SCH (05:47)
[2020-09-01] MEDS: rOPINIRole 1 MG TABLET. PO SCH (05:47)
[2020-09-01] MEDS: clonazePAM 0.5 MG TABLET PO PRN (05:47)
[2020-09-01 05:55] VITALS: BP 104/63
[2020-09-01 06:30] LABS: HEMATOCRIT 27.5 % (36.0-47.0); HEMOGLOBIN 8.6 g/dL (12.0-15.5)
[2020-09-01] MEDS: PANTOPRAZOLE 40 MG TABLET. PO SCH (08:00)
[2020-09-01] MEDS: CETIRIZINE HCL 10 MG TABLET PO SCH (08:00)
[2020-09-01] MEDS: MONTELUKAST 10 MG TABLET. PO SCH (08:00)
[2020-09-01] MEDS: FERROUS SULFATE 325 MG TABLET. PO SCH (08:00)
[2020-09-01] MEDS: MAGNESIUM CHLORIDE ER 64 MG TABLET.ER PO SCH (08:00)
[2020-09-01] MEDS: LACTOBACILLUS RHAMNOSUS GG 1 CAPSULE. PO SCH (08:00)
[2020-09-01 08:01] VITALS: BP 104/63
[2020-09-01] MEDS: METOPROLOL SUCC 24HR ER 25 MG TAB.ER.24H. PO SCH (08:01)
[2020-09-01] MEDS: IPRATROPIUM/ALBUTEROL 20/100mcg/INH INHALER. INH SCH (08:02)
[2020-09-01] MEDS: CALCIUM CARBONATE 500 MG TABLET PO SCH (08:02)
[2020-09-01] MEDS: INSULIN LISPRO 300 UNITS/3 ML VIAL. SQ SCH (08:03)
[2020-09-01] MEDS: buPROPion XL 300 MG TAB.ER.24H. PO SCH (08:04)
[2020-09-01] MEDS: FUROSEMIDE 20 MG/2 ML VIAL IVP SCH (08:04)
[2020-09-01] MEDS: POLYVINYL ALCOHOL 1.4% OPHTH SOLUTION 15ML BOTTLE. OU PRN (08:05)
[2020-09-01] MEDS: DICLOFENAC SODIUM 1% TOPICAL GEL 100GM TUBE. TP PRN (08:05)
[2020-09-01] MEDS: FLUTICASONE 50MCG/NASAL SPRAY 16GM BOTTLE. NS SCH (08:05)
[2020-09-01] MEDS: amLODIPine BESYLATE 5 MG TABLET PO SCH (08:12)
[2020-09-01] MEDS: INSULIN GLARGINE SYRINGE. SQ SCH (08:41)
[2020-09-01] MEDS ORDERED: ONDANSETRON ODT 4 MG TAB.RAPDIS PO PRN (08:45)
[2020-09-01] MEDS ORDERED: FLUT16SP21 NS (08:46)
[2020-09-01] MEDS ORDERED: IPRA3AMP29 NEB (08:46)
[2020-09-01] MEDS ORDERED: DOXY100T PO (08:46)
[2020-09-01] MEDS ORDERED: FERR325T72 PO (08:46)
[2020-09-01] MEDS ORDERED: ARIPiprazole 2 MG TABLET PO SCH (09:00)
[2020-09-01] MEDS ORDERED: METOPROLOL SUCC 24HR ER 25 MG TAB.ER.24H. PO SCH (09:00)
[2020-09-01] MEDS ORDERED: DICLOFENAC SODIUM 1% TOPICAL GEL 100GM TUBE. TP SCH (09:00)
[2020-09-01] MEDS ORDERED: OMEGA-3 FATTY ACIDS/FISH OIL 1,000 MG CAPSULE. PO SCH (09:00)
--- NOTE | 2020-09-01 09:43 | DISCH ---
HOME HEALTH DISCHARGE/MEDS DISCHARGE INFORMATION: Discharge Date: Sep 01, 2020 Final Diagnosis: Problems Medical Problems: (1) Chronic anemia Status: Acute (2) Elevated d-dimer Status: Acute (3) Elevated lactic acid level Status: Acute (4) Failure of outpatient treatment Status: Acute (5) Hypocalcemia Status: Acute (6) Hypokalemia Status: Acute (7) Hypomagnesemia Status: Acute (8) Leukocytosis Status: Acute (9) Thrombocytosis Status: Acute Condition on Discharge: Stable CODE STATUS: Code Status: Full HOME HEALTH: Face to Face: I certify this patient is under my care and that I, or a nurse practitioner or physician's sales assistants and salespersons working with me, had a face to face encounter that meets the physician face to face encounter requirements with this patient on 09/01/2020. Medical Condition(s): DM, Pneumonia Correction For: Assess Cardiopulm Status, Assess & Educate Safety, Assess/Skilled Observatio, Diabetic Care, Medication Management Physical Therapy For: Evalulation/Treatment Occupational Therapy For: Evaluation/Treatment Homebound Status Met By: Poor coordination w/ amb., Unsteady balance w/ amb,, Extreme weakness w/ amb., Fatigue w/ amb. POST DISCHARGE ORDERS: Activity Instructions for Disc: Activity as tolerated Weight Bearing Status after Di: No restrictions DIET AFTER DISCHARGE: ADA CHECKS AFTER DISCHARGE: Checks after discharge: Check blood sugar, ac/hs CERTIFICATION STATEMENT: Certification Statement: Based on the above finding, I certify that this patient is confined to the home and needs intermittent senior living care, physical therapy and/or speech therapy, or continues to need occupational therapy.~ This patient is under my care, and I have initiated the establishment of the plan of care.~ This patient will be followed by myself or a community physician who will periodically review the plan of care. DISCHARGE MEDICATIONS: Home Meds Active Scripts Doxycycline Hyclate (DOXYCYCLINE HYCLATE) 100 Mg Tablet, 1 TAB PO BID for pneumonia, #14 TAB Prov:JAYMIE GE MD 09/01/20 Fluticasone Propionate (FLUTICASONE PROPIONATE NASAL SPRAY) 16 Gm [place].susp, 2 SPRAY NS DAILY for sinus allergies for 30 Days, #1 SPRAY Prov:JAYMIE GE MD 09/01/20 Ferrous Sulfate (FEOSOL) 325 Mg Tablet, 325 MG PO DAILYWBKFT for iron def for 90 Days, #90 TAB 6 Refills Prov:JAYMIE GE MD 09/01/20 Ipratropium/Albuterol Sulfate (DUONEB 0.5-3(2.5) MG/3 ML) 3 Ml Ampul.neb, 3 ML NEB QID PRN for CONGESTION for 90 Days, #360 EACH 4 Refills Prov:JAYMIE GE MD 09/01/20 Pantoprazole Sodium (PANTOPRAZOLE SODIUM) 40 Mg Tablet.dr, 40 MG PO DAILYAC for stomach for 30 Days, #30 TAB 3 Refills Prov:JAYMIE GE MD 06/01/20 Cetirizine Hcl (CETIRIZINE HCL) 10 Mg Tablet, 10 MG PO DAILY for allergies for 30 Days, #30 TAB 4 Refills Prov:JAYMIE GE MD 06/01/20 Reported Medications [place]-3 Fatty Acids/Fish Oil (FISH OIL 1,000 MG SOFTGEL) 1 Each Capsule, 1 CAP PO DAILY for HEART for 30 Days, #30 CAP 0 Refills 08/26/20 Metoprolol Succinate (METOPROLOL SUCCINATE ( XL )) 25 Mg Tab.er.24h, 0.5 TAB PO DAILY for HTN, #30 TAB 5 Refills 08/26/20 Diclofenac Sodium (VOLTAREN) 100 Gm Gel..gram., 1 GM TP QID for pain for 30 Days, #1 EACH 0 Refills apply to affected area(s) 08/26/20 Aripiprazole (ABILIFY) 2 Mg Tablet, 1.5 TAB PO DAILY for SLEEP for 30 Days, #45 TAB 0 Refills 08/26/20 Amitriptyline Hcl (AMITRIPTYLINE HCL) 75 Mg Tablet, 1 TAB PO QHS for SLEEP, #30 TAB 3 Refills 08/26/20 Acetaminophen (TYLENOL) 325 Mg Tablet, 2 TAB PO PRN Q6HRS PRN for PAIN, #30 TAB 07/23/20 Clonazepam (CLONAZEPAM) 0.5 Mg Tablet, 0.5 MG PO BID PRN for PRN, TAB 07/23/20 Bupropion Hcl (BUPROPION XL) 150 Mg Tab.er.24h, 2 TAB PO DAILYWBKFT for MDD, #30 TAB 2 Refills 07/23/20 Ropinirole Hcl (ROPINIROLE HCL) 1 Mg Tablet, 1 MG PO Q8HRS for RESTLESS LEGS LAST DOSE GIVEN: DATE: TODAY TIME: 6 AM NEXT DOSE DUE: DATE: TODAY TIME: 2 PM 05/27/20 Albuterol Sulfate (PROAIR HFA INHALER) 8.5 Gm Hfa.aer.ad, 1 PUFF INH PRN Q6HRS PRN for SHORTNESS OF BREATH, 0 Refills NOT GIVEN TODAY NEXT DOSE DUE: DATE: TIME: IF AND WHEN NEEDED 05/27/20 Ondansetron (ONDANSETRON ODT) 4 Mg Tab.rapdis, 1 TAB PO PRN Q6HRS PRN for NAUSEA/VOMITING NOT GIVEN TODAY NEXT DOSE DUE: DATE: TODAY TIME: IF AND WHEN NEEDED 05/27/20 Atorvastatin Calcium (ATORVASTATIN CALCIUM) 80 Mg Tablet, 1 TAB PO HS for HIGH CHOLESTEROL LAST DOSE GIVEN: DATE: TODAY TIME: AM NEXT DOSE DUE: DATE: TOMORROW TIME: AM 02/24/19 Amlodipine Besylate (NORVASC) 5 Mg Tablet, 1 TAB PO DAILY for HIGH BLOOD PRESSURE LAST DOSE GIVEN: DATE: TODAY TIME: AM NEXT DOSE DUE: DATE: TOMORROW TIME: AM 11/23/17 Montelukast Sodium (MONTELUKAST SODIUM TABLET ) 10 Mg Tablet, 1 TAB PO DAILY for ALLERGIES LAST DOSE GIVEN: DATE: TODAY TIME: AM NEXT DOSE DUE: DATE: TOMORROW TIME: AM 11/23/17 Insulin Aspart (NOVOLOG FLEXPEN) 100 Unit/1 Ml Insuln.pen, 6 UNIT SQ TIDAC for HIGH BLOOD SUGAR-DIABETES LAST DOSE GIVEN: DATE: TODAY TIME: WITH BREAKFAST NEXT DOSE DUE: DATE: TODAY TIME: WITH LUNCH 11/23/17 Insulin Detemir (Levemir Flextouch) 100 Unit/1 Ml Insuln.pen, 36 UNIT SQ BID for HIGH BLOOD SUGAR-DIABETES LAST DOSE GIVEN: DATE: TODAY TIME: AM NEXT DOSE DUE: DATE: TODAY TIME: PM 11/23/17 Discontinued Reported Medications Ondansetron (ONDANSETRON ODT) 4 Mg Tab.rapdis, 1 TAB PO PRN Q6-8HRS for NAUSEA, #16 TAB 08/26/20 Carboxymethylcellulos/Glycerin (REFRESH OPTIVE EYE DROPS) 15 Ml Drops, 2 DROP EACHEYE BID for EYE ITCHING, #30 ML 6 Refills 07/23/20 Fluticasone Propionate (Flonase Allergy Relief) 9.9 Ml [place].susp, 2 SPRAYS NS DAILY for SEASONAL ALLERGIES, ML 07/23/20 Metoprolol/Hydrochlorothiazide (LOPRESSOR HCT 50-25 TABLET) 1 Each Tablet, 0.5 TAB PO DAILY for HTN for 30 Days, #15 TAB 0 Refills 07/23/20 Galcanezumab-Gnlm (Emgality) 120 Mg/1 Ml Pen.injctr, 120 MG SQ 1X for MONTHLY FOR MIGRANES TAKE ON YOUR REG SCHEDULED DAY 05/28/20 Discontinued Scripts Metronidazole (METRONIDAZOLE) 500 Mg Tablet, 1 TAB PO BID for colitis for 7 Days, #14 TAB 0 Refills Prov:JAYMIE GE MD 07/26/20 JAYMIE GE MD Sep 01, 2020 09:43
--- NOTE | 2020-09-01 10:24 | NUR ---
NURSING NOTE DISCHARGE PT DISCHARGED HOME VIA WHEELCHAIR WITH OXYGEN AND [facility]. PT GIVEN WRITTEN AND VERBAL DISCHARGE INSTRUCTIONS. PT SCRIPTS SENT VIA COMPUTER TO [facility]. CASE MANAGEMENT SETTING UP HOME OXYGEN. AMADEO AYALA.
[2020-09-01] MEDS ORDERED: AMITRIPTYLINE HCL 75 MG TABLET PO SCH (21:00)
== END 2020-09-01 10:26 | disposition home health service (06) | DRG 871 ==
LOC: ER 12:56 → 1 SOUTH 14:40
PROVIDERS: ADMIT Family Medicine; ATTEND Family Medicine
PROC: 30233N1 Transfusion of Nonautologous Red Blood Cells into Peripheral Vein, Percutaneous Approach (ICD-10-PCS; principal; 2020-08-29)
DX: A41.9 Sepsis, unspecified organism (principal); E43 Unspecified severe protein-calorie malnutrition; J96.01 Acute respiratory failure with hypoxia; J18.9 Pneumonia, unspecified organism; J96.21 Acute and chronic respiratory failure with hypoxia; J44.0 Chronic obstructive pulmonary disease with (acute) lower respiratory infection; J44.1 Chronic obstructive pulmonary disease with (acute) exacerbation; D53.9 Nutritional anemia, unspecified; E11.9 Type 2 diabetes mellitus without complications; E78.00 Pure hypercholesterolemia, unspecified; E83.42 Hypomagnesemia; E83.51 Hypocalcemia; E87.6 Hypokalemia; I25.10 Atherosclerotic heart disease of native coronary artery without angina pectoris; I50.9 Heart failure, unspecified; M19.90 Unspecified osteoarthritis, unspecified site; E66.01 Morbid (severe) obesity due to excess calories; F32.9 Major depressive disorder, single episode, unspecified; G47.30 Sleep apnea, unspecified; K21.9 Gastro-esophageal reflux disease without esophagitis; Z80.0 Family history of malignant neoplasm of digestive organs; Z80.3 Family history of malignant neoplasm of breast; Z81.8 Family history of other mental and behavioral disorders; Z82.49 Family history of ischemic heart disease and other diseases of the circulatory system; Z83.3 Family history of diabetes mellitus; Z90.710 Acquired absence of both cervix and uterus; Z90.81 Acquired absence of spleen; Z91.5 Personal history of self-harm; Z95.5 Presence of coronary angioplasty implant and graft; Z88.5 Allergy status to narcotic agent; Z88.8 Allergy status to other drugs, medicaments and biological substances; Z68.33 Body mass index [BMI] 33.0-33.9, adult; Z20.822 Contact with and (suspected) exposure to COVID-19
CPT/HCPCS: 36415; 36430; 71046; 71275; 80048; 80053; 80076; 81001; 82274; 82947; 83036; 83540; 83550; 83605; 83735; 84100; 84484; 85007; 85014; 85018; 85025; 85027; 85379; 86850; 86900; 86901; 86920; 87040; 87426; 93005; 94618; 94640; 96361; 96365; 96368; J0456; J0696; J1650; J1815; J1956; J2543; J7050; P9016; Q9967; U0003; 99291-25; J7030

== ENCOUNTER → 2021-06-22 | Outpatient (CLI) | payer MEDICARE, OTHER ==
[~2021-06-22] MED LIST changes: +AMIT75TA PO; -CYCL-331 PO; +CYCL10TA19 PO; +DOXY100T PO; -DULO60CA6 PO; +DULO60CA7 PO; -EMPA10TA PO; +EMPA10TA3 PO; +FERR325T72 PO; -LEVO250T7 PO; +LEVO250T8 PO; -LIPA1CAP12 PO; +LIPA1CAP31 PO; -LISI-517 PO; +LISI5TAB15 PO; +TIZA-75 PO; -TIZA4TAB2 PO
[2021-06-22 16:02] LABS: BASO # 0.1 x10^3/uL (0.0-0.2); BASO % 1 % (0-3); EOS # 0.5 x10^3/uL (0.0-0.7); EOS % 4 % (0-3); HEMATOCRIT 35.6 % (36.0-47.0); HEMOGLOBIN 11.4 g/dL (12.0-15.5); LYMPH # 4.9 x10^3/uL (1.0-4.8); LYMPH % 33 % (24-48); MEAN CORPUSCULAR HEMOGLOBIN 30 pg (25-35); MEAN CORPUSCULAR HGB CONC 32 g/dL (31-37); MEAN CORPUSCULAR VOLUME 92 fL (79-100); MONO # 1.3 x10^3/uL (0.0-1.1); MONO % 8 % (0-9); NEUT # 8.2 x10^3uL (1.8-7.7); NEUT % 55 % (31-73); PLATELET COUNT 439 x10^3/uL (140-400); RED BLOOD COUNT 3.86 x10^6/uL (3.50-5.40); RED CELL DISTRIBUTION WIDTH 16.1 % (11.5-14.5); WHITE BLOOD COUNT 15.1 x10^3/uL (4.0-11.0)
[2021-06-22 16:10] LABS: ALBUMIN 3.3 g/dL (3.4-5.0); ALBUMIN/GLOBULIN RATIO 0.6 (1.0-1.7); CALCIUM 9.9 mg/dL (8.5-10.1); CREATININE 1.3 mg/dL (0.6-1.0); GFR 39.9; POTASSIUM 4.2 mmol/L (3.5-5.1); TOTAL BILIRUBIN 0.2 mg/dL (0.2-1.0); TOTAL PROTEIN 8.9 g/dL (6.4-8.2)
[2021-06-22 17:36] LABS: % BANDS 1 % (0-9); % EOS 6 % (0-5); % LYMPHS 28 % (24-48); % MONOS 4 % (0-10); % SEGS 61 % (35-66)
[2021-06-22 17:37] LABS: PLT ESTIMATE INCREASED (ADEQUATE)
--- NOTE | 2021-06-23 10:17 | CARD ---
MR#: [id number] Date of Study: 06/22/2021 Ordering Physician: SHADI KENNEDY, Referring Physician: SHADI KENNEDY, Tech: Jann Randle [facility] APPROVED REPORT EXAM: Two-dimensional and M-mode echocardiogram with Doppler and color Doppler. Other Information Quality : FairHR: 88bpm Rhythm : NSRTechnically limited study due to body habitus. INDICATION Cardiac Disease: CAD RISK FACTORS Hypertension Obesity Hyperlipidemia Diabetes 2D DIMENSIONS Left Atrium(2D)3.4 (1.6-4.0cm)IVSd1.1 (0.7-1.1cm) Aortic Root(2D)2.6 (2.0-3.7cm)LVDd3.8 (3.9-5.9cm) LVOT Diameter1.8 (1.8-2.4cm)PWd1.1 (0.7-1.1cm) LVDs2.3 (2.5-4.0cm)FS (%) 39.0 % SV42.4 ml Aortic Valve AoV Peak Jhonathan.183.4cm/sAoV VTI29.9cm AO Peak GR.13.5mmHgLVOT Peak Jhonathan.94.8cm/s LVOT VTI 18.11cmAO Mean GR.7mmHg LIGIA (VMAX)1.45zd8EVC (VTI)1.51cm2 Mitral Valve MV E Qyfdcmqu54.6cm/sMV E Peak Gr.6mmHg MV DECEL [id number] A Wayckxqn554.7cm/s MV E Mean Gr.3mmHgE/A Ratio0.6 Pulmonary Valve PV Peak Pahcjjgs182.2cm/sPV Peak Grad.5mmHg Tricuspid Valve TR P. Bcfzfwyd316xo/sTR Peak Gr.28mmHg Pulmonary Vein S1 Yvugpkca80.8cm/sD2 Jdojaxgg57.5cm/s LEFT VENTRICLE The left ventricle is normal size. There is normal left ventricular wall thickness. The left ventricu lar systolic function is normal and the ejection fraction is within normal range. LV ejection fractio n is 55 to 60%. There is normal LV segmental wall motion. No left ventricle thrombus noted on this st udy. There is no ventricular septal defect visualized. There is no left ventricular aneurysm. There i s no mass noted in the left ventricle. RIGHT VENTRICLE The right ventricle is normal size. There is normal right ventricular wall thickness. The right ventr icular systolic function is normal. ATRIA The left atrium size is normal. The right atrium size is normal. AORTIC VALVE The aortic valve is not well seen. Doppler and Color Flow revealed no significant aortic regurgitatio n. There is no significant aortic valvular stenosis. There is no aortic valvular vegetation. MITRAL VALVE The mitral valve is normal in structure and function. There is no evidence of mitral valve prolapse. There is no mitral valve stenosis. Doppler and Color Flow revealed trace mitral valve regurgitation. TRICUSPID VALVE The tricuspid valve is normal in structure and function. Doppler and Color Flow revealed trace tricus pid regurgitation. There is no tricuspid valve prolapse or vegetation. There is no tricuspid valve st enosis. PULMONIC VALVE The pulmonic valve is not well seen. Doppler and Color Flow revealed no pulmonic valvular regurgitati on. There is no pulmonic valvular stenosis. GREAT VESSELS The aortic root is normal in size. The ascending aorta is normal in size. The pulmonary artery is nor mal. The IVC is normal in size and collapses >50% with inspiration. PERICARDIAL EFFUSION There is no pleural effusion. There is no evidence of significant pericardial effusion. Critical Notification Critical Value: No <Conclusion> The left ventricle is normal size. The left ventricular systolic function is normal and the ejection fraction is within normal range. LV ejection fraction is 55 to 60%. There is normal LV segmental wall motion. Doppler and Color Flow revealed no significant aortic regurgitation. There is no significant aortic valvular stenosis. Doppler and Color Flow revealed trace mitral valve regurgitation. Doppler and Color Flow revealed trace tricuspid regurgitation. Signed by : Tay Ventura MD Electronically Approved : 06/23/2021 10:17:09
[2021-06-23 18:22] LABS: CHOLESTEROL/HDL RATIO 3.7
== END ==
LOC: ECHO 14:47
PROVIDERS: ATTEND Internal Medicine Cardiovascular Disease
DX: I25.10 Atherosclerotic heart disease of native coronary artery without angina pectoris (principal)
CPT/HCPCS: 36415; 80053; 80061; 85007; 85025; 93306

== ENCOUNTER 2021-08-20 20:43 | Emergency (ER) | payer MEDICARE, OTHER ==
[~2021-08-20] VITALS: Ht 144.8 cm; Wt 70.5 kg
[~2021-08-20 20:43] MED LIST changes: +BUPR100T16 PO; -BUPR100T8 PO
[2021-08-20] MEDS ORDERED: IPRATRPIUM/ALBUTEROL 0.5/2.5MG 3 ML NEBU. NEB ONE (21:15)
[2021-08-20] MEDS ORDERED: ALBUTEROL SULFATE 2.5 MG/3 ML NEBU. NEB ONE (21:15)
[2021-08-20] MEDS ORDERED: PROCHLORPERAZINE 10 MG/2 ML VIAL. IV ONE (21:15)
[2021-08-20] MEDS ORDERED: methylPREDNISolone SOD SUCC PF 125 MG/2 ML VIAL. IV ONE (21:15)
[2021-08-20] MEDS ORDERED: KETOROLAC 15 MG/ML VIAL. IVP ONE (21:15)
[2021-08-20] MEDS ORDERED: diphenhydrAMINE 50 MG/ML VIAL IVP ONE (21:15)
[2021-08-20 21:51] LABS: BGAS PH 7.33 (7.35-7.45)
[2021-08-20] MEDS ORDERED: cefTRIAXone SODIUM 2 GM in IV DEXTROSE 5% 100 ML IV ONE (22:00)
[2021-08-20] MEDS ORDERED: AZITHROMYCIN 250 MG TABLET. PO ONE (22:00)
--- NOTE | 2021-08-20 22:01 | PHYS DOC ---
Past History Past Medical History: Anemia, CAD, Depression, Diverticulitis, Diabetes, GERD, GI Bleed, High Cholesterol, Heart Disease, IA, Renal Disease, Other Additional Past Medical Histor: tardive dysk, renal insuff; morbid obesity; hyperuricemia; small bowel obst Past Surgical History: Cholecystectomy, Hysterectomy, Other Additional Past Surgical Histo: spleenectomy, CARDIAC STENTS Smoking: Non-smoker Alcohol Use: None Drug Use: None Adult General Chief Complaint Chief Complaint: SHORTNESS OF BREATH HPI HPI Patient is a 76-year-old female in poor health presenting to emergency department for which she was most concerned about was a headache and back pain and neck pain she says she has migraine headaches and she says that she feels that she is having a migraine headache and that she fell yesterday and may have jostled her head. She is having no vision changes fevers chills unilateral weakness numbness or tingling. Patient is obviously dyspneic which is what worries her more so than the headache. She is obviously dyspneic and has an oxygen saturation of 80% on room air. She reportedly has oxygen at home but has not had to use it in at least 2 years. She has a history of COPD and does not smoke any longer and she has not had to use her nebulizer in at least 6 months. She says she has had a cough but is nonproductive. She appears to be anemic and her states that she does require transfusions approximately 2-3 times a year that are unscheduled for possible lower GI bleeds. Patient denies any black or bloody stools or any hematemesis. She appears ill and dyspneic. Review of Systems Review of Systems Constitutional: Denies fever or chills [] Eyes: Denies change in visual acuity, redness, or eye pain [] HENT: Denies nasal congestion or sore throat [] Respiratory: + cough, shortness of breath [] Cardiovascular: No additional information not addressed in HPI [] GI: Denies abdominal pain. + nausea, vomiting. No bloody stools or diarrhea [] : Denies dysuria or hematuria [] Musculoskeletal: + back pain. No joint pain [] Integument: Denies rash or skin lesions [] Neurologic: + headache. No focal weakness or sensory changes [] All other systems were reviewed and found to be within normal limits, except as documented in this note. Current Medications Current Medications Current Medications Medications (Trade) Dose Ordered Sig/Kristin Start Time Stop Time Status Last Admin Dose Admin Albuterol Sulfate (Ventolin) 5 mg 1X ONCE 08/20/21 21:15 08/20/21 21:17 DC Albuterol/ Ipratropium (Duoneb) 3 ml 1X ONCE 08/20/21 21:15 08/20/21 21:17 DC Azithromycin (Zithromax) 500 mg 1X ONCE 08/20/21 22:00 08/20/21 22:01 Ceftriaxone Sodium 2 gm/ Dextrose 100 ml @ 200 mls/hr 1X ONCE 08/20/21 22:00 08/20/21 22:29 Diphenhydramine HCl (Benadryl) 50 mg 1X ONCE 08/20/21 21:15 08/20/21 21:17 DC Ketorolac Tromethamine (Toradol 15mg Vial) 15 mg 1X ONCE 08/20/21 21:15 08/20/21 21:17 DC Methylprednisolone Sodium Succinate (SOLU-Medrol 125MG VIAL) 125 mg 1X ONCE 08/20/21 21:15 08/20/21 21:17 DC Prochlorperazine Edisylate (Compazine) 10 mg 1X ONCE 08/20/21 21:15 08/20/21 21:17 DC Allergies Allergies Allergies Coded Allergies Type Severity Reaction Last Updated Verified grapefruit Allergy Intermediate 07/23/20 Yes hydromorphone Allergy Intermediate 07/23/20 Yes metoclopramide Allergy Intermediate 07/23/20 Yes morphine Allergy Intermediate 07/23/20 Yes phenytoin Allergy Intermediate 07/23/20 Yes trazodone Allergy Intermediate 07/23/20 Yes zolpidem Allergy Intermediate 07/23/20 Yes Physical Exam Physical Exam Constitutional: Acute on chronically ill-appearing female in respiratory distress HENT: Normocephalic, atraumatic, bilateral external ears normal, oropharynx moist, no oral exudates, nose normal. [] Eyes: PERRLA, EOMI, conjunctiva pale Neck: Normal range of motion, no tenderness, supple, no stridor. [] Cardiovascular:Heart rate tachycardic with regular rhythm, no murmur [] Lungs & Thorax: Bilateral breath sounds diminished with rhonchi noted in all lung perez Abdomen: Bowel sounds normal, soft, no tenderness, no masses, no pulsatile masses. [] Skin: Cool and pale Back: No tenderness, no CVA tenderness. [] Extremities: No tenderness, no cyanosis, no clubbing, ROM intact, no edema. [] Neurologic: Alert and oriented X 3, normal motor function, normal sensory function, no focal deficits noted. [] Current Patient Data Lab Results Laboratory Tests Test 08/20/21 21:29 Blood pH 7.33 (7.35-7.45) L Blood Gas PCO2 25 mmHg (35-45) L Blood Gas PO2 68 mmHg (71-100) L Blood Gas HCO3 13 mmol/L (22-26) L Arterial Bld O2 Saturation (Calc) 92 % (92-99) FiO2 32 % EKG EKG [] Radiology/Procedures Radiology/Procedures [] Heart Score C/O Chest Pain: No Risk Factors: Risk Factors: DM, Current or recent (<one month) smoker, HTN, HLP, family history of CAD, obesity. Risk Scores: Risk Factors: DM, Current or recent (<one month) smoker, HTN, HLP, family history of CAD, obesity. Course & Med Decision Making Course & Med Decision Making I will check labs and imaging and plan on admission. Patient has abnormal chest x-ray with infiltrates in all lung perez but appears to be worse in the left lower lobe. Certainly COVID is a possibility but I will start her on antibiotics while awaiting COVID testing results. She appears to be getting more tired with her breathing and was placed on BiPAP. I spoke to her primary care provider Dr. Ge and he recommended transfer to higher level of care given she is requiring BiPAP. Patient has very abnormal work-up including elevated BNP from priors and signs of possible pulmonary edema versus pneumonia and I am going to treat her with both with antibiotics and diuretics. She also received steroids as this could be a component of COPD as well. Patient does appear to be improving clinically and she continues to have no chest pain and she says her shortness of breath is improving. Pulmonary embolism is a consideration but she is too ill to go to the CT scanner and clinically she is improving and night and she is going to get put on heparin for an NSTEMI. Work-up for pulmonary embolism could be considered at a later time when she is more stable. Patient says that she does have a history of coronary artery disease and has seen Dr. Casey and has multiple stents placed and she thinks her last heart catheterization was 4 years ago. She will be given aspirin and heparin. Patient's will be transferred in critical condition to [facility] and was accepted by Dr. Spencer. Critical care time of 47 minutes. Dragon Disclaimer Dragon Disclaimer This electronic medical record was generated, in whole or in part, using a voice recognition dictation system. Departure Departure: Impression: Primary Impression: NSTEMI (non-ST elevated myocardial infarction) Additional Impressions: Pulmonary edema Pneumonia Anemia Lactic acid acidosis Respiratory failure Disposition: 02 [facility]ORT TERM [facility] Admitting Physician: Other (Tj) Referrals: JAYMIE GE MD (PCP) Problem Qualifiers Additional Impressions: Pulmonary edema Chronicity: acute Qualified Codes: J81.0 - Acute pulmonary edema Respiratory failure Chronicity: acute Respiratory failure complication: hypoxia Qualified Cod es: J96.01 - Acute respiratory failure with hypoxia FITZ LIAO DO August 20, 2021 22:01
--- NOTE | 2021-08-20 22:13 | RAD ---
XR CHEST 1V Clinical History: Reason: soa, low O2 sats, on bipap now / Spl. Instructions: / History: Technique: AP view of the chest was obtained at 08/20/2021 9:39 PM. Comparison: August 31, 2020. Findings: The cardiomediastinal silhouette is normal. There is patchy opacities of the lungs bilaterally the pu lmonary vessels are difficult to evaluate. The pleural margins are clear. Impression: Moderate diffuse pulmonary infiltrates could be pulmonary edema or ARDS or atypical pneumonia. Electronically signed by: Jann Corona III, MD (08/20/2021 10:11 PM) [facility]
[2021-08-20 22:48] LABS: BASO # 0.1 x10^3/uL (0.0-0.2); BASO % 1 % (0-3); EOS % 0 % (0-3); HEMATOCRIT 26.7 % (36.0-47.0); HEMOGLOBIN 8.1 g/dL (12.0-15.5); LYMPH # 2.1 x10^3/uL (1.0-4.8); LYMPH % 12 % (24-48); MEAN CORPUSCULAR HEMOGLOBIN 26 pg (25-35); MEAN CORPUSCULAR HGB CONC 30 g/dL (31-37); MEAN CORPUSCULAR VOLUME 85 fL (79-100); MONO # 0.8 x10^3/uL (0.0-1.1); MONO % 5 % (0-9); NEUT # 14.1 x10^3uL (1.8-7.7); NEUT % 82 % (31-73); PLATELET COUNT 706 x10^3/uL (140-400); RED BLOOD COUNT 3.14 x10^6/uL (3.50-5.40); RED CELL DISTRIBUTION WIDTH 17.3 % (11.5-14.5); WHITE BLOOD COUNT 17.2 x10^3/uL (4.0-11.0)
[2021-08-20 22:52] LABS: CALCIUM 9.2 mg/dL (8.5-10.1); CREATININE 1.6 mg/dL (0.6-1.0); GFR 31.3; POTASSIUM 5.1 mmol/L (3.5-5.1)
[2021-08-20 23:05] LABS: ALBUMIN 3.2 g/dL (3.4-5.0); ALBUMIN/GLOBULIN RATIO 0.6 (1.0-1.7); TOTAL BILIRUBIN 0.1 mg/dL (0.2-1.0); TOTAL PROTEIN 8.5 g/dL (6.4-8.2)
[2021-08-20] MEDS ORDERED: HEPARIN for IV BOLUS 10,000 UNIT/10 ML VIAL. IV PRN (23:30)
[2021-08-20] MEDS ORDERED: ANTI-COAG MONITOR BY PHARMACY. MC PRN (23:30)
[2021-08-20] MEDS ORDERED: HEPARIN 25,000UTS/250ML PREMIX 250 ML IV PRN (23:30)
[2021-08-20] MEDS ORDERED: HEPARIN for IV BOLUS 10,000 UNIT/10 ML VIAL. IV ONE (23:45)
[2021-08-20] MEDS ORDERED: ASPIRIN CHEWABLE 81 MG TABLET. PO ONE (23:45)
[2021-08-20] MEDS ORDERED: FUROSEMIDE 40 MG/4 ML VIAL IVP ONE (23:45)
[2021-08-20 23:49] LABS: INFLUENZA A PATIENT NEGATIVE (NEGATIVE); INFLUENZA B PATIENT NEGATIVE (NEGATIVE)
[2021-08-20 23:56] LABS: BACTERIA,URINE MANY /HPF (0-FEW); CLARITY,URINE CLEAR; COLOR,URINE YELLOW; GLUCOSE,URINE 500 mg/dL (NEG); NITRITE,URINE POS (NEG); SQUAMOUS EPITHELIAL CELL,UR FEW /LPF; UROBILINOGEN,URINE 0.2 mg/dL (0.2 mg/dL)
[2021-08-21 00:40] LABS: % BANDS 1 % (0-9); % LYMPHS 10 % (24-48); % MONOS 5 % (0-10); % SEGS 84 % (35-66); NUCLEATED RBC 3
[2021-08-21 00:41] LABS: ANISOCYTOSIS PRESENT
[2021-08-21 00:44] LABS: PLT ESTIMATE INCREASED (ADEQUATE)
[2021-08-21 00:45] LABS: TARGET CELLS FEW
[2021-08-21 00:47] LABS: MICROCYTOSIS SLIGHT
[2021-08-21 00:48] LABS: PLATELET CLUMP PRESENT
[2021-08-21] MEDS ORDERED: IV DEXTROSE 5% 100 ML IV ONE (01:25)
[2021-08-21 03:15] VITALS: BP 122/68
== END 2021-08-21 03:20 | disposition short-term general hospital (02) ==
LOC: ER 20:43
DX: I21.4 Non-ST elevation (NSTEMI) myocardial infarction (principal); J96.91 Respiratory failure, unspecified with hypoxia; J81.0 Acute pulmonary edema; J18.9 Pneumonia, unspecified organism; E87.2 Acidosis; D64.9 Anemia, unspecified; I25.10 Atherosclerotic heart disease of native coronary artery without angina pectoris; E11.9 Type 2 diabetes mellitus without complications; K21.9 Gastro-esophageal reflux disease without esophagitis; E78.00 Pure hypercholesterolemia, unspecified; I25.2 Old myocardial infarction; E66.01 Morbid (severe) obesity due to excess calories; G43.909 Migraine, unspecified, not intractable, without status migrainosus; Z68.33 Body mass index [BMI] 33.0-33.9, adult; Z20.822 Contact with and (suspected) exposure to COVID-19; Z91.018 Allergy to other foods; Z88.5 Allergy status to narcotic agent; Z88.8 Allergy status to other drugs, medicaments and biological substances
CPT/HCPCS: 36415; 36600; 71045; 80053; 81001; 82803; 83605; 83690; 83880; 84443; 84484; 85007; 85025; 85610; 85730; 86850; 86900; 86901; 87040; 87077; 87086; 87186; 87428; 93005; 94640; 94660; 96365; 96368; 96375; 96376; 99291; J0696; J0780; J1200; J1644; J1885; J1940; J2930; J7613